=== PATIENT | male | born 1955 | race Caucasian/White ===

== ENCOUNTER 2023-01-21 07:55 | Outpatient (RCR) | payer MEDICARE, SELFPAY | END 2023-03-18 12:30 | disposition home or self-care (01) | LOC: PT 07:55 | PROVIDERS: PCP Family Medicine; Visit Provider Family Medicine | DX: M54.50 Low back pain, unspecified (principal) | CPT/HCPCS: 97010; 97012; 97110; 97112; 97140; 97162; G0283 ==

== ENCOUNTER 2023-06-01 08:37 | Outpatient (OUT) | payer MEDICARE, SELFPAY ==
[2023-06-01 08:55] LABS: Basophils Absolute Auto 0.1 10^3/uL (0.0-0.1); Basophils Percent Auto 1.3 % (0.2-2.0); Eosinophils Absolute Auto 0.2 10^3/uL (0.0-0.7); Hematocrit 37.1 % (42.0-54.0); Hemoglobin 12.3 g/dL (14.0-18.0); Immature Granulocytes Abs Auto 0.07 10^3/uL (0.00-0.03); Immature Granulocytes Pct Auto 0.9 % (0.0-0.5); Lymphocytes Absolute Auto 2.2 10^3/uL (1.2-3.8); Lymphocytes Percent Auto 29.1 % (20.5-60.0); Mean Corpuscular HGB Conc 33.2 g/dL (29.9-35.2); Mean Corpuscular Hemoglobin 31.5 pg (25.9-34.0); Mean Corpuscular Volume 95.1 fL (80.0-94.0); Monocytes Absolute Auto 0.9 10^3/uL (0.3-0.8); Monocytes Percent Auto 11.4 % (1.7-12.0); Neutrophils Absolute Auto 4.2 10^3/uL (1.4-6.5); Neutrophils Percent Auto 54.3 % (43.0-75.0); Platelet Count 171 10^3/uL (150-450); Red Cell Distribution Width 13.2 % (11.0-15.0); White Blood Count 7.7 10^3/uL (4.0-11.0)
[2023-06-01 09:45] LABS: Anion Gap 9.6; BUN Creatinine Ratio 12.2; Calcium 8.5 mg/dL (8.5-10.1); Carbon Dioxide 29.4 mmol/L (21.0-32.0); Chloride 107 mmol/L (98-107); Estimated GFR (African America >60 (>=60); Estimated GFR (Non-African Ame >60 (>=60); Glucose 112 mg/dL (74-106); Sodium 142 mmol/L (136-145)
--- NOTE | 2023-06-01 14:28 | CA_ITS ---
Patient Name Site Name [facility] No Medical Record Number Age Sex Date Time [id number] [facility]:[id number] M 06/01/2023 14:04 [facility] the [facility] ECHOCARDIOGRAM REPORT PROCEDURE: CA ECHO DOPPLER COMPLETE INDICATIONS: Dyspnea on exertion, coronary artery disease,hypertension COMPARISON: None. DESCRIPTION: COMPLETE ECHOCARDIOGRAM Real-time transthoracic echocardiography with 2D, M-mode, spectral and color flow Doppler performed. QUALITY: Technical quality was good. LEFT VENTRICLE: Normal chamber size. Proximal septal hypertrophy (sigmoid septum). Normal systolic function. LV EF: Normal left ventricular ejection fraction, (>55%). DIASTOLIC: Normal diastolic function. ATRIAL SEPTUM: LEFT ATRIUM: Normal chamber size. RIGHT ATRIUM: Normal chamber size. RIGHT VENTRICLE: Normal chamber size. Normal right ventricular systolic function. TRICUSPID VALVE: Normal mobility and thickness. No stenosis with mild regurgitation. Doppler studies reveal mildly (35-45) elevated right sided pressures. RVSP 38 mmHg MITRAL VALVE: Normal mobility and thickness. No evidence of mitral valve stenosis. There is no mitral annular calcification. Mild mitral regurgitation. AORTIC VALVE: Normal trileaflet appearance. Thickened aortic valve. Normal leaflet mobility. No evidence of aortic valve stenosis. Mild to moderate aortic regurgitation. AORTIC ROOT: Normal diameter and appearance. PULMONIC VALVE: Normal thickness and mobility. No stenosis. Trivial regurgitation. PERICARDIUM: No evidence of pericardial effusion. IVC: Collapses with inspirations. IVC is normal in size. PLEURA: CONCLUSION: 1. Normal left ventricular systolic function. LVEF is 65%. 2. Normal right ventricular size and systolic function. 3. Mild mitral, tricuspid and aortic regurgitation. 4. Mildly elevated right-sided pressures. Adult Echocardiography Procedure Report Left Ventricle LVEDD (3.7 - 5.6 cm): 4.06 cm LVESD (2.2 - 4.0 cm): 2.52 cm LVIVS thickness (0.6 - 1.2 cm): 1.15 cm LVPW thickness (0.5 - 1.0 cm): 0.94 cm e': 0.10 m/s E - e': 8.98 LVOT Max Gradient: 2.19 mm[Hg] LVOT Area (cm2): 0.74 m/s Peak Velocity (LVOT): 0.74 m/s LVOT Diameter 1.97 cm Left Atrium LA Volume Index (2D A2C): 35.92 ml/m2 Left Atrium Systolic Dimension: 3.32 cm Mitral Valve MV E to A Ratio: 1.47 Mitral Valve A-Wave Peak Velocity: 0.60 m/s Mitral Valve E-Wave Peak Velocity: 0.88 m/s Right Ventricle Aorta AO Root Diam: 2.98 cm Ascending Ao Diam: 2.69 cm Aortic Valve AoV Area (Peak You): 2.75 cm2, 2.75 cm2 Peak Velocity(Antegrade Flow): 0.82 m/s Peak Gradient(Antegrade Flow): 2.66 mm[Hg] Mean Velocity(Antegrade Flow): 0.52 m/s Mean Gradient(Antegrade Flow): 1.29 mm[Hg] Velocity Time Integral: 21.15 cm Tricuspid Valve Peak Velocity (Regurgitant Flow): 2.23 m/s, 2.68 m/s, 2.95 m/s Pulmonic Valve Peak Velocity: 0.90 m/s Peak Gradient: 3.16 mm[Hg], 3.30 mm[Hg] Right Atrium Right Atrium Systolic Pressure: 42.79 ml, 42.79 ml Dictated by: Mitchell Lewis M.D. on 06/01/2023 at 18:59 Approved by: Mitchell Lewis M.D. on 06/01/2023 at 19:03
== END 2023-06-01 08:38 | disposition home or self-care (01) ==
PROVIDERS: PCP Family Medicine; Visit Provider Internal Medicine Interventional Cardiology
DX: Z01.818 Encounter for other preprocedural examination (principal); R06.02 Shortness of breath; I08.3 Combined rheumatic disorders of mitral, aortic and tricuspid valves
CPT/HCPCS: 36415; 80048; 85025; 93306

== ENCOUNTER 2023-06-04 08:36 | Outpatient (OUT) | payer MEDICARE, SELFPAY ==
--- NOTE | 2023-06-04 08:39 | CT_ITS ---
[address] [address] Patient Name: [facility]MM TAI MRN: [id number] date: 1955 Sex: M Assigned Patient Location: CT Current Patient Location: CT Accession/Order Number: [id number] Exam Date: 06/04/2023 09:00 Report Date: 06/04/2023 09:52 At the request of: EVENS GIANG Procedure: CT chest wo/w con EXAM: CT chest wo/w con HISTORY: Lung Nodule COMPARISON: 11/11/2022 TECHNIQUE: Axial CT images were obtained of the chest without and with intravenous contrast. Multiplanar reconstructions were performed. CHEST FINDINGS: Lungs/Pleura: The lungs are clear. The right apical pulmonary nodule is stable in appearance measuring 6.9 mm in greatest dimension. No pleural effusion or pneumothorax. Cardiovascular: The heart is normal in size. Mild coronary artery calcifications are present. The aorta and pulmonary arteries are unremarkable. Pericardium: No effusion. Mediastinum: Unremarkable. Lymph Nodes: No lymph node enlargement by CT size criteria. Bones: No acute osseous abnormality. Soft tissues: Unremarkable. Upper Abdomen: Unremarkable. CT/CT chest wo/w con IMPRESSION: 1. No acute abnormality of the chest. 2. Stable pulmonary nodule in the right lung apex measuring 6.9 mm. A 12 month follow-up CT is recommended for surveillance. Electronically authenticated by: VIVIAN RODRIGUEZ Date: 06/04/2023 09:52
== END 2023-06-04 08:37 | disposition home or self-care (01) ==
LOC: CT 08:36
PROVIDERS: PCP Family Medicine; Visit Provider Family Medicine
DX: R91.1 Solitary pulmonary nodule (principal)
CPT/HCPCS: 71270; Q9967

== ENCOUNTER 2023-06-23 13:39 | Outpatient (RCR) | payer MEDICARE, SELFPAY | END 2023-07-15 16:07 | disposition home or self-care (01) | LOC: PT 13:39 | PROVIDERS: PCP Family Medicine; Visit Provider Family Medicine | DX: M54.59 Other low back pain (principal) | CPT/HCPCS: 97012; 97110; 97140; 97162 ==

== ENCOUNTER 2023-07-21 08:56 | Outpatient (OUT) | payer MEDICARE, SELFPAY ==
--- NOTE | 2023-07-21 | NM_ITS ---
Patient Name: [facility]MM TAI MR#: [id number] : 1955 Exam Date: 07/21/2023 Ordering Doctor: DR RAQUEL MURILLO M.D. RADIOLOGY REPORT PROCEDURE: NM FILIBERTO PERF SPECT REST STR COMPARISON: None. INDICATIONS: CHEST PAIN TECHNIQUE: Exam Description: Stress/Rest one day protocol gated SPECT Rest Imagin.6 mCi Tc-99m Cardiolite IV on 07/21/2023 Stress Imaging 31.4 mCi Tc-99m Cardiolite IV on 07/21/2023 Exercise Protocol: 0.4 mg Lexiscan given IV Heart Rate (bpm): Rest: 47 Max: 83 PMHR: 54 Blood Pressure: Rest: 152/84 Max: 156/86 Symptoms: Rest and peak stress ECG findings were normal and the exercise portion of the study was normal per attending physician Dr. Pennington . For more details please see separate cardiac stress test report. FINDINGS: QUALITY OF STUDY: Excellent. PERFUSION DEFECT: None. LOCATION: N/A SIZE: N/A. SEVERITY: N/A. TYPE: N/A. WALL MOTION: Normal. LV SIZE: Normal. 63 mL. TID / TCD: None; 1.0 LVEF: Normal. Calculated EF 66%. SUMMARY: Myocardial perfusion imaging study is NORMAL. CONCLUSION: 1. No perfusion abnormalities. Normal myocardial perfusion scan 2. Normal exercise test Dictated by: Derrick Stephen MD on 07/22/2023 at 08:33 Approved by: Derrick Stephen MD on 07/22/2023 at 08:35
--- NOTE | 2023-07-21 | PCN_ITS ---
CARDIAC STRESS TEST Requesting Physician:? Eliane Soto M.D. ? Procedure Date:? 07/21/2023 REASON FOR THE TEST:? Chest pain. Patient underwent a Lexiscan stress test.? At baseline, the heart rate was 47 beats per minute at a blood pressure of 152/84 mm/Hg.? Following infusion, the heart rate was noted to be 83 beats per minute and the blood pressure was 156/86 mm/Hg.? Initial EKG showed sinus bradycardia with normal intervals.? Following infusion, there was no evidence of AV block or ST segment changes suggestive of ischemia.? Patient experienced symptoms of chest heaviness and back pain.? There was no evidence of any arrhythmias during the test. INTERPRETATION: 1.? No EKG evidence of ischemia seen with the stress test. 2.? No evidence of any AV block with administration of Lexiscan. 3.? Radiology Department to dictate the perfusion part of the stress test. [facility] CENTERDecue
[2023-07-21] MEDS: REGADENOSON 0.4 MG/5 ML SYRINGE IV (10:27)
== END 2023-07-21 08:57 | disposition home or self-care (01) ==
LOC: NM 08:56
PROVIDERS: PCP Family Medicine; Visit Provider Internal Medicine Interventional Cardiology
DX: R07.89 Other chest pain (principal); I25.110 Atherosclerotic heart disease of native coronary artery with unstable angina pectoris
CPT/HCPCS: 78452; 93017; A9500; J2785

== ENCOUNTER 2023-07-23 08:44 | Outpatient (OUT) | payer MEDICARE, SELFPAY ==
--- NOTE | 2023-07-23 08:47 | MR_ITS ---
[facility] [place] [id number] Patient Name: UMM TAI MRN: [id number] date: 1955 Sex: M Assigned Patient Location: MRI Current Patient Location: MRI Accession/Order Number: [id number] Exam Date: 07/23/2023 09:00 Report Date: 07/23/2023 11:29 At the request of: EVENS GIANG Procedure: MR lumbar spine wo con MR lumbar spine wo con, 07/23/2023 9:00 AM EST INDICATION: Radiculopathy Lumbar Region M54.16 COMPARISON: There is no appropriate prior study for comparison. TECHNIQUE: Multiplanar, multisequential MRI images of lumbar spine were obtained without contrast. FINDINGS: There is lumbarization of S1 For dictation purposes, the lowest complete disc space in the lumbar spine considered as S1-S2. Right renal lesion with T2 prolongation not fully characterized by this study and statistically may suggest simple renal cyst. There is loss of normal physiologic lumbar lordosis. The vertebral height is preserved. The conus medullaris is at the level of L1. No signal abnormality within the visualized spinal cord is noted. Level of T12-L1 is unremarkable. No neural foraminal narrowing or canal stenoses at the level of L1-L2 and L2-L3 is noted. At the level of L3-4, there are disc bulge with no neuroforaminal narrowing and no canal stenosis. At the level of L4-5, there are disc bulge with mild bilateral neuroforaminal narrowing and no canal stenosis. At the level of L5-S1, there are disc bulge with superimposed right lateral extrusion with inferior migration with mild right neuroforaminal narrowing and mild right canal stenosis. The right S1 nerve root is in close contact with the disc bulge in the lateral recess. The paraspinal muscles are unremarkable. MR/MR lumbar spine wo con IMPRESSION: Transitional anatomy. Mild degenerative changes of lumbar spine in particular at L5-S1. Electronically authenticated by: RUBA VARGAS Date: 07/23/2023 11:29
== END 2023-07-23 08:45 | disposition home or self-care (01) ==
LOC: MRI 08:44
PROVIDERS: PCP Family Medicine; Visit Provider Family Medicine
DX: M54.16 Radiculopathy, lumbar region (principal); M51.36 Other intervertebral disc degeneration, lumbar region
CPT/HCPCS: 72148

== ENCOUNTER 2023-08-06 10:00 | Outpatient (OUT) | payer MEDICARE, SELFPAY ==
--- NOTE | 2023-08-06 10:06 | PM.CN ---
Consult Note: HPI Data of Consult Patient: new to practice Consult date: 08/06/23 Requesting Physician: Nat Benedict NP Primary Care Provider: Eriberto Archer MD Consult Narrative Reason for consult: new pt consult Narrative: Donnie Denton a pleasant 68 year old male presents for evaluation and management of chronic lumbar pain with radiculopathy. Patient has a history of lumbar pain with radiculopathy that was responsive to NSAIDs and PT, however over the last 6 weeks he has been unable to ambulate without a walker and is finding little to no benefit from medications, PT and HEP makes his pain worse. Patient reporting pain 6/10 today in right low back radiating into buttock and right leg, describes this as a sharp shooting pain. Pain is worse with all activity and movement. cc:: CC: Nat Benedict NP Review of Systems ROS Status of ROS 10 or more systems reviewed and unremarkable except as noted in history and below Musculoskeletal Reports: back pain and muscle weakness Exam Constitutional Documenting provider has reviewed patient's vital signs: yes Common normals: no apparent distress, oriented x3, healthy appearing, alert and well nourished General appearance: cooperative HENMT Common normals: normocephalic, hearing grossly normal bilaterally and moist oral mucous membranes Head and scalp: normocephalic Eye Common normals: PERRL Pupil: PERRL Neck & C-Spine Common normals: full ROM General: normal visual inspection Chest Common normals: inspection of chest normal Respiratory Common normals: normal respiratory effort, no retractions and no use of accessory muscles Back & Pelvis Lumbar spine/lower back: ROM limited, pain with ROM and straight leg raise positive right Extremity Common normals: normal to inspection and full ROM Neuro Common normals: oriented x3, CN's II-XII intact bilaterally, moves all extremities, no focal motor deficits, no sensory deficits noted and deep tendon reflexes 2+ bilaterally Sensorium/orientation: alert Gait (neuro): antalgic and assistive device used (walker) Motor exam: no movement abnormalities noted and strength abnormal (4/5 in RLE) Psych Common normals: mental status grossly normal, thought process normal, cooperative, affect normal, speech normal and activity/motor behavior normal Speech: normal speech Thought process: normal thought process Assessment and Plan Assessment and Plan (1) Lumbar radiculopathy: Assessment and Plan: The patient has had over 3 months of moderate to severe low back pain with radiculopathy with functional impairment and inadequate response to conservative care including NSAIDS (unless there are contraindication such as concurrent blood thinners), multiple oral or topical pain medications, and home exercise program/physical therapy.? Patient has completed >6 weeks of guided home exercise program and/or formal physical therapy program without relief of their symptoms.? I have reviewed the imaging of the lumbar spine and no red flags were identified.? The imaging reveals radiographic findings consistent with lumbar radiculopathy The Oswestry Disability Index was completed, and the patient scored a 66%.? We discussed the risks and benefits of the procedure with the patient, and we are NOT planning on using sedation as outlined in the guidelines from Medicare unless there is a documented reason that sedation would be strongly recommended.?? ?The procedure will be completed with fluoroscopic guidance.? Plan -start mobic 15mg daily -right L4-5 L5-S1 under fluoroscopy -BATCH BLENDER reviewed and signed -f/u 1-2 weeks after injection
--- OUTSIDE RECORDS SUMMARY | 2023-08-06 10:39 | XMS_ITS | CCD ---
Author Name Unknown Address [address] [place] [address] Organization [facility] Care Team Providers Care Attorney Law Clerk Name Role Phone HOY ., DR HORNER Admitting Unavailable HOY ., DR HORNER Attending Unavailable HOY ., DR HORNER Primary Care Unavailable HOY ., DR HORNER Consulting Unavailable HOY ., DR HORNER Primary Care Unavailable HOY ., DR HORNER Admitting Unavailable HOY ., DR HORNER Attending Unavailable HOY ., DR HORNER Consulting Unavailable WEST, DR ANTONI Mantilla Consulting Unavailable HOY ., DR HORNER Primary Care Unavailable HOY ., DR HORNER Admitting Unavailable HOY ., DR HORNER Attending Unavailable HOY ., DR HORNER Consulting Unavailable ZIEBER, DR PA Campbell Consulting Unavailable HOY ., DR HORNER Primary Care Unavailable HOY ., DR HORNER Admitting Unavailable HOY ., DR HORNER Attending Unavailable HOY ., DR HORNER Consulting Unavailable WEST, DR ANTONI Mantilla Consulting Unavailable ANTONI PENALOZA Consulting Unavailable HOY ., DR HORNER Primary Care Unavailable HOY ., DR HORNER Admitting Unavailable HOY ., DR HORNER Attending Unavailable HOY ., DR HORNER Consulting Unavailable ANTONI JOLLEY Consulting Unavailable HOY ., DR HORNER Primary Care Unavailable LEXIS MISTRY Consulting Unavailable LEXIS MISTRY Admitting Unavailable LEXIS MISTRY Attending Unavailable JAIMIE COOPER Consulting Unavailable HOY ., DR HORNER Primary Care Unavailable HOY ., DR HORNER Admitting Unavailable HOY ., DR HORNER Attending Unavailable HOY ., DR HORNER Primary Care Unavailable HOY ., DR HORNER Attending Unavailable HOY ., DR HORNER Admluke Unavailable HOY ., DR HORNER Consulting Unavailable LAWANDA VEE Consulting Unavailable Pramod HAYWARD Attending Unavailable EL[place]HAWY, EHAB Attending Unavailable EL[place]HAWY, EHAB Admitting Unavailable [place]HAWY, EHAB Attending Unavailable BLAYNE DAILY Attending Unavailable ELIANE SOTO Referring Unavailable Evens Archer MD Attending Unavaila ble Allergies Allergy Classification Reported Allergen(s) Allergy Type Date of Onset Reaction(s) Facility (3 sources) Penicillins; 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: [penicillins] Drug allergy (disorder) 10-25-2014 [facility] Repository (2 sources) HYDROcodone; 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: [HYDROcodone] Drug Allergy 10-25-2014 [facility] Repository (1 source) nabumetone; 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: [Relafen] Drug Allergy [facility] Repository (1 source) amLODIPine; 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: [AMLODIPINE] Drug Allergy 05-20-2023 [facility] Repository (1 source) nabumetone; 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: [NABUMETONE] Drug Allergy 10-25-2014 [facility] Repository Problems Active Problems Problem Classification Problem Date Documented Date Episodic/Chronic Coronary atherosclerosis and other heart disease (3 sources) Atherosclerotic heart disease of [place] coronary artery without angina pectoris; 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: [Unstable angina] Onset: 04-24-2022 Chronic Disorders of lipid metabolism (1 source) Hyperlipidemia, unspecified; 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: [HYPERLIPIDEMIA UNSPECIFIED] Onset: 06-06-2022 Chronic Diverticulosis and diverticulitis (1 source) Diverticulitis of large intestine without perforation or abscess without bleeding; 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: [DVTRCLI LG INT NO PERF/ABSC W/O BL] Onset: 04-24-2022 Chronic Essential hypertension (1 source) Essential (primary) hypertension; 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: [ESSENTIAL PRIMARY HYPERTENSION] Onset: 06-06-2022 Chronic Gout and other crystal arthropathies (1 source) Gout, unspecified; 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: [GOUT UNSPECIFIED] Onset: 06-06-2022 Chronic Nonspecific chest pain (6 sources) Chest pain, unspecified; 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: [Other chest pain] Onset: 04-20-2022 Episodic Other connective tissue disease (6 sources) Other specified soft tissue disorders; 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: [OTHER SPEC SOFT TISSUE DISORDERS] Onset: 06-03-2022 Episodic Other lower respiratory disease (4 sources) Solitary pulmonary nodule; 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: [SOLITARY PULMONARY NODULE] Onset: 11-11-2022 Episodic Other lower respiratory disease (3 sources) Other forms of dyspnea; 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: [OTHER FORMS OF DYSPNEA] Onset: 06-06-2022 Episodic Other lower respiratory disease (2 sources) Shortness of breath; 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: [Shortness of breath] Onset: 06-17-2023 Episodic Other non-traumatic joint disorders (4 sources) Pain in right hip; 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: [PAIN IN RIGHT HIP] Onset: 11-13-2022 Episodic Other screening for suspected conditions (not mental disorders or infectious disease) (4 sources) Encounter for screening for malignant neoplasm of prostate; 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: [Encounter for screening for malignant neoplasm of rectum] Onset: 06-06-2022 Episodic Unclassified (1 source) CONTACT W/AND (SUSP) EXPOS COVID-19; 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: [CONTACT W/AND (SUSP) EXPOS COVID-19] Onset: 04-24-2022 Past or Other Problems Problem Classification Problem Date Documented Da te Episodic/Chronic Abdominal pain (1 source) Unspecified abdominal pain; 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: [UNSPECIFIED ABDOMINAL PAIN] Onset: 04-24-2022 Episodic Diabetes mellitus without complication (1 source) Other abnormal glucose; 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: [OTHER ABNORMAL GLUCOSE] Onset: 06-06-2022 Episodic Nausea and vomiting (1 source) Nausea with vomiting, unspecified; 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: [NAUSEA WITH VOMITING UNSPECIFIED] Onset: 04-24-2022 Episodic Other aftercare (1 source) [facility] (current) use of aspirin; 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: [JEWEL HOLE DRILLER CURRENT USE OF ASPIRIN] Onset: 04-24-2022 Episodic Phlebitis; thrombophlebitis and thromboembolism (6 sources) Personal history of other venous thrombosis and embolism; 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: [Embolism and thrombosis of superficial veins of left lower extremity] Onset: 12-11-2021 Episodic Spondylosis; intervertebral disc disorders; other back problems (4 sources) Radiculopathy, cervical region; 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: [RADICULOPATHY CERVICAL REGION] Onset: 08-13-2022 Episodic Results Test Name Value Interpretation Reference Range Facility 37on 07-08-2023 37 *Take lasix for 2 da ys then as needed *Limit salt/sodium intake Normal [facility] Office Visiton 07-08-2023 Follow-up visit [id number] Chung Denton 1955 M Date Provider Department Center 07/08/2023 Kevin-BLAYNE [facility]ILY [facility] Family History Problem Relation Age of Onset Heart attack Paternal Grandfather Family Status - Relation Status Age at Paternal Grandfather Level of Service:14184 MT OFFICE/OUTPATIENT ESTABLISHED MOD MDM 30-39 MIN Reason for Visit and Comments: Edema [[id number]] Normal [facility] ANESon 06-29-2023 ANES -- Attestation signed by Eliane Soto MD at 06/29/2023 9:56 AM Eliane Soto MD, MPH, [facility], [facility], [facility] Interventional Cardiology Pager Email: [email or web address] Patient: Donnie Denton Procedure Information Date/Time: 06/29/23 1030 Procedures: Coronary angiography (Bilateral) - per Maria G in pre-cert at [facility], this has already been authorized thru Aug 2023 - right femoral approach Right heart cath Location: [facility] TRIPLE VALVE TESTER 3 / [facility] (Cath) Providers: Eliane Soto MD Clinical information reviewed: Allergies Meds Physical Exam Airway Mallampati: III Cardiovascular Rhythm: regular Rate: normal Dental Pulmonary Breath sounds clear to auscultation Abdominal Anesthesia Plan ASA 3 other (Moderate sedation) Anesthetic plan and risks discussed with patient. Use of blood products discussed with patient who consented to blood products. Plan discussed with fellow and attending. Additional Equipment Requests Normal [facility] HPon 06-29-2023 HP -- Attestation signed by Eliane Soto MD at 06/29/2023 9:57 AM Eliane Soto MD, MPH, [facility], [facility], [facility] Interventional Cardiology Pager Email: [email or web address] History Of Present Illness Donnie Denton is a 68 y.o. 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 He was seen in the outpatient clinic for preoperative clearance for hernia surgery. At this time he was complaining of intermittent chest pain or shortness of breath with exertion. He had a cardiac cath in 2015 that showed moderate to severe two-vessel disease. He was evaluated by cardiothoracic surgery at [facility] and elected to pursue medical management at this time. Currently he denies any active chest pain, shortness of breath, PND, dyspnea. Past Medical History He has a past medical history of Coronary artery disease, Hyperlipidemia, and Hypertension. Surgical History He has a past surgical history that includes Cardiac catheterization; Tonsillectomy; Appendectomy; Finger amputation; and Neck surgery. Social History He reports that he has never smoked. He has never used smokeless tobacco. He reports that he does not currently use alcohol. No history on file for drug use. Allergies Hydrocodone, Nabumetone, Penicillins, and Amlodipine Medications Medications Prior to Admission Medication Sig Dispense Refill Last Dose aspirin 325 mg tablet Take 325 mg by mouth in the morning. 06/29/2023 atorvastatin (Lipitor) 40 mg tablet Take 40 mg by mouth at bedtime. 06/28/2023 carvedilol (Coreg) 25 mg tablet Take 1 tablet (25 mg) by mouth with breakfast and with evening meal. 180 tablet 3 06/29/2023 lansoprazole (Prevacid) [address] capsule Take 15 mg by mouth 2 times daily. 06/29/2023 levothyroxine (Synthroid) 50 mcg tablet Take 50 mcg by mouth. 06/28/2023 ranolazine (Ranexa) 500 mg 12 hr tablet Take 500 mg by mouth 2 times daily. 06/29/2023 zolpidem (Ambien) 10 mg tablet TAKE 1 TABLET BY MOUTH ONCE DAILY AT BEDTIME NEEDED FOR 90 DAYS 06/28/2023 Review of Systems All other systems reviewed and are negative. Physical Exam Vitals reviewed. HENT: Head: Normocephalic. Mouth/Throat: Mouth: Mucous membranes are moist. Pharynx: Oropharynx is clear. Eyes: Extraocular Movements: Extraocular movements intact. Conjunctiva/sclera: Conjunctivae normal. Cardiovascular: Rate and Rhythm: Normal rate. Pulses: Normal pulses. Pulmonary: Effort: Pulmonary effort is normal. Abdominal: General: Abdomen is flat. Musculoskeletal: General: Normal range of motion. Skin: General: Skin is warm. Capillary Refill: Capillary refill takes less than 2 seconds. Neurological: General: No focal deficit present. Mental Status: He is alert. Psychiatric: Mood and Affect: Mood normal. Last Recorded Vitals Blood pressure (!) 182/80, pulse (!) 49, resp. rate 16, SpO2 100 %. Relevant Results Reviewed Assessment/Plan Principal Problem: Pre-op evaluation Active Problems: Chest pain Shortness of breath Assessment: Two-vessel coronary artery disease Accelerating angina Dyspnea on exertion Hypertensive disorder GERD Plan: Proceed with coronary angiogram and right heart cath for preoperative clearance however in the setting of accelerating angina and dyspnea on exertion. And previous moderate to severe CAD that has been medically treated since 2014. Meaghan Mukherjee DO, MPH Supervisor [employer] [facility] Nabila 06-29-2023 KIERA RN educated pt on d/ c instructions. RN encouraged pt to voice any questions or concerns. Pt verbalizes no questions or concerns at this time. [facility] Orders Onlyon 06-17-2023 Orders Only [id number] Chung Denton 1955 Date Provider Department Center 06/17/2023 928-DEIRDRE RIDLEY [facility] Family History Problem Relation Age of Onset Heart attack Paternal Grandfather Family Status - Relation Status Age at Paternal Grandfather Normal [facility] Letter (Out)on 05-26-2023 Letter (Out) [id number] Chung Denton R 1955 M Date Provider Department Center 05/26/2023 None-None [facility] AUTH [facility] Family History Problem Relation Age of Onset Heart attack Paternal Grandfather Family Status - Relation Status Age at Paternal Grandfather Normal [facility] Office Visiton 05-20-2023 Follow-up visit [id number] Chung Denton bee R 1955 M Date Provider Department Center 05/20/2023 Richa-ELIANE SOTO [facility] Family History Problem Relation Age of Onset Heart attack Paternal Grandfather Family Status - Relation Status Age at Paternal Grandfather Level of Service:18647 MT OFFICE/OUTPATIENT [facility] 60-74 MINUTES Normal [facility] Orders Onlyon 05-20-2023 Orders Only [id number] Chung Denton bee R 1955 M Date Provider Department Center 05/20/2023 Jason5-HIMANSHU MCMILLAN [facility] Family History Problem Relation Age of Onset Heart attack Paternal Grandfather Family Status - Relation Status Age at Paternal Grandfather Normal [facility] Facesheeton 05-14-2023 Facesheet [id number] D:127 Normal [facility] Ambulatory Visit Summaryon 0 05-13-2023 Ambulatory Visit Summary DONNIE DENTON :1955 Visit Date:05/13/2023 Ambulatory Visit Instructions Your Care Team Attending Physician - LYNNETTE MUÑOZ, Pramod Campbell Primary Care Physician - Evens Archer MD This Is Your Medications List Contact prescribing physician if questions or concerns aspirin atorvastatin (atorvastatin 40 mg Tab) lansoprazole (lansoprazole 15 mg Dis Tab) levothyroxine (Synthroid 50 mcg Tab) metoprolol (metoprolol 25 mg ER Tab) nitroglycerin (NitroStat 0.4 mg Tab) ranolazine (ranolazine 500 mg oral ER Tab) zolpidem (Ambien 10 mg Tab) Procedures Performed Amputation of phalanx of finger, Appendectomy, Cardiac catheterization, Laminectomy approach to cervical spine, Tonsillectomy. Discharge Vitals Heart Rate (Peripheral) 68 Respiratory Rate 16 Blood Pressure 118/70 Height 170 cm Height 67 in Weight 63.8 kg Weight 140.36 lb BMI 22.08 Medications What How Much When Instructions Unchanged aspirin 325 Milligram By Mouth Every day Contact prescribing physician if questions or concerns Unchanged atorvastatin (atorvastatin 40 mg Tab) 1 Tablets By Mouth Every day Contact prescribing physician if questions or concerns Unchanged lansoprazole (lansoprazole 15 mg Dis Tab) 1 Tablets By Mouth 2 times a day Contact prescribing physician if questions or concerns Unchanged levothyroxine (Synthroid 50 mcg Tab) 1 Tablets By Mouth Every day Contact prescribing physician if questions or concerns Unchanged metoprolol (metoprolol 25 mg ER Tab) 0.5 Tablets By Mouth 2 times a day Contact prescribing physician if questions or concerns Unchanged nitroglycerin (NitroStat 0.4 mg Tab) 1 Tablets Sublingual Every 5 minutes Contact prescribing physician if questions or concerns Unchanged ranolazine (ranolazine 500 mg oral ER Tab) 1 Tablets By Mouth 2 times a day Contact prescribing physician if questions or concerns Unchanged zolpidem (Ambien 10 mg Tab) 1 Tablets By Mouth Once a day (at bedtime) as needed for for sleep Contact prescribing physician if questions or concerns Allergies HYDROcodone Relafen (Dysphagia) penicillins (Syncope) Problems Ongoing - Any problem that you are currently receiving treatment for. BMI 22.0-22.9, adult Cervical radiculopathy Cervical spondylosis Coronary arteriosclerosis Diverticulitis Dyshidrotic eczema Gout Hearing loss History of nephrolithiasis HTN (hypertension) Hyperlipidemia Insomnia Lumbar radiculopathy Sialolithiasis Superficial thrombosis of leg Historical - Any problem that you are no longer receiving treatment for. Amputation finger-complicated Cervicalgia Chest pain Conjunctivitis Diverticulitis of colon Dyspnea Foot pain Gastroenteritis Hematuria HTN (hypertension) Inguinal hernia Sialolithiasis Sinusitis Spondylosis of cervical spine Ureteral calculus Normal [facility] Physician Referralon 023 Physician Referral [id number] 04 [id number]#[id number] CD:127 Normal [facility] XR HIP RT 2 3V W PELVISon XR HIP RT 2 3V W PELVIS EXAM: AP of the pelvis and right hip HISTORY: . Pain in right hip joint TECHNIQUE: 2 views FINDINGS: Bony pelvis is intact. No fracture or bony destructive process is noted. No fracture or dislocation of the right hip is noted. Joint spaces well-maintained. Surrounding soft tissues are unremarkable. Impression: 1. Negative AP of the pelvis. 2. Negative right hip Electronically authenticated by: ANTONI PENALOZA Date: 2022-11-13 22:38 Normal [facility] XR LSPINE MIN 4 VIEWSon 10-17 XR LSPINE MIN 4 VIEWS EXAMINATION: XR LSPINE MIN 4 VIEWS HISTORY: Pain in right hip joint COMPARISON: No relevant comparison available. FINDINGS: BONES: Mild to moderate widespread spondylosis and facet osteoarthritis. No visible acute bony abnormality. DISC SPACES: Normal. No significant disc height narrowing, subluxation, or endplate abnormality. PARASPINOUS: Negative. No paraspinous abnormality is seen. OTHER: Negative. IMPRESSION: [id number] degenerative changes Electronically authenticated by: ANTONI TRACEY Date: 2022-11-14 07:58 Normal [facility] CREATININEon 11-11-2022 Creatinine [Mass/Vol] 1.04 mg/dL Normal 0.70-1.30 [facility] Comment on above: Performed By: #### C ASIF #### [facility] [address] [place] [address] Dr. Gianni Deluna EGFR-AF BELIZEAN >60 Normal >=60 [facility] Comment on above: Performed By: #### C ASIF #### [facility] [address] [place] [address] Dr. Gianni Deluna EGFR-NON AF BELIZEAN >60 Normal >=60 [facility] Comment on above: Performed By: #### C ASIF #### [facility] [address] [place] [address] CHEST W CONon 11-11-2022 CT CHEST W CON EXAMINATION: CT CHES T W CON HISTORY: Influenza ; follow-up lung nodule, chronic chest pain COMPARISON: No relevant comparison available. TECHNIQUE: Multi-planar CT images were created with IV contrast. Axial, Coronal, and Sagittal images. Dose reduction techniques were achieved by using automated exposure control and/or adjustment of mA and/or kV according to patient size and/or use of iterative reconstruction technique. FINDINGS: LUNGS: 7 x 5 x 4 mm nodule within right lung apex. No pulmonary infiltrates or significant chronic interstitial changes. PLEURA: Apical pleural scarring. No pneumothorax or pleural effusion. VASCULATURE: No abnormality. LESLEY: No mass or adenopathy. MEDIASTINUM: No mass or adenopathy. CARDIAC: No enlargement, pericardial thickening, or significant calcification. AORTA: No aneurysm or dissection. CHEST WALL: No mass or axillary adenopathy. BONES: Transverse fracture across the proximal sternum, below the sternomanubrial joint, with 1 mm step off and increased density of the marrow cavity. LIMITED ABDOMEN: No suspicious findings Limited images of the upper abdomen. OTHER: Negative. IMPRESSION: 1. Right apical 7 x 5 x 4 mm nodule; not overtly suspicious but follow-up imaging in 6 months is recommended to document stability. No prior studies or reports available for comparison. 2. Subacute, essentially nondisplaced, fracture of the proximal sternum. Electronically authenticated by: PA CROW Date: 2022-11-11 11:29 Normal [facility] MRI [facility] WO CONon 08-14-20 MRI [facility] CON EXAMINATION: [facility] HISTORY: Cervical radiculopathy COMPARISON: No relevant comparison available. TECHNIQUE: A variety of imaging planes and parameters were utilized for visualization of suspected pathology. FINDINGS: CRANIOCERVICAL AREA: Normal foramen magnum with no Chiari malformation. PARASPINAL AREA: Normal with no visible mass. BONES: Straightening of normal cervical lordosis. No acute fracture or spondylolisthesis. Signal dropout from anterior fusion hardware extending from C4 to C6. CORD: Normal caliber, contour, and signal intensity. CERVICAL DISC LEVELS: C2-C3: Early degenerative disc disease is present without focal protrusion or neural impingement. C3-C4: Moderate disc space narrowing and disc desiccation. Mild diffuse disc/osteophyte complex deforms the ventral spinal cord narrowing the central canal to 7.1 mm in AP dimension. No definite foraminal stenosis C4-C5: Anterior fusion. No central or foraminal stenosis C5-C6: Anterior fusion. No central or foraminal stenosis C6-C7: Moderate to severe disc space narrowing. Moderate diffuse disc/osteophyte complex. Narrowing of the central canal to 8.9 mm in AP dimension. Moderate right and mild left foraminal stenosis C7-T1:. No significant disc/facet abnormality, spinal stenosis, or foraminal stenosis. IMPRESSION: Degenerative changes most significant at C6-C7 where there is moderate right and mild left foraminal stenosis Electronically authenticated by: ANTONI TRACEY Date: 2022-08-14 09:19 Normal [facility] INSULINon 06-04-2022 Insulin 13.5 uIU/mL Normal 2.6-24.9 [facility] Comment on above: Performed By: #### L ACT #### [facility] [address] [place] [address] Dr. Gianni Deluna CBC AUTO DIFFon 06-03-2022 BASO # 0.1 103/ul Normal 0.0-0.1 [facility] Comment on above: Performed By: #### L ACT #### [facility] [address] [place] [address] Dr. Gianni Deluna Basophils/100 WBC (Bld) 1.2 % Normal 0.2-2.0 [facility] Comment on above: Performed By: #### L ACT #### [facility] [address] [place] [address] Dr. Gianni Deluna EO # 0.4 103/ul Normal 0.0-0.7 [facility] Comment on above: Performed By: #### L ACT #### [facility] [address] [place] [address] Dr. Gianni Deluna Eosinophils/100 WBC (Bld) 5.9 % Normal 0.9-7.0 [facility] Comment on above: Performed By: #### L ACT #### [facility] [address] [place] [address] Dr. Gianni Deluna Erythrocyte distribution width (RBC) [Ratio] 13.4 % Normal 11.0-15.0 [facility] Comment on above: Performed By: #### L ACT #### [facility] [address] [place] [address] Dr. Gianni Deluna Hematocrit (Bld) [Volume fraction] 39.6 % Critically low 42.0-54.0 [facility] Comment on above: Performed By: #### L ACT #### [facility] [address] [place] [address] Dr. Gianni Deluna Hemoglobin (Bld) [Mass/Vol] 12.8 g/dL Critically low 14.0-18.0 [facility] Comment on above: Performed By: #### L ACT #### [facility] [address] [place] [address] Dr. Gianni Deluna IG # 0.04 10e3/ul Critically high 0.00-0.03 [facility] Comment on above: Performed By: #### L ACT #### [facility] [address] [place] [address] Dr. Gianni Deluna IG % 0.7 % Critically high 0.0-0.5 [facility] Comment on above: Performed By: #### L ACT #### [facility] [address] [place] [address] Dr. Gianni Deluna LYMPH # 1.9 103/ul Normal 1.2-3.8 [facility] Comment on above: Performed By: #### L ACT #### [facility] [address] [place] [address] Dr. Gianni Deluna Lymphocytes/100 WBC (Bld) 31.7 % Normal 20.5-60.0 [facility] Comment on above: Performed By: #### L ACT #### [facility] [address] [place] [address] Dr. Gianni Deluna MANUAL DIFF REQ NO Normal [facility] Comment on above: Performed By: #### L ACT #### [facility] [address] [place] [address] Dr. Gianni Deluna MCH (RBC) [Entitic mass] 30.2 pg Normal 25.9-34.0 [facility] Comment on above: Performed By: #### L ACT #### [facility] [address] [place] [address] Dr. Gianni Deluna MCHC (RBC) [Mass/Vol] 32.3 g/dL Normal 29.9-35.2 [facility] Comment on above: Performed By: #### L ACT #### [facility] [address] [address] [address] Gianni Deluna MCV (RBC) [Entitic vol] 93.4 fL Normal 80.0-94.0 [facility] Comment on above: Performed By: #### L ACT #### [facility] [address] [address] [address] Gianni Deluna MONO # 0.7 103/ul Normal 0.3-0.8 [facility] Comment on above: Performed By: #### L ACT #### [facility] [address] [address] [address] Gianni Deluna Monocytes/100 WBC (Bld) 11.9 % Normal 1.7-12.0 [facility] Comment on above: Performed By: #### L ACT #### [facility] [address] [address] [address] Gianni Deluna NEUT # 2.9 103/ul Normal 1.4-6.5 [facility] Comment on above: Performed By: #### L ACT #### [facility] [address] [address] [address] Gianni Deluna Neutrophils/100 WBC (Bld) 48.6 % Normal 43.0-75.0 [facility] Comment on above: Performed By: #### L ACT #### [facility] [address] [address] [address] Gianni Deluna Platelet mean volume (Bld) [Entitic vol] 9.1 fL Critically low 9.5-13.5 [facility] Comment on above: Performed By: #### L ACT #### [facility] [address] [address] [address] Gianni Deluna PLT 168 103/ul Normal 150-450 [facility] Comment on above: Performed By: #### L ACT #### [facility] [address] [address] [address] Gianni Deluna RBC 4.24 106/ul Critically low 4.70-6.10 [facility] Comment on above: Performed By: #### L ACT #### [facility] [address] [address] [address] Gianni Deluna WBC 6.0 103/ul Normal 4.0-11.0 [facility] Comment on above: Performed By: #### L ACT #### [facility] [address] [address] [address] Gianni Deluna FREE THYROXINE INDEX T7on FTI 1.91 Normal 1.30-4.50 [facility] Comment on above: Performed By: #### L ACT #### [facility] [address] [address] [address] Gianni Deluna T3U 36.0 % Normal 33.0-40.0 [facility] Comment on above: Performed By: #### L ACT #### [facility] [address] [place] [address] Dr. Gianni Deluna T4 [Mass/Vol] 5.30 ug/dL Normal 4.50-12.10 [facility] Comment on above: Performed By: #### L ACT #### [facility] [address] [address] [address] Gianni Deluna GLYCOHEMOGLOBIN A1Con 2021 ADA RECOMMENDATION SEE BELOW Normal [facility] Comment on above: Result Comment: ADA RECOMMENDED LIMIT 4.0 - 6.0 ADA THERAPEUTIC TARGET < 7.0 ACTION SUGGESTED > 7.0 Performed By: #### D DIM #### [facility] [address] [address] [address] Gianni Deluna Glucose [Mass/Vol] 140 mg/dL Normal [facility] Comment on above: Performed By: #### D DIM #### [facility] [address] [address] [address] Gianni Deluna HbA1c (Bld) [Mass fraction] 6.5 % Critically high 4.5-6.2 [facility] Comment on above: Performed By: #### D DIM #### [facility] [address] [place] [address] Dr. Gianni Deluna LIPID PROFILEon 06-03-2022 CHOL-HDL RATIO NORM SEE BELOW Normal [facility] Comment on above: Result Comment: 3.3 - 4.4 LOW RISK 4.4 - 7.1 AVERAGE RISK 7.1 - 11.0 MODERATE RISK >11.0 HIGH RISK Performed By: #### T SH, T7, URIC, CMP, LIPID #### [facility] [address] [address] [address] Gianni Deluna Cholesterol [Mass/Vol] 104 mg/dL Normal <=200 [facility] Comment on above: Performed By: #### T SH, T7, URIC, CMP, LIPID #### [facility] [address] [address] [address] Gianni Deluna Cholesterol in HDL [Mass/Vol] 49 mg/dL Normal 40-60 [facility] Comment on above: Performed By: #### T SH, T7, URIC, CMP, LIPID #### [facility] [address] [place] [address] Dr. Gianni Deluna Cholesterol in LDL [Mass/Vol] 46.6 mg/dL Normal [facility] Comment on above: Performed By: #### T SH, T7, URIC, CMP, LIPID #### [facility] [address] [address] [address] Gianni Deluna Cholesterol.total/Ch olesterol in HDL [Mass ratio] 2.1 {ratio} Normal [facility] Comment on above: Performed By: #### T SH, T7, URIC, CMP, LIPID #### [facility] [address] [address] [address] Gianni Deluna HDL NORMAL > or = 60 mg/dl - LO W CARDIOVASCULAR RISK <40 mg/dl - HIGH CARDIOVASCULAR RISK Normal [facility] Comment on above: Performed By: #### T SH, T7, URIC, CMP, LIPID #### [facility] [address] [place] [address] Dr. Gianni Deluna LDL CALC NORMAL SEE BELOW Normal [facility] Comment on above: Result Comment: <100 mg/dl OPTIMAL 100 - 129 mg/dl NEAR OR ABOVE OPTIMAL 130 - 159 mg/dl BORDERLINE HIGH 160 - 189 mg/dl HIGH >190 mg/dl VERY HIGH Performed By: #### T SH, T7, URIC, CMP, LIPID #### [facility] [address] [address] [address] Gianni Deluna Triglyceride [Mass/Vol] 42 mg/dL Normal <=150 [facility] Comment on above: Performed By: #### T SH, T7, URIC, CMP, LIPID #### [facility] [address] [address] [address] Gianni Deluna VLDL CALC 8.4 mg/dL Normal [facility] Comment on above: Performed By: #### T SH, T7, URIC, CMP, LIPID #### [facility] [address] [place] [address] Dr. Gianni Deluna PROF 14(COMP METB)on 022 Albumin [Mass/Vol] 2.9 g/dL Critically low 3.4-5.0 [facility] Comment on above: Performed By: #### T SH, T7, URIC, CMP, LIPID #### [facility] [address] [place] [address] Dr. Gianni Deluna Albumin/Globulin [Mass ratio] 0.8 {ratio} Normal [facility] Comment on above: Performed By: #### T SH, T7, URIC, CMP, LIPID #### [facility] [address] [address] [address] Gianni Deluna ALP [Catalytic activity/Vol] 127 U/L Critically high 46-116 [facility] Comment on above: Performed By: #### T SH, T7, URIC, CMP, LIPID #### [facility] [address] [address] [address] Gianni Deluna ALT [Catalytic activity/Vol] 23 U/L Normal 16-63 [facility] Comment on above: Performed By: #### T SH, T7, URIC, CMP, LIPID #### [facility] [address] [place] [address] Dr. Gianni Deluna Anion gap [Moles/Vol] 8.4 mmol/L Normal [facility] Comment on above: Performed By: #### T SH, T7, URIC, CMP, LIPID #### [facility] [address] [place] [address] Dr. Gianni Deluna AST [Catalytic activity/Vol] 21 U/L Normal 15-37 [facility] Comment on above: Performed By: #### T SH, T7, URIC, CMP, LIPID #### [facility] [address] [address] [address] Ginani Deluna Bilirubin [Mass/Vol] 0.5 mg/dL Normal 0.2-1.0 [facility] Comment on above: Performed By: #### T SH, T7, URIC, CMP, LIPID #### [facility] [address] [address] [address] Gianni Deluna Calcium [Mass/Vol] 8.3 mg/dL Critically low 8.5-10.1 [facility] Comment on above: Performed By: #### T SH, T7, URIC, CMP, LIPID #### [facility] [address] [place] [address] Dr. Gianni Deluna Chloride [Moles/Vol] 107 mmol/L Normal 98-107 [facility] Comment on above: Performed By: #### T SH, T7, URIC, CMP, LIPID #### [facility] [address] [address] [address] Gianni Deluna CO2 [Moles/Vol] 30.6 mmol/L Normal 21.0-32.0 [facility] Comment on above: Performed By: #### T SH, T7, URIC, CMP, LIPID #### [facility] [address] [address] [address] Gianni Deluna Creatinine [Mass/Vol] 0.93 mg/dL Normal 0.70-1.30 [facility] Comment on above: Performed By: #### T SH, T7, URIC, CMP, LIPID #### [facility] [address] [address] [address] Gianni Deluna EGFR-AF BELIZEAN >60 Normal >=60 [facility] Comment on above: Performed By: #### T SH, T7, URIC, CMP, LIPID #### [facility] [address] [address] [address] Gianni Deluna EGFR-NON AF BELIZEAN >60 Normal >=60 [facility] Comment on above: Performed By: #### T SH, T7, URIC, CMP, LIPID #### [facility] [address] [place] [address] Dr. Gianni Deluna Globulin (S) [Mass/Vol] 3.5 g/dL Normal [facility] Comment on above: Performed By: #### T SH, T7, URIC, CMP, LIPID #### [facility] [address] [place] [address] Dr. Gianni Deluna Glucose [Mass/Vol] 114 mg/dL Critically high 74-106 [facility] Comment on above: Performed By: #### T SH, T7, URIC, CMP, LIPID #### [facility] [address] [place] [address] Dr. Gianni Deluna Potassium [Moles/Vol] 4.0 mmol/L Normal 3.5-5.1 [facility] Comment on above: Performed By: #### T SH, T7, URIC, CMP, LIPID #### [facility] [address] [place] [address] Dr. Gianni Deluna Protein [Mass/Vol] 6.4 g/dL Normal 6.4-8.2 [facility] Comment on above: Performed By: #### T SH, T7, URIC, CMP, LIPID #### [facility] [address] [place] [address] Dr. Gianni Deluna Sodium [Moles/Vol] 142 mmol/L Normal 136-145 [facility] Comment on above: Performed By: #### T SH, T7, URIC, CMP, LIPID #### [facility] [address] [place] [address] Dr. Gianni Deluna Urea nitrogen [Mass/Vol] 11.0 mg/dL Normal 7.0-18.0 [facility] Comment on above: Performed By: #### T SH, T7, URIC, CMP, LIPID #### [facility] [address] [place] [address] Dr. Gianni Deluna Urea nitrogen/Creatinine [Mass ratio] 11.8 mg/mg Normal [facility] Comment on above: Performed By: #### T SH, T7, URIC, CMP, LIPID #### [facility] [address] [place] [address] Dr. Gianni Deluna TSHon 06-03-2022 TSH 0.814 uIU/mL Normal 0.358-3.740 [facility] Comment on above: Performed By: #### L ACT #### [facility] [address] [place] [address] Dr. Gianni Deluna URIC ACID SERUMon 06-03-2022 Urate [Mass/Vol] 5.2 mg/dL Normal 3.5-7.2 [facility] Comment on above: Performed By: #### T SH, T7, URIC, CMP, LIPID #### [facility] [address] [place] [address] Dr. Gianni Deluna CARDIAC ALEX 3-6on 2 CK [Catalytic activity/Vol] 82 U/L Normal 39-308 [facility] Comment on above: Performed By: #### L ACT #### [facility] [address] [place] [address] Dr. Gianni Deluna CK.MB [Mass/Vol] 2.40 ng/mL Normal <=3.60 [facility] Comment on above: Performed By: #### L ACT #### [facility] [address] [place] [address] Dr. Gianni Deluna HSTROP 8.6 pg/mL Normal 4.0-76.1 [facility] Comment on above: Result Comment: CUT- OFF POINTS HAVE BEEN ESTABLISHED BASED ON THE FOURTH UNIVERSAL DEFINITIONS OF MYOCARDIAL INFARCTION. THE UPPER REFERENCE LIMIT (URL) OF TROPONIN, DEFINED THE 99TH PERCENTILE OF cTnI DISTRIBUTION IN A REFERENCE POPULATION, HAS BEEN CONFIRMED THE DECISION THRESHOLD FOR [place] DIAGNOSIS. Performed By: #### L ACT #### [facility] [address] [place] [address] ABD/PELV W CONon 04-21-20 CT ABD/PELV W CON EXAMINATION: CT ABD/PELV W CON HISTORY: NAUSEA WITH VOMITING, UNSPECIFIED COMPARISON: 11/26/2015 TECHNIQUE: CT of the abdomen and pelvis with intravenous contrast Dose reduction techniques were achieved by using automated exposure control and/or adjustment of mA and/or kV according to patient size and/or use of iterative reconstruction technique. FINDINGS: TUBES AND IMPLANTS: None LOWER CHEST: Unremarkable ABDOMEN and PELVIS ABDOMINAL WALL AND SOFT TISSUES: Small bilateral inguinal hernias. BONES: No suspicious lesions. Multilevel degenerative changes of the spine. ARTERIES: Mild aortoiliac calcifications without aneurysm VEINS: Unremarkable. LYMPH NODES: Unremarkable. PERITONEUM/ RETROPERITONEUM: Unremarkable. BOWEL: Extensive sigmoid diverticula without surrounding inflammatory changes. There is sigmoid wall thickening. APPENDIX: Not identified. LIVER: Unremarkable. GALLBLADDER: Unremarkable. BILE DUCTS: Not dilated SPLEEN: Unremarkable. PANCREAS: Unremarkable. ADRENALS: Unremarkable. KIDNEYS/ URETERS: Unremarkable. REPRODUCTIVE ORGANS: A prostatic calcification. No prostatomegaly. URINARY BLADDER: Unremarkable. IMPRESSION: 1. Extensive sigmoid diverticula without stranding inflammatory changes. There is sigmoid wall thickening. Sigmoid colitis or acute diverticulitis in the right clinical setting. 2. Small bilateral fat-containing inguinal hernias. Electronically authenticated by: JAIMIE COOPER Date: 2022-04-21 00:38 Normal [facility] LACTATE/LACTIC ACIDon 2021 Lactate [Moles/Vol] 2.2 mmol/L Critically high 0.4-1.9 [facility] Comment on above: Performed By: #### L ACT #### [facility] [address] [address] [address] Gianni Deluna AMYLASEon 04-20-2022 Amylase [Catalytic activity/Vol] 139 U/L Critically high 25-115 [facility] Comment on above: Performed By: #### L ACT #### [facility] [address] [address] [address] Gianni Deluna CARDIAC ALEX ADMITon 022 CK [Catalytic activity/Vol] 88 U/L Normal 39-308 [facility] Comment on above: Performed By: #### C MADM #### [facility] [address] [address] [address] Gianni Deluna CK.MB [Mass/Vol] 1.82 ng/mL Normal <=3.60 [facility] Comment on above: Performed By: #### C MADM #### [facility] [address] [address] [address] Gianni Deluna HSTROP 7.2 pg/mL Normal 4.0-76.1 [facility] Comment on above: Result Comment: CUT- OFF POINTS HAVE BEEN ESTABLISHED BASED ON THE FOURTH UNIVERSAL DEFINITIONS OF MYOCARDIAL INFARCTION. THE UPPER REFERENCE LIMIT (URL) OF TROPONIN, DEFINED THE 99TH PERCENTILE OF cTnI DISTRIBUTION IN A REFERENCE POPULATION, HAS BEEN CONFIRMED THE DECISION THRESHOLD FOR NH DIAGNOSIS. Performed By: #### C MADM #### [facility] [address] [place] [address] Dr. Gianni Deluna FILIBERTO 93 ng/mL Normal 16-96 [facility] Comment on above: Performed By: #### C MADM #### [facility] [address] [place] [address] Dr. Gianni Deluna CBC AUTO DIFFon 04-20-2022 BASO # 0.0 103/ul Normal 0.0-0.1 [facility] Comment on above: Performed By: #### C BC #### [facility] [address] [place] [address] Dr. Gianni Deluna Basophils/100 WBC (Bld) 0.3 % Normal 0.2-2.0 [facility] Comment on above: Performed By: #### C BC #### [facility] [address] [place] [address] Dr. Gianni Deluna EO # 0.0 103/ul Normal 0.0-0.7 [facility] Comment on above: Performed By: #### C BC #### [facility] [address] [place] [address] Dr. Gianni Deluna Eosinophils/100 WBC (Bld) 0.1 % Critically low 0.9-7.0 [facility] Comment on above: Performed By: #### C BC #### [facility] [address] [place] [address] Dr. Gianni Deluna Erythrocyte distribution width (RBC) [Ratio] 13.5 % Normal 11.0-15.0 [facility] Comment on above: Performed By: #### C BC #### [facility] [address] [place] [address] Dr. Gianni Deluna Hematocrit (Bld) [Volume fraction] 45.8 % Normal 42.0-54.0 [facility] Comment on above: Performed By: #### C BC #### [facility] [address] [address] [address] Gianni Deluna Hemoglobin (Bld) [Mass/Vol] 15.3 g/dL Normal 14.0-18.0 [facility] Comment on above: Performed By: #### C BC #### [facility] [address] [address] [address] Gianni Deluna IG # 0.05 10e3/ul Critically high 0.00-0.03 [facility] Comment on above: Performed By: #### C BC #### [facility] [address] [place] [address] Dr. Gianni Deluna IG % 0.5 % Normal 0.0-0.5 [facility] Comment on above: Performed By: #### C BC #### [facility] [address] [address] [address] Gianni Deluna LYMPH # 0.8 103/ul Critically low 1.2-3.8 [facility] Comment on above: Performed By: #### C BC #### [facility] [address] [place] [address] Dr. Gianni Deluna Lymphocytes/100 WBC (Bld) 7.7 % Critically low 20.5-60.0 [facility] Comment on above: Performed By: #### C BC #### [facility] [address] [address] [address] Gianni Deluna MANUAL DIFF REQ NO Normal [facility] Comment on above: Performed By: #### C BC #### [facility] [address] [address] [address] Gianni Deluna MCH (RBC) [Entitic mass] 30.4 pg Normal 25.9-34.0 [facility] Comment on above: Performed By: #### C BC #### [facility] [address] [place] [address] Dr. Gianni Deluna MCHC (RBC) [Mass/Vol] 33.4 g/dL Normal 29.9-35.2 [facility] Comment on above: Performed By: #### C BC #### [facility] [address] [place] [address] Dr. Gianni Deluna MCV (RBC) [Entitic vol] 90.9 fL Normal 80.0-94.0 [facility] Comment on above: Performed By: #### C BC #### [facility] [address] [place] [address] Dr. Gianni Deluna MONO # 0.4 103/ul Normal 0.3-0.8 [facility] Comment on above: Performed By: #### C BC #### [facility] [address] [place] [address] Dr. Gianni Deluna Monocytes/100 WBC (Bld) 3.3 % Normal 1.7-12.0 [facility] Comment on above: Performed By: #### C BC #### [facility] [address] [place] [address] Dr. Gianni Deluna NEUT # 9.7 103/ul Critically high 1.4-6.5 [facility] Comment on above: Performed By: #### C BC #### [facility] [address] [place] [address] Dr. Gianni Deluna Neutrophils/100 WBC (Bld) 88.1 % Critically high 43.0-75.0 [facility] Comment on above: Performed By: #### C BC #### [facility] [address] [place] [address] Dr. Gianni Deluna Platelet mean volume (Bld) [Entitic vol] 8.9 fL Critically low 9.5-13.5 [facility] Comment on above: Performed By: #### C BC #### [facility] [address] [place] [address] Dr. Gianni Deluna PLT 198 103/ul Normal 150-450 [facility] Comment on above: Performed By: #### C BC #### [facility] [address] [place] [address] Dr. Gianni Deluna RBC 5.04 106/ul Normal 4.70-6.10 [facility] Comment on above: Performed By: #### C BC #### [facility] [address] [address] [address] Gianni Deluna WBC 11.0 103/ul Normal 4.0-11.0 [facility] Comment on above: Performed By: #### C BC #### [facility] [address] [place] [address] Dr. Gianni Deluna Covid-19 PCR ([facility])on SARS-CoV-2 (COVID-19) RNA NICHOLE+probe Ql (Unsp spec) Not detected Normal NOT DETECTED [facility] Comment on above: Result Comment: When diagnostic testing is negative, the possibility of a false negative should be considered in the context of a patient's recent exposures and the presence of clinical signs and symptoms consistent with SARS-CoV-2. This test is not yet approved or cleared by the [place] FDA. When there are no FDA-approved or cleared tests available, and other criteria are met, FDA can make tests available under an emergency access mechanism called an Emergency Use Authorization (EUA). The EUA for this test is supported by the [employer] of Health and Human Service's declaration that circumstances exist to justify the emergency use of in vitro diagnostics for the detection and/or diagnosis of the virus that causes COVID-19. This EUA will remain in effect for the duration of the COVID-19 declaration justifying emergency of IVDs, unless it is terminated or revoked by the FDA (after which the test may no longer be used). Performed By: #### C VDTBH #### [facility] [address] [place] [address] Dr. Gianni Deluna D-DIMERon 04-20-2022 D-DIMER 0.37 mg/L FEU Normal <=0.59 [facility] Comment on above: Performed By: #### D DIM #### [facility] [address] [place] [address] Dr. Gianni Deluna D-DIMER COMMENTS SEE BELOW Normal [facility] Comment on above: Result Comment: Incr eases in D-Dimer concentration observed with thromboembolic events can be variable due to localization, size, and age of the thrombus. Therefore, a thromboembolic event cannot be diagnosed with certainty on the basis of the reference range. D-Dimers may also be elevated for a variety of disorders including: advanced age, , coronary disease, cancer, liver disease, infection, inflammation, hematoma, DIC, trauma, post-surgery, diabetes, thrombolytic or anticoagulant therapy, stress, and generalized hospitalization. Performed By: #### D DIM #### [facility] [address] [place] [address] Dr. Gianni Deluna LACTATE/LACTIC ACIDon 2021 Lactate [Moles/Vol] 2.3 mmol/L Critically high 0.4-1.9 [facility] Comment on above: Performed By: #### L ACT #### [facility] [address] [place] [address] Dr. Gianni Deluna LIPASEon 04-20-2022 Lipase [Catalytic activity/Vol] 48.0 U/L Critically low 73.0-393.0 [facility] Comment on above: Performed By: #### L ACT #### [facility] [address] [place] [address] Dr. Gianni Deluna PROF 14(COMP METB)on 022 Albumin [Mass/Vol] 3.9 g/dL Normal 3.4-5.0 [facility] Comment on above: Performed By: #### L ACT #### [facility] [address] [place] [address] Dr. Gianni Deluna Albumin/Globulin [Mass ratio] 1.0 {ratio} Normal [facility] Comment on above: Performed By: #### L ACT #### [facility] [address] [place] [address] Dr. Gianni Deluna ALP [Catalytic activity/Vol] 127 U/L Critically high 46-116 [facility] Comment on above: Performed By: #### L ACT #### [facility] [address] [place] [address] Dr. Gianni Deluna ALT [Catalytic activity/Vol] 27 U/L Normal 16-63 [facility] Comment on above: Performed By: #### L ACT #### [facility] [address] [place] [address] Dr. Gianni Deluna Anion gap [Moles/Vol] 15.9 mmol/L Normal [facility] Comment on above: Performed By: #### L ACT #### [facility] [address] [address] [address] Gianni Deluna AST [Catalytic activity/Vol] 27 U/L Normal 15-37 [facility] Comment on above: Performed By: #### L ACT #### [facility] [address] [address] [address] Gianni Deluna Bilirubin [Mass/Vol] 0.9 mg/dL Normal 0.2-1.0 [facility] Comment on above: Performed By: #### L ACT #### [facility] [address] [address] [address] Gianni Deluna Calcium [Mass/Vol] 8.9 mg/dL Normal 8.5-10.1 [facility] Comment on above: Performed By: #### L ACT #### [facility] [address] [address] [address] Gianni Deluna Chloride [Moles/Vol] 103 mmol/L Normal 98-107 [facility] Comment on above: Performed By: #### L ACT #### [facility] [address] [address] [address] Gianni Deluna CO2 [Moles/Vol] 24.2 mmol/L Normal 21.0-32.0 [facility] Comment on above: Performed By: #### L ACT #### [facility] [address] [address] [address] Gianni Deluna Creatinine [Mass/Vol] 1.27 mg/dL Normal 0.70-1.30 [facility] Comment on above: Performed By: #### L ACT #### [facility] [address] [address] [address] Gianni Deluna EGFR-AF BELIZEAN >60 Normal >=60 [facility] Comment on above: Performed By: #### L ACT #### [facility] [address] [address] [address] Gianni Deluna EGFR-NON AF BELIZEAN 56 mL/min/1.73m2 Critically low >=60 [facility] Comment on above: Performed By: #### L ACT #### [facility] [address] [place] [address] Dr. Gianni Deluna Globulin (S) [Mass/Vol] 3.9 g/dL Normal [facility] [facility] Comment on above: Performed By: #### L ACT #### [facility] [address] [address] [address] Gianni Deluna Glucose [Mass/Vol] 145 mg/dL Critically high 74-106 [facility] Comment on above: Performed By: #### L ACT #### [facility] [address] [place] [address] Dr. Gianni Deluna Potassium [Moles/Vol] 4.1 mmol/L Normal 3.5-5.1 [facility] Comment on above: Performed By: #### L ACT #### [facility] [address] [place] [address] Dr. Gianni Deluna Protein [Mass/Vol] 7.8 g/dL Normal 6.4-8.2 [facility] Comment on above: Performed By: #### L ACT #### [facility] [address] [place] [address] Dr. Gianni Deluna Sodium [Moles/Vol] 139 mmol/L Normal 136-145 [facility] Comment on above: Performed By: #### L ACT #### [facility] [address] [place] [address] Dr. Gianni Deluna Urea nitrogen [Mass/Vol] 22.0 mg/dL Critically high 7.0-18.0 [facility] Comment on above: Performed By: #### L ACT #### [facility] [address] [place] [address] Dr. Gianni Deluna Urea nitrogen/Creatinine [Mass ratio] 17.3 mg/mg Normal [facility] Comment on above: Performed By: #### L ACT #### [facility] [address] [place] [address] Dr. Gianni Deluna XR ABD FLAT UP_PA Graciela 04-20 XR ABD FLAT UP_PA CH XR ABD FLAT UP_PA C H 04/20/2022 8:53 PM EDT CLINICAL INDICATION: Nausea with vomiting COMPARISON: 01/31/2020 TECHNIQUE: Upright and supine AP views of the chest, abdomen and pelvis. FINDINGS: Spinal cervical hardware is noted. The cardiomediastinal silhouette and pulmonary vasculature are within normal limits. No focal opacity concerning for consolidation. No pneumothorax or pleural effusion. No definite free intraperitoneal air, portal venous gas or pneumatosis intestinalis. Nondilated small and large bowel loops are seen. There are nonspecific air-fluid levels seen within the large and small bowel. No suspicious calcifications. The bones demonstrate degenerative changes. The soft tissues are unremarkable. IMPRESSION: No acute cardiopulmonary abnormality. Nonspecific bowel gas pattern with air-fluid levels seen within nondilated the large and small bowel. Electronically authenticated by: JAIMIE COOPER Date: 2022-04-20 21:58 Normal [facility] US RICHELLE DOP LEG LTon 03-18-20 US RICHELLE DOP LEG LT Ultrasound venous duplex scan left lower extremity CLINICAL: Left leg pain and swelling, lump at left ankle/foot. TECHNIQUE: Lowery-scale, color Doppler and Duplex examination of the left lower extremity was performed with and without provocative maneuvers. FINDINGS: Comparison: None. Sonographic examination of the left lower extremity deep venous system to include the common femoral, superficial femoral and popliteal veins, demonstrates normal compressibility, color-flow, respiratory variation, and augmentation. The origin of the greater saphenous vein demonstrates normal compression, and there is normal color-flow in the proximal profunda femoral vein. There is normal compression of the posterior tibial, anterior tibial, and peroneal veins. Normal compression of the small saphenous veins. The superficial branch of the greater saphenous vein at the anterior ankle demonstrates lack of compression compatible with superficial thrombus. The remainder of the greater saphenous vein is patent. IMPRESSION: 1. No deep venous thrombosis in the left lower extremity. 1. Focal superficial thrombophlebitis of a branch of the greater saphenous vein at the anterior left ankle. Electronically authenticated by: LAWANDA VEE Date: 2022-03-18 13:25 Normal [facility] US RICHELLE DOP LEG LTon 12-08-19 US RICHELLE DOP LEG LT EXAM: US RICHELLE DOP LEG LT HISTORY: Left leg pain and edema. Lump adjacent ankle. COMPARISON: None. TECHNIQUE: Real-time grayscale, color flow and duplex sonographic imaging was performed to the left lower extremity venous system FINDINGS: Thrombus is visualized within the greater saphenous vein adjacent to the ankle within the region of patient's pain. The visualized deep left lower extremity venous system exhibits normal flow, phasicity, augmentation, compressibility and waveforms IMPRESSION: Greater saphenous vein thrombus. No visualized deep venous thrombus Electronically authenticated by: ANTONI JOLLEY Date: 2021-12-06 22:57 Normal [facility] Encounters Encounter Date Encounter Type Care Provider Facility Start: 07-17-2023 ambulatory Evens Archer MD Facility:[facility] Start: 07-08-2023 End: 07-08-2023 ambulatory [facility] Start: 06-29-2023 End: 06-29-2023 ambulatory [facility] Start: 06-29-2023 End: 06-29-2023 Encounter for other preprocedural examination [facility] Start: 06-17-2023 Encounter for other preprocedural examination [facility] Start: 05-20-2023 End: 05-20-2023 ambulatory [facility] Start: 05-13-2023 End: 05-14-2023 ambulatory Pramod HAYWARD Facility:[facility] [place] Start: 05-08-2023 ambulatory Pramod HAYWARD Facility:[facility] Start: 04-29-2023 ambulatory Pramod HAYWARD Facility:[facility] Start: 11-13-2022 End: 11-14-[address] EVENS ARCHER . Facility:[facility] Start: 11-11-2022 End: 11-12-[address] EVENS ARCHER . Facility:[facility] Start: 08-13-2022 End: 08-14-[address] EVENS ARCHER . Facility:[facility] Start: 08-04-[address] EVENS ARCHER . Facili ty:[facility] Start: 06-03-2022 End: 06-04-[address] EVENS ARCHER . Facility:[facility] Start: 04-20-2022 End: 04-21-[address] EVENS ARCHER . Facility:[facility] Start: 03-18-2022 End: 03-19-[address] EVENS ARCHER . Facility:[facility] Start: 12-06-2021 End: 12-07-[address] EVENS ARCHER . Facility: Procedures Date Procedure Procedure Detail Performing Clinician Start: 06-03-[address] FRANCO ARCHER . Comment on above: Performed By: #### P [facility] #### [facility] [address] [place] [address] Dr. Gianni Deluna Payers Date Payer Category Payer Unknown [id number] 1960 Self-pay [id number] 1960 Unknown [id number] 1955 Unknown [id number] 2.16.84 [id number] 1954 Unknown [id number] 2.16.84 [id number] 1954 Unknown [id number] 2.16.84 [id number] 1954 Unknown [id number] 2.16.84 [id number] 1954 Unknown [id number] 2.16.84 [id number] 1954 Unknown [id number] 2.16.84 [id number] 1954 Unknown [id number] 2.16.84 [id number] 1954 Unknown [id number] 2.16.84 [id number] 1954 Unknown [id number] 2.16.8 [id number] 1954 Unknown [id number] 2.16.8 [id number] 1954 Unknown [id number] 2.16.8 [id number] Progress note 07-08-2023 Note Date & Type Note Facility 07-08-2023 Note Cardiovascular Medic [facility] SUBJECTIVE Chief Complaint Patient presents with Edema Donnie Denton is a 68 y.o. male here for a sick visit. HPI PMHx: CAD, HTN, HLD He has had bilateral leg/ankle swelling since his cardiac cath on 06/29/2023. His weight is up 6lbs since we saw him last month. He was started on celebrex in the past and he developed leg swelling at that time, he stopped taking the medication and his swelling improved. He denies CP, dyspnea, orthopnea, PND, palpitations, syncope. Patient Active Problem List Diagnosis BMI 22.0-22.9, adult Coronary arteriosclerosis Cervical radiculopathy Chest pain Diverticulitis Dyshidrotic eczema Dyspnea and respiratory abnormalities Gout Hearing loss History of nephrolithiasis Hyperlipidemia Hypertension Insomnia Reducible right inguinal hernia Sialolithiasis Superficial thrombosis of leg Shortness of breath Preoperative clearance Pre-op evaluation Past Medical History: Diagnosis Date Coronary artery disease Hyperlipidemia Hypertension Family History Problem Relation Name Age of Onset Heart attack Paternal Grandfather Social History Tobacco Use Smoking status: Never Smokeless tobacco: Never Substance Use Topics Alcohol use: Not Currently Allergies Allergen Reactions Hydrocodone Unknown Nabumetone Other and Unknown Penicillins Other and Unknown Amlodipine GI intolerance LE swelling Review of Systems Constitutional: Negative for chills, decreased appetite, fever, malaise/fatigue and weight gain. Cardiovascular: Positive for leg swelling. Negative for chest pain, dyspnea on exertion, irregular heartbeat, near-syncope, orthopnea, palpitations, paroxysmal nocturnal dyspnea and syncope. Hematologic/Lymphatic: Negative for bleeding problem. Does not bruise/bleed easily. OBJECTIVE Visit Vitals BP 140/68 (BP Location: Left arm, Patient Position: Sitting) Pulse 50 Ht 1.727 m (5' 8 ) Wt 66.2 kg (146 lb) SpO2 98% BMI 22.20 kg/m??? Smoking Status Never BSA 1.78 m??? Medications: Current Outpatient Medications: aspirin 325 mg tablet, Take 325 mg by mouth in the morning., Disp: , Rfl: atorvastatin (Lipitor) 40 mg tablet, Take 40 mg by mouth at bedtime., Disp: , Rfl: carvedilol (Coreg) 25 mg tablet, Take 1 tablet (25 mg) by mouth with breakfast and with evening meal., Disp: 180 tablet, Rfl: 3 lansoprazole (Prevacid) [address] capsule, Take 15 mg by mouth 2 times daily., Disp: , Rfl: levothyroxine (Synthroid) 50 mcg tablet, Take 50 mcg by mouth., Disp: , Rfl: nitroglycerin (Nitrostat) 0.4 mg SL tablet, as directed Sublingual, Disp: , Rfl: ranolazine (Ranexa) 500 mg 12 hr tablet, Take 500 mg by mouth 2 times daily., Disp: , Rfl: zolpidem (Ambien) 10 mg tablet, TAKE 1 TABLET BY MOUTH ONCE DAILY AT BEDTIME NEEDED FOR 90 DAYS, Disp: , Rfl: furosemide (Lasix) 20 mg tablet, Take 1 tablet (20 mg) by mouth if needed each day (PRN leg swelling)., Disp: 30 tablet, Rfl: 3 Physical Exam Constitutional: Appearance: Normal appearance. He is normal weight. HENT: Head: Normocephalic and atraumatic. Right Ear: External ear normal. Left Ear: External ear normal. Eyes: Extraocular Movements: Extraocular movements intact. Pupils: Pupils are equal, round, and reactive to light. Neck: Vascular: No carotid bruit. Cardiovascular: Rate and Rhythm: Normal rate and regular rhythm. Pulses: Normal pulses. Heart sounds: Normal heart sounds. Pulmonary: Effort: Pulmonary effort is normal. Breath sounds: Normal breath sounds. Abdominal: General: Bowel sounds are normal. Palpations: Abdomen is soft. Musculoskeletal: General: Normal range of motion. Cervical back: Neck supple. Right lower le+ Pitting Edema present. Left lower le+ Pitting Edema present. Comments: Ambulates with a walker Skin: General: Skin is warm and dry. Neurological: General: No focal deficit present. Mental Status: He is alert and oriented to person, place, and time. Psychiatric: Mood and Affect: Mood normal. Behavior: Behavior normal. Thought Content: Thought content normal. Judgment: Judgment normal. Labs: Admission on 06/29/2023, Discharged on 06/29/2023 Component Date Value Ref Range Status Ventricular Rate 06/29/2023 47 BPM Final Atrial Rate 06/29/2023 47 BPM Final MT Interval 06/29/2023 154 ms Final QRS DURATION 06/29/2023 82 ms Final QT Interval 06/29/2023 482 ms Final QTC CALCULATION(BAZETT) 06/29/2023 426 ms Final P [place] 06/29/2023 16 degrees Final R-[place] 06/29/2023 55 degrees Final T Wave [place] 06/29/2023 41 degrees Final No results found for: EXTCMP, BMPR1A, CBCDIF, BNP, BNP, LASAP, RED Testing/Procedures: No echocardiogram results found for the past 14 days No echocardiogram results found for the past 12 months Encounter Date: 06/29/23 ECG 12 lead Result Value Ventricular Rate 47 Atrial Rate 47 MT Interval 154 QR (more content not included)... [facility] Progress note 07-08-2023 Note Date & Type Note Facility 07-08-2023 Note Patient here c/o LE edema since heart cath on 06/29. He is scheduled for stress test but not scheduled for hernia surgery yet. Review of Systems Cardiovascular: Positive for chest pain (intermittent), dyspnea on exertion, leg swelling and palpitations ( once in a great while ). Respiratory: Positive for cough. Hematologic/Lymphatic: Bruises/bleeds easily. Musculoskeletal: Positive for arthritis, back pain, muscle weakness and myalgias. All other systems reviewed and are negative. [facility] Progress note 06-29-2023 Note Date & Type Note Facility 06-29-2023 Note Cardiovascular Labor atory Report FINAL IMPRESSIONS: Long segment, moderate to severe diffuse disease of the proximal to mid left anterior descending Moderate to severe distal disease of a codominant left circumflex Mild disease of the right coronary artery Normal global left ventricular systolic function by noninvasive imaging Normal right-sided filling pressures and pulmonary capillary wedge pressure Normal cardiac output/cardiac index RECOMMENDATIONS: Given the long segment of stenoses in the left anterior descending, and the need for preoperative risk assessment, will schedule the patient for a pharmacological stress test In the absence of a large area of severely diminished perfusion in the anterolateral wall or other high risk findings, he would be at acceptable risk to proceed with surgery Aggressive cardiovascular factor modification Optimal medical therapy for coronary disease should include aspirin, high intensity statin therapy, a beta-kami plus or minus a RAAS inhibitor Follow-up with Dr. Soto in the [place] office in the next 2 to 4 weeks PROCEDURES: Ultrasound-guided access to the right common femoral artery, limited femoral angiography, ultrasound-guided access to the right common femoral vein, right heart catheterization, bilateral selective coronary angiography, placement of a 6 [employer] customer account manager closure device METHODS: After risks, benefits, and alternatives were explained, written informed consent was obtained. The patient was prepped and draped in usual sterile fashion over both groins. Using 1% lidocaine solution, local infiltration anesthesia was achieved. Using a modified Seldinger technique, a micropuncture kit, and under ultrasound guidance, access to the right common femoral vein and artery was obtained. The micropuncture kit was upsized to a 6 [place] [employer] 11 cm sheath. Angiography via the sheath was performed. Right heart catheterization was performed using a Santos catheter via the venous sheath. Pressures were measured in the right atrium, right ventricle, pulmonary artery, and pulmonary capillary wedge positions. Oxygen saturations were obtained and cardiac output/cardiac index was calculated using the modified Natalie principle. The Santos catheter was removed. Bilateral selective coronary angiography was performed using JL4 and JR4 catheters. After reviewing the images, it was elected to conclude the procedure. All catheters were removed. A 5 [place] [employer] closure device was deployed per protocol to achieve hemostasis. The venous sheath was to be removed with application of manual pressure to achieve optimal hemostasis. Overall the patient tolerated the procedure well. There were no overt complications. He was to be transferred to the holding area in stable condition. FINDINGS: Hemodynamics: RA 6 RV 34/5, 9 PA 34/10 [18] PCWP 10 TPG 8 AO 130/72 [97] Cardiac output /cardiac index 6.46/3.61 AO sat /PA sat 93% / 70% LEFT VENTRICULOGRAPHY: This was not performed. Global left ventricular systolic function is normal with an ejection fraction of 65% by echocardiography. CORONARY ARTERIES: Left main coronary artery: This arises from the left coronary cusp, it bifurcates into the left anterior descending and left circumflex coronary arteries. It is free of significant stenoses. Left anterior descending coronary artery: This shows a long segment of stenoses from the proximal to midportion. Luminal narrowing of 50 to 70% is estimated visually. Quantitative coronary analysis suggests a 50% stenosis at worst. The remainder of the vessel shows luminal irregularities. It is a long wraparound left anterior descending. The diagonal branches show diffuse disease with caliber reduction and no discrete stenoses. Left circumflex coronary artery: This appears to be a codominant vessel giving rise to posterolateral branches. There appears to be severe disease distally just prior to the posterolateral branch. The main vessel shows luminal irregularities and no high-grade stenoses. A first obtuse marginal shows a 30 to 40% calcific stenosis proximally. It is a small caliber but branching vessel. Right coronary artery: This arises from the right coronary cusp, it appears to be a codominant vessel giving rise to the posterior descending artery. There is a proximal to mid vessel 30 to 40% stenosis. The vessel is of small caliber. There appears to be right to left collaterals supplying the distal circumflex. Limited femoral angiography: Shows an appropriate sheath position. Anatomy suitable for closure device. INDICATIONS: Preoperative evaluation, coronary artery disease. [facility] Progress note 05-20-2023 Note Date & Type Note Facility 05-20-2023 Note [facility] Cardiology Clinic Note Chief Complaint: New patient here to establish care. Ref from Dr. Archer for surgery clearance. He has hx of CAD and previously followed with [facility] back in 2014. He has upcoming hernia surgery with Dr. Hayward, which is not scheduled yet. C/o intermittent chest pain and SOB w/ exertion. HPI: Mr. Denton is a 68-year-old man with history of hypertension, dyslipidemia and coronary artery disease He had an episode of severe exertional chest pain in 2014; he subsequently underwent a stress test that was abnormal. Cardiac catheterization revealed moderate to severe two-vessel disease. At that time, the length and extent of the left anterior descending stenosis was felt to be too long for percutaneous revascularization. He was [place] [facility] [place]. It was elected to continue medical management. Since then, he has had episodic, exertional chest pain classic for angina. This is associated with shortness of breath. It typically occurs with exertion and improves or resolves with rest. Over the past month, he states that he had at least 5 or 6 episodes. He denies orthopnea, paroxysmal, dyspnea, or lower extremity edema. Past medical history: Coronary artery disease, chest pain, dyspnea, cervicalgia, hypertension, Past surgical history: Cardiac cath 10/31/2014, appendicectomy, laminectomy cervical, tonsillectomy Social history: Never smoked heavily Cardiology ROS: Review of Systems Cardiovascular: Positive for chest pain (intermittent), dyspnea on exertion and palpitations ( once in a great while ). Respiratory: Positive for cough and sputum production. Hematologic/Lymphatic: Bruises/bleeds easily. All other systems reviewed and are negative. Past Medical History He has no past medical history on file. Surgical History He has no past surgical history on file. Social History He has no history on file for tobacco use, alcohol use, and drug use. Family History No family history on file. Allergies Patient has no allergy information on record. Medications No current outpatient medications on file. Last Recorded Vitals BP 178/80 (BP Location: Right arm, Patient Position: Sitting) Pulse 54 Ht 1.486 m (4' 10.5 ) Wt 63.5 kg (140 lb) SpO2 96% BMI 28.76 kg/m??? Physical Examination: GENERAL: alert and oriented x3, well developed, in no acute distress. HEAD: atraumatic, normocephalic. EYES: DOMINGO, EOMI. NECK: trachea midline, no JVD present, no carotid bruits present. CARDIAC: S1, S2 present. RRR. No murmur, rubs, or gallops. RESPIRATORY: CTAB, no increased effort of breathing, no rales, rhonchi, or wheezing. ABDOMEN: soft, nontender, nondistended. EXTREMITIES: no lower extremity edema, peripheral pulses are 2+ bilaterally. No rash/skin discoloration present. NEURO: strength/sensation equal and symmetric in bilateral upper and lower extremities. PSYCH: appropriate mood, affect, and judgement. Investigations: A nuclear stress test which showed apical anterior and apical inferior perfusion defect with a calculated EF 68% TTE showed an EF of 60% with mild TR/MR. Catheterization showing a very along segment of high-grade stenoses (average 70%) involving the proximal to mid LAD with the highest grade stenosis of approximately 90%. The total length is approximate 40-50 mm in length according to my estimation. The distal LAD apical segment becomes small and diffusely diseased with approximately serial 85% stenoses. There is a small to medium size diagonal 1 vessel that has approximately a 70% stenosis in the proximal section. This is associated with a long area of stenoses. The right coronary artery had approximately 55% proximal stenosis. There was a moderate increase in the left ventricular end-diastolic pressure of 25 mmHg. Ejection fraction was estimated at 60% per ventriculogram. The distal LAD is diffusely diseased and wraps aroundthe apex, however the distal 2/3 of the LAD is large and a reasonable target. Was seen at [facility]; single-vessel coronary artery disease with a preserved ejection fraction. Diffuse, multiple segments of his left anterior descending. The RCA has moderate, nonobstructive disease. Preserved ejection fraction and responded well to medications. He has been started on aggressive secondary pharmacotherapy. We had a long discussion about treatment options at the time of his heart catheterization.. We started Ranexa as well as continued his beta kami, statin, aspirin and amlodipine and he has tolerated this well with only periodic chest pain symptoms that only last a few seconds. He does complain of some fatigue however this is improved since we started pharmacotherapy management. I did have Dr. Londono in cardiothoracic surgery review the films and he would be a candidate for at least a single vessel FLOR to Mid LAD. This wo (more content not included)... [facility] Clinical Note 05-13-2023 Note Date & Type Note Facility 05-13-2023 Note Chief Complaint consultation for bilateral inguinal hernias HPI Staff 68 year old male presents on consultation from Dr. Archer for bilateral inguinal hernias. Reports he noted bilateral bulges several years ago. Both wax and wane in size. He does not try to reduce these but states bulges become smaller when lying down. Reports burning pain intermittently, especially in the evening after excessive walking. Denies nausea, vomiting or bowel changes. History of Present Illness 68 yo male with h/o CAD, htn, hyperlipidemia, cervical and lumbar radiculopathy, nephrolithiasis, referred for possible bilateral inguinal hernias; patient reports several year h/o slight inguinal bulges, right > left; increased in size over last several months, occasional soreness after standing; mainly right; no skin changes, no N/V; no bowel changes; bulge reduces spontaneously; abd operations significant for appendectomy; on baby asa daily, no NSAIDs; h/o CAD, last cath 2014, blockage, but too long for stent; treated medically; no Cardiology reevaluation. Review of Systems PHQ Score Initial Depression Screen Score: 0 ROS - Provider Constitutional: no fever, no sweats, no weight loss. Eyes: no glasses, no blurred vision, no visual loss. ENMT: no dentures, no hoarseness, no swallowing difficulties, no hearing loss, no ear infection(s), no nose bleeds. Cardiovascular: normal blood pressure, no chest pain, regular heartbeat, no heart murmur. Respiratory: no shortness of breath, no cough, no asthma, no wheezing. Gastrointestinal: no nausea, no vomiting, no diarrhea, no constipation, no blood in stool, no change in bowel habits, mild abdominal pain, no hepatitis. Genitourinary: no kidney stones, no urine infection, no dysuria. Musculoskeletal: no pain, no weakness. Skin: no changing moles, no rash, no skin lumps. Neurologic: no seizures, no epilepsy, no headache. Psychiatric: no emotional or psychiatric problem. Heme/Lymph: no bleeding problems, no anemia, no blood clots, no transfusions. Allergy/Immunologic: no swollen lymph nodes/glands, no IV drug abuse. Other: Additional ROS info: Except as noted in the above Review of Systems and in the History of Present Illness, all other systems have been reviewed and are negative or noncontributory. Physical Exam Vitals & Measurements HR: 68(Peripheral) RR: 16 BP: 118/70 HT: 67 in HT: 170 cm WT: 63.8 kg WT: 140.36 lb BMI: 22.08 HEENT: normal conjunctiva, sclera clear, no scleral icterus, EOM intact, PERRLA, oral mucosa moist without lesions. Neck: trachea midline, no mass, symmetric, no thyromegaly or nodules, no adenopathy Respiratory: lungs CTA, respirations non labored. Cardiovascular: regular rate and rhythm, no murmur, no pedal edema or varicosities. Gastrointestinal: soft, non distended, no tenderness, no masses, small reducible right inguinal hernia, no skin changes, mild weakness left inguinal area; diastasis recti no, no hepatosplenomegaly; normal bs Lymphatic: no cervical adenopathy, nosupraclavicular adenopathy, no inguinal adenopathy. Musculoskeletal: normal gait, digits and nails without infection, nodes, cyanosis, clubbing. Skin: no rashes, no lesions, no ulcers, no subcutaneous nodules, induration. Psychiatric/Neuro: oriented to time, place, person, judgement normal, affect appropriate for age, insight intact, no focal deficits. Tests: x-rays reviewed, review of old records completed , Discussed surgical options, risks, and possible complications with patient. Assessment/Plan 1. Reducible right inguinal hernia (K40.90: Unilateral inguinal hernia, without obstruction or gangrene, not specified as recurrent) discussed operative repair in detail, informed consent obtained; patient wishes to wait until winter; also patient is to obtain Cardiology referral for reevaluation prior to surgical intervention; he is to call sooner if problems/questions; signs/symptoms of incarceration/strangulation of hernia explained in detail, and patient understands that he should seek prompt medical evaluation if they were to occur. Follow-up No qualifying data available Problem List/Past Medical History Ongoing BMI 22.0-22.9, adult Cervical radiculopathy Cervical spondylosis Coronary arteriosclerosis Diverticulitis Dyshidrotic eczema Gout Hearing loss History of nephrolithiasis HTN (hypertension) Hyperlipidemia Insomnia Lumbar radiculopathy Reducible right inguinal hernia Sialolithiasis Superficial thrombosis of leg Historical Amputation finger-complicated Cervicalgia Chest pain Conjunctivitis Diverticulitis of colon Dyspnea Foot pain Gastroenteritis Hematuria HTN (hypertension) Inguinal hernia Sialolithiasis Sinusitis Spondylosis of cervical spine Ureteral calculus Procedure/Surgical History Amputation of phalanx of finger, Appendectomy, Cardiac catheterization, Laminectomy approach to cervical spine, Tonsillectomy. Medications Ambien 10 mg Tab (more content not included)... [facility] Comment on above: Result Comment: Elec tronically Signed By: LYNNETTE MUÑOZ, Pramod Anderson\Date and Time Signed: 05/13/23 17:12 EDT Summary Purpose Family History No Family History Records FoundNo Family History Records FoundNo Family History Records FoundNo Family History Records Found Advance Directives No Advanced Directives Records FoundNo Advanced Directives Records FoundNo Advanced Directives Records FoundNo Advanced Directives Records Found Additional Source Comments (unrecognized sect ion and content) No Status Records FoundNo Status Records FoundNo Status Records FoundNo Status Records Found INFORMATION SOURCE (unrecogn ized section and content) DATE CREATED AUTHOR 11/21/2022 [facility] DATE CREATED AUTHOR AUTHOR'S ORGANIZ ATION 05/21/2023 [facility] DATE CREATED AUTHOR AUTHOR'S ORGANIZ ATION 07/10/2023 [facility] DATE CREATED AUTHOR AUTHOR'S ORGANIZ ATION 07/20/2023 [facility] FOR RECORDS PERTAINING TO PATIENTS WHO ARE OR HAVE BEEN ENROLLED IN A CHEMICAL DEPENDENCY/SUBSTANCEABUSE PROGRAM, SOME INFORMATION MAY BE OMITTED. This clinical summary was aggregated from multiple sources. Caution should be exercised in using it in the provision of clinical care. This summary normalizes information from multiple sources, and as a consequence, information in this document may materially change the coding, format and clinical context of patient data. In addition, data may be omitted in some cases. CLINICAL DECISIONS SHOULD BE BASED ON THE PRIMARY CLINICAL RECORDS. [facility] [employer] provides no warranty or guarantee of the accuracy or completeness of information in this document.
== END 2023-08-06 10:01 | disposition home or self-care (01) ==
LOC: PM 10:04
PROVIDERS: PCP Family Medicine; Visit Provider Nurse Practitioner
DX: M54.16 Radiculopathy, lumbar region (principal)
CPT/HCPCS: G0463

== ENCOUNTER 2023-08-31 08:04 | Day surgery (SDC) | payer MEDICARE, SELFPAY ==
--- OUTSIDE RECORDS SUMMARY | 2023-08-31 08:07 | XMS_ITS | CCD ---
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 Name Role Phone HOY ., DR HORNER [...] Penicillins; 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: [penicillins] Drug allergy (disorder) 10-25-2014 [facility] Repository (2 sources) HYDROcodone; 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: [HYDROcodone] Drug Allergy 10-25-2014 [facility] Repository (1 source) nabumetone; 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: [Relafen] Drug Allergy [facility] Repository (1 source) amLODIPine; 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: [AMLODIPINE] Drug Allergy 05-20-2023 [place] Repository (1 source) nabumetone; 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: [NABUMETONE] Drug Allergy 10-25-2014 [place] Repository Problems Active Problems Problem Classification Problem Date Documented Date Episodic/Chronic Coronary atherosclerosis and other heart disease (3 sources) Atherosclerotic heart disease of [place] coronary artery without angina pectoris; 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: [Unstable [...] Onset: 04-24-2022 Episodic Other aftercare (1 source) [facility] (current) use of aspirin; 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] Onset: 04-24-2022 Episodic [...] then as needed *Limit salt/sodium intake Normal [place] Office Visiton 07-08-2023 Follow-up visit [id number] Chung Denton 1955 M Date Provider Department Center 07/08/2023 Kevin-BLAYNE [facility] Family History Problem Relation Age of Onset Heart attack Paternal Grandfather Family Status - Relation Status Age at Paternal Grandfather Level of Service:88545 AL OFFICE/OUTPATIENT ESTABLISHED MOD MDM 30-39 MIN Reason for Visit and Comments: Edema [[id number]] Normal [place] ANESon 06-29-2023 ANES -- Attestation signed by Eliane Soto MD at 06/29/2023 9:56 AM Eliane Soto MD, MPH, [facility], [facility], [facility] Interventional Cardiology Pager Email: 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 Additional Equipment Requests Normal [place] HPon 06-29-2023 HP -- Attestation signed by Eliane Soto MD at 06/29/2023 9:57 AM Eliane Soto MD, MPH, [facility], [facility], [facility], [facility] Interventional Cardiology Pager Email: [email or web address] History Of Present Illness Donnie Denton is [...] He was evaluated by cardiothoracic surgery at [facility] and elected to pursue medical management [...] since 2014. Meaghan Mukherjee DO, MPH Supervisor Stripping [facility] Nabila 06-29-2023 KIERA RN educated pt on d/ c instructions. RN encouraged pt to voice any questions or concerns. Pt verbalizes no questions or concerns at this time. [facility] Orders Onlyon 06-17-2023 Orders Only [id number] Chung Denton 1955 Date Provider Department Center 06/17/2023 928-DEIRDRE RIDLEY VALERIANO [facility] Family History Problem Relation Age of Onset Heart attack Paternal Grandfather Family Status - Relation Status Age at Paternal Grandfather Normal [place] Letter (Out)on 05-26-2023 Letter (Out) [id number] Chung Denton R 1955 M Date Provider Department Center 05/26/2023 None-None [facility] AUTH [place] [facility] Family History Problem Relation Age of Onset Heart attack Paternal Grandfather Family Status - Relation Status Age at Paternal Grandfather Normal [place] Office Visiton 05-20-2023 Follow-up visit [id number] Chung Denton bee R 1955 M Date Provider Department Center 05/20/2023 Richa-ELIANE SOTO VALERIANO [facility] Family History Problem Relation Age of Onset Heart attack Paternal Grandfather Family Status - Relation Status Age at Paternal Grandfather Level of Service:28120 AL OFFICE/OUTPATIENT [facility] 60-74 MINUTES Normal [place] Orders Onlyon 05-20-2023 Orders Only [id number] Chung Denton bee R 1955 M Date Provider Department Center 05/20/2023 Jason5-HIMANSHU MCMILLAN [facility]O [facility] Family History Problem Relation Age of Onset Heart attack Paternal Grandfather Family Status - Relation Status Age at Paternal Grandfather Normal [place] Facesheeton 05-14-2023 Facesheet [id number] D:127 Normal [facility] Ambulatory Visit Summaryon 0 05-13-2023 Ambulatory Visit [...] Spondylosis of cervical spine Ureteral calculus Normal [facility] Physician Referralon 023 Physician Referral [id number] CD:127 Normal [facility] XR HIP RT 2 3V W PELVISon [...] ANTONI PENALOZA Date: 2022-11-13 22:38 Normal [facility] XR LSPINE MIN 4 VIEWSon 10-17 [...] paraspinous abnormality is seen. OTHER: Negative. IMPRESSION: Scyn-ft-[id number] degenerative changes Electronically authenticated by: ANTONI TRACEY Date: 2022-11-14 07:58 Normal [facility] CREATININEon 11-11-2022 Creatinine [Mass/Vol] 1.04 mg/dL Normal 0.70-1.30 [facility] Comment on above: Performed By: #### C ASIF #### [facility] [address] [place] [address] Dr. Gianni Deluna EGFR-AF BELIZEAN >60 Normal >=[address] [facility] Comment on above: Performed By: #### C ASIF #### [facility] [address] [place] [address] Dr. Gianni Deluna EGFR-NON AF BELIZEAN >60 Normal >=60 [facility] Comment on above: Performed By: #### C ASIF #### [facility] [address] [place] [address] CHEST W CONon [...] by: PA CROW Date: 2022-11-11 11:29 Normal [facility] MRI [facility] WO CONon 08-14-20 MRI [facility] CON EXAMINATION: [facility] HISTORY: Cervical radiculopathy COMPARISON: No [...] ANTONI TRACEY Date: 2022-08-14 09:19 Normal [facility] INSULINon 06-04-2022 Insulin 13.5 uIU/mL Normal 2.6-24.9 [facility] Comment on above: Performed By: #### L ACT #### [facility] [address] [place] [address] Dr. Gianni Deluna CBC AUTO DIFFon 06-03-2022 BASO # 0.1 103/ul Normal 0.0-0.1 [facility] Comment on above: Performed By: #### L ACT #### [facility] [address] [place] [address] Dr. Gianni Deluna Basophils/100 WBC (Bld) 1.2 % Normal 0.2-2.0 [facility] Comment on above: Performed By: #### L ACT #### [facility] [address] [place] [address] Dr. Gianni Deluna EO # 0.4 103/ul Normal 0.0-0.7 [facility] Comment on above: Performed By: #### L ACT #### [facility] [address] [place] [address] Dr. Gianni Deluna Eosinophils/100 WBC (Bld) 5.9 % Normal 0.9-7.0 [facility] Comment on above: Performed By: #### L ACT #### [facility] [address] [place] [address] Dr. Gianni Deluna Erythrocyte distribution width (RBC) [Ratio] 13.4 % Normal 11.0-15.0 [facility] Comment on above: Performed By: #### L ACT #### [facility] [address] [place] [address] Dr. Gianni Deluna Hematocrit (Bld) [Volume fraction] 39.6 % Critically low 42.0-54.0 [facility] Comment on above: Performed By: #### L ACT #### [facility] [address] [place] [address] Dr. Gianni Deluna Hemoglobin (Bld) [Mass/Vol] 12.8 g/dL Critically low 14.0-18.0 [facility] Comment on above: Performed By: #### L ACT #### [facility] [address] [place] [address] Dr. Gianni Deluna IG # 0.04 10e3/ul Critically high 0.00-0.03 [facility] Comment on above: Performed By: #### L ACT #### [facility] [address] [place] [address] Dr. Gianni Deluna IG % 0.7 % Critically high 0.0-0.5 [facility] Comment on above: Performed By: #### L ACT #### [facility] [address] [place] [address] Dr. Gianni Deluna LYMPH # 1.9 103/ul Normal 1.2-3.8 [facility] Comment on above: Performed By: #### L ACT #### [facility] [address] [place] [address] Dr. Gianni Deluna Lymphocytes/100 WBC (Bld) 31.7 % Normal 20.5-60.0 [facility] Comment on above: Performed By: #### L ACT #### [facility] [address] [place] [address] Dr. Gianni Deluna MANUAL DIFF REQ NO Normal [facility] Comment on above: Performed By: #### L ACT #### [facility] [address] [place] [address] Dr. Gianni Deluna MCH (RBC) [Entitic mass] 30.2 pg Normal 25.9-34.0 [facility] Comment on above: Performed By: #### L ACT #### [facility] [address] [place] [address] Dr. Gianni Deluna MCHC (RBC) [Mass/Vol] 32.3 g/dL Normal 29.9-35.2 [facility] Comment on above: Performed By: #### L ACT #### [facility] [address] [address] [address] Gianni Deluna MCV (RBC) [Entitic vol] 93.4 fL Normal 80.0-94.0 [facility] Comment on above: Performed By: #### L ACT #### [facility] [address] [address] [address] Gianni Deluna MONO # 0.7 103/ul Normal 0.3-0.8 [facility] Comment on above: Performed By: #### L ACT #### [facility] [address] [address] [address] Gianni Deluna Monocytes/100 WBC (Bld) 11.9 % Normal 1.7-12.0 [facility] Comment on above: Performed By: #### L ACT #### [facility] [address] [address] [address] Gianni Deluna NEUT # 2.9 103/ul Normal 1.4-6.5 [facility] Comment on above: Performed By: #### L ACT #### [facility] [address] [address] [address] Gianni Deluna Neutrophils/100 WBC (Bld) 48.6 % Normal 43.0-75.0 [facility] Comment on above: Performed By: #### L ACT #### [facility] [address] [address] [address] Gianni Deluna Platelet mean volume (Bld) [Entitic vol] 9.1 fL Critically low 9.5-13.5 [facility] Comment on above: Performed By: #### L ACT #### [facility] [address] [address] [address] Gianni Deluna PLT 168 103/ul Normal 150-450 [facility] Comment on above: Performed By: #### L ACT #### [facility] [address] [address] [address] Gianni Deluna RBC 4.24 106/ul Critically low 4.70-6.10 [facility] Comment on above: Performed By: #### L ACT #### [facility] [address] [address] [address] Gianni Deluna WBC 6.0 103/ul Normal 4.0-11.0 [facility] Comment on above: Performed By: #### L ACT #### [facility] [address] [address] [address] Gianni Deluna FREE THYROXINE INDEX T7on FTI 1.91 Normal 1.30-4.50 [facility] Comment on above: Performed By: #### L ACT #### [facility] [address] [address] [address] Gianni Deluna T3U 36.0 % Normal 33.0-40.0 [facility] Comment on above: Performed By: #### L ACT #### [facility] [address] [place] [address] Dr. Gianni Deluna T4 [Mass/Vol] 5.30 ug/dL Normal 4.50-12.10 [facility] Comment on above: Performed By: #### L ACT #### [facility] [address] [address] [address] Gianni Deluna GLYCOHEMOGLOBIN A1Con 2021 ADA RECOMMENDATION SEE BELOW Normal [facility] Comment on above: Result Comment: ADA RECOMMENDED LIMIT 4.0 - 6.0 ADA THERAPEUTIC TARGET < 7.0 ACTION SUGGESTED > 7.0 Performed By: #### D DIM #### [facility] [address] [address] [address] Gianni Deluna Glucose [Mass/Vol] 140 mg/dL Normal [facility] Comment on above: Performed By: #### D DIM #### [facility] [address] [address] [address] Gianni Deluna HbA1c (Bld) [Mass fraction] 6.5 % Critically high 4.5-6.2 [facility] Comment on above: Performed By: #### D DIM #### [facility] [address] [place] [address] Dr. Gianni Deluna LIPID PROFILEon 06-03-2022 CHOL-HDL RATIO NORM SEE BELOW Normal [facility] Comment on above: Result Comment: 3.3 - 4.4 LOW RISK 4.4 - 7.1 AVERAGE RISK 7.1 - 11.0 MODERATE RISK >11.0 HIGH RISK Performed By: #### T SH, T7, URIC, CMP, LIPID #### [facility] [address] [address] [address] Gianni Deluna Cholesterol [Mass/Vol] 104 mg/dL Normal <=200 [facility] Comment on above: Performed By: #### T SH, T7, URIC, CMP, LIPID #### [facility] [address] [address] [address] Gianni Deluna Cholesterol in HDL [Mass/Vol] 49 mg/dL Normal 40-60 [facility] Comment on above: Performed By: #### T SH, T7, URIC, CMP, LIPID #### [facility] [address] [place] [address] Dr. Gianni Deluna Cholesterol in LDL [Mass/Vol] 46.6 mg/dL Normal [facility] Comment on above: Performed By: #### T SH, T7, URIC, CMP, LIPID #### [facility] [address] [address] [address] Gianni Deluna Cholesterol.total/Ch olesterol in HDL [Mass ratio] 2.1 {ratio} Normal [facility] Comment on above: Performed By: #### T SH, T7, URIC, CMP, LIPID #### [facility] [address] [address] [address] Gianni Deluna HDL NORMAL > or = 60 mg/dl - LO W CARDIOVASCULAR RISK <40 mg/dl - HIGH CARDIOVASCULAR RISK Normal [facility] Comment on above: Performed By: #### T SH, T7, URIC, CMP, LIPID #### [facility] [address] [place] [address] Dr. Gianni Deluna LDL CALC NORMAL SEE BELOW Normal [facility] Comment on above: Result Comment: <100 mg/dl OPTIMAL 100 - 129 mg/dl NEAR OR ABOVE OPTIMAL 130 - 159 mg/dl BORDERLINE HIGH 160 - 189 mg/dl HIGH >190 mg/dl VERY HIGH Performed By: #### T SH, T7, URIC, CMP, LIPID #### [facility] [address] [address] [address] Gianni Deluna Triglyceride [Mass/Vol] 42 mg/dL Normal <=150 [facility] Comment on above: Performed By: #### T SH, T7, URIC, CMP, LIPID #### [facility] [address] [address] [address] Gianni Deluna VLDL CALC 8.4 mg/dL Normal [facility] Comment on above: Performed By: #### T SH, T7, URIC, CMP, LIPID #### [facility] [address] [place] [address] Dr. Gianni Deluna PROF 14(COMP METB)on 022 Albumin [Mass/Vol] 2.9 g/dL Critically low 3.4-5.0 [facility] Comment on above: Performed By: #### T SH, T7, URIC, CMP, LIPID #### [facility] [address] [place] [address] Dr. Gianni Deluna Albumin/Globulin [Mass ratio] 0.8 {ratio} Normal [facility] Comment on above: Performed By: #### T SH, T7, URIC, CMP, LIPID #### [facility] [address] [address] [address] Gianni Deluna ALP [Catalytic activity/Vol] 127 U/L Critically high 46-116 [facility] Comment on above: Performed By: #### T SH, T7, URIC, CMP, LIPID #### [facility] [address] [address] [address] Gianni Deluna ALT [Catalytic activity/Vol] 23 U/L Normal 16-63 [facility] Comment on above: Performed By: #### T SH, T7, URIC, CMP, LIPID #### [facility] [address] [place] [address] Dr. Gianni Deluna Anion gap [Moles/Vol] 8.4 mmol/L Normal [facility] Comment on above: Performed By: #### T SH, T7, URIC, CMP, LIPID #### [facility] [address] [place] [address] Dr. Gianni Deluna AST [Catalytic activity/Vol] 21 U/L Normal 15-37 [facility] Comment on above: Performed By: #### T SH, T7, URIC, CMP, LIPID #### [facility] [address] [address] [address] Gianni Deluna Bilirubin [Mass/Vol] 0.5 mg/dL Normal 0.2-1.0 [facility] Comment on above: Performed By: #### T SH, T7, URIC, CMP, LIPID #### [facility] [address] [address] [address] Gianni Deluna Calcium [Mass/Vol] 8.3 mg/dL Critically low 8.5-10.1 [facility] Comment on above: Performed By: #### T SH, T7, URIC, CMP, LIPID #### [facility] [address] [place] [address] Dr. Gianni Deluna Chloride [Moles/Vol] 107 mmol/L Normal 98-107 [facility] Comment on above: Performed By: #### T SH, T7, URIC, CMP, LIPID #### [facility] [address] [address] [address] Gianni Deluna CO2 [Moles/Vol] 30.6 mmol/L Normal 21.0-32.0 [facility] Comment on above: Performed By: #### T SH, T7, URIC, CMP, LIPID #### [facility] [address] [address] [address] Gianni Deluna Creatinine [Mass/Vol] 0.93 mg/dL Normal 0.70-1.30 [facility] Comment on above: Performed By: #### T SH, T7, URIC, CMP, LIPID #### [facility] [address] [address] [address] Gianni Deluna EGFR-AF BELIZEAN >60 Normal >=60 [facility] Comment on above: Performed By: #### T SH, T7, URIC, CMP, LIPID #### [facility] [address] [address] [address] Gianni Deluna EGFR-NON AF BELIZEAN >60 Normal >=60 [facility] Comment on above: Performed By: #### T SH, T7, URIC, CMP, LIPID #### [facility] [address] [place] [address] Dr. Gianni Deluna Globulin (S) [Mass/Vol] 3.5 g/dL Normal [facility] Comment on above: Performed By: #### T SH, T7, URIC, CMP, LIPID #### [facility] [address] [place] [address] Dr. Gianni Deluna Glucose [Mass/Vol] 114 mg/dL Critically high 74-106 [facility] Comment on above: Performed By: #### T SH, T7, URIC, CMP, LIPID #### [facility] [address] [place] [address] Dr. Gianni Deluna Potassium [Moles/Vol] 4.0 mmol/L Normal 3.5-5.1 [facility] Comment on above: Performed By: #### T SH, T7, URIC, CMP, LIPID #### [facility] [address] [place] [address] Dr. Gianni Deluna Protein [Mass/Vol] 6.4 g/dL Normal 6.4-8.2 [facility] Comment on above: Performed By: #### T SH, T7, URIC, CMP, LIPID #### [facility] [address] [place] [address] Dr. Gianni Deluna Sodium [Moles/Vol] 142 mmol/L Normal 136-145 [facility] Comment on above: Performed By: #### T SH, T7, URIC, CMP, LIPID #### [facility] [address] [place] [address] Dr. Gianni Deluna Urea nitrogen [Mass/Vol] 11.0 mg/dL Normal 7.0-18.0 [facility] Comment on above: Performed By: #### T SH, T7, URIC, CMP, LIPID #### [facility] [address] [place] [address] Dr. Gianni Deluna Urea nitrogen/Creatinine [Mass ratio] 11.8 mg/mg Normal [facility] Comment on above: Performed By: #### T SH, T7, URIC, CMP, LIPID #### [facility] [address] [place] [address] Dr. Gianni Deluna TSHon 06-03-2022 TSH 0.814 uIU/mL Normal 0.358-3.740 [facility] Comment on above: Performed By: #### L ACT #### [facility] [address] [place] [address] Dr. Gianni Deluna URIC ACID SERUMon 06-03-2022 Urate [Mass/Vol] 5.2 mg/dL Normal 3.5-7.[address] [facility] Comment on above: Performed By: #### T SH, T7, URIC, CMP, LIPID #### [facility] [address] [place] [address] Dr. Gianni Deluna CARDIAC ALEX 3-6on 2 CK [Catalytic activity/Vol] 82 U/L Normal 39-308 [facility] Comment on above: Performed By: #### L ACT #### [facility] [address] [place] [address] Dr. Gianni Deluna CK.MB [Mass/Vol] 2.40 ng/mL Normal <=3.[address] [facility] Comment on above: Performed By: #### L ACT #### [facility] [address] [place] [address] Dr. Gianni Deluna HSTROP 8.6 pg/mL Normal 4.0-76.1 [facility] Comment on above: Result Comment: CUT- OFF POINTS HAVE BEEN ESTABLISHED BASED ON THE FOURTH UNIVERSAL DEFINITIONS OF MYOCARDIAL INFARCTION. THE UPPER REFERENCE LIMIT (URL) OF TROPONIN, DEFINED THE 99TH PERCENTILE OF cTnI DISTRIBUTION IN A REFERENCE POPULATION, HAS BEEN CONFIRMED THE DECISION THRESHOLD FOR [place] DIAGNOSIS. Performed By: #### L ACT #### [facility] [address] [place] [address] ABD/PELV W CONon [...] JAIMIE COOPER Date: 2022-04-21 00:38 Normal [facility] LACTATE/LACTIC ACIDon 2021 Lactate [Moles/Vol] 2.2 mmol/L Critically high 0.4-1.9 [facility] Comment on above: Performed By: #### L ACT #### [facility] [address] [address] [address] Gianni Deluna AMYLASEon 04-20-2022 Amylase [Catalytic activity/Vol] 139 U/L Critically high 25-115 [facility] Comment on above: Performed By: #### L ACT #### [facility] [address] [address] [address] Gianni Deluna CARDIAC ALEX ADMITon 022 CK [Catalytic activity/Vol] 88 U/L Normal 39-308 [facility] Comment on above: Performed By: #### C MADM #### [facility] [address] [address] [address] Gianni Deluna CK.MB [Mass/Vol] 1.82 ng/mL Normal <=3.[address] [facility] Comment on above: Performed By: #### C MADM #### [facility] [address] [address] [address] Gianni Deluna HSTROP 7.2 pg/mL Normal 4.0-76.1 [facility] Comment on above: Result Comment: CUT- OFF POINTS HAVE BEEN ESTABLISHED BASED ON THE FOURTH UNIVERSAL DEFINITIONS OF MYOCARDIAL INFARCTION. THE UPPER REFERENCE LIMIT (URL) OF TROPONIN, DEFINED THE 99TH PERCENTILE OF cTnI DISTRIBUTION IN A REFERENCE POPULATION, HAS BEEN CONFIRMED THE DECISION THRESHOLD FOR [place] DIAGNOSIS. Performed By: #### C MADM #### [facility] [address] [place], [place] [address] Dr. Gianni Deluna FILIBERTO 93 ng/mL Normal 16-96 [facility] Comment on above: Performed By: #### C MADM #### [facility] [address] [place] [address] Dr. Gianni Deluna CBC AUTO DIFFon 04-20-2022 BASO # 0.0 103/ul Normal 0.0-0.1 [facility] Comment on above: Performed By: #### C BC #### [facility] [address] [place] [address] Dr. Gianni Deluna Basophils/100 WBC (Bld) 0.3 % Normal 0.2-2.0 [facility] Comment on above: Performed By: #### C BC #### [facility] [address] [place] [address] Dr. Gianni Deluna EO # 0.0 103/ul Normal 0.0-0.7 [facility] Comment on above: Performed By: #### C BC #### [facility] [address] [place] [address] Dr. Gianni Deluna Eosinophils/100 WBC (Bld) 0.1 % Critically low 0.9-7.0 [facility] Comment on above: Performed By: #### C BC #### [facility] [address] [place] [address] Dr. Gianni Deluna Erythrocyte distribution width (RBC) [Ratio] 13.5 % Normal 11.0-15.0 [facility] Comment on above: Performed By: #### C BC #### [facility] [address] [place] [address] Dr. Gianni Deluna Hematocrit (Bld) [Volume fraction] 45.8 % Normal 42.0-54.0 [facility] Comment on above: Performed By: #### C BC #### [facility] [address] [address] [address] Gianni Deluna Hemoglobin (Bld) [Mass/Vol] 15.3 g/dL Normal 14.0-18.0 [facility] Comment on above: Performed By: #### C BC #### [facility] [address] [address] [address] Gianni Deluna IG # 0.05 10e3/ul Critically high 0.00-0.03 [facility] Comment on above: Performed By: #### C BC #### [facility] [address] [place] [address] Dr. Gianni Deluna IG % 0.5 % Normal 0.0-0.5 [facility] Comment on above: Performed By: #### C BC #### [facility] [address] [address] [address] Gianni Deluna LYMPH # 0.8 103/ul Critically low 1.2-3.8 [facility] Comment on above: Performed By: #### C BC #### [facility] [address] [place] [address] Dr. Gianni Deluna Lymphocytes/100 WBC (Bld) 7.7 % Critically low 20.5-60.0 [facility] Comment on above: Performed By: #### C BC #### [facility] [address] [address] [address] Gianni Deluna MANUAL DIFF REQ NO Normal [facility] Comment on above: Performed By: #### C BC #### [facility] [address] [address] [address] Gianni Deluna MCH (RBC) [Entitic mass] 30.4 pg Normal 25.9-34.0 [facility] Comment on above: Performed By: #### C BC #### [facility] [address] [place] [address] Dr. Gianni Deluna MCHC (RBC) [Mass/Vol] 33.4 g/dL Normal 29.9-35.2 [facility] Comment on above: Performed By: #### C BC #### [facility] [address] [place] [address] Dr. Gianni Deluna MCV (RBC) [Entitic vol] 90.9 fL Normal 80.0-94.0 [facility] Comment on above: Performed By: #### C BC #### [facility] [address] [place] [address] Dr. Gianni Deluna MONO # 0.4 103/ul Normal 0.3-0.8 [facility] Comment on above: Performed By: #### C BC #### [facility] [address] [place] [address] Dr. Gianni Deluna Monocytes/100 WBC (Bld) 3.3 % Normal 1.7-12.0 [facility] Comment on above: Performed By: #### C BC #### [facility] [address] [place] [address] Dr. Gianni Deluna NEUT # 9.7 103/ul Critically high 1.4-6.5 [facility] Comment on above: Performed By: #### C BC #### [facility] [address] [place] [address] Dr. Gianni Deluna Neutrophils/100 WBC (Bld) 88.1 % Critically high 43.0-75.0 [facility] Comment on above: Performed By: #### C BC #### [facility] [address] [place] [address] Dr. Gianni Deluna Platelet mean volume (Bld) [Entitic vol] 8.9 fL Critically low 9.5-13.5 [facility] Comment on above: Performed By: #### C BC #### [facility] [address] [place] [address] Dr. Gianni Deluna PLT 198 103/ul Normal 150-450 [facility] Comment on above: Performed By: #### C BC #### [facility] [address] [place] [address] Dr. Gianni Deluna RBC 5.04 106/ul Normal 4.70-6.10 [facility] Comment on above: Performed By: #### C BC #### [facility] [address] [address] [address] Gianni Deluna WBC 11.0 103/ul Normal 4.0-11.0 [facility] Comment on above: Performed By: #### C BC #### [facility] [address] [place] [address] Dr. Gianni Deluna Covid-[facility]on SARS-CoV-2 (COVID-19) RNA NICHOLE+probe Ql (Unsp spec) Not detected Normal NOT DETECTED [facility] Comment on above: Result Comment: When [...] for this test is supported by the [employer] and [employer]'s declaration that [...] used). Performed By: #### C VDTBH #### [facility] [address] [place] [address] Dr. Gianni Deluna D-DIMERon 04-20-2022 D-DIMER 0.37 mg/L FEU Normal <=0.59 [facility] Comment on above: Performed By: #### D DIM #### [facility] [address] [place] [address] Dr. Gianni Deluna D-DIMER COMMENTS SEE BELOW Normal [facility] Comment on above: Result Comment: Incr [...] hospitalization. Performed By: #### D DIM #### [facility] [address] [place] [address] Dr. Gianni Deluna LACTATE/LACTIC ACIDon 2021 Lactate [Moles/Vol] 2.3 mmol/L Critically high 0.4-1.9 [facility] Comment on above: Performed By: #### L ACT #### [facility] [address] [place] [address] Dr. Gianni Deluna LIPASEon 04-20-2022 Lipase [Catalytic activity/Vol] 48.0 U/L Critically low 73.0-393.0 [facility] Comment on above: Performed By: #### L ACT #### [facility] [address] [place] [address] Dr. Gianni Deluna PROF 14(COMP METB)on 022 Albumin [Mass/Vol] 3.9 g/dL Normal 3.4-5.0 [facility] Comment on above: Performed By: #### L ACT #### [facility] [address] [place] [address] Dr. Gianni Deluna Albumin/Globulin [Mass ratio] 1.0 {ratio} Normal [facility] Comment on above: Performed By: #### L ACT #### [facility] [address] [place] [address] Dr. Gianni Deluna ALP [Catalytic activity/Vol] 127 U/L Critically high 46-116 [facility] Comment on above: Performed By: #### L ACT #### [facility] [address] [place] [address] Dr. Gianni Deluna ALT [Catalytic activity/Vol] 27 U/L Normal 16-63 [facility] Comment on above: Performed By: #### L ACT #### [facility] [address] [place] [address] Dr. Gianni Deluna Anion gap [Moles/Vol] 15.9 mmol/L Normal [facility] Comment on above: Performed By: #### L ACT #### [facility] [address] [address] [address] Gianni Deluna AST [Catalytic activity/Vol] 27 U/L Normal 15-37 [facility] Comment on above: Performed By: #### L ACT #### [facility] [address] [address] [address] Gianni Deluna Bilirubin [Mass/Vol] 0.9 mg/dL Normal 0.2-1.0 [facility] Comment on above: Performed By: #### L ACT #### [facility] [address] [address] [address] Gianni Deluna Calcium [Mass/Vol] 8.9 mg/dL Normal 8.5-10.1 [facility] Comment on above: Performed By: #### L ACT #### [facility] [address] [address] [address] Gianni Deluna Chloride [Moles/Vol] 103 mmol/L Normal 98-107 [facility] Comment on above: Performed By: #### L ACT #### [facility] [address] [address] [address] Gianni Deluna CO2 [Moles/Vol] 24.2 mmol/L Normal 21.0-32.[address] [facility] Comment on above: Performed By: #### L ACT #### [facility] [address] [address] [address] Gianni Deluna Creatinine [Mass/Vol] 1.27 mg/dL Normal 0.70-1.30 [facility] Comment on above: Performed By: #### L ACT #### [facility] [address] [address] [address] Gianni Deluna EGFR-AF BELIZEAN >60 Normal >=[address] [facility] Comment on above: Performed By: #### L ACT #### [facility] [address] [address] [address] Gianni Deluna EGFR-NON AF BELIZEAN 56 mL/min/1.73m2 Critically low >=60 [facility] Comment on above: Performed By: #### L ACT #### [facility] [address] [place] [address] Dr. Gianni Deluna Globulin (S) [Mass/Vol] 3.9 g/dL Normal [facility] Comment on above: Performed By: #### L ACT #### [facility] [address] [address] [address] Gianni Deluna Glucose [Mass/Vol] 145 mg/dL Critically high 74-106 [facility] Comment on above: Performed By: #### L ACT #### [facility] [address] [place] [address] Dr. Gianni Deluna Potassium [Moles/Vol] 4.1 mmol/L Normal 3.5-5.1 [facility] Comment on above: Performed By: #### L ACT #### [facility] [address] [place] [address] Dr. Gianni Deluna Protein [Mass/Vol] 7.8 g/dL Normal 6.4-8.2 [facility] Comment on above: Performed By: #### L ACT #### [facility] [address] [place] [address] Dr. Gianni Deluna Sodium [Moles/Vol] 139 mmol/L Normal 136-145 [facility] Comment on above: Performed By: #### L ACT #### [facility] [address] [place] [address] Dr. Gianni Deluna Urea nitrogen [Mass/Vol] 22.0 mg/dL Critically high 7.0-18.0 [facility] Comment on above: Performed By: #### L ACT #### [facility] [address] [place] [address] Dr. Gianni Deluna Urea nitrogen/Creatinine [Mass ratio] 17.3 mg/mg Normal [facility] Comment on above: Performed By: #### L ACT #### [facility] [address] [place] [address] Dr. Gianni Deluna XR ABD FLAT UP_PA [...] by: JAIMIE COOPER Date: 2022-04-20 21:58 Normal [facility] [place] RICHELLE DOP LEG LTon 03-18-20 US [...] by: LAWANDA VEE Date: 2022-03-18 13:25 Normal [facility] US RICHELLE DOP LEG LTon 12-08-19 US [...] ANTONI JOLLEY Date: 2021-12-06 22:57 Normal [facility] Encounters Encounter Date Encounter Type Care Provider Facility Start: 07-17-2023 ambulatory Evens Archer MD Facility:[facility] Start: 07-08-2023 End: 07-08-2023 ambulatory [facility] Start: 06-29-2023 End: 06-29-2023 ambulatory [facility] Start: 06-29-2023 End: 06-29-2023 Encounter for other preprocedural examination [facility] Start: 06-17-2023 Encounter for other preprocedural examination [facility] Start: 05-20-2023 End: 05-20-2023 ambulatory [facility] Start: 05-13-2023 End: 05-14-2023 ambulatory Pramod HAYWARD Facility:[facility] Start: 05-08-2023 ambulatory Pramod HAYWARD Facility:[facility] [...] Comment on above: Performed By: #### P [facility] #### [facility] [address] [place] [address] Dr. Gianni Deluna Payers Date Payer Category Payer Unknown [id number] 1960 Self-pay [id number] 1960 Unknown [id number] 1955 Unknown [id number] 2.16.84 [id number] 1954 Unknown [id number] 2.16.84 [id number] 1954 Unknown [id number] 2.16.84 [id number] 1954 Unknown [id number] 2.16.84 [id number] 1954 Unknown [id number] 2.16.84 [id number] 1954 Unknown [id number] 2.16.84 [id number] 1954 Unknown [id number] 2.16.84 [id number] 1954 Unknown [id number] 2.16.84 [id number] 1954 Unknown [id number] 2.16.8 [id number] 1954 Unknown [id number] 2.16.8 [id number] 1954 Unknown [id number] 2.16.8 [id number] Progress note 07-08-2023 Note Date & Type Note Facility 07-08-2023 Note Cardiovascular Medic [facility] SUBJECTIVE Chief Complaint Patient presents with [...] Final Atrial Rate 06/29/2023 47 BPM Final AL Interval 06/29/2023 154 ms Final QRS DURATION 06/29/2023 82 ms Final QT Interval 06/29/2023 482 ms Final QTC CALCULATION(BAZETT) 06/29/2023 426 ms Final P Molena 06/29/2023 16 degrees Final R-Molena 06/29/2023 55 degrees Final T Wave Molena 06/29/2023 41 degrees Final No results found for: EXTCMP, BMPR1A, CBCDIF, BNP, BNP, LASAP, RED Testing/Procedures: No echocardiogram results found for the past 14 days No echocardiogram results found for the past 12 months Encounter Date: 06/29/23 ECG 12 lead Result Value Ventricular Rate 47 Atrial Rate 47 AL Interval 154 QR (more content not included)... [facility] Progress note 07-08-2023 Note Date & Type [...] All other systems reviewed and are negative. [facility] note 06-29-2023 Note Date & Type [...] inhibitor Follow-up with Dr. Soto in the [place] office in the next 2 to 4 weeks PROCEDURES: Ultrasound-guided access to the right common femoral artery, limited femoral angiography, ultrasound-guided access to the right common femoral vein, right heart catheterization, bilateral selective coronary angiography, placement of a 6 [place] [employer] closure device METHODS: After risks, benefits, and [...] micropuncture kit was upsized to a 6 Argentine 11 cm sheath. Angiography via the sheath was performed. Right heart catheterization was performed using a Santos catheter via the venous sheath. Pressures were measured in the right atrium, right ventricle, pulmonary artery, and pulmonary capillary wedge positions. Oxygen saturations were obtained and cardiac output/cardiac index was calculated using the modified Ntaalie principle. The Santos catheter was removed. Bilateral selective coronary angiography was performed using JL4 and JR4 catheters. After reviewing the images, it was elected to conclude the procedure. All catheters were removed. A 5 Argentine [employer] closure device was deployed per protocol [...] device. INDICATIONS: Preoperative evaluation, coronary artery disease. [facility] Progress note 05-20-2023 Note Date & Type Note Facility 05-20-2023 Note [facility] Note Chief Complaint: New patient here to establish care. Ref from Dr. Archer for surgery clearance. He has hx of CAD and previously followed with [facility] back in 2014. He has upcoming [...] percutaneous revascularization. He was evaluated at the [facility]. It was elected to continue [...] and a reasonable target. Was seen at [facility]; single-vessel coronary artery disease with a [...] LAD. This wo (more content not included)... [facility] Clinical Note 05-13-2023 Note Date & Type [...] 10 mg Tab (more content not included)... [facility] Comment on above: Result Comment: Elec tronically [...] and content) DATE CREATED AUTHOR 11/21/[address] DATE CREATED AUTHOR AUTHOR'S ORGANIZ ATION 05/21/2023 [facility] DATE CREATED AUTHOR AUTHOR'S ORGANIZ ATION 07/10/2023 [facility] DATE CREATED AUTHOR AUTHOR'S ORGANIZ ATION 07/20/2023 [facility] FOR RECORDS PERTAINING TO PATIENTS WHO ARE [...] BE BASED ON THE PRIMARY CLINICAL RECORDS. [facility] [employer] provides no warranty or guarantee of the accuracy or completeness of information in this document.
[2023-08-31 08:23] VITALS: BP 134/64; PULSE 52; RESP 16; TEMP 36.2; O2SAT 100
[2023-08-31] MEDS: BUPIVACAINE HCL 0.25% PF 25 MG/10 ML VIAL INJ (09:27)
[2023-08-31] MEDS: IOHEXOL 240 MG/ML - 10 ML VIAL 12 MG INJ (09:27)
[2023-08-31] MEDS: LIDOCAINE HCL 2% PF 100 MG/5 ML VIAL 3 ML INJ (09:27)
[2023-08-31] MEDS: 0.9 % SODIUM CHLORIDE 10 ML INJ (09:27)
[2023-08-31] MEDS: TRIAMCINOLONE ACETONIDE 40 MG/ML VIAL 80 MG INJ (09:27)
[2023-08-31 09:28] VITALS: BP 157/70; PULSE 50; RESP 18; O2SAT 100
--- NOTE | 2023-08-31 09:29 | P.ON_ITS ---
Date of procedure: 08/31/23 Pre-op diagnosis: Lumbar stenosis with neurogenic claudication Post-op diagnosis: same as pre-op Procedure: Procedure: Right L4-5, L5-S1 transforaminal epidural steroid injection Medications: Bupivacaine 0.25% 2cc, lidocaine 2% 1cc, kenalog 80mg The patient was seen and examined in the preoperative holding area.? Informed consent was obtained and placed on the chart.? Patient was brought to the medical procedure unit and placed in the prone position where a timeout was completed verifying the correct patient, procedure site, position, and planned special equipment using sterile aseptic technique.? Under direct fluoroscopic visualization a 25-gauge Quincke tipped spinal needle was advanced to the designated neural foramen where contrast dye was injected to show adequate spread.? The needle was inserted at level right L4-5. There was no evidence of vascular or adverse uptake.? Epidural spread was appreciated.? The above- mentioned injectate was then placed in a 1.5 mL aliquot preceded by negative aspiration.? The needle was removed. The needle was inserted and the procedure repeated at level right L5-S1.? The surgery site was covered.? Patient was taken to the postprocedural recovery area and monitored for an appropriate length of time before found suitable for discharge in the accompaniment of a responsible adult. Anesthesia: Local Surgeon: Stefany Ballard Pathology: none sent Condition: stable Disposition: no change
[2023-08-31 09:30] VITALS: BP 160/72; PULSE 50; RESP 18; O2SAT 99
== END 2023-08-31 09:36 | disposition home or self-care (01) ==
PROVIDERS: PCP Family Medicine; Visit Provider Anesthesiology
DX: M48.062 Spinal stenosis, lumbar region with neurogenic claudication (principal)
CPT/HCPCS: 64483; 64484; J0665; J3301; Q9966

== ENCOUNTER 2023-09-10 13:54 | Outpatient (OUT) | payer MEDICARE, SELFPAY ==
--- OUTSIDE RECORDS SUMMARY | 2023-09-10 13:58 | XMS_ITS | CCD ---
Author Name Unknown Address [address] [place] [address] Organization [facility] Care Team Providers Care Aerobics Teacher Name Role Phone HOY ., DR HORNER [...] ., DR HORNER Consulting Unavailable ZIEBER, DR AP Campbell Consulting Unavailable HOY ., DR HORNER [...] DAILY Attending Unavailable ELIANE SOTO Referring Unavailable Gianni MUÑOZ, Evens Benavidez Attending Unavailjuan Ballard MD, Stefany Vines Attending Unavailable Allergies Allergy Classification Reported Allergen(s) Allergy Type Date of Onset Reaction(s) Facility (3 sources) Penicillins; 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: [penicillins] Drug allergy (disorder) 10-25-2014 [facility] Repository (2 sources) HYDROcodone; 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: [HYDROcodone] Drug Allergy 10-25-2014 [facility] Repository (1 source) nabumetone; 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: [Relafen] Drug Allergy [facility] Repository (1 source) amLODIPine; 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: [AMLODIPINE] Drug Allergy 05-20-2023 [facility] Repository (1 source) nabumetone; 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: [NABUMETONE] Drug Allergy 10-25-2014 [facility] Repository Problems Active Problems Problem Classification Problem Date Documented Date Episodic/Chronic Coronary atherosclerosis and other heart disease (3 sources) Atherosclerotic heart disease of koi coronary artery without angina pectoris; 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: [Unstable [...] Onset: 04-24-2022 Episodic Other aftercare (1 source) USP (current) use of aspirin; 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: [FPC CURRENT USE OF ASPIRIN] Onset: 04-24-2022 Episodic [...] then as needed *Limit salt/sodium intake Normal [facility] Office Visiton 07-08-2023 Follow-up visit [id number] Chung Denton 1955 M Date Provider Department [place] 07/08/2023 BLAYNE TYLER Family History Problem Relation Age of Onset Heart attack Paternal Grandfather Family Status - Relation Status Age at Paternal Grandfather Level of Service:01851 [place] OFFICE/OUTPATIENT ESTABLISHED [facility] 30-39 MIN Reason for Visit and Comments: Edema [[id number]] Normal [facility] ANESon 06-29-2023 ANES -- Attestation signed by Eliane Soto MD at 06/29/2023 9:56 AM Eliane Soto MD, MPH, [facility], [facility] Interventional Cardiology Pager Email: [email or web address] Patient: Donnie Denton Procedure Information Date/Time: 06/29/23 1030 Procedures: Coronary angiography (Bilateral) - per Maria G in pre-cert at [facility], this has already been authorized thru Aug 2023 - right femoral approach Right heart cath Location: [facility] DIVIDEND CLERK 3 / [facility] (Cath) Providers: Eliane Soto MD [...] fellow and attending. Additional Equipment Requests Normal [facility] HPon 06-29-2023 HP -- Attestation signed by Eliane Soto MD at 06/29/2023 9:57 AM Eliane Soto MD, MPH, [facility], [facility], [facility] Interventional Cardiology Pager Email: [email or web address] History Of Present Illness Donnie Denton is a 68 y.o. 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 He was seen in the outpatient clinic for preoperative clearance for hernia surgery. At this time he was complaining of intermittent chest pain or shortness of breath with exertion. He had a cardiac cath in 2014 that showed moderate to severe two-vessel disease. He was evaluated by cardiothoracic surgery at [facility] and elected to pursue medical management at [...] CAD that has been medically treated since 2015. Meaghan Mukherjee DO, MPH Freight Service Inspector [facility] 06-29-2023 KIERA RN educated pt on d/ c instructions. RN encouraged pt to voice any questions or concerns. Pt verbalizes no questions or concerns at this time. [facility] Orders Onlyon 06-17-2023 Orders Only [id number] Chung Denton 1955 M Date Provider Department Center 06/17/2023 Kristopher8-DEIRDRE RIDLEY [facility] Family History Problem Relation Age of Onset Heart attack Paternal Grandfather Family Status - Relation Status Age at Paternal Grandfather Normal [facility] Letter (Out)on 05-26-2023 Letter (Out) [id number] Chung Denton bee R 1955 Provider Department Center 05/26/2023 None-None [facility] AUTH [facility] Medical C Family History Problem Relation Age of Onset Heart attack Paternal Grandfather Family Status - Relation Status Age at Paternal Grandfather Normal [facility] Office Visiton 05-20-2023 Follow-up visit [id number] BertinChung Campbell 1955 [facility] Provider Department Center 05/20/2023 Richa-ELIANE SOTO VALERIANO [facility] Family History Problem Relation Age of Onset Heart attack Paternal Grandfather Family Status - Relation Status Age at Paternal Grandfather Level of Service:58668 [place] OFFICE/OUTPATIENT [facility] 60-74 MINUTES Normal [facility] Orders Onlyon 05-20-2023 Orders Only [id number] BertinChung Campbell 1955 [facility] Provider Department Center 05/20/2023 Jason5-HIMANSHU MCMILLAN VALERIANO [facility] Family History Problem Relation Age of Onset Heart attack Paternal Grandfather Family Status - Relation Status Age at Paternal Grandfather Normal [facility] Facesheeton 05-14-2023 Facesheet [id number] D:127 Normal [facility] Ambulatory Visit Summaryon 0 05-13-2023 Ambulatory Visit Summary DENTONDONNIE :1955 Visit Date:05/13/2023 Ambulatory Visit Instructions Your [...] Spondylosis of cervical spine Ureteral calculus Normal [facility] Physician Referralon 023 Physician Referral [id number] CD:127 Normal [facility] XR HIP RT 2 3V W PELVISon [...] ANTONI PENALOZA Date: 2022-11-13 22:38 Normal [facility] XR LSPINE MIN 4 VIEWSon 10-17 XR [...] paraspinous abnormality is seen. OTHER: Negative. IMPRESSION: Ftru-up-uduofryd degenerative changes Electronically authenticated by: ANTONI TRACEY Date: 2022-11-14 07:58 Normal [facility] CREATININEon 11-11-2022 Creatinine [Mass/Vol] 1.04 mg/dL Normal 0.70-1.30 [facility] Comment on above: Performed By: #### C ASIF #### [facility] [address] [place] [address] Dr. Gianni Deluna EGFR-AF SAUDI ARABIAN >60 Normal >=60 [facility] Comment on above: Performed By: #### C ASIF #### [facility] [address] [address] [address] Gianni Deluna EGFR-NON AF SAUDI ARABIAN >60 Normal >=60 [facility] Comment on above: Performed By: #### C ASIF #### [facility] [address] [place] [address] CHEST W CONon [...] by: PA CROW Date: 2022-11-11 11:29 Normal [facility] MRI [facility] WO CONon 08-14-20 22 MRI [facility] CON EXAMINATION: [facility] WO CON HISTORY: Cervical radiculopathy COMPARISON: No [...] ANTONI TRACEY Date: 2022-08-14 09:19 Normal [facility] INSULINon 06-04-2022 Insulin 13.5 uIU/mL Normal 2.6-24.9 [facility] Comment on above: Performed By: #### L ACT #### [facility] [address] [place] [address] Dr. Gianni Deluna CBC AUTO DIFFon 06-03-2022 BASO # 0.1 103/ul Normal 0.0-0.1 [facility] Comment on above: Performed By: #### L ACT #### [facility] [address] [place] [address] Dr. Gianni Deluna Basophils/100 WBC (Bld) 1.2 % Normal 0.2-2.0 [facility] Comment on above: Performed By: #### L ACT #### [facility] [address] [place] [address] Dr. Gianni Deluna EO # 0.4 103/ul Normal 0.0-0.7 [facility] Comment on above: Performed By: #### L ACT #### [facility] [address] [place] [address] Dr. Gianni Deluna Eosinophils/100 WBC (Bld) 5.9 % Normal 0.9-7.0 [facility] Comment on above: Performed By: #### L ACT #### [facility] [address] [place] [address] Dr. Gianni Deluna Erythrocyte distribution width (RBC) [Ratio] 13.4 % Normal 11.0-15.0 [facility] Comment on above: Performed By: #### L ACT #### [facility] [address] [place] [address] Dr. Gianni Deluna Hematocrit (Bld) [Volume fraction] 39.6 % Critically low 42.0-54.0 [facility] Comment on above: Performed By: #### L ACT #### [facility] [address] [place] [address] Dr. Gianni Deluna Hemoglobin (Bld) [Mass/Vol] 12.8 g/dL Critically low 14.0-18.0 [facility] Comment on above: Performed By: #### L ACT #### [facility] [address] [address] [address] Gianni Deluna IG # 0.04 10e3/ul Critically high 0.00-0.03 [facility] Comment on above: Performed By: #### L ACT #### [facility] [address] [place] [address] Dr. Gianni Deluna IG % 0.7 % Critically high 0.0-0.5 [facility] Comment on above: Performed By: #### L ACT #### [facility] [address] [place] [address] Dr. Gianni Deluna LYMPH # 1.9 103/ul Normal 1.2-3.8 [facility] Comment on above: Performed By: #### L ACT #### [facility] [address] [place] [address] Dr. Gianni Deluna Lymphocytes/100 WBC (Bld) 31.7 % Normal 20.5-60.0 [facility] Comment on above: Performed By: #### L ACT #### [facility] [address] [place] [address] Dr. Gianni Deluna MANUAL DIFF REQ NO Normal [facility] Comment on above: Performed By: #### L ACT #### [facility] [address] [place] [address] Dr. Gianni Deluna MCH (RBC) [Entitic mass] 30.2 pg Normal 25.9-34.0 [facility] Comment on above: Performed By: #### L ACT #### [facility] [address] [place] [address] Dr. Gianni Deluna MCHC (RBC) [Mass/Vol] 32.3 g/dL Normal 29.9-35.2 [facility] Comment on above: Performed By: #### L ACT #### [facility] [address] [place] [address] Dr. Gianni Deluna MCV (RBC) [Entitic vol] 93.4 fL Normal 80.0-94.0 [facility] Comment on above: Performed By: #### L ACT #### [facility] [address] [place] [address] Dr. Gianni Deluna MONO # 0.7 103/ul Normal 0.3-0.8 [facility] Comment on above: Performed By: #### L ACT #### [facility] [address] [place] [address] Dr. Gianni Deluna Monocytes/100 WBC (Bld) 11.9 % Normal 1.7-12.0 [facility] Comment on above: Performed By: #### L ACT #### [facility] [address] [place] [address] Dr. Gianni Deluna NEUT # 2.9 103/ul Normal 1.4-6.5 [facility] Comment on above: Performed By: #### L ACT #### [facility] [address] [place] [address] Dr. Gianni Deluna Neutrophils/100 WBC (Bld) 48.6 % Normal 43.0-75.0 [facility] Comment on above: Performed By: #### L ACT #### [facility] [address] [place] [address] Dr. Gianni Deluna Platelet mean volume (Bld) [Entitic vol] 9.1 fL Critically low 9.5-13.5 [facility] Comment on above: Performed By: #### L ACT #### [facility] [address] [place] [address] Dr. Gianni Deluna PLT 168 103/ul Normal 150-450 [facility] Comment on above: Performed By: #### L ACT #### [facility] [address] [place] [address] Dr. Gianni Deluna RBC 4.24 106/ul Critically low 4.70-6.10 [facility] Comment on above: Performed By: #### L ACT #### [facility] [address] [address] [address] Gianni Deluna WBC 6.0 103/ul Normal 4.0-11.0 [facility] Comment on above: Performed By: #### L ACT #### [facility] [address] [address] [address] Gianni Deluna FREE THYROXINE INDEX T7on FTI 1.91 Normal 1.30-4.50 [facility] Comment on above: Performed By: #### L ACT #### [facility] [address] [address] [address] Gianni Deluna T3U 36.0 % Normal 33.0-40.0 [facility] Comment on above: Performed By: #### L ACT #### [facility] [address] [place] [address] Dr. Gianni Deluna T4 [Mass/Vol] 5.30 ug/dL Normal 4.50-12.10 [facility] Comment on above: Performed By: #### L ACT #### [facility] [address] [address] [address] Gianni Deluna GLYCOHEMOGLOBIN A1Con 2021 ADA RECOMMENDATION SEE BELOW Normal [facility] Comment on above: Result Comment: ADA RECOMMENDED LIMIT 4.0 - 6.0 ADA THERAPEUTIC TARGET < 7.0 ACTION SUGGESTED > 7.0 Performed By: #### D DIM #### [facility] [address] [address] [address] Gianni Deluna Glucose [Mass/Vol] 140 mg/dL Normal The [facility] Comment on above: Performed By: #### D DIM #### [facility] [address] [place] [address] Dr. Gianni Deluna HbA1c (Bld) [Mass fraction] 6.5 % Critically high 4.5-6.2 [facility] Comment on above: Performed By: #### D DIM #### [facility] [address] [place] [address] Dr. Gianni Deluna LIPID PROFILEon 06-03-2022 CHOL-HDL RATIO NORM SEE BELOW Normal [facility] Comment on above: Result Comment: 3.3 - 4.4 LOW RISK 4.4 - 7.1 AVERAGE RISK 7.1 - 11.0 MODERATE RISK >11.0 HIGH RISK Performed By: #### T SH, T7, URIC, CMP, LIPID #### [facility] [address] [address] [address] Gianni Deluna Cholesterol [Mass/Vol] 104 mg/dL Normal <=200 [facility] Comment on above: Performed By: #### T SH, T7, URIC, CMP, LIPID #### [facility] [address] [address] [address] Gianni Deluna Cholesterol in HDL [Mass/Vol] 49 mg/dL Normal 40-60 [facility] Comment on above: Performed By: #### T SH, T7, URIC, CMP, LIPID #### [facility] [address] [address] [address] Gianni Deluna Cholesterol in LDL [Mass/Vol] 46.6 mg/dL Normal [facility] Comment on above: Performed By: #### T SH, T7, URIC, CMP, LIPID #### [facility] [address] [address] [address] Gianni Deluna Cholesterol.total/Ch olesterol in HDL [Mass ratio] 2.1 {ratio} Normal [facility] Comment on above: Performed By: #### T SH, T7, URIC, CMP, LIPID #### [facility] [address] [address] [address] Gianni Deluna HDL NORMAL > or = 60 mg/dl - LO W CARDIOVASCULAR RISK <40 mg/dl - HIGH CARDIOVASCULAR RISK Normal [facility] Comment on above: Performed By: #### T SH, T7, URIC, CMP, LIPID #### [facility] [address] [place] [address] Dr. Gianni Deluna LDL CALC NORMAL SEE BELOW Normal [facility] Comment on above: Result Comment: <100 mg/dl OPTIMAL 100 - 129 mg/dl NEAR OR ABOVE OPTIMAL 130 - 159 mg/dl BORDERLINE HIGH 160 - 189 mg/dl HIGH >190 mg/dl VERY HIGH Performed By: #### T SH, T7, URIC, CMP, LIPID #### [facility] [address] [address] [address] Gianni Deluna Triglyceride [Mass/Vol] 42 mg/dL Normal <=150 [facility] Comment on above: Performed By: #### T SH, T7, URIC, CMP, LIPID #### [facility] [address] [address] [address] Gianni Deluna VLDL CALC 8.4 mg/dL Normal [facility] Comment on above: Performed By: #### T SH, T7, URIC, CMP, LIPID #### [facility] [address] [address] [address] Gianni Deluna PROF 14(COMP METB)on 022 Albumin [Mass/Vol] 2.9 g/dL Critically low 3.4-5.0 Th e [facility] Comment on above: Performed By: #### T SH, T7, URIC, CMP, LIPID #### [facility] [address] [place] [address] Dr. Gianni Deluna Albumin/Globulin [Mass ratio] 0.8 {ratio} Normal [facility] Comment on above: Performed By: #### T SH, T7, URIC, CMP, LIPID #### [facility] [address] [place] [address] Dr. Gianni Deluna ALP [Catalytic activity/Vol] 127 U/L Critically high 46-116 [facility] Comment on above: Performed By: #### T SH, T7, URIC, CMP, LIPID #### [facility] [address] [place] [address] Dr. Gianni Deluna ALT [Catalytic activity/Vol] 23 U/L Normal 16-63 [facility] Comment on above: Performed By: #### T SH, T7, URIC, CMP, LIPID #### [facility] [address] [place] [address] Dr. Gianni Deluna Anion gap [Moles/Vol] 8.4 mmol/L Normal [facility] Comment on above: Performed By: #### T SH, T7, URIC, CMP, LIPID #### [facility] [address] [place] [address] Dr. Gianni Deluna AST [Catalytic activity/Vol] 21 U/L Normal 15-37 [facility] Comment on above: Performed By: #### T SH, T7, URIC, CMP, LIPID #### [facility] [address] [address] [address] Gianni Deluna Bilirubin [Mass/Vol] 0.5 mg/dL Normal 0.2-1.0 [facility] Comment on above: Performed By: #### T SH, T7, URIC, CMP, LIPID #### [facility] [address] [place] [address] Dr. Gianni Deluna Calcium [Mass/Vol] 8.3 mg/dL Critically low 8.5-10.1 Th [facility] Comment on above: Performed By: #### T SH, T7, URIC, CMP, LIPID #### [facility] [address] [place] [address] Dr. Gianni Deluna Chloride [Moles/Vol] 107 mmol/L Normal 98-107 [facility] Comment on above: Performed By: #### T SH, T7, URIC, CMP, LIPID #### [facility] [address] [place] [address] Dr. Gianni Deluna CO2 [Moles/Vol] 30.6 mmol/L Normal 21.0-32.0 [facility] Comment on above: Performed By: #### T SH, T7, URIC, CMP, LIPID #### [facility] [address] [place] [address] Dr. Gianni Deluna Creatinine [Mass/Vol] 0.93 mg/dL Normal 0.70-1.30 [facility] Comment on above: Performed By: #### T SH, T7, URIC, CMP, LIPID #### [facility] [address] [place] [address] Dr. Gianni Deluna EGFR-AF SAUDI ARABIAN >60 Normal >=60 [facility] Comment on above: Performed By: #### T SH, T7, URIC, CMP, LIPID #### [facility] [address] [place] [address] Dr. Gianni Deluna EGFR-NON AF SAUDI ARABIAN >60 Normal >=60 [facility] Comment on above: Performed By: #### T SH, T7, URIC, CMP, LIPID #### [facility] [address] [address] [address] Gianni Deluna Globulin (S) [Mass/Vol] 3.5 g/dL Normal [facility] Comment on above: Performed By: #### T SH, T7, URIC, CMP, LIPID #### [facility] [address] [address] [address] Gianni Deluna Glucose [Mass/Vol] 114 mg/dL Critically high 74-106 [facility] Comment on above: Performed By: #### T SH, T7, URIC, CMP, LIPID #### [facility] [address] [place] [address] Dr. Gianni Deluna Potassium [Moles/Vol] 4.0 mmol/L Normal 3.5-5.1 [facility] Comment on above: Performed By: #### T SH, T7, URIC, CMP, LIPID #### [facility] [address] [address] [address] Gianni Deluna Protein [Mass/Vol] 6.4 g/dL Normal 6.4-8.2 The [facility] Comment on above: Performed By: #### T SH, T7, URIC, CMP, LIPID #### [facility] [address] [place] [address] Dr. Gianni Deluna Sodium [Moles/Vol] 142 mmol/L Normal 136-145 The [facility] Comment on above: Performed By: #### T SH, T7, URIC, CMP, LIPID #### [facility] [address] [place] [address] Dr. Gianni Deluna Urea nitrogen [Mass/Vol] 11.0 mg/dL Normal 7.0-18.0 [facility] Comment on above: Performed By: #### T SH, T7, URIC, CMP, LIPID #### [facility] [address] [place] [address] Dr. Gianni Deluna Urea nitrogen/Creatinine [Mass ratio] 11.8 mg/mg Normal [facility] Comment on above: Performed By: #### T SH, T7, URIC, CMP, LIPID #### [facility] [address] [address] [address] Gianni Deluna TSHon 06-03-2022 TSH 0.814 uIU/mL Normal 0.358-3.[address] [facility] Comment on above: Performed By: #### L ACT #### [facility] [address] [place] [address] Dr. Gianni Deluna URIC ACID SERUMon 06-03-2022 Urate [Mass/Vol] 5.2 mg/dL Normal 3.5-7.2 [facility] Comment on above: Performed By: #### T SH, T7, URIC, CMP, LIPID #### [facility] [address] [place] [address] Dr. Gianni Deluna CARDIAC ALEX 3-6on 2 CK [Catalytic activity/Vol] 82 U/L Normal 39-308 [facility] Comment on above: Performed By: #### L ACT #### [facility] [address] [place] [address] Dr. Gianni Deluna CK.MB [Mass/Vol] 2.40 ng/mL Normal <=3.60 [facility] Comment on above: Performed By: #### L ACT #### [facility] [address] [place] [address] Dr. Gianni Deluna HSTROP 8.6 pg/mL Normal 4.0-76.1 [facility] Comment on above: Result Comment: CUT- OFF POINTS HAVE BEEN ESTABLISHED BASED ON THE FOURTH UNIVERSAL DEFINITIONS OF MYOCARDIAL INFARCTION. THE UPPER REFERENCE LIMIT (URL) OF TROPONIN, DEFINED THE 99TH PERCENTILE OF cTnI DISTRIBUTION IN A REFERENCE POPULATION, HAS BEEN CONFIRMED THE DECISION THRESHOLD FOR [place] DIAGNOSIS. Performed By: #### L ACT #### [facility] [address] [place] [address] ABD/PELV W CONon 04-21-[address] ABD/PELV W CON EXAMINATION: CT ABD/PELV [...] by: JAIMIE COOPER Date: 2022-04-21 00:38 Normal [facility] LACTATE/LACTIC ACIDon 2021 Lactate [Moles/Vol] 2.2 mmol/L Critically high 0.4-1.9 [facility] Comment on above: Performed By: #### L ACT #### [facility] [address] [address] [address] Gianni Deluna AMYLASEon 04-20-2022 Amylase [Catalytic activity/Vol] 139 U/L Critically high 25-115 [facility] Comment on above: Performed By: #### L ACT #### [facility] [address] [address] [address] Gianni Deluna CARDIAC ALEX ADMITon 022 CK [Catalytic activity/Vol] 88 U/L Normal 39-308 [facility] Comment on above: Performed By: #### C MADM #### [facility] [address] [address] [address] Gianni Deluna CK.MB [Mass/Vol] 1.82 ng/mL Normal <=3.60 [facility] Comment on above: Performed By: #### C MADM #### [facility] [address] [place] [address] Dr. Gianni Deluna HSTROP 7.2 pg/mL Normal 4.0-76.1 [facility] Comment on above: Result Comment: CUT- OFF POINTS HAVE BEEN ESTABLISHED BASED ON THE FOURTH UNIVERSAL DEFINITIONS OF MYOCARDIAL INFARCTION. THE UPPER REFERENCE LIMIT (URL) OF TROPONIN, DEFINED THE 99TH PERCENTILE OF cTnI DISTRIBUTION IN A REFERENCE POPULATION, HAS BEEN CONFIRMED THE DECISION THRESHOLD FOR [place] DIAGNOSIS. Performed By: #### C MADM #### [facility] [address] [place] [address] Dr. Gianni Deluna FILIBERTO 93 ng/mL Normal 16-96 [facility] Comment on above: Performed By: #### C MADM #### [facility] [address] [place] [address] Dr. Gianni Deluna CBC AUTO DIFFon 04-20-2022 BASO # 0.0 103/ul Normal 0.0-0.1 [facility] Comment on above: Performed By: #### C BC #### [facility] [address] [place] [address] Dr. Gianni Deluna Basophils/100 WBC (Bld) 0.3 % Normal 0.2-2.0 [facility] Comment on above: Performed By: #### C BC #### [facility] [address] [place] [address] Dr. Gianni Deluna EO # 0.0 103/ul Normal 0.0-0.7 [facility] Comment on above: Performed By: #### C BC #### [facility] [address] [place] [address] Dr. Gianni Deluna Eosinophils/100 WBC (Bld) 0.1 % Critically low 0.9-7.0 [facility] Comment on above: Performed By: #### C BC #### [facility] [address] [place] [address] Dr. Gianni Deluna Erythrocyte distribution width (RBC) [Ratio] 13.5 % Normal 11.0-15.0 [facility] Comment on above: Performed By: #### C BC #### [facility] [address] [place] [address] Dr. Gianni Deluna Hematocrit (Bld) [Volume fraction] 45.8 % Normal 42.0-54.0 [facility] Comment on above: Performed By: #### C BC #### [facility] [address] [place] [address] Dr. Gianni Deluna Hemoglobin (Bld) [Mass/Vol] 15.3 g/dL Normal 14.0-18.0 [facility] Comment on above: Performed By: #### C BC #### [facility] [address] [place] [address] Dr. Gianni Deluna IG # 0.05 10e3/ul Critically high 0.00-0.03 [facility] Comment on above: Performed By: #### C BC #### [facility] [address] [place] [address] Dr. Gianni Deluna IG % 0.5 % Normal 0.0-0.5 [facility] Comment on above: Performed By: #### C BC #### [facility] [address] [place] [address] Dr. Gianni Deluna LYMPH # 0.8 103/ul Critically low 1.2-3.8 [facility] Comment on above: Performed By: #### C BC #### [facility] [address] [place] [address] Dr. Gianni Deluna Lymphocytes/100 WBC (Bld) 7.7 % Critically low 20.5-60.0 [facility] Comment on above: Performed By: #### C BC #### [facility] [address] [place] [address] Dr. Gianni Deluna MANUAL DIFF REQ NO Normal [facility] Comment on above: Performed By: #### C BC #### [facility] [address] [place] [address] Dr. Gianni Deluna MCH (RBC) [Entitic mass] 30.4 pg Normal 25.9-34.0 [facility] Comment on above: Performed By: #### C BC #### [facility] [address] [place] [address] Dr. Gianni Deluna MCHC (RBC) [Mass/Vol] 33.4 g/dL Normal 29.9-35.2 [facility] Comment on above: Performed By: #### C BC #### [facility] [address] [address] [address] Gianni Deluna MCV (RBC) [Entitic vol] 90.9 fL Normal 80.0-94.0 [facility] Comment on above: Performed By: #### C BC #### [facility] [address] [address] [address] Gianni Deluna MONO # 0.4 103/ul Normal 0.3-0.8 [facility] Comment on above: Performed By: #### C BC #### [facility] [address] [place] [address] Dr. Gianni Deluna Monocytes/100 WBC (Bld) 3.3 % Normal 1.7-12.0 [facility] Comment on above: Performed By: #### C BC #### [facility] [address] [place] [address] Dr. Gianni Deluna NEUT # 9.7 103/ul Critically high 1.4-6.5 [facility] Comment on above: Performed By: #### C BC #### [facility] [address] [place] [address] Dr. Gianni Deluna Neutrophils/100 WBC (Bld) 88.1 % Critically high 43.0-75.0 [facility] Comment on above: Performed By: #### C BC #### [facility] [address] [address] [address] Gianni Deluna Platelet mean volume (Bld) [Entitic vol] 8.9 fL Critically low 9.5-13.5 [facility] Comment on above: Performed By: #### C BC #### [facility] [address] [place] [address] Dr. Gianni Deluna PLT 198 103/ul Normal 150-450 [facility] Comment on above: Performed By: #### C BC #### [facility] [address] [place] [address] Dr. Gianni Deluna RBC 5.04 106/ul Normal 4.70-6.10 [facility] Comment on above: Performed By: #### C BC #### [facility] [address] [place] [address] Dr. Gianni Deluna WBC 11.0 103/ul Normal 4.0-11.0 [facility] Comment on above: Performed By: #### C BC #### [facility] [address] [place] [address] Dr. Gianni Deluna [facility]on SARS-CoV-2 (COVID-19) RNA NICHOLE+probe Ql (Unsp spec) Not detected Normal NOT DETECTED [facility] Comment on above: Result Comment: When diagnostic [...] for this test is supported by the [place] of Health and Human Service's declaration that [...] used). Performed By: #### C VDTBH #### [facility] [address] [place] [address] [address] Gianni Deluna D-DIMERon 04-20-2022 D-DIMER 0.37 mg/L FEU Normal <=0.[address] [facility] Comment on above: Performed By: #### D DIM #### [facility] [address] [place] [address] [address] [address] Gianni Deluna D-DIMER COMMENTS SEE BELOW Normal [facility] Comment on above: Result Comment: Incr eases [...] hospitalization. Performed By: #### D DIM #### [facility] [address] [place] [address] Dr. Gianni Deluna LACTATE/LACTIC ACIDon 2021 Lactate [Moles/Vol] 2.3 mmol/L Critically high 0.4-1.9 [facility] Comment on above: Performed By: #### L ACT #### [facility] [address] [place] [address] Dr. Gianni Deluna LIPASEon 04-20-2022 Lipase [Catalytic activity/Vol] 48.0 U/L Critically low 73.0-393.0 [facility] Comment on above: Performed By: #### L ACT #### [facility] [address] [place] [address] Dr. Gianni Deluna PROF 14(COMP METB)on 022 Albumin [Mass/Vol] 3.9 g/dL Normal 3.4-5.0 [facility] Comment on above: Performed By: #### L ACT #### [facility] [address] [place] [address] Dr. Gianni Deluna Albumin/Globulin [Mass ratio] 1.0 {ratio} Normal [facility] Comment on above: Performed By: #### L ACT #### [facility] [address] [place] [address] Dr. Gianni Deluna ALP [Catalytic activity/Vol] 127 U/L Critically high 46-116 [facility] Comment on above: Performed By: #### L ACT #### [facility] [address] [place] [address] Dr. Gianni Deluna ALT [Catalytic activity/Vol] 27 U/L Normal 16-63 [facility] Comment on above: Performed By: #### L ACT #### [facility] [address] [address] [address] Gianni Deluna Anion gap [Moles/Vol] 15.9 mmol/L Normal [facility] Comment on above: Performed By: #### L ACT #### [facility] [address] [address] [address] Gianni Deluna AST [Catalytic activity/Vol] 27 U/L Normal 15-37 [facility] Comment on above: Performed By: #### L ACT #### [facility] [address] [address] [address] Gianni Deluna Bilirubin [Mass/Vol] 0.9 mg/dL Normal 0.2-1.0 [facility] Comment on above: Performed By: #### L ACT #### [facility] [address] [address] [address] Gianni Deluna Calcium [Mass/Vol] 8.9 mg/dL Normal 8.5-10.1 [facility] Comment on above: Performed By: #### L ACT #### [facility] [address] [address] [address] Gianni Deluna Chloride [Moles/Vol] 103 mmol/L Normal 98-107 [facility] Comment on above: Performed By: #### L ACT #### [facility] [address] [address] [address] Gianni Deluna CO2 [Moles/Vol] 24.2 mmol/L Normal 21.0-32.0 [facility] Comment on above: Performed By: #### L ACT #### [facility] [address] [address] [address] Gianni Deluna Creatinine [Mass/Vol] 1.27 mg/dL Normal 0.70-1.30 [facility] Comment on above: Performed By: #### L ACT #### [facility] [address] [address] [address] Gianni Deluna EGFR-AF SAUDI ARABIAN >60 Normal >=60 [facility] Comment on above: Performed By: #### L ACT #### [facility] [address] [address] [address] Gianni Deluna EGFR-NON AF SAUDI ARABIAN 56 mL/min/1.73m2 Critically low >=60 [facility] Comment on above: Performed By: #### L ACT #### [facility] [address] [address] [address] Gianni Deluna Globulin (S) [Mass/Vol] 3.9 g/dL Normal [facility] Comment on above: Performed By: #### L ACT #### [facility] [address] [address] [address] Gianni Deluna Glucose [Mass/Vol] 145 mg/dL Critically high 74-106 [facility] Comment on above: Performed By: #### L ACT #### [facility] [address] [place] [address] Dr. Gianni Deluna Potassium [Moles/Vol] 4.1 mmol/L Normal 3.5-5.1 [facility] Comment on above: Performed By: #### L ACT #### [facility] [address] [address] [address] Gianni Deluna Protein [Mass/Vol] 7.8 g/dL Normal 6.4-8.2 [facility] Comment on above: Performed By: #### L ACT #### [facility] [address] [place] [address] Dr. Gianni Deluna Sodium [Moles/Vol] 139 mmol/L Normal 136-145 [facility] Comment on above: Performed By: #### L ACT #### [facility] [address] [address] [address] Gianni Deluna Urea nitrogen [Mass/Vol] 22.0 mg/dL Critically high 7.0-18.0 [facility] Comment on above: Performed By: #### L ACT #### [facility] [address] [place] [address] Dr. Gianni Deluna Urea nitrogen/Creatinine [Mass ratio] 17.3 mg/mg Normal [facility] Comment on above: Performed By: #### L ACT #### [facility] [address] [address] [address] Gianni Deluna XR ABD FLAT UP_PA Graciela 09-04 -2022 XR ABD FLAT UP_PA CH XR ABD [...] by: JAIMIE COOPER Date: 2022-04-20 21:58 Normal [facility] US RICHELLE DOP LEG LTon 03-18-20 [...] by: LAWANDA VEE Date: 2022-03-18 13:25 Normal [facility] US RICHELLE DOP LEG LTon 12-08-19 [...] ANTONI JOLLEY Date: 2021-12-06 22:57 Normal [facility] Encounters Encounter Date Encounter Type Care Provider Facility Start: 08-31-2023 End: 09-01-2023 ambulatory Stefany Ballard MD Facility:[facility] Start: 07-17-2023 ambulatory Evens rAcher MD Facility:[facility] Start: 07-08-2023 End: 07-08-2023 ambulatory [facility] Start: 06-29-2023 End: 06-29-2023 ambulatory [facility] Start: 06-29-2023 End: 06-29-2023 Encounter for other preprocedural examination [facility] Start: 06-17-2023 Encounter for other preprocedural examination [facility] Start: 05-20-2023 End: 05-20-2023 ambulatory [facility] Start: 05-13-2023 End: 05-14-2023 ambulatory Pramod HAYWARD Facility[facility] Start: 05-08-2023 ambulatory Pramod HAYWARD [facility] Start: 04-29-2023 ambulatory Pramod HAYWARD [facility] Start: 11-13-2022 End: 11-14-[address] EVENS ARCHER . Facility:[facility] Start: 11-11-2022 End: 11-12-[address] EVENS ARCHER . Facility:[facility] Start: 08-13-2022 End: 08-14-[address] EVENS ARCHER . Facility:[facility] Start: 08-04-[address] EVNES ARCHER . Facili ty:[facility] Start: 06-03-2022 End: 06-04-[address] EVENS ARCHER . Facility:[facility] Start: 04-20-2022 End: 04-21-[address] EVENS ARCHER . Facility:[facility] Start: 03-18-2022 End: 03-19-[address] EVENS ARCHER . Facility:[facility] Start: 12-06-2021 End: 12-07-[address] EVENS ARCHER . Facility:[facility] Procedures Date Procedure Procedure Detail Performing Clinician Start: 06-03-[address] FRANCO ARCHER . Comment on above: Performed By: #### P [facility] #### [facility] [address] [place] [address] Dr. Gianni Deluna Payers Date Payer Category Payer Unknown 2014 Unknown [id number] 1959 Self-pay [id number] 1959 Unknown [id number] 1954 Unknown [id number] 2.16.84 [id number] 1954 Unknown [id number] 2.16.84 [id number] 1954 Unknown [id number] 2.16.84 [id number] 1954 Unknown [id number] 2.16.84 0.1.101382.3.579.2.59 1954 Unknown [id number] 2.16.84 0.1.958437.3.579.2.59 1954 Unknown [id number] 2.16.84 0.1.401434.3.579.2.59 1954 Unknown [id number] 2.16.84 0.1.307837.3.579.2.593 1954 Unknown [id number] 2.16.84 0.1.713205.3.579.2.59 1954 Unknown [id number] 2.16.8 [id number] 1954 Unknown [id number] 2.16.8 [id number] 1954 Unknown [id number] 2.16.8 [id number] 1954 Unknown [id number] 2.16. [id number] Progress note 07-08-2023 Note Date & Type Note Facility 07-08-2023 Note [facility] SUBJECTIVE Chief Complaint Patient presents with Edema Donnie Detnon is a 68 y.o. male here for [...] Final Atrial Rate 06/29/2023 47 BPM Final [place] Interval 06/29/2023 154 ms Final QRS DURATION 06/29/2023 82 ms Final QT Interval 06/29/2023 482 ms Final QTC CALCULATION(BAZETT) 06/29/2023 426 ms Final P [place] 06/29/2023 16 degrees Final R-[place] 06/29/2023 55 degrees Final T Wave [place] 06/29/2023 41 degrees Final No results found for: EXTCMP, BMPR1A, CBCDIF, BNP, BNP, LASAP, RED Testing/Procedures: No echocardiogram results found for the past 14 days No echocardiogram results found for the past 12 months Encounter Date: 06/29/23 ECG 12 lead Result Value Ventricular Rate 47 Atrial Rate 47 [place] Interval 154 QR (more content not included)... [facility] Progress note 07-08-2023 Note Date & [...] All other systems reviewed and are negative. [facility] Progress note 06-29-2023 Note Date & [...] inhibitor Follow-up with Dr. Soto in the [place] office in the next 2 to 4 weeks PROCEDURES: Ultrasound-guided access to the right common femoral artery, limited femoral angiography, ultrasound-guided access to the right common femoral vein, right heart catheterization, bilateral selective coronary angiography, placement of a 6 Yemeni Mynx porcelain enameler closure device METHODS: After risks, benefits, and [...] micropuncture kit was upsized to a 6 Yemeni 11 cm sheath. Angiography via the sheath [...] procedure. All catheters were removed. A 5 [place]i Mynx closure device was deployed per protocol to achieve hemostasis. The venous sheath was to be removed with application of manual pressure to achieve optimal hemostasis. Overall the patient tolerated the procedure well. There were no overt complications. He was to be transferred to the [facility] area in stable condition. FINDINGS: Hemodynamics: RA [...] device. INDICATIONS: Preoperative evaluation, coronary artery disease. [facility] Progress note 05-20-2023 Note Date & Type Note Facility 05-20-2023 Note [facility] Card[facility] Clinic Note Chief Complaint: New patient here to establish care. Ref from Dr. Archer for surgery clearance. He has hx of CAD and previously followed with [facility] back in 2014. He has upcoming [...] percutaneous revascularization. He was evaluated at the [facility] and [facility]. It was elected to continue [...] and a reasonable target. Was seen at [facility]; single-vessel coronary artery disease with a preserved [...] LAD. This wo (more content not included)... [facility] Clinical Note 05-13-2023 Note Date & [...] 10 mg Tab (more content not included)... [facility] Comment on above: Result Comment: Elec tronically [...] section and content) DATE CREATED AUTHOR 11/21/2022 Nava Robb [facility] DATE CREATED AUTHOR AUTHOR'S ORGANIZ ATION 05/21/2023 [facility] DATE CREATED AUTHOR AUTHOR'S ORGANIZ ATION 07/10/2023 [facility] DATE CREATED AUTHOR AUTHOR'S ORGANIZ ATION 09/09/2023 [facility] FOR RECORDS PERTAINING TO PATIENTS WHO [...] BE BASED ON THE PRIMARY CLINICAL RECORDS. [facility] [employer] [facility]. provides no warranty or guarantee of the accuracy or completeness of information in this document.
--- NOTE | 2023-09-10 14:22 | P.CN_ITS ---
Consult Note: HPI Data of Consult Patient: known to practice within the last 3 years Consult date: 08/06/23 Requesting Physician: Nat Benedict NP Primary Care Provider: Eriberto Archer MD Consult Narrative Reason for consult: chronic low back pain Narrative: Donnie Denton a pleasant 68 year old male presents for evaluation and management of chronic lumbar pain with radiculopathy. Patient has a history of lumbar pain with radiculopathy that was responsive to NSAIDs and PT, however over the last 6 weeks he has been unable to ambulate without a walker and is finding little to no benefit from medications, PT and HEP makes his pain worse. Patient reporting pain 3/10 today in right low back radiating into buttock, describes this as a sharp pain. Patient reports decrease in shooting pain and weakness with recent right L4-5 L5-S1 TFESI. Patient reporting 50% improvement ongoing, initially felt >80% improvement but with cold damp weather his pain has worsened. cc:: CC: Nat Benedict NP Review of Systems ROS Status of ROS 10 or more systems reviewed and unremark able except as noted in history and below Musculoskeletal Reports: back pain PFSH PFSH Medical History (Updated 09/10/23 @ 14:34 by Nat Benedict NP) Hypothyroid ?E03.9 - Hypothyroidism, unspecified (ICD-10) Thrombosis ?I82.90 - Acute embolism and thrombosis of unspecified vein (ICD-10) History of angina ?Z86.79 - Personal history of other diseases of the circulatory system (ICD- 10) Hypertension ?I10 - Essential (primary) hypertension (ICD-10) Surgical History History of fusion of cervical spine ?Z98.1 - Arthrodesis status (ICD-10) History of appendectomy ?Z90.49 - Acquired absence of other specified parts of digestive tract (ICD- 10) Hx of tonsillectomy ?Z90.89 - Acquired absence of other organs (ICD-10) Meds Home Medications and Allergies Home Medications Medication Instructions Recorded Confirmed Type aspirin 325 mg tablet 325 mg PO DAILY 08/06/23 08/31/23 History atorvastatin 40 mg tablet 40 mg PO DAILY 08/06/23 08/31/23 History carvedilol 25 mg tablet 25 mg PO Q12H 08/06/23 08/31/23 History ferrous sulfate 325 mg (65 mg 325 mg PO DAILY 08/06/23 08/31/23 History iron) tablet (Feosol) furosemide 20 mg tablet 20 mg PO DAILY PRN edema 08/06/23 08/31/23 History lansoprazole 15 mg delayed 15 mg PO Q12H 08/06/23 08/31/23 History release,disintegrating tablet levothyroxine 50 mcg tablet 50 mcg PO QDAY 08/06/23 08/31/23 History (Synthroid) nitroglycerin 0.4 mg sublingual 0.4 mg sublingual Q5M 08/06/23 08/31/23 History tablet ranolazine 500 mg tablet,extended 500 mg PO Q12H 08/06/23 08/31/23 History release,12 hr tizanidine 4 mg tablet 4 mg PO BEDTIME 08/06/23 08/31/23 History zolpidem 10 mg tablet 10 mg PO QDAY 08/06/23 08/31/23 History celecoxib 100 mg capsule 100 mg PO Q12H 08/31/23 08/31/23 History Allergies Allergy/AdvReac Type Severity Reaction Status Date / Time Penicillins Allergy Verified 08/31/23 08:28 Exam Constitutional Documenting provider has reviewed patient's vital signs: yes Common normals: no apparent distress, oriented x3, healthy appearing, alert and well nourished General appearance: cooperative HENSD Common normals: normocephalic, hearing grossly normal bilaterally and moist oral mucous membranes Head and scalp: normocephalic Eye Common normals: PERRL Pupil: PERRL Neck & C-Spine Common normals: full ROM General: normal visual inspection Chest Common normals: inspection of chest normal Respiratory Common normals: normal respiratory effort, no retractions and no use of accessory muscles Back & Pelvis Lumbar spine/lower back: ROM limited, pain with ROM and straight leg raise negative bilaterally Other: bilateral facet loading right greater than left no radicular symptoms on exam strength 5/5 in BLE Extremity Common normals: normal to inspection and full ROM Neuro Common normals: oriented x3, CN's II-XII intact bilaterally, moves all extremities, no focal motor deficits, no sensory deficits noted, deep tendon reflexes 2+ bilaterally and gait normal Sensorium/orientation: alert Gait (neuro): assistive device used (walker) Motor exam: strength 5/5 throughout and no movement abnormalities noted Psych Common normals: mental status grossly normal, thought process normal, cooperative, affect normal, speech normal and activity/motor behavior normal Speech: normal speech Thought process: normal thought process Assessment and Plan Assessment and Plan (1) Lumbar radiculopathy: Assessment and Plan: resolved (2) Lumbar spondylosis: Assessment and Plan: The patient has had over 3 months of moderate to severe low back pain with functional impairment and inadequate response to conservative care including NSAIDS (unless there are contraindication such as concurrent blood thinners), multiple oral or topical pain medications, and home exercise program/physical therapy.? Patient has completed >6 weeks of guided home exercise program and/or formal physical therapy program without relief of their symptoms.? I have reviewed the imaging of the lumbar spine and no red flags were identified.? The imaging reveals radiographic findings consistent with lumbar spondylosis We discussed the risks and benefits of the procedure with the patient, and we are NOT planning on using sedation as outlined in the guidelines from Medicare unless there is a documented reason that sedation would be strongly recommended.?? The procedure will be completed with fluoroscopic guidance.? (3) Myofascial pain: Plan bilateral L4-5 L5-S1 facet medial branch block x2 working towards thermal RFA for lumbar spondylosis, predominately axial low back pain worse on right than left continue current medications, tolerating well without side effect f/u 1 week post procedure
== END 2023-09-10 13:55 | disposition home or self-care (01) ==
LOC: PM 13:54
PROVIDERS: PCP Family Medicine; Visit Provider Nurse Practitioner
DX: M47.26 Other spondylosis with radiculopathy, lumbar region (principal); M79.18 Myalgia, other site
CPT/HCPCS: G0463

== ENCOUNTER 2023-09-21 07:26 | Day surgery (SDC) | payer MEDICARE, SELFPAY ==
--- OUTSIDE RECORDS SUMMARY | 2023-09-21 07:29 | XMS_ITS | CCD ---
Author Name Unknown Address [address] [place] [address] Organization [facility] Care Team Providers Care Search Engine Optimization Specialist Name Role Phone MADAIY ., DR HORNER Admitting Unavailable HOY ., [...] Primary Care Unavailable HOY ., DR HORNER Admluke Unavailable HOY ., DR HORNER Attending Unavailable [...] Penicillins; 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: [penicillins] Drug allergy (disorder) 10-25-2014 [facility] Repository (2 sources) HYDROcodone; 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: [HYDROcodone] Drug Allergy 10-25-2014 [facility] Repository (1 source) nabumetone; 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: [Relafen] Drug Allergy [facility] Repository (1 source) amLODIPine; 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: [AMLODIPINE] Drug Allergy 05-20-2023 [facility] Repository (1 source) nabumetone; 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: [NABUMETONE] Drug Allergy 10-25-2014 [facility] Repository Problems Active Problems Problem Classification Problem Date Documented Date Episodic/Chronic Coronary atherosclerosis and other heart disease (3 sources) Atherosclerotic heart disease of [place] coronary artery without angina pectoris; 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: [Unstable [...] Onset: 04-24-2022 Episodic Other aftercare (1 source) 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; 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: [GROUP HOME CURRENT USE OF ASPIRIN] Onset: 04-24-2022 Episodic [...] then as needed *Limit salt/sodium intake Normal [facility] Office Visiton 07-08-2023 Follow-up visit [id number] Chung Denton 1955 M Date Provider Department Center 07/08/2023 [facility] Family History Problem Relation Age of Onset Heart attack Paternal Grandfather Family Status - Relation Status Age at Paternal Grandfather Level of Service:71345 [place] OFFICE/OUTPATIENT ESTABLISHED MOD [facility] 30-39 MIN Reason for Visit and Comments: Edema [[id number]] Normal [facility] ANESon 06-29-2023 ANES -- Attestation signed by Eliane Soto MD at 06/29/2023 9:56 AM Eliane Soto MD, MPH, [facility], [facility], [facility] Interventional Cardiology Pager Email: [email or web address] Patient: Donnie Denton Procedure Information Date/Time: 06/29/23 1030 Procedures: Coronary angiography (Bilateral) - per Maria G in pre-cert at [facility], this has already been authorized thru Aug 2023 - right femoral approach Right heart cath Location: [facility] 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 Additional Equipment Requests Normal [facility] HPon 06-29-2023 HP -- Attestation signed by Eliane Soto MD at 06/29/2023 9:57 AM Eliane Soto MD, MPH, [facility], [facility], [facility] Interventional Cardiology Pager Email: [email or web address] History Of Present Illness Donnie [...] He was evaluated by cardiothoracic surgery at [facility] and elected to pursue medical management at [...] treated since 2015. Meaghan Mukherjee DO, MPH Palliative Care Physician [facility] Nabila 06-29-2023 KIERA RN educated pt on d/ c instructions. RN encouraged pt to voice any questions or concerns. Pt verbalizes no questions or concerns at this time. [facility] Orders Onlyon 06-17-2023 Orders Only [id number] Chung Denton 1955 M Date Provider Department Center 06/17/2023 Kristopher8-DEIRDRE RIDLEY CARD [facility] Family History Problem Relation Age of Onset Heart attack Paternal Grandfather Family Status - Relation Status Age at Paternal Grandfather Normal [facility] Letter (Out)on 05-26-2023 Letter (Out) [id number] Chung Denton bee R 1955 [facility] Provider Department Center 05/26/2023 None-None [facility] AUTH [facility] Family History Problem Relation Age of Onset Heart attack Paternal Grandfather Family Status - Relation Status Age at Paternal Grandfather Normal [facility] Office Visiton 05-20-2023 Follow-up visit [id number] BertinChung gamboa R 1955 [facility] Provider Department Center 05/20/2023 Richa-ELIANE SOTO VALERIANO [facility] Family History Problem Relation Age of Onset Heart attack Paternal Grandfather Family Status - Relation Status Age at Paternal Grandfather Level of Service:[id number] [place] OFFICE/OUTPATIENT [facility] 60-74 MINUTES Normal [facility] Orders Onlyon 05-20-2023 Orders Only [id number] BertinChung Campbell 1955 [facility] Provider Department Center 05/20/2023 Jason5-HIMANSHU MCMILLAN VALERIANO [facility] Family History Problem Relation Age of Onset Heart attack Paternal Grandfather Family Status - Relation Status Age at Paternal Grandfather Normal [facility] Facesheeton 05-14-2023 Facesheet [id number] D:127 Normal [facility] Ambulatory Visit Summaryon 0 05-13-2023 Ambulatory [...] Spondylosis of cervical spine Ureteral calculus Normal [facility] Physician Referralon 023 Physician Referral [id number] 04 [id number] CD:127 Normal [facility] XR HIP RT 2 3V W [...] ANTONI PENALOZA Date: 2022-11-13 22:38 Normal [facility] XR LSPINE MIN 4 VIEWSon 10-17 [...] paraspinous abnormality is seen. OTHER: Negative. IMPRESSION: [id number] degenerative changes Electronically authenticated by: ANTONI TRACEY Date: 2022-11-14 07:58 Normal [facility] CREATININEon 11-11-2022 Creatinine [Mass/Vol] 1.04 mg/dL Normal 0.70-1.30 [facility] Comment on above: Performed By: #### C ASIF #### [facility] [address] [place] [address] Dr. Gianni Deluna EGFR-AF ALGERIAN >60 Normal >=60 [facility] Comment on above: Performed By: #### C ASIF #### [facility] [address] [address] [address] Gianni Deluna EGFR-NON AF ALGERIAN >60 Normal >=60 [facility] Comment on above: Performed By: #### C ASIF #### [facility] [address] [place] [address] CHEST W CONon [...] by: PA CROW Date: 2022-11-11 11:29 Normal [facility] MRI [facility] WO CONon 08-14-20 22 MRI [facility] CON EXAMINATION: MRI CSPINE WO CON HISTORY: Cervical radiculopathy COMPARISON: No [...] ANTONI TRACEY Date: 2022-08-14 09:19 Normal [facility] INSULINon 06-04-2022 Insulin 13.5 uIU/mL Normal 2.6-24.9 [facility] Comment on above: Performed By: #### L ACT #### [facility] [address] [place] [address] Dr. Gianni Deluna CBC AUTO DIFFon 06-03-2022 BASO # 0.1 103/ul Normal 0.0-0.1 [facility] Comment on above: Performed By: #### L ACT #### [facility] [address] [place] [address] Dr. Gianni Deluna Basophils/100 WBC (Bld) 1.2 % Normal 0.2-2.0 [facility] Comment on above: Performed By: #### L ACT #### [facility] [address] [place] [address] Dr. Gianni Deluna EO # 0.4 103/ul Normal 0.0-0.7 [facility] Comment on above: Performed By: #### L ACT #### [facility] [address] [place] [address] Dr. Gianni Deluna Eosinophils/100 WBC (Bld) 5.9 % Normal 0.9-7.0 [facility] Comment on above: Performed By: #### L ACT #### [facility] [address] [place] [address] Dr. Gianni Deluna Erythrocyte distribution width (RBC) [Ratio] 13.4 % Normal 11.0-15.0 [facility] Comment on above: Performed By: #### L ACT #### [facility] [address] [place] [address] Dr. Gianni Deluna Hematocrit (Bld) [Volume fraction] 39.6 % Critically low 42.0-54.0 [facility] Comment on above: Performed By: #### L ACT #### [facility] [address] [place] [address] Dr. Gianni Deluna Hemoglobin (Bld) [Mass/Vol] 12.8 g/dL Critically low 14.0-18.0 [facility] Comment on above: Performed By: #### L ACT #### [facility] [address] [place] [address] Dr. Gianni Deluna IG # 0.04 10e3/ul Critically high 0.00-0.03 [facility] Comment on above: Performed By: #### L ACT #### [facility] [address] [place] [address] Dr. Gianni Deluna IG % 0.7 % Critically high 0.0-0.5 [facility] Comment on above: Performed By: #### L ACT #### [facility] [address] [place] [address] Dr. Gianni Deluna LYMPH # 1.9 103/ul Normal 1.2-3.8 [facility] Comment on above: Performed By: #### L ACT #### [facility] [address] [place] [address] Dr. Gianni Deluna Lymphocytes/100 WBC (Bld) 31.7 % Normal 20.5-60.0 [facility] Comment on above: Performed By: #### L ACT #### [facility] [address] [place] [address] Dr. Gianni Deluna MANUAL DIFF REQ NO Normal [facility] Comment on above: Performed By: #### L ACT #### [facility] [address] [place] [address] Dr. Gianni Deluna MCH (RBC) [Entitic mass] 30.2 pg Normal 25.9-34.0 [facility] Comment on above: Performed By: #### L ACT #### [facility] [address] [place] [address] Dr. Gianni Deluna MCHC (RBC) [Mass/Vol] 32.3 g/dL Normal 29.9-35.2 [facility] Comment on above: Performed By: #### L ACT #### [facility] [address] [place] [address] Dr. Gianni Deluna MCV (RBC) [Entitic vol] 93.4 fL Normal 80.0-94.0 [facility] Comment on above: Performed By: #### L ACT #### [facility] [address] [place] [address] Dr. Gianni Deluna MONO # 0.7 103/ul Normal 0.3-0.8 [facility] Comment on above: Performed By: #### L ACT #### [facility] [address] [place] [address] Dr. Gianni Deluna Monocytes/100 WBC (Bld) 11.9 % Normal 1.7-12.0 [facility] Comment on above: Performed By: #### L ACT #### [facility] [address] [place] [address] Dr. Gianni Deluna NEUT # 2.9 103/ul Normal 1.4-6.5 [facility] Comment on above: Performed By: #### L ACT #### [facility] [address] [place] [address] Dr. Gianni Deluna Neutrophils/100 WBC (Bld) 48.6 % Normal 43.0-75.0 [facility] Comment on above: Performed By: #### L ACT #### [facility] [address] [place] [address] Dr. Gianni Deluna Platelet mean volume (Bld) [Entitic vol] 9.1 fL Critically low 9.5-13.5 [facility] Comment on above: Performed By: #### L ACT #### [facility] [address] [place] [address] Dr. Gianni Deluna PLT 168 103/ul Normal 150-450 [facility] Comment on above: Performed By: #### L ACT #### [facility] [address] [place] [address] Dr. Gianni Deluna RBC 4.24 106/ul Critically low 4.70-6.10 [facility] Comment on above: Performed By: #### L ACT #### [facility] [address] [address] [address] Gianni Deluna WBC 6.0 103/ul Normal 4.0-11.0 [facility] Comment on above: Performed By: #### L ACT #### [facility] [address] [address] [address] Gianni Deluna FREE THYROXINE INDEX T7on FTI 1.91 Normal 1.30-4.50 [facility] Comment on above: Performed By: #### L ACT #### [facility] [address] [address] [address] Gianni Deluna T3U 36.0 % Normal 33.0-40.0 [facility] Comment on above: Performed By: #### L ACT #### [facility] [address] [place] [address] Dr. Gianni Deluna T4 [Mass/Vol] 5.30 ug/dL Normal 4.50-12.10 [facility] Comment on above: Performed By: #### L ACT #### [facility] [address] [address] [address] Gianni Deluna GLYCOHEMOGLOBIN A1Con 2021 ADA RECOMMENDATION SEE BELOW Normal [facility] Comment on above: Result Comment: ADA RECOMMENDED LIMIT 4.0 - 6.0 ADA THERAPEUTIC TARGET < 7.0 ACTION SUGGESTED > 7.0 Performed By: #### D DIM #### [facility] [address] [place] [address] Dr. Gianni Deluna Glucose [Mass/Vol] 140 mg/dL Normal [facility] Comment on above: Performed By: #### D DIM #### [facility] [address] [place] [address] Dr. Gianni Deluna HbA1c (Bld) [Mass fraction] 6.5 % Critically high 4.5-6.2 [facility] Comment on above: Performed By: #### D DIM #### [facility] [address] [place] [address] Dr. Gianni Deluna LIPID PROFILEon 06-03-2022 CHOL-HDL RATIO NORM SEE BELOW Normal [facility] Comment on above: Result Comment: 3.3 - 4.4 LOW RISK 4.4 - 7.1 AVERAGE RISK 7.1 - 11.0 MODERATE RISK >11.0 HIGH RISK Performed By: #### T SH, T7, URIC, CMP, LIPID #### [facility] [address] [address] [address] Gianni Deluna Cholesterol [Mass/Vol] 104 mg/dL Normal <=200 [facility] Comment on above: Performed By: #### T SH, T7, URIC, CMP, LIPID #### [facility] [address] [address] [address] Gianni Deluna Cholesterol in HDL [Mass/Vol] 49 mg/dL Normal 40-60 [facility] Comment on above: Performed By: #### T SH, T7, URIC, CMP, LIPID #### [facility] [address] [address] [address] Gianni Deluna Cholesterol in LDL [Mass/Vol] 46.6 mg/dL Normal [facility] Comment on above: Performed By: #### T SH, T7, URIC, CMP, LIPID #### [facility] [address] [address] [address] Gianni Deluna Cholesterol.total/Ch olesterol in HDL [Mass ratio] 2.1 {ratio} Normal [facility] Comment on above: Performed By: #### T SH, T7, URIC, CMP, LIPID #### [facility] [address] [address] [address] Gianni Deluna HDL NORMAL > or = 60 mg/dl - LO W CARDIOVASCULAR RISK <40 mg/dl - HIGH CARDIOVASCULAR RISK Normal [facility] Comment on above: Performed By: #### T SH, T7, URIC, CMP, LIPID #### [facility] [address] [place] [address] Dr. Gianni Deluna LDL CALC NORMAL SEE BELOW Normal [facility] Comment on above: Result Comment: <100 mg/dl OPTIMAL 100 - 129 mg/dl NEAR OR ABOVE OPTIMAL 130 - 159 mg/dl BORDERLINE HIGH 160 - 189 mg/dl HIGH >190 mg/dl VERY HIGH Performed By: #### T SH, T7, URIC, CMP, LIPID #### [facility] [address] [address] [address] Gianni Deluna Triglyceride [Mass/Vol] 42 mg/dL Normal <=150 [facility] Comment on above: Performed By: #### T SH, T7, URIC, CMP, LIPID #### [facility] [address] [address] [address] Gianni Deluna VLDL CALC 8.4 mg/dL Normal [facility] Comment on above: Performed By: #### T SH, T7, URIC, CMP, LIPID #### [facility] [address] [address] [address] Gianni Deluna PROF 14(COMP METB)on 022 Albumin [Mass/Vol] 2.9 g/dL Critically low 3.4-5.0 [facility] Comment on above: Performed By: #### T SH, T7, URIC, CMP, LIPID #### [facility] [address] [place] [address] Dr. Gianni Deluna Albumin/Globulin [Mass ratio] 0.8 {ratio} Normal [facility] Comment on above: Performed By: #### T SH, T7, URIC, CMP, LIPID #### [facility] [address] [place] [address] Dr. Gianni Deluna ALP [Catalytic activity/Vol] 127 U/L Critically high 46-116 [facility] Comment on above: Performed By: #### T SH, T7, URIC, CMP, LIPID #### [facility] [address] [place] [address] Dr. Gianni Deluna ALT [Catalytic activity/Vol] 23 U/L Normal 16-63 [facility] Comment on above: Performed By: #### T SH, T7, URIC, CMP, LIPID #### [facility] [address] [place] [address] Dr. Gianni Deluna Anion gap [Moles/Vol] 8.4 mmol/L Normal [facility] Comment on above: Performed By: #### T SH, T7, URIC, CMP, LIPID #### [facility] [address] [address] [address] Gianni Deluna AST [Catalytic activity/Vol] 21 U/L Normal 15-37 [facility] Comment on above: Performed By: #### T SH, T7, URIC, CMP, LIPID #### [facility] [address] [place] [address] Dr. Gianni Deluna Bilirubin [Mass/Vol] 0.5 mg/dL Normal 0.2-1.0 [facility] Comment on above: Performed By: #### T SH, T7, URIC, CMP, LIPID #### [facility] [address] [place] [address] Dr. Gianni Deluna Calcium [Mass/Vol] 8.3 mg/dL Critically low 8.5-10.1 [facility] Comment on above: Performed By: #### T SH, T7, URIC, CMP, LIPID #### [facility] [address] [place] [address] Dr. Gianni Deluna Chloride [Moles/Vol] 107 mmol/L Normal 98-107 [facility] Comment on above: Performed By: #### T SH, T7, URIC, CMP, LIPID #### [facility] [address] [place] [address] Dr. Gianni Deluna CO2 [Moles/Vol] 30.6 mmol/L Normal 21.0-32.0 [facility] Comment on above: Performed By: #### T SH, T7, URIC, CMP, LIPID #### [facility] [address] [place] [address] Dr. Gianni Deluna Creatinine [Mass/Vol] 0.93 mg/dL Normal 0.70-1.30 [facility] Comment on above: Performed By: #### T SH, T7, URIC, CMP, LIPID #### [facility] [address] [place] [address] Dr. Gianni Deluna EGFR-AF ALGERIAN >60 Normal >=60 [facility] Comment on above: Performed By: #### T SH, T7, URIC, CMP, LIPID #### [facility] [address] [place] [address] Dr. Gianni Deluna EGFR-NON AF ALGERIAN >60 Normal >=60 [facility] Comment on above: Performed By: #### T SH, T7, URIC, CMP, LIPID #### [facility] [address] [address] [address] Gianni Deluna Globulin (S) [Mass/Vol] 3.5 g/dL Normal [facility] Comment on above: Performed By: #### T SH, T7, URIC, CMP, LIPID #### [facility] [address] [address] [address] Gianni Deluna Glucose [Mass/Vol] 114 mg/dL Critically high 74-106 [facility] Comment on above: Performed By: #### T SH, T7, URIC, CMP, LIPID #### [facility] [address] [place] [address] Dr. Gianni Deluna Potassium [Moles/Vol] 4.0 mmol/L Normal 3.5-5.1 [facility] Comment on above: Performed By: #### T SH, T7, URIC, CMP, LIPID #### [facility] [address] [address] [address] Gianni Deluna Protein [Mass/Vol] 6.4 g/dL Normal 6.4-8.2 [facility] Comment on above: Performed By: #### T SH, T7, URIC, CMP, LIPID #### [facility] [address] [place] [address] Dr. Gianni Deluna Sodium [Moles/Vol] 142 mmol/L Normal 136-145 [facility] Comment on above: Performed By: #### T SH, T7, URIC, CMP, LIPID #### [facility] [address] [place] [address] Dr. Gianni Deluna Urea nitrogen [Mass/Vol] 11.0 mg/dL Normal 7.0-18.0 [facility] Comment on above: Performed By: #### T SH, T7, URIC, CMP, LIPID #### [facility] [address] [place] [address] Dr. Gianni Deluna Urea nitrogen/Creatinine [Mass ratio] 11.8 mg/mg Normal [facility] Comment on above: Performed By: #### T SH, T7, URIC, CMP, LIPID #### [facility] [address] [address] [address] Gianni Deluna TSHon 06-03-2022 TSH 0.814 uIU/mL Normal 0.358-3.740 [facility] Comment on above: Performed By: #### L ACT #### [facility] [address] [place] [address] Dr. Gianni Deluna URIC ACID SERUMon 06-03-2022 Urate [Mass/Vol] 5.2 mg/dL Normal 3.5-7.2 [facility] Comment on above: Performed By: #### T SH, T7, URIC, CMP, LIPID #### [facility] [address] [place] [address] Dr. Gianni Deluna CARDIAC ALEX 3-6on 2 CK [Catalytic activity/Vol] 82 U/L Normal 39-308 [facility] Comment on above: Performed By: #### L ACT #### [facility] [address] [place] [address] Dr. Gianni Deluna CK.MB [Mass/Vol] 2.40 ng/mL Normal <=3.60 [facility] Comment on above: Performed By: #### L ACT #### [facility] [address] [place] [address] Dr. Gianni Deluna HSTROP 8.6 pg/mL Normal 4.0-76.1 [facility] Comment on above: Result Comment: CUT- OFF POINTS HAVE BEEN ESTABLISHED BASED ON THE FOURTH UNIVERSAL DEFINITIONS OF MYOCARDIAL INFARCTION. THE UPPER REFERENCE LIMIT (URL) OF TROPONIN, DEFINED THE 99TH PERCENTILE OF cTnI DISTRIBUTION IN A REFERENCE POPULATION, HAS BEEN CONFIRMED THE DECISION THRESHOLD FOR [place] DIAGNOSIS. Performed By: #### L ACT #### [facility] [address] [place] [address] ABD/PELV W CONon 04-21-20 CT [...] by: JAIMIE COOPER Date: 2022-04-21 00:38 Normal [facility] LACTATE/LACTIC ACIDon 2021 Lactate [Moles/Vol] 2.2 mmol/L Critically high 0.4-1.9 [facility] Comment on above: Performed By: #### L ACT #### [facility] [address] [address] [address] Gianni Deluna AMYLASEon 04-20-2022 Amylase [Catalytic activity/Vol] 139 U/L Critically high 25-115 [facility] Comment on above: Performed By: #### L ACT #### [facility] [address] [address] [address] Gianni Deluna CARDIAC ALEX ADMITon 022 CK [Catalytic activity/Vol] 88 U/L Normal 39-308 [facility] Comment on above: Performed By: #### C MADM #### [facility] [address] [address] [address] Gianni Deluna CK.MB [Mass/Vol] 1.82 ng/mL Normal <=3.60 [facility] Comment on above: Performed By: #### C MADM #### [facility] [address] [place] [address] Dr. Gianni Deluna HSTROP 7.2 pg/mL Normal 4.0-76.1 [facility] Comment on above: Result Comment: CUT- OFF POINTS HAVE BEEN ESTABLISHED BASED ON THE FOURTH UNIVERSAL DEFINITIONS OF MYOCARDIAL INFARCTION. THE UPPER REFERENCE LIMIT (URL) OF TROPONIN, DEFINED THE 99TH PERCENTILE OF cTnI DISTRIBUTION IN A REFERENCE POPULATION, HAS BEEN CONFIRMED THE DECISION THRESHOLD FOR [place] DIAGNOSIS. Performed By: #### C MADM #### [facility] [address] [place] [address] Dr. Gianni Deluna FILIBERTO 93 ng/mL Normal 16-96 [facility] Comment on above: Performed By: #### C MADM #### [facility] [address] [place] [address] Dr. Gianni Deluna CBC AUTO DIFFon 04-20-2022 BASO # 0.0 103/ul Normal 0.0-0.1 [facility] Comment on above: Performed By: #### C BC #### [facility] [address] [place] [address] Dr. Gianni Deluna Basophils/100 WBC (Bld) 0.3 % Normal 0.2-2.0 [facility] Comment on above: Performed By: #### C BC #### [facility] [address] [place] [address] Dr. Gianni Deluna EO # 0.0 103/ul Normal 0.0-0.7 [facility] Comment on above: Performed By: #### C BC #### [facility] [address] [place] [address] Dr. Gianni Deluna Eosinophils/100 WBC (Bld) 0.1 % Critically low 0.9-7.0 The [facility] Comment on above: Performed By: #### C BC #### [facility] [address] [place] [address] Dr. Gianni Deluna Erythrocyte distribution width (RBC) [Ratio] 13.5 % Normal 11.0-15.0 [facility] Comment on above: Performed By: #### C BC #### [facility] [address] [place] [address] Dr. Gianni Deluna Hematocrit (Bld) [Volume fraction] 45.8 % Normal 42.0-54.0 [facility] Comment on above: Performed By: #### C BC #### [facility] [address] [place] [address] Dr. Gianni Deluna Hemoglobin (Bld) [Mass/Vol] 15.3 g/dL Normal 14.0-18.0 [facility] Comment on above: Performed By: #### C BC #### [facility] [address] [address] [address] Gianni Deluna IG # 0.05 10e3/ul Critically high 0.00-0.03 [facility] Comment on above: Performed By: #### C BC #### [facility] [address] [place] [address] Dr. Gianni Deluna IG % 0.5 % Normal 0.0-0.5 [facility] Comment on above: Performed By: #### C BC #### [facility] [address] [place] [address] Dr. Gianni Deluna LYMPH # 0.8 103/ul Critically low 1.2-3.8 [facility] Comment on above: Performed By: #### C BC #### [facility] [address] [place] [address] Dr. Gianni Deluna Lymphocytes/100 WBC (Bld) 7.7 % Critically low 20.5-60.0 [facility] Comment on above: Performed By: #### C BC #### [facility] [address] [place] [address] Dr. Gianni Deluna MANUAL DIFF REQ NO Normal [facility] Comment on above: Performed By: #### C BC #### [facility] [address] [place] [address] Dr. Gianni Deluna MCH (RBC) [Entitic mass] 30.4 pg Normal 25.9-34.0 [facility] Comment on above: Performed By: #### C BC #### [facility] [address] [place] [address] Dr. Gianni Deluna MCHC (RBC) [Mass/Vol] 33.4 g/dL Normal 29.9-35.2 [facility] Comment on above: Performed By: #### C BC #### [facility] [address] [address] [address] Gianni Deluna MCV (RBC) [Entitic vol] 90.9 fL Normal 80.0-94.0 [facility] Comment on above: Performed By: #### C BC #### [facility] [address] [address] [address] Gianni Deluna MONO # 0.4 103/ul Normal 0.3-0.8 [facility] Comment on above: Performed By: #### C BC #### [facility] [address] [place] [address] Dr. Gianni Deluna Monocytes/100 WBC (Bld) 3.3 % Normal 1.7-12.0 [facility] Comment on above: Performed By: #### C BC #### [facility] [address] [place] [address] Dr. Gianni Deluna NEUT # 9.7 103/ul Critically high 1.4-6.5 [facility] Comment on above: Performed By: #### C BC #### [facility] [address] [place] [address] Dr. Gianni Deluna Neutrophils/100 WBC (Bld) 88.1 % Critically high 43.0-75.0 [facility] Comment on above: Performed By: #### C BC #### [facility] [address] [place] [address] Dr. Gianni Deluna Platelet mean volume (Bld) [Entitic vol] 8.9 fL Critically low 9.5-13.5 [facility] Comment on above: Performed By: #### C BC #### [facility] [address] [place] [address] Dr. Gianni Deluna PLT 198 103/ul Normal 150-450 [facility] Comment on above: Performed By: #### C BC #### [facility] [address] [place] [address] Dr. Gianni Deluna RBC 5.04 106/ul Normal 4.70-6.10 [facility] Comment on above: Performed By: #### C BC #### [facility] [address] [place] [id number] [address] Gianni Deluna WBC 11.0 103/ul Normal 4.0-11.0 [facility] Comment on above: Performed By: #### C BC #### [facility] [address] [place] [address] Dr. Gianni Deluna Cov[facility]-19 [facility]on SARS-CoV-2 (COVID-19) RNA NICHOLE+probe Ql (Unsp spec) Not detected Normal NOT DETECTED [facility] Comment on above: Result Comment: When [...] for this test is supported by the [employer] of [employer] and Human Service's declaration that [...] used). Performed By: #### C VDTBH #### [facility] [address] [place] [address] [address] Gianni Deluna D-DIMERon 04-20-2022 D-DIMER 0.37 mg/L FEU Normal <=0.59 [facility] Comment on above: Performed By: #### D DIM #### [facility] [address] [place] [address] [address] Gianni Deluna D-DIMER COMMENTS SEE BELOW Normal [facility] Comment on above: Result Comment: Incr eases [...] hospitalization. Performed By: #### D DIM #### [facility] [address] [place] [address] Dr. Gianni Deluna LACTATE/LACTIC ACIDon 2021 Lactate [Moles/Vol] 2.3 mmol/L Critically high 0.4-1.9 [facility] Comment on above: Performed By: #### L ACT #### [facility] [address] [place] [address] Dr. Gianni Deluna LIPASEon 04-20-2022 Lipase [Catalytic activity/Vol] 48.0 U/L Critically low 73.0-393.0 [facility] Comment on above: Performed By: #### L ACT #### [facility] [address] [place] [address] Dr. Gianni Deluna PROF 14(COMP METB)on 022 Albumin [Mass/Vol] 3.9 g/dL Normal 3.4-5.0 [facility] Comment on above: Performed By: #### L ACT #### [facility] [address] [place] [address] Dr. Gianni Deluna Albumin/Globulin [Mass ratio] 1.0 {ratio} Normal [facility] Comment on above: Performed By: #### L ACT #### [facility] [address] [place] [address] Dr. Gianni Deluna ALP [Catalytic activity/Vol] 127 U/L Critically high 46-116 [facility] Comment on above: Performed By: #### L ACT #### [facility] [address] [place] [address] Dr. Gianni Deluna ALT [Catalytic activity/Vol] 27 U/L Normal 16-63 [facility] Comment on above: Performed By: #### L ACT #### [facility] [address] [address] [address] Gianni Deluna Anion gap [Moles/Vol] 15.9 mmol/L Normal [facility] Comment on above: Performed By: #### L ACT #### [facility] [address] [address] [address] Gianni Deluna AST [Catalytic activity/Vol] 27 U/L Normal 15-37 [facility] Comment on above: Performed By: #### L ACT #### [facility] [address] [address] [address] Gianni Deluna Bilirubin [Mass/Vol] 0.9 mg/dL Normal 0.2-1.0 [facility] Comment on above: Performed By: #### L ACT #### [facility] [address] [place] [address] Dr. Gianni Deluna Calcium [Mass/Vol] 8.9 mg/dL Normal 8.5-10.1 [facility] Comment on above: Performed By: #### L ACT #### [facility] [address] [address] [address] Gianni Deluna Chloride [Moles/Vol] 103 mmol/L Normal 98-107 [facility] Comment on above: Performed By: #### L ACT #### [facility] [address] [place] [address] Dr. Gianni Deluna CO2 [Moles/Vol] 24.2 mmol/L Normal 21.0-32.0 [facility] Comment on above: Performed By: #### L ACT #### [facility] [address] [place] [address] Dr. Gianni Deluna Creatinine [Mass/Vol] 1.27 mg/dL Normal 0.70-1.30 [facility] Comment on above: Performed By: #### L ACT #### [facility] [address] [place] [address] Dr. Gianni Deluna EGFR-AF ALGERIAN >60 Normal >=60 [facility] Comment on above: Performed By: #### L ACT #### [facility] [address] [address] [address] Gianni Deluna EGFR-NON AF ALGERIAN 56 mL/min/1.73m2 Critically low >=60 [facility] Comment on above: Performed By: #### L ACT #### [facility] [address] [address] [address] Gianni Deluna Globulin (S) [Mass/Vol] 3.9 g/dL Normal [facility] Comment on above: Performed By: #### L ACT #### [facility] [address] [address] [address] Gianni Deluna Glucose [Mass/Vol] 145 mg/dL Critically high 74-[address] [facility] Comment on above: Performed By: #### L ACT #### [facility] [address] [address] [address] Gianni Deluna Potassium [Moles/Vol] 4.1 mmol/L Normal 3.5-5.1 [facility] Comment on above: Performed By: #### L ACT #### [facility] [address] [address] [address] Gianni Deluna Protein [Mass/Vol] 7.8 g/dL Normal 6.4-8.2 [facility] Comment on above: Performed By: #### L ACT #### [facility] [address] [place] [address] Dr. Gianni Deluna Sodium [Moles/Vol] 139 mmol/L Normal 136-145 [facility] Comment on above: Performed By: #### L ACT #### [facility] [address] [address] [address] Gianni Deluna Urea nitrogen [Mass/Vol] 22.0 mg/dL Critically high 7.0-18.0 [facility] Comment on above: Performed By: #### L ACT #### [facility] [address] [address] [address] Gianni Deluna Urea nitrogen/Creatinine [Mass ratio] 17.3 mg/mg Normal [facility] Comment on above: Performed By: #### L ACT #### [facility] [address] [address] [address] Gianni Deluna XR ABD FLAT UP_PA [...] by: JAIMIE COOPER Date: 2022-04-20 21:58 Normal [facility] US RICHELLE DOP LEG LTon 03-18-20 [...] by: LAWANDA VEE Date: 2022-03-18 13:25 Normal [facility] US RICHELLE DOP LEG LTon 12-08-19 [...] ANTONI JOLLEY Date: 2021-12-06 22:57 Normal [facility] Encounters Encounter Date Encounter Type Care Provider Facility Start: 08-31-2023 End: 09-01-2023 ambulatory Stefany Ballard MD Facility:[facility] Start: 07-17-2023 ambulatory Evens Archer MD Facility:[facility] Start: 07-08-2023 End: 07-08-[address] [facility] Start: 06-29-2023 End: 06-29-2023 ambulatory [facility] Start: 06-29-2023 End: 06-29-2023 Encounter for other preprocedural examination [facility] Start: 06-17-2023 Encounter for other preprocedural examination [facility] Start: 05-20-2023 End: 05-20-2023 ambulatory [facility] Start: 05-13-2023 End: 05-14-2023 ambulatory Pramod HAYWARD [...] Comment on above: Performed By: #### P [facility] #### [facility] [address] [place] [address] Dr. Gianni Deluna Payers Date Payer Category Payer Unknown 2014 Unknown [id number] 1959 Self-pay [id number] 1959 Unknown [id number] 1954 Unknown [id number] 2.16.84 [id number] 1954 Unknown [id number] 2.16.84 [id number] 1954 Unknown [id number] 2.16.84 [id number] 1954 Unknown [id number] 2.16.84 [id number] 1954 Unknown [id number] 2.16.84 [id number] 1954 Unknown [id number] 2.16.84 [id number] 1954 Unknown [id number] 2.16.84 [id number] 1954 Unknown [id number] 2.16.84 0.1.905787.3.579.2.59 1954 Unknown [id number] 2.16.8 [id number] 1954 Unknown [id number] 2.16.8 [id number] 1954 Unknown [id number] 2.16.8 [id number] 1954 Unknown [id number] 2.16. [id number] Progress note 07-08-2023 Note Date & Type Note Facility 07-08-2023 Note Cardiovascular [facility] SUBJECTIVE Chief Complaint Patient presents with Edema [...] Final Atrial Rate 06/29/2023 47 BPM Final LA Interval 06/29/2023 154 ms Final QRS DURATION 06/29/2023 82 ms Final QT Interval 06/29/2023 482 ms Final QTC CALCULATION(BAZETT) 06/29/2023 426 ms Final P [place] 06/29/2023 16 degrees Final R-[place] 06/29/2023 55 degrees Final T Wave [place] 06/29/2023 41 degrees Final No results found for: EXTCMP, BMPR1A, CBCDIF, BNP, BNP, LASAP, RED Testing/Procedures: No echocardiogram results found for the past 14 days No echocardiogram results found for the past 12 months Encounter Date: 06/29/23 ECG 12 lead Result Value Ventricular Rate 47 Atrial Rate 47 LA Interval 154 QR (more content not included)... [facility] Progress note 07-08-2023 Note Date & Type [...] All other systems reviewed and are negative. [facility] Progress note 06-29-2023 Note Date & Type [...] inhibitor Follow-up with Dr. Soto in the [place] office in the next 2 to 4 weeks PROCEDURES: Ultrasound-guided access to the right common femoral artery, limited femoral angiography, ultrasound-guided access to the right common femoral vein, right heart catheterization, bilateral selective coronary angiography, placement of a 6 [place] [employer] vice president closure device METHODS: After risks, benefits, and [...] micropuncture kit was upsized to a 6 [place] 11 cm sheath. Angiography via the sheath [...] procedure. All catheters were removed. A 5 [place] [employer] closure device was deployed per protocol to achieve hemostasis. The venous sheath was to be removed with application of manual pressure to achieve optimal hemostasis. Overall the patient tolerated the procedure well. There were no overt complications. He was to be transferred to the [facility] area in stable condition. FINDINGS: Hemodynamics: RA [...] device. INDICATIONS: Preoperative evaluation, coronary artery disease. [facility] Progress note 05-20-2023 Note Date & Type Note Facility 05-20-2023 Note [facility] Card[facility] Clinic Note Chief Complaint: New patient here to establish care. Ref from Dr. Archer for surgery clearance. He has hx of CAD and previously followed with [facility] back in 2014. He has [...] percutaneous revascularization. He was evaluated at the [facility] [...] and a reasonable target. Was seen at [facility]; single-vessel coronary artery disease with a preserved [...] LAD. This wo (more content not included)... [facility] Clinical Note 05-13-2023 Note Date & Type [...] 10 mg Tab (more content not included)... [facility] Comment on above: Result Comment: Elec [...] content) DATE CREATED AUTHOR 11/21/2022 Nava Robb [facility] DATE CREATED AUTHOR AUTHOR'S ORGANIZ ATION 05/21/2023 [facility] DATE CREATED AUTHOR AUTHOR'S ORGANIZ ATION 07/10/2023 [facility] DATE CREATED AUTHOR AUTHOR'S ORGANIZ ATION 09/09/2023 [facility] FOR RECORDS PERTAINING TO PATIENTS WHO ARE [...] BE BASED ON THE PRIMARY CLINICAL RECORDS. [facility]. provides no warranty or guarantee of the accuracy or completeness of information in this document.
[2023-09-21 07:36] VITALS: BP 156/78; PULSE 56; RESP 16; TEMP 36.4; O2SAT 100
[2023-09-21 08:10] VITALS: BP 143/70; PULSE 58; RESP 18; O2SAT 99
[2023-09-21] MEDS: LIDOCAINE HCL 2% PF 100 MG/5 ML VIAL INJ (08:12)
[2023-09-21] MEDS: BUPIVACAINE HCL 0.25% PF 25 MG/10 ML VIAL INJ (08:12)
[2023-09-21 08:14] VITALS: BP 164/94; PULSE 59; RESP 18; O2SAT 97
--- NOTE | 2023-09-21 08:15 | W.PM.PROCNOT ---
Date of procedure: 09/21/23 Pre-op diagnosis: Lumbar spondylosis Post-op diagnosis: same as pre-op Procedure: Procedure: Bilateral L4-5, L5-S1 medial branch block Medications: Bupivacaine 0.25% 6cc The patient was seen and examined in the preoperative holding area.? An informed consent was obtained and placed on the chart.? The patient was brought to the medical procedure unit and placed in the prone position.? A timeout was completed verifying correct patient, procedure site, positioning, plan, and special equipment.? Using aseptic technique, the needle was placed at left L4. Under direct fluoroscopic visualization a Quincke-tipped spinal needle was advanced to the junction of the superior articulating process with the transverse process at the designated medial branch segment.? Preceded by negative aspiration, the above-mentioned injectate was placed in 1 mL aliquots.? The procedure was repeated at left L5, S1.? The needle was removed and insertion site was covered. The same procedure, at the same levels, was completed on the right side. The patient was taken to the postprocedural recovery area and monitored for an appropriate length of time before found suitable for discharge in the company of a responsible adult. Surgeon: Stefany Ballard Pathology: none sent Condition: stable Disposition: no change
== END 2023-09-21 08:20 | disposition home or self-care (01) ==
PROVIDERS: PCP Family Medicine; Visit Provider Anesthesiology
DX: M47.816 Spondylosis without myelopathy or radiculopathy, lumbar region (principal)
CPT/HCPCS: 64493; 64494; J0665

== ENCOUNTER 2023-09-30 08:29 | Outpatient (OUT) | payer MEDICARE, SELFPAY ==
--- OUTSIDE RECORDS SUMMARY | 2023-09-30 08:32 | XMS_ITS | CCD ---
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 Phone MADAIY ., DR HORNER [...] Penicillins; 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: [penicillins] Drug allergy (disorder) 10-25-2014 [facility] Repository (2 sources) HYDROcodone; 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: [HYDROcodone] Drug Allergy 10-25-2014 [facility] Repository (1 source) nabumetone; 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: [Relafen] Drug Allergy [facility] Repository (1 source) amLODIPine; 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: [AMLODIPINE] Drug Allergy 05-20-2023 [facility] Repository (1 source) nabumetone; 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: [NABUMETONE] Drug Allergy 10-25-2014 [facility] Repository Problems Active Problems Problem Classification Problem Date Documented Date Episodic/Chronic Coronary atherosclerosis and other heart disease (3 sources) Atherosclerotic heart disease of [place] coronary artery without angina pectoris; 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: [Unstable [...] Onset: 04-24-2022 Episodic Other aftercare (1 source) 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; 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: [TOBACCO SIZER CURRENT USE OF ASPIRIN] Onset: 04-24-2022 Episodic [...] then as needed *Limit salt/sodium intake Normal [facility] Office Visiton 07-08-2023 Follow-up visit [id number] Chung Denton 1955 M Date Provider Department Center 07/08/2023 [facility] Family History Problem Relation Age of Onset Heart attack Paternal Grandfather Family Status - Relation Status Age at Paternal Grandfather Level of Service:32045 ID OFFICE/OUTPATIENT ESTABLISHED MOD [facility] 30-39 MIN Reason for Visit and Comments: Edema [[id number]] Normal [facility] ANESon 06-29-2023 ANES -- Attestation signed by Eliane Soto MD at 06/29/2023 9:56 AM Eliane Soto MD, MPH, 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 Additional Equipment Requests Normal [facility] HPon 06-29-2023 HP -- Attestation signed by Eliane Soto MD at 06/29/2023 9:57 AM Eliane Soto MD, MPH, [facility], [facility], [facility] Interventional Cardiology Pager Email: [email or web address] History Of Present Illness Donnie Denton [...] He was evaluated by cardiothoracic surgery at [facility] and elected to pursue medical management at [...] treated since 2015. Meaghan Mukherjee DO, MPH Joint Cutter Machine [facility] Nabila 06-29-2023 KIERA RN educated pt on d/ c instructions. RN encouraged pt to voice any questions or concerns. Pt verbalizes no questions or concerns at this time. [facility] Orders Onlyon 06-17-2023 Orders Only [id number] Chung Denton 1955 M Date Provider Department Center 06/17/2023 Kristopher8-DEIRDRE RIDLEY CARD [facility] Family History Problem Relation Age of Onset Heart attack Paternal Grandfather Family Status - Relation Status Age at Paternal Grandfather Normal [facility] Letter (Out)on 05-26-2023 Letter (Out) [id number] Chung Denton bee R 1955 [facility] Provider Department Center 05/26/2023 None-None [facility] AUTH CA Medical C Family History Problem Relation Age of Onset Heart attack Paternal Grandfather Family Status - Relation Status Age at Paternal Grandfather Normal [facility] Office Visiton 05-20-2023 Follow-up visit [id number] BertinChung gamboa R 1955 [facility] Provider Department Center 05/20/2023 Richa-ELIANE SOTO VALERIANO [facility] Family History Problem Relation Age of Onset Heart attack Paternal Grandfather Family Status - Relation Status Age at Paternal Grandfather Level of Service:70572 ID OFFICE/OUTPATIENT [facility] 60-74 MINUTES Normal [facility] Orders Onlyon 05-20-2023 Orders Only [id number] BertinChung Campbell 1955 [facility] Provider Department Center 05/20/2023 Jason5-HIMANSHU MCMILLAN VALERIANO [facility] Family History Problem Relation Age of Onset Heart attack Paternal Grandfather Family Status - Relation Status Age at Paternal Grandfather Normal [facility] Facesheeton 05-14-2023 Facesheet [id number] D:127 Normal [facility] Ambulatory Visit Summaryon 0 05-13-2023 [...] Spondylosis of cervical spine Ureteral calculus Normal [facility] Physician Referralon 023 Physician Referral [id number] CD:127 Normal [facility] XR HIP RT 2 3V [...] ANTONI PENALOZA Date: 2022-11-13 22:[address] [facility] XR LSPINE MIN 4 VIEWSon 10-17 [...] paraspinous abnormality is seen. OTHER: Negative. IMPRESSION: [id number] degenerative changes Electronically authenticated by: ANTONI TRACEY Date: 2022-11-14 07:[address] [facility] CREATININEon 11-11-2022 Creatinine [Mass/Vol] 1.04 mg/dL Normal 0.70-1.[address] [facility] Comment on above: Performed By: #### C ASIF #### [facility] [address] [place] [address] Dr. Gianni Deluna EGFR-AF SOUTH KOREAN >60 Normal >=60 [facility] Comment on above: Performed By: #### C ASIF #### [facility] [address] [address] [address] Gianni Deluna EGFR-NON AF SOUTH KOREAN >60 Normal >=[address] [facility] Comment on above: Performed By: #### C ASIF #### [facility] [address] [place] [address] CHEST W CONon [...] by: PA CROW Date: 2022-11-11 11:29 Normal [facility] MRI [facility] WO CONon 08-14-20 22 MRI [facility] CON EXAMINATION: MRI CSPINE WO [...] ANTONI TRACEY Date: 2022-08-14 09:[address] [facility] INSULINon 06-04-2022 Insulin 13.5 uIU/mL Normal 2.6-24.[address] [facility] Comment on above: Performed By: #### L ACT #### [facility] [address] [place] [address] Dr. Gianni Deluna CBC AUTO DIFFon 06-03-2022 BASO # 0.1 103/ul Normal 0.0-0.1 [facility] Comment on above: Performed By: #### L ACT #### [facility] [address] [place] [address] Dr. Gianni Deluna Basophils/100 WBC (Bld) 1.2 % Normal 0.2-2.0 [facility] Comment on above: Performed By: #### L ACT #### [facility] [address] [place] [address] Dr. Gianni Deluna EO # 0.4 103/ul Normal 0.0-0.7 [facility] Comment on above: Performed By: #### L ACT #### [facility] [address] [place] [address] Dr. Gianni Deluna Eosinophils/100 WBC (Bld) 5.9 % Normal 0.9-7.[address] [facility] Comment on above: Performed By: #### L ACT #### [facility] [address] [place] [address] Dr. Gianni Deluna Erythrocyte distribution width (RBC) [Ratio] 13.4 % Normal 11.0-15.0 [facility] Comment on above: Performed By: #### L ACT #### [facility] [address] [place] [address] Dr. Gianni Deluna Hematocrit (Bld) [Volume fraction] 39.6 % Critically low 42.0-54.0 [facility] Comment on above: Performed By: #### L ACT #### [facility] [address] [place] [address] Dr. Gianni Deluna Hemoglobin (Bld) [Mass/Vol] 12.8 g/dL Critically low 14.0-18.0 [facility] Comment on above: Performed By: #### L ACT #### [facility] [address] [place] [address] Dr. Gianni Deluna IG # 0.04 10e3/ul Critically high 0.00-0.03 [facility] Comment on above: Performed By: #### L ACT #### [facility] [address] [place] [address] Dr. Gianni Deluna IG % 0.7 % Critically high 0.0-0.5 [facility] Comment on above: Performed By: #### L ACT #### [facility] [address] [place] [address] Dr. Gianni Deluna LYMPH # 1.9 103/ul Normal 1.2-3.8 [facility] Comment on above: Performed By: #### L ACT #### [facility] [address] [place] [address] Dr. Gianni Deluna Lymphocytes/100 WBC (Bld) 31.7 % Normal 20.5-60.0 [facility] Comment on above: Performed By: #### L ACT #### [facility] [address] [place] [address] Dr. Gianni Deluna MANUAL DIFF REQ NO Normal [facility] Comment on above: Performed By: #### L ACT #### [facility] [address] [place] [address] Dr. Gianni Deluna MCH (RBC) [Entitic mass] 30.2 pg Normal 25.9-34.0 [facility] Comment on above: Performed By: #### L ACT #### [facility] [address] [place] [address] Dr. Gianni Deluna MCHC (RBC) [Mass/Vol] 32.3 g/dL Normal 29.9-35.2 [facility] Comment on above: Performed By: #### L ACT #### [facility] [address] [place] [address] Dr. Gianni Deluna MCV (RBC) [Entitic vol] 93.4 fL Normal 80.0-94.0 [facility] Comment on above: Performed By: #### L ACT #### [facility] [address] [place] [address] Dr. Gianni Deluna MONO # 0.7 103/ul Normal 0.3-0.8 [facility] Comment on above: Performed By: #### L ACT #### [facility] [address] [place] [address] Dr. Gianni Deluna Monocytes/100 WBC (Bld) 11.9 % Normal 1.7-12.0 [facility] Comment on above: Performed By: #### L ACT #### [facility] [address] [place] [address] Dr. Gianni Deluna NEUT # 2.9 103/ul Normal 1.4-6.5 [facility] Comment on above: Performed By: #### L ACT #### [facility] [address] [place] [address] Dr. Gianni Deluna Neutrophils/100 WBC (Bld) 48.6 % Normal 43.0-75.0 [facility] Comment on above: Performed By: #### L ACT #### [facility] [address] [place] [address] Dr. Gianni Deluna Platelet mean volume (Bld) [Entitic vol] 9.1 fL Critically low 9.5-13.5 [facility] Comment on above: Performed By: #### L ACT #### [facility] [address] [place] [address] Dr. Gianni Deluna PLT 168 103/ul Normal 150-[address] [facility] Comment on above: Performed By: #### L ACT #### [facility] [address] [place] [address] Dr. Gianni Deluna RBC 4.24 106/ul Critically low 4.70-6.10 [facility] Comment on above: Performed By: #### L ACT #### [facility] [address] [address] [address] Gianni Deluna WBC 6.0 103/ul Normal 4.0-11.0 [facility] Comment on above: Performed By: #### L ACT #### [facility] [address] [address] [address] Gianni Deluna FREE THYROXINE INDEX T7on FTI 1.91 Normal 1.30-4.50 [facility] Comment on above: Performed By: #### L ACT #### [facility] [address] [address] [address] Gianni Deluna T3U 36.0 % Normal 33.0-40.0 [facility] Comment on above: Performed By: #### L ACT #### [facility] [address] [place] [address] Dr. Gianni Deluna T4 [Mass/Vol] 5.30 ug/dL Normal 4.50-12.10 [facility] Comment on above: Performed By: #### L ACT #### [facility] [address] [address] [address] Gianni Deluna GLYCOHEMOGLOBIN A1Con 2021 ADA RECOMMENDATION SEE BELOW Normal [facility] Comment on above: Result Comment: ADA RECOMMENDED LIMIT 4.0 - 6.0 ADA THERAPEUTIC TARGET < 7.0 ACTION SUGGESTED > 7.0 Performed By: #### D DIM #### [facility] [address] [place] [address] Dr. Gianni Deluna Glucose [Mass/Vol] 140 mg/dL Normal [facility] Comment on above: Performed By: #### D DIM #### [facility] [address] [place] [address] Dr. Gianni Deluna HbA1c (Bld) [Mass fraction] 6.5 % Critically high 4.5-6.2 [facility] Comment on above: Performed By: #### D DIM #### [facility] [address] [place] [address] Dr. Gianni Deluna LIPID PROFILEon 06-03-2022 CHOL-HDL RATIO NORM SEE BELOW Normal [facility] Comment on above: Result Comment: 3.3 - 4.4 LOW RISK 4.4 - 7.1 AVERAGE RISK 7.1 - 11.0 MODERATE RISK >11.0 HIGH RISK Performed By: #### T SH, T7, URIC, CMP, LIPID #### [facility] [address] [address] [address] Gianni Deluna Cholesterol [Mass/Vol] 104 mg/dL Normal <=200 [facility] Comment on above: Performed By: #### T SH, T7, URIC, CMP, LIPID #### [facility] [address] [address] [address] Gianni Deluna Cholesterol in HDL [Mass/Vol] 49 mg/dL Normal 40-60 [facility] Comment on above: Performed By: #### T SH, T7, URIC, CMP, LIPID #### [facility] [address] [address] [address] Gianni Deluna Cholesterol in LDL [Mass/Vol] 46.6 mg/dL Normal [facility] Comment on above: Performed By: #### T SH, T7, URIC, CMP, LIPID #### [facility] [address] [address] [address] Gianni Deluna Cholesterol.total/Ch olesterol in HDL [Mass ratio] 2.1 {ratio} Normal [facility] Comment on above: Performed By: #### T SH, T7, URIC, CMP, LIPID #### [facility] [address] [address] [address] Gianni Deluna HDL NORMAL > or = 60 mg/dl - LO W CARDIOVASCULAR RISK <40 mg/dl - HIGH CARDIOVASCULAR RISK Normal [facility] Comment on above: Performed By: #### T SH, T7, URIC, CMP, LIPID #### [facility] [address] [place] [address] Dr. Gianni Deluna LDL CALC NORMAL SEE BELOW Normal [facility] Comment on above: Result Comment: <100 mg/dl OPTIMAL 100 - 129 mg/dl NEAR OR ABOVE OPTIMAL 130 - 159 mg/dl BORDERLINE HIGH 160 - 189 mg/dl HIGH >190 mg/dl VERY HIGH Performed By: #### T SH, T7, URIC, CMP, LIPID #### [facility] [address] [address] [address] Gianni Deluna Triglyceride [Mass/Vol] 42 mg/dL Normal <=150 [facility] Comment on above: Performed By: #### T SH, T7, URIC, CMP, LIPID #### [facility] [address] [address] [address] Gianni Deluna VLDL CALC 8.4 mg/dL Normal [facility] Comment on above: Performed By: #### T SH, T7, URIC, CMP, LIPID #### [facility] [address] [address] [address] Gianni Deluna PROF 14(COMP METB)on 022 Albumin [Mass/Vol] 2.9 g/dL Critically low 3.4-5.[address] [facility] Comment on above: Performed By: #### T SH, T7, URIC, CMP, LIPID #### [facility] [address] [place] [address] Dr. Gianni Deluna Albumin/Globulin [Mass ratio] 0.8 {ratio} Normal [facility] Comment on above: Performed By: #### T SH, T7, URIC, CMP, LIPID #### [facility] [address] [place] [address] Dr. Gianni Deluna ALP [Catalytic activity/Vol] 127 U/L Critically high 46-[address] [facility] Comment on above: Performed By: #### T SH, T7, URIC, CMP, LIPID #### [facility] [address] [place] [address] Dr. Gianni Deluna ALT [Catalytic activity/Vol] 23 U/L Normal 16-63 [facility] Comment on above: Performed By: #### T SH, T7, URIC, CMP, LIPID #### [facility] [address] [place] [address] Dr. Gianni Deluna Anion gap [Moles/Vol] 8.4 mmol/L Normal [facility] Comment on above: Performed By: #### T SH, T7, URIC, CMP, LIPID #### [facility] [address] [address] [address] Gianni Deluna AST [Catalytic activity/Vol] 21 U/L Normal 15-[address] [facility] Comment on above: Performed By: #### T SH, T7, URIC, CMP, LIPID #### [facility] [address] [place] [address] Dr. Gianni Deluna Bilirubin [Mass/Vol] 0.5 mg/dL Normal 0.2-1.0 [facility] Comment on above: Performed By: #### T SH, T7, URIC, CMP, LIPID #### [facility] [address] [place] [address] Dr. Gianni Deluna Calcium [Mass/Vol] 8.3 mg/dL Critically low 8.5-10.1 [facility] Comment on above: Performed By: #### T SH, T7, URIC, CMP, LIPID #### [facility] [address] [place] [address] Dr. Gianni Deluna Chloride [Moles/Vol] 107 mmol/L Normal 98-[address] [facility] Comment on above: Performed By: #### T SH, T7, URIC, CMP, LIPID #### [facility] [address] [place] [address] Dr. Gianni Deluna CO2 [Moles/Vol] 30.6 mmol/L Normal 21.0-32.0 [facility] Comment on above: Performed By: #### T SH, T7, URIC, CMP, LIPID #### [facility] [address] [place] [address] Dr. Gianni Deluna Creatinine [Mass/Vol] 0.93 mg/dL Normal 0.70-1.30 [facility] Comment on above: Performed By: #### T SH, T7, URIC, CMP, LIPID #### [facility] [address] [place] [address] Dr. Gianni Deluna EGFR-AF [place]ORE[place] >60 Normal >=60 [facility] Comment on above: Performed By: #### T SH, T7, URIC, CMP, LIPID #### [facility] [address] [place] [address] Dr. Gianni Deluna EGFR-NON AF [place]ORE[place] >60 Normal >=[address] [facility] Comment on above: Performed By: #### T SH, T7, URIC, CMP, LIPID #### [facility] [address] [address] [address] Gianni Deluna Globulin (S) [Mass/Vol] 3.5 g/dL Normal [facility] Comment on above: Performed By: #### T SH, T7, URIC, CMP, LIPID #### [facility] [address] [address] [address] Gianni Deluna Glucose [Mass/Vol] 114 mg/dL Critically high 74-106 [facility] Comment on above: Performed By: #### T SH, T7, URIC, CMP, LIPID #### [facility] [address] [place] [address] Dr. Gianni Deluna Potassium [Moles/Vol] 4.0 mmol/L Normal 3.5-5.1 [facility] Comment on above: Performed By: #### T SH, T7, URIC, CMP, LIPID #### [facility] [address] [address] [address] Gianni Deluna Protein [Mass/Vol] 6.4 g/dL Normal 6.4-8.2 [facility] Comment on above: Performed By: #### T SH, T7, URIC, CMP, LIPID #### [facility] [address] [place] [address] Dr. Gianni Deluna Sodium [Moles/Vol] 142 mmol/L Normal 136-145 [facility] Comment on above: Performed By: #### T SH, T7, URIC, CMP, LIPID #### [facility] [address] [place] [address] Dr. Gianni Deluna Urea nitrogen [Mass/Vol] 11.0 mg/dL Normal 7.0-18.0 [facility] Comment on above: Performed By: #### T SH, T7, URIC, CMP, LIPID #### [facility] [address] [place] [address] Dr. Gianni Deluna Urea nitrogen/Creatinine [Mass ratio] 11.8 mg/mg Normal [facility] Comment on above: Performed By: #### T SH, T7, URIC, CMP, LIPID #### [facility] [address] [address] [address] Gianni Deluna TSHon 06-03-2022 TSH 0.814 uIU/mL Normal 0.358-3.740 [facility] Comment on above: Performed By: #### L ACT #### [facility] [address] [place] [address] Dr. Gianni Deluna URIC ACID SERUMon 06-03-2022 Urate [Mass/Vol] 5.2 mg/dL Normal 3.5-7.2 [facility] Comment on above: Performed By: #### T SH, T7, URIC, CMP, LIPID #### [facility] [address] [place] [address] Dr. Gianni Deluna CARDIAC ALEX 3-6on 2 CK [Catalytic activity/Vol] 82 U/L Normal 39-[address] [facility] Comment on above: Performed By: #### L ACT #### [facility] [address] [place] [address] Dr. Gianni Deluna CK.MB [Mass/Vol] 2.40 ng/mL Normal <=3.60 [facility] Comment on above: Performed By: #### L ACT #### [facility] [address] [place] [address] Dr. Gianni Deluna HSTROP 8.6 pg/mL Normal 4.0-76.[address] [facility] Comment on above: Result Comment: CUT- OFF POINTS HAVE BEEN ESTABLISHED BASED ON THE FOURTH UNIVERSAL DEFINITIONS OF MYOCARDIAL INFARCTION. THE UPPER REFERENCE LIMIT (URL) OF TROPONIN, DEFINED THE 99TH PERCENTILE OF cTnI DISTRIBUTION IN A REFERENCE POPULATION, HAS BEEN CONFIRMED THE DECISION THRESHOLD FOR [place] DIAGNOSIS. Performed By: #### L ACT #### [facility] [address] [place] [address] ABD/PELV W CONon [...] by: JAIMIE COOPER Date: 2022-04-21 00:38 Normal [facility] LACTATE/LACTIC ACIDon 2021 Lactate [Moles/Vol] 2.2 mmol/L Critically high 0.4-1.9 [facility] Comment on above: Performed By: #### L ACT #### [facility] [address] [address] [address] Gianni Deluna AMYLASEon 04-20-2022 Amylase [Catalytic activity/Vol] 139 U/L Critically high 25-115 [facility] Comment on above: Performed By: #### L ACT #### [facility] [address] [address] [address] Gianni Deluna CARDIAC ALEX ADMITon 022 CK [Catalytic activity/Vol] 88 U/L Normal 39-[address] [facility] Comment on above: Performed By: #### C MADM #### [facility] [address] [address] [address] Gianni Deluna CK.MB [Mass/Vol] 1.82 ng/mL Normal <=3.60 [facility] Comment on above: Performed By: #### C MADM #### [facility] [address] [place] [address] Dr. Gianni Deluna HSTROP 7.2 pg/mL Normal 4.0-76.[address] [facility] Comment on above: Result Comment: CUT- OFF POINTS HAVE BEEN ESTABLISHED BASED ON THE FOURTH UNIVERSAL DEFINITIONS OF MYOCARDIAL INFARCTION. THE UPPER REFERENCE LIMIT (URL) OF TROPONIN, DEFINED THE 99TH PERCENTILE OF cTnI DISTRIBUTION IN A REFERENCE POPULATION, HAS BEEN CONFIRMED THE DECISION THRESHOLD FOR FL DIAGNOSIS. Performed By: #### C MADM #### [facility] [address] [place] [address] Dr. Gianni Deluna FILIBERTO 93 ng/mL Normal 16-[address] [facility] Comment on above: Performed By: #### C MADM #### [facility] [address] [place] [address] Dr. Gianni Deluna CBC AUTO DIFFon 04-20-2022 BASO # 0.0 103/ul Normal 0.0-0.1 [facility] Comment on above: Performed By: #### C BC #### [facility] [address] [place] [address] Dr. Gianni Deluna Basophils/100 WBC (Bld) 0.3 % Normal 0.2-2.[address] [facility] Comment on above: Performed By: #### C BC #### [facility] [address] [place] [address] Dr. Gianni Deluna EO # 0.0 103/ul Normal 0.0-0.[address] [facility] Comment on above: Performed By: #### C BC #### [facility] [address] [place] [address] Dr. Gianni Deluna Eosinophils/100 WBC (Bld) 0.1 % Critically low 0.9-7.[address] [facility] Comment on above: Performed By: #### C BC #### [facility] [address] [place] [address] Dr. Gianni Deluna Erythrocyte distribution width (RBC) [Ratio] 13.5 % Normal 11.0-15.0 [facility] Comment on above: Performed By: #### C BC #### [facility] [address] [place] [address] Dr. Gianni Deluna Hematocrit (Bld) [Volume fraction] 45.8 % Normal 42.0-54.0 [facility] Comment on above: Performed By: #### C BC #### [facility] [address] [place] [address] Dr. Gianni Deluna Hemoglobin (Bld) [Mass/Vol] 15.3 g/dL Normal 14.0-18.0 [facility] Comment on above: Performed By: #### C BC #### [facility] [address] [address] [address] Gianni Deluna IG # 0.05 10e3/ul Critically high 0.00-0.03 [facility] Comment on above: Performed By: #### C BC #### [facility] [address] [place] [address] Dr. Gianni Deluna IG % 0.5 % Normal 0.0-0.5 [facility] Comment on above: Performed By: #### C BC #### [facility] [address] [place] [address] Dr. Gianni Deluna LYMPH # 0.8 103/ul Critically low 1.2-3.8 [facility] Comment on above: Performed By: #### C BC #### [facility] [address] [place] [address] Dr. Gianni Deluna Lymphocytes/100 WBC (Bld) 7.7 % Critically low 20.5-60.0 [facility] Comment on above: Performed By: #### C BC #### [facility] [address] [place] [address] Dr. Gianni Deluna MANUAL DIFF REQ NO Normal [facility] Comment on above: Performed By: #### C BC #### [facility] [address] [place] [address] Dr. Gianni Deluna MCH (RBC) [Entitic mass] 30.4 pg Normal 25.9-34.0 [facility] Comment on above: Performed By: #### C BC #### [facility] [address] [place] [address] Dr. Gianni Deluna MCHC (RBC) [Mass/Vol] 33.4 g/dL Normal 29.9-35.2 [facility] Comment on above: Performed By: #### C BC #### [facility] [address] [address] [address] Gianni Deluna MCV (RBC) [Entitic vol] 90.9 fL Normal 80.0-94.0 [facility] Comment on above: Performed By: #### C BC #### [facility] [address] [address] [address] Gianni Deluna MONO # 0.4 103/ul Normal 0.3-0.[address] [facility] Comment on above: Performed By: #### C BC #### [facility] [address] [place] [address] Dr. Gianni Deluna Monocytes/100 WBC (Bld) 3.3 % Normal 1.7-12.0 [facility] Comment on above: Performed By: #### C BC #### [facility] [address] [place] [address] Dr. Gianni Deluna NEUT # 9.7 103/ul Critically high 1.4-6.5 [facility] Comment on above: Performed By: #### C BC #### [facility] [address] [place] [address] Dr. Gianni Deluna Neutrophils/100 WBC (Bld) 88.1 % Critically high 43.0-75.[address] [facility] Comment on above: Performed By: #### C BC #### [facility] [address] [place] [address] Dr. Gianni Deluna Platelet mean volume (Bld) [Entitic vol] 8.9 fL Critically low 9.5-13.[address] [facility] Comment on above: Performed By: #### C BC #### [facility] [address] [place] [address] Dr. Gianni Deluna PLT 198 103/ul Normal 150-[address] [facility] Comment on above: Performed By: #### C BC #### [facility] [address] [place] [address] Dr. Gianni Deluna RBC 5.04 106/ul Normal 4.70-6.[address] [facility] Comment on above: Performed By: #### C BC #### [facility] [address] [place] [address] [address] [address] Gianni Deluna WBC 11.0 103/ul Normal 4.0-11.0 [facility] Comment on above: Performed By: #### C BC #### [facility] [address] [place] [address] Dr. Gianni Deluna [facility]19 [facility]on SARS-CoV-2 (COVID-19) RNA NICHOLE+probe Ql (Unsp spec) Not detected Normal NOT DETECTED [facility] Comment on above: Result Comment: When [...] for this test is supported by the [place] of Health and Human Service's declaration that [...] used). Performed By: #### C VDTBH #### [facility] [address] [place] [address] Gianni Deluna D-DIMERon 04-20-2022 D-DIMER 0.37 mg/L FEU Normal <=0.59 [facility] Comment on above: Performed By: #### D DIM #### [facility] [address] [place] [address] Gianni Deluna D-DIMER COMMENTS SEE BELOW Normal [facility] Comment on above: Result Comment: Incr [...] hospitalization. Performed By: #### D DIM #### [facility] [address] [place] [address] Dr. Gianni Deluna LACTATE/LACTIC ACIDon 2021 Lactate [Moles/Vol] 2.3 mmol/L Critically high 0.4-1.9 [facility] Comment on above: Performed By: #### L ACT #### [facility] [address] [place] [address] Dr. Gianni Deluna LIPASEon 04-20-2022 Lipase [Catalytic activity/Vol] 48.0 U/L Critically low 73.0-393.0 [facility] Comment on above: Performed By: #### L ACT #### [facility] [address] [place] [address] Dr. Gianni Deluna PROF 14(COMP METB)on 022 Albumin [Mass/Vol] 3.9 g/dL Normal 3.4-5.0 [facility] Comment on above: Performed By: #### L ACT #### [facility] [address] [place] [address] Dr. Gianni Deluna Albumin/Globulin [Mass ratio] 1.0 {ratio} Normal [facility] Comment on above: Performed By: #### L ACT #### [facility] [address] [place] [address] Dr. Gianni Deluna ALP [Catalytic activity/Vol] 127 U/L Critically high 46-116 [facility] Comment on above: Performed By: #### L ACT #### [facility] [address] [place] [address] Dr. Gianni Deluna ALT [Catalytic activity/Vol] 27 U/L Normal 16-63 [facility] Comment on above: Performed By: #### L ACT #### [facility] [address] [address] [address] Gianni Deluna Anion gap [Moles/Vol] 15.9 mmol/L Normal [facility] Comment on above: Performed By: #### L ACT #### [facility] [address] [address] [address] Gianni Deluna AST [Catalytic activity/Vol] 27 U/L Normal 15-37 [facility] Comment on above: Performed By: #### L ACT #### [facility] [address] [address] [address] Gianni Deluna Bilirubin [Mass/Vol] 0.9 mg/dL Normal 0.2-1.0 [facility] Comment on above: Performed By: #### L ACT #### [facility] [address] [place] [address] Dr. Gianni Deluna Calcium [Mass/Vol] 8.9 mg/dL Normal 8.5-10.1 [facility] Comment on above: Performed By: #### L ACT #### [facility] [address] [address] [address] Gianni Deluna Chloride [Moles/Vol] 103 mmol/L Normal 98-107 [facility] Comment on above: Performed By: #### L ACT #### [facility] [address] [place] [address] Dr. Gianni Deluna CO2 [Moles/Vol] 24.2 mmol/L Normal 21.0-32.0 [facility] Comment on above: Performed By: #### L ACT #### [facility] [address] [place] [address] Dr. Gianni Deluna Creatinine [Mass/Vol] 1.27 mg/dL Normal 0.70-1.30 [facility] Comment on above: Performed By: #### L ACT #### [facility] [address] [place] [address] Dr. Gianni Deluna EGFR-AF [place]ORE[place] >60 Normal >=60 [facility] Comment on above: Performed By: #### L ACT #### [facility] [address] [address] [address] Gianni Deluna EGFR-NON AF [place] 56 mL/min/1.73m2 Critically low >=60 [facility] Comment on above: Performed By: #### L ACT #### [facility] [address] [address] [address] Gianni Deluna Globulin (S) [Mass/Vol] 3.9 g/dL Normal [facility] Comment on above: Performed By: #### L ACT #### [facility] [address] [address] [address] Gianni Deluna Glucose [Mass/Vol] 145 mg/dL Critically high 74-106 [facility] Comment on above: Performed By: #### L ACT #### [facility] [address] [address] [address] Gianni Deluna Potassium [Moles/Vol] 4.1 mmol/L Normal 3.5-5.1 [facility] Comment on above: Performed By: #### L ACT #### [facility] [address] [address] [address] Gianni Deluna Protein [Mass/Vol] 7.8 g/dL Normal 6.4-8.2 [facility] Comment on above: Performed By: #### L ACT #### [facility] [address] [place] [address] Dr. Gianni Deluna Sodium [Moles/Vol] 139 mmol/L Normal 136-145 [facility] Comment on above: Performed By: #### L ACT #### [facility] [address] [address] [address] Gianni Deluna Urea nitrogen [Mass/Vol] 22.0 mg/dL Critically high 7.0-18.0 [facility] Comment on above: Performed By: #### L ACT #### [facility] [address] [address] [address] Gianni Deluna Urea nitrogen/Creatinine [Mass ratio] 17.3 mg/mg Normal [facility] Comment on above: Performed By: #### L ACT #### [facility] [address] [address] [address] Gianni Deluna XR ABD FLAT UP_PA [...] by: JAIMIE COOPER Date: 2022-04-20 21:58 Normal [facility] US RICHELLE DOP LEG LTon [...] by: LAWANDA VEE Date: 2022-03-18 13:25 Normal [facility] US RICHELLE DOP LEG LTon [...] ANTONI JOLLEY Date: 2021-12-06 22:[address] [facility] Encounters Encounter Date Encounter Type Care Provider Facility Start: 08-31-2023 End: 09-01-2023 ambulatory Stefany Ballard MD Facility:[facility] Start: 07-17-2023 ambulatory Evens Archer MD Facility:[facility] Start: 07-08-2023 End: 07-08-2023 ambulatory [facility] Start: 06-29-2023 End: 06-29-2023 ambulatory [facility] Start: 06-29-2023 End: 06-29-2023 Encounter for other preprocedural examination [facility] Start: 06-17-2023 Encounter for other preprocedural examination [facility] Start: 05-20-2023 End: 05-20-2023 ambulatory [facility] Start: 05-13-2023 End: 05-14-2023 ambulatory Pramod [...] Comment on above: Performed By: #### [facility] #### [facility] [address] [place] [address] Dr. Gianni Deluna Payers Date Payer Category Payer Unknown 2014 Unknown [id number] 1959 Self-pay [id number] 1959 Unknown [id number] 1954 Unknown [id number] 2.16.84 [id number] 1954 Unknown [id number] 2.16.84 [id number] 1954 Unknown [id number] 2.16.84 [id number] 1954 Unknown [id number] 2.16.84 [id number] 1954 Unknown [id number] 2.16.84 [id number] 1954 Unknown [id number] 2.16.84 [id number] 1954 Unknown [id number] 2.16.84 [id number] 1954 Unknown [id number] 2.16.84 [id number] 1954 Unknown [id number] 2.16.8 [id number] 1954 Unknown [id number] 2.16.8 [id number] 1954 Unknown [id number] 2.16.8 [id number] 1954 Unknown [id number] 2.16. [id number] Progress note 07-08-2023 Note Date & Type Note Facility 07-08-2023 Note [facility] SUBJECTIVE Chief Complaint Patient presents with Edema [...] Final Atrial Rate 06/29/2023 47 BPM Final ID Interval 06/29/2023 154 ms Final QRS DURATION 06/29/2023 82 ms Final QT Interval 06/29/2023 482 ms Final QTC CALCULATION(BAZETT) 06/29/2023 426 ms Final P [place] 06/29/2023 16 degrees Final R-[place] 06/29/2023 55 degrees Final T Wave [place] 06/29/2023 41 degrees Final No results found for: EXTCMP, BMPR1A, CBCDIF, BNP, BNP, LASAP, RED Testing/Procedures: No echocardiogram results found for the past 14 days No echocardiogram results found for the past 12 months Encounter Date: 06/29/23 ECG 12 lead Result Value Ventricular Rate 47 Atrial Rate 47 ID Interval 154 QR (more content not included)... [facility] Progress note 07-08-2023 Note Date & [...] All other systems reviewed and are negative. [facility] Progress note 06-29-2023 Note Date & [...] inhibitor Follow-up with Dr. Soto in the [place] office in the next 2 to 4 weeks PROCEDURES: Ultrasound-guided access to the right common femoral artery, limited femoral angiography, ultrasound-guided access to the right common femoral vein, right heart catheterization, bilateral selective coronary angiography, placement of a 6 [place] M[employer] manager program management closure device METHODS: After risks, benefits, and [...] micropuncture kit was upsized to a 6 [place] 11 cm sheath. Angiography via the sheath [...] procedure. All catheters were removed. A 5 [place] Mynx closure device was deployed per protocol to achieve hemostasis. The venous sheath was to be removed with application of manual pressure to achieve optimal hemostasis. Overall the patient tolerated the procedure well. There were no overt complications. He was to be transferred to the [facility] area in stable condition. FINDINGS: Hemodynamics: [...] device. INDICATIONS: Preoperative evaluation, coronary artery disease. [facility] Progress note 05-20-2023 Note Date & Type Note Facility 05-20-2023 Note [facility] Note Chief Complaint: New patient here to establish care. Ref from Dr. Archer for surgery clearance. He has hx of CAD and previously followed with [facility] back in 2014. He has upcoming [...] percutaneous revascularization. He was evaluated at the [facility]. It was elected to [...] and a reasonable target. Was seen at [facility]; single-vessel coronary artery disease with a preserved [...] LAD. This wo (more content not included)... [facility] Clinical Note 05-13-2023 Note Date & [...] 10 mg Tab (more content not included)... [facility] Comment on above: [...] content) DATE CREATED AUTHOR 11/21/2022 [facility] DATE CREATED AUTHOR AUTHOR'S ORGANIZ ATION 05/21/2023 [facility] DATE CREATED AUTHOR AUTHOR'S ORGANIZ ATION 07/10/2023 [facility] DATE CREATED AUTHOR AUTHOR'S ORGANIZ ATION 09/09/2023 [facility] FOR RECORDS PERTAINING TO PATIENTS WHO [...] BE BASED ON THE PRIMARY CLINICAL RECORDS. [facility]. provides no warranty or guarantee of the accuracy or completeness of information in this document.
--- NOTE | 2023-09-30 08:42 | P.CN_ITS ---
Consult Note: HPI Data of Consult Patient: known to practice within the last 3 years Consult date: 08/06/23 Requesting Physician: Nat Benedict NP Primary Care Provider: Eriberto Archer MD Consult Narrative Reason for consult: chronic low back pain Narrative: Donnie [place] a pleasant 68 year old male presents for evaluation and management of chronic lumbar pain, lumbar stenosis with NC, lumbar radiculopathy. Patient has failed to benefit from conservative measures, PT/HEP greater than 6 weeks. Patient underwent right L4-5 L5-S1 TFESI with 50% relief and functional improvement for greater than 1 month, however no longer finding benefit. Most recently underwent bilateral L4-5 L5-S1 facet medial branch block #1 with 80-90% immediate pain relief in lumbar spine and functional improvement lasting hours after the procedure, noted improvement in ambulation and posture. Patient reports feeling off today, unsure to describe how he is feeling other than not aware of his surroundings with spacial awareness. Patient denies dizziness, headaches, lightheadedness, fevers, chills, change in bowel or bladder. Woke up feeling this way. Vitals WNL. cc:: CC: Nat Benedict NP Review of Systems ROS Status of ROS 10 or more systems reviewed and unremark able except as noted in history and below Musculoskeletal Reports: back pain PFSH PFSH Medical History (Updated 09/30/23 @ 09:42 by Nat Benedict NP) Hypothyroid ?E03.9 - Hypothyroidism, unspecified (ICD-10) Thrombosis ?I82.90 - Acute embolism and thrombosis of unspecified vein (ICD-10) History of angina ?Z86.79 - Personal history of other diseases of the circulatory system (ICD- 10) Hypertension ?I10 - Essential (primary) hypertension (ICD-10) Surgical History History of fusion of cervical spine ?Z98.1 - Arthrodesis status (ICD-10) History of appendectomy ?Z90.49 - Acquired absence of other specified parts of digestive tract (ICD- 10) Hx of tonsillectomy ?Z90.89 - Acquired absence of other organs (ICD-10) Meds Home Medications and Allergies Home Medications Medication Instructions Recorded Confirmed Type aspirin 325 mg tablet 325 mg PO DAILY 08/06/23 09/21/23 History atorvastatin 40 mg tablet 40 mg PO DAILY 08/06/23 09/21/23 History carvedilol 25 mg tablet 25 mg PO Q12H 08/06/23 09/21/23 History ferrous sulfate 325 mg (65 mg 325 mg PO DAILY 08/06/23 09/21/23 History iron) tablet (Feosol) furosemide 20 mg tablet 20 mg PO DAILY PRN edema 08/06/23 09/21/23 History lansoprazole 15 mg delayed 15 mg PO Q12H 08/06/23 09/21/23 History release,disintegrating tablet levothyroxine 50 mcg tablet 50 mcg PO QDAY 08/06/23 09/21/23 History (Synthroid) nitroglycerin 0.4 mg sublingual 0.4 mg sublingual Q5M 08/06/23 09/21/23 History tablet ranolazine 500 mg tablet,extended 500 mg PO Q12H 08/06/23 09/21/23 History release,12 hr tizanidine 4 mg tablet 4 mg PO BEDTIME 08/06/23 09/21/23 History zolpidem 10 mg tablet 10 mg PO QDAY 08/06/23 09/21/23 History celecoxib 100 mg capsule 100 mg PO Q12H 08/31/23 09/21/23 History Allergies Allergy/AdvReac Type Severity Reaction Status Date / Time Penicillins Allergy Verified 09/21/23 07:40 Exam Constitutional Documenting provider has reviewed patient's vital signs: yes Common normals: oriented x3, healthy appearing, alert and well nourished Exam limitations: other limitations General appearance: cooperative Orientation/consciousness: Yes awake, Yes oriented to person, Yes oriented to place and Yes oriented to time HENMT Common normals: normocephalic, hearing grossly normal bilaterally and moist oral mucous membranes Head and scalp: normocephalic Eye Common normals: PERRL Pupil: PERRL Neck & C-Spine Common normals: full ROM General: normal visual inspection Chest Common normals: inspection of chest normal Respiratory Common normals: normal respiratory effort, no retractions and no use of accessory muscles Back & Pelvis Lumbar spine/lower back: ROM limited, pain with ROM and straight leg raise positive right Other: bilateral facet loading right greater than left radiculopathy to right leg following l5/s1, sensation intact strength 5/5 in LLE, 4/5 in RLE Extremity Common normals: normal to inspection and full ROM Neuro Common normals: oriented x3, CN's II-XII intact bilaterally, moves all extremities, no focal motor deficits, no sensory deficits noted and deep tendon reflexes 2+ bilaterally Sensorium/orientation: alert Gait (neuro): antalgic Motor exam: no movement abnormalities noted and strength abnormal (4/5 in RLE) Psych Common normals: mental status grossly normal, thought process normal, cooperative, affect normal, speech normal and activity/motor behavior normal Speech: normal speech Thought process: normal thought process Results Additional Findings Additional findings: I have checked an OARRS report on this patient today and there are no aberrancies noted in the prescribing history.?? A drug screen was completed and reviewed within the last year, and if there has not been a drug screen completed we ordered one today to monitor higher risk, state monitored pain medication use. As part of providing excellent, safe, comprehensive care, the following was completed at our patient's visit: 1. A medication reconciliation and review to ensure accurate knowledge of curren t/active medications, including asking our patients to inform us about any [id number] medications or herbal remedies/nutritional supplements/alternative remedies. 2. A review to specifically ensure our patients have had annual screening for: elevated body mass index (BMI), tobacco use, screening for depression, and screening for unhealthy alcohol use. When screening is concerning, patients are provided with education and the specific recommendation to discuss the concerning health issue and treatment options with their primary care provider. Assessment and Plan Assessment and Plan (1) Lumbar spondylosis: Assessment and Plan: The patient has had over 3 months of moderate to severe low back pain with functional impairment and inadequate response to conservative care including NSAIDS (unless there are contraindication such as concurrent blood thinners), multiple oral or topical pain medications, and home exercise program/physical therapy.? Patient has completed >6 weeks of guided home exercise program and/or formal physical therapy program without relief of their symptoms.? I have reviewed the imaging of the lumbar spine and no red flags were identified.? The imaging reveals radiographic findings consistent with lumbar spondylosis We discussed the risks and benefits of the procedure with the patient, and we are NOT planning on using sedation as outlined in the guidelines from Medicare unless there is a documented reason that sedation would be strongly re commended.?? The procedure will be completed with fluoroscopic guidance.? (2) Myofascial pain: (3) Lumbar stenosis with neurogenic claudication: (4) Lumbar radiculopathy: Plan encouraged to f/u with PCP regarding feeling off , if patient develops dizziness lightheadedness, symptoms get worse, new symptoms develop, or he falls go to ER defer additional injection therapy at this time due to cost, would consider right L4-5 L5-S1 TFESI with steroid rotation to methylprednisolone as previous right L4-5 L5-S1 TFESI provided less than 3 months of 50% improvement in pain and functional improvement. consider gabapentin in the future, patient will call next week to discuss pain and treatment plan when he is feeling better. continue current medications, tolerating well without side effect f/u 2 week post after JAVI if patient calls to schedule
== END 2023-09-30 08:30 | disposition home or self-care (01) ==
LOC: PM 08:30
PROVIDERS: PCP Family Medicine; Visit Provider Nurse Practitioner
DX: M47.816 Spondylosis without myelopathy or radiculopathy, lumbar region (principal); M79.18 Myalgia, other site; M48.062 Spinal stenosis, lumbar region with neurogenic claudication; M54.16 Radiculopathy, lumbar region
CPT/HCPCS: G0463

== ENCOUNTER 2023-10-26 07:36 | Day surgery (SDC) | payer MEDICARE, SELFPAY ==
--- OUTSIDE RECORDS SUMMARY | 2023-10-26 07:38 | XMS_ITS | CCD ---
Author Name Unknown Address [address] [place] [address] Organization [facility] Care Team Providers Care Brickmason Name Role Phone MADAIY ., DR HORNER [...] HORNER Primary Care Unavailable HOY ., DR HORENR Admitting Unavailable HOY ., DR HORNER Attending [...] SOTO Referring Unavailable Evens Archer MD Attending Unavailjuan Ballard MD, Stefany Vines Attending Unavailable Nellie MUÑOZ, Stefany Vines Attending Unavailable Allergies Allergy Classification Reported Allergen(s) Allergy Type Date of Onset Reaction(s) Facility (3 sources) Penicillins; 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: [penicillins] Drug allergy (disorder) 10-25-2014 [facility] Repository (2 sources) HYDROcodone; 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: [HYDROcodone] Drug Allergy 10-25-2014 [facility] Repository (1 source) nabumetone; 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: [Relafen] Drug Allergy [facility] Repository (1 source) amLODIPine; 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: [AMLODIPINE] Drug Allergy 05-20-2023 [facility] Repository (1 source) nabumetone; 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: [NABUMETONE] Drug Allergy 10-25-2014 [facility] Repository Problems Active Problems Problem Classification [...] Onset: 04-24-2022 Episodic Other 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; 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: [FDC CURRENT USE OF ASPIRIN] Onset: 04-24-2022 Episodic [...] then as needed *Limit salt/sodium intake Normal [facility] Office Visiton 07-08-2023 Follow-up visit [id number] Chung Denton 1955 M Date Provider Department Center 07/08/2023 Kevin-BLAYNE DAILY CARD Nohemy Robb Family History Problem Relation Age of Onset Heart attack Paternal Grandfather Family Status - Relation Status Age at Paternal Grandfather Level of Service:78519 [place] OFFICE/OUTPATIENT ESTABLISHED [facility] 30-39 MIN Reason for Visit and Comments: Edema [[id number]] Normal [facility] ANESon 06-29-2023 ANES -- Attestation signed by Eliane Soto MD at 06/29/2023 9:56 AM Eliane Soto MD, MPH, [facility], [facility], [facility] Interventional Cardiology Pager Email: [email or web address] Patient: Donnie Denton Procedure Information Date/Time: 06/29/23 1030 Procedures: Coronary angiography (Bilateral) - per Maria G in pre-cert at [facility], this has already been authorized thru Aug 2023 - right femoral approach Right heart cath Location: [facility] 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 Additional Equipment Requests Normal [facility] HPon 06-29-2023 HP -- Attestation signed by Eliane Soto MD at 06/29/2023 9:57 AM Eliane Soto MD, MPH, [facility], [facility], [facility] Interventional Cardiology Pager Email: [email or web address] History Of Present Illness Donnie Denton is [...] He was evaluated by cardiothoracic surgery at [facility] and elected to pursue medical management [...] treated since 2014. 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 RN encouraged pt to voice any questions or concerns. Pt verbalizes no questions or concerns at this time. [facility] Orders Onlyon 06-17-2023 Orders Only [id number] Chung Denton [place] 1955 [facility] Provider Department Center 06/17/2023 Avi-DEIRDRE RIDLEY CARD Nohemy Hos Family History Problem Relation Age of Onset Heart attack Paternal Grandfather Family Status - Relation Status Age at Paternal Grandfather Normal [facility] Letter (Out)on 05-26-2023 Letter (Out) [id number] Chung Denton [place] 1955 [facility] Provider Department Center 05/26/2023 None-None [facility] AUTH [facility] Family History Problem Relation Age of Onset Heart attack Paternal Grandfather Family Status - Relation Status Age at Paternal Grandfather Normal [facility] Office Visiton 05-20-2023 Follow-up visit [id number] Chung Denton [place] 1955 [facility] Provider Department Center 05/20/2023 271-ELIANE SOTO VALERIANO Slater Hos Family History Problem Relation Age of Onset Heart attack Paternal Grandfather Family Status - Relation Status Age at Paternal Grandfather Level of Service:74699 [place] OFFICE/OUTPATIENT [facility] 60-74 MINUTES Normal [facility] Orders Onlyon 05-20-2023 Orders Only [id number] Chung Denton Adrian 1955 [facility] Provider Department Center 05/20/2023 HIMANSHU PRICE CARD Nohemy Hos Family History Problem Relation Age of Onset Heart attack Paternal Grandfather Family Status - Relation Status Age at Paternal Grandfather Normal [facility] Facesheeton 05-14-2023 Facesheet [id number] D:127 Normal [facility] Ambulatory Visit Summaryon 0 05-13-2023 Ambulatory Visit Summary DONNIE DENTON Adrian :1955 Visit Date:05/13/2023 Ambulatory Visit Instructions Your Care Team Attending Physician - LYNNETTE MUÑOZ, Pramod Campbell Primary Care Physician - Gianni MUÑOZ, Evens This Is Your Medications List Contact prescribing [...] Spondylosis of cervical spine Ureteral calculus Normal [facility] Physician Referralon 023 Physician Referral [id number] CD:127 Normal [facility] XR HIP RT 2 3V [...] ANTONI PENALOZA Date: 2022-11-13 22:38 Normal [facility] XR LSPINE MIN 4 VIEWSon 10-17 [...] paraspinous abnormality is seen. OTHER: Negative. IMPRESSION: Jazd-ub-ibxoowrl degenerative changes Electronically authenticated by: ANTONI TRACEY Date: 2022-11-14 07:58 Normal [facility] CREATININEon 11-11-2022 Creatinine [Mass/Vol] 1.04 mg/dL Normal 0.70-1.30 [facility] Comment on above: Performed By: #### C ASIF #### [facility] [address] [address] [address] Gianni Deluna EGFR-AF DOMINICAN >60 Normal >=60 [facility] Comment on above: Performed By: #### C ASIF #### [facility] [address] [address] [address] Gianni Deluna EGFR-NON AF DOMINICAN >60 Normal >=60 [facility] Comment on above: Performed By: #### C ASIF #### [facility] [address] [place] [address] CHEST W CONon [...] by: PA CROW Date: 2022-11-11 11:29 [facility] CONon 08-14-20 MRI [facility] CON EXAMINATION: MRI [facility] CON HISTORY: Cervical radiculopathy COMPARISON: No relevant [...] ANTONI TRACEY Date: 2022-08-14 09:19 Normal [facility] INSULINon 06-04-2022 Insulin 13.5 uIU/mL Normal 2.6-24.9 [facility] Comment on above: Performed By: #### L ACT #### [facility] [address] [place] [address] Dr. Gianni Deluna CBC AUTO DIFFon 06-03-2022 BASO # 0.1 103/ul Normal 0.0-0.1 [facility] Comment on above: Performed By: #### L ACT #### [facility] [address] [place] [address] Dr. Gianni Deluna Basophils/100 WBC (Bld) 1.2 % Normal 0.2-2.0 [facility] Comment on above: Performed By: #### L ACT #### [facility] [address] [place] [address] Dr. Gianni Deluna EO # 0.4 103/ul Normal 0.0-0.7 [facility] Comment on above: Performed By: #### L ACT #### [facility] [address] [place] [address] Dr. Gianni Deluna Eosinophils/100 WBC (Bld) 5.9 % Normal 0.9-7.0 [facility] Comment on above: Performed By: #### L ACT #### [facility] [address] [place] [address] Dr. Gianni Deluna Erythrocyte distribution width (RBC) [Ratio] 13.4 % Normal 11.0-15.0 [facility] Comment on above: Performed By: #### L ACT #### [facility] [address] [address] [address] Gianni Deluna Hematocrit (Bld) [Volume fraction] 39.6 % Critically low 42.0-54.0 [facility] Comment on above: Performed By: #### L ACT #### [facility] [address] [address] [address] Gianni Deluna Hemoglobin (Bld) [Mass/Vol] 12.8 g/dL Critically low 14.0-18.0 [facility] Comment on above: Performed By: #### L ACT #### [facility] [address] [address] [address] Gianni Deluna IG # 0.04 10e3/ul Critically high 0.00-0.03 [facility] Comment on above: Performed By: #### L ACT #### [facility] [address] [place] [address] Dr. Gianni Deluna IG % 0.7 % Critically high 0.0-0.5 [facility] Comment on above: Performed By: #### L ACT #### [facility] [address] [place] [address] Dr. Gianni Deluna LYMPH # 1.9 103/ul Normal 1.2-3.8 [facility] Comment on above: Performed By: #### L ACT #### [facility] [address] [place] [address] Dr. Gianni Deluna Lymphocytes/100 WBC (Bld) 31.7 % Normal 20.5-60.0 [facility] Comment on above: Performed By: #### L ACT #### [facility] [address] [place] [address] Dr. Gianni Deluna MANUAL DIFF REQ NO Normal [facility] Comment on above: Performed By: #### L ACT #### [facility] [address] [place] [address] Dr. Gianni Deluna MCH (RBC) [Entitic mass] 30.2 pg Normal 25.9-34.0 [facility] Comment on above: Performed By: #### L ACT #### [facility] [address] [place] [address] Dr. Gianni Deluna MCHC (RBC) [Mass/Vol] 32.3 g/dL Normal 29.9-35.2 [facility] Comment on above: Performed By: #### L ACT #### [facility] [address] [address] [address] Gianni Deluna MCV (RBC) [Entitic vol] 93.4 fL Normal 80.0-94.0 [facility] Comment on above: Performed By: #### L ACT #### [facility] [address] [address] [address] Gianni Deluna MONO # 0.7 103/ul Normal 0.3-0.8 [facility] Comment on above: Performed By: #### L ACT #### [facility] [address] [place] [address] Dr. Gianni Deluna Monocytes/100 WBC (Bld) 11.9 % Normal 1.7-12.0 [facility] Comment on above: Performed By: #### L ACT #### [facility] [address] [place] [address] Dr. Gianni Deluna NEUT # 2.9 103/ul Normal 1.4-6.5 [facility] Comment on above: Performed By: #### L ACT #### [facility] [address] [place] [address] Dr. Gianni Deluna Neutrophils/100 WBC (Bld) 48.6 % Normal 43.0-75.0 [facility] Comment on above: Performed By: #### L ACT #### [facility] [address] [address] [address] Gianni Deluna Platelet mean volume (Bld) [Entitic vol] 9.1 fL Critically low 9.5-13.5 [facility] Comment on above: Performed By: #### L ACT #### [facility] [address] [address] [address] Gianni Deluna PLT 168 103/ul Normal 150-450 [facility] Comment on above: Performed By: #### L ACT #### [facility] [address] [address] [address] Gianni Deluna RBC 4.24 106/ul Critically low 4.70-6.10 [facility] Comment on above: Performed By: #### L ACT #### [facility] [address] [address] [address] Gianni Deluna WBC 6.0 103/ul Normal 4.0-11.0 [facility] Comment on above: Performed By: #### L ACT #### [facility] [address] [address] [address] Gianni Deluna FREE THYROXINE INDEX T7on FTI 1.91 Normal 1.30-4.50 [facility] Comment on above: Performed By: #### L ACT #### [facility] [address] [place] [address] Dr. Gianni Deluna T3U 36.0 % Normal 33.0-40.0 [facility] Comment on above: Performed By: #### L ACT #### [facility] [address] [place] [address] Dr. Gianni Deluna T4 [Mass/Vol] 5.30 ug/dL Normal 4.50-12.10 [facility] Comment on above: Performed By: #### L ACT #### [facility] [address] [place] [address] Dr. Gianni Deluna GLYCOHEMOGLOBIN A1Con 2021 ADA RECOMMENDATION SEE BELOW Normal [facility] Comment on above: Result Comment: ADA RECOMMENDED LIMIT 4.0 - 6.0 ADA THERAPEUTIC TARGET < 7.0 ACTION SUGGESTED > 7.0 Performed By: #### D DIM #### [facility] [address] [place] [address] Dr. Gianni Deluna Glucose [Mass/Vol] 140 mg/dL Normal [facility] Comment on above: Performed By: #### D DIM #### [facility] [address] [place] [address] Dr. Gianni Deluna HbA1c (Bld) [Mass fraction] 6.5 % Critically high 4.5-6.2 [facility] Comment on above: Performed By: #### D DIM #### [facility] [address] [address] [address] Gianni Deluna LIPID PROFILEon 06-03-2022 CHOL-HDL RATIO NORM SEE BELOW Normal [facility] Comment on above: Result Comment: 3.3 - 4.4 LOW RISK 4.4 - 7.1 AVERAGE RISK 7.1 - 11.0 MODERATE RISK >11.0 HIGH RISK Performed By: #### T SH, T7, URIC, CMP, LIPID #### [facility] [address] [address] [address] Gianni Deluna Cholesterol [Mass/Vol] 104 mg/dL Normal <=200 [facility] Comment on above: Performed By: #### T SH, T7, URIC, CMP, LIPID #### [facility] [address] [address] [address] Gianni Deluna Cholesterol in HDL [Mass/Vol] 49 mg/dL Normal 40-60 [facility] Comment on above: Performed By: #### T SH, T7, URIC, CMP, LIPID #### [facility] [address] [address] [address] Gianni Deluna Cholesterol in LDL [Mass/Vol] 46.6 mg/dL Normal [facility] Comment on above: Performed By: #### T SH, T7, URIC, CMP, LIPID #### [facility] [address] [address] [address] Gianni Deluna Cholesterol.total/Ch olesterol in HDL [Mass ratio] 2.1 {ratio} Normal [facility] Comment on above: Performed By: #### T SH, T7, URIC, CMP, LIPID #### [facility] [address] [place] [address] Dr. Gianni Deluna HDL NORMAL > or = 60 mg/dl - LO W CARDIOVASCULAR RISK <40 mg/dl - HIGH CARDIOVASCULAR RISK Normal [facility] Comment on above: Performed By: #### T SH, T7, URIC, CMP, LIPID #### [facility] [address] [address] [address] Gianni Deluna LDL CALC NORMAL SEE BELOW Normal [facility] Comment on above: Result Comment: <100 mg/dl OPTIMAL 100 - 129 mg/dl NEAR OR ABOVE OPTIMAL 130 - 159 mg/dl BORDERLINE HIGH 160 - 189 mg/dl HIGH >190 mg/dl VERY HIGH Performed By: #### T SH, T7, URIC, CMP, LIPID #### [facility] [address] [address] [address] Gianni Deluna Triglyceride [Mass/Vol] 42 mg/dL Normal <=150 [facility] Comment on above: Performed By: #### T SH, T7, URIC, CMP, LIPID #### [facility] [address] [address] [address] Gianni Deluna VLDL CALC 8.4 mg/dL Normal [facility] Comment on above: Performed By: #### T SH, T7, URIC, CMP, LIPID #### [facility] [address] [address] [address] Gianni Deluna PROF 14(COMP METB)on 06-03- 022 Albumin [Mass/Vol] 2.9 g/dL Critically low 3.4-5.0 [facility] Comment on above: Performed By: #### T SH, T7, URIC, CMP, LIPID #### [facility] [address] [address] [address] Gianni Deluna Albumin/Globulin [Mass ratio] 0.8 {ratio} Normal [facility] Comment on above: Performed By: #### T SH, T7, URIC, CMP, LIPID #### [facility] [address] [address] [address] Gianni Deluna ALP [Catalytic activity/Vol] 127 U/L Critically high 46-116 [facility] Comment on above: Performed By: #### T SH, T7, URIC, CMP, LIPID #### [facility] [address] [address] [address] Gianni Deluna ALT [Catalytic activity/Vol] 23 U/L Normal 16-63 [facility] Comment on above: Performed By: #### T SH, T7, URIC, CMP, LIPID #### [facility] [address] [address] [address] Gianni Deluna Anion gap [Moles/Vol] 8.4 mmol/L Normal [facility] Comment on above: Performed By: #### T SH, T7, URIC, CMP, LIPID #### [facility] [address] [address] [address] Gianni Deluna AST [Catalytic activity/Vol] 21 U/L Normal 15-37 [facility] Comment on above: Performed By: #### T SH, T7, URIC, CMP, LIPID #### [facility] [address] [address] [address] Gianni Deluna Bilirubin [Mass/Vol] 0.5 mg/dL Normal 0.2-1.0 [facility] Comment on above: Performed By: #### T SH, T7, URIC, CMP, LIPID #### [facility] [address] [place] [address] Dr. Gianni Deluna Calcium [Mass/Vol] 8.3 mg/dL Critically low 8.5-10.1 [facility] Comment on above: Performed By: #### T SH, T7, URIC, CMP, LIPID #### [facility] [address] [address] [address] Gianni Deluna Chloride [Moles/Vol] 107 mmol/L Normal 98-107 [facility] Comment on above: Performed By: #### T SH, T7, URIC, CMP, LIPID #### [facility] [address] [place] [address] Dr. Gianni Deluna CO2 [Moles/Vol] 30.6 mmol/L Normal 21.0-32.0 [facility] Comment on above: Performed By: #### T SH, T7, URIC, CMP, LIPID #### [facility] [address] [place] [address] Dr. Gianni Deluna Creatinine [Mass/Vol] 0.93 mg/dL Normal 0.70-1.30 [facility] Comment on above: Performed By: #### T SH, T7, URIC, CMP, LIPID #### [facility] [address] [place] [address] Dr. Gianni Deluna EGFR-AF DOMINICAN >60 Normal >=60 [facility] Comment on above: Performed By: #### T SH, T7, URIC, CMP, LIPID #### [facility] [address] [address] [address] Gianni Deluna EGFR-NON AF DOMINICAN >60 Normal >=60 [facility] Comment on above: Performed By: #### T SH, T7, URIC, CMP, LIPID #### [facility] [address] [address] [address] Gianni Deluna Globulin (S) [Mass/Vol] 3.5 g/dL Normal [facility] Comment on above: Performed By: #### T SH, T7, URIC, CMP, LIPID #### [facility] [address] [address] [address] Gianni Deluna Glucose [Mass/Vol] 114 mg/dL Critically high 74-106 [facility] Comment on above: Performed By: #### T SH, T7, URIC, CMP, LIPID #### [facility] [address] [place] [address] Dr. Gianni Deluna Potassium [Moles/Vol] 4.0 mmol/L Normal 3.5-5.1 [facility] Comment on above: Performed By: #### T SH, T7, URIC, CMP, LIPID #### [facility] [address] [address] [address] Gianni Deluna Protein [Mass/Vol] 6.4 g/dL Normal 6.4-8.2 [facility] Comment on above: Performed By: #### T SH, T7, URIC, CMP, LIPID #### [facility] [address] [address] [address] Gianni Deluna Sodium [Moles/Vol] 142 mmol/L Normal 136-145 [facility] Comment on above: Performed By: #### T SH, T7, URIC, CMP, LIPID #### [facility] [address] [address] [address] Gianni Deluna Urea nitrogen [Mass/Vol] 11.0 mg/dL Normal 7.0-18.0 [facility] Comment on above: Performed By: #### T SH, T7, URIC, CMP, LIPID #### [facility] [address] [place] [address] Dr. Gianni Deluna Urea nitrogen/Creatinine [Mass ratio] 11.8 mg/mg Normal [facility] Comment on above: Performed By: #### T SH, T7, URIC, CMP, LIPID #### [facility] [address] [place] [address] Dr. Gianni Deluna TSHon 06-03-2022 TSH 0.814 uIU/mL Normal 0.358-3.740 [facility] Comment on above: Performed By: #### L ACT #### [facility] [address] [place] [address] Dr. Gianni Deluna URIC ACID SERUMon 06-03-2022 Urate [Mass/Vol] 5.2 mg/dL Normal 3.5-7.2 [facility] Comment on above: Performed By: #### T SH, T7, URIC, CMP, LIPID #### [facility] [address] [place] [address] Dr. Gianni Deluna CARDIAC ALEX 3-6on 2 CK [Catalytic activity/Vol] 82 U/L Normal 39-308 [facility] Comment on above: Performed By: #### L ACT #### [facility] [address] [place] [address] Dr. Gianni Deluna CK.MB [Mass/Vol] 2.40 ng/mL Normal <=3.60 [facility] Comment on above: Performed By: #### L ACT #### [facility] [address] [place] [address] Dr. Gianni Deluna HSTROP 8.6 pg/mL Normal 4.0-76.1 [facility] Comment on above: Result Comment: CUT- OFF POINTS HAVE BEEN ESTABLISHED BASED ON THE FOURTH UNIVERSAL DEFINITIONS OF MYOCARDIAL INFARCTION. THE UPPER REFERENCE LIMIT (URL) OF TROPONIN, DEFINED THE 99TH PERCENTILE OF cTnI DISTRIBUTION IN A REFERENCE POPULATION, HAS BEEN CONFIRMED THE DECISION THRESHOLD FOR NM DIAGNOSIS. Performed By: #### L ACT #### [facility] [address] [place] [address] ABD/PELV W CONon [...] by: JAIMIE COOPER Date: 2022-04-21 00:38 Normal [facility] LACTATE/LACTIC ACIDon 2021 Lactate [Moles/Vol] 2.2 mmol/L Critically high 0.4-1.9 [facility] Comment on above: Performed By: #### L ACT #### [facility] [address] [address] [address] Gianni Deluna AMYLASEon 04-20-2022 Amylase [Catalytic activity/Vol] 139 U/L Critically high 25-115 [facility] Comment on above: Performed By: #### L ACT #### [facility] [address] [address] [address] Gianni Deluna CARDIAC ALEX ADMITon 022 CK [Catalytic activity/Vol] 88 U/L Normal 39-308 [facility] Comment on above: Performed By: #### C MADM #### [facility] [address] [address] [address] Gianni Deluna CK.MB [Mass/Vol] 1.82 ng/mL Normal <=3.60 [facility] Comment on above: Performed By: #### C MADM #### [facility] [address] [place] [address] Dr. Gianni Deluna HSTROP 7.2 pg/mL Normal 4.0-76.1 [facility] Comment on above: Result Comment: CUT- OFF POINTS HAVE BEEN ESTABLISHED BASED ON THE FOURTH UNIVERSAL DEFINITIONS OF MYOCARDIAL INFARCTION. THE UPPER REFERENCE LIMIT (URL) OF TROPONIN, DEFINED THE 99TH PERCENTILE OF cTnI DISTRIBUTION IN A REFERENCE POPULATION, HAS BEEN CONFIRMED THE DECISION THRESHOLD FOR NM DIAGNOSIS. Performed By: #### C MADM #### [facility] [address] [place] [address] Dr. Gianni Deluna FILIBERTO 93 ng/mL Normal 16-96 [facility] Comment on above: Performed By: #### C MADM #### [facility] [address] [place] [address] Dr. Gianni Deluna CBC AUTO DIFFon 04-20-2022 BASO # 0.0 103/ul Normal 0.0-0.1 [facility] Comment on above: Performed By: #### C BC #### [facility] [address] [place] [address] Dr. Gianni Deluna Basophils/100 WBC (Bld) 0.3 % Normal 0.2-2.0 [facility] Comment on above: Performed By: #### C BC #### [facility] [address] [place] [address] Dr. Gianni Deluna EO # 0.0 103/ul Normal 0.0-0.7 [facility] Comment on above: Performed By: #### C BC #### [facility] [address] [place] [address] Dr. Gianni Deluna Eosinophils/100 WBC (Bld) 0.1 % Critically low 0.9-7.0 [facility] Comment on above: Performed By: #### C BC #### [facility] [address] [place] [address] Dr. Gianni Deluna Erythrocyte distribution width (RBC) [Ratio] 13.5 % Normal 11.0-15.0 [facility] Comment on above: Performed By: #### C BC #### [facility] [address] [place] [address] Dr. Gianni Deluna Hematocrit (Bld) [Volume fraction] 45.8 % Normal 42.0-54.0 [facility] Comment on above: Performed By: #### C BC #### [facility] [address] [place] [address] Dr. Gianni Deluna Hemoglobin (Bld) [Mass/Vol] 15.3 g/dL Normal 14.0-18.0 [facility] Comment on above: Performed By: #### C BC #### [facility] [address] [place] [address] Dr. Gianni Deluna IG # 0.05 10e3/ul Critically high 0.00-0.03 [facility] Comment on above: Performed By: #### C BC #### [facility] [address] [place] [address] Dr. Gianni Deluna IG % 0.5 % Normal 0.0-0.5 [facility] Comment on above: Performed By: #### C BC #### [facility] [address] [place] [address] Dr. Gianni Deluna LYMPH # 0.8 103/ul Critically low 1.2-3.8 [facility] Comment on above: Performed By: #### C BC #### [facility] [address] [place] [address] Dr. Gianni Deluna Lymphocytes/100 WBC (Bld) 7.7 % Critically low 20.5-60.0 [facility] Comment on above: Performed By: #### C BC #### [facility] [address] [place] [address] Dr. Gianni Deluna MANUAL DIFF REQ NO Normal [facility] Comment on above: Performed By: #### C BC #### [facility] [address] [place] [address] Dr. Gianni Deluna MCH (RBC) [Entitic mass] 30.4 pg Normal 25.9-34.0 [facility] Comment on above: Performed By: #### C BC #### [facility] [address] [address] [address] Gianni Deluna MCHC (RBC) [Mass/Vol] 33.4 g/dL Normal 29.9-35.2 [facility] Comment on above: Performed By: #### C BC #### [facility] [address] [address] [address] Gianni Deluna MCV (RBC) [Entitic vol] 90.9 fL Normal 80.0-94.0 [facility] Comment on above: Performed By: #### C BC #### [facility] [address] [address] [address] Gianni Deluna MONO # 0.4 103/ul Normal 0.3-0.8 [facility] Comment on above: Performed By: #### C BC #### [facility] [address] [address] [address] Gianni Deluna Monocytes/100 WBC (Bld) 3.3 % Normal 1.7-12.0 [facility] Comment on above: Performed By: #### C BC #### [facility] [address] [address] [address] Gianni Deluna NEUT # 9.7 103/ul Critically high 1.4-6.5 [facility] Comment on above: Performed By: #### C BC #### [facility] [address] [address] [address] Gianni Deluna Neutrophils/100 WBC (Bld) 88.1 % Critically high 43.0-75.0 [facility] Comment on above: Performed By: #### C BC #### [facility] [address] [address] [address] Gianni Deluna Platelet mean volume (Bld) [Entitic vol] 8.9 fL Critically low 9.5-13.5 [facility] Comment on above: Performed By: #### C BC #### [facility] [address] [address] [address] Gianni Deluna PLT 198 103/ul Normal 150-450 [facility] Comment on above: Performed By: #### C BC #### [facility] [address] [address] [address] Gianni Deluna RBC 5.04 106/ul Normal 4.70-6.10 [facility] Comment on above: Performed By: #### C BC #### [facility] [address] [address] [address] Gianni Deluna WBC 11.0 103/ul Normal 4.0-11.0 [facility] Comment on above: Performed By: #### C BC #### [facility] [address] [address] [address] Gianni Deluna Covid-19 PCR (CVDTBH)on SARS-CoV-2 (COVID-19) RNA NICHOLE+probe Ql (Unsp spec) Not detected Normal NOT DETECTED [facility] Comment on above: Result Comment: When [...] for this test is supported by the [place] of Health and Human Service's declaration that [...] used). Performed By: #### C VDTBH #### [facility] [address] [place] [address] Dr. Gianni Deluna D-DIMERon 04-20-2022 D-DIMER 0.37 mg/L FEU Normal <=0.59 [facility] Comment on above: Performed By: #### D DIM #### [facility] [address] [place] [address] Dr. Gianni Deluna D-DIMER COMMENTS SEE BELOW Normal [facility] Comment on above: Result Comment: Incr [...] hospitalization. Performed By: #### D DIM #### [facility] [address] [place] [address] Dr. Gianni Deluan LACTATE/LACTIC ACIDon 2021 Lactate [Moles/Vol] 2.3 mmol/L Critically high 0.4-1.9 [facility] Comment on above: Performed By: #### L ACT #### [facility] [address] [place] [address] Dr. Gianni Deluna LIPASEon 04-20-2022 Lipase [Catalytic activity/Vol] 48.0 U/L Critically low 73.0-393.0 [facility] Comment on above: Performed By: #### L ACT #### [facility] [address] [place] [address] Dr. Gianni Deluna PROF 14(COMP METB)on 022 Albumin [Mass/Vol] 3.9 g/dL Normal 3.4-5.0 [facility] Comment on above: Performed By: #### L ACT #### [facility] [address] [place] [address] Dr. Gianni Deluna Albumin/Globulin [Mass ratio] 1.0 {ratio} Normal [facility] Comment on above: Performed By: #### L ACT #### [facility] [address] [place] [address] Dr. Gianni Deluna ALP [Catalytic activity/Vol] 127 U/L Critically high 46-116 [facility] Comment on above: Performed By: #### L ACT #### [facility] [address] [place] [address] Dr. Gianni Deluna ALT [Catalytic activity/Vol] 27 U/L Normal 16-63 [facility] Comment on above: Performed By: #### L ACT #### [facility] [address] [address] [address] Gianni Deluna Anion gap [Moles/Vol] 15.9 mmol/L Normal [facility] Comment on above: Performed By: #### L ACT #### [facility] [address] [address] [address] Gianni Deluna AST [Catalytic activity/Vol] 27 U/L Normal 15-37 [facility] Comment on above: Performed By: #### L ACT #### [facility] [address] [address] [address] Gianni Deluna Bilirubin [Mass/Vol] 0.9 mg/dL Normal 0.2-1.0 [facility] Comment on above: Performed By: #### L ACT #### [facility] [address] [address] [address] Gianni Deluna Calcium [Mass/Vol] 8.9 mg/dL Normal 8.5-10.1 [facility] Comment on above: Performed By: #### L ACT #### [facility] [address] [address] [address] Gianni Deluna Chloride [Moles/Vol] 103 mmol/L Normal 98-107 [facility] Comment on above: Performed By: #### L ACT #### [facility] [address] [address] [address] Gianni Deluna CO2 [Moles/Vol] 24.2 mmol/L Normal 21.0-32.0 [facility] Comment on above: Performed By: #### L ACT #### [facility] [address] [address] [address] Gianni Deluna Creatinine [Mass/Vol] 1.27 mg/dL Normal 0.70-1.30 [facility] Comment on above: Performed By: #### L ACT #### [facility] [address] [address] [address] Gianni Deluna EGFR-AF DOMINICAN >60 Normal >=60 [facility] Comment on above: Performed By: #### L ACT #### [facility] [address] [address] [address] Gianni Deluna EGFR-NON AF DOMINICAN 56 mL/min/1.73m2 Critically low >=60 [facility] Comment on above: Performed By: #### L ACT #### [facility] [address] [address] [address] Gianni Deluna Globulin (S) [Mass/Vol] 3.9 g/dL Normal [facility] Comment on above: Performed By: #### L ACT #### [facility] [address] [address] [address] Gianni Deluna Glucose [Mass/Vol] 145 mg/dL Critically high 74-106 [facility] Comment on above: Performed By: #### L ACT #### [facility] [address] [address] [address] Gianni Deluna Potassium [Moles/Vol] 4.1 mmol/L Normal 3.5-5.1 [facility] Comment on above: Performed By: #### L ACT #### [facility] [address] [address] [address] Gianni Deluna Protein [Mass/Vol] 7.8 g/dL Normal 6.4-8.2 [facility] Comment on above: Performed By: #### L ACT #### [facility] [address] [address] [address] Gianni Deluna Sodium [Moles/Vol] 139 mmol/L Normal 136-145 [facility] Comment on above: Performed By: #### L ACT #### [facility] [address] [address] [address] Gianni Deluna Urea nitrogen [Mass/Vol] 22.0 mg/dL Critically high 7.0-18.0 [facility] Comment on above: Performed By: #### L ACT #### [facility] [id number] Gianni Deluna Urea nitrogen/Creatinine [Mass ratio] 17.3 mg/mg Normal [facility] Comment on above: Performed By: #### L ACT #### [facility] [address] [address] [address] Gianni Deluna XR ABD FLAT UP_PA [...] by: JAIMIE COOPER Date: 2022-04-20 21:58 Normal [facility] US RICHELLE DOP LEG LTon 03-18-20 22 US RICHELLE DOP LEG LT Ultrasound venous [...] by: LAWANDA VEE Date: 2022-03-18 13:25 Normal [facility] RICHELLE DOP LEG LTon 12-08-19 US RICHELLE [...] ANTONI JOLLEY Date: 2021-12-06 22:57 Normal [facility] Encounters Encounter Date Encounter Type Care Provider Facility Start: 09-21-2023 End: 09-22-2023 ambulatory Stefany Ballard MD Facility:[facility] Start: 08-31-2023 End: 09-01-2023 ambulatory Stefany Ballard MD Facility:[facility] Start: 07-17-2023 ambulatory Evens Archer MD Facility:[facility] Start: 07-08-2023 End: 07-08-2023 ambulatory [facility] Start: 06-29-2023 End: 06-29-2023 ambulatory [facility] Start: 06-29-2023 End: 06-29-2023 Encounter for other preprocedural examination [facility] Start: 06-17-2023 Encounter for other preprocedural examination [facility] Start: 05-20-2023 End: 05-20-2023 ambulatory [facility] Start: 05-13-2023 End: 05-14-2023 ambulatory Pramod HAYWARD Facility:[facility] Start: 05-08-2023 ambulatory Pramod HAYWARD [facility] Start: 04-29-2023 ambulatory Pramod HAYWARD Facility:[facility] Start: 11-13-2022 End: 11-14-[address] EVENS ARCHER . Facility: Start: 11-11-2022 End: 11-12-[address] EVENS [...] Comment on above: Performed By: #### P [facility] #### [facility] [address] [place] [address] Dr. Gianni Deluna Payers Date Payer Category Payer Unknown 2014 Unknown [id number] Self-pay [id number] 1959 Unknown [id number] 1954 Unknown [id number] 2.16.84 [id number] 1954 Unknown [id number] 2.16.84 [id number] 1954 Unknown [id number] 2.16.84 [id number] 1954 Unknown [id number] 2.16.84 0.1.505537.3.579.2.59 1954 Unknown [id number] 2.16.84 0.1.049679.3.579.2.59 1954 Unknown [id number] 2.16.84 0.1.230252.3.579.2.59 1954 Unknown [id number] 2.16.84 0.1.136772.3.579.2.593 1954 Unknown [id number] 2.16.84 0.1.160697.3.579.2.593 1954 Unknown [id number] 2.16.8 40.1.525312.3.579.2.727 1954 Unknown [id number] 2.16.8 40.1.682412.3.579.2.727 1954 Unknown [id number] 2.16.8 40.1.108964.3.579.2.727 1954 Unknown [id number] 2.16. [id number] 1954 Unknown [id number] 2.16. [id number] Progress note 07-08-2023 Note Date & Type Note Facility 07-08-2023 Note Cardiovascular Medic [facility] SUBJECTIVE Chief Complaint Patient presents with [...] Final Atrial Rate 06/29/2023 47 BPM Final IA Interval 06/29/2023 154 ms Final QRS DURATION 06/29/2023 82 ms Final QT Interval 06/29/2023 482 ms Final QTC CALCULATION(BAZETT) 06/29/2023 426 ms Final P Max 06/29/2023 16 degrees Final R-Max 06/29/2023 55 degrees Final T Wave Max 06/29/2023 41 degrees Final No results found for: EXTCMP, BMPR1A, CBCDIF, BNP, BNP, LASAP, RED Testing/Procedures: No echocardiogram results found for the past 14 days No echocardiogram results found for the past 12 months Encounter Date: 06/29/23 ECG 12 lead Result Value Ventricular Rate 47 Atrial Rate 47 IA Interval 154 QR (more content not included)... [facility] Progress note 07-08-2023 Note Date & [...] All other systems reviewed and are negative. [facility] Progress note 06-29-2023 Note Date & [...] inhibitor Follow-up with Dr. Soto in the [place] office in the next 2 to 4 weeks PROCEDURES: Ultrasound-guided access to the right common femoral artery, limited femoral angiography, ultrasound-guided access to the right common femoral vein, right heart catheterization, bilateral selective coronary angiography, placement of a 6 [place] Mynx alterations tailor closure device METHODS: After risks, benefits, and [...] micropuncture kit was upsized to a 6 Angolan 11 cm sheath. Angiography via the sheath [...] procedure. All catheters were removed. A 5 [place] Mynx closure device was deployed per protocol [...] device. INDICATIONS: Preoperative evaluation, coronary artery disease. [facility] Progress note 05-20-2023 Note Date & Type Note Facility 05-20-2023 Note [facility] Clinic Note Chief Complaint: New patient here to establish care. Ref from Dr. Archer for surgery clearance. He has hx of CAD and previously followed with [facility] back in 2014. He has [...] percutaneous revascularization. He was evaluated at the [facility] and [facility] cardiothoracic surgery. It was elected to continue [...] and a reasonable target. Was seen at [facility]; single-vessel coronary artery disease with a [...] LAD. This wo (more content not included)... [facility] Clinical Note 05-13-2023 Note Date & [...] 10 mg Tab (more content not included)... [facility] Comment on above: Result [...] and content) DATE CREATED AUTHOR 11/21/2022 [facility] DATE CREATED AUTHOR AUTHOR'S ORGANIZ ATION 05/21/2023 [facility] DATE CREATED AUTHOR AUTHOR'S ORGANIZ ATION 07/10/2023 [facility] DATE CREATED AUTHOR AUTHOR'S ORGANIZ ATION 10/23/2023 [facility] FOR RECORDS PERTAINING TO PATIENTS WHO [...] BE BASED ON THE PRIMARY CLINICAL RECORDS. [facility] [employer] [facility]. provides no warranty or guarantee of the accuracy or completeness of information in this document.
[2023-10-26 07:52] VITALS: BP 140/70; PULSE 53; RESP 16; TEMP 36.1; O2SAT 100
[2023-10-26 08:38] VITALS: BP 158/69; PULSE 54; RESP 18; O2SAT 98
[2023-10-26 08:42] VITALS: BP 173/77; PULSE 55; RESP 18; O2SAT 94
--- NOTE | 2023-10-26 08:42 | P.ON_ITS ---
Date of procedure: 10/26/23 Pre-op diagnosis: Lumbar stenosis with neurogenic claudication Post-op diagnosis: same as pre-op Procedure: Procedure: Right L4-5, L5-S1 transforaminal epidural steroid injection Medications: Bupivacaine 0.25% 2cc, lidocaine 2% 1cc, depomedrol 40mg The patient was seen and examined in the preoperative holding area.? Informed consent was obtained and placed on the chart.? Patient was brought to the medical procedure unit and placed in the prone position where a timeout was completed verifying the correct patient, procedure site, position, and planned special equipment using sterile aseptic technique.? Under direct fluoroscopic visualization a 25-gauge Quincke tipped spinal needle was advanced to the designated neural foramen where contrast dye was injected to show adequate spread.? The needle was inserted at level right L4-5. There was no evidence of vascular or adverse uptake.? Epidural spread was appreciated.? The above- mentioned injectate was then placed in a 1.5 mL aliquot preceded by negative aspiration.? The needle was removed. The needle was inserted and the procedure repeated at level right L5-S1.? The surgery site was covered.? Patient was taken to the postprocedural recovery area and monitored for an appropriate length of t dewey before found suitable for discharge in the accompaniment of a responsible adult. Anesthesia: Local Surgeon: Stefany Ballard Pathology: none sent Condition: stable Disposition: no change
[2023-10-26] MEDS: BUPIVACAINE HCL 0.25% PF 25 MG/10 ML VIAL INJ (08:44)
[2023-10-26] MEDS: 0.9 % SODIUM CHLORIDE 10 ML INJ (08:44)
[2023-10-26] MEDS: LIDOCAINE HCL 2% PF 100 MG/5 ML VIAL 3 ML INJ (08:45)
[2023-10-26] MEDS: IOHEXOL 240 MG/ML - 10 ML VIAL 12 MG INJ (08:45)
[2023-10-26] MEDS: METHYLPREDNISOLONE ACETATE 40 MG/ML VIAL INJ (08:47)
== END 2023-10-26 08:46 | disposition home or self-care (01) ==
PROVIDERS: PCP Family Medicine; Visit Provider Anesthesiology
DX: M48.062 Spinal stenosis, lumbar region with neurogenic claudication (principal)
CPT/HCPCS: 64483; 64484; J1030; Q9966

== ENCOUNTER 2023-11-11 09:05 | Outpatient (OUT) | payer MEDICARE, SELFPAY ==
--- NOTE | 2023-11-11 08:55 | PM.CN ---
Consult Note: HPI Data of Consult Patient: known to practice within the last 3 years Consult date: 08/06/23 Requesting Physician: Nat Benedict NP Primary Care Provider: Eriberto Archer MD Consult Narrative Reason for consult: chronic low back pain Narrative: Donnie Denton a pleasant 68 year old male presents for evaluation and management of chronic lumbar pain, lumbar stenosis with NC, lumbar radiculopathy. Patient has failed to benefit from conservative measures, PT/HEP greater than 6 weeks. Patient underwent right L4-5 L5-S1 TFESI with steroid rotation and is finding 60-70% improvement ongoing. In the past bilateral L4-5 L5-S1 facet medial branch block #1 with 80-90% immediate pain relief in lumbar spine and functional improvement lasting hours after the procedure, noted improvement in ambulation and posture. Patient reports mild to moderate low back/right hip pain, 2/10 today increasing with standing walking lying flat, decreased with sitting. Reports moderate improvment from current medication regimen without side effects cc:: CC: Nat Benedict NP Review of Systems ROS Status of ROS 10 or more systems reviewed and unremarkable except as noted in history and below Musculoskeletal Reports: back pain PFSH PFSH Medical History (Updated 09/30/23 @ 09:42 by Nat Benedict NP) Hypothyroid ?E03.9 - Hypothyroidism, unspecified (ICD-10) Thrombosis ?I82.90 - Acute embolism and thrombosis of unspecified vein (ICD-10) History of angina ?Z86.79 - Personal history of other diseases of the circulatory system (ICD-10) Hypertension ?I10 - Essential (primary) hypertension (ICD-10) Surgical History History of fusion of cervical spine ?Z98.1 - Arthrodesis status (ICD-10) History of appendectomy ?Z90.49 - Acquired absence of other specified parts of digestive tract (ICD-10) Hx of tonsillectomy ?Z90.89 - Acquired absence of other organs (ICD-10) Meds Home Medications and Allergies Home Medications ?Medication ?Instructions ?Recorded ?Confirmed ?Type aspirin 325 mg tablet 325 mg PO DAILY 08/06/23 10/26/23 History atorvastatin 40 mg tablet 40 mg PO DAILY 08/06/23 10/26/23 History carvedilol 25 mg tablet 25 mg PO Q12H 08/06/23 10/26/23 History furosemide 20 mg tablet 20 mg PO DAILY PRN edema 08/06/23 10/26/23 History lansoprazole 15 mg delayed 15 mg PO Q12H 08/06/23 10/26/23 History release,disintegrating tablet levothyroxine 50 mcg tablet 50 mcg PO QDAY 08/06/23 10/26/23 History (Synthroid) nitroglycerin 0.4 mg sublingual 0.4 mg sublingual Q5M 08/06/23 10/26/23 History tablet ranolazine 500 mg tablet,extended 500 mg PO Q12H 08/06/23 10/26/23 History release,12 hr tizanidine 4 mg tablet 4 mg PO BEDTIME 08/06/23 10/26/23 History zolpidem 10 mg tablet 10 mg PO QDAY 08/06/23 10/26/23 History celecoxib 100 mg capsule 100 mg PO Q12H 08/31/23 10/26/23 History Allergies Allergy/AdvReac Type Severity Reaction Status Date / Time Penicillins Allergy Verified 10/26/23 07:54 Exam Constitutional Documenting provider has reviewed patient's vital signs: yes Common normals: no apparent distress, oriented x3, healthy appearing, alert and well nourished Exam limitations: other limitations General appearance: cooperative Orientation/consciousness: Yes awake, Yes oriented to person, Yes oriented to place and Yes oriented to time [facility] Common normals: normocephalic, hearing grossly normal bilaterally and moist oral mucous membranes Head and scalp: normocephalic Eye Common normals: PERRL Pupil: PERRL Neck & C-Spine Common normals: full ROM General: normal visual inspection Chest Common normals: inspection of chest normal Respiratory Common normals: normal respiratory effort, no retractions and no use of accessory muscles Back & Pelvis Lumbar spine/lower back: ROM limited, pain with ROM and straight leg raise negative bilaterally Other: bilateral facet loading right greater than left no radiculopathy noted on exam strength 5/5 in BLE Extremity Common normals: normal to inspection and full ROM Neuro Common normals: oriented x3, CN's II-XII intact bilaterally, moves all extremities, no focal motor deficits, no sensory deficits noted and deep tendon reflexes 2+ bilaterally Sensorium/orientation: alert Gait (neuro): normal gait Motor exam: strength 5/5 throughout and no movement abnormalities noted Psych Common normals: mental status grossly normal, thought process normal, cooperative, affect normal, speech normal and activity/motor behavior normal Speech: normal speech Thought process: normal thought process Results Additional Findings Additional findings: If on a controlled substance or opioids, I have checked an [place] report on this patient and there are no aberrancies noted in the prescribing history.??If on a controlled substance or opioid a drug screen was completed and reviewed within the last year, and if there has not been a drug screen completed we ordered one today to monitor higher risk, state monitored pain medication use. As part of providing excellent, safe, comprehensive care, the following was completed at our patient's visit: 1. A medication reconciliation and review to ensure accurate knowledge of current/active medications, including asking our patients to inform us about any [id number] medications or herbal remedies/nutritional supplements/alternative remedies. 2. A review to specifically ensure our patients have had annual screening for screening for depression, screening for tobacco use, and screening for unhealthy alcohol use. For concerning screenings had a discussion with the patient, provided patient education, and recommended follow-up with primary care provider when appropriate. If patient noted with a risk of falling, they received education on strength, gait, and balance training to prevent future risk of falling. Assessment and Plan Assessment and Plan (1) Lumbar spondylosis: Assessment and Plan: The patient has had over 3 months of moderate to severe low back pain with functional impairment and inadequate response to conservative care including NSAIDS (unless there are contraindication such as concurrent blood thinners), multiple oral or topical pain medications, and home exercise program/physical therapy.? Patient has completed >6 weeks of guided home exercise program and/or formal physical therapy program without relief of their symptoms.? I have reviewed the imaging of the lumbar spine and no red flags were identified.? The imaging reveals radiographic findings consistent with lumbar spondylosis We discussed the risks and benefits of the procedure with the patient, and we are NOT planning on using sedation as outlined in the guidelines from Medicare unless there is a documented reason that sedation would be strongly recommended.?? The procedure will be completed with fluoroscopic guidance.? (2) Myofascial pain: (3) Lumbar stenosis with neurogenic claudication: (4) Lumbar radiculopathy: Plan Right L4-5, L5-S1 transforaminal epidural steroid injection with depomedrol providing moderate to significant ongoing relief continue current medications, tolerating well without side effect recommend bilateral L4-5 L5-S1 facet medial branch block #2 working towards thermal RFA, declining at this time can call to schedule f/u 3 months, sooner if needed
--- OUTSIDE RECORDS SUMMARY | 2023-11-11 09:31 | XMS_ITS | CCD ---
Author Organization [facility] Care Team Providers Care Auto Parker Name Role Phone MADAIY ., DR HORNER Admitting Unavailable HOY ., DR HORNER Attending Unavailable HOY ., DR HORNER Primary Care Unavailable HOY ., DR HORNER Consulting Unavailable HOY ., DR HORNER Primary Care Unavailable HOY ., DR HORNER Admitting Unavailable HOY ., DR HORNER Attending Unavailable HOY ., DR HORNER Consulting Unavailable WEST, DR ANTONI Matnilla Consulting Unavailable HOY ., DR HORNER Primary Care Unavailable HOY ., DR HORNER Admluke Unavailable HOY ., DR HORNER Attending Unavailable HOY ., DR HORNER Consulting Unavailable LAITHER, DR PA Campbell Consulting Unavailable HOY ., [...] HORNER Attending Unavailable HOY ., DR HORNER Admitting Unavailable HOY ., DR HORNER Consulting Unavailable LAWANDA VEE Consulting Unavailable Pramod HAYWARD Attending Unavailable ELTAHAWY, EHAB Attending Unavailable ELTAHAWY, EHAB Admitting Unavailable [place]HAWY, EHAB Attending Unavailable BLAYNE DAILY Attending Unavailable ELTAHAWY, EHAB Referring Unavailable Nellie MUÑOZ, Stefany Vines Attending Unavailable Nellie MUÑOZ, Stefany Vines Attending Unavailable Nellie MUÑOZ, Stefany Vines Attending Unavailable Gianni MUÑOZ, Evens Benavidez Attending Unavaila ble Allergies Allergy Classification Reported Allergen(s) Allergy Type Date of Onset Reaction(s) Facility (3 sources) Penicillins; 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: [penicillins] Drug allergy (disorder) 10-25-2014 [facility] Repository (2 sources) HYDROcodone; 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: [HYDROcodone] Drug Allergy 10-25-2014 [facility] Repository (1 source) nabumetone; 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: [Relafen] Drug Allergy [facility] Repository (1 source) amLODIPine; 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: [AMLODIPINE] Drug Allergy 05-20-2023 [facility] Repository (1 source) nabumetone; 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: [NABUMETONE] Drug Allergy 10-25-2014 [facility] Repository Problems Active Problems Problem Classification Problem Date Documented Date Episodic/Chronic Coronary atherosclerosis and other heart disease (3 sources) Atherosclerotic heart disease of [place] coronary artery without angina pectoris; 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: [Unstable [...] Onset: 04-24-2022 Episodic Other aftercare (1 source) senior care (current) use of 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; 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] Onset: 04-24-2022 Episodic [...] then as needed *Limit salt/sodium intake Normal [facility] Office Visiton 07-08-2023 Follow-up visit [id number] Chung Denton 1955 M Date Provider Department [place] 07/08/2023 166-BLAYNE DAILY CARD [facility] Family History Problem Relation Age of Onset Heart attack Paternal Grandfather Family Status - Relation Status Age at Paternal Grandfather Level of Service:08626 [place] OFFICE/OUTPATIENT ESTABLISHED [facility] 30-39 MIN Reason for Visit and Comments: Edema [[id number]] Normal [facility] ANESon 06-29-2023 ANES -- Attestation signed by Eliane Murillo MD at 06/29/2023 9:56 AM Eliane Murillo MD, MPH, [facility], [facility], [facility] Interventional Cardiology Pager Email: [email or web address] Patient: Donnie Denton Procedure Information Date/Time: 06/29/23 1030 Procedures: Coronary angiography (Bilateral) - per Maria G in pre-cert at [facility], this has already been authorized thru Aug 2023 - right femoral approach Right heart cath Location: [facility] / [facility] (Cath) Providers: Eliane Murillo MD Clinical information reviewed: Allergies Meds Physical Exam Airway Mallampati: III Cardiovascular Rhythm: regular Rate: normal Dental Pulmonary Breath sounds clear to auscultation Abdominal Anesthesia Plan ASA 3 other (Moderate sedation) Anesthetic plan and risks discussed with patient. Use of blood products discussed with patient who consented to blood products. Plan discussed with fellow and attending. Additional Equipment Requests Normal [facility] HPon 06-29-2023 HP -- Attestation signed by Eliane Murillo MD at 06/29/2023 9:57 AM Eliane Murillo MD, MPH, [facility], [facility], [facility] Interventional Cardiology Pager Email: [email or web address] History Of Present Illness Donnie Denton [...] He was evaluated by cardiothoracic surgery at [facility] and elected to pursue medical management at [...] treated since 2014. Meaghan Mukherjee DO, MPH Feed Handler [facility] Nabila 06-29-2023 KIERA RN educated pt on d/ c instructions. RN encouraged pt to voice any questions or concerns. Pt verbalizes no questions or concerns at this time. [facility] Orders Onlyon 06-17-2023 Orders Only [id number] Chung Denton 1955 Date Provider Department Center 06/17/2023 Avi-DEIRDRE RIDLEY CARD [facility] Family History Problem Relation Age of Onset Heart attack Paternal Grandfather Family Status - Relation Status Age at Paternal Grandfather Normal [facility] Letter (Out)on 05-26-2023 Letter (Out) [id number] Chung Denton R 1955 Provider Department Center 05/26/2023 None-None [facility] AUTH OR Medical C Family History Problem Relation Age of Onset Heart attack Paternal Grandfather Family Status - Relation Status Age at Paternal Grandfather Normal [facility] Office Visiton 05-20-2023 Follow-up visit [id number] Chung Denton R 1955 Counts Include 234 Beds At [facility] Provider Department Center 05/20/2023 271-ELIANE MURILLO [facility] Family History Problem Relation Age of Onset Heart attack Paternal Grandfather Family Status - Relation Status Age at Paternal Grandfather Level of Service:75429 [place] OFFICE/OUTPATIENT [facility] 60-74 MINUTES Normal [facility] Orders Onlyon 05-20-2023 Orders Only [id number] Chung Denton R 1955 Counts Include 234 Beds At [facility] Provider Department Center 05/20/2023 Walker-HIMANSHU MCMILLAN VALERIANO [facility] Family History Problem Relation Age of Onset Heart attack Paternal Grandfather Family Status - Relation Status Age at Paternal Grandfather Normal [facility] Facesheeton 05-14-2023 Facesheet [id number] D:127 Normal [facility] Ambulatory Visit Summaryon 0 05-13-2023 Ambulatory [...] Spondylosis of cervical spine Ureteral calculus Normal [facility] Physician Referralon 023 Physician Referral [id number] CD:127 Normal [facility] XR HIP RT 2 3V W [...] ANTONI PENALOZA Date: 2022-11-13 22:38 Normal [facility] XR LSPINE MIN 4 VIEWSon 10-17 XR [...] paraspinous abnormality is seen. OTHER: Negative. IMPRESSION: Dapm-cv-elbhrxxq degenerative changes Electronically authenticated by: ANTONI TRACEY Date: 2022-11-14 07:58 Normal [facility] CREATININEon 11-11-2022 Creatinine [Mass/Vol] 1.04 mg/dL Normal 0.70-1.30 [facility] Comment on above: Performed By: #### C ASIF #### [facility] [address] [address] [address] Gianni Deluna EGFR-AF GEORGIAN >60 Normal >=60 [facility] Comment on above: Performed By: #### C ASIF #### [facility] [address] [address] [address] Gianni Deluna EGFR-NON AF GEORGIAN >60 Normal >=60 [facility] Comment on above: Performed By: #### C ASIF #### [facility] [address] [place] [address] CHEST W CONon [...] by: PA CROW Date: 2022-11-11 11:29 Normal [facility] MRI [facility] WO CONon 08-14-20 22 MRI [facility] CON EXAMINATION: MRI [facility] WO CON HISTORY: Cervical radiculopathy COMPARISON: No [...] ANTONI TRACEY Date: 2022-08-14 09:19 Normal [facility] INSULINon 06-04-2022 Insulin 13.5 uIU/mL Normal 2.6-24.9 [facility] Comment on above: Performed By: #### L ACT #### [facility] [address] [place] [address] Dr. Gianni Deluna CBC AUTO DIFFon 06-03-2022 BASO # 0.1 103/ul Normal 0.0-0.1 [facility] Comment on above: Performed By: #### L ACT #### [facility] [address] [place] [address] Dr. Gianni Deluna Basophils/100 WBC (Bld) 1.2 % Normal 0.2-2.0 [facility] Comment on above: Performed By: #### L ACT #### [facility] [address] [place] [address] Dr. Gianni Deluna EO # 0.4 103/ul Normal 0.0-0.7 [facility] Comment on above: Performed By: #### L ACT #### [facility] [address] [place] [address] Dr. Gianni Deluna Eosinophils/100 WBC (Bld) 5.9 % Normal 0.9-7.0 [facility] Comment on above: Performed By: #### L ACT #### [facility] [address] [place] [address] Dr. Gianni Deluna Erythrocyte distribution width (RBC) [Ratio] 13.4 % Normal 11.0-15.0 [facility] Comment on above: Performed By: #### L ACT #### [facility] [address] [place] [address] Dr. Gianni Deluna Hematocrit (Bld) [Volume fraction] 39.6 % Critically low 42.0-54.0 [facility] Comment on above: Performed By: #### L ACT #### [facility] [address] [place] [address] Dr. Gianni Deluna Hemoglobin (Bld) [Mass/Vol] 12.8 g/dL Critically low 14.0-18.0 [facility] Comment on above: Performed By: #### L ACT #### [facility] [address] [place] [address] Dr. Gianni Deluna IG # 0.04 10e3/ul Critically high 0.00-0.03 [facility] Comment on above: Performed By: #### L ACT #### [facility] [address] [place] [address] Dr. Gianni Deluna IG % 0.7 % Critically high 0.0-0.5 [facility] Comment on above: Performed By: #### L ACT #### [facility] [address] [place] [address] Dr. Gianni Deluna LYMPH # 1.9 103/ul Normal 1.2-3.8 [facility] Comment on above: Performed By: #### L ACT #### [facility] [address] [place] [address] Dr. Gianni Deluna Lymphocytes/100 WBC (Bld) 31.7 % Normal 20.5-60.0 [facility] Comment on above: Performed By: #### L ACT #### [facility] [address] [place] [address] Dr. Gianni Deluna MANUAL DIFF REQ NO Normal [facility] Comment on above: Performed By: #### L ACT #### [facility] [address] [place] [address] Dr. Gianni Deluna MCH (RBC) [Entitic mass] 30.2 pg Normal 25.9-34.0 [facility] Comment on above: Performed By: #### L ACT #### [facility] [address] [place] [address] Dr. Gianni Deluna MCHC (RBC) [Mass/Vol] 32.3 g/dL Normal 29.9-35.2 [facility] Comment on above: Performed By: #### L ACT #### [facility] [address] [address] [address] Gianni Deluna MCV (RBC) [Entitic vol] 93.4 fL Normal 80.0-94.0 [facility] Comment on above: Performed By: #### L ACT #### [facility] [address] [address] [address] Gianni Deluna MONO # 0.7 103/ul Normal 0.3-0.8 [facility] Comment on above: Performed By: #### L ACT #### [facility] [address] [address] [address] Gianni Deluna Monocytes/100 WBC (Bld) 11.9 % Normal 1.7-12.0 [facility] Comment on above: Performed By: #### L ACT #### [facility] [address] [address] [address] Gianni Deluna NEUT # 2.9 103/ul Normal 1.4-6.5 [facility] Comment on above: Performed By: #### L ACT #### [facility] [address] [address] [address] Gianni Deluna Neutrophils/100 WBC (Bld) 48.6 % Normal 43.0-75.0 [facility] Comment on above: Performed By: #### L ACT #### [facility] [address] [address] [address] Gianni Deluna Platelet mean volume (Bld) [Entitic vol] 9.1 fL Critically low 9.5-13.5 [facility] Comment on above: Performed By: #### L ACT #### [facility] [address] [place] [address] Dr. Gianni Deluna PLT 168 103/ul Normal 150-450 [facility] Comment on above: Performed By: #### L ACT #### [facility] [address] [address] [address] Gianni Deluna RBC 4.24 106/ul Critically low 4.70-6.10 [facility] Comment on above: Performed By: #### L ACT #### [facility] [address] [place] [address] Dr. Gianni Deluna WBC 6.0 103/ul Normal 4.0-11.0 [facility] Comment on above: Performed By: #### L ACT #### [facility] [address] [address] [address] Gianni Deluna FREE THYROXINE INDEX T7on FTI 1.91 Normal 1.30-4.50 [facility] Comment on above: Performed By: #### L ACT #### [facility] [address] [place] [address] Dr. Gianni Deluna T3U 36.0 % Normal 33.0-40.0 [facility] Comment on above: Performed By: #### L ACT #### [facility] [address] [place] [address] Dr. Gianni Deluna T4 [Mass/Vol] 5.30 ug/dL Normal 4.50-12.10 [facility] Comment on above: Performed By: #### L ACT #### [facility] [address] [place] [address] Dr. Gianni Deluna GLYCOHEMOGLOBIN A1Con 2021 ADA RECOMMENDATION SEE BELOW Normal [facility] Comment on above: Result Comment: ADA RECOMMENDED LIMIT 4.0 - 6.0 ADA THERAPEUTIC TARGET < 7.0 ACTION SUGGESTED > 7.0 Performed By: #### D DIM #### [facility] [address] [place] [address] Dr. Gianni Deluna Glucose [Mass/Vol] 140 mg/dL Normal [facility] Comment on above: Performed By: #### D DIM #### [facility] [address] [place] [address] Dr. Gianni Deluna HbA1c (Bld) [Mass fraction] 6.5 % Critically high 4.5-6.2 [facility] Comment on above: Performed By: #### D DIM #### [facility] [address] [place] [address] Dr. Gianni Deluna LIPID PROFILEon 06-03-2022 CHOL-HDL RATIO NORM SEE BELOW Normal [facility] Comment on above: Result Comment: 3.3 - 4.4 LOW RISK 4.4 - 7.1 AVERAGE RISK 7.1 - 11.0 MODERATE RISK >11.0 HIGH RISK Performed By: #### T SH, T7, URIC, CMP, LIPID #### [facility] [address] [address] [address] Gianni Deluna Cholesterol [Mass/Vol] 104 mg/dL Normal <=200 [facility] Comment on above: Performed By: #### T SH, T7, URIC, CMP, LIPID #### [facility] [address] [address] [address] Gianni Deluna Cholesterol in HDL [Mass/Vol] 49 mg/dL Normal 40-60 [facility] Comment on above: Performed By: #### T SH, T7, URIC, CMP, LIPID #### [facility] [address] [address] [address] Gianni Deluna Cholesterol in LDL [Mass/Vol] 46.6 mg/dL Normal [facility] Comment on above: Performed By: #### T SH, T7, URIC, CMP, LIPID #### [facility] [address] [address] [address] Gianni Deluna Cholesterol.total/Ch olesterol in HDL [Mass ratio] 2.1 {ratio} Normal [facility] Comment on above: Performed By: #### T SH, T7, URIC, CMP, LIPID #### [facility] [address] [address] [address] Gianni Deluna HDL NORMAL > or = 60 mg/dl - LO W CARDIOVASCULAR RISK <40 mg/dl - HIGH CARDIOVASCULAR RISK Normal [facility] Comment on above: Performed By: #### T SH, T7, URIC, CMP, LIPID #### [facility] [address] [place] [address] Dr. Gianni Deluna LDL CALC NORMAL SEE BELOW Normal [facility] Comment on above: Result Comment: <100 mg/dl OPTIMAL 100 - 129 mg/dl NEAR OR ABOVE OPTIMAL 130 - 159 mg/dl BORDERLINE HIGH 160 - 189 mg/dl HIGH >190 mg/dl VERY HIGH Performed By: #### T SH, T7, URIC, CMP, LIPID #### [facility] [address] [address] [address] Gianni Deluna Triglyceride [Mass/Vol] 42 mg/dL Normal <=150 [facility] Comment on above: Performed By: #### T SH, T7, URIC, CMP, LIPID #### [facility] [address] [address] [address] Gianni Deluna VLDL CALC 8.4 mg/dL Normal [facility] Comment on above: Performed By: #### T SH, T7, URIC, CMP, LIPID #### [facility] [address] [place] [address] Dr. Gianni Deluna PROF 14(COMP METB)on 022 Albumin [Mass/Vol] 2.9 g/dL Critically low 3.4-5.0 [facility] Comment on above: Performed By: #### T SH, T7, URIC, CMP, LIPID #### [facility] [address] [place] [address] Dr. Gianni Deluna Albumin/Globulin [Mass ratio] 0.8 {ratio} Normal [facility] Comment on above: Performed By: #### T SH, T7, URIC, CMP, LIPID #### [facility] [address] [place] [address] Dr. Gianni Deluna ALP [Catalytic activity/Vol] 127 U/L Critically high 46-116 [facility] Comment on above: Performed By: #### T SH, T7, URIC, CMP, LIPID #### [facility] [address] [place] [address] Dr. Gianni Deluna ALT [Catalytic activity/Vol] 23 U/L Normal 16-63 [facility] Comment on above: Performed By: #### T SH, T7, URIC, CMP, LIPID #### [facility] [address] [place] [address] Dr. Gianni Deluna Anion gap [Moles/Vol] 8.4 mmol/L Normal [facility] Comment on above: Performed By: #### T SH, T7, URIC, CMP, LIPID #### [facility] [address] [place] [address] Dr. Gianni Deluna AST [Catalytic activity/Vol] 21 U/L Normal 15-37 [facility] Comment on above: Performed By: #### T SH, T7, URIC, CMP, LIPID #### [facility] [address] [place] [address] Dr. Gianni Deluna Bilirubin [Mass/Vol] 0.5 mg/dL Normal 0.2-1.0 [facility] Comment on above: Performed By: #### T SH, T7, URIC, CMP, LIPID #### [facility] [address] [place] [address] Dr. Gianni Deluna Calcium [Mass/Vol] 8.3 mg/dL Critically low 8.5-10.1 Th e [facility] Comment on above: Performed By: #### T SH, T7, URIC, CMP, LIPID #### [facility] [address] [place] [address] Dr. Gianni Deluna Chloride [Moles/Vol] 107 mmol/L Normal 98-107 [facility] Comment on above: Performed By: #### T SH, T7, URIC, CMP, LIPID #### [facility] [address] [place] [address] Dr. Gianni Deluna CO2 [Moles/Vol] 30.6 mmol/L Normal 21.0-32.0 [facility] Comment on above: Performed By: #### T SH, T7, URIC, CMP, LIPID #### [facility] [address] [place] [address] Dr. Gianni Deluna Creatinine [Mass/Vol] 0.93 mg/dL Normal 0.70-1.30 [facility] Comment on above: Performed By: #### T SH, T7, URIC, CMP, LIPID #### [facility] [address] [place] [address] Dr. Gianni Deluna EGFR-AF GEORGIAN >60 Normal >=60 [facility] Comment on above: Performed By: #### T SH, T7, URIC, CMP, LIPID #### [facility] [address] [address] [address] Gianni Deluna EGFR-NON AF GEORGIAN >60 Normal >=60 [facility] Comment on above: Performed By: #### T SH, T7, URIC, CMP, LIPID #### [facility] [address] [address] [address] Gianni Deluna Globulin (S) [Mass/Vol] 3.5 g/dL Normal [facility] Comment on above: Performed By: #### T SH, T7, URIC, CMP, LIPID #### [facility] [address] [place] [address] Dr. Gianni Deluna Glucose [Mass/Vol] 114 mg/dL Critically high 74-106 [facility] Comment on above: Performed By: #### T SH, T7, URIC, CMP, LIPID #### [facility] [address] [place] [address] Dr. Gianni Deluna Potassium [Moles/Vol] 4.0 mmol/L Normal 3.5-5.1 [facility] Comment on above: Performed By: #### T SH, T7, URIC, CMP, LIPID #### [facility] [address] [place] [address] Dr. Gianni Deluna Protein [Mass/Vol] 6.4 g/dL Normal 6.4-8.2 [facility] Comment on above: Performed By: #### T SH, T7, URIC, CMP, LIPID #### [facility] [address] [address] [address] Gianni Deluna Sodium [Moles/Vol] 142 mmol/L Normal 136-145 [facility] Comment on above: Performed By: #### T SH, T7, URIC, CMP, LIPID #### [facility] [address] [address] [address] Gianni Deluna Urea nitrogen [Mass/Vol] 11.0 mg/dL Normal 7.0-18.0 [facility] Comment on above: Performed By: #### T SH, T7, URIC, CMP, LIPID #### [facility] [address] [place] [address] Dr. Gianni Deluna Urea nitrogen/Creatinine [Mass ratio] 11.8 mg/mg Normal [facility] Comment on above: Performed By: #### T SH, T7, URIC, CMP, LIPID #### [facility] [address] [place] [address] Dr. Gianni Deluna TSHon 06-03-2022 TSH 0.814 uIU/mL Normal 0.358-3.740 [facility] Comment on above: Performed By: #### L ACT #### [facility] [address] [place] [address] Dr. Gianni Deluna URIC ACID SERUMon 06-03-2022 Urate [Mass/Vol] 5.2 mg/dL Normal 3.5-7.2 [facility] Comment on above: Performed By: #### T SH, T7, URIC, CMP, LIPID #### [facility] [address] [place] [address] Dr. Gianni Deluna CARDIAC ALEX 3-6on 2 CK [Catalytic activity/Vol] 82 U/L Normal 39-308 [facility] Comment on above: Performed By: #### L ACT #### [facility] [address] [place] [address] Dr. Gianni Deluna CK.MB [Mass/Vol] 2.40 ng/mL Normal <=3.60 [facility] Comment on above: Performed By: #### L ACT #### [facility] [address] [place] [address] Dr. Gianni Deluna HSTROP 8.6 pg/mL Normal 4.0-76.1 [facility] Comment on above: Result Comment: CUT- OFF POINTS HAVE BEEN ESTABLISHED BASED ON THE FOURTH UNIVERSAL DEFINITIONS OF MYOCARDIAL INFARCTION. THE UPPER REFERENCE LIMIT (URL) OF TROPONIN, DEFINED THE 99TH PERCENTILE OF cTnI DISTRIBUTION IN A REFERENCE POPULATION, HAS BEEN CONFIRMED THE DECISION THRESHOLD FOR MD DIAGNOSIS. Performed By: #### L ACT #### [facility] [address] [place] [address] ABD/PELV W CONon [...] by: JAIMIE COOPER Date: 2022-04-21 00:38 Normal [facility] LACTATE/LACTIC ACIDon 2021 Lactate [Moles/Vol] 2.2 mmol/L Critically high 0.4-1.9 [facility] Comment on above: Performed By: #### L ACT #### [facility] [address] [address] [address] Gianni Deluna AMYLASEon 04-20-2022 Amylase [Catalytic activity/Vol] 139 U/L Critically high 25-115 [facility] Comment on above: Performed By: #### L ACT #### [facility] [address] [address] [address] Gianni Deluna CARDIAC ALEX ADMITon 022 CK [Catalytic activity/Vol] 88 U/L Normal 39-308 [facility] Comment on above: Performed By: #### C MADM #### [facility] [address] [address] [address] Gianni Deluna CK.MB [Mass/Vol] 1.82 ng/mL Normal <=3.60 [facility] Comment on above: Performed By: #### C MADM #### [facility] [address] [place] [address] Dr. Gianni Deluna HSTROP 7.2 pg/mL Normal 4.0-76.1 [facility] Comment on above: Result Comment: CUT- OFF POINTS HAVE BEEN ESTABLISHED BASED ON THE FOURTH UNIVERSAL DEFINITIONS OF MYOCARDIAL INFARCTION. THE UPPER REFERENCE LIMIT (URL) OF TROPONIN, DEFINED THE 99TH PERCENTILE OF cTnI DISTRIBUTION IN A REFERENCE POPULATION, HAS BEEN CONFIRMED THE DECISION THRESHOLD FOR MD DIAGNOSIS. Performed By: #### C MADM #### [facility] [address] [place] [address] Dr. Gianni Deluna FILIBERTO 93 ng/mL Normal 16-96 [facility] Comment on above: Performed By: #### C MADM #### [facility] [address] [place] [address] Dr. Gianni Deluna CBC AUTO DIFFon 04-20-2022 BASO # 0.0 103/ul Normal 0.0-0.1 [facility] Comment on above: Performed By: #### C BC #### [facility] [address] [place] [address] Dr. Gianni Deluna Basophils/100 WBC (Bld) 0.3 % Normal 0.2-2.0 [facility] Comment on above: Performed By: #### C BC #### [facility] [address] [place] [address] Dr. Gianni Deluna EO # 0.0 103/ul Normal 0.0-0.7 [facility] Comment on above: Performed By: #### C BC #### [facility] [address] [place] [address] Dr. Gianni Deluna Eosinophils/100 WBC (Bld) 0.1 % Critically low 0.9-7.0 [facility] Comment on above: Performed By: #### C BC #### [facility] [address] [place] [address] Dr. Gianni Deluna Erythrocyte distribution width (RBC) [Ratio] 13.5 % Normal 11.0-15.0 [facility] Comment on above: Performed By: #### C BC #### [facility] [address] [address] [address] Gianni Deluna Hematocrit (Bld) [Volume fraction] 45.8 % Normal 42.0-54.0 [facility] Comment on above: Performed By: #### C BC #### [facility] [address] [address] [address] Gianni Deluna Hemoglobin (Bld) [Mass/Vol] 15.3 g/dL Normal 14.0-18.0 [facility] Comment on above: Performed By: #### C BC #### [facility] [address] [address] [address] Gianni Deluna IG # 0.05 10e3/ul Critically high 0.00-0.03 [facility] Comment on above: Performed By: #### C BC #### [facility] [address] [place] [address] Dr. Gianni Deluna IG % 0.5 % Normal 0.0-0.5 [facility] Comment on above: Performed By: #### C BC #### [facility] [address] [address] [address] Gianni Deluna LYMPH # 0.8 103/ul Critically low 1.2-3.8 [facility] Comment on above: Performed By: #### C BC #### [facility] [address] [place] [address] Dr. Gianni Deluna Lymphocytes/100 WBC (Bld) 7.7 % Critically low 20.5-60.0 [facility] Comment on above: Performed By: #### C BC #### [facility] [address] [place] [address] Dr. Gianni Deluna MANUAL DIFF REQ NO Normal [facility] Comment on above: Performed By: #### C BC #### [facility] [address] [place] [address] Dr. Gianni Deluna MCH (RBC) [Entitic mass] 30.4 pg Normal 25.9-34.0 [facility] Comment on above: Performed By: #### C BC #### [facility] [address] [place] [address] Dr. Gianni Deluna MCHC (RBC) [Mass/Vol] 33.4 g/dL Normal 29.9-35.2 [facility] Comment on above: Performed By: #### C BC #### [facility] [address] [address] [address] Gianni Deluna MCV (RBC) [Entitic vol] 90.9 fL Normal 80.0-94.0 [facility] Comment on above: Performed By: #### C BC #### [facility] [address] [address] [address] Gianni Deluna MONO # 0.4 103/ul Normal 0.3-0.8 [facility] Comment on above: Performed By: #### C BC #### [facility] [address] [address] [address] Gianni Deluna Monocytes/100 WBC (Bld) 3.3 % Normal 1.7-12.0 [facility] Comment on above: Performed By: #### C BC #### [facility] [address] [address] [address] Gianni Deluna NEUT # 9.7 103/ul Critically high 1.4-6.5 [facility] Comment on above: Performed By: #### C BC #### [facility] [address] [address] [address] Gianni Deluna Neutrophils/100 WBC (Bld) 88.1 % Critically high 43.0-75.0 [facility] Comment on above: Performed By: #### C BC #### [facility] [address] [address] [address] Gianni Deluna Platelet mean volume (Bld) [Entitic vol] 8.9 fL Critically low 9.5-13.5 [facility] Comment on above: Performed By: #### C BC #### [facility] [address] [address] [address] Gianni Deluna PLT 198 103/ul Normal 150-450 [facility] Comment on above: Performed By: #### C BC #### [facility] [address] [address] [address] Gianni Deluna RBC 5.04 106/ul Normal 4.70-6.10 [facility] Comment on above: Performed By: #### C BC #### [facility] [address] [place] [address] Dr. Gianni Deluna WBC 11.0 103/ul Normal 4.0-11.0 [facility] Comment on above: Performed By: #### C BC #### [facility] [address] [place] [address] Dr. Gianni Deluna Covid-19 PCR (CVDTB)on SARS-CoV-2 (COVID-19) RNA NICHOLE+probe Ql (Unsp spec) Not detected Normal NOT DETECTED [facility] Comment on above: Result Comment: When diagnostic [...] for this test is supported by the [place] of [employer] and Human Service's declaration that [...] used). Performed By: #### C VDTBH #### [facility] [address] [place] [address] Dr. Gianni Deluna D-DIMERon 04-20-2022 D-DIMER 0.37 mg/L FEU Normal <=0.59 [facility] Comment on above: Performed By: #### D DIM #### [facility] [address] [place] [address] Dr. Gianni Deluna D-DIMER COMMENTS SEE BELOW [...] hospitalization. Performed By: #### D DIM #### [facility] [address] [place] [address] Dr. Gianni Deluna LACTATE/LACTIC ACIDon 2021 Lactate [Moles/Vol] 2.3 mmol/L Critically high 0.4-1.9 [facility] Comment on above: Performed By: #### L ACT #### [facility] [address] [place] [address] Dr. Gianni Deluna LIPASEon 04-20-2022 Lipase [Catalytic activity/Vol] 48.0 U/L Critically low 73.0-393.0 [facility] Comment on above: Performed By: #### L ACT #### [facility] [address] [place] [address] Dr. Gianni Deluna PROF 14(COMP METB)on 022 Albumin [Mass/Vol] 3.9 g/dL Normal 3.4-5.0 [facility] Comment on above: Performed By: #### L ACT #### [facility] [address] [place] [address] Dr. Gianni Deluna Albumin/Globulin [Mass ratio] 1.0 {ratio} Normal [facility] Comment on above: Performed By: #### L ACT #### [facility] [address] [place] [address] Dr. Gianni Deluna ALP [Catalytic activity/Vol] 127 U/L Critically high 46-116 [facility] Comment on above: Performed By: #### L ACT #### [facility] [address] [place] [address] Dr. Gianni Deluna ALT [Catalytic activity/Vol] 27 U/L Normal 16-63 [facility] Comment on above: Performed By: #### L ACT #### [facility] [address] [address] [address] Gianni Deluna Anion gap [Moles/Vol] 15.9 mmol/L Normal [facility] Comment on above: Performed By: #### L ACT #### [facility] [address] [address] [address] Gianni Deluna AST [Catalytic activity/Vol] 27 U/L Normal 15-37 [facility] Comment on above: Performed By: #### L ACT #### [facility] [address] [address] [address] Gianni Deluna Bilirubin [Mass/Vol] 0.9 mg/dL Normal 0.2-1.0 [facility] Comment on above: Performed By: #### L ACT #### [facility] [address] [address] [address] Gianni Deluna Calcium [Mass/Vol] 8.9 mg/dL Normal 8.5-10.1 [facility] Comment on above: Performed By: #### L ACT #### [facility] [address] [address] [address] Gianni Deluna Chloride [Moles/Vol] 103 mmol/L Normal 98-107 [facility] Comment on above: Performed By: #### L ACT #### [facility] [address] [address] [address] Gianni Deluna CO2 [Moles/Vol] 24.2 mmol/L Normal 21.0-32.0 [facility] Comment on above: Performed By: #### L ACT #### [facility] [address] [address] [address] Gianni Deluna Creatinine [Mass/Vol] 1.27 mg/dL Normal 0.70-1.30 [facility] Comment on above: Performed By: #### L ACT #### [facility] [address] [address] [address] Gianni Deluna EGFR-AF GEORGIAN >60 Normal >=60 [facility] Comment on above: Performed By: #### L ACT #### [facility] [address] [address] [address] Gianni Deluna EGFR-NON AF GEORGIAN 56 mL/min/1.73m2 Critically low >=60 [facility] Comment on above: Performed By: #### L ACT #### [facility] [address] [place] [address] Dr. Gianni Deluna Globulin (S) [Mass/Vol] 3.9 g/dL Normal [facility] Comment on above: Performed By: #### L ACT #### [facility] [address] [address] [address] Gianni Deluna Glucose [Mass/Vol] 145 mg/dL Critically high 74-106 [facility] Comment on above: Performed By: #### L ACT #### [facility] [address] [place] [address] Dr. Gianni Deluna Potassium [Moles/Vol] 4.1 mmol/L Normal 3.5-5.1 [facility] Comment on above: Performed By: #### L ACT #### [facility] [address] [place] [address] Dr. Gianni Deluna Protein [Mass/Vol] 7.8 g/dL Normal 6.4-8.2 [facility] Comment on above: Performed By: #### L ACT #### [facility] [address] [place] [address] Dr. Gianni Deluna Sodium [Moles/Vol] 139 mmol/L Normal 136-145 [facility] Comment on above: Performed By: #### L ACT #### [facility] [address] [place] [address] Dr. Gianni Deluna Urea nitrogen [Mass/Vol] 22.0 mg/dL Critically high 7.0-18.0 [facility] Comment on above: Performed By: #### L ACT #### [facility] [address] [place] [address] Dr. Gianni Deluna Urea nitrogen/Creatinine [Mass ratio] 17.3 mg/mg Normal [facility] Comment on above: Performed By: #### L ACT #### [facility] [address] [place] [address] Dr. Gianni Deluna XR ABD FLAT UP_PA [...] by: JAIMIE COOPER Date: 2022-04-20 21:58 Normal [facility] US RICHELLE DOP LEG LTon 03-18-20 [...] by: LAWANDA VEE Date: 2022-03-18 13:25 Normal [facility] US RICEHLLE DOP LEG LTon 12-08-19 US RICHELLE DOP [...] by: ANTONI JOLLEY Date: 2021-12-06 22:57 Normal [facility] Encounters Encounter Date Encounter Type Care Provider Facility Start: 10-26-2023 End: 10-27-2023 ambulatory Stefany Ballard MD Facility:[facility] Start: 09-21-2023 End: 09-22-2023 ambulatory Stefany Ballard MD Facility:[facility] Start: 08-31-2023 End: 09-01-2023 ambulatory Stefany Ballard MD Facility:[facility] Start: 07-17-2023 ambulatory Evens Archer MD Facility:[facility] Start: 07-08-2023 End: 07-08-2023 ambulatory [facility] Start: 06-29-2023 End: 06-29-2023 ambulatory [facility] Start: 06-29-2023 End: 06-29-2023 Encounter for other preprocedural examination [facility] Start: 06-17-2023 Encounter for other preprocedural examination [facility] Start: 05-20-2023 End: 05-20-2023 ambulatory [facility] Start: 05-13-2023 End: 05-14-2023 ambulatory Pramod [...] Comment on above: Performed By: #### P [facility] #### [facility] [address] [place] [address] Dr. Gianni Deluna Payers Date Payer Category Payer Unknown 2014 Unknown [id number] 1959 Self-pay [id number] 1959 Unknown [id number] 1954 Unknown [id number] 2.16.84 [id number] 1954 Unknown [id number] 2.16.84 [id number] 1954 Unknown [id number] 2.16.84 [id number] 1954 Unknown [id number] 2.16.84 0.1.343180.3.579.259 1954 Unknown [id number] 2.16.84 0.1.798014.3.579.2.593 1954 Unknown [id number] 2.16.84 0.1.298421.3.579.2.593 1954 Unknown [id number] 2.16.84 0.1.225691.3.579.2.593 1954 Unknown [id number] 2.16.84 0.1.205522.3.579.2.593 1954 Unknown [id number] 2.16.8 40.1.916456.3.579.2.727 1954 Unknown [id number] 2.16.8 40.1.616478.3.579.2.727 1954 Unknown [id number] 2.16.8 40.1.214634.3.579.2.727 1954 Unknown [id number] 2.16. 840.1.528711.3.579.2.196 1954 Unknown [id number] 2.16. 840.1.417324.3.579.2.196 1954 Unknown [id number] 2.16. [id number] Progress note 07-08-2023 Note Date & Type Note Facility 07-08-2023 Note [facility] SUBJECTIVE Chief Complaint Patient presents with Edema [...] Final Atrial Rate 06/29/2023 47 BPM Final GA Interval 06/29/2023 154 ms Final QRS DURATION 06/29/2023 82 ms Final QT Interval 06/29/2023 482 ms Final QTC CALCULATION(BAZETT) 06/29/2023 426 ms Final P [place] 06/29/2023 16 degrees Final R-[place] 06/29/2023 55 degrees Final T Wave [place] 06/29/2023 41 degrees Final No results found for: EXTCMP, BMPR1A, CBCDIF, BNP, BNP, LASAP, RED Testing/Procedures: No echocardiogram results found for the past 14 days No echocardiogram results found for the past 12 months Encounter Date: 06/29/23 ECG 12 lead Result Value Ventricular Rate 47 Atrial Rate 47 GA Interval 154 QR (more content not included)... [facility] Progress note 07-08-2023 Note Date & [...] All other systems reviewed and are negative. [facility] Progress note 06-29-2023 Note Date & [...] minus a RAAS inhibitor Follow-up with Dr. Murillo in the [place] office in the next 2 to 4 weeks PROCEDURES: Ultrasound-guided access to the right common femoral artery, limited femoral angiography, ultrasound-guided access to the right common femoral vein, right heart catheterization, bilateral selective coronary angiography, placement of a 6 [place] Mynx bore mill operator for plastic closure device METHODS: After risks, benefits, and [...] micropuncture kit was upsized to a 6 [place] 11 cm sheath. Angiography via the sheath [...] procedure. All catheters were removed. A 5 [place] Mynx closure device was deployed per protocol [...] device. INDICATIONS: Preoperative evaluation, coronary artery disease. [facility] Progress note 05-20-2023 Note Date & Type Note Facility 05-20-2023 Note [facility] Note Chief Complaint: New patient here to establish care. Ref from Dr. Archer for surgery clearance. He has hx of CAD and previously followed with [facility] back in 2015. He has upcoming hernia surgery with Dr. Hayward, which is not scheduled yet. C/o intermittent chest pain and SOB w/ exertion. HPI: Mr. Detnon is a 68-year-old man with history of [...] percutaneous revascularization. He was evaluated at [facility]. It was elected to continue [...] and a reasonable target. Was seen at [facility]; single-vessel coronary artery disease with a preserved [...] LAD. This wo (more content not included)... [facility] Clinical Note 05-13-2023 Note Date & [...] 10 mg Tab (more content not included)... [facility] Comment on above: Result Comment: Elec [...] and content) DATE CREATED AUTHOR 11/21/2022 [facility] DATE CREATED AUTHOR AUTHOR'S ORGANIZ ATION 05/21/2023 [facility] DATE CREATED AUTHOR AUTHOR'S ORGANIZ ATION 07/10/2023 [facility] DATE CREATED AUTHOR AUTHOR'S ORGANIZ ATION 11/03/2023 [facility] FOR RECORDS PERTAINING TO PATIENTS WHO ARE [...] BE BASED ON THE PRIMARY CLINICAL RECORDS. [employer] [facility]. provides no warranty or guarantee of the accuracy or completeness of information in this document.
== END 2023-11-11 09:06 | disposition home or self-care (01) ==
LOC: PM 09:05
PROVIDERS: PCP Family Medicine; Visit Provider Nurse Practitioner
DX: M47.816 Spondylosis without myelopathy or radiculopathy, lumbar region (principal); M79.18 Myalgia, other site; M48.062 Spinal stenosis, lumbar region with neurogenic claudication; M54.16 Radiculopathy, lumbar region
CPT/HCPCS: G0463

== ENCOUNTER 2023-11-21 16:07 | Emergency (ER) | payer MEDICARE, SELFPAY ==
[2023-11-21 16:12] VITALS: BP 171/119; PULSE 61; TEMP 36.6; O2SAT 99; BMI 21.3
--- OUTSIDE RECORDS SUMMARY | 2023-11-21 16:14 | XMS_ITS | CCD ---
Author Organization [facility] Care Team Providers Care Roller Bearing Inspector Name Role Phone MADAIY ., DR HORNER [...] Penicillins; 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: [penicillins] Drug allergy (disorder) 10-25-2014 [facility] Repository (2 sources) HYDROcodone; 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: [HYDROcodone] Drug Allergy 10-25-2014 [facility] Repository (1 source) nabumetone; 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: [Relafen] Drug Allergy [facility] Repository (1 source) amLODIPine; 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: [AMLODIPINE] Drug Allergy 05-20-2023 [facility] Repository (1 source) nabumetone; 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: [NABUMETONE] Drug Allergy 10-25-2014 [facility] Repository Problems Active Problems Problem Classification Problem Date Documented Date Episodic/Chronic Coronary atherosclerosis and other heart disease (3 sources) Atherosclerotic heart disease of chilkoot coronary artery without angina pectoris; 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: [Unstable [...] Onset: 04-24-2022 Episodic Other aftercare (1 source) residential (current) use of aspirin; 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: [JAIL CURRENT USE OF ASPIRIN] Onset: 04-24-2022 Episodic [...] then as needed *Limit salt/sodium intake Normal [facility] Office Visiton 07-08-2023 Follow-up visit [id number] Chung Denton 1955 M Date Provider Department [place] 07/08/2023 166-BLAYNE DAILY CARD [facility] Family History Problem Relation Age of Onset Heart attack Paternal Grandfather Family Status - Relation Status Age at Paternal Grandfather Level of Service:76269 MA OFFICE/OUTPATIENT ESTABLISHED MOD [place] 30-39 MIN Reason for Visit and Comments: Edema [[id number]] Normal [facility] ANESon 06-29-2023 ANES -- Attestation signed by Eliane Murillo MD at 06/29/2023 9:56 AM Eliane Murillo MD, MPH, [facility], [facility], [facility] Interventional Cardiology Pager Email: [email or web address] Patient: Donnie Denton Procedure Information Date/Time: 06/29/23 1030 Procedures: Coronary angiography (Bilateral) - per Maria G in pre-cert at [facility], this has already been authorized thru Aug 2023 - right femoral approach Right heart cath 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 Additional Equipment Requests Normal [facility] HPon 06-29-2023 HP -- Attestation signed by Eliane Murillo MD at 06/29/2023 9:57 AM Eliane Murillo MD, MPH, [facility], [facility], [facility] Interventional Cardiology Pager Email: [email or web address] History Of Present Illness Donnie [...] He was evaluated by cardiothoracic surgery at [facility] and elected to pursue medical management [...] treated since 2014. Meaghan Mukherjee DO, MPH Calender Wind Up Tender [facility] Nabila 06-29-2023 KIERA RN educated pt on d/ c instructions. RN encouraged pt to voice any questions or concerns. Pt verbalizes no questions or concerns at this time. [facility] Orders Onlyon 06-17-2023 Orders Only [id number] Chung Denton 1955 Date Provider Department Center 06/17/2023 Avi-DEIRDRE RIDLEY CARD [facility] Family History Problem Relation Age of Onset Heart attack Paternal Grandfather Family Status - Relation Status Age at Paternal Grandfather Normal [facility] Letter (Out)on 05-26-2023 Letter (Out) [id number] Chung Denton R 1955 Provider Department Center 05/26/2023 None-None [facility] Family History Problem Relation Age of Onset Heart attack Paternal Grandfather Family Status - Relation Status Age at Paternal Grandfather Normal [facility] Office Visiton 05-20-2023 Follow-up visit [id number] Chung Denton R 1955 [facility] Provider Department Center 05/20/2023 271-ELIANE MURILLO [facility] Family History Problem Relation Age of Onset Heart attack Paternal Grandfather Family Status - Relation Status Age at Paternal Grandfather Level of Service:27213 MA OFFICE/OUTPATIENT [facility] 60-74 MINUTES Normal [facility] Orders Onlyon 05-20-2023 Orders Only [id number] Chung Denton R 1955 [facility] Provider Department Center 05/20/2023 Walker-HIMANSHU MCMILLAN VALERIANO [facility] Family History Problem Relation Age of Onset Heart attack Paternal Grandfather Family Status - Relation Status Age at Paternal Grandfather Normal [facility] Facesheeton 05-14-2023 Facesheet [id number] D:127 Normal [facility] Ambulatory Visit Summaryon 0 05-13-2023 Ambulatory Visit [...] Spondylosis of cervical spine Ureteral calculus Normal [facility] Physician Referralon 023 Physician Referral [id number] CD:127 Normal [facility] XR HIP RT 2 3V W PELVISon [...] ANTONI PENALOZA Date: 2022-11-13 22:38 Normal [facility] [place] XR LSPINE MIN 4 VIEWSon 10-17 XR [...] paraspinous abnormality is seen. OTHER: Negative. IMPRESSION: [id number] degenerative changes Electronically authenticated by: ANTONI TRACEY Date: 2022-11-14 07:58 Normal [facility] [place] CREATININEon 11-11-2022 Creatinine [Mass/Vol] 1.04 mg/dL Normal 0.70-1.30 [facility] [place] Comment on above: Performed By: #### C ASIF #### [facility] [address] [address] [address] Gianni Deluna EGFR-AF RWANDAN >60 Normal >=60 [facility] Comment on above: Performed By: #### C ASIF #### [facility] [address] [address] [address] Gianni Deluna EGFR-NON AF RWANDAN >60 Normal >=60 [facility] Comment on above: Performed By: #### C ASIF #### [facility] [address] [place] [address] CHEST W CONon [...] by: PA CROW Date: 2022-11-11 11:29 Normal [facility] MRI [facility] WO CONon 08-14-20 22 MRI [facility] CON EXAMINATION: MRI [facility] WO CON HISTORY: Cervical radiculopathy COMPARISON: No [...] ANTONI TRACEY Date: 2022-08-14 09:19 Normal [facility] [place] INSULINon 06-04-2022 Insulin 13.5 uIU/mL Normal 2.6-24.9 [facility] [place] Comment on above: Performed By: #### L ACT #### [facility] [address] [place] [address] Dr. Gianni Deluna CBC AUTO DIFFon 06-03-2022 BASO # 0.1 103/ul Normal 0.0-0.1 [facility] Comment on above: Performed By: #### L ACT #### [facility] [address] [place] [address] Dr. Gianni Deluna Basophils/100 WBC (Bld) 1.2 % Normal 0.2-2.0 [facility] Comment on above: Performed By: #### L ACT #### [facility] [address] [place] [address] Dr. Gianni Deluna EO # 0.4 103/ul Normal 0.0-0.7 [facility] Comment on above: Performed By: #### L ACT #### [facility] [address] [place] [address] Dr. Gianni Deluna Eosinophils/100 WBC (Bld) 5.9 % Normal 0.9-7.0 [facility] [place] Comment on above: Performed By: #### L ACT #### [facility] [address] [place] [address] Dr. Gianni Deluna Erythrocyte distribution width (RBC) [Ratio] 13.4 % Normal 11.0-15.0 [facility] Comment on above: Performed By: #### L ACT #### [facility] [address] [place] [address] Dr. Gianni Deluna Hematocrit (Bld) [Volume fraction] 39.6 % Critically low 42.0-54.0 [facility] Comment on above: Performed By: #### L ACT #### [facility] [address] [place] [address] Dr. Gianni Deluna Hemoglobin (Bld) [Mass/Vol] 12.8 g/dL Critically low 14.0-18.0 [facility] [place] Comment on above: Performed By: #### L ACT #### [facility] [facility] [address] [place] [address] Dr. Gianni Deluna IG # 0.04 10e3/ul Critically high 0.00-0.03 [facility] Comment on above: Performed By: #### L ACT #### [place] [facility] [address] [place] [address] Dr. Gianni Deluna IG % 0.7 % Critically high 0.0-0.5 [facility] Comment on above: Performed By: #### L ACT #### [place] [facility] [address] [place] [address] Dr. Gianni Deluna LYMPH # 1.9 103/ul Normal 1.2-3.8 [facility] [place] Comment on above: Performed By: #### L ACT #### [facility] [address] [place] [address] Dr. Gianni Deluna Lymphocytes/100 WBC (Bld) 31.7 % Normal 20.5-60.0 [facility] [place] Comment on above: Performed By: #### L ACT #### [facility] [facility] [address] [place] [address] Dr. Gianni Deluna MANUAL DIFF REQ NO Normal [facility] Comment on above: Performed By: #### L ACT #### [facility] [address] [place] [address] Dr. Gianin Deluna MCH (RBC) [Entitic mass] 30.2 pg Normal 25.9-34.0 [facility] Comment on above: Performed By: #### L ACT #### [facility] [address] [place] [address] Dr. Gianni Deluna MCHC (RBC) [Mass/Vol] 32.3 g/dL Normal 29.9-35.2 [facility] Comment on above: Performed By: #### L ACT #### [facility] [address] [address] [address] Gianni Deluna MCV (RBC) [Entitic vol] 93.4 fL Normal 80.0-94.0 [facility] Comment on above: Performed By: #### L ACT #### [facility] [address] [address] [address] Gianni Deluna MONO # 0.7 103/ul Normal 0.3-0.8 [facility] Comment on above: Performed By: #### L ACT #### [facility] [address] [address] [address] Gianni Deluna Monocytes/100 WBC (Bld) 11.9 % Normal 1.7-12.0 [facility] Comment on above: Performed By: #### L ACT #### [facility] [address] [address] [address] Gianni Deluna NEUT # 2.9 103/ul Normal 1.4-6.5 [facility] Comment on above: Performed By: #### L ACT #### [facility] [address] [address] [address] Gianni Deluna Neutrophils/100 WBC (Bld) 48.6 % Normal 43.0-75.0 [facility] Comment on above: Performed By: #### L ACT #### [facility] [address] [address] [address] Gianni Deluna Platelet mean volume (Bld) [Entitic vol] 9.1 fL Critically low 9.5-13.5 [facility] Comment on above: Performed By: #### L ACT #### [facility] [address] [place] [address] Dr. Gianni Deluna PLT 168 103/ul Normal 150-450 [facility] [place] Comment on above: Performed By: #### L ACT #### [facility] [address] [address] [address] Gianni Deluna RBC 4.24 106/ul Critically low 4.70-6.[address] [facility] Comment on above: Performed By: #### L ACT #### [facility] [facility] [address] [place] [address] Dr. Gianni Deluna WBC 6.0 103/ul Normal 4.0-11.0 [facility] Comment on above: Performed By: #### L ACT #### [facility] [address] [address] [address] Gianni Deluna FREE THYROXINE INDEX T7on FTI 1.91 Normal 1.30-4.50 [facility] Comment on above: Performed By: #### L ACT #### [facility] [address] [place] [address] Dr. Gianni Deluna T3U 36.0 % Normal 33.0-40.0 [facility] Comment on above: Performed By: #### L ACT #### [facility] [address] [place] [address] Dr. Gianni Deluna T4 [Mass/Vol] 5.30 ug/dL Normal 4.50-12.10 [facility] Comment on above: Performed By: #### L ACT #### [facility] [facility] [address] [place] [address] Dr. Gianni Deluna GLYCOHEMOGLOBIN A1Con 2021 ADA RECOMMENDATION SEE BELOW Normal [facility] Comment on above: Result Comment: ADA RECOMMENDED LIMIT 4.0 - 6.0 ADA THERAPEUTIC TARGET < 7.0 ACTION SUGGESTED > 7.0 Performed By: #### D DIM #### [facility] [address] [place] [address] Dr. Gianni Deluna Glucose [Mass/Vol] 140 mg/dL Normal [facility] Comment on above: Performed By: #### D DIM #### [facility] [address] [place] [address] Dr. Gianni Deluna HbA1c (Bld) [Mass fraction] 6.5 % Critically high 4.5-6.2 [facility] Comment on above: Performed By: #### D DIM #### [facility] [address] [place] [address] Dr. Gianni Deluna LIPID PROFILEon 06-03-2022 CHOL-HDL RATIO NORM SEE BELOW Normal [facility] Comment on above: Result Comment: 3.3 - 4.4 LOW RISK 4.4 - 7.1 AVERAGE RISK 7.1 - 11.0 MODERATE RISK >11.0 HIGH RISK Performed By: #### T SH, T7, URIC, CMP, LIPID #### [facility] [address] [address] [address] Gianni Deluna Cholesterol [Mass/Vol] 104 mg/dL Normal <=200 [facility] Comment on above: Performed By: #### T SH, T7, URIC, CMP, LIPID #### [facility] [address] [address] [address] Gianni Deluna Cholesterol in HDL [Mass/Vol] 49 mg/dL Normal 40-60 [facility] Comment on above: Performed By: #### T SH, T7, URIC, CMP, LIPID #### [facility] [address] [address] [address] Gianni Deluna Cholesterol in LDL [Mass/Vol] 46.6 mg/dL Normal [facility] Comment on above: Performed By: #### T SH, T7, URIC, CMP, LIPID #### [facility] [address] [address] [address] Gianni Deluna Cholesterol.total/Ch olesterol in HDL [Mass ratio] 2.1 {ratio} Normal [facility] Comment on above: Performed By: #### T SH, T7, URIC, CMP, LIPID #### [facility] [address] [address] [address] Gianni Deluna HDL NORMAL > or = 60 mg/dl - LO W CARDIOVASCULAR RISK <40 mg/dl - HIGH CARDIOVASCULAR RISK Normal [facility] Comment on above: Performed By: #### T SH, T7, URIC, CMP, LIPID #### [facility] [address] [place] [address] Dr. Gianni Deluna LDL CALC NORMAL SEE BELOW Normal [facility] Comment on above: Result Comment: <100 mg/dl OPTIMAL 100 - 129 mg/dl NEAR OR ABOVE OPTIMAL 130 - 159 mg/dl BORDERLINE HIGH 160 - 189 mg/dl HIGH >190 mg/dl VERY HIGH Performed By: #### T SH, T7, URIC, CMP, LIPID #### [facility] [address] [address] [address] Gianni Deluna Triglyceride [Mass/Vol] 42 mg/dL Normal <=150 [facility] Comment on above: Performed By: #### T SH, T7, URIC, CMP, LIPID #### [facility] [address] [address] [address] Gianni Deluna VLDL CALC 8.4 mg/dL Normal [facility] Comment on above: Performed By: #### T SH, T7, URIC, CMP, LIPID #### [facility] [address] [place] [address] Dr. Gianni Deluna PROF 14(COMP METB)on 022 Albumin [Mass/Vol] 2.9 g/dL Critically low 3.4-5.0 [facility] Comment on above: Performed By: #### T SH, T7, URIC, CMP, LIPID #### [facility] [address] [place] [address] Dr. Gianni Deluna Albumin/Globulin [Mass ratio] 0.8 {ratio} Normal [facility] Comment on above: Performed By: #### T SH, T7, URIC, CMP, LIPID #### [facility] [address] [place] [address] Dr. Gianni Deluna ALP [Catalytic activity/Vol] 127 U/L Critically high 46-116 [facility] Comment on above: Performed By: #### T SH, T7, URIC, CMP, LIPID #### [facility] [address] [place] [address] Dr. Gianni Deluna ALT [Catalytic activity/Vol] 23 U/L Normal 16-63 [facility] Comment on above: Performed By: #### T SH, T7, URIC, CMP, LIPID #### [facility] [address] [place] [address] Dr. Gianni Deluna Anion gap [Moles/Vol] 8.4 mmol/L Normal [facility] Comment on above: Performed By: #### T SH, T7, URIC, CMP, LIPID #### [facility] [address] [place] [address] Dr. Gianni Deluna AST [Catalytic activity/Vol] 21 U/L Normal 15-37 [facility] Comment on above: Performed By: #### T SH, T7, URIC, CMP, LIPID #### [facility] [address] [place] [address] Dr. Gianni Deluna Bilirubin [Mass/Vol] 0.5 mg/dL Normal 0.2-1.0 [facility] Comment on above: Performed By: #### T SH, T7, URIC, CMP, LIPID #### [facility] [address] [place] [address] Dr. Gianni Deluna Calcium [Mass/Vol] 8.3 mg/dL Critically low 8.5-10.1 [facility] [place] Comment on above: Performed By: #### T SH, T7, URIC, CMP, LIPID #### [facility] [address] [place] [address] Dr. Gianni Deluna Chloride [Moles/Vol] 107 mmol/L Normal 98-107 [facility] [place] Comment on above: Performed By: #### T SH, T7, URIC, CMP, LIPID #### [facility] [address] [place] [address] Dr. Gianni Deluna CO2 [Moles/Vol] 30.6 mmol/L Normal 21.0-32.0 [facility] Comment on above: Performed By: #### T SH, T7, URIC, CMP, LIPID #### [facility] [address] [place] [address] Dr. Gianni Deluna Creatinine [Mass/Vol] 0.93 mg/dL Normal 0.70-1.30 [facility] Comment on above: Performed By: #### T SH, T7, URIC, CMP, LIPID #### [facility] [address] [place] [address] Dr. Gianni Deluna EGFR-AF RWANDAN >60 Normal >=60 [facility] Comment on above: Performed By: #### T SH, T7, URIC, CMP, LIPID #### [facility] [address] [address] [address] Gianni Deluna EGFR-NON AF RWANDAN >60 Normal >=60 [facility] Comment on above: Performed By: #### T SH, T7, URIC, CMP, LIPID #### [facility] [address] [address] [address] Gianni Deluna Globulin (S) [Mass/Vol] 3.5 g/dL Normal [facility] Comment on above: Performed By: #### T SH, T7, URIC, CMP, LIPID #### [facility] [address] [place] [address] Dr. Gianni Deluna Glucose [Mass/Vol] 114 mg/dL Critically high 74-106 [facility] Comment on above: Performed By: #### T SH, T7, URIC, CMP, LIPID #### [facility] [address] [place] [address] Dr. Gianni Deluna Potassium [Moles/Vol] 4.0 mmol/L Normal 3.5-5.1 [facility] Comment on above: Performed By: #### T SH, T7, URIC, CMP, LIPID #### [facility] [address] [place] [address] Dr. Gianni Deluna Protein [Mass/Vol] 6.4 g/dL Normal 6.4-8.[address] [facility] Comment on above: Performed By: #### T SH, T7, URIC, CMP, LIPID #### [facility] [address] [address] [address] Gianni Deluna Sodium [Moles/Vol] 142 mmol/L Normal 136-[address] [facility] Comment on above: Performed By: #### T SH, T7, URIC, CMP, LIPID #### [facility] [address] [address] [address] Gianni Deluna Urea nitrogen [Mass/Vol] 11.0 mg/dL Normal 7.0-18.0 [facility] Comment on above: Performed By: #### T SH, T7, URIC, CMP, LIPID #### [facility] [address] [place] [address] Dr. Gianni Deluna Urea nitrogen/Creatinine [Mass ratio] 11.8 mg/mg Normal [facility] [place] Comment on above: Performed By: #### T SH, T7, URIC, CMP, LIPID #### [facility] [address] [place] [address] Dr. Gianni Deluna TSHon 06-03-2022 TSH 0.814 uIU/mL Normal 0.358-3.740 [facility] Comment on above: Performed By: #### L ACT #### [facility] [address] [place] [address] Dr. Gianni Deluna URIC ACID SERUMon 06-03-2022 Urate [Mass/Vol] 5.2 mg/dL Normal 3.5-7.2 [facility] Comment on above: Performed By: #### T SH, T7, URIC, CMP, LIPID #### [facility] [address] [place] [address] Dr. Gianni Deluna CARDIAC ALEX 3-6on 2 CK [Catalytic activity/Vol] 82 U/L Normal 39-308 [facility] Comment on above: Performed By: #### L ACT #### [facility] [address] [place] [address] Dr. Gianni Deluna CK.MB [Mass/Vol] 2.40 ng/mL Normal <=3.60 [facility] Comment on above: Performed By: #### L ACT #### [facility] [address] [place] [address] Dr. Gianni Deluna HSTROP 8.6 pg/mL Normal 4.0-76.1 [facility] [place] Comment on above: Result Comment: CUT- OFF POINTS HAVE BEEN ESTABLISHED BASED ON THE FOURTH UNIVERSAL DEFINITIONS OF MYOCARDIAL INFARCTION. THE UPPER REFERENCE LIMIT (URL) OF TROPONIN, DEFINED THE 99TH PERCENTILE OF cTnI DISTRIBUTION IN A REFERENCE POPULATION, HAS BEEN CONFIRMED THE DECISION THRESHOLD FOR UT DIAGNOSIS. Performed By: #### L ACT #### [facility] [address] [place] [address] ABD/PELV W CONon [...] by: JAIMIE COOPER Date: 2022-04-21 00:38 Normal [facility] LACTATE/LACTIC ACIDon 2021 Lactate [Moles/Vol] 2.2 mmol/L Critically high 0.4-1.9 [facility] Comment on above: Performed By: #### L ACT #### [facility] [address] [address] [address] Gianni Deluna AMYLASEon 04-20-2022 Amylase [Catalytic activity/Vol] 139 U/L Critically high 25-115 [facility] Comment on above: Performed By: #### L ACT #### [facility] [address] [address] [address] Gianni Deluna CARDIAC ALEX ADMITon 022 CK [Catalytic activity/Vol] 88 U/L Normal 39-308 [facility] Comment on above: Performed By: #### C MADM #### [facility] [address] [address] [address] Gianni Deluna CK.MB [Mass/Vol] 1.82 ng/mL Normal <=3.60 [facility] Comment on above: Performed By: #### C MADM #### [facility] [address] [place] [address] Dr. Gianni Deluna HSTROP 7.2 pg/mL Normal 4.0-76.1 [facility] [place] Comment on above: Result Comment: CUT- OFF POINTS HAVE BEEN ESTABLISHED BASED ON THE FOURTH UNIVERSAL DEFINITIONS OF MYOCARDIAL INFARCTION. THE UPPER REFERENCE LIMIT (URL) OF TROPONIN, DEFINED THE 99TH PERCENTILE OF cTnI DISTRIBUTION IN A REFERENCE POPULATION, HAS BEEN CONFIRMED THE DECISION THRESHOLD FOR UT DIAGNOSIS. Performed By: #### C MADM #### [facility] [address] [place] [address] Dr. Gianni Deluna FILIBERTO 93 ng/mL Normal 16-96 [facility] [place] Comment on above: Performed By: #### C MADM #### [facility] [address] [place] [address] Dr. Gianni Deluna CBC AUTO DIFFon 04-20-2022 BASO # 0.0 103/ul Normal 0.0-0.1 [facility] Comment on above: Performed By: #### C BC #### [facility] [address] [place] [address] Dr. Gianni Deluna Basophils/100 WBC (Bld) 0.3 % Normal 0.2-2.0 [facility] [place] Comment on above: Performed By: #### C BC #### [facility] [address] [place] [address] Dr. Gianni Deluna EO # 0.0 103/ul Normal 0.0-0.7 [facility] [place] Comment on above: Performed By: #### C BC #### [facility] [address] [place] [address] Dr. Gianni Deluna Eosinophils/100 WBC (Bld) 0.1 % Critically low 0.9-7.0 [facility] [place] Comment on above: Performed By: #### C BC #### [facility] [address] [place] [address] Dr. Gianni Deluna Erythrocyte distribution width (RBC) [Ratio] 13.5 % Normal 11.0-15.0 [facility] [place] Comment on above: Performed By: #### C BC #### [facility] [address] [address] [address] Gianni Deluna Hematocrit (Bld) [Volume fraction] 45.8 % Normal 42.0-54.0 [facility] Comment on above: Performed By: #### C BC #### [facility] [address] [address] [address] Gianni Deluna Hemoglobin (Bld) [Mass/Vol] 15.3 g/dL Normal 14.0-18.0 [facility] Comment on above: Performed By: #### C BC #### [facility] [address] [address] [address] Gianni Deluna IG # 0.05 10e3/ul Critically high 0.00-0.03 [facility] Comment on above: Performed By: #### C BC #### [facility] [address] [place] [address] Dr. Gianni Deluna IG % 0.5 % Normal 0.0-0.5 [facility] Comment on above: Performed By: #### C BC #### [facility] [address] [address] [address] Gianni Deluna LYMPH # 0.8 103/ul Critically low 1.2-3.8 [facility] Comment on above: Performed By: #### C BC #### [facility] [address] [place] [address] Dr. Gianni Deluna Lymphocytes/100 WBC (Bld) 7.7 % Critically low 20.5-60.0 [facility] Comment on above: Performed By: #### C BC #### [facility] [address] [place] [address] Dr. Gianni Deluna MANUAL DIFF REQ NO Normal [facility] Comment on above: Performed By: #### C BC #### [facility] [address] [place] [address] Dr. Gianni Deluna MCH (RBC) [Entitic mass] 30.4 pg Normal 25.9-34.0 [facility] Comment on above: Performed By: #### C BC #### [facility] [address] [place] [address] Dr. Gianni Deluna MCHC (RBC) [Mass/Vol] 33.4 g/dL Normal 29.9-35.2 [facility] Comment on above: Performed By: #### C BC #### [facility] [address] [address] [address] Gianni Deluna MCV (RBC) [Entitic vol] 90.9 fL Normal 80.0-94.0 [facility] Comment on above: Performed By: #### C BC #### [facility] [address] [address] [address] Gianni Deluna MONO # 0.4 103/ul Normal 0.3-0.8 [facility] Comment on above: Performed By: #### C BC #### [facility] [address] [address] [address] Gianni Deluna Monocytes/100 WBC (Bld) 3.3 % Normal 1.7-12.0 [facility] Comment on above: Performed By: #### C BC #### [facility] [address] [address] [address] Gianni Deluna NEUT # 9.7 103/ul Critically high 1.4-6.5 [facility] Comment on above: Performed By: #### C BC #### [facility] [address] [address] [address] Gianni Deluna Neutrophils/100 WBC (Bld) 88.1 % Critically high 43.0-75.0 [facility] Comment on above: Performed By: #### C BC #### [facility] [address] [address] [address] Gianni Deluna Platelet mean volume (Bld) [Entitic vol] 8.9 fL Critically low 9.5-13.5 [facility] Comment on above: Performed By: #### C BC #### [facility] [address] [address] [address] Gianni Deluna PLT 198 103/ul Normal 150-450 [facility] Comment on above: Performed By: #### C BC #### [facility] [address] [address] [address] Gianni Deluna RBC 5.04 106/ul Normal 4.70-6.10 [facility] Comment on above: Performed By: #### C BC #### [facility] [address] [place] [address] Dr. Gianni Deluna WBC 11.0 103/ul Normal 4.0-11.0 [facility] Comment on above: Performed By: #### C BC #### [facility] [address] [place] [address] Dr. Gianni Deluna Covid-19 PCR (CVDTB)on SARS-CoV-2 (COVID-19) RNA NICHOLE+probe Ql (Unsp spec) Not detected Normal NOT DETECTED [facility] Comment on above: Result Comment: When diagnostic [...] for this test is supported by the Royal of Health and Human Service's declaration that [...] used). Performed By: #### C VDTBH #### [facility] [address] [place] [address] Dr. Gianni Deluna D-DIMERon 04-20-2022 D-DIMER 0.37 mg/L FEU Normal <=0.59 [facility] Comment on above: Performed By: #### D DIM #### [facility] [address] [place] [address] Dr. Gianni Deluna D-DIMER COMMENTS SEE BELOW Normal [facility] Comment on above: Result Comment: Incr eases [...] hospitalization. Performed By: #### D DIM #### [facility] [address] [place] [address] Dr. Gianni Deluna LACTATE/LACTIC ACIDon 2021 Lactate [Moles/Vol] 2.3 mmol/L Critically high 0.4-1.9 [facility] Comment on above: Performed By: #### L ACT #### [facility] [address] [place] [address] Dr. Gianni Deluna LIPASEon 04-20-2022 Lipase [Catalytic activity/Vol] 48.0 U/L Critically low 73.0-393.0 [facility] Comment on above: Performed By: #### L ACT #### [facility] [address] [place] [address] Dr. Gianni Deluna PROF 14(COMP METB)on 022 Albumin [Mass/Vol] 3.9 g/dL Normal 3.4-5.0 [facility] Comment on above: Performed By: #### L ACT #### [facility] [address] [place] [address] Dr. Gianni Deluna Albumin/Globulin [Mass ratio] 1.0 {ratio} Normal [facility] Comment on above: Performed By: #### L ACT #### [facility] [address] [place] [address] Dr. Gianni Deluna ALP [Catalytic activity/Vol] 127 U/L Critically high 46-116 [facility] Comment on above: Performed By: #### L ACT #### [facility] [address] [place] [address] Dr. Gianni Deluna ALT [Catalytic activity/Vol] 27 U/L Normal 16-63 [facility] Comment on above: Performed By: #### L ACT #### [facility] [address] [address] [address] Gianni Deluna Anion gap [Moles/Vol] 15.9 mmol/L Normal [facility] Comment on above: Performed By: #### L ACT #### [facility] [address] [address] [address] Gianni Deluna AST [Catalytic activity/Vol] 27 U/L Normal 15-37 [facility] Comment on above: Performed By: #### L ACT #### [facility] [address] [address] [address] Gianni Deluna Bilirubin [Mass/Vol] 0.9 mg/dL Normal 0.2-1.0 [facility] Comment on above: Performed By: #### L ACT #### [facility] [address] [address] [address] Gianni Deluna Calcium [Mass/Vol] 8.9 mg/dL Normal 8.5-10.1 [facility] Comment on above: Performed By: #### L ACT #### [facility] [address] [address] [address] Gianni Deluna Chloride [Moles/Vol] 103 mmol/L Normal 98-107 [facility] Comment on above: Performed By: #### L ACT #### [facility] [address] [address] [address] Gianni Deluna CO2 [Moles/Vol] 24.2 mmol/L Normal 21.0-32.0 [facility] Comment on above: Performed By: #### L ACT #### [facility] [address] [address] [address] Gianni Deluna Creatinine [Mass/Vol] 1.27 mg/dL Normal 0.70-1.30 [facility] Comment on above: Performed By: #### L ACT #### [facility] [address] [address] [address] Gianni Deluna EGFR-AF RWANDAN >60 Normal >=60 [facility] Comment on above: Performed By: #### L ACT #### [facility] [address] [address] [address] Gianni Deluna EGFR-NON AF RWANDAN 56 mL/min/1.73m2 Critically low >=60 [facility] Comment on above: Performed By: #### L ACT #### [facility] [address] [place] [address] Dr. Gianni Deluna Globulin (S) [Mass/Vol] 3.9 g/dL Normal [facility] Comment on above: Performed By: #### L ACT #### [facility] [address] [address] [address] Gianni Deluna Glucose [Mass/Vol] 145 mg/dL Critically high 74-106 [facility] Comment on above: Performed By: #### L ACT #### [facility] [address] [place] [address] Dr. Gianni Deluna Potassium [Moles/Vol] 4.1 mmol/L Normal 3.5-5.1 [facility] Comment on above: Performed By: #### L ACT #### [facility] [address] [place] [address] Dr. Gianni Deluna Protein [Mass/Vol] 7.8 g/dL Normal 6.4-8.2 [facility] Comment on above: Performed By: #### L ACT #### [facility] [address] [place] [address] Dr. Gianni Deluna Sodium [Moles/Vol] 139 mmol/L Normal 136-145 [facility] Comment on above: Performed By: #### L ACT #### [facility] [address] [place] [address] Dr. Gianni Deluna Urea nitrogen [Mass/Vol] 22.0 mg/dL Critically high 7.0-18.0 [facility] Comment on above: Performed By: #### L ACT #### [facility] [address] [place] [address] Dr. Gianni Deluna Urea nitrogen/Creatinine [Mass ratio] 17.3 mg/mg Normal [facility] Comment on above: Performed By: #### L ACT #### [facility] [address] [place] [address] Dr. Gianni Deluna XR ABD FLAT UP_PA [...] by: JAIMIE COOPER Date: 2022-04-20 21:58 Normal [facility] US RICHELLE DOP LEG LTon 03-18-20 [...] LAWANDA VEE Date: 2022-03-18 13:25 Normal [facility] [place] RICHELLE DOP LEG LTon 12-08-19 [place] [...] by: ANTONI JOLLEY Date: 2021-12-06 22:57 Normal [facility] Encounters Encounter Date Encounter Type Care Provider Facility Start: 10-26-2023 End: 10-27-2023 ambulatory Stefany Ballard MD Facility:[facility] Start: 09-21-2023 End: 09-22-2023 ambulatory Stefany Ballard MD Facility:[facility] Start: 08-31-2023 End: 09-01-2023 ambulatory Stefany Ballard MD Facility:[facility] Start: 07-17-2023 ambulatory Evens Archer MD Facility:[facility] Start: 07-08-2023 End: 07-08-2023 ambulatory [facility] Start: 06-29-2023 End: 06-29-2023 ambulatory [facility] Start: 06-29-2023 End: 06-29-2023 Encounter for other preprocedural examination [facility] Start: 06-17-2023 Encounter for other preprocedural examination [facility] Start: 05-20-2023 End: 05-20-2023 ambulatory [facility] Start: 05-13-2023 End: 05-14-2023 ambulatory Pramod HAYWARD [...] on above: Performed By: #### [facility] #### [facility] [address] [place] [address] Dr. Gianni Deluna Payers Date Payer Category Payer Unknown 2014 Unknown [id number] 1959 Self-pay [id number] 1959 Unknown [id number] 1954 Unknown [id number] 2.16.84 [id number] 1954 Unknown [id number] 2.16.84 [id number] 1954 Unknown [id number] 2.16.84 [id number] 1954 Unknown [id number] 2.16.84 [id number] 1954 Unknown [id number] 2.16.84 [id number] 1954 Unknown [id number] 2.16.84 0.1.840244.3.579.2.593 1954 Unknown [id number] 2.16.84 0.1.919330.3.579.2.593 1954 Unknown [id number] 2.16.84 0.1.551007.3.579.2.593 1954 Unknown [id number] 2.16.8 40.1.233971.3.579.2.727 1954 Unknown [id number] 2.16.8 40.1.141070.3.579.2.727 1954 Unknown [id number] 2.16.8 [id number] 1954 Unknown [id number] 2.16. [id number] 1954 Unknown [id number] 2.16. [id number] 1954 Unknown [id number] 2.16. [id number] Progress note 07-08-2023 Note Date & Type Note Facility 07-08-2023 Note [facility] SUBJECTIVE Chief Complaint Patient presents [...] Final Atrial Rate 06/29/2023 47 BPM Final MA Interval 06/29/2023 154 ms Final QRS DURATION 06/29/2023 82 ms Final QT Interval 06/29/2023 482 ms Final QTC CALCULATION(BAZETT) 06/29/2023 426 ms Final P [place] 06/29/2023 16 degrees Final R-[place] 06/29/2023 55 degrees Final T Wave [place] 06/29/2023 41 degrees Final No results found for: EXTCMP, BMPR1A, CBCDIF, BNP, BNP, LASAP, RED Testing/Procedures: No echocardiogram results found for the past 14 days No echocardiogram results found for the past 12 months Encounter Date: 06/29/23 ECG 12 lead Result Value Ventricular Rate 47 Atrial Rate 47 MA Interval 154 QR (more content not included)... [facility] Progress note 07-08-2023 Note Date & [...] All other systems reviewed and are negative. [facility] Progress note 06-29-2023 Note Date & [...] inhibitor Follow-up with Dr. Murillo in the [place] office in the next 2 to 4 weeks PROCEDURES: Ultrasound-guided access to the right common femoral artery, limited femoral angiography, ultrasound-guided access to the right common femoral vein, right heart catheterization, bilateral selective coronary angiography, placement of a 6 [place] [employer] licensed bondsman closure device METHODS: After risks, benefits, and [...] micropuncture kit was upsized to a 6 Latvian 11 cm sheath. Angiography via the sheath [...] procedure. All catheters were removed. A 5 [place] Myn[employer] closure device was deployed per protocol [...] device. INDICATIONS: Preoperative evaluation, coronary artery disease. [facility] Progress note 05-20-2023 Note Date & Type Note Facility 05-20-2023 Note [facility] Note Chief Complaint: New patient here to establish care. Ref from Dr. Archer for surgery clearance. He has hx of CAD and previously followed with [facility] back in 2015. He has [...] percutaneous revascularization. He was evaluated at the [facility] cardi[facility]acic [facility]. It was [...] and a reasonable target. Was seen at [facility]; single-vessel coronary artery disease with a [...] LAD. This wo (more content not included)... [facility] Clinical Note 05-13-2023 Note Date & [...] 10 mg Tab (more content not included)... [facility] Comment on above: Result Comment: Elec tronically [...] and content) DATE CREATED AUTHOR 11/21/2022 [facility] DATE CREATED AUTHOR AUTHOR'S ORGANIZ ATION 05/21/2023 [facility] DATE CREATED AUTHOR AUTHOR'S ORGANIZ ATION 07/10/2023 [facility] DATE CREATED AUTHOR AUTHOR'S ORGANIZ ATION 11/03/2023 [facility] FOR RECORDS PERTAINING TO PATIENTS WHO ARE [...] BE BASED ON THE PRIMARY CLINICAL RECORDS. [employer] [facility]. provides no warranty or guarantee of the accuracy or completeness of information in this document.
[2023-11-21 16:15] LABS: Glucometer 233 mg/dL (74-106)
[2023-11-21 16:16] VITALS: BP 168/78
[2023-11-21 16:34] LABS: Bilirubin Urine NEGATIVE (NEGATIVE); Blood Urine SMALL (NEGATIVE); Clarity Urine SL CLOUDY (CLEAR); Color Urine YELLOW (YELLOW); Glucose Urine UA 250 mg/dL (NEGATIVE); Ketones Urine NEGATIVE (NEGATIVE); Leukocyte Esterase Urine SMALL (NEGATIVE); Nitrite Urine POSITIVE (NEGATIVE); Protein Urine TRACE mg/dL (NEG/TRACE); Specific Gravity Urine >=1.030 (1.005-1.025); pH Urine 5.5 (5.0-9.0)
[2023-11-21 16:35] LABS: Urine Microscopic Indicated YES
[2023-11-21 16:45] LABS: Hematocrit 39.3 % (42.0-54.0); Hemoglobin 12.7 g/dL (14.0-18.0); Mean Corpuscular HGB Conc 32.3 g/dL (29.9-35.2); Mean Corpuscular Hemoglobin 32.2 pg (25.9-34.0); Mean Corpuscular Volume 99.5 fL (80.0-94.0); Mean Platelet Volume 9.1 fL (9.5-13.5); Platelet Count 191 10^3/uL (150-450); Red Blood Count 3.95 10^6/uL (4.70-6.10); Red Cell Distribution Width 13.9 % (11.0-15.0); White Blood Count 7.1 10^3/uL (4.0-11.0)
[2023-11-21 16:50] LABS: Bacteria Urine MODERATE #/HPF (NONE SEEN); Cast Seen? SEEN #/LPF (NONE SEEN); Crystals Seen? None Seen #/HPF (None Seen); Hyaline Casts Urine RARE; Mucus Urine MODERATE (NONE SEEN); Squamous Epithelial Cell Urine RARE #/LPF (NONE/RARE); WBC Urine 75-100 #/HPF (NONE SEEN)
[2023-11-21 16:58] LABS: Estimated Average Glucose 186 mg/dL; Glycohemoglobin A1C 8.1 % (4.5-6.2)
[2023-11-21 17:00] LABS: Alanine Aminotransferase 24 U/L (16-63); Albumin Globulin Ratio 0.8; Alkaline Phosphatase 126 U/L (46-116); Anion Gap 10.7; Aspartate Amino Transferase 15 U/L (15-37); BUN Creatinine Ratio 13.6; Bilirubin Total 0.6 mg/dL (0.2-1.0); Calcium 9.3 mg/dL (8.5-10.1); Carbon Dioxide 29.3 mmol/L (21.0-32.0); Chloride 107 mmol/L (98-107); Estimated GFR (African America >60 (>=60); Estimated GFR (Non-African Ame >60 (>=60); Globulin 3.8 g/dL; Glucose 262 mg/dL (74-106); Sodium 143 mmol/L (136-145); Total Protein 6.8 g/dL (6.4-8.2)
[2023-11-21 17:03] LABS: Troponin I High Sensitivity 5.7 pg/mL (4.0-76.1)
--- NOTE | 2023-11-21 17:08 | ED.GENADUL1 ---
HPI HPI - General Adult General Chief complaint: Recheck/Abnormal Lab/Rx Stated complaint: high blood sugar/non diabetic/freq urination Time Seen by Provider: 11/21/23 16:16 Source: patient and family Mode of arrival: walk-in Limitations: no limitations History of Present Illness HPI narrative: This patient is here with his for evaluation of a elevated blood sugar taken at home. He is not known to be diabetic. He is not currently on any steroids. He is also noticed a little bit of problems urinating. He has not had any recent instrumentation, patient is known to have high blood pressure and does take his medication medication as advocated. He has not had nausea vomiting or diarrhea. He does have a lot of problems with his back but it is doing pretty well after seeing pain management physicians. He had an echocardiogram done at this institution relatively recently but does not know the results specifically. Does not have any abdominal pain. No headache no shortness of breath or chest discomfort. Related Data Home Medications ?Medication ?Instructions ?Recorded ?Confirmed aspirin 325 mg tablet 325 mg PO DAILY 08/06/23 11/21/23 atorvastatin 40 mg tablet 40 mg PO DAILY 08/06/23 11/21/23 carvedilol 25 mg tablet 25 mg PO Q12H 08/06/23 11/21/23 furosemide 20 mg tablet 20 mg PO DAILY PRN edema 08/06/23 11/21/23 lansoprazole 15 mg delayed 15 mg PO Q12H 08/06/23 11/21/23 release,disintegrating tablet levothyroxine 50 mcg tablet 50 mcg PO QDAY 08/06/23 11/21/23 (Synthroid) nitroglycerin 0.4 mg sublingual 0.4 mg sublingual Q5M 08/06/23 11/21/23 tablet ranolazine 500 mg tablet,extended 500 mg PO Q12H 08/06/23 11/21/23 release,12 hr tizanidine 4 mg tablet 4 mg PO BEDTIME 08/06/23 11/21/23 zolpidem 10 mg tablet 10 mg PO QDAY 08/06/23 11/21/23 celecoxib 100 mg capsule 100 mg PO Q12H 08/31/23 11/21/23 Allergies Allergy/AdvReac Type Severity Reaction Status Date / Time Penicillins Allergy Verified 10/26/23 07:54 Opioid HPI Opioid Management Most Recent Opioid Data: Last Pain Scale 2 10/26/23 07:52 Last ED Pain Assessment 11/21/23 16:17 [facility] Medical History (Updated 11/21/23 @ 17:13 by Allan Mejia MD) Hypothyroid ?E03.9 - Hypothyroidism, unspecified (ICD-10) Thrombosis ?I82.90 - Acute embolism and thrombosis of unspecified vein (ICD-10) History of angina ?Z86.79 - Personal history of other diseases of the circulatory system (ICD-10) Hypertension ?I10 - Essential (primary) hypertension (ICD-10) Surgical History History of fusion of cervical spine ?Z98.1 - Arthrodesis status (ICD-10) History of appendectomy ?Z90.49 - Acquired absence of other specified parts of digestive tract (ICD-10) Hx of tonsillectomy ?Z90.89 - Acquired absence of other organs (ICD-10) Exam Narrative Exam Narrative: Awake alert pleasant here with his . Initial blood pressure was rechecked and is more in acceptable range. He does not have a headache or pressure. Cognition and mentation are normal he is excellent historian. Examining his lungs are clear with no wheeze rales or rhonchi no respiratory distress. Heart examination shows a grade 2/6 to 3/6 systolic ejection murmur. Otherwise no cardiac abnormalities. He does not have any abdominal discomfort today his trunk torso and extremities are normal. His neurological examination is normal. He does not appear ill or toxic. Skin and integument are normal with normal hydration status. Constitutional Vital Signs, click to edit/add: Last Vital Signs Temp 97.9 F 11/21/23 16:12 Pulse 61 11/21/23 16:12 Resp 18 11/21/23 16:12 BP 168/78 H 11/21/23 16:16 Pulse Ox 99 11/21/23 16:12 Course Vital Signs Vital signs: Vital Signs Temperature 97.9 F 11/21/23 16:12 Pulse Rate 61 11/21/23 16:12 Respiratory Rate 18 11/21/23 16:12 Blood Pressure 171/119 H 11/21/23 16:12 Pulse Oximetry 99 11/21/23 16:12 Temperature 97.9 F 11/21/23 16:12 Pulse Rate 61 11/21/23 16:12 Respiratory Rate 18 11/21/23 16:12 Blood Pressure 168/78 H 11/21/23 16:16 Pulse Oximetry 99 11/21/23 16:12 Medical Decision Making MDM Narrative Medical decision making narrative: Laboratory testing included urinalysis and his hemoglobin A1c. His bedside glucose is substantially elevated consistent with what they found at home. The blood pressure is normalized and his BUN and creatinine are essentially normal. At this stage we should start him on an antibiotic. The infection may cause elevation of his glucose but that needs to be watched very carefully for follow-up. They do have a local primary care doctor and they can follow-up with him. Will start him on Keflex Lab Data Labs: Lab Results 11/21/23 11/21/23 11/21/23 Range/Units 16:14 16:24 16:37 WBC 7.1 (4.0-11.0) 10^3/uL RBC 3.95 L (4.70-6.10) 10^6/uL Hgb 12.7 L (14.0-18.0) g/dL Hct 39.3 L (42.0-54.0) % MCV 99.5 H (80.0-94.0) fL MCH 32.2 (25.9-34.0) pg MCHC 32.3 (29.9-35.2) g/dL RDW 13.9 (11.0-15.0) % Plt Count 191 (150-450) 10^3/uL MPV 9.1 L (9.5-13.5) fL Sodium 143 (136-145) mmol/L Potassium 4.0 (3.5-5.1) mmol/L Chloride 107 (98-107) mmol/L Carbon Dioxide 29.3 (21.0-32.0) mmol/L Anion Gap 10.7 BUN 16.0 (7.0-18.0) mg/dL Creatinine 1.18 (0.70-1.30) mg/dL Est GFR ( Amer) >60 (>=60) Est GFR (Non-Af Amer) >60 (>=60) BUN/Creatinine Ratio 13.6 Glucose 262 H (74-106) mg/dL Estimat Average Glucose 186 mg/dL Hemoglobin A1c 8.1 H (4.5-6.2) % Calcium 9.3 (8.5-10.1) mg/dL Total Bilirubin 0.6 (0.2-1.0) mg/dL AST 15 (15-37) U/L ALT 24 (16-63) U/L Alkaline Phosphatase 126 H (46-116) U/L Troponin I High Sens 5.7 (4.0-76.1) pg/mL Total Protein 6.8 (6.4-8.2) g/dL Albumin 3.0 L (3.4-5.0) g/dL Globulin 3.8 g/dL Albumin/Globulin Ratio 0.8 Urine Color Yellow (YELLOW) Urine Clarity Sl cloudy (CLEAR) Urine pH 5.5 (5.0-9.0) Ur Specific [place] >=1.030 A (1.005-1.025) Urine Protein Trace (NEG/TRACE) mg/dL Urine Glucose (UA) 250 A (NEGATIVE) mg/dL Urine Ketones Negative (NEGATIVE) mg/dL Urine Occult Blood Small A (NEGATIVE) Urine Nitrite Positive A (NEGATIVE) Urine Bilirubin Negative (NEGATIVE) Urine Urobilinogen 1.0 (0.2-1.0) EU/dL Ur Leukocyte Esterase Small A (NEGATIVE) Urine RBC 5-10 A (0-2) #/HPF Urine WBC 75-100 A (NONE SEEN) #/HPF Ur Squamous Epith Cells Rare (NONE/RARE) #/LPF Urine Crystals None seen (None Seen) #/HPF Urine Bacteria Moderate A (NONE SEEN) #/HPF Urine Casts Seen A (NONE SEEN) #/LPF Hyaline Casts Rare Urine Mucus Moderate A (NONE SEEN) POC Glucose 233 H (74-106) mg/dL Discharge Plan Discharge Stand Alone Forms: Portal Instructions Chief Complaint: Recheck/Abnormal Lab/Rx Clinical Impression: Acute UTI Patient Disposition: Home, Self-Care Time of Disposition Decision: 17:12 Prescriptions / Home Meds: No Action atorvastatin 40 mg tablet 40 mg PO DAILY carvedilol 25 mg tablet 25 mg PO Q12H tizanidine 4 mg tablet 4 mg PO BEDTIME zolpidem 10 mg tablet 10 mg PO QDAY levothyroxine [Synthroid] 50 mcg tablet 50 mcg PO QDAY ranolazine 500 mg tablet extended release 12 hr 500 mg PO Q12H aspirin 325 mg tablet 325 mg PO DAILY furosemide 20 mg tablet 20 mg PO DAILY PRN (Reason: edema) lansoprazole 15 mg tablet,disintegrat, delay rel 15 mg PO Q12H nitroglycerin 0.4 mg tablet, sublingual 0.4 mg sublingual Q5M Rx Instructions: do not exceed 3 doses per episode celecoxib 100 mg capsule 100 mg PO Q12H Print Language: Syriac Additional Instructions: Start Keflex. Recheck your urine in approximately 5 to 7 days. Drink plenty of extra fluids. Recheck your blood sugar as well with your PCP Referrals: Eriberto Archer MD [Primary Care Provider] - 1 week
[2023-11-21 17:17] LABS: Band Neutrophils Absolute 0.3 10^3/uL (0.0-0.3); Eosinophils Absolute Manual 0.42 10^3/uL (0.00-0.70); Lymphocytes Absolute Manual 1.63 10^3/uL (1.20-3.80); Metamyelocytes Absolute Manual 0.21; Monocytes Absolute Manual 0.63 10^3/uL (0.30-0.80)
[2023-11-21] MEDS: CEPHALEXIN 500 MG CAPSULE PO (17:22)
[2023-11-21 17:25] VITALS: BP 152/70; PULSE 56; O2SAT 99
== END 2023-11-21 17:27 | disposition home or self-care (01) ==
PROVIDERS: Emergency Provider Emergency Medicine Emergency Medical Services; PCP Family Medicine
DX: N39.0 Urinary tract infection, site not specified (principal); E03.9 Hypothyroidism, unspecified; I10 Essential (primary) hypertension; Z98.1 Arthrodesis status; Z79.890 Hormone replacement therapy; Z79.899 Other long term (current) drug therapy; Z90.49 Acquired absence of other specified parts of digestive tract; Z90.89 Acquired absence of other organs; Z79.82 Long term (current) use of aspirin
CPT/HCPCS: 36415; 80053; 81001; 82948; 83036; 84484; 85007; 85027; 99284

== ENCOUNTER 2023-11-28 13:46 | Inpatient (IN) | payer MEDICARE, SELFPAY ==
[2023-11-28] VITALS (7 sets, daily range): BP systolic 128–170; BP diastolic 71–87; PULSE 60–80; TEMP 36.8; O2SAT 94–98; BMI 21.9; BMI 21.7
--- OUTSIDE RECORDS SUMMARY | 2023-11-28 13:56 | XMS_ITS | CCD ---
Author Organization [facility] Care Team Providers Care Night Time Nanny Name Role Phone MADAIY ., DR HORNER [...] Penicillins; 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: [penicillins] Drug allergy (disorder) 10-25-2014 [facility] Repository (2 sources) HYDROcodone; 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: [HYDROcodone] Drug Allergy 10-25-2014 [facility] Repository (1 source) nabumetone; 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: [Relafen] Drug Allergy [facility] Repository (1 source) amLODIPine; 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: [AMLODIPINE] Drug Allergy 05-20-2023 [facility] Repository (1 source) nabumetone; 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: [NABUMETONE] Drug Allergy 10-25-2014 [facility] Repository Problems Active Problems Problem Classification Problem Date Documented Date Episodic/Chronic Coronary atherosclerosis and other heart disease (3 sources) Atherosclerotic heart disease of ramona coronary artery without angina pectoris; 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: [Unstable [...] Onset: 04-24-2022 Episodic Other aftercare (1 source) jail (current) use of aspirin; 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 30-39 MIN Reason for Visit and Comments: Edema [[id number]] Normal [facility] ANESon 06-29-2023 ANES -- Attestation signed by Eliane Murillo MD at 06/29/2023 9:56 AM Eliane Murillo MD, MPH, [facility], [facility], [facility] Interventional Cardiology Pager Email: [email or web address] Patient: Donnie Denton Procedure Information Date/Time: 06/29/23 1030 Procedures: Coronary angiography (Bilateral) - per Maria G in pre-cert at [facility], this has already been authorized thru Aug 2023 - right femoral approach Right heart cath Location: [facility] 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 Additional Equipment Requests Normal [facility] HPon 06-29-2023 HP -- Attestation signed by Eliane Murillo MD at 06/29/2023 9:57 AM Eliane Murillo MD, MPH, [facility], [facility], [facility] Interventional Cardiology Pager Email: [email or web address] History Of Present Illness Donnie Denton is [...] treated since 2014. Meaghan Mukherjee DO, MPH Emergency Service Restorer [facility] Nabila 06-29-2023 KIERA RN educated pt on d/ c instructions. RN encouraged pt to voice any questions or concerns. Pt verbalizes no questions or concerns at this time. [facility] Orders Onlyon 06-17-2023 Orders Only [id number] Chung Denton 1955 Date Provider Department Center 06/17/2023 Avi-DEIRDRE RIDLEY CARD [facility] Family History Problem Relation Age of Onset Heart attack Paternal Grandfather Family Status - Relation Status Age at Paternal Grandfather Normal [facility] Letter (Out)on 05-26-2023 Letter (Out) [id number] Chung Denton R 1955 Provider Department Center 05/26/2023 None-None [facility] AUTH [place] [facility] Family History Problem Relation Age of Onset Heart attack Paternal Grandfather Family Status - Relation Status Age at Paternal Grandfather Normal [facility] Office Visiton 05-20-2023 Follow-up visit [id number] Chung Denton R 1955 [facility] Provider Department Center 05/20/2023 271-ELIANE MURILLO Hos Family History Problem Relation Age of Onset Heart attack Paternal Grandfather Family Status - Relation Status Age at Paternal Grandfather Level of Service:[id number] RI OFFICE/OUTPATIENT [facility] 60-74 MINUTES Normal [facility] Orders Onlyon 05-20-2023 Orders Only [id number] Chung Denton R 1955 [facility] Provider Department Center 05/20/2023 Walker-HIMANSHU MCMILLAN VALERIANO [facility] Family History Problem Relation Age of Onset Heart attack Paternal Grandfather Family Status - Relation Status Age at Paternal Grandfather Normal [facility] Facesheeton 05-14-2023 Facesheet [id number] D:127 Normal [facility] Ambulatory Visit Summaryon 0 05-13-2023 Ambulatory [...] Spondylosis of cervical spine Ureteral calculus Normal [facility] Physician Referralon 023 Physician Referral [id number] CD:127 Normal [facility] XR HIP RT 2 3V W [...] ANTONI PENALOZA Date: 2022-11-13 22:38 Normal [facility] XR LSPINE MIN 4 VIEWSon 10-17 [...] paraspinous abnormality is seen. OTHER: Negative. IMPRESSION: [id number] degenerative changes Electronically authenticated by: ANTONI TRACEY Date: 2022-11-14 07:58 Normal [facility] CREATININEon 11-11-2022 Creatinine [Mass/Vol] 1.04 mg/dL Normal 0.70-1.30 [facility] Comment on above: Performed By: #### C ASIF #### [facility] Laboratory [address] [address] [address] Gianni Deluna EGFR-AF KUWAITI >60 Normal >=60 [facility] Comment on above: Performed By: #### C ASIF #### [facility] Laboratory [address] [address] [address] Gianni Deluna EGFR-NON AF KUWAITI >60 Normal >=60 [facility] Comment on above: Performed By: #### C ASIF #### [facility] Laboratory [address] [place] [address] CHEST W CONon [...] by: PA CROW Date: 2022-11-11 11:29 Normal [facility] MRI [facility] WO CONon 08-14-20 22 MRI [facility] CON EXAMINATION: MRI [facility] [...] ANTONI TRACEY Date: 2022-08-14 09:19 Normal [facility] INSULINon 06-04-2022 Insulin 13.5 uIU/mL Normal 2.6-24.9 [facility] Comment on above: Performed By: #### L ACT #### [facility] Laboratory [address] [place] [address] Dr. Gianni Deluna CBC AUTO DIFFon 06-03-2022 BASO # 0.1 103/ul Normal 0.0-0.1 [facility] Comment on above: Performed By: #### L ACT #### [facility] Laboratory [address] [place] [address] Dr. Gianni Deluna Basophils/100 WBC (Bld) 1.2 % Normal 0.2-2.0 [facility] Comment on above: Performed By: #### L ACT #### [facility] Laboratory [address] [place] [address] Dr. Gianni Deluna EO # 0.4 103/ul Normal 0.0-0.7 [facility] Comment on above: Performed By: #### L ACT #### [facility] Laboratory [address] [place] [address] Dr. Gianni Deluna Eosinophils/100 WBC (Bld) 5.9 % Normal 0.9-7.0 [facility] Comment on above: Performed By: #### L ACT #### [facility] [address] [place] [address] Dr. Gianni Deluna Erythrocyte distribution width (RBC) [Ratio] 13.4 % Normal 11.0-15.0 [facility] Comment on above: Performed By: #### L ACT #### [facility] [address] [place] [address] Dr. Gianni Deluna Hematocrit (Bld) [Volume fraction] 39.6 % Critically low 42.0-54.0 [facility] Comment on above: Performed By: #### L ACT #### [facility] [address] [place] [address] Dr. Gianni Deluna Hemoglobin (Bld) [Mass/Vol] 12.8 g/dL Critically low 14.0-18.0 [facility] Comment on above: Performed By: #### L ACT #### [facility] [address] [place] [address] Dr. Gianni Deluna IG # 0.04 10e3/ul Critically high 0.00-0.03 The [facility] Comment on above: Performed By: #### L ACT #### [facility] [address] [place] [address] Dr. Gianni Deluna IG % 0.7 % Critically high 0.0-0.5 [facility] Comment on above: Performed By: #### L ACT #### [facility] [address] [place] [address] Dr. Gianni Deluna LYMPH # 1.9 103/ul Normal 1.2-3.8 [facility] Comment on above: Performed By: #### L ACT #### [facility] [address] [place] [address] Dr. Gianni Deluna Lymphocytes/100 WBC (Bld) 31.7 % Normal 20.5-60.0 [facility] Comment on above: Performed By: #### L ACT #### [facility] [address] [place] [address] Dr. Gianni Deluna MANUAL DIFF REQ NO Normal [facility] Comment on above: Performed By: #### L ACT #### [facility] [address] [place] [address] Dr. Gianni Deluna MCH (RBC) [Entitic mass] 30.2 pg Normal 25.9-34.0 [facility] Comment on above: Performed By: #### L ACT #### [facility] [address] [place] [address] Dr. Gianni Deluna MCHC (RBC) [Mass/Vol] 32.3 g/dL Normal 29.9-35.2 [facility] Comment on above: Performed By: #### L ACT #### [facility] [address] [address] [address] Gianni Deluna MCV (RBC) [Entitic vol] 93.4 fL Normal 80.0-94.0 [facility] Comment on above: Performed By: #### L ACT #### [facility] [address] [address] [address] Gianni Deluna MONO # 0.7 103/ul Normal 0.3-0.8 [facility] Comment on above: Performed By: #### L ACT #### [facility] [address] [address] [address] Gianni Deluna Monocytes/100 WBC (Bld) 11.9 % Normal 1.7-12.0 [facility] Comment on above: Performed By: #### L ACT #### [facility] [address] [address] [address] Gianni Deluna NEUT # 2.9 103/ul Normal 1.4-6.5 [facility] Comment on above: Performed By: #### L ACT #### [facility] [address] [address] [address] Gianni Deluna Neutrophils/100 WBC (Bld) 48.6 % Normal 43.0-75.0 [facility] Comment on above: Performed By: #### L ACT #### [facility] [address] [address] [address] Gianni Deluna Platelet mean volume (Bld) [Entitic vol] 9.1 fL Critically low 9.5-13.5 [facility] Comment on above: Performed By: #### L ACT #### [facility] [address] [place] [address] Dr. Gianni Deluna PLT 168 103/ul Normal 150-450 [facility] Comment on above: Performed By: #### L ACT #### [facility] [address] [address] [address] Gianni Deluna RBC 4.24 106/ul Critically low 4.70-6.10 [facility] Comment on above: Performed By: #### L ACT #### [facility] [address] [place] [address] Dr. Gianni Deluna WBC 6.0 103/ul Normal 4.0-11.0 [facility] Comment on above: Performed By: #### L ACT #### [facility] [address] [address] [address] Gianni Deluna FREE THYROXINE INDEX T7on FTI 1.91 Normal 1.30-4.50 [facility] Comment on above: Performed By: #### L ACT #### [facility] [address] [place] [address] Dr. Gianni Deluna T3U 36.0 % Normal 33.0-40.0 [facility] Comment on above: Performed By: #### L ACT #### [facility] [address] [place] [address] Dr. Gianni Deluna T4 [Mass/Vol] 5.30 ug/dL Normal 4.50-12.10 [facility] Comment on above: Performed By: #### L ACT #### [facility] [address] [place] [address] Dr. Gianni Deluna GLYCOHEMOGLOBIN A1Con 2021 ADA RECOMMENDATION SEE BELOW Normal [facility] Comment on above: Result Comment: ADA RECOMMENDED LIMIT 4.0 - 6.0 ADA THERAPEUTIC TARGET < 7.0 ACTION SUGGESTED > 7.0 Performed By: #### D DIM #### [facility] [address] [place] [address] Dr. Gianni Deluna Glucose [Mass/Vol] 140 mg/dL Normal [facility] Comment on above: Performed By: #### D DIM #### [facility] [address] [place] [address] Dr. Gianni Deluna HbA1c (Bld) [Mass fraction] 6.5 % Critically high 4.5-6.2 [facility] Comment on above: Performed By: #### D DIM #### [facility] [address] [place] [address] Dr. Gianni Deluna LIPID PROFILEon 06-03-2022 CHOL-HDL RATIO NORM SEE BELOW Normal [facility] Comment on above: Result Comment: 3.3 - 4.4 LOW RISK 4.4 - 7.1 AVERAGE RISK 7.1 - 11.0 MODERATE RISK >11.0 HIGH RISK Performed By: #### T SH, T7, URIC, CMP, LIPID #### [facility] [address] [address] [address] Gianni Deluna Cholesterol [Mass/Vol] 104 mg/dL Normal <=200 [facility] Comment on above: Performed By: #### T SH, T7, URIC, CMP, LIPID #### [facility] [address] [address] [address] Gianni Deluna Cholesterol in HDL [Mass/Vol] 49 mg/dL Normal 40-60 [facility] Comment on above: Performed By: #### T SH, T7, URIC, CMP, LIPID #### [facility] [address] [address] [address] Gianni Deluna Cholesterol in LDL [Mass/Vol] 46.6 mg/dL Normal [facility] Comment on above: Performed By: #### T SH, T7, URIC, CMP, LIPID #### [facility] [address] [address] [address] Gianni Deluna Cholesterol.total/Ch olesterol in HDL [Mass ratio] 2.1 {ratio} Normal [facility] Comment on above: Performed By: #### T SH, T7, URIC, CMP, LIPID #### [facility] [address] [address] [address] Gianni Deluna HDL NORMAL > or = 60 mg/dl - LO W CARDIOVASCULAR RISK <40 mg/dl - HIGH CARDIOVASCULAR RISK Normal [facility] Comment on above: Performed By: #### T SH, T7, URIC, CMP, LIPID #### [facility] [address] [place] [address] Dr. Gianni Deluna LDL CALC NORMAL SEE BELOW Normal [facility] Comment on above: Result Comment: <100 mg/dl OPTIMAL 100 - 129 mg/dl NEAR OR ABOVE OPTIMAL 130 - 159 mg/dl BORDERLINE HIGH 160 - 189 mg/dl HIGH >190 mg/dl VERY HIGH Performed By: #### T SH, T7, URIC, CMP, LIPID #### [facility] [address] [address] [address] Gianni Deluna Triglyceride [Mass/Vol] 42 mg/dL Normal <=150 [facility] Comment on above: Performed By: #### T SH, T7, URIC, CMP, LIPID #### [facility] [address] [address] [address] Gianni Deluna VLDL CALC 8.4 mg/dL Normal [facility] Comment on above: Performed By: #### T SH, T7, URIC, CMP, LIPID #### [facility] [address] [place] [address] Dr. Gianni Deluna PROF 14(COMP METB)on 022 Albumin [Mass/Vol] 2.9 g/dL Critically low 3.4-5.[address] [facility] Comment on above: Performed By: #### T SH, T7, URIC, CMP, LIPID #### [facility] [address] [place] [address] Dr. Gianni Deluna Albumin/Globulin [Mass ratio] 0.8 {ratio} Normal [facility] Comment on above: Performed By: #### T SH, T7, URIC, CMP, LIPID #### [facility] [address] [place] [address] Dr. Gianni Deluna ALP [Catalytic activity/Vol] 127 U/L Critically high 46-116 [facility] Comment on above: Performed By: #### T SH, T7, URIC, CMP, LIPID #### [facility] [address] [place] [address] Dr. Gianni Deluna ALT [Catalytic activity/Vol] 23 U/L Normal 16-63 [facility] Comment on above: Performed By: #### T SH, T7, URIC, CMP, LIPID #### [facility] [address] [place] [address] Dr. Gianni Deluna Anion gap [Moles/Vol] 8.4 mmol/L Normal [facility] Comment on above: Performed By: #### T SH, T7, URIC, CMP, LIPID #### [facility] [address] [place] [address] Dr. Gianni Deluna AST [Catalytic activity/Vol] 21 U/L Normal 15-37 [facility] Comment on above: Performed By: #### T SH, T7, URIC, CMP, LIPID #### [facility] [address] [place] [address] Dr. Gianni Deluna Bilirubin [Mass/Vol] 0.5 mg/dL Normal 0.2-1.0 [facility] Comment on above: Performed By: #### T SH, T7, URIC, CMP, LIPID #### [facility] [address] [place] [address] Dr. Gianni Deluna Calcium [Mass/Vol] 8.3 mg/dL Critically low 8.5-10.1 Th e [facility] Comment on above: Performed By: #### T SH, T7, URIC, CMP, LIPID #### [facility] [address] [place] [address] Dr. Gianni Deluna Chloride [Moles/Vol] 107 mmol/L Normal 98-107 [facility] Comment on above: Performed By: #### T SH, T7, URIC, CMP, LIPID #### [facility] [address] [place] [address] Dr. Gianni Deluna CO2 [Moles/Vol] 30.6 mmol/L Normal 21.0-32.0 [facility] Comment on above: Performed By: #### T SH, T7, URIC, CMP, LIPID #### [facility] [address] [place] [address] Dr. Gianni Deluna Creatinine [Mass/Vol] 0.93 mg/dL Normal 0.70-1.30 [facility] Comment on above: Performed By: #### T SH, T7, URIC, CMP, LIPID #### [facility] [address] [place] [address] Dr. Gianni Deluna EGFR-AF KUWAITI >60 Normal >=60 [facility] Comment on above: Performed By: #### T SH, T7, URIC, CMP, LIPID #### [facility] [address] [address] [address] Gianni Deluna EGFR-NON AF [place]I >60 Normal >=60 [facility] Comment on above: Performed By: #### T SH, T7, URIC, CMP, LIPID #### [facility] [address] [address] [address] Gianni Deluna Globulin (S) [Mass/Vol] 3.5 g/dL Normal [facility] Comment on above: Performed By: #### T SH, T7, URIC, CMP, LIPID #### [facility] [address] [place] [address] Dr. Gianni Deluna Glucose [Mass/Vol] 114 mg/dL Critically high 74-106 [facility] Comment on above: Performed By: #### T SH, T7, URIC, CMP, LIPID #### [facility] [address] [place] [address] Dr. Gianni Deluna Potassium [Moles/Vol] 4.0 mmol/L Normal 3.5-5.1 [facility] Comment on above: Performed By: #### T SH, T7, URIC, CMP, LIPID #### [facility] [address] [place] [address] Dr. Gianni Deluna Protein [Mass/Vol] 6.4 g/dL Normal 6.4-8.2 [facility] Comment on above: Performed By: #### T SH, T7, URIC, CMP, LIPID #### [facility] [address] [address] [address] Gianni Deluna Sodium [Moles/Vol] 142 mmol/L Normal 136-145 [facility] Comment on above: Performed By: #### T SH, T7, URIC, CMP, LIPID #### [facility] [address] [address] [address] Gianni Deluna Urea nitrogen [Mass/Vol] 11.0 mg/dL Normal 7.0-18.0 [facility] Comment on above: Performed By: #### T SH, T7, URIC, CMP, LIPID #### [facility] [address] [place] [address] Dr. Gianni Deluna Urea nitrogen/Creatinine [Mass ratio] 11.8 mg/mg Normal [facility] Comment on above: Performed By: #### T SH, T7, URIC, CMP, LIPID #### [facility] [address] [place] [address] Dr. Gianni Deluna TSHon 06-03-2022 TSH 0.814 uIU/mL Normal 0.358-3.740 [facility] Comment on above: Performed By: #### L ACT #### [facility] [address] [place] [address] Dr. Gianni Deluna URIC ACID SERUMon 06-03-2022 Urate [Mass/Vol] 5.2 mg/dL Normal 3.5-7.2 [facility] Comment on above: Performed By: #### T SH, T7, URIC, CMP, LIPID #### [facility] [address] [place] [address] Dr. Gianni Deluna CARDIAC ALEX 3-6on 2 CK [Catalytic activity/Vol] 82 U/L Normal 39-308 [facility] Comment on above: Performed By: #### L ACT #### [facility] [address] [place] [address] Dr. Gianni Deluna CK.MB [Mass/Vol] 2.40 ng/mL Normal <=3.60 [facility] Comment on above: Performed By: #### L ACT #### [facility] [address] [place] [address] Dr. Gianni Deulna HSTROP 8.6 pg/mL Normal 4.0-76.1 [facility] Comment on above: Result Comment: CUT- OFF POINTS HAVE BEEN ESTABLISHED BASED ON THE FOURTH UNIVERSAL DEFINITIONS OF MYOCARDIAL INFARCTION. THE UPPER REFERENCE LIMIT (URL) OF TROPONIN, DEFINED THE 99TH PERCENTILE OF cTnI DISTRIBUTION IN A REFERENCE POPULATION, HAS BEEN CONFIRMED THE DECISION THRESHOLD FOR [place] DIAGNOSIS. Performed By: #### L ACT #### [facility] [address] [place] [address] ABD/PELV W CONon [...] by: JAIMIE COOPER Date: 2022-04-21 00:38 Normal [facility] LACTATE/LACTIC ACIDon 2021 Lactate [Moles/Vol] 2.2 mmol/L Critically high 0.4-1.9 [facility] Comment on above: Performed By: #### L ACT #### [facility] [address] [address] [address] Gianni Deluna AMYLASEon 04-20-2022 Amylase [Catalytic activity/Vol] 139 U/L Critically high 25-115 [facility] Comment on above: Performed By: #### L ACT #### [facility] [address] [address] [address] Gianni Deluna CARDIAC ALEX ADMITon 022 CK [Catalytic activity/Vol] 88 U/L Normal 39-308 [facility] Comment on above: Performed By: #### C MADM #### [facility] [address] [address] [address] Gianni Deluna CK.MB [Mass/Vol] 1.82 ng/mL Normal <=3.60 [facility] Comment on above: Performed By: #### C MADM #### [facility] [address] [place] [address] Dr. Gianni Deluna HSTROP 7.2 pg/mL Normal 4.0-76.1 [facility] Comment on above: Result Comment: CUT- OFF POINTS HAVE BEEN ESTABLISHED BASED ON THE FOURTH UNIVERSAL DEFINITIONS OF MYOCARDIAL INFARCTION. THE UPPER REFERENCE LIMIT (URL) OF TROPONIN, DEFINED THE 99TH PERCENTILE OF cTnI DISTRIBUTION IN A REFERENCE POPULATION, HAS BEEN CONFIRMED THE DECISION THRESHOLD FOR AK DIAGNOSIS. Performed By: #### C MADM #### [facility] [address] [place] [address] Dr. Gianni Deluna FILIBERTO 93 ng/mL Normal 16-96 [facility] Comment on above: Performed By: #### C MADM #### [facility] [address] [place] [address] Dr. Gianni Deluna CBC AUTO DIFFon 04-20-2022 BASO # 0.0 103/ul Normal 0.0-0.1 [facility] Comment on above: Performed By: #### C BC #### [facility] [address] [place] [address] Dr. Gianni Deluna Basophils/100 WBC (Bld) 0.3 % Normal 0.2-2.0 [facility] Comment on above: Performed By: #### C BC #### [facility] [address] [place] [address] Dr. Gianni Deluna EO # 0.0 103/ul Normal 0.0-0.7 [facility] Comment on above: Performed By: #### C BC #### [facility] [address] [place] [address] Dr. Gianni Deluna Eosinophils/100 WBC (Bld) 0.1 % Critically low 0.9-7.0 [facility] Comment on above: Performed By: #### C BC #### [facility] [address] [place] [address] Dr. Gianni Deluna Erythrocyte distribution width (RBC) [Ratio] 13.5 % Normal 11.0-15.0 [facility] Comment on above: Performed By: #### C BC #### [facility] [address] [address] [address] Gianni Deluna Hematocrit (Bld) [Volume fraction] 45.8 % Normal 42.0-54.0 [facility] Comment on above: Performed By: #### C BC #### [facility] [address] [address] [address] Gianni Deluna Hemoglobin (Bld) [Mass/Vol] 15.3 g/dL Normal 14.0-18.0 [facility] Comment on above: Performed By: #### C BC #### [facility] [address] [address] [address] Gianni Deluna IG # 0.05 10e3/ul Critically high 0.00-0.03 [facility] Comment on above: Performed By: #### C BC #### [facility] [address] [place] [address] Dr. Gianni Deluna IG % 0.5 % Normal 0.0-0.5 [facility] Comment on above: Performed By: #### C BC #### [facility] [address] [address] [address] Gianni Deluna LYMPH # 0.8 103/ul Critically low 1.2-3.8 [facility] Comment on above: Performed By: #### C BC #### [facility] [address] [place] [address] Dr. Gianni Deluna Lymphocytes/100 WBC (Bld) 7.7 % Critically low 20.5-60.0 [facility] Comment on above: Performed By: #### C BC #### [facility] [address] [place] [address] Dr. Gianni Deluna MANUAL DIFF REQ NO Normal [facility] Comment on above: Performed By: #### C BC #### [facility] [address] [place] [address] Dr. Gianni Deluna MCH (RBC) [Entitic mass] 30.4 pg Normal 25.9-34.0 [facility] Comment on above: Performed By: #### C BC #### [facility] [address] [place] [address] Dr. Gianni Deluna MCHC (RBC) [Mass/Vol] 33.4 g/dL Normal 29.9-35.2 [facility] Comment on above: Performed By: #### C BC #### [facility] [address] [address] [address] Gianni Deluna MCV (RBC) [Entitic vol] 90.9 fL Normal 80.0-94.0 [facility] Comment on above: Performed By: #### C BC #### [facility] [address] [address] [address] Gianni Deluna MONO # 0.4 103/ul Normal 0.3-0.8 [facility] Comment on above: Performed By: #### C BC #### [facility] [address] [address] [address] Gianni Deluna Monocytes/100 WBC (Bld) 3.3 % Normal 1.7-12.0 [facility] Comment on above: Performed By: #### C BC #### [facility] [address] [address] [address] Gianni Deluna NEUT # 9.7 103/ul Critically high 1.4-6.5 [facility] Comment on above: Performed By: #### C BC #### [facility] [address] [address] [address] Gianni Deluna Neutrophils/100 WBC (Bld) 88.1 % Critically high 43.0-75.0 [facility] Comment on above: Performed By: #### C BC #### [facility] [address] [address] [address] Gianni Deluna Platelet mean volume (Bld) [Entitic vol] 8.9 fL Critically low 9.5-13.5 [facility] Comment on above: Performed By: #### C BC #### [facility] [address] [address] [address] Gianni Deluna PLT 198 103/ul Normal 150-450 [facility] Comment on above: Performed By: #### C BC #### [facility] [address] [address] [address] Gianni Deluna RBC 5.04 106/ul Normal 4.70-6.10 [facility] Comment on above: Performed By: #### C BC #### [facility] [address] [place] [address] Dr. Gianni Deluna WBC 11.0 103/ul Normal 4.0-11.0 [facility] Comment on above: Performed By: #### C BC #### [facility] [address] [place] [address] Dr. Gianni Deluna Covid-19 PCR (CVDTB)on SARS-CoV-2 (COVID-19) RNA NICHOLE+probe Ql (Unsp spec) Not detected Normal NOT DETECTED [facility] Comment on above: Result Comment: When [...] for this test is supported by the [place] of Health and Human Service's declaration that [...] used). Performed By: #### C VDTBH #### [facility] [address] [place] [address] Dr. Gianni Deluna D-DIMERon 04-20-2022 D-DIMER 0.37 mg/L FEU Normal <=0.59 [facility] Comment on above: Performed By: #### D DIM #### [facility] [address] [place] [address] Dr. Gianni Deluna D-DIMER COMMENTS SEE BELOW Normal [facility] Comment on above: Result Comment: Incr eases [...] hospitalization. Performed By: #### D DIM #### [facility] [address] [place] [address] Dr. Gianni Deluna LACTATE/LACTIC ACIDon 2021 Lactate [Moles/Vol] 2.3 mmol/L Critically high 0.4-1.9 [facility] Comment on above: Performed By: #### L ACT #### [facility] [address] [place] [address] Dr. Gianni Deluna LIPASEon 04-20-2022 Lipase [Catalytic activity/Vol] 48.0 U/L Critically low 73.0-393.0 [facility] Comment on above: Performed By: #### L ACT #### [facility] [address] [place] [address] Dr. Gianni Deluna PROF 14(COMP METB)on 022 Albumin [Mass/Vol] 3.9 g/dL Normal 3.4-5.0 [facility] Comment on above: Performed By: #### L ACT #### [facility] [address] [place] [address] Dr. Gianni Deluna Albumin/Globulin [Mass ratio] 1.0 {ratio} Normal [facility] Comment on above: Performed By: #### L ACT #### [facility] [address] [place] [address] Dr. Gianni Deluna ALP [Catalytic activity/Vol] 127 U/L Critically high 46-116 [facility] Comment on above: Performed By: #### L ACT #### [facility] [address] [place] [address] Dr. Gianni Deluna ALT [Catalytic activity/Vol] 27 U/L Normal 16-63 [facility] Comment on above: Performed By: #### L ACT #### [facility] [address] [address] [address] Gianni Deluna Anion gap [Moles/Vol] 15.9 mmol/L Normal [facility] Comment on above: Performed By: #### L ACT #### [facility] [address] [address] [address] Gianni Deluna AST [Catalytic activity/Vol] 27 U/L Normal 15-37 [facility] Comment on above: Performed By: #### L ACT #### [facility] [address] [address] [address] Gianni Deluna Bilirubin [Mass/Vol] 0.9 mg/dL Normal 0.2-1.0 [facility] Comment on above: Performed By: #### L ACT #### [facility] [address] [address] [address] Gianni Deluna Calcium [Mass/Vol] 8.9 mg/dL Normal 8.5-10.1 [facility] Comment on above: Performed By: #### L ACT #### [facility] [address] [address] [address] Gianni Deluna Chloride [Moles/Vol] 103 mmol/L Normal 98-107 [facility] Comment on above: Performed By: #### L ACT #### [facility] [address] [address] [address] Gianni Deluna CO2 [Moles/Vol] 24.2 mmol/L Normal 21.0-32.0 [facility] Comment on above: Performed By: #### L ACT #### [facility] [address] [address] [address] Gianni Deluna Creatinine [Mass/Vol] 1.27 mg/dL Normal 0.70-1.30 [facility] Comment on above: Performed By: #### L ACT #### [facility] [address] [address] [address] Gianni Deluna EGFR-AF [place] >60 Normal >=60 [facility] Comment on above: Performed By: #### L ACT #### [facility] [address] [address] [address] Gianni Deluna EGFR-NON AF [place] 56 mL/min/1.73m2 Critically low >=60 [facility] Comment on above: Performed By: #### L ACT #### [facility] [address] [place] [address] Dr. Gianni Deluna Globulin (S) [Mass/Vol] 3.9 g/dL Normal [facility] Comment on above: Performed By: #### L ACT #### [facility] [address] [address] [address] Gianni Deluna Glucose [Mass/Vol] 145 mg/dL Critically high 74-106 [facility] Comment on above: Performed By: #### L ACT #### [facility] [address] [place] [address] Dr. Gianni Deluna Potassium [Moles/Vol] 4.1 mmol/L Normal 3.5-5.1 [facility] Comment on above: Performed By: #### L ACT #### [facility] [address] [place] [address] Dr. Gianni Deluna Protein [Mass/Vol] 7.8 g/dL Normal 6.4-8.2 [facility] Comment on above: Performed By: #### L ACT #### [facility] [address] [place] [address] Dr. Gianni Deluna Sodium [Moles/Vol] 139 mmol/L Normal 136-145 [facility] Comment on above: Performed By: #### L ACT #### [facility] [address] [place] [address] Dr. Gianni Deluna Urea nitrogen [Mass/Vol] 22.0 mg/dL Critically high 7.0-18.0 [facility] Comment on above: Performed By: #### L ACT #### [facility] [address] [place] [address] Dr. Gianni Deluna Urea nitrogen/Creatinine [Mass ratio] 17.3 mg/mg Normal [facility] Comment on above: Performed By: #### L ACT #### [facility] [address] [place] [address] Dr. Gianni Deluna XR ABD FLAT UP_PA [...] by: JAIMIE COOPER Date: 2022-04-20 21:58 Normal [facility] US RICHELLE DOP LEG LTon 03-18-20 [...] LAWANDA VEE Date: 2022-03-18 13:25 Normal [facility] US RICHELLE DOP LEG LTon 12-08-19 [...] by: ANTONI JOLLEY Date: 2021-12-06 22:57 Normal [facility] Encounters Encounter Date Encounter Type Care Provider Facility Start: 10-26-2023 End: 10-27-2023 ambulatory Stefany Ballard MD Facility:[facility] Start: 09-21-2023 End: 09-22-2023 ambulatory Stefany Ballard MD Facility:[facility] Start: 08-31-2023 End: 09-01-2023 ambulatory Stefany Ballard MD Facility:[facility] Start: 07-17-2023 ambulatory Evens Archer MD Facility:[facility] Start: 07-08-2023 End: 07-08-2023 ambulatory [facility] Start: 06-29-2023 End: 06-29-[address] [facility] Start: 06-29-2023 End: 06-29-2023 Encounter for other preprocedural examination [facility] Start: 06-17-2023 Encounter for other preprocedural examination [facility] Start: 05-20-2023 End: 05-20-[address] [facility] Start: 05-13-2023 End: 05-14-2023 ambulatory Pramod [...] Comment on above: Performed By: #### P [facility] #### [facility] [address] [place] [address] Dr. Gianni Deluna Payers Date Payer Category Payer Unknown 2014 Unknown [id number] 1959 Self-pay [id number] 1959 Unknown [id number] 1954 Unknown [id number] 2.16.84 [id number] 1954 Unknown [id number] 2.16.84 [id number] 1954 Unknown [id number] 2.16.84 0.1.531102.3.579.2.59 1954 Unknown [id number] 2.16.84 [id number] 1954 Unknown [id number] 2.16.84 0.1.109280.3.579.2.593 1954 Unknown [id number] 2.16.84 0.1.368513.3.579.2.593 1954 Unknown [id number] 2.16.84 0.1.055692.3.579.2.593 1954 Unknown [id number] 2.16.84 0.1.301865.3.579.2.593 1954 Unknown [id number] 2.16.8 40.1.545460.3.579.2.727 1954 Unknown [id number] 2.16.8 40.1.998218.3.579.2.727 1954 Unknown [id number] 2.16.8 40.1.927016.3.579.2.727 1954 Unknown [id number] 2.16. 840.1.812208.3.579.2.196 1954 Unknown [id number] 2.16. [id number] 1954 Unknown [id number] 2.16. [id number] Progress note 07-08-2023 Note Date & Type Note Facility 07-08-2023 Note Cardiovascular [facility] SUBJECTIVE Chief Complaint Patient presents with Edema [...] Final Atrial Rate 06/29/2023 47 BPM Final RI Interval 06/29/2023 154 ms Final QRS DURATION 06/29/2023 82 ms Final QT Interval 06/29/2023 482 ms Final QTC CALCULATION(BAZETT) 06/29/2023 426 ms Final P [place] 06/29/2023 16 degrees Final R-[place] 06/29/2023 55 degrees Final T Wave [place] 06/29/2023 41 degrees Final No results found for: EXTCMP, BMPR1A, CBCDIF, BNP, BNP, LASAP, RED Testing/Procedures: No echocardiogram results found for the past 14 days No echocardiogram results found for the past 12 months Encounter Date: 06/29/23 ECG 12 lead Result Value Ventricular Rate 47 Atrial Rate 47 RI Interval 154 QR (more content not included)... [facility] Progress note 07-08-2023 Note Date & [...] All other systems reviewed and are negative. [facility] Progress note 06-29-2023 Note Date & [...] inhibitor Follow-up with Dr. Murillo in the [place] office in the next 2 to 4 weeks PROCEDURES: Ultrasound-guided access to the right common femoral artery, limited femoral angiography, ultrasound-guided access to the right common femoral vein, right heart catheterization, bilateral selective coronary angiography, placement of a 6 [employer] automotive generator repairer closure device METHODS: After risks, benefits, and [...] micropuncture kit was upsized to a 6 [place]ese 11 cm sheath. Angiography via the sheath [...] procedure. All catheters were removed. A 5 [employer] M[employer] closure device was deployed per protocol [...] device. INDICATIONS: Preoperative evaluation, coronary artery disease. [facility] Progress note 05-20-2023 Note Date & Type Note Facility 05-20-2023 Note [facility] Card[facility] Clinic Note Chief Complaint: New patient here to establish care. Ref from Dr. Archer for surgery clearance. He has hx of CAD and previously followed with [facility] back in 2015. He has [...] evaluated at the [facility] cardiothoracic surgery. It was elected to continue [...] LAD. This wo (more content not included)... [facility] Clinical Note 05-13-2023 Note Date & [...] 10 mg Tab (more content not included)... [facility] Comment on above: Result Comment: Elec [...] and content) DATE CREATED AUTHOR 11/21/2022 [facility] DATE CREATED AUTHOR AUTHOR'S ORGANIZ ATION 05/21/2023 [facility] DATE CREATED AUTHOR AUTHOR'S ORGANIZ ATION 07/10/2023 [facility] DATE CREATED AUTHOR AUTHOR'S ORGANIZ ATION 11/03/2023 [facility] FOR RECORDS PERTAINING TO PATIENTS WHO [...] BE BASED ON THE PRIMARY CLINICAL RECORDS. [employer] [facility]. provides no warranty or guarantee of the accuracy or completeness of information in this document.
--- NOTE | 2023-11-28 14:04 | CT_ITS ---
[address] [address] Patient Name: UMM TAI MRN: [id number] date: 1955 Sex: M Assigned Patient Location: ER Current Patient Location: ER Accession/Order Number: [id number] Exam Date: 11/28/2023 14:38 Report Date: 11/28/2023 15:04 At the request of: BENJAMIN BAÑUELOS Procedure: CT abdomen pelvis wo con EXAM: CT abdomen pelvis wo con INDICATION: sbo. COMPARISON: CT abdomen pelvis 04/20/2022. TECHNIQUE: Multiple contiguous axial CT images of the abdomen and pelvis were obtained without the use of intravenous contrast. Sagittal and coronal reconstructions were performed. Dose reduction techniques were achieved by using: automated exposure control and/or adjustment of mA and /or kV according to patient size and/or use of iterative reconstruction technique. FINDINGS: Evaluation of visceral organs limited by noncontrast technique. LOWER CHEST: No significant abnormality. ABDOMEN AND PELVIS: LIVER: Unremarkable. BILIARY SYSTEM: Normal gallbladder. No biliary ductal dilatation. PANCREAS: Unremarkable. SPLEEN: Unremarkable. ADRENAL GLANDS: Normal. URINARY SYSTEM: Unremarkable kidneys. No hydronephrosis or urolithiasis. Normal bladder. REPRODUCTIVE: Enlarged prostate gland. GASTROINTESTINAL TRACT: Normal caliber bowel. Long segment wall thickening and inflammation of the descending and sigmoid colon. Colonic diverticulosis without diverticulitis. The appendix is not identified. VESSELS: Nonaneurysmal abdominal aorta with mild atherosclerotic calcifications. LYMPH NODES: No adenopathy. PERITONEUM: No ascites or pneumoperitoneum. MUSCULOSKELETAL: SOFT TISSUES: Unremarkable soft tissues. BONES: No acute osseous abnormality or suspicious osseous lesion. SOLOMON: (series:image) CT/CT abdomen pelvis wo con IMPRESSION: 1. Colitis involving the descending and sigmoid colon, likely infectious or inflammatory. 2. Colonic diverticulosis without diverticulitis. 3. Prostatomegaly. Electronically authenticated by: XIOMARA LUBIN Date: 11/28/2023 15:04
--- NOTE | 2023-11-28 14:09 | ED_ITS ---
HPI - Anxiety General Chief Complaint: Abdominal Pain Stated Complaint: Abdominal Pain Time Seen by Provider: 11/28/23 14:03 Source: patient and family Mode of arrival: walk-in Limitations: no limitations History of Present Illness HPI narrative: The patient presenting to us with abdominal pain mostly in the left as well as the right lower half of the abdomen, the pain has been going on at least for a week after he recently was diagnosed with UTI, he finished almost 6 days of his course of antibiotic he did not take the last day today, he has not been having any burning when he go to the bathroom but he has been having constipation and nausea. Last bowel movement was this morning and it was after he received some [id number] medication for constipation. The patient denies any blood in the stool he also denies any intake of p.o. medication or fluids or food today, last intake was yesterday, Patient have history of appendectomy no history of small bowel obstruction Related Data Home Medications ?Medication ?Instructions ?Recorded ?Confirmed aspirin 325 mg tablet 325 mg PO DAILY 08/06/23 11/21/23 atorvastatin 40 mg tablet 40 mg PO DAILY 08/06/23 11/21/23 carvedilol 25 mg tablet 25 mg PO Q12H 08/06/23 11/21/23 furosemide 20 mg tablet 20 mg PO DAILY PRN edema 08/06/23 11/21/23 lansoprazole 15 mg delayed 15 mg PO Q12H 08/06/23 11/21/23 release,disintegrating tablet levothyroxine 50 mcg tablet 50 mcg PO QDAY 08/06/23 11/21/23 (Synthroid) nitroglycerin 0.4 mg sublingual 0.4 mg sublingual Q5M 08/06/23 11/21/23 tablet ranolazine 500 mg tablet,extended 500 mg PO Q12H 08/06/23 11/21/23 release,12 hr tizanidine 4 mg tablet 4 mg PO BEDTIME 08/06/23 11/21/23 zolpidem 10 mg tablet 10 mg PO QDAY 08/06/23 11/21/23 celecoxib 100 mg capsule 100 mg PO Q12H 08/31/23 11/21/23 Allergies Allergy/AdvReac Type Severity Reaction Status Date / Time Penicillins Allergy Verified 10/26/23 07:54 Review of Systems ROS Status of ROS 10 or more systems reviewed and unremark able except as noted in history and below [facility] Medical History (Updated 11/28/23 @ 16:28 by Viji Stanton MD) Hypothyroid ?E03.9 - Hypothyroidism, unspecified (ICD-10) Thrombosis ?I82.90 - Acute embolism and thrombosis of unspecified vein (ICD-10) History of angina ?Z86.79 - Personal history of other diseases of the circulatory system (ICD- 10) Hypertension ?I10 - Essential (primary) hypertension (ICD-10) Surgical History History of fusion of cervical spine ?Z98.1 - Arthrodesis status (ICD-10) History of appendectomy ?Z90.49 - Acquired absence of other specified parts of digestive tract (ICD- 10) Hx of tonsillectomy ?Z90.89 - Acquired absence of other organs (ICD-10) Exam Narrative Exam Narrative: Nurses notes and vital signs reviewed and patient is not hypoxic. General: Well-appearing and in no apparent distress. Skin: Warm, dry, no pallor noted. No rash. Head: Normocephalic, atraumatic. Neck: Supple, non-tender. Eye: Pupils are equal, round and EOMI. No scleral icterus. Ears, Nose, Mouth, and Throat: TM are clear, no nasal mucosal hypertrophy. Oral mucosa is moist, no posterior oropharynx erythema, uvula is mid-line Cardiovascular: Regular Rate and Rhythm without murmur, gallop or rub. Respiratory: No accessory muscle use or respiratory distress. Lungs are clear to auscultation, no wheezing, rales or rhonchi Chest Wall: no tenderness Back: No midline thoracic or lumbar vertebral tenderness. No CVA tenderness Musculoskeletal: normal ROM, no calf or popliteal tenderness, no lower extremity edema/swelling GI: There is tenderness on palpation of the lower abdomen, mild distention in the lower abdomen as well Neurological: A&O x4. No cranial nerve dysfunction observed. No truncal ataxia. Moves all extremities. Sensation intact. Psychiatric: Cooperative and interactive. Normal mood and affect. Constitutional Vital Signs, click to edit/add: Last Vital Signs Temp 98.2 F 11/28/23 13:52 Pulse 80 11/28/23 13:52 Resp 14 11/28/23 13:52 BP 170/87 H 04/13/24 13:52 Pulse Ox 98 11/28/23 13:52 O2 Del Method Room Air 11/28/23 13:52 Course Vital Signs Vital signs: Vital Signs Temperature 98.2 F 11/28/23 13:52 Pulse Rate 80 11/28/23 13:52 Respiratory Rate 14 11/28/23 13:52 Blood Pressure 170/87 H 11/28/23 13:52 Pulse Oximetry 98 11/28/23 13:52 Oxygen Delivery Method Room Air 11/28/23 13:52 Temperature 98.2 F 11/28/23 13:52 Pulse Rate 80 11/28/23 13:52 Respiratory Rate 14 11/28/23 13:52 Blood Pressure 170/87 H 11/28/23 13:52 Pulse Oximetry 98 11/28/23 13:52 Oxygen Delivery Method Room Air 11/28/23 13:52 MDM - Anxiety MDM Narrative Medical decision making narrative: The patient CBC shows leukocytosis Blood culture was obtained The patient chemistry shows elevated BUN CAT scan of the patient is showing colitis although there is no diverticulitis but the patient leukocytosis is concerning I spoke with Dr. Junior , and right now the patient leukocytosis as well as decreased p.o. intake and dehydration will require further hydration as well as IV antibiotic to make sure that the white blood cell will respond to treatment. Dr Junior agrees with above-mentioned plan Lab Data Labs: Lab Results 11/28/23 11/28/23 Range/Units 14:21 15:26 WBC 22.2 H (4.0-11.0) 10^3/uL RBC 4.11 L (4.70-6.10) 10^6/uL Hgb 13.0 L (14.0-18.0) g/dL Hct 41.1 L (42.0-54.0) % MCV 100.0 H (80.0-94.0) fL MCH 31.6 (25.9-34.0) pg MCHC 31.6 (29.9-35.2) g/dL RDW 14.0 (11.0-15.0) % Plt Count 236 (150-450) 10^3/uL MPV 8.7 L (9.5-13.5) fL Neut % (Auto) 87.8 H (43.0-75.0) % Lymph % (Auto) 4.8 L (20.5-60.0) % [place] % (Auto) 4.8 (1.7-12.0) % Eos % (Auto) 0.7 L (0.9-7.0) % Baso % (Auto) 0.6 (0.2-2.0) % Neut # (Auto) 19.5 H (1.4-6.5) 10^3/uL Lymph # (Auto) 1.1 L (1.2-3.8) 10^3/uL [place] # (Auto) 1.1 H (0.3-0.8) 10^3/uL Eos # (Auto) 0.2 (0.0-0.7) 10^3/uL Baso # (Auto) 0.1 (0.0-0.1) 10^3/uL Abs Immat Gran (auto) 0.30 H (0.00-0.03) 10^3/uL Imm/Tot Granulo (auto) 1.3 H (0.0-0.5) % Sodium 136 (136-145) mmol/L Potassium 4.9 (3.5-5.1) mmol/L Chloride 103 (98-107) mmol/L Carbon Dioxide 23.0 (21.0-32.0) mmol/L Anion Gap 14.9 BUN 19.0 H (7.0-18.0) mg/dL Creatinine 1.29 (0.70-1.30) mg/dL Est GFR ( Amer) >60 (>=60) Est GFR (Non-Af Amer) 55 L (>=60) BUN/Creatinine Ratio 14.7 Glucose 135 H (74-106) mg/dL Lactate 1.6 (0.4-2.0) mmol/L Calcium 9.5 (8.5-10.1) mg/dL Total Bilirubin 0.8 (0.2-1.0) mg/dL AST 28 (15-37) U/L ALT 34 (16-63) U/L Alkaline Phosphatase 120 H (46-116) U/L Total Protein 6.6 (6.4-8.2) g/dL Albumin 3.1 L (3.4-5.0) g/dL Globulin 3.5 g/dL Albumin/Globulin Ratio 0.9 Urine Color Yellow (YELLOW) Urine Clarity Clear (CLEAR) Urine pH 6.5 (5.0-9.0) Ur Specific [place] 1.020 (1.005-1.025) Urine Protein Trace (NEG/TRACE) mg/dL Urine Glucose (UA) Negative (NEGATIVE) mg/dL Urine Ketones 40 A (NEGATIVE) mg/dL Urine Occult Blood Negative (NEGATIVE) Urine Nitrite Negative (NEGATIVE) Urine Bilirubin Small A (NEGATIVE) Urine Urobilinogen 4.0 A (0.2-1.0) EU/dL Ur Leukocyte Esterase Trace A (NEGATIVE) Urine RBC None seen (0-2) #/HPF Urine WBC 0-2 A (NONE SEEN) #/HPF Ur Squamous Epith Cells None seen (NONE/RARE) #/LPF Urine Crystals None seen (None Seen) #/HPF Urine Bacteria None seen (NONE SEEN) #/HPF Urine Casts None seen (NONE SEEN) #/LPF Urine Mucus None seen (NONE SEEN) Discharge Plan Discharge Chief Complaint: Abdominal Pain Clinical Impression: Colitis, Dehydration Leukocytosis Qualifiers: Leukocytosis type: unspecified Qualified Code(s): D72.829 - Elevated white blood cell count, unspecified Patient Disposition: Admitted as Observation Time of Disposition Decision: 16:28
[2023-11-28 14:46] LABS: Basophils Absolute Auto 0.1 10^3/uL (0.0-0.1); Basophils Percent Auto 0.6 % (0.2-2.0); Eosinophils Absolute Auto 0.2 10^3/uL (0.0-0.7); Eosinophils Percent Auto 0.7 % (0.9-7.0); Hematocrit 41.1 % (42.0-54.0); Immature Granulocytes Pct Auto 1.3 % (0.0-0.5); Lymphocytes Absolute Auto 1.1 10^3/uL (1.2-3.8); Lymphocytes Percent Auto 4.8 % (20.5-60.0); Mean Corpuscular HGB Conc 31.6 g/dL (29.9-35.2); Mean Corpuscular Hemoglobin 31.6 pg (25.9-34.0); Mean Platelet Volume 8.7 fL (9.5-13.5); Monocytes Absolute Auto 1.1 10^3/uL (0.3-0.8); Monocytes Percent Auto 4.8 % (1.7-12.0); Neutrophils Absolute Auto 19.5 10^3/uL (1.4-6.5); Neutrophils Percent Auto 87.8 % (43.0-75.0); Platelet Count 236 10^3/uL (150-450); Red Blood Count 4.11 10^6/uL (4.70-6.10); White Blood Count 22.2 10^3/uL (4.0-11.0)
[2023-11-28 14:58] LABS: Alanine Aminotransferase 34 U/L (16-63); Albumin Globulin Ratio 0.9; Albumin Level 3.1 g/dL (3.4-5.0); Alkaline Phosphatase 120 U/L (46-116); Anion Gap 14.9; Aspartate Amino Transferase 28 U/L (15-37); BUN Creatinine Ratio 14.7; Bilirubin Total 0.8 mg/dL (0.2-1.0); Calcium 9.5 mg/dL (8.5-10.1); Chloride 103 mmol/L (98-107); Estimated GFR (African America >60 (>=60); Estimated GFR (Non-African Ame 55 (>=60); Globulin 3.5 g/dL; Glucose 135 mg/dL (74-106); Potassium 4.9 mmol/L (3.5-5.1); Sodium 136 mmol/L (136-145); Total Protein 6.6 g/dL (6.4-8.2)
[2023-11-28 15:29] LABS: Lactate/Lactic Acid 1.6 mmol/L (0.4-2.0)
[2023-11-28 15:41] LABS: Bilirubin Urine SMALL (NEGATIVE); Blood Urine NEGATIVE (NEGATIVE); Clarity Urine CLEAR (CLEAR); Color Urine YELLOW (YELLOW); Glucose Urine UA NEGATIVE (NEGATIVE); Ketones Urine 40 mg/dL (NEGATIVE); Leukocyte Esterase Urine TRACE (NEGATIVE); Nitrite Urine NEGATIVE (NEGATIVE); Protein Urine TRACE mg/dL (NEG/TRACE); pH Urine 6.5 (5.0-9.0)
[2023-11-28] MEDS: 0.9 % SODIUM CHLORIDE 1,000 ML 1000 ML IV (15:42)
[2023-11-28 16:03] LABS: Urine Microscopic Indicated YES
[2023-11-28 16:17] LABS: Bacteria Urine NONE SEEN #/HPF (NONE SEEN); Mucus Urine NONE SEEN (NONE SEEN); RBC Urine NONE SEEN #/HPF (0-2); WBC Urine 0-2 #/HPF (NONE SEEN)
[2023-11-28 16:18] LABS: Cast Seen? NONE SEEN #/LPF (NONE SEEN); Crystals Seen? None Seen #/HPF (None Seen); Squamous Epithelial Cell Urine NONE SEEN #/LPF (NONE/RARE)
[2023-11-28] MEDS: CIPROFLOXACIN IN 5 % DEXTROSE 400 MG/200 ML PIGGYBACK 200 MG IV (16:26)
--- OUTSIDE RECORDS SUMMARY | 2023-11-28 17:06 | XMS_ITS | CCD ---
Author Organization [facility] Care Team Providers Care Cap Parts Cutter Name Role Phone MADAIY ., DR HORNER [...] Penicillins; 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: [penicillins] Drug allergy (disorder) 10-25-[address] [facility] Repository (2 sources) HYDROcodone; 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: [HYDROcodone] Drug Allergy 10-25-2014 [facility] Repository (1 source) nabumetone; 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: [Relafen] Drug Allergy [facility] Repository (1 source) amLODIPine; 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: [AMLODIPINE] Drug Allergy 05-20-2023 [facility] Repository (1 source) nabumetone; 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: [NABUMETONE] Drug Allergy 10-25-2014 [facility] Repository Problems Active Problems Problem Classification Problem Date Documented Date Episodic/Chronic Coronary atherosclerosis and other heart disease (3 sources) Atherosclerotic heart disease of [place] coronary artery without angina pectoris; 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: [Unstable [...] source) jail (current) use of aspirin; 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: [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] Onset: 04-24-2022 Episodic [...] then as needed *Limit salt/sodium intake Normal [facility] Office Visiton 07-08-2023 Follow-up visit [id number] Chung Denton 1955 M Date Provider Department Elsa 07/08/2023 166-BLAYNE DAILY CARD [facility] Family History Problem Relation Age of Onset Heart attack Paternal Grandfather Family Status - Relation Status Age at Paternal Grandfather Level of Service:[address]59 [place] OFFICE/OUTPATIENT ESTABLISHED [facility] 30-39 MIN Reason for Visit and Comments: Edema [[id number]] Normal [facility] ANESon 06-29-2023 ANES -- Attestation signed by Eliane Murillo MD at 06/29/2023 9:56 AM Eliane Murillo MD, MPH, [facility], [facility], [facility] Interventional Cardiology Pager Email: [email or web address] Patient: Donnie Denton Procedure Information Date/Time: 06/29/23 1030 Procedures: Coronary angiography (Bilateral) - per Maria G in pre-cert at [facility], this has already been authorized thru Aug 2023 - right femoral approach Right heart cath Location: [facility] NUTRITION INTERNSHIP 3 / [facility] (Cath) Providers: Eliane Murlilo MD Clinical information reviewed: Allergies Meds Physical Exam Airway Mallampati: III Cardiovascular Rhythm: regular Rate: normal Dental Pulmonary Breath sounds clear to auscultation Abdominal Anesthesia Plan ASA 3 other (Moderate sedation) Anesthetic plan and risks discussed with patient. Use of blood products discussed with patient who consented to blood products. Plan discussed with fellow and attending. Additional Equipment Requests Normal [facility] HPon 06-29-2023 HP -- Attestation signed by Eliane Murillo MD at 06/29/2023 9:57 AM Eliane Murillo MD, MPH, [facility], [facility], [facility] Interventional Cardiology Pager Email: [email or web address] History Of Present Illness Donnie Denton [...] He was evaluated by cardiothoracic surgery at [facility] and elected to pursue medical management [...] treated since 2014. Meaghan Mukherjee DO, MPH Collar Starcher [facility] Nabila 06-29-2023 KIERA RN educated pt on d/ c instructions. RN encouraged pt to voice any questions or concerns. Pt verbalizes no questions or concerns at this time. [facility] Orders Onlyon 06-17-2023 Orders Only [id number] Chung Denton 1955 Date Provider Department Center 06/17/2023 Avi-DEIRDRE RIDLEY CARD [facility] Family History Problem Relation Age of Onset Heart attack Paternal Grandfather Family Status - Relation Status Age at Paternal Grandfather Normal [facility] Letter (Out)on 05-26-2023 Letter (Out) [id number] Chung Denton R 1955 Provider Department Center 05/26/2023 None-None [facility] AUTH CO Medical C Family History Problem Relation Age of Onset Heart attack Paternal Grandfather Family Status - Relation Status Age at Paternal Grandfather Normal [facility] Office Visiton 05-20-2023 Follow-up visit [id number] Chung Denton R 1955 [facility] Provider Department Center 05/20/2023 271-ELIANE MURILLO Hos Family History Problem Relation Age of Onset Heart attack Paternal Grandfather Family Status - Relation Status Age at Paternal Grandfather Level of Service:[id number] [place] OFFICE/OUTPATIENT [facility] 60-74 MINUTES Normal [facility] Orders Onlyon 05-20-2023 Orders Only [id number] Chung Denton R 1955 [facility] Provider Department Center 05/20/2023 Walker-HIMANSHU MCMILLAN VALERIANO [facility] Family History Problem Relation Age of Onset Heart attack Paternal Grandfather Family Status - Relation Status Age at Paternal Grandfather Normal [facility] Facesheeton 05-14-2023 Facesheet [id number] D:127 Normal [facility] Ambulatory Visit [...] [facility] Physician Referralon 023 Physician Referral [id number] CD:127 Normal [facility] XR HIP [...] ANTONI PENALOZA Date: 2022-11-13 22:38 Normal [facility] XR LSPINE MIN 4 VIEWSon 10-17 XR [...] paraspinous abnormality is seen. OTHER: Negative. IMPRESSION: [id number] degenerative changes Electronically authenticated by: ANTONI TRACEY Date: 2022-11-14 07:58 Normal [facility] CREATININEon 11-11-2022 Creatinine [Mass/Vol] 1.04 mg/dL Normal 0.70-1.30 [facility] Comment on above: Performed By: #### C ASIF #### [facility] Laboratory [address] [address] [address] Gianni Deluna EGFR-AF ALGERIAN >60 Normal >=[address] [facility] Comment on above: Performed By: #### C ASIF #### [facility] [address] [address] [address] Gianni Deluna EGFR-NON AF ALGERIAN >60 Normal >=[address] [facility] Comment on above: Performed By: #### C ASIF #### [facility] [address] [place] [address] CHEST W CONon [...] by: PA CROW Date: 2022-11-11 11:[address] [facility] [place] WO CONon 08-14-20 22 MRI [facility] CON EXAMINATION: [facility] [place] [facility] WO CON HISTORY: Cervical radiculopathy COMPARISON: No [...] ANTONI TRACEY Date: 2022-08-14 09:19 Normal [facility] INSULINon 06-04-2022 Insulin 13.5 uIU/mL Normal 2.6-24.9 [facility] Comment on above: Performed By: #### L ACT #### [facility] [address] [place] [address] Dr. Gianni Deluna CBC AUTO DIFFon 06-03-2022 BASO # 0.1 103/ul Normal 0.0-0.[address] [facility] Comment on above: Performed By: #### L ACT #### [facility] [address] [place] [address] Dr. Gianni Deluna Basophils/100 WBC (Bld) 1.2 % Normal 0.2-2.[address] [facility] Comment on above: Performed By: #### L ACT #### [facility] [address] [place] [address] Dr. Gianni Deluna EO # 0.4 103/ul Normal 0.0-0.[address] [facility] Comment on above: Performed By: #### L ACT #### [facility] [address] [place] [address] Dr. Gianni Deluna Eosinophils/100 WBC (Bld) 5.9 % Normal 0.9-7.0 [facility] Comment on above: Performed By: #### L ACT #### [facility] [address] [place] [address] Dr. Gianni Deluna Erythrocyte distribution width (RBC) [Ratio] 13.4 % Normal 11.0-15.[address] [facility] Comment on above: Performed By: #### L ACT #### [facility] [address] [place] [address] Dr. Gianni Deluna Hematocrit (Bld) [Volume fraction] 39.6 % Critically low 42.0-54.[address] [facility] Comment on above: Performed By: #### L ACT #### [facility] [address] [place] [address] Dr. Gianni Deluna Hemoglobin (Bld) [Mass/Vol] 12.8 g/dL Critically low 14.0-18.0 [facility] Comment on above: Performed By: #### L ACT #### [facility] [address] [place] [address] Dr. Gianni Deluna IG # 0.04 10e3/ul Critically high 0.00-0.03 [facility] Comment on above: Performed By: #### L ACT #### [facility] [address] [place] [address] Dr. Gianni Deluna IG % 0.7 % Critically high 0.0-0.5 [facility] Comment on above: Performed By: #### L ACT #### [facility] [address] [place] [address] Dr. Gianni Deluna LYMPH # 1.9 103/ul Normal 1.2-3.8 [facility] Comment on above: Performed By: #### L ACT #### [facility] [address] [place] [address] Dr. Gianni Deluna Lymphocytes/100 WBC (Bld) 31.7 % Normal 20.5-60.0 [facility] Comment on above: Performed By: #### L ACT #### [facility] [address] [place] [address] Dr. Gianni Deluna MANUAL DIFF REQ NO Normal [facility] Comment on above: Performed By: #### L ACT #### [facility] [address] [place] [address] Dr. Gianni Deluna MCH (RBC) [Entitic mass] 30.2 pg Normal 25.9-34.[address] [facility] Comment on above: Performed By: #### L ACT #### [facility] [address] [place] [address] Dr. Gianni Deluna MCHC (RBC) [Mass/Vol] 32.3 g/dL Normal 29.9-35.[address] [facility] Comment on above: Performed By: #### L ACT #### [facility] [address] [address] [address] Gianni Deluna MCV (RBC) [Entitic vol] 93.4 fL Normal 80.0-94.[address] [facility] Comment on above: Performed By: #### L ACT #### [facility] [address] [address] [address] Gianni Deluna MONO # 0.7 103/ul Normal 0.3-0.[address] [facility] Comment on above: Performed By: #### L ACT #### [facility] [address] [address] [address] Gianni Deluna Monocytes/100 WBC (Bld) 11.9 % Normal 1.7-12.[address] [facility] Comment on above: Performed By: #### L ACT #### [facility] [address] [address] [address] Gianni Deluna NEUT # 2.9 103/ul Normal 1.4-6.[address] [facility] Comment on above: Performed By: #### L ACT #### [facility] [address] [address] [address] Gianni Deluna Neutrophils/100 WBC (Bld) 48.6 % Normal 43.0-75.[address] [facility] Comment on above: Performed By: #### L ACT #### [facility] [address] [address] [address] Gianni Deluna Platelet mean volume (Bld) [Entitic vol] 9.1 fL Critically low 9.5-13.[address] [facility] Comment on above: Performed By: #### L ACT #### [facility] [address] [place] [address] Dr. Gianni Deluna PLT 168 103/ul Normal 150-450 [facility] Comment on above: Performed By: #### L ACT #### [facility] [address] [address] [address] Gianni Deluna RBC 4.24 106/ul Critically low 4.70-6.10 [facility] Comment on above: Performed By: #### L ACT #### [facility] [address] [place] [address] Dr. Gianni Deluna WBC 6.0 103/ul Normal 4.0-11.[address] [facility] Comment on above: Performed By: #### L ACT #### [facility] [address] [address] [address] Gianni Deluna FREE THYROXINE INDEX T7on FTI 1.91 Normal 1.30-4.[address] [facility] Comment on above: Performed By: #### L ACT #### [facility] [address] [place] [address] Dr. Gianni Deluna T3U 36.0 % Normal 33.0-40.[address] [facility] Comment on above: Performed By: #### L ACT #### [facility] [address] [place] [address] Dr. Gianni Deluna T4 [Mass/Vol] 5.30 ug/dL Normal 4.50-12.10 [facility] Comment on above: Performed By: #### L ACT #### [facility] [address] [place] [address] Dr. Gianni Deluna GLYCOHEMOGLOBIN A1Con 2021 ADA RECOMMENDATION SEE BELOW Normal [facility] Comment on above: Result Comment: ADA RECOMMENDED LIMIT 4.0 - 6.0 ADA THERAPEUTIC TARGET < 7.0 ACTION SUGGESTED > 7.0 Performed By: #### D DIM #### [facility] [address] [place] [address] Dr. Gianni Deluna Glucose [Mass/Vol] 140 mg/dL Normal [facility] Comment on above: Performed By: #### D DIM #### [facility] [address] [place] [address] Dr. Gianni Deluna HbA1c (Bld) [Mass fraction] 6.5 % Critically high 4.5-6.[address] [facility] Comment on above: Performed By: #### D DIM #### [facility] [address] [place] [address] Dr. Gianni Deluna LIPID PROFILEon 06-03-2022 CHOL-HDL RATIO NORM SEE BELOW Normal [facility] Comment on above: Result Comment: 3.3 - 4.4 LOW RISK 4.4 - 7.1 AVERAGE RISK 7.1 - 11.0 MODERATE RISK >11.0 HIGH RISK Performed By: #### T SH, T7, URIC, CMP, LIPID #### [facility] [address] [address] [address] Gianni Deluna Cholesterol [Mass/Vol] 104 mg/dL Normal <=[address] [facility] Comment on above: Performed By: #### T SH, T7, URIC, CMP, LIPID #### [facility] [address] [address] [address] Gianni Deluna Cholesterol in HDL [Mass/Vol] 49 mg/dL Normal 40-[address] [facility] Comment on above: Performed By: #### T SH, T7, URIC, CMP, LIPID #### [facility] [address] [address] [address] Gianni Deluna Cholesterol in LDL [Mass/Vol] 46.6 mg/dL Normal [facility] Comment on above: Performed By: #### T SH, T7, URIC, CMP, LIPID #### [facility] [address] [address] [address] Gianni Deluna Cholesterol.total/Ch olesterol in HDL [Mass ratio] 2.1 {ratio} Normal [facility] Comment on above: Performed By: #### T SH, T7, URIC, CMP, LIPID #### [facility] [address] [address] [address] Gianni Deluna HDL NORMAL > or = 60 mg/dl - LO W CARDIOVASCULAR RISK <40 mg/dl - HIGH CARDIOVASCULAR RISK Normal [facility] Comment on above: Performed By: #### T SH, T7, URIC, CMP, LIPID #### [facility] [address] [place] [address] Dr. Gianni Deluna LDL CALC NORMAL SEE BELOW Normal [facility] Comment on above: Result Comment: <100 mg/dl OPTIMAL 100 - 129 mg/dl NEAR OR ABOVE OPTIMAL 130 - 159 mg/dl BORDERLINE HIGH 160 - 189 mg/dl HIGH >190 mg/dl VERY HIGH Performed By: #### T SH, T7, URIC, CMP, LIPID #### [facility] [address] [address] [address] Gianni Deluna Triglyceride [Mass/Vol] 42 mg/dL Normal <=[address] [facility] Comment on above: Performed By: #### T SH, T7, URIC, CMP, LIPID #### [facility] [address] [address] [address] Gianni Deluna VLDL CALC 8.4 mg/dL Normal [facility] Comment on above: Performed By: #### T SH, T7, URIC, CMP, LIPID #### [facility] [address] [place] [address] Dr. Gianni Deluna PROF 14(COMP METB)on 022 Albumin [Mass/Vol] 2.9 g/dL Critically low 3.4-5.0 [facility] Comment on above: Performed By: #### T SH, T7, URIC, CMP, LIPID #### [facility] [address] [place] [address] Dr. Gianni Deluna Albumin/Globulin [Mass ratio] 0.8 {ratio} Normal [facility] Comment on above: Performed By: #### T SH, T7, URIC, CMP, LIPID #### [facility] [address] [place] [address] Dr. Gianni Deluna ALP [Catalytic activity/Vol] 127 U/L Critically high 46-[address] [facility] Comment on above: Performed By: #### T SH, T7, URIC, CMP, LIPID #### [facility] [address] [place] [address] Dr. Gianni Deluna ALT [Catalytic activity/Vol] 23 U/L Normal 16-[address] [facility] Comment on above: Performed By: #### T SH, T7, URIC, CMP, LIPID #### [facility] [address] [place] [address] Dr. Gianni Deluna Anion gap [Moles/Vol] 8.4 mmol/L Normal [facility] Comment on above: Performed By: #### T SH, T7, URIC, CMP, LIPID #### [facility] [address] [place] [address] Dr. Gianni Deluna AST [Catalytic activity/Vol] 21 U/L Normal 15-[address] [facility] Comment on above: Performed By: #### T SH, T7, URIC, CMP, LIPID #### [facility] [address] [place] [address] Dr. Gianni Deluna Bilirubin [Mass/Vol] 0.5 mg/dL Normal 0.2-1.[address] [facility] Comment on above: Performed By: #### T SH, T7, URIC, CMP, LIPID #### [facility] [address] [place] [address] Dr. Gianni Deluna Calcium [Mass/Vol] 8.3 mg/dL Critically low 8.5-10.1 Th e [facility] Comment on above: Performed By: #### T SH, T7, URIC, CMP, LIPID #### [facility] [address] [place] [address] Dr. Gianni Deluna Chloride [Moles/Vol] 107 mmol/L Normal 98-107 [facility] Comment on above: Performed By: #### T SH, T7, URIC, CMP, LIPID #### [facility] [address] [place] [address] Dr. Gianni Deluna CO2 [Moles/Vol] 30.6 mmol/L Normal 21.0-32.[address] [facility] Comment on above: Performed By: #### T SH, T7, URIC, CMP, LIPID #### [facility] [address] [place] [address] Dr. Gianni Deluna Creatinine [Mass/Vol] 0.93 mg/dL Normal 0.70-1.[address] [facility] Comment on above: Performed By: #### T SH, T7, URIC, CMP, LIPID #### [facility] [address] [place] [address] Dr. Gianni Deluna EGFR-AF ALGERIAN >60 Normal >=[address] [facility] Comment on above: Performed By: #### T SH, T7, URIC, CMP, LIPID #### [facility] [address] [address] [address] Gianni Deluna EGFR-NON AF ALGERIAN >60 Normal >=[address] [facility] Comment on above: Performed By: #### T SH, T7, URIC, CMP, LIPID #### [facility] [address] [address] [address] Gianni Deluna Globulin (S) [Mass/Vol] 3.5 g/dL Normal [facility] Comment on above: Performed By: #### T SH, T7, URIC, CMP, LIPID #### [facility] [address] [place] [address] Dr. Gianni Deluna Glucose [Mass/Vol] 114 mg/dL Critically high 74-106 [facility] Comment on above: Performed By: #### T SH, T7, URIC, CMP, LIPID #### [facility] [address] [place] [address] Dr. Gianni Deluna Potassium [Moles/Vol] 4.0 mmol/L Normal 3.5-5.[address] [facility] Comment on above: Performed By: #### T SH, T7, URIC, CMP, LIPID #### [facility] [address] [place] [address] Dr. Gianni Deluna Protein [Mass/Vol] 6.4 g/dL Normal 6.4-8.2 [facility] Comment on above: Performed By: #### T SH, T7, URIC, CMP, LIPID #### [facility] [address] [address] [address] Gianni Deluna Sodium [Moles/Vol] 142 mmol/L Normal 136-145 [facility] Comment on above: Performed By: #### T SH, T7, URIC, CMP, LIPID #### [facility] [address] [address] [address] Gianni Deluna Urea nitrogen [Mass/Vol] 11.0 mg/dL Normal 7.0-18.[address] [facility] Comment on above: Performed By: #### T SH, T7, URIC, CMP, LIPID #### [facility] [address] [place] [address] Dr. Gianni Deluna Urea nitrogen/Creatinine [Mass ratio] 11.8 mg/mg Normal [facility] Comment on above: Performed By: #### T SH, T7, URIC, CMP, LIPID #### [facility] [address] [place] [address] Dr. Gianni Deluna TSHon 06-03-2022 TSH 0.814 uIU/mL Normal 0.358-3.740 [facility] Comment on above: Performed By: #### L ACT #### [facility] [address] [place] [address] Dr. Gianni Deluna URIC ACID SERUMon 06-03-2022 Urate [Mass/Vol] 5.2 mg/dL Normal 3.5-7.[address] [facility] Comment on above: Performed By: #### T SH, T7, URIC, CMP, LIPID #### [facility] [address] [place] [address] Dr. Gianni Deluna CARDIAC ALEX 3-6on 2 CK [Catalytic activity/Vol] 82 U/L Normal 39-[address] [facility] Comment on above: Performed By: #### L ACT #### [facility] [address] [place] [address] Dr. Gianni Deluna CK.MB [Mass/Vol] 2.40 ng/mL Normal <=3.[address] [facility] Comment on above: Performed By: #### L ACT #### [facility] [address] [place] [address] Dr. Gianni Deluna HSTROP 8.6 pg/mL Normal 4.0-76.1 [facility] Comment on above: Result Comment: CUT- OFF POINTS HAVE BEEN ESTABLISHED BASED ON THE FOURTH UNIVERSAL DEFINITIONS OF MYOCARDIAL INFARCTION. THE UPPER REFERENCE LIMIT (URL) OF TROPONIN, DEFINED THE 99TH PERCENTILE OF cTnI DISTRIBUTION IN A REFERENCE POPULATION, HAS BEEN CONFIRMED THE DECISION THRESHOLD FOR [place] DIAGNOSIS. Performed By: #### L ACT #### [facility] [address] [place] [address] ABD/PELV W CONon [...] by: JAIMIE COOPER Date: 2022-04-21 00:[address] [facility] LACTATE/LACTIC ACIDon 2021 Lactate [Moles/Vol] 2.2 mmol/L Critically high 0.4-1.[address] [facility] Comment on above: Performed By: #### L ACT #### [facility] [address] [address] [address] iGanni Deluna AMYLASEon 04-20-2022 Amylase [Catalytic activity/Vol] 139 U/L Critically high 25-[address] [facility] Comment on above: Performed By: #### L ACT #### [facility] [address] [address] [address] Gianni Deluna CARDIAC ALEX ADMITon 022 CK [Catalytic activity/Vol] 88 U/L Normal 39-[address] [facility] Comment on above: Performed By: #### C MADM #### [facility] [address] [address] [address] Gianni Deluna CK.MB [Mass/Vol] 1.82 ng/mL Normal <=3.[address] [facility] Comment on above: Performed By: #### C MADM #### [facility] [address] [place] [address] Dr. Gianni Deluna HSTROP 7.2 pg/mL Normal 4.0-76.1 [facility] Comment on above: Result Comment: CUT- OFF POINTS HAVE BEEN ESTABLISHED BASED ON THE FOURTH UNIVERSAL DEFINITIONS OF MYOCARDIAL INFARCTION. THE UPPER REFERENCE LIMIT (URL) OF TROPONIN, DEFINED THE 99TH PERCENTILE OF cTnI DISTRIBUTION IN A REFERENCE POPULATION, HAS BEEN CONFIRMED THE DECISION THRESHOLD FOR [place] DIAGNOSIS. Performed By: #### C MADM #### [facility] [address] [place] [address] Dr. Gianni Deluna FILIBERTO 93 ng/mL Normal 16-96 [facility] Comment on above: Performed By: #### C MADM #### [facility] [address] [place] [address] Dr. Gianni Deluna CBC AUTO DIFFon 04-20-2022 BASO # 0.0 103/ul Normal 0.0-0.[address] [facility] Comment on above: Performed By: #### C BC #### [facility] [address] [place] [address] Dr. Gianni Deluna Basophils/100 WBC (Bld) 0.3 % Normal 0.2-2.0 [facility] Comment on above: Performed By: #### C BC #### [facility] [address] [place] [address] Dr. Gianni Deluna EO # 0.0 103/ul Normal 0.0-0.7 [facility] Comment on above: Performed By: #### C BC #### [facility] [address] [place] [address] Dr. Gianni Deluna Eosinophils/100 WBC (Bld) 0.1 % Critically low 0.9-7.0 [facility] Comment on above: Performed By: #### C BC #### [facility] [address] [place] [address] Dr. Gianni Deluna Erythrocyte distribution width (RBC) [Ratio] 13.5 % Normal 11.0-15.0 [facility] Comment on above: Performed By: #### C BC #### [facility] [address] [address] [address] Gianni Deluna Hematocrit (Bld) [Volume fraction] 45.8 % Normal 42.0-54.[address] [facility] Comment on above: Performed By: #### C BC #### [facility] [address] [address] [address] Gianni Deluna Hemoglobin (Bld) [Mass/Vol] 15.3 g/dL Normal 14.0-18.[address] [facility] Comment on above: Performed By: #### C BC #### [facility] [address] [address] [address] Gianni Deluna IG # 0.05 10e3/ul Critically high 0.00-0.03 [facility] Comment on above: Performed By: #### C BC #### [facility] [address] [place] [address] Dr. Gianni Deluna IG % 0.5 % Normal 0.0-0.[address] [facility] Comment on above: Performed By: #### C BC #### [facility] [address] [address] [address] Gianni Deluna LYMPH # 0.8 103/ul Critically low 1.2-3.8 [facility] Comment on above: Performed By: #### C BC #### [facility] [address] [place] [address] Dr. Gianni Deluna Lymphocytes/100 WBC (Bld) 7.7 % Critically low 20.5-60.[address] [facility] Comment on above: Performed By: #### C BC #### [facility] [address] [place] [address] Dr. Gianni Deluna MANUAL DIFF REQ NO Normal [facility] Comment on above: Performed By: #### C BC #### [facility] [address] [place] [address] Dr. Gianni Deluna MCH (RBC) [Entitic mass] 30.4 pg Normal 25.9-34.[address] [facility] Comment on above: Performed By: #### C BC #### [facility] [address] [place] [address] Dr. Gianni Deluna MCHC (RBC) [Mass/Vol] 33.4 g/dL Normal 29.9-35.2 [facility] Comment on above: Performed By: #### C BC #### [facility] [address] [address] [address] Gianni Deluna MCV (RBC) [Entitic vol] 90.9 fL Normal 80.0-94.0 [facility] Comment on above: Performed By: #### C BC #### [facility] [address] [address] [address] Gianni Deluna MONO # 0.4 103/ul Normal 0.3-0.8 [facility] Comment on above: Performed By: #### C BC #### [facility] [address] [address] [address] Gianni Deluna Monocytes/100 WBC (Bld) 3.3 % Normal 1.7-12.0 [facility] Comment on above: Performed By: #### C BC #### [facility] [address] [address] [address] Gianni Deluna NEUT # 9.7 103/ul Critically high 1.4-6.5 [facility] Comment on above: Performed By: #### C BC #### [facility] [address] [address] [address] Gianni Deluna Neutrophils/100 WBC (Bld) 88.1 % Critically high 43.0-75.0 [facility] Comment on above: Performed By: #### C BC #### [facility] [address] [address] [address] Gianni Deluna Platelet mean volume (Bld) [Entitic vol] 8.9 fL Critically low 9.5-13.5 [facility] Comment on above: Performed By: #### C BC #### [facility] [address] [address] [address] Gianni Deluna PLT 198 103/ul Normal 150-450 [facility] Comment on above: Performed By: #### C BC #### [facility] [address] [address] [address] Gianni Deluna RBC 5.04 106/ul Normal 4.70-6.10 [facility] Comment on above: Performed By: #### C BC #### [facility] [address] [place] [address] Dr. Gianni Deluna WBC 11.0 103/ul Normal 4.0-11.[address] [facility] Comment on above: Performed By: #### C BC #### [facility] [address] [place] [address] Dr. Gianni Deluna Covid-19 PCR (CVDTB)on SARS-CoV-2 (COVID-19) RNA NICHOLE+probe Ql (Unsp spec) Not detected Normal NOT DETECTED [facility] Comment on above: Result Comment: When diagnostic [...] for this test is supported by the [place] [employer] and [employer]'s declaration that [...] used). Performed By: #### C VDTBH #### [facility] [address] [place] [address] Dr. Gianni Deluna D-DIMERon 04-20-2022 D-DIMER 0.37 mg/L FEU Normal <=0.59 [facility] Comment on above: Performed By: #### D DIM #### [facility] [address] [place] [address] Dr. Gianni Deluna D-DIMER COMMENTS SEE BELOW Normal [facility] Comment on above: Result Comment: Incr [...] hospitalization. Performed By: #### D DIM #### [facility] [address] [place] [address] Dr. Gianni Deluna LACTATE/LACTIC ACIDon 2021 Lactate [Moles/Vol] 2.3 mmol/L Critically high 0.4-1.[address] [facility] Comment on above: Performed By: #### L ACT #### [facility] [address] [place] [address] Dr. Gianni Deluna LIPASEon 04-20-2022 Lipase [Catalytic activity/Vol] 48.0 U/L Critically low 73.0-393.[address] [facility] Comment on above: Performed By: #### L ACT #### [facility] [address] [place] [address] Dr. Gianni Deluna PROF 14(COMP METB)on 022 Albumin [Mass/Vol] 3.9 g/dL Normal 3.4-5.0 [facility] Comment on above: Performed By: #### L ACT #### [facility] [address] [place] [address] Dr. Gianni Deluna Albumin/Globulin [Mass ratio] 1.0 {ratio} Normal [facility] Comment on above: Performed By: #### L ACT #### [facility] [address] [place] [address] Dr. Gianni Deluna ALP [Catalytic activity/Vol] 127 U/L Critically high 46-[address] [facility] Comment on above: Performed By: #### L ACT #### [facility] [address] [place] [address] Dr. Gianni Deluna ALT [Catalytic activity/Vol] 27 U/L Normal 16-[address] [facility] Comment on above: Performed By: #### L ACT #### [facility] [address] [address] [address] Gianni Deluna Anion gap [Moles/Vol] 15.9 mmol/L Normal [facility] Comment on above: Performed By: #### L ACT #### [facility] [address] [address] [address] Gianni Deluna AST [Catalytic activity/Vol] 27 U/L Normal 15-[address] [facility] Comment on above: Performed By: #### L ACT #### [facility] [address] [address] [address] Gianni Deluna Bilirubin [Mass/Vol] 0.9 mg/dL Normal 0.2-1.[address] [facility] Comment on above: Performed By: #### L ACT #### [facility] [address] [address] [address] Gianni Deluna Calcium [Mass/Vol] 8.9 mg/dL Normal 8.5-10.1 [facility] Comment on above: Performed By: #### L ACT #### [facility] [address] [address] [address] Gianni Deluna Chloride [Moles/Vol] 103 mmol/L Normal 98-[address] [facility] Comment on above: Performed By: #### L ACT #### [facility] [address] [address] [address] Gianni Deluna CO2 [Moles/Vol] 24.2 mmol/L Normal 21.0-32.[address] [facility] Comment on above: Performed By: #### L ACT #### [facility] [address] [address] [address] Gianni Deluna Creatinine [Mass/Vol] 1.27 mg/dL Normal 0.70-1.[address] [facility] Comment on above: Performed By: #### L ACT #### [facility] [address] [address] [address] Gianni Deluna EGFR-AF ALGERIAN >60 Normal >=[address] [facility] Comment on above: Performed By: #### L ACT #### [facility] [address] [address] [address] Gianni Deluna EGFR-NON AF ALGERIAN 56 mL/min/1.73m2 Critically low >=[address] [facility] Comment on above: Performed By: #### L ACT #### [facility] [address] [place] [address] Dr. Gianni Deluna Globulin (S) [Mass/Vol] 3.9 g/dL Normal [facility] Comment on above: Performed By: #### L ACT #### [facility] [address] [address] [address] Gianni Deluna Glucose [Mass/Vol] 145 mg/dL Critically high 74-106 [facility] Comment on above: Performed By: #### L ACT #### [facility] [address] [place] [address] Dr. Gianni Deluna Potassium [Moles/Vol] 4.1 mmol/L Normal 3.5-5.[address] [facility] Comment on above: Performed By: #### L ACT #### [facility] [address] [place] [address] Dr. Gianni Deluna Protein [Mass/Vol] 7.8 g/dL Normal 6.4-8.2 [facility] Comment on above: Performed By: #### L ACT #### [facility] [address] [place] [address] Dr. Gianni Deluna Sodium [Moles/Vol] 139 mmol/L Normal 136-145 [facility] Comment on above: Performed By: #### L ACT #### [facility] [address] [place] [address] Dr. Gianni Deluna Urea nitrogen [Mass/Vol] 22.0 mg/dL Critically high 7.0-18.[address] [facility] Comment on above: Performed By: #### L ACT #### [facility] [address] [place] [address] Dr. Gianni Deluna Urea nitrogen/Creatinine [Mass ratio] 17.3 mg/mg Normal [facility] Comment on above: Performed By: #### L ACT #### [facility] [address] [place] [address] Dr. Gianni Deluna XR ABD FLAT UP_PA [...] large and small bowel. Electronically authenticated by: JIAMIE COOPER Date: 2022-04-20 21:[address] [facility] US RICHELLE DOP LEG LTon 03-18-20 [...] LAWANDA VEE Date: 2022-03-18 13:25 Normal [facility] US RICHELLE DOP LEG LTon 12-08-19 [place] [...] by: ANTONI JOLLEY Date: 2021-12-06 22:[address] [facility] Encounters Encounter Date Encounter Type Care Provider Facility Start: 10-26-2023 End: 10-27-2023 ambulatory Stefany Ballard MD Facility:[facility] Start: 09-21-2023 End: 09-22-2023 ambulatory Stefany Ballard MD Facility:[facility] Start: 08-31-2023 End: 09-01-2023 ambulatory Stefany Ballard MD Facility:[facility] Start: 07-17-2023 ambulatory Evens Archer MD Facility:[facility] Start: 07-08-2023 End: 07-08-2023 ambulatory [facility] Start: 06-29-2023 End: 06-29-2023 ambulatory [facility] Start: 06-29-2023 End: 06-29-2023 Encounter for other preprocedural examination [facility] Start: 06-17-2023 Encounter for other preprocedural examination [facility] Start: 05-20-2023 End: 05-20-2023 ambulatory [facility] Start: 05-13-2023 End: 05-14-2023 ambulatory Pramod HAYWARD Facility:[facility] Start: 05-08-2023 ambulatory Pramod HAYWARD [facility] Start: 04-29-2023 ambulatory Pramod HAYWARD Facility[facility] Start: 11-13-2022 End: 11-14-[address] EEVNS ARCHER . Facility:[facility] Start: 11-11-2022 End: 11-12-2022 [...] Comment on above: Performed By: #### P [facility] #### [facility] [address] [place] [address] Dr. Gianni Deluna Payers Date Payer Category Payer Unknown 2014 Unknown [id number] Self-pay [id number] 1959 Unknown [id number] 1954 Unknown [id number] 2.16.84 [id number] 1954 Unknown [id number] 2.16.84 [id number] 1954 Unknown [id number] 2.16.84 [id number] 1954 Unknown [id number] 2.16.84 [id number] 1954 Unknown [id number] 2.16.84 [id number] 1954 Unknown [id number] 2.16.84 [id number] 1954 Unknown [id number] 2.16.84 [id number] 1954 Unknown [id number] 2.16.84 [id number] 1954 Unknown [id number] 2.16.8 [id number] 1954 Unknown [id number] 2.16.8 [id number] 1954 Unknown [id number] 2.16.8 [id number] 1954 Unknown [id number] 2.16. [id number] 1954 Unknown [id number] 2.16. [id number] 1954 Unknown [id number] 2.16. [id number] Progress note 07-08-2023 Note Date & Type Note Facility 07-08-2023 Note [facility] SUBJECTIVE Chief Complaint Patient presents with Edema [...] Final Atrial Rate 06/29/2023 47 BPM Final IL Interval 06/29/2023 154 ms Final QRS DURATION 06/29/2023 82 ms Final QT Interval 06/29/2023 482 ms Final QTC CALCULATION(BAZETT) 06/29/2023 426 ms Final P [facility] 06/29/2023 16 degrees Final R-[facility] 06/29/2023 55 degrees Final T Wave [facility] 06/29/2023 41 degrees Final No results found for: EXTCMP, BMPR1A, CBCDIF, BNP, BNP, LASAP, RED Testing/Procedures: No echocardiogram results found for the past 14 days No echocardiogram results found for the past 12 months Encounter Date: 06/29/23 ECG 12 lead Result Value Ventricular Rate 47 Atrial Rate 47 [place] Interval 154 QR (more content not included)... [facility] Progress note 07-08-2023 Note Date & Type [...] All other systems reviewed and are negative. [facility] Progress note 06-29-2023 Note Date & Type [...] inhibitor Follow-up with Dr. Murillo in the [place] office in the next 2 to 4 weeks PROCEDURES: Ultrasound-guided access to the right common femoral artery, limited femoral angiography, ultrasound-guided access to the right common femoral vein, right heart catheterization, bilateral selective coronary angiography, placement of a 6 [place] [employer] communicable disease specialist closure device METHODS: After risks, benefits, and [...] micropuncture kit was upsized to a 6 [place] 11 cm sheath. Angiography via the sheath [...] procedure. All catheters were removed. A 5 [place] Myn[employer] closure device was deployed per protocol [...] device. INDICATIONS: Preoperative evaluation, coronary artery disease. [facility] Progress note 05-20-2023 Note Date & Type Note Facility 05-20-2023 Note [facility] Card[facility] Clinic Note Chief Complaint: New patient here to establish care. Ref from Dr. Archer for surgery clearance. He has hx of CAD and previously followed with [facility] back in 2015. He has upcoming [...] percutaneous revascularization. He was evaluated at the [facility] and [facility] cardi[facility]acic [facility]. It was [...] and a reasonable target. Was seen at [facility]; single-vessel coronary artery disease with a [...] LAD. This wo (more content not included)... [facility] Clinical Note 05-13-2023 Note Date & Type [...] and content) DATE CREATED AUTHOR 11/21/2022 [facility] DATE CREATED AUTHOR AUTHOR'S ORGANIZ ATION 05/21/2023 [facility] DATE CREATED AUTHOR AUTHOR'S ORGANIZ ATION 07/10/2023 [facility] DATE CREATED AUTHOR AUTHOR'S ORGANIZ ATION 11/03/2023 [facility] FOR RECORDS PERTAINING TO PATIENTS WHO ARE [...] BE BASED ON THE PRIMARY CLINICAL RECORDS. [employer] [facility]. provides no warranty or guarantee of the accuracy or completeness of information in this document.
[2023-11-28] MEDS: ENOXAPARIN SODIUM 40 MG/0.4 ML SYRINGE SUBQ (17:46)
[2023-11-28] MEDS: LACTATED RINGER'S SOLUTION 1,000 ML 125 ML IV (17:47)
[2023-11-28] MEDS: MORPHINE SULFATE 2 MG/ML SYRINGE IV (17:47)
[2023-11-28] MEDS: CEFTRIAXONE 1,000 MG in 0.9 % SODIUM CHLORIDE 50 ML 100 MG IV (17:47)
[2023-11-28] MEDS: METRONIDAZOLE/SODIUM CHLORIDE 500 MG/100 ML PREMIX 100 MG IV (17:47)
[2023-11-28] MEDS: OXYCODONE HCL 5 MG TABLET PO (20:47)
[2023-11-28] MEDS: CARVEDILOL 25 MG TABLET PO (20:47)
[2023-11-28] MEDS: OMEPRAZOLE 20 MG CAPSULE.DR PO (20:47)
[2023-11-28] MEDS: ONDANSETRON PF 4 MG/2 ML VIAL IV (20:51)
[2023-11-29] VITALS (19 sets, daily range): BP systolic 104–125; BP diastolic 55–67; PULSE 53–73; TEMP 36.6–36.8; O2SAT 92–97
[2023-11-29] MEDS: METRONIDAZOLE/SODIUM CHLORIDE 500 MG/100 ML PREMIX 100 MG IV ×3 (00:02→16:24)
[2023-11-29] MEDS: OXYCODONE HCL 5 MG TABLET PO (02:35)
[2023-11-29] MEDS: LACTATED RINGER'S SOLUTION 1,000 ML 125 ML IV (02:35)
[2023-11-29 05:08] LABS: Basophils Absolute Auto 0.1 10^3/uL (0.0-0.1); Basophils Percent Auto 0.6 % (0.2-2.0); Eosinophils Absolute Auto 0.1 10^3/uL (0.0-0.7); Eosinophils Percent Auto 0.5 % (0.9-7.0); Hematocrit 34.1 % (42.0-54.0); Hemoglobin 10.8 g/dL (14.0-18.0); Immature Granulocytes Abs Auto 0.29 10^3/uL (0.00-0.03); Immature Granulocytes Pct Auto 1.3 % (0.0-0.5); Lymphocytes Absolute Auto 2.3 10^3/uL (1.2-3.8); Lymphocytes Percent Auto 10.3 % (20.5-60.0); Mean Corpuscular HGB Conc 31.7 g/dL (29.9-35.2); Mean Corpuscular Volume 101.2 fL (80.0-94.0); Mean Platelet Volume 8.9 fL (9.5-13.5); Monocytes Absolute Auto 1.4 10^3/uL (0.3-0.8); Monocytes Percent Auto 6.2 % (1.7-12.0); Neutrophils Absolute Auto 18.1 10^3/uL (1.4-6.5); Neutrophils Percent Auto 81.1 % (43.0-75.0); Platelet Count 204 10^3/uL (150-450); Red Blood Count 3.37 10^6/uL (4.70-6.10); Red Cell Distribution Width 14.1 % (11.0-15.0); White Blood Count 22.3 10^3/uL (4.0-11.0)
[2023-11-29] MEDS: LEVOTHYROXINE SODIUM 25 MCG TABLET 50 MCG PO (05:12)
[2023-11-29 05:36] LABS: Alanine Aminotransferase 25 U/L (16-63); Albumin Globulin Ratio 0.8; Albumin Level 2.4 g/dL (3.4-5.0); Alkaline Phosphatase 86 U/L (46-116); Anion Gap 10.9; Aspartate Amino Transferase 21 U/L (15-37); BUN Creatinine Ratio 15.2; Bilirubin Total 0.7 mg/dL (0.2-1.0); Calcium 8.9 mg/dL (8.5-10.1); Carbon Dioxide 23.8 mmol/L (21.0-32.0); Chloride 108 mmol/L (98-107); Estimated GFR (African America >60 (>=60); Estimated GFR (Non-African Ame >60 (>=60); Globulin 2.9 g/dL; Glucose 115 mg/dL (74-106); Potassium 4.7 mmol/L (3.5-5.1); Sodium 138 mmol/L (136-145); Total Protein 5.3 g/dL (6.4-8.2)
[2023-11-29] MEDS: CARVEDILOL 25 MG TABLET PO ×2 (08:12→21:37)
[2023-11-29] MEDS: OMEPRAZOLE 20 MG CAPSULE.DR PO ×2 (08:12→21:37)
--- NOTE | 2023-11-29 09:25 | P.HP_ITS ---
HPI H&P: HPI History of Present Illness Chief complaint: COLITIS/DEHYDRATION Narrative: Patient with a history of constipation last week. Medications were adjusted, they prior to admission started having increasing abdominal pain and cramping, some loose stools on the day of admission, presented to the ER due to the severity of his pain, ER findings show consistent with colitis. Significant leukocytosis. Patient does have a history of diverticulitis. Although not commented on the CT scan, this feels like his diverticulitis to him When I saw patient up on the medical surgical floor, he was resting fairly comfortably. Still with significant pain. Opioid HPI Opioid Management Most Recent Opioid Data: Last Pain Scale 2 11/29/23 09:53 Last Pain Assessment 11/29/23 09:53 Last MAR Pain Assessment 11/29/23 03:42 Last ORT Total Score 3 11/28/23 17:07 Last ORT Risk Category Low Risk 11/28/23 17:07 Review of Systems ROS Status of ROS 10 or more systems reviewed and unremark able except as noted in history and below PFSH PFSH Medical History (Updated 11/29/23 @ 10:10 by Eriberto Archer MD) Hypothyroid ?E03.9 - Hypothyroidism, unspecified (ICD-10) Thrombosis ?I82.90 - Acute embolism and thrombosis of unspecified vein (ICD-10) History of angina ?Z86.79 - Personal history of other diseases of the circulatory system (ICD-1 0) Hypertension ?I10 - Essential (primary) hypertension (ICD-10) Surgical History History of fusion of cervical spine ?Z98.1 - Arthrodesis status (ICD-10) History of appendectomy ?Z90.49 - Acquired absence of other specified parts of digestive tract (ICD- 10) Hx of tonsillectomy ?Z90.89 - Acquired absence of other organs (ICD-10) Social History Highest level of school completed/degree received: Master's degree Meds Home Medications and Allergies Home Medications ?Medication ?Instructions ?Recorded ?Confirmed ?Type aspirin 325 mg tablet 325 mg PO DAILY 08/06/23 11/28/23 History atorvastatin 40 mg tablet 40 mg PO BEDTIME 08/06/23 11/29/23 History carvedilol 25 mg tablet 25 mg PO Q12H 08/06/23 11/28/23 History furosemide 20 mg tablet 20 mg PO DAILY PRN edema 08/06/23 11/28/23 History lansoprazole 15 mg delayed 15 mg PO Q12H 08/06/23 11/28/23 History release,disintegrating tablet levothyroxine 50 mcg tablet 50 mcg PO QDAY 08/06/23 11/28/23 History (Synthroid) nitroglycerin 0.4 mg sublingual 0.4 mg sublingual Q5M 08/06/23 11/28/23 History tablet ranolazine 500 mg tablet,extended 500 mg PO Q12H 08/06/23 11/28/23 History release,12 hr tizanidine 4 mg tablet 4 mg PO BEDTIME 08/06/23 11/28/23 History zolpidem 10 mg tablet 10 mg PO QDAY PRN insomnia 08/06/23 11/29/23 History celecoxib 100 mg capsule 100 mg PO Q12H 08/31/23 11/28/23 History Allergies Allergy/AdvReac Type Severity Reaction Status Date / Time Penicillins Allergy Verified 10/26/23 07:54 Exam Constitutional Vital Signs, click to edit/add: Last Vital Signs Temp 97.9 F 11/29/23 07:36 Pulse 55 L 11/29/23 08:00 Resp 18 11/29/23 07:36 BP 116/67 11/29/23 07:36 Pulse Ox 96 11/29/23 08:00 O2 Del Method Room Air 11/29/23 07:36 Documenting provider has reviewed patient's vital signs: yes Common normals: no apparent distress Chest Common normals: inspection of chest normal Respiratory Common normals: normal respiratory effort, no retractions and clear to auscu ltation bilaterally Cardio Common normals: regular rate and regular rhythm GI Common normals: Normal to inspection, nondistended, normoactive bowel sounds present and soft to palpation; tender (Positive rebound tenderness left lower quadrant, diffusely tender) Palpation: tender (Diffusely with rebound tenderness) Extremity Common normals: normal to inspection Neuro Common normals: oriented x3, CN's II-XII intact bilaterally and moves all extremities Results Labs Labs: Short CBC 11/28/23 11/29/23 Range/Units 14:21 04:16 WBC 22.2 H 22.3 H (4.0-11.0) 10^3/uL Hgb 13.0 L 10.8 L (14.0-18.0) g/dL Hct 41.1 L 34.1 L (42.0-54.0) % Plt Count 236 204 (150-450) 10^3/uL BMP 11/28/23 11/29/23 14:21 04:16 Sodium 136 138 Potassium 4.9 4.7 Chloride 103 108 H Carbon Dioxide 23.0 23.8 BUN 19.0 H 17.0 Creatinine 1.29 1.12 Glucose 135 H 115 H Calcium 9.5 8.9 Liver Function 11/28/23 11/29/23 Range/Units 14:21 04:16 Total Bilirubin 0.8 0.7 (0.2-1.0) mg/dL AST 28 21 (15-37) U/L ALT 34 25 (16-63) U/L Alkaline Phosphatase 120 H 86 (46-116) U/L Albumin 3.1 L 2.4 L (3.4-5.0) g/dL Urine 11/28/23 Range/Units 15:26 Urine Color Yellow (YELLOW) Urine Clarity Clear (CLEAR) Urine pH 6.5 (5.0-9.0) Ur Specific [place] 1.020 (1.005-1.025) Urine Protein Trace (NEG/TRACE) mg/dL Urine Glucose (UA) Negative (NEGATIVE) mg/dL Assessment and Plan Assessment and Plan (1) Dehydration: (2) Leukocytosis: Qualifiers: Leukocytosis type: unspecified Qualified Code(s): D72.829 - Elevated white blood cell count, unspecified (3) Colitis: (4) Diverticulitis large intestine: Plan Admission findings: Increasing abdominal pain, leukocytosis, CT scan consistent with colitis, diverticular disease noted, he has a history of diverticulitis, this feels like his diverticulitis to him, with rebound tenderness on physical findings, will suspect this is acute diverticulitis. Continue with current antibiotic regiment. White blood cell count not significantly improved but just darted treatment. Blood cultures for fever. Diabetes mellitus-add insulin sliding scale Moderate protein calorie malnutrition based on NIH criteria for albumin-diet management Insomnia-continue with home medications Lumbar radiculopathy-continue with home medications Coronary artery disease due to hypercholesterolemia-continue with current medications Hypothyroidism-recent testing, would defer on further testing at this time, continue home medications GERD-continue home medications Hypertension-continue with current medications Admission status: Patient with a history of diverticulitis, increasing abdominal pain, leukocytosis persisting, now rebound tenderness on physical exam findings, patient will need more than 2 midnights, place patient in inpatient status secondary to medically necessary treatment spanning 2 midnights
[2023-11-29] MEDS: LACTATED RINGER'S SOLUTION 1,000 ML 75 ML IV (09:43)
[2023-11-29] MEDS: ASPIRIN 325 MG TABLET PO (09:44)
[2023-11-29] MEDS: RANOLAZINE 500 MG TAB.ER.12H PO ×2 (09:44→21:38)
[2023-11-29 11:39] LABS: Glucometer 158 mg/dL (74-106)
[2023-11-29] MEDS: INSULIN ASPART 300 UNIT/3 ML PEN SUBQ ×2 (11:43→21:37)
[2023-11-29 16:06] LABS: Glucometer 138 mg/dL (74-106)
[2023-11-29] MEDS: ENOXAPARIN SODIUM 40 MG/0.4 ML SYRINGE SUBQ (16:24)
[2023-11-29] MEDS: CEFTRIAXONE 1,000 MG in 0.9 % SODIUM CHLORIDE 50 ML 100 MG IV (17:34)
[2023-11-29 20:49] LABS: Glucometer 159 mg/dL (74-106)
[2023-11-29 21:11] LABS: Adenovirus F 40/41 NOT DETECTED (NOT DETECTE); Astrovirus NOT DETECTED (NOT DETECTE); Campylobacter NOT DETECTED (NOT DETECTE); Cryptosporidium NOT DETECTED (NOT DETECTE); Cyclospora cayetanensis NOT DETECTED (NOT DETECTE); Entamoeba histolytica NOT DETECTED (NOT DETECTE); Enteroaggregative E.coli NOT DETECTED (NOT DETECTE); Enteropathogenic E.coli NOT DETECTED (NOT DETECTE); Enterotoxigenic E. coli NOT DETECTED (NOT DETECTE); Giardia lamblia NOT DETECTED (NOT DETECTE); Norovirus GI/GII NOT DETECTED (NOT DETECTE); Plesiomonas shigelloides NOT DETECTED (NOT DETECTE); Rotavirus A NOT DETECTED (NOT DETECTE); Salmonella NOT DETECTED (NOT DETECTE); Sapovirus NOT DETECTED (NOT DETECTE); Shiga-like toxin-producing E.C NOT DETECTED (NOT DETECTE); Shigella/Enteroinvasive E.coli NOT DETECTED (NOT DETECTE); Vibrio NOT DETECTED (NOT DETECTE); Vibrio cholerae NOT DETECTED (NOT DETECTE); Yersinia enterocolitica NOT DETECTED (NOT DETECTE)
[2023-11-29] MEDS: ATORVASTATIN CALCIUM 40 MG TABLET PO (21:37)
[2023-11-29] MEDS: TIZANIDINE HCL 4 MG TABLET PO (21:37)
[2023-11-29] MEDS: HYOSCYAMINE SULFATE 0.125 MG TAB.SUBL SL (21:43)
[2023-11-29] MEDS: ZOLPIDEM TARTRATE 10 MG TABLET PO (21:47)
[2023-11-29 22:12] LABS: Occult Blood Positive
[2023-11-30] VITALS (15 sets, daily range): BP systolic 96–150; BP diastolic 52–70; PULSE 54–84; TEMP 36.4–36.8; O2SAT 92–96; BMI 21.7
[2023-11-30] MEDS: METRONIDAZOLE/SODIUM CHLORIDE 500 MG/100 ML PREMIX 100 MG IV ×4 (00:20→22:24)
[2023-11-30] MEDS: LACTATED RINGER'S SOLUTION 1,000 ML 75 ML IV ×2 (00:20→15:01)
[2023-11-30 05:21] LABS: Basophils Absolute Auto 0.1 10^3/uL (0.0-0.1); Basophils Percent Auto 0.8 % (0.2-2.0); Eosinophils Absolute Auto 0.1 10^3/uL (0.0-0.7); Hematocrit 32.9 % (42.0-54.0); Immature Granulocytes Abs Auto 0.24 10^3/uL (0.00-0.03); Immature Granulocytes Pct Auto 1.8 % (0.0-0.5); Lymphocytes Absolute Auto 2.9 10^3/uL (1.2-3.8); Lymphocytes Percent Auto 21.8 % (20.5-60.0); Mean Corpuscular HGB Conc 30.4 g/dL (29.9-35.2); Mean Corpuscular Hemoglobin 32.6 pg (25.9-34.0); Mean Corpuscular Volume 107.2 fL (80.0-94.0); Mean Platelet Volume 9.4 fL (9.5-13.5); Monocytes Percent Auto 7.2 % (1.7-12.0); Neutrophils Percent Auto 67.4 % (43.0-75.0); Platelet Count 164 10^3/uL (150-450); Red Blood Count 3.07 10^6/uL (4.70-6.10); Red Cell Distribution Width 14.2 % (11.0-15.0); White Blood Count 13.3 10^3/uL (4.0-11.0)
[2023-11-30] MEDS: LEVOTHYROXINE SODIUM 25 MCG TABLET 50 MCG PO (05:31)
[2023-11-30 05:42] LABS: Alanine Aminotransferase 23 U/L (16-63); Albumin Globulin Ratio 0.8; Albumin Level 2.1 g/dL (3.4-5.0); Alkaline Phosphatase 78 U/L (46-116); Anion Gap 10.5; Aspartate Amino Transferase 16 U/L (15-37); BUN Creatinine Ratio 13.9; Bilirubin Total 0.4 mg/dL (0.2-1.0); Calcium 8.4 mg/dL (8.5-10.1); Carbon Dioxide 24.5 mmol/L (21.0-32.0); Chloride 110 mmol/L (98-107); Estimated GFR (African America >60 (>=60); Estimated GFR (Non-African Ame >60 (>=60); Globulin 2.6 g/dL; Glucose 124 mg/dL (74-106); Sodium 141 mmol/L (136-145); Total Protein 4.7 g/dL (6.4-8.2)
--- NOTE | 2023-11-30 07:42 | P.PN_ITS ---
Progress Note: Subjective Subjective Interval history: Patient patient states pain is somewhat better. Levsin seem to help. Exam Constitutional Vital Signs, click to edit/add: Last Vital Signs Temp 97.9 F 11/30/23 07:33 Pulse 67 11/30/23 07:33 Resp 16 11/30/23 07:33 BP 125/58 11/30/23 07:33 Pulse Ox 94 L 11/30/23 07:33 O2 Del Method Room Air 11/30/23 07:33 Documenting provider has reviewed patient's vital signs: yes Common normals: no apparent distress Chest Common normals: inspection of chest normal Respiratory Common normals: normal respiratory effort, no retractions and clear to auscultation bilaterally Cardio Common normals: regular rate and regular rhythm GI Common normals: Normal to inspection, nondistended, normoactive bowel sounds present and soft to palpation; tender (Diffusely tender with persistent positive rebound tenderness) Palpation: tender (Diffusely with rebound tenderness) Extremity Common normals: normal to inspection Neuro Common normals: oriented x3, CN's II-XII intact bilaterally and moves all extremities Progress Note: Objective Labs Labs: Short CBC 11/30/23 Range/Units 04:14 WBC 13.3 H (4.0-11.0) 10^3/uL Hgb 10.0 L (14.0-18.0) g/dL Hct 32.9 L (42.0-54.0) % Plt Count 164 (150-450) 10^3/uL BMP 11/30/23 04:14 Sodium 141 Potassium 4.0 Chloride 110 H Carbon Dioxide 24.5 BUN 16.0 Creatinine 1.15 Glucose 124 H Calcium 8.4 L Liver Function 11/30/23 Range/Units 04:14 Total Bilirubin 0.4 (0.2-1.0) mg/dL AST 16 (15-37) U/L ALT 23 (16-63) U/L Alkaline Phosphatase 78 (46-116) U/L Albumin 2.1 L (3.4-5.0) g/dL Progress Note: A&P Assessment and Plan (1) Dehydration: (2) Leukocytosis: Qualifiers: Leukocytosis type: unspecified Qualified Code(s): D72.829 - Elevated white blood cell count, unspecified (3) Colitis: (4) Diverticulitis large intestine: Plan Admission findings: Increasing abdominal pain, leukocytosis, CT scan consistent with colitis, diverticular disease noted, he has a history of diverticulitis, this feels like his diverticulitis to him, with rebound tenderness on physical findings, will suspect this is acute diverticulitis. C. difficile tested positive, with rebound tenderness concern for invasive species, increase Flagyl to every 6 hours and increase vancomycin to 250 orally. Maintain Rocephin as a possible for diverticulitis is still there. Acute GI blood loss anemia-possibly upper versus due to colitis-3 g drop in hemoglobin, occult blood positive. Change patient from omeprazole to IV Protonix Diabetes mellitus-add insulin sliding scale-sugars are better Moderate protein calorie malnutrition based on NIH criteria for albumin-diet management Insomnia-continue with home medications Lumbar radiculopathy-continue with home medications Coronary artery disease due to hypercholesterolemia-continue with current medications Hypothyroidism-recent testing, would defer on further testing at this time, continue home medications GERD-continue home medications Hypertension-continue with current medications Admission status: Patient with a history of diverticulitis, increasing abdominal pain, leukocytosis persisting, now rebound tenderness on physical exam findings, patient will need more than 2 midnights, place patient in inpatient status secondary to medically necessary treatment spanning 2 midnights due to positive C. difficile colitis ?
[2023-11-30] MEDS: ASPIRIN 325 MG TABLET PO (08:02)
[2023-11-30] MEDS: CARVEDILOL 25 MG TABLET PO ×2 (08:02→21:18)
[2023-11-30] MEDS: PANTOPRAZOLE SODIUM 40 MG VIAL IV (08:03)
[2023-11-30] MEDS: RANOLAZINE 500 MG TAB.ER.12H PO ×2 (08:03→21:18)
[2023-11-30] MEDS: CELECOXIB 100 MG 100 EACH PO (08:37)
--- NOTE | 2023-11-30 09:08 | CM.NOTE ---
Important Message From [employer] discussed with pt, pt verbalizes understanding and signs paper. Original given to pt and copy placed on pt's chart.
[2023-11-30 11:04] LABS: Glucometer 170 mg/dL (74-106)
[2023-11-30] MEDS: INSULIN ASPART 300 UNIT/3 ML PEN SUBQ ×2 (11:15→21:19)
[2023-11-30] MEDS: HYOSCYAMINE SULFATE 0.125 MG TAB.SUBL SL ×3 (11:15→21:18)
[2023-11-30] MEDS: VANCOMYCIN HCL 7,500 MG/150 ML BOTTLE 250 MG PO ×3 (11:25→21:22)
[2023-11-30 16:09] LABS: Glucometer 137 mg/dL (74-106)
[2023-11-30] MEDS: CEFTRIAXONE 1,000 MG in 0.9 % SODIUM CHLORIDE 50 ML 100 MG IV (17:30)
[2023-11-30 20:24] LABS: Glucometer 228 mg/dL (74-106)
[2023-11-30] MEDS: ATORVASTATIN CALCIUM 40 MG TABLET PO (21:18)
[2023-11-30] MEDS: TIZANIDINE HCL 4 MG TABLET PO (21:18)
[2023-11-30] MEDS: ZOLPIDEM TARTRATE 10 MG TABLET PO (22:24)
[2023-12-01 04:18] VITALS: BP 109/53; PULSE 64; TEMP 36.9; O2SAT 94
[2023-12-01] MEDS: LACTATED RINGER'S SOLUTION 1,000 ML 75 ML IV (04:20)
[2023-12-01] MEDS: METRONIDAZOLE/SODIUM CHLORIDE 500 MG/100 ML PREMIX 100 MG IV (04:23)
[2023-12-01 04:30] VITALS: O2SAT 94
[2023-12-01 05:10] LABS: Basophils Absolute Auto 0.1 10^3/uL (0.0-0.1); Basophils Percent Auto 1.3 % (0.2-2.0); Eosinophils Absolute Auto 0.2 10^3/uL (0.0-0.7); Eosinophils Percent Auto 1.7 % (0.9-7.0); Hematocrit 34.4 % (42.0-54.0); Hemoglobin 10.8 g/dL (14.0-18.0); Immature Granulocytes Abs Auto 0.47 10^3/uL (0.00-0.03); Immature Granulocytes Pct Auto 4.7 % (0.0-0.5); Lymphocytes Absolute Auto 2.6 10^3/uL (1.2-3.8); Lymphocytes Percent Auto 25.5 % (20.5-60.0); Mean Corpuscular HGB Conc 31.4 g/dL (29.9-35.2); Mean Corpuscular Volume 102.1 fL (80.0-94.0); Monocytes Absolute Auto 0.9 10^3/uL (0.3-0.8); Monocytes Percent Auto 9.3 % (1.7-12.0); Neutrophils Absolute Auto 5.8 10^3/uL (1.4-6.5); Neutrophils Percent Auto 57.5 % (43.0-75.0); Platelet Count 206 10^3/uL (150-450); Red Blood Count 3.37 10^6/uL (4.70-6.10); Red Cell Distribution Width 14.1 % (11.0-15.0); White Blood Count 10.1 10^3/uL (4.0-11.0)
[2023-12-01] MEDS: LEVOTHYROXINE SODIUM 25 MCG TABLET 50 MCG PO (05:29)
[2023-12-01] MEDS: HYOSCYAMINE SULFATE 0.125 MG TAB.SUBL SL (05:29)
[2023-12-01] MEDS: VANCOMYCIN HCL 7,500 MG/150 ML BOTTLE 250 MG PO (05:32)
[2023-12-01 05:40] LABS: Alanine Aminotransferase 22 U/L (16-63); Albumin Globulin Ratio 0.8; Albumin Level 2.3 g/dL (3.4-5.0); Alkaline Phosphatase 84 U/L (46-116); Anion Gap 11.4; Aspartate Amino Transferase 18 U/L (15-37); BUN Creatinine Ratio 10.1; Bilirubin Total 0.4 mg/dL (0.2-1.0); Calcium 8.8 mg/dL (8.5-10.1); Carbon Dioxide 26.4 mmol/L (21.0-32.0); Chloride 110 mmol/L (98-107); Estimated GFR (African America >60 (>=60); Estimated GFR (Non-African Ame >60 (>=60); Glucose 92 mg/dL (74-106); Potassium 3.8 mmol/L (3.5-5.1); Sodium 144 mmol/L (136-145); Total Protein 5.3 g/dL (6.4-8.2)
--- NOTE | 2023-12-01 07:29 | P.DS_ITS ---
DS: Providers Provider Date of admission: 11/29/23 17:10 Primary care physician: Eriberto Archer MD DS: Diagnosis Discharge Diagnosis (1) Dehydration: (2) Leukocytosis: Qualifiers: Leukocytosis type: unspecified Qualified Code(s): D72.829 - Elevated white blood cell count, unspecified (3) Colitis: (4) Diverticulitis large intestine: Plan Admission findings: Increasing abdominal pain, leukocytosis, CT scan consistent with colitis, diverticular disease noted, he has a history of diverticulitis, this feels like his diverticulitis to him, with rebound tenderness on physical findings, will suspect this is acute diverticulitis. C. difficile tested positive, with rebound tenderness concern for invasive species, increase Flagyl to every 6 hours and increase vancomycin to 250 orally. Maintain Rocephin as a possible for diverticulitis is still there. Acute GI blood loss anemia with positive occult blood Diabetes mellitus-add insulin sliding scale-sugars are better Moderate protein calorie malnutrition based on NIH criteria for albumin-diet management Insomnia-continue with home medications Lumbar radiculopathy-continue with home medications Coronary artery disease due to hypercholesterolemia-continue with current medications Hypothyroidism-recent testing, would defer on further testing at this time, continue home medications GERD-continue home medications Hypertension-continue with current medications Admission status: Patient with a history of diverticulitis, increasing abdominal pain, leukocytosis persisting, now rebound tenderness on physical exam findings, patient will need more than 2 midnights, place patient in inpatient status secondary to medically necessary treatment spanning 2 midnights due to positive C. difficile colitis ? DS: Summary Status at Discharge Cognitive/behavioral status at discharge: Patient was seen and evaluated in the emergency room with Admission findings: Increasing abdominal pain, leukocytosis, CT scan consistent with colitis, diverticular disease noted, he has a history of diverticulitis, this feels like his diverticulitis to him, with rebound tenderness on physical findings, will suspect this is acute diverticulitis. C. difficile tested positive came back the following day, antibiotics were adjusted. Because it still felt like a diverticulitis flare to him, significant leukocytosis, significant rebound tende rness on exam, he was maintained on antibiotics to treat the diverticulitis and the additional medication to treat the C. difficile colitis. His white blood cell count has returned to normal. His left shift has resolved. Does still have some significant abdominal tenderness but rebound tenderness is very minimal currently. Abdomen is much less firm. He is eating well. Patient also had positive occult blood, this is likely related to the colitis, will follow-up the office for acute blood loss anemia secondary to lower gastrointestinal bleeding with a 3 g drop in hemoglobin. At this point he will be discharged home in improving condition. Medications see list. See me in the office in 2 days. He will be discharged home on treatment for diverticulitis and C. difficile colitis Time Spent with Patient Time attestation: Total time spent providing and/or coordinating discharge services: Time spent: greater than 30 minutes Exam Constitutional Vital Signs, click to edit/add: Last Vital Signs Temp 98.5 F 12/01/23 04:18 Pulse 64 12/01/23 04:18 Resp 16 12/01/23 04:18 BP 109/53 12/01/23 04:18 Pulse Ox 94 L 12/01/23 04:30 O2 Del Method Room Air 12/01/23 04:30 Documenting provider has reviewed patient's vital signs: yes Common normals: no apparent distress Chest Common normals: inspection of chest normal Respiratory Common normals: normal respiratory effort, no retractions and clear to auscultation bilaterally Cardio Common normals: regular rate and regular rhythm GI Common normals: Normal to inspection, nondistended, normoactive bowel sounds present and soft to palpation; tender (Minimal rebound tenderness, overall less tender) Palpation: tender (Diffusely with rebound tenderness but improved) Extremity Common normals: normal to inspection Neuro Common normals: oriented x3, CN's II-XII intact bilaterally and moves all extremities DS: Data Data Completed and Pending Labs on day of discharge: Labs from last 24 hours 12/01/23 11/30/23 11/30/23 04:29 20:22 16:07 WBC 10.1 RBC 3.37 L Hgb 10.8 L Hct 34.4 L MCV 102.1 H MCH 32.0 MCHC 31.4 RDW 14.1 Plt Count 206 MPV 9.0 L Neut % (Auto) 57.5 Lymph % (Auto) 25.5 Snyder % (Auto) 9.3 Eos % (Auto) 1.7 Baso % (Auto) 1.3 Neut # (Auto) 5.8 Lymph # (Auto) 2.6 Snyder # (Auto) 0.9 H Eos # (Auto) 0.2 Baso # (Auto) 0.1 Abs Immat Gran (auto) 0.47 H Imm/Tot Granulo (auto) 4.7 H Sodium 144 Potassium 3.8 Chloride 110 H Carbon Dioxide 26.4 Anion Gap 11.4 BUN 10.0 Creatinine 0.99 Est GFR ( Amer) >60 Est GFR (Non-Af Amer) >60 BUN/Creatinine Ratio 10.1 Glucose 92 Calcium 8.8 Total Bilirubin 0.4 AST 18 ALT 22 Alkaline Phosphatase 84 Total Protein 5.3 L Albumin 2.3 L Globulin 3.0 Albumin/Globulin Ratio 0.8 POC Glucose 228 H 137 H 11/30/23 11:03 WBC RBC Hgb Hct MCV MCH MCHC RDW Plt Count MPV Neut % (Auto) Lymph % (Auto) Snyder % (Auto) Eos % (Auto) Baso % (Auto) Neut # (Auto) Lymph # (Auto) Snyder # (Auto) Eos # (Auto) Baso # (Auto) Abs Immat Gran (auto) Imm/Tot Granulo (auto) Sodium Potassium Chloride Carbon Dioxide Anion Gap BUN Creatinine Est GFR ( Amer) Est GFR (Non-Af Amer) BUN/Creatinine Ratio Glucose Calcium Total Bilirubin AST ALT Alkaline Phosphatase Total Protein Albumin Globulin Albumin/Globulin Ratio POC Glucose 170 H Preliminary micro results at discharge 11/28/23 15:23 - Preliminary Blood NO GROWTH AT 36-48 HOURS. FINAL TO FOLLOW. 11/28/23 15:20 Blood Culture Result 1 - Preliminary Blood NO GROWTH AT 36-48 HOURS. FINAL TO FOLLOW. Discharge Plan Discharge Disposition: Home, Self-Care Discharge Medications: New cefdinir 300 mg capsule 600 mg PO DAILY Qty: 10 0RF vancomycin 125 mg capsule 125 mg PO Q6H 10 Days Qty: 40 0RF ondansetron 4 mg tablet,disintegrating 4 mg PO Q6H PRN (Reason: nausea and vomiting) Qty: 30 11RF Continued atorvastatin 40 mg tablet 40 mg PO BEDTIME carvedilol 25 mg tablet 25 mg PO Q12H tizanidine 4 mg tablet 4 mg PO BEDTIME zolpidem 10 mg tablet 10 mg PO QDAY PRN (Reason: insomnia) levothyroxine [Synthroid] 50 mcg tablet 50 mcg PO QDAY ranolazine 500 mg tablet extended release 12 hr 500 mg PO Q12H aspirin 325 mg tablet 325 mg PO DAILY furosemide 20 mg tablet 20 mg PO DAILY PRN (Reason: edema) lansoprazole 15 mg tablet,disintegrat, delay rel 15 mg PO Q12H nitroglycerin 0.4 mg tablet, sublingual 0.4 mg sublingual Q5M Rx Instructions: do not exceed 3 doses per episode celecoxib 100 mg capsule 100 mg PO Q12H Print Language: Macanese Forms: Portal Instructions
[2023-12-01] MEDS: CARVEDILOL 25 MG TABLET PO (08:37)
[2023-12-01] MEDS: RANOLAZINE 500 MG TAB.ER.12H PO (08:37)
[2023-12-01] MEDS: PANTOPRAZOLE SODIUM 40 MG VIAL IV (08:37)
[2023-12-01] MEDS: ASPIRIN 325 MG TABLET PO (08:37)
[2023-12-01 08:48] VITALS: BP 156/85; PULSE 62; TEMP 36.6; O2SAT 95
--- NOTE | 2023-12-02 13:25 | CM.DCFOLLOWU ---
Person spoke with: patient How are you feeling? diarrhea and cramping in stomach How is your pain? just cramping in stomach, but he spoke with PCP office this morning Did you understand your discharge instructions? yes Do you have any questions about your discharge instructions? no Were you given any prescriptions at discharge? yes Were you able to get your prescriptions filled? yes, had issues with 1 prescription, but spoke to PCP office and they assisted Do you understand how to take your medications as ordered? yes Do you have any questions about your follow up appointment and do you plan to keep your follow up appointment? no questions, follow up with PCP tomorrow Is there anything else that you would like to discuss? no Questions/Comments/Concerns/Other: appreciated all [facility] did to assist him.
== END 2023-12-01 09:31 | disposition home or self-care (01) | DRG 371 ==
LOC: ER 16:16 → MS 17:04
PROVIDERS: Internal Medicine; Admitting Provider Family Medicine; Emergency Provider Emergency Medicine; PCP Family Medicine; Visit Provider Family Medicine
DX: A04.72 Enterocolitis due to Clostridium difficile, not specified as recurrent (principal); K57.33 Diverticulitis of large intestine without perforation or abscess with bleeding; D62 Acute posthemorrhagic anemia; E44.0 Moderate protein-calorie malnutrition; E86.0 Dehydration; E11.9 Type 2 diabetes mellitus without complications; G47.00 Insomnia, unspecified; I25.10 Atherosclerotic heart disease of native coronary artery without angina pectoris; M54.16 Radiculopathy, lumbar region; E78.00 Pure hypercholesterolemia, unspecified; E03.9 Hypothyroidism, unspecified; K21.9 Gastro-esophageal reflux disease without esophagitis; I10 Essential (primary) hypertension; Z68.21 Body mass index [BMI] 21.0-21.9, adult; Z87.440 Personal history of urinary (tract) infections; D72.829 Elevated white blood cell count, unspecified; Z79.82 Long term (current) use of aspirin; Z79.899 Other long term (current) drug therapy; Z79.890 Hormone replacement therapy; Z90.49 Acquired absence of other specified parts of digestive tract; Z90.89 Acquired absence of other organs; Z98.1 Arthrodesis status
CPT/HCPCS: 36415; 74176; 80053; 81001; 82948; 83605; 85025; 87040; 87493; 87507; 94761; 96361; 96365; 96366; 96367; 96368; 96372; 96375; 96376; 99285; G0328; G0378

== ENCOUNTER 2023-12-31 08:51 | Outpatient (OUT) | payer MEDICARE, SELFPAY ==
--- NOTE | 2023-12-31 08:54 | P.CN_ITS ---
Consult Note: HPI Data of Consult Patient: known to practice within the last 3 years Consult date: 08/06/23 Requesting Physician: Nat Benedict NP Primary Care Provider: Eriberto Archer MD Consult Narrative Reason for consult: chronic low back pain Narrative: Donnie Denton a pleasant 68 year old male presents for evaluation and management of chronic lumbar pain, lumbar stenosis with NC, lumbar radiculopathy. Patient has failed to benefit from conservative measures, PT/HEP greater than 6 weeks. Most recently completed right L4-5 L5-S1 TFESI with steroid rotation and is finding 60-70% improvement ongoing. In the past bilateral L4-5 L5-S1 facet medial branch block #1 with 80-90% immediate pain relief in lumbar spine and functional improvement lasting hours after the procedure, noted improvement in ambulation and posture. Patient reports mild low back/right hip pain, 2/10 today increasing 8/10 with standing walking lying flat, decreased with sitting. Reports moderate improvement from current medication regimen without side effects cc:: CC: Nat Benedict NP Review of Systems ROS Status of ROS 10 or more systems reviewed and unremark able except as noted in history and below Musculoskeletal Reports: back pain and extremity pain PFSH PFSH Medical History Diverticulitis large intestine ?K57.32 - Diverticulitis of large intestine without perforation or abscess without bleeding (ICD-10) Dehydration ?E86.0 - Dehydration (ICD-10) Leukocytosis ?D72.829 - Elevated white blood cell count, unspecified (ICD-10) Colitis ?K52.9 - Noninfective gastroenteritis and colitis, unspecified (ICD-10) Hypothyroid ?E03.9 - Hypothyroidism, unspecified (ICD-10) Thrombosis ?I82.90 - Acute embolism and thrombosis of unspecified vein (ICD-10) History of angina ?Z86.79 - Personal history of other diseases of the circulatory system (ICD- 10) Hypertension ?I10 - Essential (primary) hypertension (ICD-10) Surgical History History of fusion of cervical spine ?Z98.1 - Arthrodesis status (ICD-10) History of appendectomy ?Z90.49 - Acquired absence of other specified parts of digestive tract (ICD- 10) Hx of tonsillectomy ?Z90.89 - Acquired absence of other organs (ICD-10) Social History Highest level of school completed/degree received: Master's degree Meds Home Medications and Allergies Home Medications ?Medication ?Instructions ?Recorded ?Confirmed ?Type aspirin 325 mg tablet 325 mg PO DAILY 08/06/23 11/28/23 History atorvastatin 40 mg tablet 40 mg PO BEDTIME 08/06/23 11/29/23 History carvedilol 25 mg tablet 25 mg PO Q12H 08/06/23 11/28/23 History furosemide 20 mg tablet 20 mg PO DAILY PRN edema 08/06/23 11/28/23 History lansoprazole 15 mg delayed 15 mg PO Q12H 08/06/23 11/28/23 History release,disintegrating tablet levothyroxine 50 mcg tablet 50 mcg PO QDAY 08/06/23 11/28/23 History (Synthroid) nitroglycerin 0.4 mg sublingual 0.4 mg sublingual Q5M 08/06/23 11/28/23 History tablet ranolazine 500 mg tablet,extended 500 mg PO Q12H 08/06/23 11/28/23 History release,12 hr tizanidine 4 mg tablet 4 mg PO BEDTIME 08/06/23 11/28/23 History zolpidem 10 mg tablet 10 mg PO QDAY PRN insomnia 08/06/23 11/29/23 History celecoxib 100 mg capsule 100 mg PO Q12H 08/31/23 11/28/23 History cefdinir 300 mg capsule 600 mg (2 x 300 mg) PO DAILY #10 12/01/23 Rx caps ondansetron 4 mg disintegrating 4 mg PO Q6H PRN nausea and 12/01/23 Rx tablet vomiting #30 tabs vancomycin 125 mg capsule 125 mg PO Q6H 10 days #40 caps 12/01/23 Rx Allergies Allergy/AdvReac Type Severity Reaction Status Date / Time Penicillins Allergy Verified 10/26/23 07:54 Exam Constitutional Documenting provider has reviewed patient's vital signs: yes Common normals: no apparent distress, oriented x3, healthy appearing, alert and well nourished Exam limitations: other limitations General appearance: cooperative Orientation/consciousness: Yes awake, Yes oriented to person, Yes oriented to place and Yes oriented to time HENMT Common normals: normocephalic, hearing grossly normal bilaterally and moist oral mucous membranes Head and scalp: normocephalic Eye Common normals: PERRL Pupil: PERRL Neck & C-Spine Common normals: full ROM General: normal visual inspection Chest Common normals: inspection of chest normal Respiratory Common normals: normal respiratory effort, no retractions and no use of accessory muscles Back & Pelvis Lumbar spine/lower back: ROM limited, pain with ROM, straight leg raise positive right and straight leg raise positive left Other: bilateral facet loading right greater than left decreased sensation right L4,5 L5,S1 pattern strength 4/5 in BLE Extremity Common normals: normal to inspection and full ROM Neuro Common normals: oriented x3, CN's II-XII intact bilaterally, moves all extremit ies, no focal motor deficits, no sensory deficits noted and deep tendon reflexes 2+ bilaterally Sensorium/orientation: alert Gait (neuro): normal gait Motor exam: strength 5/5 throughout and no movement abnormalities noted Psych Common normals: mental status grossly normal, thought process normal, cooperative, affect normal, speech normal and activity/motor behavior normal Speech: normal speech Thought process: normal thought process Results Additional Findings Additional findings: If on a controlled substance or opioids, I have checked an [place] report on this patient and there are no aberrancies noted in the prescribing history.??If on a controlled substance or opioid a drug screen was completed and reviewed within the last year, and if there has not been a drug screen completed we ordered one today to monitor higher risk, state monitored pain medication use. As part of providing excellent, safe, comprehensive care, the following was completed at our patient's visit: 1. A medication reconciliation and review to ensure accurate knowledge of current/active medications, including asking our patients to inform us about any [id number] medications or herbal remedies/nutritional supplements/alternative remedies. 2. A review to specifically ensure our patients have had annual screening for screening for depression, screening for tobacco use, and screening for unhealthy alcohol use. For concerning screenings had a discussion with the patient, provided patient education, and recommended follow-up with primary care provider when appropriate. If patient noted with a risk of falling, they received education on strength, gait, and balance training to prevent future risk of falling. Assessment and Plan Assessment and Plan (1) Lumbar stenosis with neurogenic claudication: (2) Lumbar radiculopathy: (3) Lumbar spondylosis: Assessment and Plan: The patient has had over 3 months of moderate to severe low back pain with functional impairment and inadequate response to conservative care including NSA IDS (unless there are contraindication such as concurrent blood thinners), multiple oral or topical pain medications, and home exercise program/physical therapy.? Patient has completed >6 weeks of guided home exercise program and/or formal physical therapy program without relief of their symptoms.? I have reviewed the imaging of the lumbar spine and no red flags were identified.? The imaging reveals radiographic findings consistent with lumbar spondylosis We discussed the risks and benefits of the procedure with the patient, and we are NOT planning on using sedation as outlined in the guidelines from Medicare unless there is a documented reason that sedation would be strongly recommended.?? The procedure will be completed with fluoroscopic guidance.? (4) Myofascial pain: Plan Right L4-5, L5-S1 transforaminal epidural steroid injection with depomedrol providing >50% improvement ongoing, can call to repeat when pain worsens as he is noticing increase in NC symptoms continue current medications, tolerating well without side effect f/u 2 weeks after JAVI, or as needed
== END 2023-12-31 08:52 | disposition home or self-care (01) ==
LOC: PM 08:51
PROVIDERS: PCP Family Medicine; Visit Provider Nurse Practitioner
DX: M48.062 Spinal stenosis, lumbar region with neurogenic claudication (principal); M54.16 Radiculopathy, lumbar region; M47.816 Spondylosis without myelopathy or radiculopathy, lumbar region; M79.18 Myalgia, other site
CPT/HCPCS: G0463

== ENCOUNTER 2024-01-14 17:56 | Outpatient (OUT) | payer MEDICARE, SELFPAY ==
--- OUTSIDE RECORDS SUMMARY | 2024-01-14 17:59 | XMS_ITS ---
Patient Summarization (C-CDA 2.1 CCD) Created on: January 14, 2024 DONNIE DENTON : 1955 Sex: Male Author Organization Sample organization Care Team Providers Care Medical Office Asst Name Role Phone MADAIY ., DR HORNER [...] Unavailable HOY ., DR HORNER Consulting Unavailable MIGNON, DR PA Campbell Consulting Unavailable HOY ., [...] HORNER Consulting Unavailable LAWANDA VEE Consulting Unavailable [facility] Attending Unavailable [facility] Admitting Unavailable [place] Attending Unavailable BLAYNE DAILY Attending Unavailable [place] Referring Unavailable Nellie MUÑOZ, Stefany Vines Attending Unavailable Nellie MUÑOZ, Stefany Vines Attending Unavailable Nellie MUÑOZ, Estelitarius Vines Attending Unavailable Gianni MUÑOZ, Evens Benavidez Attending Pramod Lugo Attending Unavailable Allergies Allergy Classification Reported Allergen(s) Allergy Type Date of Onset Reaction(s) Facility (3 sources) Penicillins; 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: [PENICILLINS] Drug allergy (disorder) 10-25-2014 [facility] Repository (1 source) amLODIPine; 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: [AMLODIPINE] Drug Allergy 05-20-2023 [facility] Repository (2 sources) HYDROcodone; 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: [HYDROCODONE] Drug Allergy 10-25-2014 [facility] Repository (1 source) nabumetone; 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: [NABUMETONE] Drug Allergy 10-25-2014 [facility] Repository (1 source) nabumetone; 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: [Relafen] Drug Allergy [facility] Repository Encounters Encounter Date Encounter Type Care Provider Facility Start: 10-26-2023 End: 10-27-2023 ambulatory Stefany Ballard MD Facility:[facility] Start: 09-21-2023 End: 09-22-2023 ambulatory Stefany Ballard MD Facility:[facility] Start: 08-31-2023 End: 09-01-2023 ambulatory Stefany Ballard MD Facility:[facility] Start: 07-17-2023 ambulatory Evens Archer MD Facility:[facility] Start: 07-08-2023 End: 07-08-2023 ambulatory BLAYNE [facility] Start: 06-29-2023 End: 06-29-2023 ambulatory [facility] Start: 06-29-2023 End: 06-29-2023 Encounter for other preprocedural examination [facility] Start: 06-17-2023 Encounter for other preprocedural examination [facility] Start: 05-20-2023 End: 05-[facility] Start: 05-13-2023 End: 05-14-2023 ambulatory Pramod HAYWARD Facility:[facility] Start: 05-08-2023 ambulatory Pramod HAYWARD [facility] Start: 04-29-2023 ambulatory Pramod RENEEBrown Facility:[facility] Start: 11-13-2022 End: 11-14-2022 ambulatory [...] 12-07-[address] EVENS ARCHER . Facility:[facility] Payers Date Payer Category Payer Unknown 2014 Unknown [id number] 1959 Self-pay [id number] 1959 Unknown [id number] 1955 Unknown [id number] 2.16.84 0.1.125404.3.579.2 1955 Unknown [id number] 2.16.84 [id number] 1955 Unknown [id number] 2.16.84 0.1.118646.3.579.2 1955 Unknown [id number] 2.16.84 0.1.733853.3.579.259 1955 Unknown [id number] 2..84 0.1.086888.3.579.2 1955 Unknown [id number] 2.16.84 0.1.920034.3.579.2.593 1955 Unknown [id number] 2.16.84 0.1.554676.3.579.2.593 1954 Unknown [id number] 2.16.84 0.1.199073.3.579.2.593 1955 Unknown [id number] 2.16. 840.1.036520.3.579.2.196 1955 Unknown [id number] 2.16. 840.1.241052.3.579.2.196 1955 Unknown [id number] 2.16. 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 Comment on above: Performed By: #### P [facility] #### [facility] [address] [place] [address] Dr. Gianni Deluna Results Test Name Value Interpretation Reference Range Facility ED Note-Physicianon 12-07-19 ED Note-Physician [id number] 0TIFF Normal [facility] Lab Reportson 12-07-2023 Lab Reports [id number]#1.0 0TIFF Normal [facility] Lab Reports [id number] 0TIFF Normal [facility] Physician Referralon 024 Physician Referral [id number] 0TIFF [facility] RAD - CT Reporton 12-07-2023 RAD - CT Report [id number] 0TIFF Normal [facility] Physician Referralon 024 Physician Referral [id number] 0TIFF Normal [facility] 37on 07-08-2023 37 *Take lasix for 2 da ys then as needed *Limit salt/sodium intake Normal [facility] Office Visiton 07-08-2023 Follow-up visit [id number] Chung Denton 1955 M Date Provider Department Center 07/08/2023 Kevin-BLAYNE DAILY CARD [facility] Family History Problem Relation Age of Onset Heart attack Paternal Grandfather Family Status - Relation Status Age at Paternal Grandfather Level of Service:86774 ND OFFICE/OUTPATIENT ESTABLISHED MOD MDM 30-39 MIN Reason for Visit and Comments: Edema [[id number]] Normal [facility] ANESon 06-29-2023 ANES -- Attestation signed by Eliane Murillo MD at 06/29/2023 9:56 AM Eliane Murillo MD, MPH, FACC, [facility], [facility] Interventional Cardiology Pager Email: [email or web address] Patient: Donnie Denton Procedure Information Date/Time: 06/29/23 1030 Procedures: Coronary angiography (Bilateral) - per Maria G in pre-cert at [facility], this has already been authorized thru Aug 2023 - right femoral approach Right heart cath Location: [facility] / [facility] (Cath) Providers: Eliane Murillo [...] fellow and attending. Additional Equipment Requests Normal [facility] HPon 06-29-2023 HP -- Attestation signed by Eliane Murillo MD at 06/29/2023 9:57 AM Eliane Murillo MD, MPH, FACC, [facility], [facility] Interventional Cardiology Pager Email: [email or web address] History Of Present Illness Donnie Denton [...] surgery at [facility] and elected to pursue medical management at [...] treated since 2014. Meaghan Mukherjee DO, MPH [employer] Management Technician [facility] SHARYNNOTJuancarlos 06-29-2023 NURSNOTE RN educated pt on d/ c instructions. RN encouraged pt to voice any questions or concerns. Pt verbalizes no questions or concerns at this time. Normal [facility] Orders Onlyon 06-17-2023 Orders Only [id number] Chung Denton 1955 M Date Provider Department Center 06/17/2023 DEIRDRE THOMPSON VALERIANO Robb Family History Problem Relation Age of Onset Heart attack Paternal Grandfather Family Status - Relation Status Age at Paternal Grandfather [facility] Letter (Out)on 05-26-2023 Letter (Out) [id number] Chung Denton 1955 M Date Provider Department Center 05/26/2023 None-None [facility] Family History Problem Relation Age of Onset Heart attack Paternal Grandfather Family Status - Relation Status Age at Paternal Grandfather Normal [facility] Office Visiton 05-20-2023 Follow-up visit [id number] Chung Denton 1955 M Date Provider Department Center 05/20/2023 Richa-ELIANE MURILLO [facility] Family History Problem Relation Age of Onset Heart attack Paternal Grandfather Family Status - Relation Status Age at Paternal Grandfather Level of Service:83849 ND OFFICE/OUTPATIENT [facility] MDM 60-74 MINUTES Normal [facility] Orders Onlyon 05-20-2023 Orders Only [id number] Chung Denton R 1955 M Date Provider Department Center 05/20/2023 HIMANSHU PRICE VALERIANO [facility] Family History Problem Relation Age of Onset Heart attack Paternal Grandfather Family Status - Relation Status Age at Paternal Grandfather Normal [facility] Facesheeton 05-14-2023 Facesheet [id number] D:127 Normal [facility] Ambulatory Visit Summaryon 0 05-13-2023 Ambulatory Visit Summary DONNIE DENTON :1955 Visit Date:05/13/2023 Ambulatory Visit Instructions Your Care Team Attending Physician - Pramod HAYWARD MD Primary Care Physician - Evens Archer MD [...] Spondylosis of cervical spine Ureteral calculus Normal [facility] Physician Referralon 023 Physician Referral [id number] CD:127 Normal [facility] XR HIP RT 2 3V W [...] ANTONI PENALOZA Date: 2022-11-13 22:38 Normal [facility] XR LSPINE MIN 4 VIEWSon [...] paraspinous abnormality is seen. OTHER: Negative. IMPRESSION: Ehep-hl-dqqdvoor degenerative changes Electronically authenticated by: ANTONI TRACEY Date: 2022-11-14 07:58 Normal [facility] CREATININEon 11-11-2022 Creatinine [Mass/Vol] 1.04 mg/dL Normal 0.70-1.30 [facility] Comment on above: Performed By: #### C ASIF #### [facility] [address] [place] [address] Dr. Gianni Deluna EGFR-AF CUBAN >60 Normal >=60 [facility] Comment on above: Performed By: #### C ASIF #### [facility] [address] [place] [address] Dr. Gianni Deluna EGFR-NON AF CUBAN >60 Normal >=60 [facility] Comment on above: Performed By: #### C ASIF #### [facility] [address] [place] [address] CHEST W CONon [...] by: PA CROW Date: 2022-11-11 11:29 Normal [facility] MRI CSPINE WO CONon 08-14-20 [facility] [...] ANTONI TRACEY Date: 2022-08-14 09:19 Normal [facility] INSULINon 06-04-2022 Insulin 13.5 uIU/mL Normal 2.6-24.9 [facility] Comment on above: Performed By: #### L ACT #### [facility] [address] [place] [address] Dr. Gianni Deluna CBC AUTO DIFFon 06-03-2022 BASO # 0.1 103/ul Normal 0.0-0.1 [facility] Comment on above: Performed By: #### L ACT #### [facility] [address] [address] [address] Gianni Deluna Basophils/100 WBC (Bld) 1.2 % Normal 0.2-2.0 [facility] Comment on above: Performed By: #### L ACT #### [facility] [address] [place] [address] Dr. Gianni Deluna EO # 0.4 103/ul Normal 0.0-0.7 [facility] Comment on above: Performed By: #### L ACT #### [facility] [address] [place] [address] Dr. Gianni Deluna Eosinophils/100 WBC (Bld) 5.9 % Normal 0.9-7.0 [facility] Comment on above: Performed By: #### L ACT #### [facility] [address] [place] [address] Dr. Gianni Deluna Erythrocyte distribution width (RBC) [Ratio] 13.4 % Normal 11.0-15.0 [facility] Comment on above: Performed By: #### L ACT #### [facility] [address] [place] [address] Dr. Gianni Deluna Hematocrit (Bld) [Volume fraction] 39.6 % Critically low 42.0-54.0 [facility] Comment on above: Performed By: #### L ACT #### [facility] [address] [place] [address] Dr. Gianni Deluna Hemoglobin (Bld) [Mass/Vol] 12.8 g/dL Critically low 14.0-18.0 [facility] Comment on above: Performed By: #### L ACT #### [facility] [address] [address] [address] Gianni Deluna IG # 0.04 10e3/ul Critically high 0.00-0.03 [facility] Comment on above: Performed By: #### L ACT #### [facility] [address] [place] [address] Dr. Gianni Deluna IG % 0.7 % Critically high 0.0-0.5 [facility] Comment on above: Performed By: #### L ACT #### [facility] [address] [place] [address] Dr. Gianni Deluna LYMPH # 1.9 103/ul Normal 1.2-3.8 [facility] Comment on above: Performed By: #### L ACT #### [facility] [address] [place] [address] Dr. Gianni Deluna Lymphocytes/100 WBC (Bld) 31.7 % Normal 20.5-60.0 [facility] Comment on above: Performed By: #### L ACT #### [facility] [address] [place] [address] Dr. Gianni Deluna MANUAL DIFF REQ NO Normal [facility] Comment on above: Performed By: #### L ACT #### [facility] [address] [place] [address] Dr. Gianni Deluna MCH (RBC) [Entitic mass] 30.2 pg Normal 25.9-34.0 [facility] Comment on above: Performed By: #### L ACT #### [facility] [address] [place] [address] Dr. Gianni Deluna MCHC (RBC) [Mass/Vol] 32.3 g/dL Normal 29.9-35.2 [facility] Comment on above: Performed By: #### L ACT #### [facility] [address] [place] [address] Dr. Gianni Deluna MCV (RBC) [Entitic vol] 93.4 fL Normal 80.0-94.0 [facility] Comment on above: Performed By: #### L ACT #### [facility] [address] [address] [address] Gianni Deluna MONO # 0.7 103/ul Normal 0.3-0.8 [facility] Comment on above: Performed By: #### L ACT #### [facility] [address] [address] [address] Gianni Deluna Monocytes/100 WBC (Bld) 11.9 % Normal 1.7-12.0 [facility] Comment on above: Performed By: #### L ACT #### [facility] [address] [address] [address] Gianni Deluna NEUT # 2.9 103/ul Normal 1.4-6.5 [facility] Comment on above: Performed By: #### L ACT #### [facility] [address] [place] [address] Dr. Gianni Deluna Neutrophils/100 WBC (Bld) 48.6 % Normal 43.0-75.0 [facility] Comment on above: Performed By: #### L ACT #### [facility] [address] [place] [address] Dr. Gianni Deluna Platelet mean volume (Bld) [Entitic vol] 9.1 fL Critically low 9.5-13.5 [facility] Comment on above: Performed By: #### L ACT #### [facility] [address] [place] [address] Dr. Gianni Deluna PLT 168 103/ul Normal 150-450 [facility] Comment on above: Performed By: #### L ACT #### [facility] [address] [place] [address] Dr. Gianni Deluna RBC 4.24 106/ul Critically low 4.70-6.10 [facility] Comment on above: Performed By: #### L ACT #### [facility] [address] [place] [address] Dr. Gianni Deluna WBC 6.0 103/ul Normal 4.0-11.0 [facility] Comment on above: Performed By: #### L ACT #### [facility] [address] [place] [address] Dr. Gianni Deluna FREE THYROXINE INDEX T7on FTI 1.91 Normal 1.30-4.50 [facility] Comment on above: Performed By: #### L ACT #### [facility] [address] [address] [address] Gianni Deluna T3U 36.0 % Normal 33.0-40.0 [facility] Comment on above: Performed By: #### L ACT #### [facility] [address] [address] [address] Gianni Deluna T4 [Mass/Vol] 5.30 ug/dL Normal 4.50-12.10 [facility] Comment on above: Performed By: #### L ACT #### [facility] [address] [address] [address] Gianni Deluna GLYCOHEMOGLOBIN A1Con 2021 ADA RECOMMENDATION SEE BELOW Normal [facility] Comment on above: Result Comment: ADA RECOMMENDED LIMIT 4.0 - 6.0 ADA THERAPEUTIC TARGET < 7.0 ACTION SUGGESTED > 7.0 Performed By: #### D DIM #### [facility] [address] [place] [address] Dr. Gianni Deluna Glucose [Mass/Vol] 140 mg/dL Normal [facility] Comment on above: Performed By: #### D DIM #### [facility] [address] [place] [address] Dr. Gianni Deluna HbA1c (Bld) [Mass fraction] 6.5 % Critically high 4.5-6.2 [facility] Comment on above: Performed By: #### D DIM #### [facility] [address] [address] [address] Gianni Deluna LIPID PROFILEon 06-03-2022 CHOL-HDL RATIO NORM SEE BELOW Normal [facility] Comment on above: Result Comment: 3.3 - 4.4 LOW RISK 4.4 - 7.1 AVERAGE RISK 7.1 - 11.0 MODERATE RISK >11.0 HIGH RISK Performed By: #### T SH, T7, URIC, CMP, LIPID #### [facility] [address] [place] [address] Dr. Gianni Deluna Cholesterol [Mass/Vol] 104 mg/dL Normal <=200 [facility] Comment on above: Performed By: #### T SH, T7, URIC, CMP, LIPID #### [facility] [address] [address] [address] Gianni Deluna Cholesterol in HDL [Mass/Vol] 49 mg/dL Normal 40-60 [facility] Comment on above: Performed By: #### T SH, T7, URIC, CMP, LIPID #### [facility] [address] [address] [address] Gianni Deluna Cholesterol in LDL [Mass/Vol] 46.6 mg/dL Normal [facility] Comment on above: Performed By: #### T SH, T7, URIC, CMP, LIPID #### [facility] [address] [place] [address] Dr. Gianni Deluna Cholesterol.total/Ch olesterol in HDL [Mass ratio] 2.1 {ratio} Normal [facility] Comment on above: Performed By: #### T SH, T7, URIC, CMP, LIPID #### [facility] [address] [address] [address] Gianni Deluna HDL NORMAL > or = 60 mg/dl - LO W CARDIOVASCULAR RISK <40 mg/dl - HIGH CARDIOVASCULAR RISK Normal [facility] Comment on above: Performed By: #### T SH, T7, URIC, CMP, LIPID #### [facility] [address] [address] [address] Gianni Deluna LDL CALC NORMAL SEE BELOW Normal [facility] Comment on above: Result Comment: <100 mg/dl OPTIMAL 100 - 129 mg/dl NEAR OR ABOVE OPTIMAL 130 - 159 mg/dl BORDERLINE HIGH 160 - 189 mg/dl HIGH >190 mg/dl VERY HIGH Performed By: #### T SH, T7, URIC, CMP, LIPID #### [facility] [address] [address] [address] Gianni Deluna Triglyceride [Mass/Vol] 42 mg/dL Normal <=150 [facility] Comment on above: Performed By: #### T SH, T7, URIC, CMP, LIPID #### [facility] [address] [address] [address] Gianni Deluna VLDL CALC 8.4 mg/dL Normal [facility] Comment on above: Performed By: #### T SH, T7, URIC, CMP, LIPID #### [facility] [address] [address] [address] Gianni Deluna PROF 14(COMP METB)on 06-03-2 022 Albumin [Mass/Vol] 2.9 g/dL Critically low 3.4-5.0 [facility] Comment on above: Performed By: #### T SH, T7, URIC, CMP, LIPID #### [facility] [address] [address] [address] Gianni Deluna Albumin/Globulin [Mass ratio] 0.8 {ratio} Normal [facility] Comment on above: Performed By: #### T SH, T7, URIC, CMP, LIPID #### [facility] [address] [place] [address] Dr. Gianni Deluna ALP [Catalytic activity/Vol] 127 U/L Critically high 46-116 [facility] Comment on above: Performed By: #### T SH, T7, URIC, CMP, LIPID #### [facility] [address] [address] [address] Gianni Deluna ALT [Catalytic activity/Vol] 23 U/L Normal 16-63 [facility] Comment on above: Performed By: #### T SH, T7, URIC, CMP, LIPID #### [facility] [address] [address] [address] Gianni Deluna Anion gap [Moles/Vol] 8.4 mmol/L Normal [facility] Comment on above: Performed By: #### T SH, T7, URIC, CMP, LIPID #### [facility] [address] [address] [address] Gianni Deluna AST [Catalytic activity/Vol] 21 U/L Normal 15-37 [facility] Comment on above: Performed By: #### T SH, T7, URIC, CMP, LIPID #### [facility] [address] [address] [address] Gianni Deluna Bilirubin [Mass/Vol] 0.5 mg/dL Normal 0.2-1.0 [facility] Comment on above: Performed By: #### T SH, T7, URIC, CMP, LIPID #### [facility] [address] [place] [address] Dr. Gianni Deluna Calcium [Mass/Vol] 8.3 mg/dL Critically low 8.5-10.1 [facility] Comment on above: Performed By: #### T SH, T7, URIC, CMP, LIPID #### [facility] [address] [place] [address] Dr. Gianni Deluna Chloride [Moles/Vol] 107 mmol/L Normal 98-107 [facility] Comment on above: Performed By: #### T SH, T7, URIC, CMP, LIPID #### [facility] [address] [place] [address] Dr. Gianni Deluna CO2 [Moles/Vol] 30.6 mmol/L Normal 21.0-32.0 [facility] Comment on above: Performed By: #### T SH, T7, URIC, CMP, LIPID #### [facility] [address] [place] [address] Dr. Gianni Deluna Creatinine [Mass/Vol] 0.93 mg/dL Normal 0.70-1.30 [facility] Comment on above: Performed By: #### T SH, T7, URIC, CMP, LIPID #### [facility] [address] [place] [address] Dr. Gianni Deluna EGFR-AF CUBAN >60 Normal >=60 [facility] Comment on above: Performed By: #### T SH, T7, URIC, CMP, LIPID #### [facility] [address] [place] [address] Dr. Gianni Deluna EGFR-NON AF CUBAN >60 Normal >=60 [facility] Comment on above: Performed By: #### T SH, T7, URIC, CMP, LIPID #### [facility] [address] [place] [address] Dr. Gianni Deluna Globulin (S) [Mass/Vol] 3.5 g/dL Normal [facility] Comment on above: Performed By: #### T SH, T7, URIC, CMP, LIPID #### [facility] [address] [place] [address] Dr. Gianni Deluna Glucose [Mass/Vol] 114 mg/dL Critically high 74-106 [facility] Comment on above: Performed By: #### T SH, T7, URIC, CMP, LIPID #### [facility] [address] [place] [address] Dr. Gianni Deluna Potassium [Moles/Vol] 4.0 mmol/L Normal 3.5-5.1 [facility] Comment on above: Performed By: #### T SH, T7, URIC, CMP, LIPID #### [facility] [address] [place] [address] Dr. Gianni Deluna Protein [Mass/Vol] 6.4 g/dL Normal 6.4-8.2 [facility] Comment on above: Performed By: #### T SH, T7, URIC, CMP, LIPID #### [facility] [address] [place] [address] Dr. Gianni Deluna Sodium [Moles/Vol] 142 mmol/L Normal 136-145 [facility] Comment on above: Performed By: #### T SH, T7, URIC, CMP, LIPID #### [facility] [address] [place] [address] Dr. Gianni Deluna Urea nitrogen [Mass/Vol] 11.0 mg/dL Normal 7.0-18.0 [facility] Comment on above: Performed By: #### T SH, T7, URIC, CMP, LIPID #### [facility] [address] [place] [address] Dr. Gianni Deluna Urea nitrogen/Creatinine [Mass ratio] 11.8 mg/mg Normal [facility] Comment on above: Performed By: #### T SH, T7, URIC, CMP, LIPID #### [facility] [address] [place] [address] Dr. Gianni Deluna TSHon 06-03-2022 TSH 0.814 uIU/mL Normal 0.358-3.740 [facility] Comment on above: Performed By: #### L ACT #### [facility] [address] [address] [address] Gianni Deluna URIC ACID SERUMon 06-03-2022 Urate [Mass/Vol] 5.2 mg/dL Normal 3.5-7.2 [facility] Comment on above: Performed By: #### T SH, T7, URIC, CMP, LIPID #### [facility] [address] [address] [address] Gianni Deluna CARDIAC ALEX 3-6on 2 CK [Catalytic activity/Vol] 82 U/L Normal 39-308 [facility] Comment on above: Performed By: #### L ACT #### [facility] [address] [address] [address] Gianni Deluna CK.MB [Mass/Vol] 2.40 ng/mL Normal <=3.60 [facility] Comment on above: Performed By: #### L ACT #### [facility] [address] [place] [address] Dr. Gianni Deluna HSTROP 8.6 pg/mL Normal 4.0-76.1 [facility] Comment on above: Result Comment: CUT- OFF POINTS HAVE BEEN ESTABLISHED BASED ON THE FOURTH UNIVERSAL DEFINITIONS OF MYOCARDIAL INFARCTION. THE UPPER REFERENCE LIMIT (URL) OF TROPONIN, DEFINED THE 99TH PERCENTILE OF cTnI DISTRIBUTION IN A REFERENCE POPULATION, HAS BEEN CONFIRMED THE DECISION THRESHOLD FOR [place] DIAGNOSIS. Performed By: #### L ACT #### [facility] [address] [place] [address] ABD/PELV W CONon [...] JAIMIE COOPER Date: 2022-04-21 00:38 Normal [facility] LACTATE/LACTIC ACIDon 2021 Lactate [Moles/Vol] 2.2 mmol/L Critically high 0.4-1.9 [facility] Comment on above: Performed By: #### L ACT #### [facility] [address] [address] [address] Gianni Deluna AMYLASEon 04-20-2022 Amylase [Catalytic activity/Vol] 139 U/L Critically high 25-115 [facility] Comment on above: Performed By: #### L ACT #### [facility] [address] [address] [address] Gianni Deluna CARDIAC ALEX ADMITon 022 CK [Catalytic activity/Vol] 88 U/L Normal 39-308 [facility] Comment on above: Performed By: #### C MADM #### [facility] [address] [address] [address] Gianni Deluna CK.MB [Mass/Vol] 1.82 ng/mL Normal <=3.60 [facility] Comment on above: Performed By: #### C MADM #### [facility] [address] [address] [address] Gianni Deluna HSTROP 7.2 pg/mL Normal 4.0-76.1 [facility] Comment on above: Result Comment: CUT- OFF POINTS HAVE BEEN ESTABLISHED BASED ON THE FOURTH UNIVERSAL DEFINITIONS OF MYOCARDIAL INFARCTION. THE UPPER REFERENCE LIMIT (URL) OF TROPONIN, DEFINED THE 99TH PERCENTILE OF cTnI DISTRIBUTION IN A REFERENCE POPULATION, HAS BEEN CONFIRMED THE DECISION THRESHOLD FOR [place] DIAGNOSIS. Performed By: #### C MADM #### [facility] [address] [address] [address] Gianni Deluna FILIBERTO 93 ng/mL Normal 16-96 [facility] Comment on above: Performed By: #### C MADM #### [facility] [address] [address] [address] Gianni Deluna CBC AUTO DIFFon 04-20-2022 BASO # 0.0 103/ul Normal 0.0-0.1 [facility] Comment on above: Performed By: #### C BC #### [facility] [address] [address] [address] Gianni Deluna Basophils/100 WBC (Bld) 0.3 % Normal 0.2-2.0 [facility] Comment on above: Performed By: #### C BC #### [facility] [address] [place] [address] Dr. Gianni Deluna EO # 0.0 103/ul Normal 0.0-0.7 [facility] Comment on above: Performed By: #### C BC #### [facility] [address] [place] [address] Dr. Gianni Deluna Eosinophils/100 WBC (Bld) 0.1 % Critically low 0.9-7.0 [facility] Comment on above: Performed By: #### C BC #### [facility] [address] [address] [address] Gianni Deluna Erythrocyte distribution width (RBC) [Ratio] 13.5 % Normal 11.0-15.0 [facility] Comment on above: Performed By: #### C BC #### [facility] [address] [place] [address] Dr. Gianni Deluna Hematocrit (Bld) [Volume fraction] 45.8 % Normal 42.0-54.0 [facility] Comment on above: Performed By: #### C BC #### [facility] [address] [place] [address] Dr. Gianni Deluna Hemoglobin (Bld) [Mass/Vol] 15.3 g/dL Normal 14.0-18.0 [facility] Comment on above: Performed By: #### C BC #### [facility] [address] [address] [address] Gianni Deluna IG # 0.05 10e3/ul Critically high 0.00-0.03 [facility] Comment on above: Performed By: #### C BC #### [facility] [address] [address] [address] Gianni Deluna IG % 0.5 % Normal 0.0-0.5 [facility] Comment on above: Performed By: #### C BC #### [facility] [address] [address] [address] Gianni Deluna LYMPH # 0.8 103/ul Critically low 1.2-3.8 [facility] Comment on above: Performed By: #### C BC #### [facility] [address] [place] [address] Dr. Gianni Deluna Lymphocytes/100 WBC (Bld) 7.7 % Critically low 20.5-60.0 [facility] Comment on above: Performed By: #### C BC #### [facility] [address] [address] [address] Gianni Deluna MANUAL DIFF REQ NO Normal [facility] Comment on above: Performed By: #### C BC #### [facility] [address] [place] [address] Dr. Gianni Deluna MCH (RBC) [Entitic mass] 30.4 pg Normal 25.9-34.0 [facility] Comment on above: Performed By: #### C BC #### [facility] [address] [place] [address] Dr. Gianni Deluna MCHC (RBC) [Mass/Vol] 33.4 g/dL Normal 29.9-35.2 [facility] Comment on above: Performed By: #### C BC #### [facility] [address] [place] [address] Dr. Gianni Deluna MCV (RBC) [Entitic vol] 90.9 fL Normal 80.0-94.0 [facility] Comment on above: Performed By: #### C BC #### [facility] [address] [address] [address] Gianni Deluna MONO # 0.4 103/ul Normal 0.3-0.8 [facility] Comment on above: Performed By: #### C BC #### [facility] [address] [address] [address] Gianni Deluna Monocytes/100 WBC (Bld) 3.3 % Normal 1.7-12.0 [facility] Comment on above: Performed By: #### C BC #### [facility] [address] [address] [address] Gianni Deluna NEUT # 9.7 103/ul Critically high 1.4-6.5 [facility] Comment on above: Performed By: #### C BC #### [facility] [address] [place] [address] Dr. Gianni Deluna Neutrophils/100 WBC (Bld) 88.1 % Critically high 43.0-75.0 [facility] Comment on above: Performed By: #### C BC #### [facility] [address] [place] [address] Dr. Gianni Deluna Platelet mean volume (Bld) [Entitic vol] 8.9 fL Critically low 9.5-13.5 [facility] Comment on above: Performed By: #### C BC #### [facility] [address] [place] [address] Dr. Gianni Deluna PLT 198 103/ul Normal 150-450 [facility] Comment on above: Performed By: #### C BC #### [facility] [address] [place] [address] Dr. Gianni Deluna RBC 5.04 106/ul Normal 4.70-6.10 [facility] Comment on above: Performed By: #### C BC #### [facility] [address] [place] [address] Dr. Gianni Deluna WBC 11.0 103/ul Normal 4.0-11.0 [facility] Comment on above: Performed By: #### C BC #### [facility] [address] [place] [address] Dr. Gianni Deluna Covid-19 PCR (CVDTB)on SARS-CoV-2 (COVID-19) RNA NICHOLE+probe Ql (Unsp spec) Not detected Normal NOT DETECTED [facility] Comment on above: Result Comment: [...] for this test is supported by the [place] of Health and Human Service's declaration that [...] used). Performed By: #### C VDTBH #### [facility] [address] [place] [address] Dr. Gianni Deluna D-DIMERon 04-20-2022 D-DIMER 0.37 mg/L FEU Normal <=0.59 [facility] Comment on above: Performed By: #### D DIM #### [facility] [address] [place] [address] Dr. Gianni Deluna D-DIMER COMMENTS SEE BELOW Normal [facility] Comment on above: Result Comment: Incr [...] hospitalization. Performed By: #### D DIM #### [facility] [address] [place] [address] Dr. Gianni Deluna LACTATE/LACTIC ACIDon 2021 Lactate [Moles/Vol] 2.3 mmol/L Critically high 0.4-1.9 [facility] Comment on above: Performed By: #### L ACT #### [facility] [address] [place] [address] Dr. Gianni Deluna LIPASEon 04-20-2022 Lipase [Catalytic activity/Vol] 48.0 U/L Critically low 73.0-393.0 [facility] Comment on above: Performed By: #### L ACT #### [facility] [address] [place] [address] Dr. Gianni Deluna PROF 14(COMP METB)on 022 Albumin [Mass/Vol] 3.9 g/dL Normal 3.4-5.0 [facility] Comment on above: Performed By: #### L ACT #### [facility] [address] [place] [address] Dr. Gianni Deluna Albumin/Globulin [Mass ratio] 1.0 {ratio} Normal [facility] Comment on above: Performed By: #### L ACT #### [facility] [address] [place] [address] Dr. Gianni Deluna ALP [Catalytic activity/Vol] 127 U/L Critically high 46-116 [facility] Comment on above: Performed By: #### L ACT #### [facility] [address] [place] [address] Dr. Gianni Deluna ALT [Catalytic activity/Vol] 27 U/L Normal 16-63 [facility] Comment on above: Performed By: #### L ACT #### [facility] [address] [place] [address] Dr. Gianni Deluna Anion gap [Moles/Vol] 15.9 mmol/L Normal [facility] Comment on above: Performed By: #### L ACT #### [facility] [address] [place] [address] Dr. Gianni Deluna AST [Catalytic activity/Vol] 27 U/L Normal 15-37 [facility] Comment on above: Performed By: #### L ACT #### [facility] [address] [address] [address] Gianni Deluna Bilirubin [Mass/Vol] 0.9 mg/dL Normal 0.2-1.0 [facility] Comment on above: Performed By: #### L ACT #### [facility] [address] [address] [address] Gianni Deluna Calcium [Mass/Vol] 8.9 mg/dL Normal 8.5-10.1 [facility] Comment on above: Performed By: #### L ACT #### [facility] [address] [address] [address] Gianni Deluna Chloride [Moles/Vol] 103 mmol/L Normal 98-107 [facility] Comment on above: Performed By: #### L ACT #### [facility] [address] [address] [address] Gianni Deluna CO2 [Moles/Vol] 24.2 mmol/L Normal 21.0-32.0 [facility] Comment on above: Performed By: #### L ACT #### [facility] [address] [address] [address] Gianni Deluna Creatinine [Mass/Vol] 1.27 mg/dL Normal 0.70-1.30 [facility] Comment on above: Performed By: #### L ACT #### [facility] [address] [address] [address] Gianni Deluna EGFR-AF CUBAN >60 Normal >=60 [facility] Comment on above: Performed By: #### L ACT #### [facility] [address] [address] [address] Gianni Deluna EGFR-NON AF CUBAN 56 mL/min/1.73m2 Critically low >=60 [facility] Comment on above: Performed By: #### L ACT #### [facility] [address] [address] [address] Gianni Deluna Globulin (S) [Mass/Vol] 3.9 g/dL Normal [facility] Comment on above: Performed By: #### L ACT #### [facility] [address] [address] [address] Gianni Deluna Glucose [Mass/Vol] 145 mg/dL Critically high 74-106 [facility] Comment on above: Performed By: #### L ACT #### [facility] [address] [address] [address] Gianni Deluna Potassium [Moles/Vol] 4.1 mmol/L Normal 3.5-5.1 [facility] Comment on above: Performed By: #### L ACT #### [facility] [address] [address] [address] Gianni Deluna Protein [Mass/Vol] 7.8 g/dL Normal 6.4-8.2 [facility] Comment on above: Performed By: #### L ACT #### [facility] [address] [address] [address] Gianni Deluna Sodium [Moles/Vol] 139 mmol/L Normal 136-145 [facility] Comment on above: Performed By: #### L ACT #### [facility] [address] [address] [address] Gianni Deluna Urea nitrogen [Mass/Vol] 22.0 mg/dL Critically high 7.0-18.0 [facility] Comment on above: Performed By: #### L ACT #### [facility] [address] [address] [address] Gianni Deluna Urea nitrogen/Creatinine [Mass ratio] 17.3 mg/mg Normal [facility] Comment on above: Performed By: #### L ACT #### [facility] [address] [address] [address] Gianni Deluna XR ABD FLAT UP_PA [...] by: JAIMIE COOPER Date: 2022-04-20 21:58 Normal [facility] US RICHELLE DOP LEG LTon [...] LAWANDA VEE Date: 2022-03-18 13:25 Normal [facility] US RICHELLE DOP LEG LTon 12-08-19 22 US RICHELLE DOP LEG LT EXAM: US [...] ANTONI JOLLEY Date: 2021-12-06 22:57 Normal [facility] Progress note 07-08-2023 Note Date & Type Note Facility 07-08-2023 Note Cardiovascular Medic ine [facility] [facility] SUBJECTIVE Chief Complaint Patient presents with [...] Final Atrial Rate 06/29/2023 47 BPM Final ND Interval 06/29/2023 154 ms Final QRS DURATION 06/29/2023 82 ms Final QT Interval 06/29/2023 482 ms Final QTC CALCULATION(BAZETT) 06/29/2023 426 ms Final P [place] 06/29/2023 16 degrees Final R-[place] 06/29/2023 55 degrees Final T Wave [place] 06/29/2023 41 degrees Final No results found for: EXTCMP, BMPR1A, CBCDIF, BNP, BNP, LASAP, RED Testing/Procedures: No echocardiogram results found for the past 14 days No echocardiogram results found for the past 12 months Encounter Date: 06/29/23 ECG 12 lead Result Value Ventricular Rate 47 Atrial Rate 47 ND Interval 154 QR (more content not included)... [facility] Progress note 07-08-2023 Note Date & Type [...] All other systems reviewed and are negative. [facility] Progress note 06-29-2023 Note Date & Type [...] inhibitor Follow-up with Dr. Murillo in the [place] office in the next 2 to 4 weeks PROCEDURES: Ultrasound-guided access to the right common femoral artery, limited femoral angiography, ultrasound-guided access to the right common femoral vein, right heart catheterization, bilateral selective coronary angiography, placement of a 6 [place] Mynx scraper meat closure device METHODS: After risks, benefits, and [...] micropuncture kit was upsized to a 6 [place] 11 cm sheath. Angiography via the sheath [...] procedure. All catheters were removed. A 5 [place] Mynx closure device was deployed per protocol [...] device. INDICATIONS: Preoperative evaluation, coronary artery disease. [facility] Progress note 05-20-2023 Note Date & Type Note Facility 05-20-2023 Note [facility] Card[facility] Clinic Note Chief Complaint: New patient here to establish care. Ref from Dr. Archer for surgery clearance. He has hx of CAD and previously followed with [facility] back in 2014. He has upcoming [...] at the [facility] cardi[facility]acic [facility]. It was elected to continue [...] seen at [facility]; single-vessel coronary artery disease with a preserved [...] LAD. This wo (more content not included)... [facility] Clinical Note 05-13-2023 Note Date & Type [...] 10 mg Tab (more content not included)... [facility] Comment on above: Result Comment: Elec [...] and content) DATE CREATED AUTHOR 11/21/2022 [facility] DATE CREATED AUTHOR AUTHOR'S ORGANIZ ATION 07/10/2023 [facility] DATE CREATED AUTHOR AUTHOR'S ORGANIZ ATION 11/03/2023 [facility] DATE CREATED AUTHOR AUTHOR'S ORGANIZ ATION 12/07/2023 [facility] FOR RECORDS PERTAINING TO PATIENTS WHO ARE [...] BE BASED ON THE PRIMARY CLINICAL RECORDS. [facility]. provides no warranty or guarantee of the accuracy or completeness of information in this document.
--- NOTE | 2024-01-14 19:05 | US_ITS ---
The [address] [address] Patient Name: UMM TAI MRN: [id number] date: 1955 Sex: M Assigned Patient Location: US Current Patient Location: Accession/Order Number: [id number] Exam Date: 01/14/2024 19:07 Report Date: 01/15/2024 06:28 At the request of: EVENS GIANG Procedure: US venous doppler LE BI EXAMINATION: US venous doppler LE BI HISTORY: EDEMA R60.9 COMPARISON: No relevant comparison available. FINDINGS: REGION: Right and left lower extremities THROMBI: None. COMPRESSIBILITY: Normal compressibility. FLOW: Normal waveform and antegrade flow between 5 and 20 cm/s. OTHER: None. US/US venous doppler LE BI IMPRESSION: 1. No deep vein thrombus within the right or left lower extremity. Electronically authenticated by: PA CROW Date: 01/15/2024 06:28
== END 2024-01-14 17:57 | disposition home or self-care (01) ==
LOC: US 17:56
PROVIDERS: PCP Family Medicine; Visit Provider Family Medicine
DX: R60.0 Localized edema (principal); M79.604 Pain in right leg; M79.605 Pain in left leg
CPT/HCPCS: 93970

== ENCOUNTER 2024-09-20 08:01 | Outpatient (OUT) | payer MEDICARE, SELFPAY ==
--- OUTSIDE RECORDS SUMMARY | 2024-09-20 08:19 | XMS_ITS | CCD ---
Author Organization [facility] Care Team Providers Care Fence Setter Name Role Phone MADAIY ., DR HORNER [...] HORNER Consulting Unavailable ANTONI JOLLEY Consulting Unavailable MADAIY ., DR HORNER Primary Care Unavailable LEXIS [...] Unavailable Gianni MUÑOZ, Evens Benavidez Attending Unavaila Pramod Garcia Attending Unavailable Unavailable Primary Care Provider UnavailORA Segal Attending Unavailable DAXA RAMÍREZ Attending Unavailable Allergies Allergy Classification Reported Allergen(s) Allergy Type Date of Onset Reaction(s) Facility (3 sources) Penicillins; 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: [PENICILLINS] Drug allergy (disorder) 5 [facility] Repository (4 sources) amLODIPine; 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: [AMLODIPINE] Drug Allergy 3 GI intolerance [facility] Repository (5 sources) HYDROcodone; 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: [HYDROCODONE] Drug Allergy 5 Unknown [facility] Repository (4 sources) nabumetone; 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: [NABUMETONE] Drug Allergy 5 Other, Unknown [facility] Repository (1 source) nabumetone; 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: [Relafen] Drug Allergy [facility] Repository (3 sources) Penicillins Drug Intolerance 5 Unknown, Shortness of breath, Other [facility] Medications Current Medications Medication Drug Class(es) Dates Sig (Normalized) Sig (Original) aspirin 325 mg oral tablet (4 sources) Platelet Aggregation Inhibitor, Nonsteroidal Anti-inflammatory Drug Start: 09-07-2024 take 1 tablet by mouth once daily Aspirin 325 mg tablet Active 325 MG PO Daily September 07, 2024 12:00am aspirin 325 MG t ablet 1 (one) time each day at the same time. Active atorvastatin 40 mg oral tablet (4 sources) HMG-CoA Reductase Inhibitor Start: 09-07-2024 take 1 tablet by mouth once daily Atorvastatin 40 mg tablet Active 40 MG PO Daily September 07, 2024 12:00am Start: 11-26-2022 atorvastatin ( Lipitor) 40 MG tablet 1 (one) time each day at the same time. 11/26/2022 Active carvedilol 12.5 mg oral tablet (4 sources) alpha-Adrenergic J Luis, beta-Adrenergic J Luis Start: 09-07-2024 take 1 tablet by mouth twice daily at mealtime Carvedilol 12.5 mg tablet Active 12.5 MG PO Twice daily September 07, 2024 12:00am must administer with a meal/food Start: 05-21-2023 carvedilol (Co reg) 25 MG tablet every 12 (twelve) hours. 05/21/2023 Active celecoxib 100 mg oral capsule (3 sources) Nonsteroidal Anti-inflammatory Drug Start: 09-07-2024 take 1 capsule by mouth twice daily Celecoxib 100 mg capsule Active 100 MG PO Twice daily September 07, 2024 12:00am Start: 06-07-2024 take 1 capsule by [facility] in the morning celecoxib (CeleBREX) 100 MG capsule Take 100 mg by mouth in the morning and 100 mg before bedtime. 06/07/2024 Active furosemide 20 mg oral tablet (1 source) Loop Diuretic Start: 09-07-2024 take 1 tablet by mouth once daily Furosemide 20 mg tablet Active 20 MG PO Daily September 07, 2024 12:00am lansoprazole 15 mg delayed release oral capsule (4 sources) Proton Pump Inhibitor Start: 09-07-2024 take 1 capsule by mouth once daily Lansoprazole 15 mg capsule,delayed release(DR/EC) Active 15 MG PO Daily September 07, 2024 12:00am lansoprazole (Pr evacid) [address] capsule Take 15 mg by mouth. Active levothyroxine sodium 0.05 mg oral tablet (4 sources) l-Thyroxine Start: 09-07-2024 take 1 tablet by mouth once daily Levothyroxine 50 mcg tablet Active 50 MCG PO Daily September 07, 2024 12:00am Start: 05-04-2023 Synthroid 50 M CG tablet 1 (one) time each day at the same time. 05/04/2023 Active mupirocin 20 mg/ml topical cream (1 source) RNA Synthetase Inhibitor Antibacterial Start: 09-07-2024 Mupirocin Calcium 2 % cream Active 1 APPLIC TOPICAL Twice daily September 07, 2024 12:00am nitroglycerin 0.4 mg sublingual tablet (4 sources) Nitrate Vasodilator Start: 09-07-2024 Nitroglyce rin 0.4 mg tablet, sublingual Active 0.4 MG SUBLINGUAL Q5M as needed September 07, 2024 12:00am do not exceed 3 doses per episode Start: 05-04-2023 nitroglycerin (Nitrostat) 0.4 MG SL tablet as directed Sublingual 05/04/2023 Active 12 hr ranolazine 500 mg extended release oral tablet (4 sources) Anti-anginal Start: 09-07-2024 take 1 tablet by mouth twice daily Ranolazine 500 mg tablet extended release 12 hr Active 500 MG PO Twice daily September 07, 2024 12:00am Start: 05-04-2023 ranolazine (Ra nexa) 500 MG 12 hr tablet TAKE 1 TABLET TWICE A DAY for 90 05/04/2023 Active tiZANidine 4 mg oral tablet (1 source) Central alpha-2 Adrenergic Agonist Start: 09-07-2024 take 1 tablet by mouth once daily at bedtime Tizanidine 4 mg tablet Active 4 MG PO Daily at bedtime September 07, 2024 12:00am triamcinolone acetonide 1 mg/ml topical cream (1 source) Corticosteroid Start: 09-07-2024 Triamcinolone Acetonide 0.1 % cream Active 1 APPLIC TOPICAL Daily September 07, 2024 12:00am zolpidem tartrate 10 mg oral tablet (4 sources) gamma-Aminobutyric Acid-ergic Agonist Start: 09-07-2024 take 1 tablet by mouth once daily at bedtime Zolpidem 10 mg tablet Active 10 MG PO Daily at bedtime September 07, 2024 12:00am Start: 03-06-2023 Ambien 10 MG t ablet 1 (one) time each day at the same time. 03/06/2023 Active Problems Active Problems Problem Classification Problem Date Documented Date Episodic/Chronic Coronary atherosclerosis and other heart disease (4 sources) Atherosclerotic heart disease of [place] coronary artery without angina pectoris; 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: [Unstable angina] Onset: 04-24-2022 Chronic Disorders of lipid metabolism (2 sources) Hyperlipidemia, unspecified; 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: [Hypercholesterolemia] Onset: 06-06-2022 09-07-2024 Chronic Diverticulosis and diverticulitis (1 source) Diverticulitis of large intestine without perforation or abscess without bleeding; 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: [DVTRCLI LG INT NO PERF/ABSC W/O BL] Onset: 04-24-2022 Chronic Esophageal disorders (1 source) Gastroesophageal reflux disease; 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: [Gastro-esophageal reflux disease without esophagitis] 09-07-2024 Chronic Essential hypertension (2 sources) Essential (primary) hypertension; 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: [Hypertensive disorder] Onset: 06-06-2022 09-07-2024 Chronic Gout and other crystal arthropathies (1 source) Gout, unspecified; 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: [GOUT UNSPECIFIED] Onset: 06-06-2022 Chronic Neoplasms of unspecified nature or uncertain behavior (2 sources) Neoplastic disease; 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: [Neoplasm of unspecified behavior of bone, soft tissue, and skin] 06-09-2024 Episodic Nonspecific chest pain (6 sources) Chest pain, unspecified; 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: [Other chest pain] Onset: 04-20-2022 Episodic Other and unspecified benign neoplasm (2 sources) Melanocytic nevus of trunk; 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: [Melanocytic nevi of trunk] 06-09-2024 Episodic Other connective tissue disease (6 sources) [...] malignant neoplasm of rectum] Onset: 06-06-2022 Episodic Other skin disorders (2 sources) Seborrheic keratosis; 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: [Other seborrheic keratosis] 06-09-2024 Episodic Other skin disorders (2 sources) Lentiginosis; 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: [Other melanin hyperpigmentation] 06-09-2024 Episodic Other skin disorders (2 sources) Actinic keratosis; 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: [Actinic keratosis] 06-09-2024 Episodic Other skin disorders (1 source) Eruption; 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: [Rash and other nonspecific skin eruption] 09-07-2024 Episodic Residual codes; unclassified (1 source) Insomnia; 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: [Insomnia, unspecified] 09-07-2024 Episodic Thyroid disorders (1 source) Hypothyroidism; 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: [Hypothyroidism, unspecified] 09-07-2024 Chronic Unclassified (1 source) CONTACT W/AND (SUSP) EXPOS [...] 04-24-2022 Episodic Other aftercare (1 source) 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; 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: [[facility] CURRENT USE OF ASPIRIN] Onset: 04-24-2022 Episodic Phlebitis; thrombophlebitis and thromboembolism (6 sources) Personal history of other venous thrombosis and embolism; 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: [Embolism and thrombosis of superficial veins of left lower extremity] Onset: 12-11-2021 Episodic Spondylosis; intervertebral disc disorders; other back problems (4 sources) Radiculopathy, cervical region; 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: [RADICULOPATHY CERVICAL REGION] Onset: 08-13-2022 Episodic Results Test Name Value Interpretation Reference Range Facility No Panel Informationon 06-09 Type of biopsy: tangential Informed consent: discussed and consent obtained Informed consent comment: The risks and benefits of the biopsy were discussed. Risks include but are not limited to bleeding, infection, scarring, pain, and nerve damage. An opportunity to ask questions prior to the procedure was permitted and all questions were answered. Patient was prepped and draped in usual sterile fashion: area cleansed with alcohol. Anesthesia: the lesion was anesthetized in a standard fashion Anesthetic: 1% lidocaine w/ epinephrine 1-100,000 buffered w/ 8.4% NaHCO3 Instrument used: DermaBlade Hemostasis achieved with: electrodesiccation Outcome: patient tolerated procedure well Outcome comment: The specimen was placed in a prelabeled formalin container to be sent for pathology Post-procedure details: sterile dressing applied and wound care instructions given Post-procedure details comment: Emphasized need to contact clinic for any signs of infection, uncontrollable bleeding, or complications. Dressing type: bandage Additional details: Photo taken Amount of lidocaine used: 0.6 cc [facility] ED Note-Physicianon 12-07-19 24 ED Note-Physician [id number]#1.0 0TIFF Normal [facility] Lab Reportson 12-07-2023 Lab Reports [id number]#1.0 0TIFF Normal [facility] Lab Reports [id number] 0TIFF [facility] Physician Referralon 024 Physician Referral [id number]#1.0 0TIFF [facility] RAD - CT Reporton 12-07-2023 RAD - CT Report [id number] 0TIFF [facility] Physician Referralon 024 Physician Referral [id number]#1.0 0TIFF [facility] 37on 07-08-2023 37 *Take lasix for 2 da ys then as needed *Limit salt/sodium intake Normal [facility] Office Visiton 07-08-2023 Follow-up visit [id number] Chung Denton 1955 M Date Provider Department Center 07/08/2023 Kevin-BLAYNE DAILY CARD [facility] Family History Problem Relation Age of Onset Heart attack Paternal Grandfather Family Status - Relation Status Age at Paternal Grandfather Level of Service:84709 [place] OFFICE/OUTPATIENT ESTABLISHED MOD MDM 30-39 MIN Reason for Visit and Comments: Edema [[id number]] Normal [facility] ANEAbel 06-29-2023 ANES -- Attestation signed by Eliane Soto MD at 06/29/2023 9:56 AM Eliane Soto MD, MPH, FACC, [facility], [facility] Interventional Cardiology Pager Email: [email or web address] Patient: Donnie Denton Procedure Information Date/Time: 06/29/23 1030 Procedures: Coronary angiography (Bilateral) - per Maria G in pre-cert at [facility], this has already been authorized thru Aug 2023 - right femoral approach Right heart cath Location: [facility] HARBOR BOAT PILOT 3 / [facility] (Cath) Providers: Eliane Soto [...] fellow and attending. Additional Equipment Requests Normal [facility] HPon 06-29-2023 -- Attestation signed by Eliane Soto MD at 06/29/2023 9:57 AM Eliane Soto MD, MPH, FACC, [facility], [facility] Interventional Cardiology Pager Email: [email or web address] History Of Present Illness Donnie [...] He was evaluated by cardiothoracic surgery at [facility] and elected to pursue medical management [...] treated since 2014. Meaghan Mukherjee DO, MPH Bicycle Inspector [facility] NURSNOTEjohn 06-29-2023 NURSNOTE RN educated pt on d/ c instructions. RN encouraged pt to voice any questions or concerns. Pt verbalizes no questions or concerns at this time. Normal [facility] Orders Onlyon 06-17-2023 Orders Only [id number] Chung Denton 1955 M Date Provider Department Center 06/17/2023 Avi-DEIRDRE RIDLEY VALERIANO Robb Family History Problem Relation Age of Onset Heart attack Paternal Grandfather Family Status - Relation Status Age at Paternal Grandfather [facility] Letter (Out)on 05-26-2023 Letter (Out) [id number] Chung Denton 1955 M Date Provider Department Center 05/26/2023 None-None [facility] AUTH [place] [facility] Family History Problem Relation Age of Onset Heart attack Paternal Grandfather Family Status - Relation Status Age at Paternal Grandfather Normal [facility] Office Visiton 05-20-2023 Follow-up visit [id number] Chung Denton 1955 M Date Provider Department Center 05/20/2023 ELIANE ARREOLA VALERIANO [facility] Family History Problem Relation Age of Onset Heart attack Paternal Grandfather Family Status - Relation Status Age at Paternal Grandfather Level of Service:77812 [place] OFFICE/OUTPATIENT NEW HIGH MDM 60-74 MINUTES Normal [facility] Orders Onlyon 05-20-2023 Orders Only [id number] Chung Denton R 1955 M Date Provider Department Center 05/20/2023 HIMANSHU PRICE VALERIANO [facility] Family History Problem Relation Age of Onset Heart attack Paternal Grandfather Family Status - Relation Status Age at Paternal Grandfather Normal [facility] Facesheeton 05-14-2023 Facesheet [id number] D:127 Normal [facility] Ambulatory Visit Summaryon 0 05-13-2023 Ambulatory [...] Spondylosis of cervical spine Ureteral calculus Normal [facility] Physician Referralon 023 Physician Referral [id number] CD:127 Normal [facility] XR HIP RT 2 3V W [...] ANTONI PENALOZA Date: 2022-11-13 22:38 Normal [facility] XR LSPINE MIN 4 VIEWSon [...] paraspinous abnormality is seen. OTHER: Negative. IMPRESSION: [id number]-[id number] degenerative changes Electronically authenticated by: ANTONI TRACEY Date: 2022-11-14 07:58 Normal [facility] CREATININEon 11-11-2022 Creatinine [Mass/Vol] 1.04 mg/dL Normal 0.70-1.30 [facility] Comment on above: Performed By: #### C ASIF #### [facility] Laboratory [address] [place] [address] Dr. Gianni Deluna EGFR-AF SYRIAN >60 Normal >=60 [facility] Comment on above: Performed By: #### C ASIF #### [facility] [address] [place] [address] Dr. Gianni Deluna EGFR-NON AF SYRIAN >60 Normal >=60 [facility] Comment on above: Performed By: #### C ASIF #### [facility] [address] [place] [address] CHEST W CONon [...] CROW Date: 2022-11-11 11:29 Normal [facility] MRI CSPINE WO CONon 08-14-20 22 MRI [facility] CON EXAMINATION: MRI [facility] CON HISTORY: Cervical radiculopathy COMPARISON: No relevant [...] by: ANTONI TRACEY Date: 2022-08-14 09:19 Normal [facility] INSULINon 10-19-2022 Insulin 13.5 uIU/mL Normal 2.6-24.9 [facility] Comment on above: Performed By: #### L ACT #### [facility] [address] [address] [address] Gianni Deluna CBC AUTO DIFFon 06-03-2022 BASO # 0.1 103/ul Normal 0.0-0.1 [facility] Comment on above: Performed By: #### L ACT #### [facility] [address] [place] [address] Dr. Gianni Deluna Basophils/100 WBC (Bld) 1.2 % Normal 0.2-2.0 [facility] Comment on above: Performed By: #### L ACT #### [facility] [address] [place] [address] Dr. Gianni Deluna EO # 0.4 103/ul Normal 0.0-0.7 [facility] Comment on above: Performed By: #### L ACT #### [facility] [address] [place] [address] Dr. Gianni Deluna Eosinophils/100 WBC (Bld) 5.9 % Normal 0.9-7.0 [facility] Comment on above: Performed By: #### L ACT #### [facility] [address] [place] [address] Dr. Gianni Deluna Erythrocyte distribution width (RBC) [Ratio] 13.4 % Normal 11.0-15.0 [facility] Comment on above: Performed By: #### L ACT #### [facility] [address] [place] [address] Dr. Gianni Deluna Hematocrit (Bld) [Volume fraction] 39.6 % Critically low 42.0-54.0 [facility] Comment on above: Performed By: #### L ACT #### [facility] [address] [place] [address] Dr. Gianni Deluna Hemoglobin (Bld) [Mass/Vol] 12.8 g/dL Critically low 14.0-18.0 [facility] Comment on above: Performed By: #### L ACT #### [facility] [address] [address] [address] Gianni Deluna IG # 0.04 10e3/ul Critically high 0.00-0.03 [facility] Comment on above: Performed By: #### L ACT #### [facility] [address] [place] [address] Dr. iGanni Deluna IG % 0.7 % Critically high 0.0-0.5 [facility] Comment on above: Performed By: #### L ACT #### [facility] [address] [place] [address] Dr. Gianni Deluna LYMPH # 1.9 103/ul Normal 1.2-3.8 [facility] Comment on above: Performed By: #### L ACT #### [facility] [address] [place] [address] Dr. Gianni Deluna Lymphocytes/100 WBC (Bld) 31.7 % Normal 20.5-60.0 [facility] Comment on above: Performed By: #### L ACT #### [facility] [address] [place] [address] Dr. Gianni Deluna MANUAL DIFF REQ NO Normal [facility] Comment on above: Performed By: #### L ACT #### [facility] [address] [place] [address] Dr. Gianni Deluna MCH (RBC) [Entitic mass] 30.2 pg Normal 25.9-34.0 [facility] Comment on above: Performed By: #### L ACT #### [facility] [address] [place] [address] Dr. Gianni Deluna MCHC (RBC) [Mass/Vol] 32.3 g/dL Normal 29.9-35.2 [facility] Comment on above: Performed By: #### L ACT #### [facility] [address] [place] [address] Dr. Gianni Deluna MCV (RBC) [Entitic vol] 93.4 fL Normal 80.0-94.0 [facility] Comment on above: Performed By: #### L ACT #### [facility] [address] [place] [address] Dr. Gianni Deluna MONO # 0.7 103/ul Normal 0.3-0.8 [facility] Comment on above: Performed By: #### L ACT #### [facility] [address] [address] [address] Gianni Deluna Monocytes/100 WBC (Bld) 11.9 % Normal 1.7-12.0 [facility] Comment on above: Performed By: #### L ACT #### [facility] [address] [address] [address] Gianni Deluna NEUT # 2.9 103/ul Normal 1.4-6.5 [facility] Comment on above: Performed By: #### L ACT #### [facility] [address] [place] [address] Dr. Gianni Deluna Neutrophils/100 WBC (Bld) 48.6 % Normal 43.0-75.0 [facility] Comment on above: Performed By: #### L ACT #### [facility] [address] [place] [address] Dr. Gianni Deluna Platelet mean volume (Bld) [Entitic vol] 9.1 fL Critically low 9.5-13.5 [facility] Comment on above: Performed By: #### L ACT #### [facility] [address] [place] [address] Dr. Gianni Deluna PLT 168 103/ul Normal 150-450 [facility] Comment on above: Performed By: #### L ACT #### [facility] [address] [place] [address] Dr. Gianni Deluna RBC 4.24 106/ul Critically low 4.70-6.10 [facility] Comment on above: Performed By: #### L ACT #### [facility] [address] [place] [address] Dr. Gianni Deluna WBC 6.0 103/ul Normal 4.0-11.0 [facility] Comment on above: Performed By: #### L ACT #### [facility] [address] [place] [address] Dr. Gianni Deluna FREE THYROXINE INDEX T7on FTI 1.91 Normal 1.30-4.50 [facility] Comment on above: Performed By: #### L ACT #### [facility] [address] [place] [address] Dr. Gianni Deluna T3U 36.0 % Normal 33.0-40.0 [facility] Comment on above: Performed By: #### L ACT #### [facility] [address] [address] [address] Gianni Deluan T4 [Mass/Vol] 5.30 ug/dL Normal 4.50-12.10 [facility] Comment on above: Performed By: #### L ACT #### [facility] [address] [place] [address] Dr. Gianni Deluna GLYCOHEMOGLOBIN A1Con 2021 ADA RECOMMENDATION SEE BELOW Normal [facility] Comment on above: Result Comment: ADA RECOMMENDED LIMIT 4.0 - 6.0 ADA THERAPEUTIC TARGET < 7.0 ACTION SUGGESTED > 7.0 Performed By: #### D DIM #### [facility] [address] [place] [address] Dr. Gianni Deluna Glucose [Mass/Vol] 140 mg/dL Normal [facility] Comment on above: Performed By: #### D DIM #### [facility] [address] [place] [address] Dr. Gianni Deluna HbA1c (Bld) [Mass fraction] 6.5 % Critically high 4.5-6.2 [facility] Comment on above: Performed By: #### D DIM #### [facility] [address] [place] [address] Dr. Gianni Deluna LIPID PROFILEon 06-03-2022 CHOL-HDL RATIO NORM SEE BELOW Normal [facility] Comment on above: Result Comment: 3.3 - 4.4 LOW RISK 4.4 - 7.1 AVERAGE RISK 7.1 - 11.0 MODERATE RISK >11.0 HIGH RISK Performed By: #### T SH, T7, URIC, CMP, LIPID #### [facility] [address] [place] [address] Dr. Gianni Deluna Cholesterol [Mass/Vol] 104 mg/dL Normal <=200 [facility] Comment on above: Performed By: #### T SH, T7, URIC, CMP, LIPID #### [facility] [address] [address] [address] Gianni Deluna Cholesterol in HDL [Mass/Vol] 49 mg/dL Normal 40-60 [facility] Comment on above: Performed By: #### T SH, T7, URIC, CMP, LIPID #### [facility] [address] [address] [address] Gianni Deluna Cholesterol in LDL [Mass/Vol] 46.6 mg/dL Normal [facility] Comment on above: Performed By: #### T SH, T7, URIC, CMP, LIPID #### [facility] [address] [place] [address] Dr. Gianni Deluna Cholesterol.total/Ch olesterol in HDL [Mass ratio] 2.1 {ratio} Normal [facility] Comment on above: Performed By: #### T SH, T7, URIC, CMP, LIPID #### [facility] [address] [place] [address] Dr. Gianni Deluna HDL NORMAL > or = 60 mg/dl - LO W CARDIOVASCULAR RISK <40 mg/dl - HIGH CARDIOVASCULAR RISK Normal [facility] Comment on above: Performed By: #### T SH, T7, URIC, CMP, LIPID #### [facility] [address] [place] [address] Dr. Gianni Deluna LDL CALC NORMAL SEE BELOW Normal [facility] Comment on above: Result Comment: <100 mg/dl OPTIMAL 100 - 129 mg/dl NEAR OR ABOVE OPTIMAL 130 - 159 mg/dl BORDERLINE HIGH 160 - 189 mg/dl HIGH >190 mg/dl VERY HIGH Performed By: #### T SH, T7, URIC, CMP, LIPID #### [facility] [address] [place] [address] Dr. Gianni Deluna Triglyceride [Mass/Vol] 42 mg/dL Normal <=150 [facility] Comment on above: Performed By: #### T SH, T7, URIC, CMP, LIPID #### [facility] [address] [address] [address] Gianni Deluna VLDL CALC 8.4 mg/dL Normal [facility] Comment on above: Performed By: #### T SH, T7, URIC, CMP, LIPID #### [facility] [address] [place] [address] Dr. Gianni Deluna PROF 14(COMP METB)on 06-03- 022 Albumin [Mass/Vol] 2.9 g/dL Critically low 3.4-5.0 Th e [facility] Comment on above: Performed By: #### T SH, T7, URIC, CMP, LIPID #### [facility] [address] [place] [address] Dr. Gianni Deluna Albumin/Globulin [Mass ratio] 0.8 {ratio} Normal [facility] Comment on above: Performed By: #### T SH, T7, URIC, CMP, LIPID #### [facility] [address] [place] [address] Dr. Gianni Deluna ALP [Catalytic activity/Vol] 127 U/L Critically high 46-116 [facility] Comment on above: Performed By: #### T SH, T7, URIC, CMP, LIPID #### [facility] [address] [place] [address] Dr. Gianni Deluna ALT [Catalytic activity/Vol] 23 U/L Normal 16-63 [facility] Comment on above: Performed By: #### T SH, T7, URIC, CMP, LIPID #### [facility] [address] [place] [address] Dr. Gianni Deluna Anion gap [Moles/Vol] 8.4 mmol/L Normal [facility] Comment on above: Performed By: #### T SH, T7, URIC, CMP, LIPID #### [facility] [address] [place] [address] Dr. Gianni Deluna AST [Catalytic activity/Vol] 21 U/L Normal 15-37 [facility] Comment on above: Performed By: #### T SH, T7, URIC, CMP, LIPID #### [facility] [address] [place] [address] Dr. Gianni Deluna Bilirubin [Mass/Vol] 0.5 mg/dL Normal 0.2-1.0 [facility] Comment on above: Performed By: #### T SH, T7, URIC, CMP, LIPID #### [facility] [address] [address] [address] Gianni Deluna Calcium [Mass/Vol] 8.3 mg/dL Critically low 8.5-10.1 Th e [facility] Comment on above: Performed By: #### T SH, T7, URIC, CMP, LIPID #### [facility] [address] [place] [address] Dr. Gianni Deluna Chloride [Moles/Vol] 107 mmol/L Normal 98-107 [facility] Comment on above: Performed By: #### T SH, T7, URIC, CMP, LIPID #### [facility] [address] [place] [address] Dr. Gianni Deluna CO2 [Moles/Vol] 30.6 mmol/L Normal 21.0-32.0 [facility] Comment on above: Performed By: #### T SH, T7, URIC, CMP, LIPID #### [facility] [address] [place] [address] Dr. Gianni Deluna Creatinine [Mass/Vol] 0.93 mg/dL Normal 0.70-1.30 [facility] Comment on above: Performed By: #### T SH, T7, URIC, CMP, LIPID #### [facility] [address] [place] [address] Dr. Gianni Deluna EGFR-AF SYRIAN >60 Normal >=60 [facility] Comment on above: Performed By: #### T SH, T7, URIC, CMP, LIPID #### [facility] [address] [place] [address] Dr. Gianni Deluna EGFR-NON AF SYRIAN >60 Normal >=60 [facility] Comment on above: Performed By: #### T SH, T7, URIC, CMP, LIPID #### [facility] [address] [place] [address] Dr. Gianni Deluna Globulin (S) [Mass/Vol] 3.5 g/dL Normal [facility] Comment on above: Performed By: #### T SH, T7, URIC, CMP, LIPID #### [facility] [address] [address] [address] Gianni Deluna Glucose [Mass/Vol] 114 mg/dL Critically high 74-106 [facility] Comment on above: Performed By: #### T SH, T7, URIC, CMP, LIPID #### [facility] [address] [place] [address] Dr. Gianni Deluna Potassium [Moles/Vol] 4.0 mmol/L Normal 3.5-5.1 [facility] Comment on above: Performed By: #### T SH, T7, URIC, CMP, LIPID #### [facility] [address] [place] [address] Dr. Gianni Deluna Protein [Mass/Vol] 6.4 g/dL Normal 6.4-8.2 [facility] Comment on above: Performed By: #### T SH, T7, URIC, CMP, LIPID #### [facility] [address] [place] [address] Dr. Gianni Deluna Sodium [Moles/Vol] 142 mmol/L Normal 136-145 [facility] Comment on above: Performed By: #### T SH, T7, URIC, CMP, LIPID #### [facility] [address] [place] [address] Dr. Gianni Deluna Urea nitrogen [Mass/Vol] 11.0 mg/dL Normal 7.0-18.0 [facility] Comment on above: Performed By: #### T SH, T7, URIC, CMP, LIPID #### [facility] [address] [place] [address] Dr. Gianni Deluna Urea nitrogen/Creatinine [Mass ratio] 11.8 mg/mg Normal [facility] Comment on above: Performed By: #### T SH, T7, URIC, CMP, LIPID #### [facility] [address] [place] [address] Dr. Gianni Deluna TSHon 06-03-2022 TSH 0.814 uIU/mL Normal 0.358-3.740 [facility] Comment on above: Performed By: #### L ACT #### [facility] [address] [place] [address] Dr. Gianni Deluna URIC ACID SERUMon 06-03-2022 Urate [Mass/Vol] 5.2 mg/dL Normal 3.5-7.2 [facility] Comment on above: Performed By: #### T SH, T7, URIC, CMP, LIPID #### [facility] [address] [address] [address] Gianni Deluna CARDIAC ALEX 3-6on 2 CK [Catalytic activity/Vol] 82 U/L Normal 39-308 [facility] Comment on above: Performed By: #### L ACT #### [facility] [address] [address] [address] Gianni Deluna CK.MB [Mass/Vol] 2.40 ng/mL Normal <=3.60 [facility] Comment on above: Performed By: #### L ACT #### [facility] [address] [place] [address] Dr. Gianni Deluna HSTROP 8.6 pg/mL Normal 4.0-76.1 [facility] Comment on above: Result Comment: CUT- OFF POINTS HAVE BEEN ESTABLISHED BASED ON THE FOURTH UNIVERSAL DEFINITIONS OF MYOCARDIAL INFARCTION. THE UPPER REFERENCE LIMIT (URL) OF TROPONIN, DEFINED THE 99TH PERCENTILE OF cTnI DISTRIBUTION IN A REFERENCE POPULATION, HAS BEEN CONFIRMED THE DECISION THRESHOLD FOR PR DIAGNOSIS. Performed By: #### L ACT #### [facility] [address] [place] [address] ABD/PELV W CONon [...] COOPER Date: 2022-04-21 00:38 Normal [facility] LACTATE/LACTIC ACIDon 2021 Lactate [Moles/Vol] 2.2 mmol/L Critically high 0.4-1.9 [facility] Comment on above: Performed By: #### L ACT #### [facility] [address] [place] [address] Dr. Gianni Deluna AMYLASEon 04-20-2022 Amylase [Catalytic activity/Vol] 139 U/L Critically high 25-115 [facility] Comment on above: Performed By: #### L ACT #### [facility] [address] [address] [address] Gianni Deluna CARDIAC ALEX ADMITon 022 CK [Catalytic activity/Vol] 88 U/L Normal 39-308 [facility] Comment on above: Performed By: #### C MADM #### [facility] [address] [address] [address] Gianni Deluna CK.MB [Mass/Vol] 1.82 ng/mL Normal <=3.60 [facility] Comment on above: Performed By: #### C MADM #### [facility] [address] [address] [address] Gianni Deluna HSTROP 7.2 pg/mL Normal 4.0-76.1 [facility] Comment on above: Result Comment: CUT- OFF POINTS HAVE BEEN ESTABLISHED BASED ON THE FOURTH UNIVERSAL DEFINITIONS OF MYOCARDIAL INFARCTION. THE UPPER REFERENCE LIMIT (URL) OF TROPONIN, DEFINED THE 99TH PERCENTILE OF cTnI DISTRIBUTION IN A REFERENCE POPULATION, HAS BEEN CONFIRMED THE DECISION THRESHOLD FOR PR DIAGNOSIS. Performed By: #### C MADM #### [facility] [address] [address] [address] Gianni Deluna FILIBERTO 93 ng/mL Normal 16-96 [facility] Comment on above: Performed By: #### C MADM #### [facility] [address] [place] [address] Dr. Gianni Deluna CBC AUTO DIFFon 04-20-2022 BASO # 0.0 103/ul Normal 0.0-0.1 [facility] Comment on above: Performed By: #### C BC #### [facility] [address] [place] [address] Dr. Gianni Deluna Basophils/100 WBC (Bld) 0.3 % Normal 0.2-2.0 [facility] Comment on above: Performed By: #### C BC #### [facility] [address] [place] [address] Dr. Gianni Deluna EO # 0.0 103/ul Normal 0.0-0.7 [facility] Comment on above: Performed By: #### C BC #### [facility] [address] [place] [address] Dr. Gianni Deluna Eosinophils/100 WBC (Bld) 0.1 % Critically low 0.9-7.0 [facility] Comment on above: Performed By: #### C BC #### [facility] [address] [place] [address] Dr. Gianni Deluna Erythrocyte distribution width (RBC) [Ratio] 13.5 % Normal 11.0-15.0 [facility] Comment on above: Performed By: #### C BC #### [facility] [address] [place] [address] Dr. Gianni Deluna Hematocrit (Bld) [Volume fraction] 45.8 % Normal 42.0-54.0 [facility] Comment on above: Performed By: #### C BC #### [facility] [address] [place] [address] Dr. Gianni Deluna Hemoglobin (Bld) [Mass/Vol] 15.3 g/dL Normal 14.0-18.0 [facility] Comment on above: Performed By: #### C BC #### [facility] [address] [address] [address] Gianni Deluna IG # 0.05 10e3/ul Critically high 0.00-0.03 [facility] Comment on above: Performed By: #### C BC #### [facility] [address] [address] [address] Gianni Deluna IG % 0.5 % Normal 0.0-0.5 [facility] Comment on above: Performed By: #### C BC #### [facility] [address] [address] [address] Gianni Deluna LYMPH # 0.8 103/ul Critically low 1.2-3.8 [facility] Comment on above: Performed By: #### C BC #### [facility] [address] [place] [address] Dr. Gianni Deluna Lymphocytes/100 WBC (Bld) 7.7 % Critically low 20.5-60.0 [facility] Comment on above: Performed By: #### C BC #### [facility] [address] [place] [address] Dr. Gianni Deluna MANUAL DIFF REQ NO Normal [facility] Comment on above: Performed By: #### C BC #### [facility] [address] [place] [address] Dr. Gianni Deluna MCH (RBC) [Entitic mass] 30.4 pg Normal 25.9-34.0 [facility] Comment on above: Performed By: #### C BC #### [facility] [address] [place] [address] Dr. Gianni Deluna MCHC (RBC) [Mass/Vol] 33.4 g/dL Normal 29.9-35.2 [facility] Comment on above: Performed By: #### C BC #### [facility] [address] [place] [address] Dr. Gianni Deluna MCV (RBC) [Entitic vol] 90.9 fL Normal 80.0-94.0 [facility] Comment on above: Performed By: #### C BC #### [facility] [address] [id number] [address] Gianni Deluna MONO # 0.4 103/ul Normal 0.3-0.8 [facility] Comment on above: Performed By: #### C BC #### [facility] [address] [address] [address] Gianni Deluna Monocytes/100 WBC (Bld) 3.3 % Normal 1.7-12.0 [facility] Comment on above: Performed By: #### C BC #### [facility] [address] [address] [address] Gianni Deluna NEUT # 9.7 103/ul Critically high 1.4-6.5 [facility] Comment on above: Performed By: #### C BC #### [facility] [address] [place] [address] Dr. Gianni Deluna Neutrophils/100 WBC (Bld) 88.1 % Critically high 43.0-75.0 [facility] Comment on above: Performed By: #### C BC #### [facility] [address] [place] [address] Dr. Gianni Deluna Platelet mean volume (Bld) [Entitic vol] 8.9 fL Critically low 9.5-13.5 [facility] Comment on above: Performed By: #### C BC #### [facility] [address] [place], [place] [id number] Dr. Gianni Deluna PLT 198 103/ul Normal 150-450 [facility] Comment on above: Performed By: #### C BC #### [facility] [address] [place] [address] Dr. Gianni Deluna RBC 5.04 106/ul Normal 4.70-6.10 [facility] Comment on above: Performed By: #### C BC #### [facility] [address] [place] [address] Dr. Gianni Deluna WBC 11.0 103/ul Normal 4.0-11.0 [facility] Comment on above: Performed By: #### C BC #### [facility] [address] [place] [address] Dr. Gianni Deluna Covid-19 PCR (CVDTB)on SARS-CoV-2 (COVID-19) RNA NICHOLE+probe Ql (Unsp spec) Not detected Normal NOT DETECTED [facility] Comment on above: Result Comment: [...] for this test is supported by the [place] of [employer] and Human Service's declaration that [...] used). Performed By: #### C VDTBH #### [facility] [address] [place] [address] Dr. Gianni Deluna D-DIMERon 04-20-2022 D-DIMER 0.37 mg/L FEU Normal <=0.59 [facility] Comment on above: Performed By: #### D DIM #### [facility] [address] [place] [address] Dr. Gianni Deluna D-DIMER COMMENTS SEE BELOW Normal [facility] Comment on above: Result Comment: Incr [...] hospitalization. Performed By: #### D DIM #### [facility] [address] [place] [address] Dr. Gianni Deluna LACTATE/LACTIC ACIDon 2021 Lactate [Moles/Vol] 2.3 mmol/L Critically high 0.4-1.9 [facility] Comment on above: Performed By: #### L ACT #### [facility] [address] [address] [address] Gianni Deluna LIPASEon 04-20-2022 Lipase [Catalytic activity/Vol] 48.0 U/L Critically low 73.0-393.0 [facility] Comment on above: Performed By: #### L ACT #### [facility] [address] [address] [address] Gianni Deluna PROF 14(COMP METB)on 022 Albumin [Mass/Vol] 3.9 g/dL Normal 3.4-5.0 [facility] Comment on above: Performed By: #### L ACT #### [facility] [address] [place] [address] Dr. Gianni Deluna Albumin/Globulin [Mass ratio] 1.0 {ratio} Normal [facility] Comment on above: Performed By: #### L ACT #### [facility] [address] [address] [address] Gianni Deluna ALP [Catalytic activity/Vol] 127 U/L Critically high 46-116 [facility] Comment on above: Performed By: #### L ACT #### [facility] [address] [address] [address] Gianni Deluna ALT [Catalytic activity/Vol] 27 U/L Normal 16-63 [facility] Comment on above: Performed By: #### L ACT #### [facility] [address] [address] [address] Gianni Deluna Anion gap [Moles/Vol] 15.9 mmol/L Normal [facility] Comment on above: Performed By: #### L ACT #### [facility] [address] [address] [address] Gianni Deluna AST [Catalytic activity/Vol] 27 U/L Normal 15-37 [facility] Comment on above: Performed By: #### L ACT #### [facility] [address] [address] [address] Gianni Deluna Bilirubin [Mass/Vol] 0.9 mg/dL Normal 0.2-1.0 [facility] Comment on above: Performed By: #### L ACT #### [facility] [address] [address] [address] Gianni Deluna Calcium [Mass/Vol] 8.9 mg/dL Normal 8.5-10.1 [facility] Comment on above: Performed By: #### L ACT #### [facility] [address] [address] [address] Gianni Deluna Chloride [Moles/Vol] 103 mmol/L Normal 98-107 [facility] Comment on above: Performed By: #### L ACT #### [facility] [address] [place] [address] Dr. Gianni Deluna CO2 [Moles/Vol] 24.2 mmol/L Normal 21.0-32.0 [facility] Comment on above: Performed By: #### L ACT #### [facility] [address] [address] [address] Gianni Deluna Creatinine [Mass/Vol] 1.27 mg/dL Normal 0.70-1.30 [facility] Comment on above: Performed By: #### L ACT #### [facility] [address] [place] [address] Dr. Gianni Deluna EGFR-AF SYRIAN >60 Normal >=60 [facility] Comment on above: Performed By: #### L ACT #### [facility] [address] [address] [address] Gianni Deluna EGFR-NON AF SYRIAN 56 mL/min/1.73m2 Critically low >=60 [facility] Comment on above: Performed By: #### L ACT #### [facility] [address] [place] [address] Dr. Gianni Deluna Globulin (S) [Mass/Vol] 3.9 g/dL Normal [facility] Comment on above: Performed By: #### L ACT #### [facility] [address] [address] [address] Gianni Deluna Glucose [Mass/Vol] 145 mg/dL Critically high 74-106 [facility] Comment on above: Performed By: #### L ACT #### [facility] [address] [address] [address] Gianni Deluna Potassium [Moles/Vol] 4.1 mmol/L Normal 3.5-5.1 [facility] Comment on above: Performed By: #### L ACT #### [facility] [address] [address] [address] Gianni Deluna Protein [Mass/Vol] 7.8 g/dL Normal 6.4-8.2 [facility] Comment on above: Performed By: #### L ACT #### [facility] [address] [address] [address] Gianni Deluna Sodium [Moles/Vol] 139 mmol/L Normal 136-145 [facility] Comment on above: Performed By: #### L ACT #### [facility] [address] [address] [address] Gianni Deluna Urea nitrogen [Mass/Vol] 22.0 mg/dL Critically high 7.0-18.0 [facility] Comment on above: Performed By: #### L ACT #### [facility] [address] [address] [address] Gianni Deluna Urea nitrogen/Creatinine [Mass ratio] 17.3 mg/mg Normal [facility] Comment on above: Performed By: #### L ACT #### [facility] [address] [address] [address] Gianni Deluna XR ABD FLAT UP_PA [...] by: JAIMIE COOPER Date: 2022-04-20 21:58 Normal [facility] US RICHELLE DOP LEG LTon [...] LAWANDA VEE Date: 2022-03-18 13:25 Normal [facility] US RICHELLE DOP LEG LTon [...] by: ANTONI JOLLEY Date: 2021-12-06 22:57 Normal [facility] Vital Signs Date Time Vital Sign Value Performing Clinician Olivieri lity 09-07-2024 17:32-0500 Diastolic blood pressure 78 mm[Hg] [facility] 09-07-2024 17:32-0500 Systolic blood pressure 180 mm[Hg] [facility] 09-07-2024 17:14-0500 Body height 172.72 cm [facility] 09-07-2024 17:14-0500 Body mass index (BMI) [Ratio] 19 kg/m2 [facility] 09-07-2024 17:14-0500 Body temperature 98.5 [degF] [facility] 09-07-2024 17:14-0500 Body weight 56.69 kg [facility] [facility] 09-07-2024 17:14-0500 Heart rate 49 /min [facility] 09-07-2024 17:14-0500 Respiratory rate 18 /min [facility] 09-07-2024 17:14-0500 SaO2% (BldA) [Mass fraction] 99 % [facility] Encounters Encounter Date Encounter Type Care Provider Facility Start: 09-07-2024 End: 09-07-2024 ambulatory [facility] Work Phone: Start: 09-07-2024 End: 09-07-2024 Patient encounter procedure [facility] Work Phone: Start: 06-09-2024 End: 06-09-2024 Bamboo flowsheet Ora Becker PEWTER FABRICATOR-SUPPLY CHAIN INTERN Work Phone: [facility] Start: 06-09-2024 End: 06-09-2024 Bamboo flowsheet Ora Becker PEWTER FABRICATOR-SUPPLY CHAIN INTERN Work Phone: [facility] Start: 06-09-2024 End: 06-09-2024 Office outpatient visit 15 minutes Ora Becker PEWTER FABRICATOR-SUPPLY CHAIN INTERN Work Phone: [facility] Comment on above: Melanocytic nevus of trunk; Seborrheic keratosis; Lentigines; Actinic keratosis; Neoplasm of unspecified behavior of bone, soft tissue, and skin Start: 06-09-2024 End: 06-09-2024 ambulatory ORA BECKER Not Available Start: 10-26-2023 End: 10-27-2023 ambulatory Stefany Ballard MD Facility:[facility] Start: 09-21-2023 End: 09-22-2023 ambulatory Stefany Ballard MD Facility:[facility] Start: 08-31-2023 End: 09-01-2023 ambulatory Stefany Ballard MD Facility:[facility] Start: 08-05-2023 End: 08-05-2023 ambulatory DAXA RAMÍREZ Not Available Start: 07-17-2023 ambulatory Evens Archer MD Facility:[facility] Start: 07-08-2023 End: 07-08-2023 ambulatory [facility] Start: 06-29-2023 End: 06-29-2023 ambulatory [facility] Start: 06-29-2023 End: 06-29-2023 Encounter for other preprocedural examination [facility] Start: 06-17-2023 Encounter for other preprocedural examination [facility] Start: 05-20-2023 End: 05-20-2023 ambulatory [facility] Start: 05-13-2023 End: 05-14-2023 ambulatory Pramod HAYWARD [...] Date Procedure Procedure Detail Performing Clinician Start: 06-09-2024 SKIN / NAIL BIOPSY Shirajuan Becker PEWTER FABRICATOR-SUPPLY CHAIN INTERN Work Phone: Start: 06-09-2024 CRYOTHERAPY SKIN LESION Ora Becker PEWTER FABRICATOR-SUPPLY CHAIN INTERN Work Phone: Start: 06-03-[address] FRANCO ARCHER . Comment on above: Performed By: #### P [facility] #### [facility] [address] [place] [address] Dr. Gianni Deluna Plan of Treatment Date Care Activity Detail Author Start: 06-12-2025 End: 06-12-2025 Patient encounter procedure 06/12/2025 9:55 AM EDT Office Visit [facility] [address] [place] [address] Ora Becker, PEWTER FABRICATOR-SUPPLY CHAIN INTERN [address] [place] [address] [facility] Start: 06-09-2024 End: 06-09-2024 Patient encounter procedure 06/09/2024 10:55 AM EDT Office Visit [facility] [address] [place] [address] Ora Becker, PEWTER FABRICATOR-SUPPLY CHAIN INTERN [address] [place] [address] Arrived [facility] Comment on above: Arrived Dermatopathology exam Dermatopat hology exam Pathology and Cytology Timed Neoplasm of unspecified behavior of bone, soft tissue, and skin Release Upon Ordering for 1 Occurrences starting 06/09/2024 [facility] Work Phone: Comment on above: Release Upon Ordering for 1 Occurrences starting 06/09/2024 Payers Date Payer Category Payer Unknown 2021 Medicare (Managed Care) [employer] [id number] 2014 Unknown [id number] 1959 Self-pay [id number] 1959 Unknown [id number] 1954 Unknown [id number] 2.16.840.1.215926.3.579. 2.59 1954 Unknown [id number] 2.16.840.1.581746.3.579. 2.59 1954 Unknown [id number] 2.16.840.1.375563.3.579. 2.593 1954 Unknown [id number] 2.16.840.1.531308.3.579. 2.59 1954 Unknown [id number] 2.16.840.1.693919.3.579. 2.59 1954 Unknown [id number] 2.16.840.1.604952.3.579. 2.59 1954 Unknown [id number] 2.16.840.1.639896.3.579. 2.593 1954 Unknown [id number] 2.16.840.1.711898.3.579. 2.59 1954 Unknown [id number] 2.16.840.1.017619.3.579. 2.196 1954 Unknown [id number] 2.16.840.1.086543.3.579. 2.196 1954 Unknown [id number] 2.16.840.1.062814.3.579. 2.196 1954 Unknown [id number] 2.16.840.1.792226.3.579. 2.727 1954 Unknown [id number] 2.16.840.1.476382.3.579. 2.727 1954 Unknown [id number] 2.16.840.1.319946.3.579. 2.727 1954 Unknown [id number] 2.16.840.1.397135.3.579. 2.1259 1954 Unknown [id number] 2.16.840.1.046451.3.579. 2.1259 Social History Date Type Detail Facility Start: 08-05-2023 End: 09-07-2024 Tobacco smoking status ARIS Never smoked tobacco [facility] Start: 08-05-2023 Tobacco use and exposure Smokeless tobacco non-user [facility] Start: 08-05-2023 End: 06-09-2024 History of Social function [facility] Start: 08-05-2023 End: 06-09-2024 Tobacco use panel [facility] Start: 1955 Sex assigned at Not on file [facility] Start: 06-09-2024 Alcoholic beverage intake Lifetime non-drinker (finding) [facility] Start: 09-07-2024 Sex Male (finding) [facility] Start: 1955 Sex Assigned At Male F [facility] Medical Equipment Procedure Code Equipment Code Equipment Origin al Text Equipment Identifier Dates Blood Sugar Diagnostic (Onetouch Ultra Test) strip Start: 09-07-2024 History of Present illness Narrative 06-09-2024 Ora Becker APRN-SUPPLY CHAIN INTERN - 06/09/2024 10:55 AM EDT Note Date & Type Note Facility 06-09-2024 History of Presen t illness Narrative Images from the original note were not included. Skin Check Location: Patient requests a full body skin examination Dermatologic history: history of Actinic Keratosis Last visit: 1 year ago Established patient Lesions: Location: scalp Duration: months Quality: denies pain, denies itch, denies bleeding Modifying factors: aggravated by picking Associated symptoms: rough, scaly Treatments: none Lesion # 2: Location:face Duration: months Quality: denies pain, denies itch, denies bleeding Modifying factors: none Associated symptoms: rough Treatments: none All pertinent medical history, medications, and allergies were reviewed. General Exam: alert, oriented to person, place, and time, normal affect, well appearing Accompanied by spouse Scalp, Examined Right leg Examined Head, Face Examined Left leg Examined Neck Examined Right foot Examined Chest Examined Left foot Examined Back Examined Buttocks Examined Abdomen Examined Digits,nails: Examined Right arm Examined Left arm Examined Lymphatics: Not examined Hands Examined 1. Melanocytic nevus of trunk Scattered benign appearing, regular brown to light brown melanocytic papules and macules with similar morphology Counseled regarding these benign growths. Rarely, a nevus can develop into malignant melanoma, so any changing nevi should be promptly re-evaluated. 2. Seborrheic keratosis Stuck on verrucous, variably pigmented papules and plaques. Patient was counseled regarding these benign growths. Removal is normally not necessary, but they may be removed if they are symptomatic or for cosmetic reasons. 3. Lentigines Scattered linares macules in sun-exposed areas. The patient was informed that lentigines are benign pigmented lesions that occur on sun-exposed and sun-damaged skin. No treatment is necessary. Recommended regular use of broad spectrum sunscreen SPF 30 or higher 4. Actinic keratosis (4) Mid Parietal Scalp (2), Right Forehead, Right Temporal Scalp Erythematous scaly papules Patient was counseled regarding these sun-induced growths that can develop into squamous cell carcinoma if left untreated. Discussed treatment with cryotherapy. It was emphasized that any treated lesions that fail to resolve should be re-evaluated. Cryotherapy performed today; see procedure note Diagnosis: Actinic keratosis Indication: Precancerous Location: see skin exam Consent: Verbal consent was obtained and risks were discussed, including, but not limited to risks of scarring, darker or chief of surgery pigmentary changes, recurrence, incomplete removal and infection. Method: Liquid nitrogen was used to treat the lesion(s) with two 5-10 second freeze-thaw cycles. Number of lesions treated: 4 Post-procedure instructions: Instructions were given orally and in writing. The office will be contacted if the lesion fails to resolve despite treatment, or if a side effect develops such as abnormal crusting, scabbing, redness or tenderness Cryotherapy, skin lesion - Mid Parietal Scalp (2), Right Forehead, Right Temporal Scalp 5. Neoplasm of unspecified behavior of bone, soft tissue, and skin Mid Parietal Scalp Irregularly pigmented papule Lesion biopsy Type of biopsy: tangential Informed consent: discussed and consent obtained Informed consent comment: The risks and benefits of the biopsy were discussed. Risks include but are not limited to bleeding, infection, scarring, pain, and nerve damage. An opportunity to ask questions prior to the procedure was permitted and all questions were answered. Patient was prepped and draped in usual sterile fashion: area cleansed with alcohol. Anesthesia: the lesion was anesthetized in a standard fashion Anesthetic: 1% lidocaine w/ epinephrine 1-100,000 buffered w/ 8.4% NaHCO3 Instrument used: DermaBlade Hemostasis achieved with: electrodesiccation Outcome: patient tolerated procedure well Outcome comment: The specimen was placed in a prelabeled formalin container to be sent for pathology Post-procedure details: sterile dressing applied and wound care instructions given Post-procedure details comment: Emphasized need to contact clinic for any signs of infection, uncontrollable bleeding, or complications. Dressing type: bandage Additional details: Photo taken Amount of lidocaine used: 0.6 cc Specimen A - Dermatopathology exam Differential Diagnosis: SCC vs Other Check Margins: No Size of lesion: 0.4 x 0.6 cm Next Visit: 1 year, pending biopsy result documented in this encounter [facility] Progress note 07-08-2023 Note Date & Type Note Facility 07-08-2023 Note Cardiovascular Medic [facility] SUBJECTIVE Chief Complaint Patient presents [...] Final Atrial Rate 06/29/2023 47 BPM Final MN Interval 06/29/2023 154 ms Final QRS DURATION 06/29/2023 82 ms Final QT Interval 06/29/2023 482 ms Final QTC CALCULATION(BAZETT) 06/29/2023 426 ms Final P [place] 06/29/2023 16 degrees Final R-[place] 06/29/2023 55 degrees Final T Wave [place] 06/29/2023 41 degrees Final No results found for: EXTCMP, BMPR1A, CBCDIF, BNP, BNP, LASAP, RED Testing/Procedures: No echocardiogram results found for the past 14 days No echocardiogram results found for the past 12 months Encounter Date: 06/29/23 ECG 12 lead Result Value Ventricular Rate 47 Atrial Rate 47 MN Interval 154 QR (more content not included)... [facility] Progress note 07-08-2023 Note Date [...] All other systems reviewed and are negative. [facility] Progress note 06-29-2023 Note Date [...] include aspirin, high intensity statin therapy, a beta-j luis plus or minus a RAAS inhibitor Follow-up with Dr. Soto in the [place] office in the next 2 to 4 weeks PROCEDURES: Ultrasound-guided access to the right common femoral artery, limited femoral angiography, ultrasound-guided access to the right common femoral vein, right heart catheterization, bilateral selective coronary angiography, placement of a 6 [place] [employer] sales development executive closure device METHODS: After risks, benefits, and [...] micropuncture kit was upsized to a 6 Ecu[place] 11 cm sheath. Angiography via the sheath [...] procedure. All catheters were removed. A 5 [place] Mynx closure device was deployed per protocol [...] device. INDICATIONS: Preoperative evaluation, coronary artery disease. [facility] Progress note 05-20-2023 Note Date & Type Note Facility 05-20-2023 Note [facility] Cardiology Clinic Note Chief Complaint: New patient here to establish care. Ref from Dr. Archer for surgery clearance. He has hx of CAD and previously followed with [facility] back in 2014. He has upcoming [...] percutaneous revascularization. He was evaluated at the [facility]. It [...] and a reasonable target. Was seen at [facility]; single-vessel coronary artery disease with a [...] Ranexa as well as continued his beta j luis, statin, aspirin and amlodipine and he has [...] LAD. This wo (more content not included)... [facility] Clinical Note 05-13-2023 Note Date [...] 10 mg Tab (more content not included)... [facility] Comment on above: Result Comment: Elec tronically Signed By: LYNNETTE MUÑOZ, Pramod Campbell\.giovanna\Date and Time Signed: 05/13/23 17:12 EDT Evaluation note Note Date & Type Note Facility Evaluation note Diagnosis Melanocytic nevus of trunk Benign neoplasm of skin of trunk, except scrotum Seborrheic keratosis Lentigines Actinic keratosis Neoplasm of unspecified behavior of bone, soft tissue, and skin documented in this encounter [facility] Evaluation note Note Date & Type Note Facility Evaluation note No assessment information availa [facility] Work Phone: Summary Purpose Family History Relationship Condition Age at Onset Recorded Date/T dewey father Malignant neoplasm Unknown Heart disease Unknown mother Malignant neoplasm Unknown Advance Directives Advance Directive Response Recorded Date/ Time Advance Directives No February 01 4:42am Chief Complaint and Reason for Visit Chief Complaint Admit Date chest rash September 07, 2024 5 :06pm Additional Source Comments (unrecognized sect ion and content) No Status Records FoundNo Status Records FoundNo Status Records FoundNo Status Records FoundNo Status Records Found INFORMATION SOURCE (unrecogn ized section and content) DATE CREATED AUTHOR 11/21/2022 [facility] DATE CREATED AUTHOR AUTHOR'S ORGANIZ ATION 07/10/2023 [facility] DATE CREATED AUTHOR AUTHOR'S ORGANIZ ATION 11/03/2023 [facility] DATE CREATED AUTHOR AUTHOR'S ORGANIZ ATION 12/07/2023 Timoteo Love [facility] DATE CREATED AUTHOR AUTHOR'S ORGANIZ ATION 06/11/2024 [facility] EPIC Care Teams (unrecognized sec tion and content) Team Status: Active Member Role Status Dates Evens Archer MD Primary Care Provider Active Team Status: Inactive Member Role Status Dates Evens Archer MD Primary Care Provider Active Start: September 07, 2024 End: September 07, 2024 Anna Conroy APRN Attending Provider Active S tart: September 07, 2024 End: September 07, 2024 Goals (unrecognized section and content) Goals may be documented in a n alternate section FOR RECORDS PERTAINING TO PATIENTS WHO ARE [...] BE BASED ON THE PRIMARY CLINICAL RECORDS. [employer] provides no warranty or guarantee of the accuracy or completeness of information in this document.
[2024-09-20 09:10] LABS: Basophils Absolute Auto 0.1 10^3/uL (0.0-0.1); Basophils Percent Auto 1.4 % (0.2-2.0); Eosinophils Percent Auto 15.8 % (0.9-7.0); Hematocrit 40.3 % (42.0-54.0); Hemoglobin 13.2 g/dL (14.0-18.0); Immature Granulocytes Abs Auto 0.03 10^3/uL (0.00-0.03); Immature Granulocytes Pct Auto 0.5 % (0.0-0.5); Lymphocytes Absolute Auto 1.8 10^3/uL (1.2-3.8); Lymphocytes Percent Auto 27.9 % (20.5-60.0); Mean Corpuscular HGB Conc 32.8 g/dL (29.9-35.2); Mean Corpuscular Hemoglobin 31.3 pg (25.9-34.0); Mean Corpuscular Volume 95.5 fL (80.0-94.0); Mean Platelet Volume 9.7 fL (9.5-13.5); Monocytes Absolute Auto 0.5 10^3/uL (0.3-0.8); Neutrophils Absolute Auto 2.9 10^3/uL (1.4-6.5); Neutrophils Percent Auto 46.4 % (43.0-75.0); Platelet Count 143 10^3/uL (150-450); Red Blood Count 4.22 10^6/uL (4.70-6.10); Red Cell Distribution Width 13.4 % (11.0-15.0); White Blood Count 6.3 10^3/uL (4.0-11.0)
[2024-09-20 09:33] LABS: Estimated Average Glucose 120 mg/dL; Glycohemoglobin A1C 5.8 % (4.5-6.2)
[2024-09-20 09:49] LABS: Alanine Aminotransferase 17 U/L (16-63); Albumin Level 3.2 g/dL (3.4-5.0); Alkaline Phosphatase 138 U/L (46-116); Amylase 70 U/L (25-115); Anion Gap 10.5; Aspartate Amino Transferase 17 U/L (15-37); BUN Creatinine Ratio 12.3; Bilirubin Total 0.8 mg/dL (0.2-1.0); Calcium 8.9 mg/dL (8.5-10.1); Carbon Dioxide 29.7 mmol/L (21.0-32.0); Chloride 108 mmol/L (98-107); Chol HDL Ratio 2.1; Cholesterol 119 mg/dL (<=200); Estimated GFR (African America >60 (>=60 mL/min/1.73m^2); Estimated GFR (Non-African Ame 59 (>=60 mL/min/1.73m^2); Free T3 2.03 pg/mL (2.18-3.98); Globulin 3.2 g/dL; Glucose 100 mg/dL (74-106); HDL Cholesterol 58 mg/dL (40-60); Potassium 4.2 mmol/L (3.5-5.1); Sodium 144 mmol/L (136-145); Thyroid Stimulating Hormone 2.193 uIU/mL (0.358-3.740); Total Protein 6.4 g/dL (6.4-8.2); Triglycerides 40 mg/dL (<=150); Uric Acid 5.6 mg/dL (3.5-7.2)
[2024-09-20 10:07] LABS: Prostate Specific Antigen Scrn 2.05 ng/mL (<=4.00)
[2024-09-21 04:07] LABS: CA 19-9 9 U/mL (0-35); CEA 1.2 ng/mL (0.0-4.7)
== END 2024-09-20 08:02 | disposition home or self-care (01) ==
LOC: LAB 08:03
PROVIDERS: PCP Family Medicine; Visit Provider Family Medicine
DX: E78.5 Hyperlipidemia, unspecified (principal); R53.83 Other fatigue; R73.09 Other abnormal glucose; Z12.12 Encounter for screening for malignant neoplasm of rectum; Z12.5 Encounter for screening for malignant neoplasm of prostate; R10.11 Right upper quadrant pain; R97.8 Other abnormal tumor markers; M25.50 Pain in unspecified joint
CPT/HCPCS: 36415; 80053; 80061; 82150; 82378; 83036; 83525; 83690; 84436; 84443; 84481; 84550; 85025; 86301; G0103

== ENCOUNTER 2025-05-21 21:43 | Inpatient (IN) | payer MEDICARE, SELFPAY ==
[2025-05-21] VITALS (13 sets, daily range): BP systolic 178–189; BP diastolic 72–77; PULSE 52–69; TEMP 36.1; O2SAT 98–100; BMI 18.2
--- OUTSIDE RECORDS SUMMARY | 2025-05-21 21:49 | XMS_ITS | Clinical Summary ---
Author Organization [facility] Address [address] [place] [address] Care Team Providers Care Riding Coach Name Role Phone Eriberto Archer MD Primary Care Provider [phone] Allergies Active Allergy Reactions Criticality Noted Date Comments Amlodipine GI intolerance Low 05/20/2023 LE swelling Hydrocodone Unknown High 10/25/2014 Nabumetone Other,Unknown High 10/25/2014 Penicillins Other,Unknown High 10/25/2014 Medications aspirin 325 mg tablet Take 325 mg by mouth in the morning. Active atorvastatin (Lipitor) 40 mg tablet Take 40 mg by mouth at bedtime. 3 Active lansoprazole (Prevacid) [address] capsule Take 15 mg by mouth 2 times daily. Active ranolazine (Ranexa) 500 mg 12 hr tablet Take 500 mg by mouth 2 times daily. 5 Active levothyroxine (Synthroid) 50 mcg tablet Take 50 mcg by mouth. 3 Active zolpidem (Ambien) 10 mg tablet TAKE 1 TABLET BY MOUTH ONCE DAILY AT BEDTIME NEEDED FOR 90 DAYS 3 Active carvedilol (Coreg) 25 mg tabletIndications :Essential hypertension Take 1 tablet (25 mg) by mouth with breakfast and with evening meal. 180 tablet 3 3 Active nitroglycerin (Nitrostat) 0.4 mg SL tablet as directed Sublingual 3 Active furosemide (Lasix) 20 mg tabletIndications :Leg swelling Take 1 tablet (20 mg) by mouth if needed each day (PRN leg swelling). 30 tablet 3 3 Active Active Problems Problem Noted Date Diagnosed Date Pre-op evaluation 06/17/2023 BMI 22.0-22.9, adult 05/20/2023 05/20/2023 Coronary arteriosclerosis 05/20/20232022 Cervical radiculopathy 05/20/2023 Chest pain 05/20/2023 Diverticulitis 05/20/2023 05/20/2023 Dyshidrotic eczema 05/20/2023 05/20/2023 Dyspnea and respiratory abnormalities 05/20/2023 05/20/2023 Gout 05/20/2023 05/20/2023 Hearing loss 05/20/2023 05/20/2023 History of nephrolithiasis 05/20/202305/20 Hyperlipidemia 05/20/2023 05/20/2023 Hypertension 05/20/2023 05/20/2023 Insomnia 05/20/2023 05/20/2023 Reducible right inguinal hernia 05/20/2023 05/20/2023 Sialolithiasis 05/20/2023 05/20/2023 Superficial thrombosis of leg 05/20/2023 Shortness of breath 05/20/2023 Preoperative clearance 05/20/2023 Family History Medical History Relation Name Comments Heart attack Paternal Grandfather Relation Name Status Comments Paternal Grandfather Social History Tobacco Use Types Packs/Day Years Used Date Smoking Tobacco: Never Smokeless Tobacco: Never Tobacco Cessation:Counseling Given: Not Answered Alcohol Use Standard Drinks/Week Comments Not Currently 0 (1 standard drink = 0.6 oz pur e alcohol) [place] Safety & Environment Answer Date Rec orded Fear of Current or Ex-Partner Not on file Emotionally Abused Not on file 10/09/2023 Physically Abused Not on file 10/09/2023 Sexually Abused Not on file 10/09/2023 Physically or Sexually Abused Not on file Sex and Gender Information Value Date Recorded Sex Assigned at Not on file Legal Sex Male 1:45 PM EDT Gender Identity Not on file Sexual Orientation Not on file Last Filed Vital Signs Vital Sign Reading Time Taken Comments Blood Pressure 140/68 07/08/2023 2:21 PM EST Pulse 50 07/08/2023 2:21 PM EST Temperature - - Respiratory Rate 16 06/29/2023 1:42 PM EST Oxygen Saturation 98% 07/08/2023 2:21 PM EST Inhaled Oxygen Concentration - - Weight 66.2 kg (146 lb) 07/08/2023 2:21 PM EST Height 172.7 cm (5' 8 ) 07/08/2023 2:21 PM EST Body Mass Index 22.2 07/08/2023 2:21 PM EST Plan of Treatment Health Maintenance Due Date Last Done Comments CT Colonography 1955 Colonoscopy 1955 Colorectal Cancer Screening 1955 FIT-DNA 1955 FIT 1955 FOBT 1955 Medicare Annual Wellness (AWV) 1955 Sigmoidoscopy 1954 Depression Screening 1966 Pneumococcal Vaccine: 50+ Ye ars (1 of 2 - PCV) 1973 Zoster Vaccines (1 of 2) 01/02/2004 Fall Risk Screening 2019 COVID-19 Vaccine (1 - 2023-2 5 season) 2025 Influenza Vaccine (#1) 2025 Adult Tetanus 05/29/2033 05/29/2023 HIB Vaccines Aged Out No longer eligi ble based on patient's age to complete this topic HPV Vaccines Aged Out No longer eligi ble based on patient's age to complete this topic IPV Vaccines Aged Out No longer eligi ble based on patient's age to complete this topic Meningococcal B Vaccine Aged Out No l onger eligible based on patient's age to complete this topic Meningococcal Vaccine Aged Out No polina shala eligible based on patient's age to complete this topic Rotavirus Vaccines Aged Out No longer eligible based on patient's age to complete this topic Insurance [employer] Care Teams Riding Coach Relationship Specialty Start Date End Date Eriberto Archer MD [address] [place] [address] PCP - General 05/20/23
--- OUTSIDE RECORDS SUMMARY | 2025-05-21 21:49 | XMS_ITS | CCD ---
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 Name Role Phone GIANNI ., DR HORNER Admitting Unavailable HOY ., [...] Gianni MUÑOZ, Evens Benavidez Attending Unavaila ble Unavailable Primary Care Provider UnavailORA Segal Attending Unavailable DAXA RAMÍREZ Attending Unavailable Elissa Wu Attending Unavailable Allergies Allergy Classification Reported Allergen(s) Allergy Type Date of Onset Reaction(s) Facility (3 sources) Penicillins; 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: [PENICILLINS] Drug allergy (disorder) 5 [facility] Repository (4 sources) amLODIPine; 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: [AMLODIPINE] Drug Allergy 3 GI intolerance [facility] Repository (5 sources) HYDROcodone; 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: [HYDROCODONE] Drug Allergy 5 Unknown [facility] Repository (4 sources) nabumetone; 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: [NABUMETONE] Drug Allergy 5 Other, Unknown [facility] Repository (3 sources) Penicillins Drug Intolerance 5 Unknown, Shortness of breath, Other [facility] (1 source) nabumetone; 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: [Relafen] Drug Allergy [facility] Repository Medications Current Medications Medication Drug Class(es) Dates [...] 12:00am Start: 06-07-2024 take 1 capsule by [facility] in the morning celecoxib (CeleBREX) 100 MG [...] disease (4 sources) Atherosclerotic heart disease of [place] coronary artery without angina pectoris; 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: [Unstable [...] Onset: 04-24-2022 Episodic Other aftercare (1 source) group home (current) use of aspirin; 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: [PRISON CURRENT USE OF ASPIRIN] Onset: 04-24-2022 Episodic [...] of lidocaine used: 0.6 cc [facility] 37on 07-08-2023 37 *Take lasix for 2 da ys then as needed *Limit salt/sodium intake Normal [facility] Office Visiton 07-08-2023 Follow-up visit [id number] Chung Denton 1955 M Date Provider Department Center 07/08/2023 166-BLAYNE DAILY CARD [facility] Family History Problem Relation Age of Onset Heart attack Paternal Grandfather Family Status - Relation Status Age at Paternal Grandfather Level of Service:[address] [place] OFFICE/OUTPATIENT ESTABLISHED MOD MDM 30-39 MIN Reason for Visit and Comments: Edema [[id number]] Normal [facility] ANEAbel 06-29-2023 ANES -- Attestation signed by Eliane Murillo MD at 06/29/2023 9:56 AM Eliane Murillo MD, MPH, [facility], [facility], [facility] Interventional Cardiology Pager Email: [email or web address] Patient: Donnie Denton Procedure Information Date/Time: 06/29/23 1030 Procedures: Coronary angiography (Bilateral) - per Maria G in pre-cert at [facility], this has already been authorized thru Aug 2023 - right femoral approach Right heart cath Location: [facility] [employer] [facility] / [facility] (Cath) Providers: Eliane Murillo MD [...] attending. Additional Equipment Requests Normal [facility] HPon 06-29-2023 -- Attestation signed by Eliane Murillo MD at 06/29/2023 9:57 AM Eliane Murillo MD, MPH, [facility], [facility], [facility] Interventional Cardiology Pager Email: [email or web address] History Of Present Illness Donnie Denton is [...] evaluated by cardiothoracic surgery at [facility] and elected to pursue medical management [...] treated since 2015. Meaghan Mukherjee DO, MPH Audio Director [facility] NURSNOTEon 06-29-2023 NURSNOTE RN educated pt on d/ c instructions. RN encouraged pt to voice any questions or concerns. Pt verbalizes no questions or concerns at this time. Normal [facility] Orders Onlyon 06-17-2023 Orders Only [id number] BertinChung gamboa R 1955 [facility] Provider Department [place] 06/17/2023 Avi-DEIRDRE RIDLEY VALERIANO [facility] Family History Problem Relation Age of Onset Heart attack Paternal Grandfather Family Status - Relation Status Age at Paternal Grandfather [facility] Letter (Out)on 05-26-2023 Letter (Out) [id number] BertinChung R 1955 [facility] Provider Department [place] 05/26/2023 None-None [facility] [place] [facility] Family History Problem Relation Age of Onset Heart attack Paternal Grandfather Family Status - Relation Status Age at Paternal Grandfather Normal [facility] Office Visiton 05-20-2023 Follow-up visit [id number] Chung Denton bee R 1955 [facility] Provider Department [place] 05/20/2023 Richa-ELIANE MURILLO VALERIANO [facility] Family History Problem Relation Age of Onset Heart attack Paternal Grandfather Family Status - Relation Status Age at Paternal Grandfather Level of Service:54922 [place] OFFICE/OUTPATIENT [facility] 60-74 MINUTES [facility] Orders Onlyon 05-20-2023 Orders Only [id number] BertinChung R 1955 [facility] Provider Department Center 05/20/2023 Walker-HIMANSHU MCMILLAN VALERIANO [facility] Family History Problem Relation Age of Onset Heart attack Paternal Grandfather Family Status - Relation Status Age at Paternal Grandfather Normal [facility] XR HIP RT 2 3V W [...] ANTONI PENALOZA Date: 2022-11-13 22:38 Normal [facility] XR LSPINE MIN 4 VIEWSon 10-17 XR [...] paraspinous abnormality is seen. OTHER: Negative. IMPRESSION: Pnnc-po-gajlodoz degenerative changes Electronically authenticated by: ANTONI TRACEY Date: 2022-11-14 07:58 Normal [facility] CREATININEon 11-11-2022 Creatinine [Mass/Vol] 1.04 mg/dL Normal 0.70-1.30 [facility] Comment on above: Performed By: #### C ASIF #### [facility] [address] [place] [address] Dr. Gianni Deluna EGFR-AF CONGOLESE >60 Normal >=60 [facility] Comment on above: Performed By: #### C ASIF #### [facility] [address] [place] [address] Dr. Gianni Deluna EGFR-NON AF CONGOLESE >60 Normal >=60 [facility] Comment on above: Performed By: #### C ASIF #### [facility] [address] [place] [address] CHEST W CONon [...] by: PA CROW Date: 2022-11-11 11:29 Normal [facility] MRI CSPINE WO CONon 08-14-20 22 MRI CSPINE WO CON EXAMINATION: MRI CSPINE WO CON HISTORY: [...] ANTONI TRACEY Date: 2022-08-14 09:19 Normal [facility] INSULINon 06-04-2022 Insulin 13.5 uIU/mL Normal 2.6-24.9 [facility] Comment on above: Performed By: #### L ACT #### [facility] [address] [place] [address] Dr. Gianni Deluna CBC AUTO DIFFon 06-03-2022 BASO # 0.1 103/ul Normal 0.0-0.1 [facility] Comment on above: Performed By: #### L ACT #### [facility] [address] [place] [address] Dr. Gianni Deluna Basophils/100 WBC (Bld) 1.2 % Normal 0.2-2.0 [facility] Comment on above: Performed By: #### L ACT #### [facility] [address] [place] [address] Dr. Gianni Deluna EO # 0.4 103/ul Normal 0.0-0.7 [facility] Comment on above: Performed By: #### L ACT #### [facility] [address] [place] [address] Dr. Gianni Deluna Eosinophils/100 WBC (Bld) 5.9 % Normal 0.9-7.0 [facility] Comment on above: Performed By: #### L ACT #### [facility] [address] [place] [address] Dr. Gianni Deluna Erythrocyte distribution width (RBC) [Ratio] 13.4 % Normal 11.0-15.0 [facility] Comment on above: Performed By: #### L ACT #### [facility] [address] [place] [address] Dr. Gianni Deluna Hematocrit (Bld) [Volume fraction] 39.6 % Critically low 42.0-54.0 [facility] Comment on above: Performed By: #### L ACT #### [facility] [address] [address] [address] Gianni Deluna Hemoglobin (Bld) [Mass/Vol] 12.8 g/dL Critically low 14.0-18.0 [facility] Comment on above: Performed By: #### L ACT #### [facility] [address] [address] [address] Gianni Deluna IG # 0.04 10e3/ul Critically high 0.00-0.03 [facility] Comment on above: Performed By: #### L ACT #### [facility] [address] [place] [address] Dr. Gianni Deluna IG % 0.7 % Critically high 0.0-0.5 [facility] Comment on above: Performed By: #### L ACT #### [facility] [address] [place] [address] Dr. Gianni Deluna LYMPH # 1.9 103/ul Normal 1.2-3.8 [facility] Comment on above: Performed By: #### L ACT #### [facility] [address] [place] [address] Dr. Gianni Deluna Lymphocytes/100 WBC (Bld) 31.7 % Normal 20.5-60.0 [facility] Comment on above: Performed By: #### L ACT #### [facility] [address] [place] [address] Dr. Gianni Deluna MANUAL DIFF REQ NO Normal [facility] Comment on above: Performed By: #### L ACT #### [facility] [address] [address] [address] Gianni Deluna MCH (RBC) [Entitic mass] 30.2 pg Normal 25.9-34.0 [facility] Comment on above: Performed By: #### L ACT #### [facility] [address] [place] [address] Dr. Gianni Deluna MCHC (RBC) [Mass/Vol] 32.3 g/dL Normal 29.9-35.2 [facility] Comment on above: Performed By: #### L ACT #### [facility] [address] [place] [address] Dr. Gianni Deluna MCV (RBC) [Entitic vol] 93.4 fL Normal 80.0-94.0 [facility] Comment on above: Performed By: #### L ACT #### [facility] [address] [address] [address] Gianni Deluna MONO # 0.7 103/ul Normal 0.3-0.8 [facility] Comment on above: Performed By: #### L ACT #### [facility] [address] [address] [address] Gianni Deluna Monocytes/100 WBC (Bld) 11.9 % Normal 1.7-12.0 [facility] Comment on above: Performed By: #### L ACT #### [facility] [address] [place] [address] Dr. Gianni Deluna NEUT # 2.9 103/ul Normal 1.4-6.5 [facility] Comment on above: Performed By: #### L ACT #### [facility] [address] [place] [address] Dr. Gianni Deluna Neutrophils/100 WBC (Bld) 48.6 % Normal 43.0-75.0 [facility] Comment on above: Performed By: #### L ACT #### [facility] [address] [place] [address] Dr. Gianni Deluna Platelet mean volume (Bld) [Entitic vol] 9.1 fL Critically low 9.5-13.5 [facility] Comment on above: Performed By: #### L ACT #### [facility] [address] [place] [address] Dr. Gianni Deluna PLT 168 103/ul Normal 150-450 [facility] Comment on above: Performed By: #### L ACT #### [facility] [address] [place] [address] Dr. Gianni Deluna RBC 4.24 106/ul Critically low 4.70-6.10 [facility] Comment on above: Performed By: #### L ACT #### [facility] [address] [place] [address] Dr. Gianni Deluna WBC 6.0 103/ul Normal 4.0-11.0 [facility] Comment on above: Performed By: #### L ACT #### [facility] [address] [place] [address] Dr. Gianni Deluna FREE THYROXINE INDEX T7on FTI 1.91 Normal 1.30-4.50 [facility] Comment on above: Performed By: #### L ACT #### [facility] [address] [place] [address] Dr. Gianni Deluna T3U 36.0 % Normal 33.0-40.0 [facility] Comment on above: Performed By: #### L ACT #### [facility] [address] [place] [address] Dr. Gianni Deluna T4 [Mass/Vol] 5.30 ug/dL Normal 4.50-12.10 [facility] Comment on above: Performed By: #### L ACT #### [facility] [address] [place] [address] Dr. Gianni Deluna GLYCOHEMOGLOBIN A1Con 2021 ADA RECOMMENDATION SEE BELOW Normal [facility] Comment on above: Result Comment: ADA RECOMMENDED LIMIT 4.0 - 6.0 ADA THERAPEUTIC TARGET < 7.0 ACTION SUGGESTED > 7.0 Performed By: #### D DIM #### [facility] [address] [place] [address] Dr. Gianni Deluna Glucose [Mass/Vol] 140 mg/dL Normal [facility] Comment on above: Performed By: #### D DIM #### [facility] [address] [place] [address] Dr. Gianni Deluna HbA1c (Bld) [Mass fraction] 6.5 % Critically high 4.5-6.2 [facility] Comment on above: Performed By: #### D DIM #### [facility] [address] [place] [address] Dr. Gianni Deluna LIPID PROFILEon 06-03-2022 CHOL-HDL RATIO NORM SEE BELOW Normal [facility] Comment on above: Result Comment: 3.3 - 4.4 LOW RISK 4.4 - 7.1 AVERAGE RISK 7.1 - 11.0 MODERATE RISK >11.0 HIGH RISK Performed By: #### T SH, T7, URIC, CMP, LIPID #### [facility] [address] [address] [address] Gianni Deluna Cholesterol [Mass/Vol] 104 mg/dL Normal <=200 [facility] Comment on above: Performed By: #### T SH, T7, URIC, CMP, LIPID #### [facility] [address] [address] [address] Gianni Deluna Cholesterol in HDL [Mass/Vol] 49 mg/dL Normal 40-60 [facility] Comment on above: Performed By: #### T SH, T7, URIC, CMP, LIPID #### [facility] [address] [place] [address] Dr. Gianni Delnua Cholesterol in LDL [Mass/Vol] 46.6 mg/dL Normal [facility] Comment on above: Performed By: #### T SH, T7, URIC, CMP, LIPID #### [facility] [address] [place] [address] Dr. Gianni Deluna Cholesterol.total/Ch olesterol in HDL [Mass ratio] 2.1 {ratio} Normal [facility] Comment on above: Performed By: #### T SH, T7, URIC, CMP, LIPID #### [facility] [address] [place] [address] Dr. Gianni Deluna HDL NORMAL > or = 60 mg/dl - LO W CARDIOVASCULAR RISK <40 mg/dl - HIGH CARDIOVASCULAR RISK Normal [facility] Comment on above: Performed By: #### T SH, T7, URIC, CMP, LIPID #### [facility] [address] [place] [address] Dr. Gianni Deluna LDL CALC NORMAL SEE BELOW Normal [facility] Comment on above: Result Comment: <100 mg/dl OPTIMAL 100 - 129 mg/dl NEAR OR ABOVE OPTIMAL 130 - 159 mg/dl BORDERLINE HIGH 160 - 189 mg/dl HIGH >190 mg/dl VERY HIGH Performed By: #### T SH, T7, URIC, CMP, LIPID #### [facility] [address] [place] [address] Dr. Gianni Deluna Triglyceride [Mass/Vol] 42 mg/dL Normal <=150 [facility] Comment on above: Performed By: #### T SH, T7, URIC, CMP, LIPID #### [facility] [address] [address] [address] Gianni Deluna VLDL CALC 8.4 mg/dL Normal [facility] Comment on above: Performed By: #### T SH, T7, URIC, CMP, LIPID #### [facility] [address] [place] [address] Dr. Gianni Deluna PROF 14(COMP METB)on 06-03- 022 Albumin [Mass/Vol] 2.9 g/dL Critically low 3.4-5.0 [facility] Comment on above: Performed By: #### T SH, T7, URIC, CMP, LIPID #### [facility] [address] [place] [address] Dr. Gianni Deluna Albumin/Globulin [Mass ratio] 0.8 {ratio} Normal [facility] Comment on above: Performed By: #### T SH, T7, URIC, CMP, LIPID #### [facility] [address] [place] [address] Dr. Gianni Deluna ALP [Catalytic activity/Vol] 127 U/L Critically high 46-116 [facility] Comment on above: Performed By: #### T SH, T7, URIC, CMP, LIPID #### [facility] [address] [place] [address] Dr. Gianni Deluna ALT [Catalytic activity/Vol] 23 U/L Normal 16-63 [facility] Comment on above: Performed By: #### T SH, T7, URIC, CMP, LIPID #### [facility] [address] [place] [address] Dr. Gianni Deluna Anion gap [Moles/Vol] 8.4 mmol/L Normal [facility] Comment on above: Performed By: #### T SH, T7, URIC, CMP, LIPID #### [facility] [address] [place] [address] Dr. Gianni Deluna AST [Catalytic activity/Vol] 21 U/L Normal 15-37 [facility] Comment on above: Performed By: #### T SH, T7, URIC, CMP, LIPID #### [facility] [address] [place] [address] Dr. Gianni Deluna Bilirubin [Mass/Vol] 0.5 mg/dL Normal 0.2-1.0 [facility] Comment on above: Performed By: #### T SH, T7, URIC, CMP, LIPID #### [facility] [address] [place] [address] Dr. Gianni Deluna Calcium [Mass/Vol] 8.3 mg/dL Critically low 8.5-10.1 Th e [facility] Comment on above: Performed By: #### T SH, T7, URIC, CMP, LIPID #### [facility] [address] [place] [address] Dr. Gianni Deluna Chloride [Moles/Vol] 107 mmol/L Normal 98-107 [facility] Comment on above: Performed By: #### T SH, T7, URIC, CMP, LIPID #### [facility] [address] [place] [address] Dr. Gianni Deluna CO2 [Moles/Vol] 30.6 mmol/L Normal 21.0-32.0 [facility] Comment on above: Performed By: #### T SH, T7, URIC, CMP, LIPID #### [facility] [address] [place] [address] Dr. Gianni Deluna Creatinine [Mass/Vol] 0.93 mg/dL Normal 0.70-1.30 [facility] Comment on above: Performed By: #### T SH, T7, URIC, CMP, LIPID #### [facility] [address] [place] [address] Dr. Gianni Deluna EGFR-AF CONGOLESE >60 Normal >=60 [facility] Comment on above: Performed By: #### T SH, T7, URIC, CMP, LIPID #### [facility] [address] [place] [address] Dr. Gianni Deluna EGFR-NON AF CONGOLESE >60 Normal >=60 [facility] Comment on above: Performed By: #### T SH, T7, URIC, CMP, LIPID #### [facility] [address] [place] [address] Dr. Gianni Deluna Globulin (S) [Mass/Vol] 3.5 g/dL Normal [facility] Comment on above: Performed By: #### T SH, T7, URIC, CMP, LIPID #### [facility] [address] [place] [address] Dr. Gianni Deluna Glucose [Mass/Vol] 114 mg/dL Critically high 74-106 [facility] Comment on above: Performed By: #### T SH, T7, URIC, CMP, LIPID #### [facility] [address] [place] [address] Dr. Gianni Deluna Potassium [Moles/Vol] 4.0 mmol/L Normal 3.5-5.1 [facility] Comment on above: Performed By: #### T SH, T7, URIC, CMP, LIPID #### [facility] [address] [place] [address] Dr. Gianni Deluna Protein [Mass/Vol] 6.4 g/dL Normal 6.4-8.2 [facility] Comment on above: Performed By: #### T SH, T7, URIC, CMP, LIPID #### [facility] [address] [place] [address] Dr. Gianni Deluna Sodium [Moles/Vol] 142 mmol/L Normal 136-145 [facility] Comment on above: Performed By: #### T SH, T7, URIC, CMP, LIPID #### [facility] [address] [place] [address] Dr. Gianni Deluna Urea nitrogen [Mass/Vol] 11.0 mg/dL Normal 7.0-18.0 [facility] Comment on above: Performed By: #### T SH, T7, URIC, CMP, LIPID #### [facility] [address] [place] [address] Dr. Gianni Deluna Urea nitrogen/Creatinine [Mass ratio] 11.8 mg/mg Normal [facility] Comment on above: Performed By: #### T SH, T7, URIC, CMP, LIPID #### [facility] [address] [place] [address] Dr. Gianni Deluna TSHon 06-03-2022 TSH 0.814 uIU/mL Normal 0.358-3.740 [facility] Comment on above: Performed By: #### L ACT #### [facility] [address] [place] [address] Dr. Gianni Deluna URIC ACID SERUMon 06-03-2022 Urate [Mass/Vol] 5.2 mg/dL Normal 3.5-7.2 [facility] Comment on above: Performed By: #### T SH, T7, URIC, CMP, LIPID #### [facility] [address] [address] [address] Gianni Deluna CARDIAC ALEX 3-6on 2 CK [Catalytic activity/Vol] 82 U/L Normal 39-308 [facility] Comment on above: Performed By: #### L ACT #### [facility] [address] [place] [address] Dr. Gianni Deluna CK.MB [Mass/Vol] 2.40 ng/mL Normal <=3.60 [facility] Comment on above: Performed By: #### L ACT #### [facility] [address] [place] [address] Dr. Gianni Deluna HSTROP 8.6 pg/mL Normal 4.0-76.1 [facility] Comment on above: Result Comment: CUT- OFF POINTS HAVE BEEN ESTABLISHED BASED ON THE FOURTH UNIVERSAL DEFINITIONS OF MYOCARDIAL INFARCTION. THE UPPER REFERENCE LIMIT (URL) OF TROPONIN, DEFINED THE 99TH PERCENTILE OF cTnI DISTRIBUTION IN A REFERENCE POPULATION, HAS BEEN CONFIRMED THE DECISION THRESHOLD FOR [place] DIAGNOSIS. Performed By: #### L ACT #### [facility] [address] [place] [address] ABD/PELV W CONon [...] by: JAIMIE COOPER Date: 2022-04-21 00:38 Normal [facility] LACTATE/LACTIC ACIDon 2021 Lactate [Moles/Vol] 2.2 mmol/L Critically high 0.4-1.9 [facility] Comment on above: Performed By: #### L ACT #### [facility] [address] [place] [address] Dr. Gianni Deluna AMYLASEon 04-20-2022 Amylase [Catalytic activity/Vol] 139 U/L Critically high 25-115 [facility] Comment on above: Performed By: #### L ACT #### [facility] [address] [address] [address] Gianni Deluna CARDIAC ALEX ADMITon 022 CK [Catalytic activity/Vol] 88 U/L Normal 39-308 [facility] Comment on above: Performed By: #### C MADM #### [facility] [address] [address] [address] Gianni Deluna CK.MB [Mass/Vol] 1.82 ng/mL Normal <=3.60 [facility] Comment on above: Performed By: #### C MADM #### [facility] [address] [address] [address] Gianni Deluna HSTROP 7.2 pg/mL Normal 4.0-76.1 [facility] Comment on above: Result Comment: CUT- OFF POINTS HAVE BEEN ESTABLISHED BASED ON THE FOURTH UNIVERSAL DEFINITIONS OF MYOCARDIAL INFARCTION. THE UPPER REFERENCE LIMIT (URL) OF TROPONIN, DEFINED THE 99TH PERCENTILE OF cTnI DISTRIBUTION IN A REFERENCE POPULATION, HAS BEEN CONFIRMED THE DECISION THRESHOLD FOR [place] DIAGNOSIS. Performed By: #### C MADM #### [facility] [address] [place] [address] Dr. Gianni Deluna FILIBERTO 93 ng/mL Normal 16-96 [facility] Comment on above: Performed By: #### C MADM #### [facility] [address] [place] [address] Dr. Gianni Deluna CBC AUTO DIFFon 04-20-2022 BASO # 0.0 103/ul Normal 0.0-0.1 [facility] Comment on above: Performed By: #### C BC #### [facility] [address] [place] [address] Dr. Gianni Deluna Basophils/100 WBC (Bld) 0.3 % Normal 0.2-2.0 [facility] Comment on above: Performed By: #### C BC #### [facility] [address] [place] [address] Dr. Gianni Deluna EO # 0.0 103/ul Normal 0.0-0.7 [facility] Comment on above: Performed By: #### C BC #### [facility] [address] [place] [address] Dr. Gianni Deluna Eosinophils/100 WBC (Bld) 0.1 % Critically low 0.9-7.0 [facility] Comment on above: Performed By: #### C BC #### [facility] [address] [place] [address] Dr. Gianni Deluna Erythrocyte distribution width (RBC) [Ratio] 13.5 % Normal 11.0-15.0 [facility] Comment on above: Performed By: #### C BC #### [facility] [address] [place] [address] Dr. Gianni Deluna Hematocrit (Bld) [Volume fraction] 45.8 % Normal 42.0-54.0 [facility] Comment on above: Performed By: #### C BC #### [facility] [address] [address] [address] Gianni Deluna Hemoglobin (Bld) [Mass/Vol] 15.3 g/dL Normal 14.0-18.0 [facility] Comment on above: Performed By: #### C BC #### [facility] [address] [address] [address] Gianni Deluna IG # 0.05 10e3/ul Critically high 0.00-0.03 [facility] Comment on above: Performed By: #### C BC #### [facility] [address] [address] [address] Gianni Deluna IG % 0.5 % Normal 0.0-0.5 [facility] Comment on above: Performed By: #### C BC #### [facility] [address] [place] [address] Dr. Gianni Deluna LYMPH # 0.8 103/ul Critically low 1.2-3.8 [facility] Comment on above: Performed By: #### C BC #### [facility] [address] [place] [address] Dr. Gianni Deluna Lymphocytes/100 WBC (Bld) 7.7 % Critically low 20.5-60.0 [facility] Comment on above: Performed By: #### C BC #### [facility] [address] [place] [address] Dr. Gianni Deluna MANUAL DIFF REQ NO Normal [facility] Comment on above: Performed By: #### C BC #### [facility] [address] [address] [address] Gianni Deluna MCH (RBC) [Entitic mass] 30.4 pg Normal 25.9-34.0 [facility] Comment on above: Performed By: #### C BC #### [facility] [address] [place] [address] Dr. Gianni Deluna MCHC (RBC) [Mass/Vol] 33.4 g/dL Normal 29.9-35.2 [facility] Comment on above: Performed By: #### C BC #### [facility] [id number] Gianni Deluna MCV (RBC) [Entitic vol] 90.9 fL Normal 80.0-94.0 [facility] Comment on above: Performed By: #### C BC #### [facility] [address] [address] [address] Gianni Deluna MONO # 0.4 103/ul Normal 0.3-0.8 [facility] Comment on above: Performed By: #### C BC #### [facility] [address] [address] [address] Gianni Deluna Monocytes/100 WBC (Bld) 3.3 % Normal 1.7-12.0 [facility] Comment on above: Performed By: #### C BC #### [facility] [address] [place] [address] Dr. Gianni Deluna NEUT # 9.7 103/ul Critically high 1.4-6.5 [facility] Comment on above: Performed By: #### C BC #### [facility] [address] [place] [address] Dr. Gianni Deluna Neutrophils/100 WBC (Bld) 88.1 % Critically high 43.0-75.0 [facility] Comment on above: Performed By: #### C BC #### [facility] [address] [place], [place] [id number] Dr. Gianni Deluna Platelet mean volume (Bld) [Entitic vol] 8.9 fL Critically low 9.5-13.5 [facility] Comment on above: Performed By: #### C BC #### [facility] [address] [place], [place] [id number] Dr. Gianni Deluna PLT 198 103/ul Normal 150-450 [facility] Comment on above: Performed By: #### C BC #### [facility] [id number] Gianni Deluna RBC 5.04 106/ul Normal 4.70-6.10 [facility] Comment on above: Performed By: #### C BC #### [facility] [address] [place] [address] Dr. Gianni Deluna WBC 11.0 103/ul Normal 4.0-11.0 [facility] Comment on above: Performed By: #### C BC #### [facility] [address] [place], [place] [address] Dr. Gianni Deluna [facility] SARS-CoV-2 (COVID-19) RNA NICHOLE+probe Ql (Unsp spec) Not detected Normal NOT DETECTED [facility] Comment on above: Result Comment: When diagnostic [...] for this test is supported by the Library Technician of Health and Human Service's declaration that [...] used). Performed By: #### C VDTBH #### [facility] [address] [address] [address] Gianni Deluna D-DIMERon 04-20-2022 D-DIMER 0.37 mg/L FEU Normal <=0.59 [facility] Comment on above: Performed By: #### D DIM #### [facility] [address] [address] [address] Gianni Deluna D-DIMER COMMENTS SEE BELOW Normal [facility] Comment on above: Result Comment: Incr [...] hospitalization. Performed By: #### D DIM #### [facility] [address] [place] [address] Dr. Gianni Deluna LACTATE/LACTIC ACIDon 2021 Lactate [Moles/Vol] 2.3 mmol/L Critically high 0.4-1.9 [facility] Comment on above: Performed By: #### L ACT #### [facility] [address] [place] [address] Dr. Gianni Deluna LIPASEon 04-20-2022 Lipase [Catalytic activity/Vol] 48.0 U/L Critically low 73.0-393.0 [facility] Comment on above: Performed By: #### L ACT #### [facility] [address] [place] [address] Dr. Gianni Deluna PROF 14(COMP METB)on 022 Albumin [Mass/Vol] 3.9 g/dL Normal 3.4-5.0 [facility] Comment on above: Performed By: #### L ACT #### [facility] [address] [place] [address] Dr. Gianni Deluna Albumin/Globulin [Mass ratio] 1.0 {ratio} Normal [facility] Comment on above: Performed By: #### L ACT #### [facility] [address] [place] [address] Dr. Gianni Deluna ALP [Catalytic activity/Vol] 127 U/L Critically high 46-116 [facility] Comment on above: Performed By: #### L ACT #### [facility] [address] [place] [address] Dr. Gianni Deluna ALT [Catalytic activity/Vol] 27 U/L Normal 16-63 [facility] Comment on above: Performed By: #### L ACT #### [facility] [address] [place] [address] Dr. Gianni Deluna Anion gap [Moles/Vol] 15.9 mmol/L Normal [facility] Comment on above: Performed By: #### L ACT #### [facility] [address] [address] [address] Gianni Deluna AST [Catalytic activity/Vol] 27 U/L Normal 15-37 [facility] Comment on above: Performed By: #### L ACT #### [facility] [address] [address] [address] Gianni Deluna Bilirubin [Mass/Vol] 0.9 mg/dL Normal 0.2-1.0 [facility] Comment on above: Performed By: #### L ACT #### [facility] [address] [address] [address] Gianni Deluna Calcium [Mass/Vol] 8.9 mg/dL Normal 8.5-10.1 [facility] Comment on above: Performed By: #### L ACT #### [facility] [address] [address] [address] Gianni Deluna Chloride [Moles/Vol] 103 mmol/L Normal 98-107 [facility] Comment on above: Performed By: #### L ACT #### [facility] [address] [address] [address] Gianni Deluna CO2 [Moles/Vol] 24.2 mmol/L Normal 21.0-32.0 [facility] Comment on above: Performed By: #### L ACT #### [facility] [address] [address] [address] Gianni Deluna Creatinine [Mass/Vol] 1.27 mg/dL Normal 0.70-1.30 [facility] Comment on above: Performed By: #### L ACT #### [facility] [address] [address] [address] Gianni Deluna EGFR-AF CONGOLESE >60 Normal >=60 [facility] Comment on above: Performed By: #### L ACT #### [facility] [address] [address] [address] Gianni Deluna EGFR-NON AF CONGOLESE 56 mL/min/1.73m2 Critically low >=60 [facility] Comment on above: Performed By: #### L ACT #### [facility] [address] [address] [address] Gianni Deluna Globulin (S) [Mass/Vol] 3.9 g/dL Normal [facility] Comment on above: Performed By: #### L ACT #### [facility] [address] [address] [address] Gianni Deluna Glucose [Mass/Vol] 145 mg/dL Critically high 74-106 [facility] Comment on above: Performed By: #### L ACT #### [facility] [address] [address] [address] Gianni Deluna Potassium [Moles/Vol] 4.1 mmol/L Normal 3.5-5.1 [facility] Comment on above: Performed By: #### L ACT #### [facility] [address] [address] [address] Gianni Deluna Protein [Mass/Vol] 7.8 g/dL Normal 6.4-8.2 [facility] Comment on above: Performed By: #### L ACT #### [facility] [address] [address] [address] Gianni Deluna Sodium [Moles/Vol] 139 mmol/L Normal 136-145 [facility] Comment on above: Performed By: #### L ACT #### [facility] [address] [address] [address] Gianni Deluna Urea nitrogen [Mass/Vol] 22.0 mg/dL Critically high 7.0-18.0 [facility] Comment on above: Performed By: #### L ACT #### [facility] [address] [address] [address] Gianni Deluna Urea nitrogen/Creatinine [Mass ratio] 17.3 mg/mg Normal [facility] Comment on above: Performed By: #### L ACT #### [facility] [address] [address] [address] Gianni Deluna XR ABD FLAT UP_PA [...] by: JAIMIE COOPER Date: 2022-04-20 21:58 Normal [facility] US RICHELLE DOP LEG [...] LAWANDA VEE Date: 2022-03-18 13:25 Normal [facility] US RICHELLE DOP LEG LTon 12-08-19 22 [...] by: ANTONI JOLLEY Date: 2021-12-06 22:57 Normal [facility] Vital Signs Date Time Vital Sign Value Performing Clinician Faci lity 09-07-2024 17:32-0500 Diastolic blood pressure 78 mm[Hg] [facility] 09-07-2024 17:32-0500 Systolic blood pressure 180 mm[Hg] [facility] 09-07-2024 17:14-0500 Body height 172.72 cm [facility] [place] [facility] 09-07-2024 17:14-0500 Body mass index (BMI) [Ratio] 19 kg/m2 [facility] 09-07-2024 17:14-0500 Body temperature 98.5 [degF] [facility] 09-07-2024 17:14-0500 Body weight 56.69 kg [facility] [place] [facility] 09-07-2024 17:14-0500 Heart rate 49 /min [facility] [place] [facility] 09-07-2024 17:14-0500 Respiratory rate 18 /min [facility] 09-07-2024 17:14-0500 SaO2% (BldA) [Mass fraction] 99 % [facility] Encounters Encounter Date Encounter Type Care Provider Facility Start: 02-22-2025 ambulatory Elissa Abbott lity:Jimbo Start: 02-08-2025 ambulatory Elissa Wu Facilit y:Jimbo Start: 09-07-2024 End: 09-07-[address] [facility] Work Phone: Start: 09-07-2024 End: 09-07-2024 Patient encounter procedure [facility] Work Phone: Start: 06-09-2024 End: 06-09-2024 Waleboo flowsisidro [place] USABILITY ARCHITECT-SOFTWARE TEST AND VALIDATION ENGINEER Work Phone: [facility] Start: 06-09-2024 End: 06-09-2024 Bamboo flowsheet Ora [place] USABILITY ARCHITECT-SOFTWARE TEST AND VALIDATION ENGINEER Work Phone: [facility] Start: 06-09-2024 End: 06-09-2024 Office outpatient visit 15 minutes Ora [place] USABILITY ARCHITECT-SOFTWARE TEST AND VALIDATION ENGINEER Work Phone: [facility] Comment on above: Melanocytic nevus of trunk; Seborrheic keratosis; Lentigines; Actinic keratosis; Neoplasm of unspecified behavior of bone, soft tissue, and skin Start: 06-09-2024 End: 06-09-2024 ambulatory ORA [place]ER Not Available Start: 10-26-2023 End: 10-27-2023 [facility] Start: 09-21-2023 End: 09-22-2023 ambulatory Stefany Ballard MD Facility: [facility] Start: 08-31-2023 End: 09-01-2023 ambulatory [facility] Start: 08-05-2023 End: 08-05-2023 ambulatory DAXA RAMÍREZ Not Available Start: 07-17-2023 ambulatory Evens Archer MD Facility:[facility] Start: 07-08-2023 End: 07-08-2023 ambulatory [facility] Start: 06-29-2023 End: 06-29-2023 ambulatory [facility] Start: 06-29-2023 End: 06-29-2023 Encounter for other preprocedural examination [facility] Start: 06-17-2023 Encounter for other preprocedural examination [facility] Start: 05-20-2023 End: 05-20-2023 ambulatory [facility] Start: 11-13-2022 End: 11-14-[address] EVENS [...] Clinician Start: 06-09-2024 SKIN / NAIL BIOPSY Shira [place] USABILITY ARCHITECT-SOFTWARE TEST AND VALIDATION ENGINEER Work Phone: Start: 06-09-2024 CRYOTHERAPY SKIN LESION Ora [place] USABILITY ARCHITECT-SOFTWARE TEST AND VALIDATION ENGINEER Work Phone: Start: 06-03-[address] FRANCO ARCHER . Comment on above: Performed By: #### P [facility] #### [facility] [address] [place] [address] Dr. Gianni Deluna Plan of Treatment Date Care Activity Detail Author Start: 06-12-2025 End: 06-12-2025 Patient encounter procedure 06/12/2025 9:55 AM EDT Office Visit [facility] [address] [place] [address] Ora [place], USABILITY ARCHITECT-SOFTWARE TEST AND VALIDATION ENGINEER [address] [place] [address] [facility] Start: 06-09-2024 End: 06-09-2024 Patient encounter procedure 06/09/2024 10:55 AM EDT Office Visit [facility] [address] [place] [address] Ora [place], USABILITY ARCHITECT-SOFTWARE TEST AND VALIDATION ENGINEER [address] [place] [address] Arrived [facility] Comment on above: Arrived Dermatopathology exam Dermatopat hology exam Pathology and Cytology Timed Neoplasm of unspecified behavior of bone, soft tissue, and skin Release Upon Ordering for 1 Occurrences starting 06/09/2024 [facility] Work Phone: Comment on above: Release Upon Ordering for 1 Occurrences starting 06/09/2024 Payers Date Payer Category Payer Unknown 2021 Medicare (Managed Care) [employer] [id number] 1959 Self-pay [id number] 1959 Unknown [id number] 1954 Unknown [id number] [id number]. 2.59 1954 Unknown [id number] 2.16.840.1.012934.3.579. 2.59 1954 Unknown [id number] 2.16.840.1.792448.3.579. 2.59 1954 Unknown [id number] 2.16.840.1.361861.3.579. 2.59 1954 Unknown [id number] 2.16.840.1.277973.3.579. 2.59 1954 Unknown [id number] 2.16.840.1.355710.3.579. 2.59 1954 Unknown [id number] 2.16.840.1.515273.3.579. 2.593 1954 Unknown [id number] 2.16.840.1.676872.3.579. 2.593 1954 Unknown [id number] 2.16.840.1.058163.3.579. 2.196 1954 Unknown [id number] 2.16.840.1.875584.3.579. 2.196 1954 Unknown [id number] 2.16.840.1.074346.3.579. 2.196 1954 Unknown [id number] 2.16.840.1.707906.3.579. 2.1259 1954 Unknown [id number] 2.16.840.1.351357.3.579. 2.1259 1954 Unknown [id number] 2.16.840.1.663544.3.579. 2.727 Social History Date Type Detail Facility Start: 08-05-2023 End: 09-07-2024 Tobacco smoking status VTIS Never smoked tobacco [facility] Start: 08-05-2023 Tobacco use and exposure Smokeless tobacco non-user [facility] Start: 08-05-2023 End: 06-09-2024 History of Social function [facility] Start: 08-05-2023 End: 06-09-2024 Tobacco use panel [facility] Start: 1955 Sex assigned at Not on file [facility] Start: 06-09-2024 Alcoholic beverage intake Lifetime non-drinker (finding) [facility] Start: 09-07-2024 Sex Male (finding) [facility] Start: 1955 Sex Assigned At Male F [facility] Medical Equipment Procedure Code Equipment Code Equipment Origin al Text Equipment Identifier Dates Blood Sugar Diagnostic (Onetouch Ultra Test) strip Start: 09-07-2024 History of Present illness Narrative 06-09-2024 Ora [place], USABILITY ARCHITECT-SOFTWARE TEST AND VALIDATION ENGINEER - 06/09/2024 10:55 AM EDT Note Date [...] limited to risks of scarring, darker or prism inspector pigmentary changes, recurrence, incomplete removal and infection. [...] pending biopsy result documented in this encounter [facility] Progress note 07-08-2023 Note Date & Type Note Facility 07-08-2023 Note [facility] SUBJECTIVE Chief Complaint Patient presents with Edema [...] QTC CALCULATION(BAZETT) 06/29/2023 426 ms Final P [place] 06/29/2023 16 degrees Final R-[place] 06/29/2023 55 degrees Final T Wave [place] 06/29/2023 41 degrees Final No results found for: EXTCMP, BMPR1A, CBCDIF, BNP, BNP, LASAP, RED Testing/Procedures: No echocardiogram results found for the past 14 days No echocardiogram results found for the past 12 months Encounter Date: 06/29/23 ECG 12 lead Result Value Ventricular Rate 47 Atrial Rate 47 IL Interval 154 QR (more content not included)... [facility] Progress note 07-08-2023 Note Date & [...] systems reviewed and are negative. [facility] Progress note 06-29-2023 Note Date & [...] inhibitor Follow-up with Dr. 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 [facility] Progress note 05-20-2023 Note Date & Type Note Facility 05-20-2023 Note [facility] Cardiology Clinic Note Chief Complaint: New patient here to establish care. Ref from Dr. Archer for surgery clearance. He has hx of CAD and previously followed with [facility] back in 2014. He has [...] He was evaluated at the [facility] cardi[facility]acic surgery. It was elected to continue [...] reasonable target. Was seen at [facility]; single-vessel coronary artery disease with a [...] wo (more content not included)... [facility] Evaluation note Note Date & Type Note Facility Evaluation note Diagnosis Melanocytic nevus of trunk Benign neoplasm of skin of trunk, except scrotum Seborrheic keratosis Lentigines Actinic keratosis Neoplasm of unspecified behavior of bone, soft tissue, and skin documented in this encounter [facility] Evaluation note Note Date & Type Note Facility Evaluation note No assessment information availa [facility] Work Phone: Summary Purpose Family History No Family History Records Found Relationship Condition Age at Onset Recorded Date/T dewey father Malignant neoplasm Unknown Heart disease Unknown mother Malignant neoplasm Unknown Advance Directives No Advanced Directives Records Found Advance Directive Response Recorded Date/ Time Advance [...] section and content) DATE CREATED AUTHOR 11/21/2022 Frances Slater [facility] DATE CREATED AUTHOR AUTHOR'S ORGANIZ ATION 07/10/2023 [facility] DATE CREATED AUTHOR AUTHOR'S ORGANIZ ATION 11/03/2023 [facility] DATE CREATED AUTHOR AUTHOR'S ORGANIZ ATION 06/11/2024 [facility] DATE CREATED AUTHOR AUTHOR'S ORGANIZ ATION 02/23/2025 [facility] Care Teams (unrecognized sec tion and content) [...] BE BASED ON THE PRIMARY CLINICAL RECORDS. [employer] provides no warranty or guarantee of the accuracy or completeness of information in this document.
--- OUTSIDE RECORDS SUMMARY | 2025-05-21 21:49 | XMS_ITS | Clinical Summary ---
Author Organization [facility] Address [address] [place] [address] Care Team Providers Care Trimmer Meat Name Role Phone Eriberto Archer MD Primary Care Provider [phone] Allergies Active Allergy Reactions Criticality Noted Date Comments Hydrocodone Unknown High 10/25/2014 Penicillins Unknown High 10/25/2014 Nabumetone Unknown High 10/25/2014 Medications zolpidem (AMBIEN) 10 mg tab Take 10 mg by mouth daily at bedtime. Active aspirin 325 mg tablet Take 325 mg by mouth once daily. Active metoprolol tartrate, short acting, (LOPRESSOR) 50 mg tablet Take 0.5 tablets by mouth twice daily. 180 tablet 3 10/27/2014 Active atorvastatin (LIPITOR) 40 mg tablet Take 1 tablet by mouth once daily. 30 tablet 5 11/13/2014 Active lansoprazole (PREVACID) 15 mg capsule Take 15 mg by mouth once daily. Active ranolazine ER (RANEXA) 500 mg 12 hr tablet Take 1 tablet by mouth twice daily. 180 tablet 3 11/21/2014 Active amLODIPine (NORVASC) 5 mg tablet Take 0.5 tablets by mouth once daily. 90 tablet 3 04/05/2015 Active Active Problems Problem Noted Date Diagnosed Date Hypertension Dyspnea and respiratory abnormalities Chest pain CAD (coronary artery disease) Family History Medical History Relation Comments Cancer Father lung Heart Maternal Grandfather Relation Status Comments Father Maternal Grandfather Mother Social History Tobacco Use Types Packs/Day Years Used Date Smoking Tobacco: Never Smokeless Tobacco: Never Alcohol Use Standard Drinks/Week Comments No 0 (1 standard drink = 0.6 oz pur e alcohol) Sex and Gender Information Value Date Recorded Sex Assigned at Not on file Legal Sex Male 3:55 PM EST Gender Identity Not on file Sexual Orientation Not on file 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 Not on file Not on file Not on file Last Filed Vital Signs Vital Sign Reading Time Taken Comments Blood Pressure 109/63 02/23/2015 9:42 AM EDT Pulse 49 02/23/2015 9:42 AM EDT Temperature 37 C (98.6 F) 02/23/2015 9:42 AM EDT Respiratory Rate 14 02/23/2015 9:42 AM EDT Oxygen Saturation 98% 02/23/2015 9:42 AM EDT Inhaled Oxygen Concentration - - Weight 70.8 kg (156 lb) 02/23/2015 9:42 AM EDT Height 174 cm (5' 8.5 ) 02/23/2015 9:42 AM EDT Body Mass Index 23.37 02/23/2015 9:42 AM EDT Plan of Treatment Health Maintenance Due Date Last Done Comments Anxiety Screening 01/02/1972 Depression Screening 01/02/1972 Hepatitis C Screening 01/02/1972 DTaP,Tdap,Td Vaccine (1 - Tdap) [address] Colonography 1999 Cologuard (FIT-DNA) 1999 Colonoscopy 1999 Colorectal Cancer Screening 1999 Diabetes Screening 1999 Fecal Occult Blood 1999 Sigmoidoscopy 1999 Pneumococcal Vaccine: 50+ (1 of 1 - PCV) 01/02/2004 Shingrix Vaccine (1 of 2) 01/02/2004 Advance Directive Discussion 08/17/2024 Influenza Vaccine (#1) 2025 RSV Vaccine (1 - 1-dose 75+ series) 2029 Insurance BLUE CARD PPO OOS Care Teams Trimmer Meat Relationship Specialty Start Date End Date Eriberto Archer MD PCP - General Family Medicine 10/13/14
--- OUTSIDE RECORDS SUMMARY | 2025-05-21 21:49 | XMS_ITS | Clinical Summary ---
Author Organization [employer] Address [id number] [address] [place] [address] Care Team Providers Care Fisher Sponge Hooking Name Role Phone Eriberto Archer MD Primary Care Provider +2 Allergies Active Allergy Reactions Criticality Noted Date Comments Penicillins 07/27/2022 Medications aspirin 325 mg tablet Take 1 tablet (325 mg total) by mouth in the morning. Active atorvastatin (LIPITOR) 40 mg tablet Take 1 tablet (40 mg total) by mouth in the morning. Active lansoprazole (PREVACID) 15 mg capsule Take 1 capsule (15 mg total) by mouth in the morning. Active levoFLOXacin (LEVAQUIN) 500 mg tablet Take 1 tablet (500 mg total) by mouth in the morning. Active metoprolol tartrate (LOPRESSOR) 25 mg tablet Take 1 tablet (25 mg total) by mouth in the morning and 1 tablet (25 mg total) before bedtime. Active mupirocin (BACTROBAN) 2 % ointment Apply 1 application topically 3 (three) times a day. Active nitroglycerin (NITROSTAT) 0.[address] 1 tablet (0.4 mg total) under the tongue every 5 (five) minutes as needed for chest pain. Active ondansetron (ZOFRAN) 4 mg tablet Take 1 tablet (4 mg total) by mouth every 8 (eight) hours as needed for nausea or vomiting. Active ranolazine (RANEXA) 500 mg 12 hr tablet Take 1 tablet (500 mg total) by mouth in the morning and 1 tablet (500 mg total) before bedtime. Active levothyroxine (SYNTHROID, LEVOTHROID) 50 MCG tablet Take 1 tablet (50 mcg total) by mouth in the morning. Active zolpidem (AMBIEN) 10 mg tablet Take 1 tablet (10 mg total) by mouth nightly as needed for sleep. Active Social History Tobacco Use Types Packs/Day Years Used Date Smoking Tobacco: Never Assessed Sex and Gender Information Value Date Recorded Sex Assigned at Not on file Legal Sex Male 9:45 AM EST Gender Identity Not on file Sexual Orientation Not on file Last Filed Vital Signs Vital Sign Reading Time Taken Comments Blood Pressure 173/75 07/27/2022 9:47 AM EST Pulse 52 07/27/2022 9:47 AM EST Temperature 36.6 C (97.8 F) 07/27/2022 9:47 AM EST Respiratory Rate 16 07/27/2022 9:47 AM EST Oxygen Saturation 99% 07/27/2022 9:47 AM EST Inhaled Oxygen Concentration - - Weight 64.4 kg (142 lb) 07/27/2022 9:47 AM EST Height 172.7 cm (5' 8 ) 07/27/2022 9:47 AM EST Body Mass Index 21.59 07/27/2022 9:47 AM EST Plan of Treatment Health Maintenance Due Date Last Done Comments Depression Screening 1966 Tobacco Screening 1966 DTaP,Tdap and Td Vaccines (1 - Tdap) 1973 Zoster (Shingles) Vaccine (1 of 2) 01/02/2004 Fall Risk Screening 2019 Adult BMI Screening 07/27/2023 07/27/2022 Influenza Vaccine 04/17/2025 Medical Devices Not on file Insurance AUTO INSURANCE [facility] MEDIC[facility] Care Teams Fisher Sponge Hooking Relationship Specialty Start Date End Date Eriberto Archer MD PCP - General Family Medicine 07/27/22
--- NOTE | 2025-05-21 22:32 | ECG_ITS ---
[facility] Test Date: 2025-05-21 Pat Name: [facility] Department: Room: - Gender: Male Strategic Client Executive: : 1955 Requested By: 1030 Order Number: [id number] Reading MD: SAMI ANGEL M.D. Measurements Intervals [place] Rate: 54 P: 22 ND: 152 QRS: 85 QRSD: 82 T: 39 QT: 472 QTc: 458 Interpretive Statements 1100 Sinus rhythm 8304 Long QTc interval 9150 abnormal ECG Compared to ECG 04/20/2022 20:36:01 ST (T wave) deviation no longer present Electronically Signed On 05-22-2025 18:24:09 EDT by SAMI ANGEL M.D.
--- NOTE | 2025-05-21 22:33 | ED.GENADUL1 ---
HPI HPI - General Adult General Chief complaint: Abdominal Pain Stated complaint: ABDOMINAL PAIN Time Seen by Provider: 05/21/25 22:19 Source: patient Mode of arrival: Wheelchair Limitations: no limitations History of Present Illness HPI narrative: 70-year-old male presents for abdominal pain. It started 1 hour ago and earlier today he had no symptoms at all. He points to the suprapubic area of his abdomen and thinks he might have diverticulitis. He states he was nauseous and dry heaving. He states he had bowel movements and initially it was loose and then it became watery. No blood or dark color to the stool. No history of trauma or fever. Related Data Home Medications ?Medication ?Instructions ?Recorded ?Confirmed aspirin 325 mg tablet 325 mg PO DAILY 08/06/23 11/28/23 atorvastatin 40 mg tablet 40 mg PO BEDTIME 08/06/23 11/29/23 carvedilol 25 mg tablet 25 mg PO Q12H 08/06/23 11/28/23 furosemide 20 mg tablet 20 mg PO DAILY PRN edema 08/06/23 11/28/23 lansoprazole 15 mg delayed 15 mg PO Q12H 08/06/23 11/28/23 release,disintegrating tablet levothyroxine 50 mcg tablet 50 mcg PO QDAY 08/06/23 11/28/23 (Synthroid) nitroglycerin 0.4 mg sublingual 0.4 mg sublingual Q5M 08/06/23 11/28/23 tablet ranolazine 500 mg tablet,extended 500 mg PO Q12H 08/06/23 11/28/23 release,12 hr tizanidine 4 mg tablet 4 mg PO BEDTIME 08/06/23 11/28/23 zolpidem 10 mg tablet 10 mg PO QDAY PRN insomnia 08/06/23 11/29/23 celecoxib 100 mg capsule 100 mg PO Q12H 08/31/23 11/28/23 Previous Rx's ?Medication ?Instructions ?Recorded cefdinir 300 mg capsule 600 mg (2 x 300 mg) PO DAILY #10 12/01/23 caps ondansetron 4 mg disintegrating 4 mg PO Q6H PRN nausea and 12/01/23 tablet vomiting #30 tabs vancomycin 125 mg capsule 125 mg PO Q6H 10 days #40 caps 12/01/23 Allergies Allergy/AdvReac Type Severity Reaction Status Date / Time Penicillins Allergy Difficulty Verified 05/21/25 21:54 Breathing Opioid HPI Opioid Management Most Recent Opioid Data: Last Pain Scale 7 05/21/25, 22:29 Last ORT Total Score 3 11/28/23, 17:07 Last ORT Risk Category Low Risk 11/28/23, 17:07 Review of Systems ROS Narrative A ten point review of systems is negative except as noted above. PFSH [facility] Medical History Diverticulitis large intestine ?K57.32 - Diverticulitis of large intestine without perforation or abscess without bleeding (ICD-10) Dehydration ?E86.0 - Dehydration (ICD-10) Leukocytosis ?D72.829 - Elevated white blood cell count, unspecified (ICD-10) Colitis ?K52.9 - Noninfective gastroenteritis and colitis, unspecified (ICD-10) Hypothyroid ?E03.9 - Hypothyroidism, unspecified (ICD-10) Thrombosis ?I82.90 - Acute embolism and thrombosis of unspecified vein (ICD-10) History of angina ?Z86.79 - Personal history of other diseases of the circulatory system (ICD-10) Hypertension ?I10 - Essential (primary) hypertension (ICD-10) Surgical History History of fusion of cervical spine ?Z98.1 - Arthrodesis status (ICD-10) History of appendectomy ?Z90.49 - Acquired absence of other specified parts of digestive tract (ICD-10) Hx of tonsillectomy ?Z90.89 - Acquired absence of other organs (ICD-10) Social History Highest level of school completed/degree received: Master's degree Little interest or pleasure in doing things: not at all Feeling down, depressed, or hopeless: not at all Exam Narrative Exam Narrative: Nurses note and vital signs reviewed and patient is not hypoxic. General:The patient appears uncomfortable and he is shivering. Skin:Warm, dry, no pallor noted.There is no rash noted. Head:Normocephalic, atraumatic Eye: Normal conjunctiva, no drainage Ears, Nose, Mouth, and Throat: oral mucosa is slightly dry. Nares patent. Cardiovascular:Regular Rate and Rhythm Respiratory:Patient is in no distress, no accessory muscle use, lungs are clear to auscultation, no wheezing, rales or rhonchi Back:non-tender GI: Soft and mild tenderness across the lower abdomen Musculoskeletal: The patient has no evidence of calf tenderness, no pitting edema, symmetrical pulses noted bilaterally Neurological:A&O, normal speech Psychiatric:Cooperative Constitutional Vital Signs, click to edit/add: Last Vital Signs Temp 97.0 F L 05/21/25 22:29 Pulse 60 05/22/25 00:01 Resp 16 05/22/25 00:01 BP 144/72 H 05/22/25 02:00 Pulse Ox 100 05/22/25 00:01 O2 Del Method Room Air 05/21/25 22:29 Course Vital Signs Vital signs: Vital Signs Temperature 97.0 F L 05/21/25 22:29 Pulse Rate 60 05/21/25 22:29 Respiratory Rate 26 H 05/21/25 22:29 Blood Pressure 189/73 H 05/21/25 22:29 Pulse Oximetry 100 05/21/25 22:29 Oxygen Delivery Method Room Air 05/21/25 22:29 Temperature 97.0 F L 05/21/25 22:29 Pulse Rate 60 05/22/25 00:01 Respiratory Rate 16 05/22/25 00:01 Blood Pressure 144/72 H 05/22/25 02:00 Pulse Oximetry 100 05/22/25 00:01 Oxygen Delivery Method Room Air 05/21/25 22:29 Medical Decision Making MDM Narrative Medical decision making narrative: Acute uncomplicated diverticulitis and colitis is identified. No evidence of abscess or perforation. WBC 15,000. When the patient arrived to the emergency department he was shivering and had significant pain. He looks and feels much better now. He is sitting upright and smiling and states his pain is much better. Case discussed with Dr. Colon and the patient will be admitted here. Treatment diagnosis and disposition were discussed with the patient. No evidence of bowel ischemia. Differential Diagnosis Differential Diagnosis: Acute diverticulitis, colitis, bowel ischemia Lab Data Lab results reviewed: Yes I reviewed the patient's lab results Labs: Lab Results 05/21/25 05/22/25 Range/Units 22:44 00:24 WBC 15.0 H (4.0-11.0) 10^3/uL RBC 4.64 L (4.70-6.10) 10^6/uL Hgb 15.1 (14.0-18.0) g/dL Hct 43.7 (42.0-54.0) % MCV 94.2 H (80.0-94.0) fL MCH 32.5 (25.9-34.0) pg MCHC 34.6 (29.9-35.2) g/dL RDW 13.2 (11.0-15.0) % Plt Count 164 (150-450) 10^3/uL MPV 10.0 (9.5-13.5) fL Neut % (Auto) 74.4 (43.0-75.0) % Lymph % (Auto) 17.3 L (20.5-60.0) % [place] % (Auto) 5.1 (1.7-12.0) % Eos % (Auto) 1.8 (0.9-7.0) % Baso % (Auto) 0.8 (0.2-2.0) % Neut # (Auto) 11.2 H (1.4-6.5) 10^3/uL Lymph # (Auto) 2.6 (1.2-3.8) 10^3/uL [place] # (Auto) 0.8 (0.3-0.8) 10^3/uL Eos # (Auto) 0.3 (0.0-0.7) 10^3/uL Baso # (Auto) 0.1 (0.0-0.1) 10^3/uL Abs Immat Gran (auto) 0.09 H (0.00-0.03) 10^3/uL Imm/Tot Granulo (auto) 0.6 H (0.0-0.5) % Sodium 140 (136-145) mmol/L Potassium 5.4 H (3.5-5.1) mmol/L Chloride 104 (98-107) mmol/L Carbon Dioxide 21.1 (21.0-32.0) mmol/L Anion Gap 20.3 BUN 25.0 H (7.0-18.0) mg/dL Creatinine 1.58 H (0.70-1.30) mg/dL Est GFR ( Amer) 53 L (>=60 mL/min/1.73m^2) Est GFR (Non-Af Amer) 43 L (>=60 mL/min/1.73m^2) BUN/Creatinine Ratio 15.8 Glucose 177 H (74-106) mg/dL Lactate 3.6 H* (0.4-2.0) mmol/L Calcium 9.6 (8.5-10.1) mg/dL Total Bilirubin 0.8 (0.2-1.0) mg/dL Direct Bilirubin 0.2 (0.0-0.2) mg/dL AST 23 (15-37) U/L ALT 27 (16-63) U/L Alkaline Phosphatase 197 H (46-116) U/L Troponin I High Sens 6.4 (4.0-76.1) pg/mL Total Protein 7.6 (6.4-8.2) g/dL Albumin 3.9 (3.4-5.0) g/dL Globulin 3.7 g/dL Albumin/Globulin Ratio 1.1 Amylase 184 H (25-115) U/L Lipase 24.0 (16.0-77.0) U/L Urine Color Dk. yellow (YELLOW) Urine Clarity Clear (CLEAR) Urine pH 5.5 (5.0-9.0) Ur Specific [place] 1.020 (1.005-1.025) Urine Protein Negative (NEG/TRACE) mg/dL Urine Glucose (UA) Negative (NEGATIVE) mg/dL Urine Ketones 15 A (NEGATIVE) mg/dL Urine Occult Blood Negative (NEGATIVE) Urine Nitrite Negative (NEGATIVE) Urine Bilirubin Small A (NEGATIVE) Urine Urobilinogen 1.0 (0.2-1.0) EU/dL Ur Leukocyte Esterase Negative (NEGATIVE) Urine RBC None seen (0-2) #/HPF Urine WBC 0-2 A (NONE SEEN) #/HPF Ur Squamous Epith Cells None seen (NONE/RARE) #/LPF Ur Transition Epith Cell Rare A (NONE SEEN) #/LPF Urine Crystals None seen (None Seen) #/HPF Urine Bacteria None seen (NONE SEEN) #/HPF Urine Casts None seen (NONE SEEN) #/LPF Urine Mucus None seen (NONE SEEN) Ur Culture Indicated? No Imaging Data CT scan - abdomen: Radiologist's impression: Mild colitis involving the left colon and sigmoid colon segments with features of acute diverticulitis in the left lower quadrant affecting the lower left colon and proximal sigmoid colon segments. No pneumatosis, no features of mesenteric ischemia ECG Data Attestation: I personally reviewed and interpreted this ECG as follows: (EKG on my interpretation shows sinus rhythm with rate of 54 no acute change) Discharge Plan Discharge Chief Complaint: Abdominal Pain Clinical Impression: Acute diverticulitis, Colitis Patient Disposition: Admitted As Inpatient Time of Disposition Decision: 02:58 Condition: Fair
[2025-05-21] MEDS: 0.9 % SODIUM CHLORIDE 1,000 ML 1000 ML IV (23:04)
[2025-05-21 23:19] LABS: Hematocrit 43.7 % (42.0-54.0); Hemoglobin 15.1 g/dL (14.0-18.0); Immature Granulocytes Abs Auto 0.09 10^3/uL (0.00-0.03); Immature Granulocytes Pct Auto 0.6 % (0.0-0.5); Lymphocytes Absolute Auto 2.6 10^3/uL (1.2-3.8); Mean Corpuscular HGB Conc 34.6 g/dL (29.9-35.2); Mean Corpuscular Hemoglobin 32.5 pg (25.9-34.0); Mean Corpuscular Volume 94.2 fL (80.0-94.0); Platelet Count 164 10^3/uL (150-450); Red Blood Count 4.64 10^6/uL (4.70-6.10); White Blood Count 15.0 10^3/uL (4.0-11.0)
[2025-05-21 23:40] LABS: Anion Gap 20.3; Blood Urea Nitrogen 25.0 mg/dL (7.0-18.0); Calcium 9.6 mg/dL (8.5-10.1); Carbon Dioxide 21.1 mmol/L (21.0-32.0); Chloride 104 mmol/L (98-107); Estimated GFR (African America 53 (>=60 mL/min/1.73m^2); Estimated GFR (Non-African Ame 43 (>=60 mL/min/1.73m^2); Glucose 177 mg/dL (74-106); Potassium 5.4 mmol/L (3.5-5.1); Sodium 140 mmol/L (136-145)
[2025-05-21 23:43] LABS: Alanine Aminotransferase 27 U/L (16-63); Albumin Globulin Ratio 1.1; Albumin Level 3.9 g/dL (3.4-5.0); Alkaline Phosphatase 197 U/L (46-116); Amylase 184 U/L (25-115); Aspartate Amino Transferase 23 U/L (15-37); Globulin 3.7 g/dL; Lipase 24.0 U/L (16.0-77.0); Total Protein 7.6 g/dL (6.4-8.2)
[2025-05-21 23:46] LABS: Lactate/Lactic Acid 3.6 mmol/L (0.4-2.0)
[2025-05-22] VITALS (39 sets, daily range): BP systolic 83–193; BP diastolic 41–84; PULSE 52–68; TEMP 36.4–36.7; O2SAT 92–100; BMI 20.5
[2025-05-22] MEDS: MORPHINE SULFATE 4 MG/ML VIAL IV ×2 (00:22→03:44)
[2025-05-22 00:32] LABS: Glucose Urine UA NEGATIVE (NEGATIVE)
[2025-05-22 00:39] LABS: Cast Seen? NONE SEEN #/LPF (NONE SEEN); Crystals Seen? None Seen #/HPF (None Seen); Urine Culture Indicated NO
[2025-05-22] MEDS: CIPROFLOXACIN IN 5 % DEXTROSE 400 MG/200 ML PREMIX 200 MG IV (01:28)
[2025-05-22] MEDS: METRONIDAZOLE/SODIUM CHLORIDE 500 MG/100 ML PREMIX 100 MG IV ×3 (01:28→17:25)
[2025-05-22 03:36] LABS: Lactate/Lactic Acid 0.8 mmol/L (0.4-2.0)
[2025-05-22 07:45] LABS: Hematocrit 41.6 % (42.0-54.0); Hemoglobin 13.8 g/dL (14.0-18.0); Immature Granulocytes Abs Auto 0.04 10^3/uL (0.00-0.03); Immature Granulocytes Pct Auto 0.4 % (0.0-0.5); Lymphocytes Absolute Auto 1.5 10^3/uL (1.2-3.8); Mean Corpuscular HGB Conc 33.2 g/dL (29.9-35.2); Mean Corpuscular Hemoglobin 31.5 pg (25.9-34.0); Mean Corpuscular Volume 95.0 fL (80.0-94.0); Platelet Count 143 10^3/uL (150-450); Red Blood Count 4.38 10^6/uL (4.70-6.10); White Blood Count 11.0 10^3/uL (4.0-11.0)
[2025-05-22 08:03] LABS: Alanine Aminotransferase 19 U/L (16-63); Albumin Globulin Ratio 1.0; Albumin Level 3.1 g/dL (3.4-5.0); Alkaline Phosphatase 132 U/L (46-116); Anion Gap 12.8; Aspartate Amino Transferase 19 U/L (15-37); Blood Urea Nitrogen 22.0 mg/dL (7.0-18.0); Calcium 8.4 mg/dL (8.5-10.1); Carbon Dioxide 25.4 mmol/L (21.0-32.0); Chloride 108 mmol/L (98-107); Estimated GFR (African America >60 (>=60 mL/min/1.73m^2); Estimated GFR (Non-African Ame >60 (>=60 mL/min/1.73m^2); Globulin 3.2 g/dL; Glucose 113 mg/dL (74-106); Magnesium 2.0 mg/dL (1.8-2.4); Potassium 4.2 mmol/L (3.5-5.1); Sodium 142 mmol/L (136-145); Total Protein 6.3 g/dL (6.4-8.2)
[2025-05-22] MEDS: LEVOTHYROXINE SODIUM 25 MCG TABLET 50 MCG PO (08:04)
[2025-05-22] MEDS: ENOXAPARIN SODIUM 40 MG/0.4 ML SYRINGE SUBQ (08:04)
[2025-05-22] MEDS: PANTOPRAZOLE SODIUM 40 MG TABLET.DR PO ×2 (08:04→21:04)
[2025-05-22] MEDS: 0.9 % SODIUM CHLORIDE 1,000 ML 125 ML IV ×2 (08:12→17:25)
[2025-05-22] MEDS: ASPIRIN 325 MG TABLET PO (08:12)
[2025-05-22] MEDS: CARVEDILOL 12.5 MG TABLET PO (08:25)
--- NOTE | 2025-05-22 11:14 | PC.NURSE ---
pt up using bathroom, stool sample collected. 2nd bout of liquid bright red blood, moderate amount. Made Dr Lund, hospitalist, aware.
[2025-05-22 12:27] LABS: C. Difficile PCR NEGATIVE
--- OUTSIDE RECORDS SUMMARY | 2025-05-22 12:31 | XMS_ITS | Clinical Summary ---
Author Organization [employer] Address [facility] [id number] [address] [place] [address] Care Team Providers Care Automatic Centrifugal Station Operator Name Role Phone Eriberto Archer MD Primary Care Provider +8 Allergies Active Allergy Reactions Criticality Noted Date [...] on file Insurance AUTO INSURANCE [facility] MEDIC[facility] Care Teams Automatic Centrifugal Station Operator Relationship Specialty Start Date End Date Eriberto Archer MD PCP - General Family Medicine 07/27/22
--- OUTSIDE RECORDS SUMMARY | 2025-05-22 12:31 | XMS_ITS | Clinical Summary ---
Author Organization [facility] Address [address] [place] [address] Care Team Providers Care Substation Operator Conversion Name Role Phone Unavailable Primary Care Provider Unavailabl e Allergies Active Allergy Reactions Criticality Noted Date Comments Amlodipine GI intolerance Low 05/20/2023 LE swelling Hydrocodone Unknown High 10/25/2014 Nabumetone Other,Unknown High 10/25/2014 Other Reaction(s): difficulty swallowing, Dysphagia Penicillins Unknown,Shortness of breath,Other High 10/25/2014 Medications Ambien 10 MG tablet 1 (one) time each day at the same time. 3 Active ranolazine (Ranexa) 500 MG 12 hr tablet TAKE 1 TABLET TWICE A DAY for 90 3 Active nitroglycerin (Nitrostat) 0.4 MG SL tablet as directed Sublingual 3 Active Synthroid 50 MCG tablet 1 (one) time each day at the same time. 3 Active lansoprazole (Prevacid) [address] capsule Take 15 mg by mouth. Active carvedilol (Coreg) 25 MG tablet every 12 (twelve) hours. 3 Active atorvastatin (Lipitor) 40 MG tablet 1 (one) time each day at the same time. 3 Active aspirin 325 MG tablet 1 (one) time each day at the same time. Active celecoxib (CeleBREX) 100 MG capsule Take 100 mg by mouth in the morning and 100 mg before bedtime. 4 Active Active Problems No known active problems Family History Medical History Relation Name Comments Multiple myeloma Neg Hx Social History Tobacco Use Types Packs/Day Years Used Date Smoking Tobacco: Never Smokeless Tobacco: Never Tobacco Cessation:Counseling Given: Not Answered Alcohol Use Standard Drinks/Week Comments Never 0 (1 standard drink = 0.6 oz pur e alcohol) Sex and Gender Information Value Date Recorded Sex Assigned at Not on file Legal Sex Male 8:31 PM EDT Gender Identity Not on file Sexual Orientation Not on file Last Filed Vital Signs Vital Sign Reading Time Taken Comments Blood Pressure 110/78 08/05/2023 9:47 AM EST Pulse - - Temperature - - Respiratory Rate - - Oxygen Saturation - - Inhaled Oxygen Concentration - - Weight - - Height - - Body Mass Index - - Plan of Treatment Upcoming Encounters Date Type Department Care Team (Late st Contact Info) Description 06/12/2025 9:55 AM EDT Office Visit [facility] [address] [place] [phone] Ora Becker, UPSETTER HELPER-FEEDER OPERATOR [address] [place], [place] [id number] Insurance [employer]
--- OUTSIDE RECORDS SUMMARY | 2025-05-22 12:31 | XMS_ITS | CCD ---
Author Organization [facility] Care Team Providers Care Transmission Operator Name Role Phone GIANNI ., DR HORNER [...] Penicillins; 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: [PENICILLINS] Drug allergy (disorder) 5 [facility] Repository (4 sources) amLODIPine; 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: [AMLODIPINE] Drug Allergy 3 GI intolerance [facility] Repository (5 sources) HYDROcodone; 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: [HYDROCODONE] Drug Allergy 5 Unknown [facility] Repository (4 sources) nabumetone; 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: [NABUMETONE] Drug Allergy 5 Other, Unknown [facility] Repository (3 sources) Penicillins Drug Intolerance 5 Unknown, Shortness of breath, Other [facility] (1 source) nabumetone; 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: [Relafen] Drug Allergy [facility] Repository Medications Current Medications Medication Drug Class(es) [...] disease (4 sources) Atherosclerotic heart disease of [place] coronary artery without angina pectoris; 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: [Unstable [...] Onset: 04-24-2022 Episodic Other aftercare (1 source) [facility] (current) use of aspirin; 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: [LONG-TERM CURRENT USE OF ASPIRIN] Onset: 04-24-2022 Episodic [...] of lidocaine used: 0.6 cc [facility] Healthcare 37on 07-08-2023 37 *Take lasix for 2 da ys then as needed *Limit salt/sodium intake Normal [facility] Office Visiton 07-08-2023 Follow-up visit [id number] Chung Denton 1955 M Date Provider Department Center 07/08/2023 166-BLAYNE DAILY CARD [facility] Family History Problem Relation Age of Onset Heart attack Paternal Grandfather Family Status - Relation Status Age at Paternal Grandfather Level of Service:45393 UT OFFICE/OUTPATIENT ESTABLISHED MOD MDM 30-39 MIN Reason for Visit and Comments: Edema [[id number]] Normal [facility] ANEAbel 06-29-2023 ANES -- Attestation signed by Eliane Murillo MD at 06/29/2023 9:56 AM Eliane Murillo MD, MPH, [facility], [facility], [facility] Interventional Cardiology Pager Email: [email or web address] Patient: Donnie Denton Procedure Information Date/Time: 06/29/23 1030 Procedures: Coronary angiography (Bilateral) - per Maria G in pre-cert at [facility], this has already been authorized thru Aug 2023 - right femoral approach Right heart cath Location: [facility] STATISTICAL CLERK 3 / [facility] (Cath) Providers: Eliane [...] fellow and attending. Additional Equipment Requests Normal [facility] HPon 06-29-2023 -- Attestation signed by Eliane Murillo MD at 06/29/2023 9:57 AM Eliane Murillo MD, MPH, [facility], [facility], [facility] Interventional Cardiology Pager Email: [email or web address] History Of Present Illness Donnie Denton is [...] at [facility] and elected to pursue medical management at [...] treated since 2015. Meaghan Mukherjee DO, MPH Museum Attendant [facility] NURSNOTEon 06-29-2023 NURSNOTE RN educated pt on d/ c instructions. RN encouraged pt to voice any questions or concerns. Pt verbalizes no questions or concerns at this time. Normal [facility] Orders Onlyon 06-17-2023 Orders Only [id number] BertinChung gamboa R 1955 [facility] Provider Department [place] 06/17/2023 Avi-DEIRDRE RIDLEY VALERIANO [facility] Family History Problem Relation Age of Onset Heart attack Paternal Grandfather Family Status - Relation Status Age at Paternal Grandfather [facility] Letter (Out)on 05-26-2023 Letter (Out) [id number] BertinChung R 1955 [facility] Provider Department [place] 05/26/2023 None-None [facility] AUTH MS Medical C Family History Problem Relation Age of Onset Heart attack Paternal Grandfather Family Status - Relation Status Age at Paternal Grandfather Normal [facility] Office Visiton 05-20-2023 Follow-up visit [id number] Chung Denton bee R 1955 [facility] Provider Department [place] 05/20/2023 Richa-ELIANE MURILLO VALERIANO [facility] Family History Problem Relation Age of Onset Heart attack Paternal Grandfather Family Status - Relation Status Age at Paternal Grandfather Level of Service:65505 [place] OFFICE/OUTPATIENT [facility] 60-74 MINUTES [facility] Orders Onlyon 05-20-2023 Orders Only [id number] BertinChung R 1955 [facility] Provider Department [facility] 05/20/2023 Walker-HIMANSHU MCMILLAN VALERIANO [facility] Family History Problem Relation Age of Onset Heart attack Paternal Grandfather Family Status - Relation Status Age at Paternal Grandfather Normal [facility] XR HIP RT 2 3V W PELVISon [...] Date: 2022-11-13 22:38 Normal [facility] XR LSPINE MIN 4 VIEWSon [...] paraspinous abnormality is seen. OTHER: Negative. IMPRESSION: Elac-[id number] degenerative changes Electronically authenticated by: ANTONI TRACEY Date: 2022-11-14 07:58 Normal [facility] CREATININEon 11-11-2022 Creatinine [Mass/Vol] 1.04 mg/dL Normal 0.70-1.30 [facility] Comment on above: Performed By: #### C ASIF #### [facility] Laboratory [address] [place] [address] Dr. Gianni Deluna EGFR-AF [place] >60 Normal >=60 [facility] Comment on above: Performed By: #### C ASIF #### [facility] [address] [place] [address] Dr. Gianni Deluna EGFR-NON AF [place] >60 Normal >=60 [facility] Comment on above: Performed By: #### C ASIF #### [facility] [address] [place] [address] CHEST W CONon [...] by: PA CROW Date: 2022-11-11 11:29 Normal [facility] MRI CSPINE WO CONon 08-14-20 22 MRI [...] Date: 2022-08-14 09:19 Normal [facility] INSULINon 06-04-2022 Insulin 13.5 uIU/mL Normal 2.6-24.9 [facility] Comment on above: Performed By: #### L ACT #### [facility] [address] [place] [address] Dr. Gianni Deluna CBC AUTO DIFFon 06-03-2022 BASO # 0.1 103/ul Normal 0.0-0.1 [facility] Comment on above: Performed By: #### L ACT #### [facility] [address] [place] [address] Dr. Gianni Deluna Basophils/100 WBC (Bld) 1.2 % Normal 0.2-2.0 [facility] Comment on above: Performed By: #### L ACT #### [facility] [address] [place] [address] Dr. Gianni Deluna EO # 0.4 103/ul Normal 0.0-0.7 [facility] Comment on above: Performed By: #### L ACT #### [facility] [address] [place] [address] Dr. Gianni Deluna Eosinophils/100 WBC (Bld) 5.9 % Normal 0.9-7.0 [facility] Comment on above: Performed By: #### L ACT #### [facility] [address] [place] [address] Dr. Gianni Deluna Erythrocyte distribution width (RBC) [Ratio] 13.4 % Normal 11.0-15.0 [facility] Comment on above: Performed By: #### L ACT #### [facility] [address] [place] [address] Dr. Gianni Deluna Hematocrit (Bld) [Volume fraction] 39.6 % Critically low 42.0-54.0 [facility] Comment on above: Performed By: #### L ACT #### [facility] [address] [address] [address] Gianni Deluna Hemoglobin (Bld) [Mass/Vol] 12.8 g/dL Critically low 14.0-18.0 [facility] Comment on above: Performed By: #### L ACT #### [facility] [address] [address] [address] Gianni Deluna IG # 0.04 10e3/ul Critically high 0.00-0.03 [facility] Comment on above: Performed By: #### L ACT #### [facility] [address] [place] [address] Dr. Gianni Deluna IG % 0.7 % Critically high 0.0-0.5 [facility] Comment on above: Performed By: #### L ACT #### [facility] [address] [place] [address] Dr. Gianni Deluna LYMPH # 1.9 103/ul Normal 1.2-3.8 [facility] Comment on above: Performed By: #### L ACT #### [facility] [address] [place] [address] Dr. Gianni Deluna Lymphocytes/100 WBC (Bld) 31.7 % Normal 20.5-60.0 [facility] Comment on above: Performed By: #### L ACT #### [facility] [address] [place] [address] Dr. Gianni Deluna MANUAL DIFF REQ NO Normal [facility] Comment on above: Performed By: #### L ACT #### [facility] [address] [address] [address] Gianni Deluna MCH (RBC) [Entitic mass] 30.2 pg Normal 25.9-34.0 [facility] Comment on above: Performed By: #### L ACT #### [facility] [address] [place] [address] Dr. Gianni Deluna MCHC (RBC) [Mass/Vol] 32.3 g/dL Normal 29.9-35.2 [facility] Comment on above: Performed By: #### L ACT #### [facility] [address] [place] [address] Dr. Gianni Deluna MCV (RBC) [Entitic vol] 93.4 fL Normal 80.0-94.0 [facility] Comment on above: Performed By: #### L ACT #### [facility] [address] [address] [address] Gianni Deluna MONO # 0.7 103/ul Normal 0.3-0.8 [facility] Comment on above: Performed By: #### L ACT #### [facility] [address] [address] [address] Gianni Deluna Monocytes/100 WBC (Bld) 11.9 % Normal 1.7-12.0 [facility] Comment on above: Performed By: #### L ACT #### [facility] [address] [place] [address] Dr. Gianni Dleuna NEUT # 2.9 103/ul Normal 1.4-6.5 [facility] Comment on above: Performed By: #### L ACT #### [facility] [address] [place] [address] Dr. Gianni Deluna Neutrophils/100 WBC (Bld) 48.6 % Normal 43.0-75.0 [facility] Comment on above: Performed By: #### L ACT #### [facility] [address] [place] [address] Dr. Gianni Deluna Platelet mean volume (Bld) [Entitic vol] 9.1 fL Critically low 9.5-13.5 [facility] Comment on above: Performed By: #### L ACT #### [facility] [address] [place] [address] Dr. Gianni Deluna PLT 168 103/ul Normal 150-450 [facility] Comment on above: Performed By: #### L ACT #### [facility] [address] [place] [address] Dr. Gianni Deluna RBC 4.24 106/ul Critically low 4.70-6.10 [facility] Comment on above: Performed By: #### L ACT #### [facility] [address] [place] [address] Dr. Gianni Deluna WBC 6.0 103/ul Normal 4.0-11.0 [facility] Comment on above: Performed By: #### L ACT #### [facility] [address] [place] [address] Dr. Gianni Deluna FREE THYROXINE INDEX T7on FTI 1.91 Normal 1.30-4.50 [facility] Comment on above: Performed By: #### L ACT #### [facility] [address] [place] [address] Dr. Gianni Deluna T3U 36.0 % Normal 33.0-40.0 [facility] Comment on above: Performed By: #### L ACT #### [facility] [address] [place] [address] Dr. Gianni Deluna T4 [Mass/Vol] 5.30 ug/dL Normal 4.50-12.10 [facility] Comment on above: Performed By: #### L ACT #### [facility] [address] [place] [address] Dr. Gianni Deluna GLYCOHEMOGLOBIN A1Con 2021 ADA RECOMMENDATION SEE BELOW Normal [facility] Comment on above: Result Comment: ADA RECOMMENDED LIMIT 4.0 - 6.0 ADA THERAPEUTIC TARGET < 7.0 ACTION SUGGESTED > 7.0 Performed By: #### D DIM #### [facility] [address] [place] [address] Dr. Gianni Deluna Glucose [Mass/Vol] 140 mg/dL Normal [facility] Comment on above: Performed By: #### D DIM #### [facility] [address] [place] [address] Dr. Gianni Deluna HbA1c (Bld) [Mass fraction] 6.5 % Critically high 4.5-6.2 [facility] Comment on above: Performed By: #### D DIM #### [facility] [address] [place] [address] Dr. Gianni Deluna LIPID PROFILEon 06-03-2022 CHOL-HDL RATIO NORM SEE BELOW Normal [facility] Comment on above: Result Comment: 3.3 - 4.4 LOW RISK 4.4 - 7.1 AVERAGE RISK 7.1 - 11.0 MODERATE RISK >11.0 HIGH RISK Performed By: #### T SH, T7, URIC, CMP, LIPID #### [facility] [address] [address] [address] Gianni Deluna Cholesterol [Mass/Vol] 104 mg/dL Normal <=200 [facility] Comment on above: Performed By: #### T SH, T7, URIC, CMP, LIPID #### [facility] [address] [address] [address] Gianni Deluna Cholesterol in HDL [Mass/Vol] 49 mg/dL Normal 40-60 [facility] Comment on above: Performed By: #### T SH, T7, URIC, CMP, LIPID #### [facility] [address] [place] [address] Dr. Gianni Deluna Cholesterol in LDL [Mass/Vol] 46.6 mg/dL Normal [facility] Comment on above: Performed By: #### T SH, T7, URIC, CMP, LIPID #### [facility] [address] [place] [address] Dr. Gianni Deluna Cholesterol.total/Ch olesterol in HDL [Mass ratio] 2.1 {ratio} Normal [facility] Comment on above: Performed By: #### T SH, T7, URIC, CMP, LIPID #### [facility] [address] [place] [address] Dr. Gianni Deluna HDL NORMAL > or = 60 mg/dl - LO W CARDIOVASCULAR RISK <40 mg/dl - HIGH CARDIOVASCULAR RISK Normal [facility] Comment on above: Performed By: #### T SH, T7, URIC, CMP, LIPID #### [facility] [address] [place] [address] Dr. Gianni Deluna LDL CALC NORMAL SEE BELOW Normal [facility] Comment on above: Result Comment: <100 mg/dl OPTIMAL 100 - 129 mg/dl NEAR OR ABOVE OPTIMAL 130 - 159 mg/dl BORDERLINE HIGH 160 - 189 mg/dl HIGH >190 mg/dl VERY HIGH Performed By: #### T SH, T7, URIC, CMP, LIPID #### [facility] [address] [place] [address] Dr. Gianni Deluna Triglyceride [Mass/Vol] 42 mg/dL Normal <=150 [facility] Comment on above: Performed By: #### T SH, T7, URIC, CMP, LIPID #### [facility] [address] [address] [address] Gianni Deluna VLDL CALC 8.4 mg/dL Normal [facility] Comment on above: Performed By: #### T SH, T7, URIC, CMP, LIPID #### [facility] [address] [place] [address] Dr. Gianni Deluna PROF 14(COMP METB)on 06-03- 022 Albumin [Mass/Vol] 2.9 g/dL Critically low 3.4-5.[address] [facility] Comment on above: Performed By: #### T SH, T7, URIC, CMP, LIPID #### [facility] [address] [place] [address] Dr. Gianni Deluna Albumin/Globulin [Mass ratio] 0.8 {ratio} Normal [facility] Comment on above: Performed By: #### T SH, T7, URIC, CMP, LIPID #### [facility] [address] [place] [address] Dr. Gianni Deluna ALP [Catalytic activity/Vol] 127 U/L Critically high 46-116 [facility] Comment on above: Performed By: #### T SH, T7, URIC, CMP, LIPID #### [facility] [address] [place] [address] Dr. Gianni Deluna ALT [Catalytic activity/Vol] 23 U/L Normal 16-63 [facility] Comment on above: Performed By: #### T SH, T7, URIC, CMP, LIPID #### [facility] [address] [place] [address] Dr. Gianni Deluna Anion gap [Moles/Vol] 8.4 mmol/L Normal [facility] Comment on above: Performed By: #### T SH, T7, URIC, CMP, LIPID #### [facility] [address] [place] [address] Dr. Gianni Deluna AST [Catalytic activity/Vol] 21 U/L Normal 15-37 [facility] Comment on above: Performed By: #### T SH, T7, URIC, CMP, LIPID #### [facility] [address] [place] [address] Dr. Gianni Deluna Bilirubin [Mass/Vol] 0.5 mg/dL Normal 0.2-1.0 [facility] Comment on above: Performed By: #### T SH, T7, URIC, CMP, LIPID #### [facility] [address] [place] [address] Dr. Gianni Deluna Calcium [Mass/Vol] 8.3 mg/dL Critically low 8.5-10.1 Th e [facility] Comment on above: Performed By: #### T SH, T7, URIC, CMP, LIPID #### [facility] [address] [place] [address] Dr. Gianni Deluna Chloride [Moles/Vol] 107 mmol/L Normal 98-107 [facility] Comment on above: Performed By: #### T SH, T7, URIC, CMP, LIPID #### [facility] [address] [place] [address] Dr. Gianni Deluna CO2 [Moles/Vol] 30.6 mmol/L Normal 21.0-32.0 [facility] Comment on above: Performed By: #### T SH, T7, URIC, CMP, LIPID #### [facility] [address] [place] [address] Dr. Gianni Deluna Creatinine [Mass/Vol] 0.93 mg/dL Normal 0.70-1.30 [facility] Comment on above: Performed By: #### T SH, T7, URIC, CMP, LIPID #### [facility] [address] [place] [address] Dr. Gianni Deluna EGFR-AF [place] >60 Normal >=60 [facility] Comment on above: Performed By: #### T SH, T7, URIC, CMP, LIPID #### [facility] [address] [place] [address] Dr. Gianni Deluna EGFR-NON AF [place] >60 Normal >=60 [facility] Comment on above: Performed By: #### T SH, T7, URIC, CMP, LIPID #### [facility] [address] [place] [address] Dr. Gianni Deluna Globulin (S) [Mass/Vol] 3.5 g/dL Normal [facility] Comment on above: Performed By: #### T SH, T7, URIC, CMP, LIPID #### [facility] [address] [place] [address] Dr. Gianni Deluna Glucose [Mass/Vol] 114 mg/dL Critically high 74-106 [facility] Comment on above: Performed By: #### T SH, T7, URIC, CMP, LIPID #### [facility] [address] [place] [address] Dr. Gianni Deluna Potassium [Moles/Vol] 4.0 mmol/L Normal 3.5-5.1 [facility] Comment on above: Performed By: #### T SH, T7, URIC, CMP, LIPID #### [facility] [address] [place] [address] Dr. Gianni Deluna Protein [Mass/Vol] 6.4 g/dL Normal 6.4-8.2 [facility] Comment on above: Performed By: #### T SH, T7, URIC, CMP, LIPID #### [facility] [address] [place] [address] Dr. Gianni Deluna Sodium [Moles/Vol] 142 mmol/L Normal 136-145 [facility] Comment on above: Performed By: #### T SH, T7, URIC, CMP, LIPID #### [facility] [address] [place] [address] Dr. Gianni Deluna Urea nitrogen [Mass/Vol] 11.0 mg/dL Normal 7.0-18.0 [facility] Comment on above: Performed By: #### T SH, T7, URIC, CMP, LIPID #### [facility] [address] [place] [address] Dr. Gianni Deluna Urea nitrogen/Creatinine [Mass ratio] 11.8 mg/mg Normal [facility] Comment on above: Performed By: #### T SH, T7, URIC, CMP, LIPID #### [facility] [address] [place] [address] Dr. Gianni Deluna TSHon 06-03-2022 TSH 0.814 uIU/mL Normal 0.358-3.740 [facility] Comment on above: Performed By: #### L ACT #### [facility] [address] [place] [address] Dr. Gianni Deluna URIC ACID SERUMon 06-03-2022 Urate [Mass/Vol] 5.2 mg/dL Normal 3.5-7.2 [facility] Comment on above: Performed By: #### T SH, T7, URIC, CMP, LIPID #### [facility] [address] [address] [address] Gianni Deluna CARDIAC ALEX 3-6on 2 CK [Catalytic activity/Vol] 82 U/L Normal 39-308 [facility] Comment on above: Performed By: #### L ACT #### [facility] [address] [place] [address] Dr. Gianni Deluna CK.MB [Mass/Vol] 2.40 ng/mL Normal <=3.60 [facility] Comment on above: Performed By: #### L ACT #### [facility] [address] [place] [address] Dr. Gianni Deluna HSTROP 8.6 pg/mL Normal 4.0-76.1 [facility] Comment on above: Result Comment: CUT- OFF POINTS HAVE BEEN ESTABLISHED BASED ON THE FOURTH UNIVERSAL DEFINITIONS OF MYOCARDIAL INFARCTION. THE UPPER REFERENCE LIMIT (URL) OF TROPONIN, DEFINED THE 99TH PERCENTILE OF cTnI DISTRIBUTION IN A REFERENCE POPULATION, HAS BEEN CONFIRMED THE DECISION THRESHOLD FOR OR DIAGNOSIS. Performed By: #### L ACT #### [facility] [address] [place] [address] ABD/PELV W CONon [...] by: JAIMIE COOPER Date: 2022-04-21 00:38 Normal [facility] LACTATE/LACTIC ACIDon 2021 Lactate [Moles/Vol] 2.2 mmol/L Critically high 0.4-1.9 [facility] Comment on above: Performed By: #### L ACT #### [facility] [address] [place] [address] Dr. Gianni Deluna AMYLASEon 04-20-2022 Amylase [Catalytic activity/Vol] 139 U/L Critically high 25-115 [facility] Comment on above: Performed By: #### L ACT #### [facility] [address] [address] [address] Gianni Deluna CARDIAC ALEX ADMITon 022 CK [Catalytic activity/Vol] 88 U/L Normal 39-308 [facility] Comment on above: Performed By: #### C MADM #### [facility] [address] [address] [address] Gianni Deluna CK.MB [Mass/Vol] 1.82 ng/mL Normal <=3.60 [facility] Comment on above: Performed By: #### C MADM #### [facility] [address] [address] [address] Gianni Deluna HSTROP 7.2 pg/mL Normal 4.0-76.1 [facility] Comment on above: Result Comment: CUT- OFF POINTS HAVE BEEN ESTABLISHED BASED ON THE FOURTH UNIVERSAL DEFINITIONS OF MYOCARDIAL INFARCTION. THE UPPER REFERENCE LIMIT (URL) OF TROPONIN, DEFINED THE 99TH PERCENTILE OF cTnI DISTRIBUTION IN A REFERENCE POPULATION, HAS BEEN CONFIRMED THE DECISION THRESHOLD FOR OR DIAGNOSIS. Performed By: #### C MADM #### [facility] [address] [place] [address] Dr. Gianni Deluna FILIBERTO 93 ng/mL Normal 16-96 [facility] Comment on above: Performed By: #### C MADM #### [facility] [address] [place] [address] Dr. Gianni Deluna CBC AUTO DIFFon 04-20-2022 BASO # 0.0 103/ul Normal 0.0-0.1 [facility] Comment on above: Performed By: #### C BC #### [facility] [address] [place] [address] Dr. Gianni Deluna Basophils/100 WBC (Bld) 0.3 % Normal 0.2-2.0 [facility] Comment on above: Performed By: #### C BC #### [facility] [address] [place] [address] Dr. Ginani Deluna EO # 0.0 103/ul Normal 0.0-0.7 [facility] Comment on above: Performed By: #### C BC #### [facility] [address] [place] [address] Dr. Gianni Deluna Eosinophils/100 WBC (Bld) 0.1 % Critically low 0.9-7.0 [facility] Comment on above: Performed By: #### C BC #### [facility] [address] [place] [address] Dr. Gianni Deluna Erythrocyte distribution width (RBC) [Ratio] 13.5 % Normal 11.0-15.0 [facility] Comment on above: Performed By: #### C BC #### [facility] [address] [place] [address] Dr. Gianni Deluna Hematocrit (Bld) [Volume fraction] 45.8 % Normal 42.0-54.0 [facility] Comment on above: Performed By: #### C BC #### [facility] [address] [address] [address] Gianni Deluna Hemoglobin (Bld) [Mass/Vol] 15.3 g/dL Normal 14.0-18.0 [facility] Comment on above: Performed By: #### C BC #### [facility] [address] [address] [address] Gianni Deluna IG # 0.05 10e3/ul Critically high 0.00-0.03 [facility] Comment on above: Performed By: #### C BC #### [facility] [address] [address] [address] Gianni Deluna IG % 0.5 % Normal 0.0-0.5 [facility] Comment on above: Performed By: #### C BC #### [facility] [address] [place] [address] Dr. Gianni Deluna LYMPH # 0.8 103/ul Critically low 1.2-3.8 [facility] Comment on above: Performed By: #### C BC #### [facility] [address] [place] [address] Dr. Gianni Deluna Lymphocytes/100 WBC (Bld) 7.7 % Critically low 20.5-60.0 [facility] Comment on above: Performed By: #### C BC #### [facility] [address] [place] [address] Dr. Gianni Deluna MANUAL DIFF REQ NO Normal [facility] Comment on above: Performed By: #### C BC #### [facility] [address] [address] [address] Gianni Deluna MCH (RBC) [Entitic mass] 30.4 pg Normal 25.9-34.0 [facility] Comment on above: Performed By: #### C BC #### [facility] [address] [place] [address] Dr. Gianni Deluna MCHC (RBC) [Mass/Vol] 33.4 g/dL Normal 29.9-35.2 [facility] Comment on above: Performed By: #### C BC #### [facility] [id number] Gianni Deluna MCV (RBC) [Entitic vol] 90.9 fL Normal 80.0-94.0 [facility] Comment on above: Performed By: #### C BC #### [facility] [address] [address] [address] Gianni Deluna MONO # 0.4 103/ul Normal 0.3-0.8 [facility] Comment on above: Performed By: #### C BC #### [facility] [address] [address] [address] Gianni Deluna Monocytes/100 WBC (Bld) 3.3 % Normal 1.7-12.0 [facility] Comment on above: Performed By: #### C BC #### [facility] [address] [place] [address] Dr. Gianni Deluna NEUT # 9.7 103/ul Critically high 1.4-6.5 [facility] Comment on above: Performed By: #### C BC #### [facility] [address] [place] [address] Dr. Gianni Deluna Neutrophils/100 WBC (Bld) 88.1 % Critically high 43.0-75.0 [facility] Comment on above: Performed By: #### C BC #### [facility] [address] [place], [place] [id number] Dr. Gianni Deluna Platelet mean volume (Bld) [Entitic vol] 8.9 fL Critically low 9.5-13.5 [facility] Comment on above: Performed By: #### C BC #### [facility] [address] [place], [place] [id number] Dr. Gianni Deluna PLT 198 103/ul Normal 150-450 [facility] Comment on above: Performed By: #### C BC #### [facility] [id number] [address] Gianni Deluna RBC 5.04 106/ul Normal 4.70-6.10 [facility] Comment on above: Performed By: #### C BC #### [facility] [address] [place] [address] Dr. Gianni Deluna WBC 11.0 103/ul Normal 4.0-11.0 [facility] Comment on above: Performed By: #### C BC #### [facility] [address] [place], [place] [address] Dr. Gianni Deluna Covid-19 PCR ([facility])on SARS-CoV-2 (COVID-19) RNA NICHOLE+probe Ql (Unsp spec) Not detected Normal NOT DETECTED [facility] Comment on above: Result Comment: [...] for this test is supported by the Headlight Adjuster of Health and Human Service's declaration that [...] By: #### C VDTBH #### [facility] [address] [address] [address] Gianni Deluna D-DIMERon 04-20-2022 D-DIMER 0.37 mg/L FEU Normal <=0.59 [facility] Comment on above: Performed By: #### D DIM #### [facility] [address] [address] [address] Gianni Deluna D-DIMER COMMENTS SEE BELOW Normal [facility] Comment on above: Result Comment: Incr [...] By: #### D DIM #### [facility] [address] [place] [address] Dr. Gianni Deluna LACTATE/LACTIC ACIDon 2021 Lactate [Moles/Vol] 2.3 mmol/L Critically high 0.4-1.9 [facility] Comment on above: Performed By: #### L ACT #### [facility] [address] [place] [address] Dr. Gianni Deluna LIPASEon 04-20-2022 Lipase [Catalytic activity/Vol] 48.0 U/L Critically low 73.0-393.0 [facility] Comment on above: Performed By: #### L ACT #### [facility] [address] [place] [address] Dr. Gianni Delnua PROF 14(COMP METB)on 022 Albumin [Mass/Vol] 3.9 g/dL Normal 3.4-5.0 [facility] Comment on above: Performed By: #### L ACT #### [facility] [address] [place] [address] Dr. Gianni Deluna Albumin/Globulin [Mass ratio] 1.0 {ratio} Normal [facility] Comment on above: Performed By: #### L ACT #### [facility] [address] [place] [address] Dr. Gianni Deluna ALP [Catalytic activity/Vol] 127 U/L Critically high 46-116 [facility] Comment on above: Performed By: #### L ACT #### [facility] [address] [place] [address] Dr. Gianni Deluna ALT [Catalytic activity/Vol] 27 U/L Normal 16-63 [facility] Comment on above: Performed By: #### L ACT #### [facility] [address] [place] [address] Dr. Gianni Deluna Anion gap [Moles/Vol] 15.9 mmol/L Normal [facility] Comment on above: Performed By: #### L ACT #### [facility] [address] [address] [address] Gianni Deluna AST [Catalytic activity/Vol] 27 U/L Normal 15-37 [facility] Comment on above: Performed By: #### L ACT #### [facility] [address] [address] [address] Gianni Deluna Bilirubin [Mass/Vol] 0.9 mg/dL Normal 0.2-1.0 [facility] Comment on above: Performed By: #### L ACT #### [facility] [address] [address] [address] Gianni Deluna Calcium [Mass/Vol] 8.9 mg/dL Normal 8.5-10.1 [facility] Comment on above: Performed By: #### L ACT #### [facility] [address] [address] [address] Gianni Deluna Chloride [Moles/Vol] 103 mmol/L Normal 98-107 [facility] Comment on above: Performed By: #### L ACT #### [facility] [address] [address] [address] Gianni Deluna CO2 [Moles/Vol] 24.2 mmol/L Normal 21.0-32.0 [facility] Comment on above: Performed By: #### L ACT #### [facility] [address] [address] [address] Gianni Deluna Creatinine [Mass/Vol] 1.27 mg/dL Normal 0.70-1.30 [facility] Comment on above: Performed By: #### L ACT #### [facility] [address] [address] [address] Gianni Deluna EGFR-AF PAPUA [place] GUINEAN >60 Normal >=60 [facility] Comment on above: Performed By: #### L ACT #### [facility] [address] [address] [address] Gianni Deluna EGFR-NON AF PAPUA [place] 56 mL/min/1.73m2 Critically low >=60 [facility] Comment on above: Performed By: #### L ACT #### [facility] [address] [address] [address] Gianni Deluna Globulin (S) [Mass/Vol] 3.9 g/dL Normal [facility] Comment on above: Performed By: #### L ACT #### [facility] [address] [address] [address] Gianni Deluna Glucose [Mass/Vol] 145 mg/dL Critically high 74-106 [facility] Comment on above: Performed By: #### L ACT #### [facility] [address] [address] [address] Gianni Deluna Potassium [Moles/Vol] 4.1 mmol/L Normal 3.5-5.1 [facility] Comment on above: Performed By: #### L ACT #### [facility] [address] [address] [address] Gianni Deluna Protein [Mass/Vol] 7.8 g/dL Normal 6.4-8.2 [facility] Comment on above: Performed By: #### L ACT #### [facility] [address] [address] [address] Gianni Deluna Sodium [Moles/Vol] 139 mmol/L Normal 136-145 [facility] Comment on above: Performed By: #### L ACT #### [facility] [address] [address] [address] Gianni Deluna Urea nitrogen [Mass/Vol] 22.0 mg/dL Critically high 7.0-18.0 [facility] Comment on above: Performed By: #### L ACT #### [facility] [address] [address] [address] Gianni Deluna Urea nitrogen/Creatinine [Mass ratio] 17.3 mg/mg Normal [facility] Comment on above: Performed By: #### L ACT #### [facility] [address] [address] [address] Gianni Deluna XR ABD FLAT UP_PA [...] by: JAIMIE COOPER Date: 2022-04-20 21:58 Normal [facility] US RICHELLE DOP LEG LTon [...] LAWANDA VEE Date: 2022-03-18 13:25 Normal [facility] US RICHELLE DOP LEG LTon [...] by: ANTONI JOLLEY Date: 2021-12-06 22:57 Normal [facility] Vital Signs Date Time Vital Sign Value Performing Clinician Faci lity 09-07-2024 17:32-0500 Diastolic blood pressure 78 mm[Hg] [facility] 09-07-2024 17:32-0500 Systolic blood pressure 180 mm[Hg] [facility] 09-07-2024 17:14-0500 Body height 172.72 cm [facility] 09-07-2024 17:14-0500 Body mass index (BMI) [Ratio] 19 kg/m2 [facility] 09-07-2024 17:14-0500 Body temperature 98.5 [degF] [facility] 09-07-2024 17:14-0500 Body weight 56.69 kg [facility] 09-07-2024 17:14-0500 Heart rate 49 /min [facility] 09-07-2024 17:14-0500 Respiratory rate 18 /min [facility] 09-07-2024 17:14-0500 SaO2% (BldA) [Mass fraction] 99 % [facility] Encounters Encounter Date Encounter Type Care Provider Facility Start: 02-22-2025 ambulatory Elissa Abbott lity:Jimbo Start: 02-08-2025 ambulatory Elissa Wu Facilit y:[facility]bo Start: 09-07-2024 End: 09-07-2024 ambulatory [facility] Work Phone: Start: 09-07-2024 End: 09-07-2024 Patient encounter procedure [facility] Work Phone: Start: 06-09-2024 End: 06-09-2024 [place]aleboo flowsisidro Becker NON DESTRUCTIVE EVALUATION SPECIALIST-CLINICAL DOCUMENTATION CLERK Work Phone: [facility] Start: 06-09-2024 End: 06-09-2024 Bamboo flowsheet Ora Becker NON DESTRUCTIVE EVALUATION SPECIALIST-CLINICAL DOCUMENTATION CLERK Work Phone: [facility] Start: 06-09-2024 End: 06-09-2024 Office outpatient visit 15 minutes Ora Becker NON DESTRUCTIVE EVALUATION SPECIALIST-CLINICAL DOCUMENTATION CLERK Work Phone: [facility] Comment on above: Melanocytic nevus of trunk; Seborrheic keratosis; Lentigines; Actinic keratosis; Neoplasm of unspecified behavior of bone, soft tissue, and skin Start: 06-09-2024 End: 06-09-2024 ambulatory ORA BECKER Not Available Start: 10-26-2023 End: 10-27-2023 [facility] Start: 09-21-2023 End: 09-22-2023 ambulatory Stefany Ballard MD Facility: [facility] Start: 08-31-2023 End: 09-01-2023 ambulatory [facility] Start: 08-05-2023 End: 08-05-2023 ambulatory DAXA RAMÍREZ Not Available Start: 07-17-2023 ambulatory Evens Archer MD Facility:[facility] Start: 07-08-2023 End: 07-08-2023 ambulatory [facility] Start: 06-29-2023 End: 06-29-2023 ambulatory [facility] Start: 06-29-2023 End: 06-29-2023 Encounter for other preprocedural examination [facility] Start: 06-17-2023 Encounter for other preprocedural examination [facility] Start: 05-20-2023 End: 05-20-2023 ambulatory [facility] Start: 11-13-2022 End: 11-14-[address] EVENS [...] 06-09-2024 SKIN / NAIL BIOPSY Shira Becker NON DESTRUCTIVE EVALUATION SPECIALIST-CLINICAL DOCUMENTATION CLERK Work Phone: Start: 06-09-2024 CRYOTHERAPY SKIN LESION Ora Becker NON DESTRUCTIVE EVALUATION SPECIALIST-CLINICAL DOCUMENTATION CLERK Work Phone: Start: 06-03-[address] FRANCO ARCHER . Comment on above: Performed By: #### P [facility] #### [facility] [address] [place] [address] Dr. Gianni Deluna Plan of Treatment Date Care Activity Detail Author Start: 06-12-2025 End: 06-12-2025 Patient encounter procedure 06/12/2025 9:55 AM EDT Office Visit [facility] [address] [place] [address] Ora Becker, NON DESTRUCTIVE EVALUATION SPECIALIST-CLINICAL DOCUMENTATION CLERK [address] [place] [address] [facility] Start: 06-09-2024 End: 06-09-2024 Patient encounter procedure 06/09/2024 10:55 AM EDT Office Visit [facility] [address] [place] [address] Ora Becker, NON DESTRUCTIVE EVALUATION SPECIALIST-CLINICAL DOCUMENTATION CLERK [address] [place] [address] Arrived [facility] Comment on [...] 2021 Medicare (Managed Care) [employer] [id number] 1959 Self-pay [id number] 1959 Unknown [id number] 1954 Unknown [id number] [id number]. 2.59 1954 Unknown [id number] 2.16.840.1.424667.3.579. 2.59 1954 Unknown [id number] 2.16.840.1.563704.3.579. 2.59 1954 Unknown [id number] 2.16.840.1.234706.3.579. 2.59 1954 Unknown [id number] 2.16.840.1.244740.3.579. 2.59 1954 Unknown [id number] 2.16.840.1.867003.3.579. 2.59 1954 Unknown [id number] 2.16.840.1.610186.3.579. 2.593 1954 Unknown [id number] 2.16.840.1.967545.3.579. 2.593 1954 Unknown [id number] 2.16.840.1.049760.3.579. 2.196 1954 Unknown [id number] 2.16.840.1.787512.3.579. 2.196 1954 Unknown [id number] 2.16.840.1.189427.3.579. 2.196 1954 Unknown [id number] 2.16.840.1.270212.3.579. 2.1259 1954 Unknown [id number] 2.16.840.1.574380.3.579. 2.1259 1954 Unknown [id number] 2.16.840.1.880008.3.579. 2.727 Social History Date Type Detail Facility Start: 08-05-2023 End: 09-07-2024 Tobacco smoking status KYIS Never smoked tobacco [facility] Start: 08-05-2023 Tobacco use and exposure Smokeless tobacco non-user [facility] Start: 08-05-2023 End: 06-09-2024 History of Social function [facility] Start: 08-05-2023 End: 06-09-2024 Tobacco use panel [facility] Start: 1955 Sex assigned at Not on file [facility] Start: 06-09-2024 Alcoholic beverage intake Lifetime non-drinker (finding) [facility] Start: 09-07-2024 Sex Male (finding) [facility] Start: 1955 Sex Assigned At Male F [facility] Medical Equipment Procedure Code Equipment Code Equipment Origin al Text Equipment Identifier Dates Blood Sugar Diagnostic (Onetouch Ultra Test) strip Start: 09-07-2024 History of Present illness Narrative 06-09-2024 Ora Becker, NON DESTRUCTIVE EVALUATION SPECIALIST-CLINICAL DOCUMENTATION CLERK - 06/09/2024 10:55 AM EDT Note Date [...] limited to risks of scarring, darker or television engineering teacher pigmentary changes, recurrence, incomplete removal and infection. [...] pending biopsy result documented in this encounter [facility] Progress note 07-08-2023 Note Date & Type Note Facility 07-08-2023 Note [facility] SUBJECTIVE Chief Complaint Patient presents with [...] Final Atrial Rate 06/29/2023 47 BPM Final UT Interval 06/29/2023 154 ms Final QRS DURATION 06/29/2023 82 ms Final QT Interval 06/29/2023 482 ms Final QTC CALCULATION(BAZETT) 06/29/2023 426 ms Final P [facility] 06/29/2023 16 degrees Final R-[facility] 06/29/2023 55 degrees Final T Wave [facility] 06/29/2023 41 degrees Final No results found for: EXTCMP, BMPR1A, CBCDIF, BNP, BNP, LASAP, RED Testing/Procedures: No echocardiogram results found for the past 14 days No echocardiogram results found for the past 12 months Encounter Date: 06/29/23 ECG 12 lead Result Value Ventricular Rate 47 Atrial Rate 47 UT Interval 154 QR (more content not included)... [facility] Progress note 07-08-2023 Note Date & Type [...] All other systems reviewed and are negative. [facility] Progress note 06-29-2023 Note Date & Type [...] inhibitor Follow-up with Dr. Murillo in the [place] office in the next 2 to 4 weeks PROCEDURES: Ultrasound-guided access to the right common femoral artery, limited femoral angiography, ultrasound-guided access to the right common femoral vein, right heart catheterization, bilateral selective coronary angiography, placement of a 6 Montenegrin Mynx replanter closure device METHODS: After risks, benefits, and [...] micropuncture kit was upsized to a 6 Montenegrin 11 cm sheath. Angiography via the sheath [...] procedure. All catheters were removed. A 5 Montenegrin Mynx closure device was deployed per protocol [...] device. INDICATIONS: Preoperative evaluation, coronary artery disease. [facility] Progress note 05-20-2023 Note Date & Type Note Facility 05-20-2023 Note [facility] Cardiology Clinic Note Chief Complaint: New patient here to establish care. Ref from Dr. Archer for surgery clearance. He has hx of CAD and previously followed with [facility] back in 2014. He has [...] [place] [facility] [place]. It was [...] seen at [facility]; single-vessel coronary artery disease with a preserved [...] LAD. This wo (more content not included)... [facility] Evaluation note Note Date & Type Note Facility Evaluation note Diagnosis Melanocytic nevus of trunk Benign neoplasm of skin of trunk, except scrotum Seborrheic keratosis Lentigines Actinic keratosis Neoplasm of unspecified behavior of bone, soft tissue, and skin documented in this encounter [facility] Evaluation note Note Date & Type Note Facility Evaluation note No assessment information availa [facility] Work Phone: Summary Purpose Family History [...] content) DATE CREATED AUTHOR 11/21/2022 [facility] Sl[facility] DATE CREATED AUTHOR AUTHOR'S ORGANIZ ATION 07/10/2023 [facility] DATE CREATED AUTHOR AUTHOR'S ORGANIZ ATION 11/03/2023 [facility] DATE CREATED AUTHOR AUTHOR'S ORGANIZ ATION 06/11/2024 [facility] DATE CREATED AUTHOR AUTHOR'S ORGANIZ ATION 02/23/2025 [facility] Care Teams (unrecognized sec tion and content) [...] BE BASED ON THE PRIMARY CLINICAL RECORDS. [employer] provides no warranty or guarantee of the accuracy or completeness of information in this document.
--- OUTSIDE RECORDS SUMMARY | 2025-05-22 12:31 | XMS_ITS | Patient Health Record ---
Author Organization [facility] [place] Address [address] [place] [address] Care Team Providers Care Manager Of It Name Role Phone GianniKaleb Primary Care Provider [phone] Allergies Allergen (clinical drug ingredient) Drug/Non Drug Allergy documented on EMR Reaction Allergy Type Onset Date Status hydrocodone Hydrocodone unknown Drug Allergy Act rolando Penicillin syncope Drug Allergy Active nabumetone Relafen difficulty swallowing Drug Allergy Active Results Component Value Reference Range Notes CBC AUTO DIFF Reviewed date:09/20/2024 02:09:55 PM Interpretation: Performing Lab: Notes/Report: [facility] , White Blood Count 6.3 4.0-11.0 10 3/uL Red Blood Count 4.22 4.70-6.10 10 6/uL Hemoglobin 13.2 14.0-18.0 g/dL Hematocrit 40.3 42.0-54.0 % Mean Corpuscular Volume 95.5 80.0-94.0 fL Mean Corpuscular Hemoglobin 31.3 25.9-34.0 pg Mean Corpuscular HGB Conc 32.8 29.9-35.2 g/dL Red Cell Distribution Width 13.4 11.0-15.0 % Platelet Count 143 150-450 10 3/uL Mean Platelet Volume 9.7 9.5-13.5 fL Neutrophils Percent Auto 46.4 43.0-75.0 % Lymphocytes Percent Auto 27.9 20.5-60.0 % Monocytes Percent Auto 8.0 1.7-12.0 % Eosinophils Percent Auto 15.8 0.9-7.0 % Basophils Percent Auto 1.4 0.2-2.0 % Immature Granulocytes Pct Auto 0.5 0.0-0.5 % Neutrophils Absolute Auto 2.9 1.4-6.5 10 3/uL Lymphocytes Absolute Auto 1.8 1.2-3.8 10 3/uL Monocytes Absolute Auto 0.5 0.3-0.8 10 3/uL Eosinophils Absolute Auto 1.0 0.0-0.7 10 3/uL Basophils Absolute Auto 0.1 0.0-0.1 10 3/uL Immature Granulocytes Abs Auto 0.03 0.00-0.03 10 3/uL Performing Lab: see note ML - [facility] LB PSA SCREENING Reviewed date:09/20/2024 02:09:56 PM Interpretation: Performing Lab: Notes/Report: [facility] , Prostate Specific Antigen Scrn 2.05 <=4.00 ng/mL Performing Lab: see note - [facility] LB AMYLASE Reviewed date:05/22/2025 12:29:01 PM Interpretation: Performing Lab: Notes/Report: [facility] , Amylase 184 25-115 U/L Performing Lab: see note ML - [facility] LB CBC AUTO DIFF Reviewed date:05/22/2025 12:29:02 PM Interpretation: Performing Lab: Notes/Report: [facility] , White Blood Count 15.0 4.0-11.0 10 3/uL Red Blood Count 4.64 4.70-6.10 10 6/uL Hemoglobin 15.1 14.0-18.0 g/dL Hematocrit 43.7 42.0-54.0 % Mean Corpuscular Volume 94.2 80.0-94.0 fL Mean Corpuscular Hemoglobin 32.5 25.9-34.0 pg Mean Corpuscular HGB Conc 34.6 29.9-35.2 g/dL Red Cell Distribution Width 13.2 11.0-15.0 % Platelet Count 164 150-450 10 3/uL Mean Platelet Volume 10.0 9.5-13.5 fL Neutrophils Percent Auto 74.4 43.0-75.0 % Lymphocytes Percent Auto 17.3 20.5-60.0 % Monocytes Percent Auto 5.1 1.7-12.0 % Eosinophils Percent Auto 1.8 0.9-7.0 % Basophils Percent Auto 0.8 0.2-2.0 % Immature Granulocytes Pct Auto 0.6 0.0-0.5 % Neutrophils Absolute Auto 11.2 1.4-6.5 10 3/uL Lymphocytes Absolute Auto 2.6 1.2-3.8 10 3/uL Monocytes Absolute Auto 0.8 0.3-0.8 10 3/uL Eosinophils Absolute Auto 0.3 0.0-0.7 10 3/uL Basophils Absolute Auto 0.1 0.0-0.1 10 3/uL Immature Granulocytes Abs Auto 0.09 0.00-0.03 10 3/uL Performing Lab: see note ML - [facility] LB LACTATE or LACTIC ACID Reviewed date:05/22/2025 12:29:02 PM Interpretation: Performing Lab: Notes/Report: [facility] , Lactate/Lactic Acid 3.6 0.4-2.0 mmol/L RESULTS CALLED TO CYNTHIA BRUNNER RN @BY Carley Tuttle at [phone] Performing Lab: see note ML - [facility] LB LIPASE Reviewed date:05/22/2025 12:29:02 PM Interpretation: Performing Lab: Notes/Report: [facility] , Lipase 24.0 16.0-77.0 U/L Performing Lab: see note ML - [facility] LB LIVER PROFILE Reviewed date:05/22/2025 12:29:02 PM Interpretation: Performing Lab: Notes/Report: [facility] , Bilirubin Total 0.8 0.2-1.0 mg/dL Bilirubin Direct 0.2 0.0-0.2 mg/dL Aspartate Amino Transferase 23 15-37 U/L Alanine Aminotransferase 27 16-63 U/L Alkaline Phosphatase 197 46-116 U/L Total Protein 7.6 6.4-8.2 g/dL Albumin Level 3.9 3.4-5.0 g/dL Globulin 3.7 Albumin Globulin Ratio 1.1 Performing Lab: see note ML - [facility] LB PROF CHEM 8 (BAS METB) Reviewed date:05/22/2025 12:29:02 PM Interpretation: Performing Lab: Notes/Report: [facility] , Sodium 140 136-145 mmol/L Potassium 5.4 3.5-5.1 mmol/L Chloride 104 98-107 mmol/L Carbon Dioxide 21.1 21.0-32.0 mmol/L Anion Gap 20.3 Glucose 177 74-106 mg/dL Blood Urea Nitrogen 25.0 7.0-18.0 mg/dL Creatinine 1.58 0.70-1.30 mg/dL Estimated GFR ( Nancy 53 >=60 mL/min/1.73m 2 Estimated GFR (Non- Elvira 43 >=60 mL/min/1.73m 2 BUN Creatinine Ratio 15.8 Calcium 9.6 8.5-10.1 mg/dL Performing Lab: see note ML - [facility] LB Troponin I High Sensitivity Reviewed date:05/22/2025 12:29:02 PM Interpretation: Performing Lab: Notes/Report: [facility] , Troponin I High Sensitivity 6.4 4.0-76.1 pg/mL CUT-OFF POINTS HAVE BEEN ESTABLISHED BASED ON THE FOURTH UNIVERSAL DEFINITION OF MYOCARDIAL INFARCTION. THE UPPER REFERENCE LIMIT (URL) OF TROPONIN, DEFINED THE 99TH PERCENTILE OF cTnI DISTRIBUTION IN A REFERENCE POPULATION, HAS BEEN CONFIRMED THE DECISION THRESHOLD FOR CA DIAGNOSIS. 99TH PERCENTILE = 76.2 PG/ML NOTE: HIGH-SENSITIVITY TROPONIN ASSAY IS NOT INTENDED TO BE USED IN ISOLATION BUT SHOULD BE INTERPRETED IN CONJUNCTION WITH OTHER DIAGNOSTIC AND CLINICAL INFORMATION. Performing Lab: see note - [facility] LB ECG 12 lead Reviewed date:05/22/2025 12:29:02 PM Interpretation: Performing Lab: Notes/Report: Source Facility: [place] [address] Electrocardiograph Report Draft Patient: DONNIE DENTON MR#: [id number] : 1955 Acct:[id number] Age/Sex: 70 / M ADM Date: 05/21/25 Loc: ER Attending Dr: Ordering Physician: Ayan Gaitan M.D. 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0 % Mean Corpuscular Volume 95.0 80.0-94.0 fL Mean Corpuscular Hemoglobin 31.5 25.9-34.0 pg Mean Corpuscular HGB Conc 33.2 29.9-35.2 g/dL Red Cell Distribution Width 13.2 11.0-15.0 % Platelet Count 143 150-450 10 3/uL Mean Platelet Volume 9.7 9.5-13.5 fL Neutrophils Percent Auto 76.7 43.0-75.0 % Lymphocytes Percent Auto 13.4 20.5-60.0 % Monocytes Percent Auto 8.6 1.7-12.0 % Eosinophils Percent Auto 0.4 0.9-7.0 % Basophils Percent Auto 0.5 0.2-2.0 % Immature Granulocytes Pct Auto 0.4 0.0-0.5 % Neutrophils Absolute Auto 8.5 1.4-6.5 10 3/uL Lymphocytes Absolute Auto 1.5 1.2-3.8 10 3/uL Monocytes Absolute Auto 1.0 0.3-0.8 10 3/uL Eosinophils Absolute Auto 0.0 0.0-0.7 10 3/uL Basophils Absolute Auto 0.1 0.0-0.1 10 3/uL Immature Granulocytes Abs Auto 0.04 0.00-0.03 10 3/uL Performing Lab: see note ML - [facility] LB LACTATE or LACTIC ACID Reviewed date:05/22/2025 12:29:01 PM Interpretation: Performing Lab: Notes/Report: [facility] , Lactate/Lactic Acid 0.8 0.4-2.0 mmol/L Performing Lab: see note ML - [facility] LB MAGNESIUM Reviewed date:05/22/2025 12:29:01 PM Interpretation: Performing Lab: Notes/Report: [facility] , Magnesium 2.0 1.8-2.4 mg/dL Performing Lab: see note ML - [facility] LB PHOSPHORUS Reviewed date:05/22/2025 12:29:01 PM Interpretation: Performing Lab: Notes/Report: [facility] , Phosphorus 3.7 2.6-4.7 mg/dL Performing Lab: see note ML - [facility] LB PROF 14(COMP METB) Reviewed date:05/22/2025 12:29:01 PM Interpretation: Performing Lab: Notes/Report: [facility] , Sodium 142 136-145 mmol/L Potassium 4.2 3.5-5.1 mmol/L Chloride 108 98-107 mmol/L Carbon Dioxide 25.4 21.0-32.0 mmol/L Anion Gap 12.8 Glucose 113 74-106 mg/dL Blood Urea Nitrogen 22.0 7.0-18.0 mg/dL Creatinine 1.15 0.70-1.30 mg/dL Estimated GFR ( Nancy >60 >=60 mL/min/1.73m 2 Estimated GFR (Non- Elvira >60 >=60 mL/min/1.73m 2 BUN Creatinine Ratio 19.1 Calcium 8.4 8.5-10.1 mg/dL Bilirubin Total 0.6 0.2-1.0 mg/dL Aspartate Amino Transferase 19 15-37 U/L Alanine Aminotransferase 19 16-63 U/L Alkaline Phosphatase 132 46-116 U/L Total Protein 6.3 6.4-8.2 g/dL Albumin Level 3.1 3.4-5.0 g/dL Globulin 3.2 Albumin Globulin Ratio 1.0 Performing Lab: see note ML - [facility] LB UA RANDOM W or MICROSCOPIC Reviewed date:05/22/2025 12:29:01 PM Interpretation: Performing Lab: Notes/Report: [facility] , Color Urine DK. YELLOW YELLOW Clarity Urine CLEAR CLEAR Specific [place] Urine 1.020 1.005-1.025 pH Urine 5.5 5.0-9.0 Protein Urine NEGATIVE NEG/TRACE mg/dL Glucose Urine UA NEGATIVE NEGATIVE mg/dL Bilirubin Urine SMALL NEGATIVE Ketones Urine 15 NEGATIVE mg/dL Blood Urine NEGATIVE NEGATIVE Nitrite Urine NEGATIVE NEGATIVE Urobilinogen Urine 1.0 0.2-1.0 EU/dL Leukocyte Esterase Urine NEGATIVE NEGATIVE WBC Urine 0-2 NONE SEEN #/HPF RBC Urine NONE SEEN 0-2 #/HPF Bacteria Urine NONE SEEN NONE SEEN #/HPF Mucus Urine NONE SEEN NONE SEEN Squamous Epithelial Cell Urine NONE SEEN NONE/RARE #/LPF Transitional Epi Cells Urine RARE NONE SEEN #/LPF Crystals Seen? None Seen None Seen #/HPF Cast Seen? NONE SEEN NONE SEEN #/LPF Urine Culture Indicated NO Performing Lab: see note [facility] CA 19-9 Reviewed date:09/21/2024 10:46:50 AM Interpretation: Performing Lab: Notes/Report: [place] , [place] 19-9 9 0-35 U/mL [facility] [employer] Electrochemiluminescence Immunoassay (ECLIA) Values obtained with different assay methods or kits cannot be used interchangeably. Results cannot be interpreted as absolute evidence of the presence or absence of malignant disease. Performed at: [address] [id number] [place] [employer]: Mark Rock PhD, Phone: [phone] Performing Lab: see note [facility] CEA Reviewed date:09/21/2024 10:46:50 AM Interpretation: Performing Lab: Notes/Report: [facility] , CEA 1.2 0.0-4.7 ng/mL Nonsmokers <3.9 Smokers <5.6 [employer] [employer] Electrochemiluminescence Immunoassay (ECLIA) Values obtained with different assay methods or kits cannot be used interchangeably. Results cannot be interpreted as absolute evidence of the presence or absence of malignant disease. Performing Lab: see note [facility] URIC ACID SERUM Reviewed date:09/20/2024 02:09:56 PM Interpretation: Performing Lab: Notes/Report: [facility] , Uric Acid 5.6 3.5-7.2 mg/dL Performing Lab: see note [facility] LB TSH Reviewed date:09/20/2024 02:09:56 PM Interpretation: Performing Lab: Notes/Report: [facility] , Thyroid Stimulating Hormone 2.193 0.358-3.740 uIU/mL Performing Lab: see note - [facility] LB T4 Reviewed date:09/20/2024 02:09:56 PM Interpretation: Performing Lab: Notes/Report: [facility] , T4 Thyroxine 6.70 4.50-12.10 ug/dL Performing Lab: see note - [facility] LB PROF 14(COMP METB) Reviewed date:09/20/2024 02:09:55 PM Interpretation: Performing Lab: Notes/Report: [facility] , Sodium 144 136-145 mmol/L Potassium 4.2 3.5-5.1 mmol/L Chloride 108 98-107 mmol/L Carbon Dioxide 29.7 21.0-32.0 mmol/L Anion Gap 10.5 Glucose 100 74-106 mg/dL Blood Urea Nitrogen 15.0 7.0-18.0 mg/dL Creatinine 1.22 0.70-1.30 mg/dL Estimated GFR ( Nancy >60 >=60 mL/min/1.73m 2 Estimated GFR (Non- Elvira 59 >=60 mL/min/1.73m 2 BUN Creatinine Ratio 12.3 Calcium 8.9 8.5-10.1 mg/dL Bilirubin Total 0.8 0.2-1.0 mg/dL Aspartate Amino Transferase 17 15-37 U/L Alanine Aminotransferase 17 16-63 U/L Alkaline Phosphatase 138 46-116 U/L Total Protein 6.4 6.4-8.2 g/dL Albumin Level 3.2 3.4-5.0 g/dL Globulin 3.2 Albumin Globulin Ratio 1.0 Performing Lab: see note ML - [facility] LB LIPID PROFILE Reviewed date:09/20/2024 02:09:55 PM Interpretation: Performing Lab: Notes/Report: [facility] , Triglycerides 40 <=150 mg/dL Cholesterol 119 <=200 mg/dL HDL Cholesterol 58 40-60 mg/dL > or =60 mg/dl - LOW CARDIOVASCULAR RISK <40 mg/dl - HIGH CARDIOVASCULAR RISK LDL Cholesterol Calculated 53.0 <100 mg/dl OPTIMAL 100-129 mg/dl NEAR OR ABOVE OPTIMAL 130-159 mg/dl BORDERLINE HIGH 160-189 mg/dl HIGH >190 mg/dl VERY HIGH VLDL CHOLESTEROL 8.0 Chol HDL Ratio 2.1 3.3 - 4.4 LOW RISK 4.4 - 7.1 AVERAGE RISK 7.1 - 11.0 MODERATE RISK >11.0 HIGH RISK Performing Lab: see note ML - [facility] LB INSULIN Reviewed date:09/21/2024 10:46:50 AM Interpretation: Performing Lab: [facility]Report: [facility] , Insulin 6.0 2.6-24.9 uIU/mL Performed at: [facility] [address] [id number] [place] [employer]: Mark Rock PhD, Phone: [phone] Performing Lab: see note - [facility] LB GLYCOHEMOGLOBIN A1C Reviewed date:09/20/2024 02:09:55 PM Interpretation: Performing Lab: Notes/Report: [facility] , Glycohemoglobin A1C 5.8 4.5-6.2 % ADA RECOMMENDED LIMIT 4.0 - 6.0 ADA THERAPEUTIC TARGET < 7.0 ACTION SUGGESTED > 7.0 Estimated Average Glucose 120 Performing Lab: see note - [facility] FREE T3 Reviewed date:09/20/2024 02:09:55 PM Interpretation: Performing Lab: Notes/Report: [facility] , Free T3 2.03 2.18-3.98 pg/mL Performing Lab: see note ML - [facility] LB LIPASE Reviewed date:09/20/2024 02:09:56 PM Interpretation: Performing Lab: Notes/Report: [facility] , Lipase 21.0 16.0-77.0 U/L Performing Lab: see note ML - [facility] LB AMYLASE Reviewed date:09/20/2024 02:09:56 PM Interpretation: Performing Lab: Notes/Report: [facility] , Amylase 70 25-115 U/L Performing Lab: see note ML - [facility] LB Reason For Referral Diagnosis 1 Difficulty swallowin g (R13.10) Referral Organization [facility] Medicine Referring Provider First Name Kaleb Referring Provider Last Name Gianni Referring Provider Speciality Family [facility] icine Referred Provider Ravin Karimi Referred Provider Specialty Gastroentero logy Referral Priority Routine Medications Medication SIG (Take, Route, Frequency, Duration) Notes Start Date End Date Status Carvedilol 3.125 MG 1 tablet with food O rally Twice a day; Duration: 30 days 02/07/2025 Active Zolpidem Tartrate 10 MG 1 tablet at bedt dewey as needed Orally Once a day; Duration: 90 days 03/03/2025 Active Levothyroxine Sodium 50 MCG TAKE 1 TABLE T BY MOUTH ONCE DAILY IN THE MORNING ON AN EMPTY STOMACH; Duration: 90 days Active Aspirin 325 MG 1 tablet Orally Once a day Active Mupirocin 2 % 1 application Manhole Stripper ally Twice a day; Duration: 5 days 03/08/2024 Active Atorvastatin Calcium 40 MG Take 1 tablet by mouth once daily for 90 days; Duration: 90 Active Nitroglycerin 0.4 MG as directed Sublingual Active One Touch Delica Lancets - use 1 lancet daily to check blood glucose level; Duration: 90 days Active Lasix 20 MG 1 tablet Orally Once a day; Duration: 30 days 07/16/2023 Active tiZANidine HCl 4 MG 2 tabs Orally qhs; Duration: 30 days 03/27/2025 Active CeleBREX 100 MG 1 capsule with food Orally Once a day; Duration: 30 days 09/19/2024 Active One Touch Ultra Test Strips - 1 tid Active Ketoconazole 2 % 1 application Manhole Stripper ally bid; Duration: 14 days 09/19/2024 Active One Touch/One Touch II Starter - as directed In Vitro; Duration: 1 days 11/27/2023 Active Lansoprazole 15 MG 1 capsule before a m eal Orally bid Active Ranolazine ER 500 MG TAKE 1 TABLET TWICE A DAY; Duration: 90 Active Social History Tobacco Use: Social History Observation Description Date Details (start date - stop date) Never Smoker NA - NA Tobacco Use/Smoking Question Answer Notes Patient is a nonsmoker Alcohol Screen (Audit-C) Question Answer Notes Did you have a drink containing alcohol in the p ast year? No Points 0 Interpretation Negative AUDIT-C (Standard) Question Answer Notes Did you have a drink containing alcohol in the p ast year? No Points 0 Interpretation Negative Problems Problem Type SNOMED Code ICD Code Onset Dates Problem Status W/U Status Risk Notes Problem Essential hypertension (78949815) Essential (primary) hypertension (I10) Active confirmed Problem Malnutrition of moderate degree (Osorio: 60% to less than 75% of standard weight) (70459052) Moderate protein-calorie malnutrition (E44.0) Active confirmed Problem Insomnia (399894576) Insomnia, unspecified (G47.00) Active confirmed Problem Insomnia (384102111) Insomnia du e to medical condition (G47.01) Active confirmed Problem Peripheral vertigo (76247526) Other peripheral vertigo, unspecified ear (H81.399) Active confirmed Problem Hearing loss (48539719) Unspecified hearing loss, left ear (H91.92) Active confirmed Problem Unstable angina (0039057) Unstable angina (I20.0) Active confirmed Problem Sialolithiasis (82885021) Sialolithiasis (K11.5) Active confirmed Problem Actinic keratosis (417092) Actinic keratosis (L57.0) Active confirmed Problem Arthralgia of the pelvic region and thigh (650950577) Pain in right hip (M25.551) Active confirmed Problem Lumbar radiculopathy (852668642) Radiculopathy, lumbar region (M54.16) Active confirmed Problem Chest pain (27972429) Chest pain , unspecified (R07.9) Active confirmed Problem Traumatic amputation , finger, through metacarpophalangeal joint (230376730) Complete traumatic metacarpophalangeal amputation of unspecified finger, initial encounter (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.119A) Active confirmed Problem sprain of left hip (10867259236384779) Other sprain of left hip, initial encounter (S73.192A) Active confirmed Problem Hypertension (76096611) Hypertension (I10) Active confirmed Problem Gastroesophageal reflux disease (581346199) GERD (gastroesophageal reflux disease) (K21.9) Active confirmed Problem Cervical radiculopathy (57122750) Cervical radiculopathy (M54.12) Active confirmed Problem History of hernia repair (41726390369066) H/O hernia repair (V45.89) Active confirmed Problem Neck pain (43302760) Neck pain (M54.2) Active c onfirmed Problem Edema (16276025) Edema (R60.9) Active confirmed Problem Dyspnea on exertion (40111303) Dyspnea on exertion (R06.09) Active confirmed Problem Gout (16202348) Gout (M10.9) Active confirmed Problem Dyspnea (128530776) Dyspnea (R06.00) Active con firmed Problem Insomnia (577986854) Insomnia (G47.00) Active c onfirmed Problem Hematuria (14014721) Hematuria (R31.9) Active c onfirmed Problem Sinusitis (93994544) Sinusitis (J32.9) Active c onfirmed Problem Foot pain (91533975) Foot pain (M79.673) Active confirmed Problem Constipation (13878231) Constipation (K59.00) Active confirmed Problem Skin lesion (63653101) Skin lesion (L98.9) Active confirmed Problem Acute bronchitis (15166346) Acute bronchitis (J20.9) Active confirmed Problem Urticaria (118256002) Urticaria (L50.9) Active confirmed Problem Ureteral calculus (18144297) Ureteral calculus (N20.1) Active confirmed Problem Acquired hypothyroidism (649185315) Acquired hypothyroidism (E03.9) Active confirmed Problem Arthralgia of the pelvic region and thigh (201393787) Right hip pain (M25.551) Active confirmed Problem Allergic reaction (097133977) Allergic reaction (T78.40XA) Active confirmed Problem Cellulitis (730452005) Cellulitis (L03.90) Active confirmed Problem Conjunctivitis (6219214) Conjunctivitis (H10.9) Active confirmed Problem Nasal vestibulitis (79035840) Nasal vestibulitis (J34.89) Active confirmed Problem Diverticulitis of colon (798740091) Diverticulitis large intestine (K57.32) Active confirmed Problem Gastroenteritis (49377335) Gastroenteritis (K52.9) Active confirmed Problem Dyshidrotic eczema (784778152) Dyshidrotic eczema (L30.1) Active confirmed Problem Diverticulitis of colon (864796971) Diverticulitis of colon (K57.32) Active confirmed Problem Difficulty swallowin g (374711212) Difficulty swallowing (R13.10) Active confirmed Problem Disorder of soft tissue (32018154) Limb swelling (M79.89) Active confirmed Problem Cervical spondylosis without myelopathy (209398710) Spondylosis, cervical (M47.812) Active confirmed Problem Single vessel coronary artery disease (065072060) Single vessel coronary artery disease (I25.10) Active confirmed Problem Hyperlipidaemia (67867774) Hyperlipidemia, unspecified hyperlipidemia type (E78.5) Active confirmed Problem Hearing loss of left ear (690758528) Hearing loss of left ear (H91.92) Active confirmed Problem Shoulder impingement syndrome (774798194) Shoulder impingement syndrome (M75.40) Active confirmed Problem Leukocytosis (299870537) Elevated WBCs (D72.829) Active confirmed Problem Clostridium difficil e colitis (disorder) (856608906) C. difficile colitis (A04.72) Active confirmed Problem Pulmonary hypertension (35577313) Pulmonary hypertension, unspecified (I27.20) Active confirmed Problem Thrombosis of superficial vein of lower limb (752757496) Embolism and thrombosis of superficial veins of left lower extremity (I82.812) Active confirmed Problem Type II diabetes mellitus without complication (002394090) Diabetes (E11.9) Active confirmed Problem Diabetes mellitus (50198675) Diabetes mellitus (E11.9) Active confirmed Problem Disease caused by Severe acute respiratory syndrome coronavirus 2 (disorder) (181600430) COVID-19 virus infection (U07.1) Active confirmed Problem Low back pain (finding) (537559509) Other low back pain (M54.59) Active confirmed Vital Signs Temperature 97.6 degrees Fahrenheit 01/16/2025 Blood pressure diastolic 72 mm Hg 02/24/2025 Height 67 in 02/24/2025 Blood pressure systolic 122 mm Hg 02/24/2025 Weight 130.0 lbs 02/07/2025 BMI 20.36 kg/m2 02/07/2025 Encounters Encounter Location Date Provider Diagnosis [facility] [address] [place] [address] 04/05/2025 Kaleb Archer Diabetes E11.9 [facility] [address] [place] [address] 05/22/2025 Kaleb Archer [facility] [address] [place] [address] 02/10/2025 Kaleb Archer [facility] [address] [place] [address] 02/24/2025 Kaleb Archer [facility] [address] [place] [address] 02/28/2025 Kaleb Archer Pulmonary hypertensi on, unspecified I27.20 [facility] [address] [place] [address] 03/02/2025 Kaleb Hoy GERD (gastroesophage al reflux disease) K21.9 [facility] [address] [facility] [place] [address] 03/03/2025 Kaleb Hoy Pulmonary hypertensi on, unspecified I27.20 [facility] [address] [facility] [place] [address] 03/27/2025 Kaleb Hoy Diabetes E11.9 [facility] [address] [facility] [place] [address] 01/02/2025 Kaleb Hoy Pulmonary hypertens ion, unspecified I27.20 [facility] [address] [facility] [place] [address] 01/16/2025 Kaleb Hoy [facility] [address] [facility] [place] [address] 01/16/2025 Kaleb Hoy [facility] [address] [facility] [place] [address] 01/23/2025 Kaleb Hoy [facility] [address] [facility] [place] [address] 01/30/2025 Kaleb Hoy Pulmonary hypertensi on, unspecified I27.20 [facility] [address] [facility] [place] [address] 02/07/2025 Kaleb Hoy Difficulty swallowin g R13.10 [facility] [address] [facility] [place] [address] 08/01/2024 Kaleb Hoy [facility] [address] [facility] [place] [address] 09/20/2024 Kaleb Hoy [facility] [address] [facility] [place] [address] 09/21/2024 Kaleb Hoy [facility] [address] [facility] [place] [address] 10/05/2024 Kaleb Hoy [facility] [address] [facility] [place] [address] 10/31/2024 Kaleb Hoy Pulmonary hypertensi on, unspecified I27.20 [facility] [address] [facility] [place] [address] 11/28/2024 Kaleb Hoy Pulmonary hypertensi on, unspecified I27.20 [facility] [address] [facility] [place] [address] 06/28/2024 Kaleb Hoy [facility] [address] [facility] [place] [address] 10/05/2024 Kaleb Hoy Hypertension I10 [facility] [address] [facility] [place] [address] 02/10/2025 Kaleb Hoy Hypertension I10 [facility] [address] [facility] [place] [address] 02/24/2025 Kaleb Hoy Hypertension I10 [facility] [address] [facility] [place] [address] 09/19/2024 Kaleb Hoy Pulmonary hypertensi on, unspecified I27.20 ; Diabetes E11.9 ; Diabetes mellitus E11.9 ; Tinea corporis B35.4 and Weight loss R63.4 [facility] [address] [facility] [place] [address] 01/16/2025 Kaleb Hoy Unstable angina I20. 0 and Acute bronchitis, unspecified organism J20.9 [address] [place] [address] 02/07/2025 Kaleb Hoy GERD (gastroesophage al reflux disease) K21.9 Assessments Encounter Date Diagnosis (ICD Code) Assessment Notes Treatment Notes Treatment Clinical Notes Section Notes 09/19/2024 Pulmonary hypertension, unspecified (ICD-10 - I27.20) 02/07/2025 GERD (gastroesophagea l reflux disease) (ICD-10 - K21.9) 02/10/2025 Hypertension (ICD-10 - I10) 02/24/2025 Hypertension (ICD-10 - I10) 10/31/2024 Pulmonary hypertension, unspecified (ICD-10 - I27.20) 11/28/2024 Pulmonary hypertension, unspecified (ICD-10 - I27.20) 01/02/2025 Pulmonary hypertension, unspecified (ICD-10 - I27.20) 01/30/2025 Pulmonary hypertension, unspecified (ICD-10 - I27.20) 02/07/2025 Difficulty swallowing (ICD-10 - R13.10) 02/28/2025 Pulmonary hypertension, unspecified (ICD-10 - I27.20) 03/02/2025 GERD (gastroesophagea l reflux disease) (ICD-10 - K21.9) 03/03/2025 Pulmonary hypertension, unspecified (ICD-10 - I27.20) 03/27/2025 Diabetes (ICD-10 - E11.9) 04/05/2025 Diabetes (ICD-10 - E11.9) 10/05/2024 Hypertension (ICD-10 - I10) 01/16/2025 Unstable angina (ICD-10 - I20.0) 01/16/2025 Acute bronchitis, unspecified organism (ICD-10 - J20.9) Rest and drink more liquids, especially water. You may use a humidifier or vaporizer to help keep the drainage moist. Nnie-jgz-ngnqsae Nasal Saline may help the stuffy and runny nose. Use Ibuprofen and or Tylenol as needed for fever, chills, body aches or pain. Children 5 years old should not be given wdkc-twr-brcghtd cough and cold medications such as guaifenesin and dextromethorphan. If you're over age 5, you may try fieh-sbj-ufrdtyb cold medications such as guaifenesin and dextromethorphan, or multi-symptom cold reliever such as Dayquil to help reduce the symptoms. Antibiotics have been prescribed. You should take these until completed and follow the directions. Antibiotics can sometimes cause upset stomach, and in rare cases, serious allergic reactions or serious gastrointestinal problems. If you start having severe abdominal pain, severe vomiting, or bloody diarrhea, you should be reevaluated by your physician or urgent care immediately. Follow up with your Primary Care Provider or return to clinic if symptoms do not improve within 3-5 days. If you develop severe symptoms such as shortness of breath, repeated vomiting, coughing up blood, or chest pain you should go to the emergency room or call 911 09/19/2024 Diabetes (ICD-10 - E11.9) 09/19/2024 Diabetes mellitus (ICD-10 - E11.9) 09/19/2024 Tinea corporis (ICD-10 - B35.4) 09/19/2024 Weight loss (ICD-10 - R63.4) Plan Of Treatment Pending Test Test Name Order Date HEMOGLOBIN A1C (GLYCO) 09/19/2024 INSULIN, TOTAL 09/19/2024 LIPID PANEL (CHOL/TRIG/HDL/LDL) 09/19/19 25 CBC WITH DIFF 09/19/2024 URIC ACID 09/19/2024 US Lower Extremity LT 01/14/2024 US Lower Extremity RT 01/14/2024 PSA, TOTAL 09/19/2024 STOOL OCCULT BLOOD 09/19/2024 XR Upper GI w/ Esophogram 02/07/2025 CA 19-9 09/19/2024 CEA 09/19/2024 MRI LSPINE WO CON 12/29/2022 MRI LSPINE WO CON 07/17/2023 THYROID PANEL (T4/TSH/FREE T3) C. Difficile PCR 05/22/2025 CMP (COMP MET ELLIOTT) w/eGFR CKD-EPI 2024 Insurance Providers Payer Name Payer Address Payer Phone Subscriber Number Group Number Insured Name Patient Relationship to Insured Coverage Start Date Coverage End Date [employer]AN [address] [place] [address] [id number] [id number] Donnie Denton Self - patient is the insured 4 Medical (General) History Medical History History ICD Code Dyshidrosis [pompholyx] L30.1 Insomnia, unspecified G47.00 Dizziness and giddiness R42 Chest pain, unspecified R07.9 Kidney stone 592.0 Amputation finger, initial encounter S68 .119A Sialolithiasis K11.5 Hematuria R31.9 Allergic reaction T78.40XA Sinusitis J32.9 Other low back pain M54.59 Pain in right hip M25.551 Cervical radiculopathy M54.12 Embolism and thrombosis of superficial v eins of left lower extremity I82.812 Limb swelling M79.89 Skin lesion L98.9 Nasal vestibulitis J34.89 Constipation K59.00 COVID-19 virus infection U07.1 Dyshidrotic eczema L30.1 Hearing loss of left ear H91.92 Actinic keratosis L57.0 Acute bronchitis J20.9 Insomnia due to medical condition G47.01 Other peripheral vertigo, unspecified ea r H81.399 Gastroenteritis K52.9 Dyspnea on exertion R06.09 Dyspnea R06.00 Ureteral calculus N20.1 Diverticulitis of colon K57.32 Cervical radiculopathy M54.12 Spondylosis, cervical M47.812 Neck pain M54.2 Shoulder impingement syndrome M75.40 Urticaria L50.9 Foot pain M79.673 Hypertension I10 H/O hernia repair V45.89 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 difficile colitis A04.72 Surgical History Surgery Date(Month/Year) Coronary Angiography, Right Heart Cath 1 08/29/2022 C-Spine surgery Finger Reattachment Appendectomy [facility] Hospitalization History Reason Date(Month/Year)
--- OUTSIDE RECORDS SUMMARY | 2025-05-22 12:31 | XMS_ITS | Clinical Summary ---
Author Organization [facility] Address [address] [place] [address] Care Team Providers Care Sash Repairer Name Role Phone Eriberto Archer MD Primary Care Provider [phone] Allergies Active Allergy Reactions Criticality Noted Date [...] Insurance BLUE CARD PPO OOS Care Teams Sash Repairer Relationship Specialty Start Date End Date Eriberto Archer MD PCP - General Family Medicine 10/13/14
--- OUTSIDE RECORDS SUMMARY | 2025-05-22 12:31 | XMS_ITS | Clinical Summary ---
Author Organization [facility] Address [address] [place] [address] Care Team Providers Care Veterans Adviser Name Role Phone Eriberto Archer MD Primary Care Provider [phone] Allergies Active Allergy Reactions Criticality Noted Date [...] topic Insurance [employer]AGE Care Teams Veterans Adviser Relationship Specialty Start Date End Date Eriberto Archer MD [address] [facility] [place] [address] PCP - General 05/20/23
--- OUTSIDE RECORDS SUMMARY | 2025-05-22 12:33 | XMS_ITS | CCD ---
Author Organization [facility] Care Team Providers Care Demand Generator Manager Name Role Phone GIANNI ., DR HORNER [...] Penicillins; 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: [PENICILLINS] Drug allergy (disorder) 5 [facility] Repository (4 sources) amLODIPine; 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: [AMLODIPINE] Drug Allergy 3 GI intolerance [facility] Repository (5 sources) HYDROcodone; 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: [HYDROCODONE] Drug Allergy 5 Unknown [facility] Repository (4 sources) nabumetone; 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: [NABUMETONE] Drug Allergy 5 Other, Unknown [facility] Repository (3 sources) Penicillins Drug Intolerance 5 Unknown, Shortness of breath, Other [facility] (1 source) nabumetone; 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: [Relafen] Drug Allergy [facility] Repository Medications Current Medications Medication Drug Class(es) [...] 12:00am Start: 06-07-2024 take 1 capsule by [facility] in the morning celecoxib (CeleBREX) 100 MG [...] disease (4 sources) Atherosclerotic heart disease of [place] coronary artery without angina pectoris; 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: [Unstable [...] 04-24-2022 Episodic Other aftercare (1 source) senior living (current) use of aspirin; 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: [ASSISTED CURRENT USE OF ASPIRIN] Onset: 04-24-2022 Episodic [...] of lidocaine used: 0.6 cc [facility] 37on 07-08-2023 37 *Take lasix for 2 da ys then as needed *Limit salt/sodium intake Normal [facility] Office Visiton 07-08-2023 Follow-up visit [id number] Chung Denton 1955 M Date Provider Department Center 07/08/2023 166-BLAYNE DAILY CARD [facility] Family History Problem Relation Age of Onset Heart attack Paternal Grandfather Family Status - Relation Status Age at Paternal Grandfather Level of Service:[id number] [place] OFFICE/OUTPATIENT ESTABLISHED MOD MDM 30-39 MIN Reason for Visit and Comments: Edema [[id number]] Normal [facility] ANEAbel 06-29-2023 ANES -- Attestation signed by Eliane Murillo MD at 06/29/2023 9:56 AM Eliane Murillo MD, MPH, [facility], [facility], [facility] Interventional Cardiology Pager Email: [email or web address] Patient: Donnie Denton Procedure Information Date/Time: 06/29/23 1030 Procedures: Coronary angiography (Bilateral) - per Maria G in pre-cert at [facility], this has already been authorized thru Aug 2023 - right femoral approach Right heart cath Location: [facility] EMBEDDED PROCESSOR 3 / [facility] (Cath) Providers: Eliane Murillo [...] fellow and attending. Additional Equipment Requests Normal [facility] HPon 06-29-2023 -- Attestation signed by Eliane Murillo MD at 06/29/2023 9:57 AM Eliane Murillo MD, MPH, [facility], [facility], [facility] Interventional Cardiology Pager Email: [email or web address] History Of Present Illness Donnie [...] He was evaluated by cardiothoracic surgery at [facility] and elected to pursue medical management [...] treated since 2015. Meaghan Mukherjee DO, MPH Sound Effects Person [facility] NURSNOTEon 06-29-2023 NURSNOTE RN educated pt on d/ c instructions. RN encouraged pt to voice any questions or concerns. Pt verbalizes no questions or concerns at this time. Normal [facility] Orders Onlyon 06-17-2023 Orders Only [id number] BertinChung gamboa R 1955 [facility] Provider Department [place] 06/17/2023 Avi-DEIRDRE RIDLEY VALERIANO [facility] Family History Problem Relation Age of Onset Heart attack Paternal Grandfather Family Status - Relation Status Age at Paternal Grandfather [facility] Letter (Out)on 05-26-2023 Letter (Out) [id number] BertinChung R 1955 [facility] Provider Department [place] 05/26/2023 None-None [facility] AUTH PR Medical C Family History Problem Relation Age of Onset Heart attack Paternal Grandfather Family Status - Relation Status Age at Paternal Grandfather Normal [facility] Office Visiton 05-20-2023 Follow-up visit [id number] Chung Denton bee R 1955 [facility] Provider Department [place] 05/20/2023 Richa-ELIANE MURILLO VALERIANO [facility] Family History Problem Relation Age of Onset Heart attack Paternal Grandfather Family Status - Relation Status Age at Paternal Grandfather Level of Service:[id number] [place] OFFICE/OUTPATIENT [facility] 60-74 MINUTES [facility] Orders Onlyon 05-20-2023 Orders Only [id number] BertinChung R 1955 [facility] Provider Department Center 05/20/2023 Walker-HIMANSHU MCMILLAN VALERIANO [facility] Family History Problem Relation Age of Onset Heart attack Paternal Grandfather Family Status - Relation Status Age at Paternal Grandfather Normal [facility] XR HIP RT 2 3V W PELVISon [...] ANTONI PENALOZA Date: 2022-11-13 22:38 Normal [facility] XR LSPINE MIN 4 VIEWSon 10-17 XR [...] paraspinous abnormality is seen. OTHER: Negative. IMPRESSION: Vygr-ys-lwrdwhxh degenerative changes Electronically authenticated by: ANTONI TRACEY Date: 2022-11-14 07:58 Normal [facility] CREATININEon 11-11-2022 Creatinine [Mass/Vol] 1.04 mg/dL Normal 0.70-1.30 [facility] Comment on above: Performed By: #### C ASIF #### [facility] [address] [place] [address] Dr. Gianni Deluna EGFR-AF CAMBODIAN >60 Normal >=60 [facility] Comment on above: Performed By: #### C ASIF #### [facility] [address] [place] [address] Dr. Gianni Deluna EGFR-NON AF CAMBODIAN >60 Normal >=60 [facility] Comment on above: Performed By: #### C ASIF #### [facility] [address] [place] [address] CHEST W CONon [...] by: PA CROW Date: 2022-11-11 11:29 Normal [facility] MRI CSPINE WO CONon 08-14-20 22 [...] ANTONI TRACEY Date: 2022-08-14 09:19 Normal [facility] INSULINon 06-04-2022 Insulin 13.5 uIU/mL Normal 2.6-24.9 [facility] Comment on above: Performed By: #### L ACT #### [facility] [address] [place] [address] Dr. Gianni Deluna CBC AUTO DIFFon 06-03-2022 BASO # 0.1 103/ul Normal 0.0-0.1 [facility] Comment on above: Performed By: #### L ACT #### [facility] [address] [place] [address] Dr. Gianni Deluna Basophils/100 WBC (Bld) 1.2 % Normal 0.2-2.0 [facility] Comment on above: Performed By: #### L ACT #### [facility] [address] [place] [address] Dr. Gianni Deluna EO # 0.4 103/ul Normal 0.0-0.7 [facility] Comment on above: Performed By: #### L ACT #### [facility] [address] [place] [address] Dr. Gianni Deluna Eosinophils/100 WBC (Bld) 5.9 % Normal 0.9-7.0 [facility] Comment on above: Performed By: #### L ACT #### [facility] [address] [place] [address] Dr. Gianni Deluna Erythrocyte distribution width (RBC) [Ratio] 13.4 % Normal 11.0-15.0 [facility] Comment on above: Performed By: #### L ACT #### [facility] [address] [place] [address] Dr. Gianni Deluna Hematocrit (Bld) [Volume fraction] 39.6 % Critically low 42.0-54.0 [facility] Comment on above: Performed By: #### L ACT #### [facility] [address] [address] [address] Gianni Deluna Hemoglobin (Bld) [Mass/Vol] 12.8 g/dL Critically low 14.0-18.0 [facility] Comment on above: Performed By: #### L ACT #### [facility] [address] [address] [address] Gianni Deluna IG # 0.04 10e3/ul Critically high 0.00-0.03 [facility] Comment on above: Performed By: #### L ACT #### [facility] [address] [place] [address] Dr. Gianni Deluna IG % 0.7 % Critically high 0.0-0.5 [facility] Comment on above: Performed By: #### L ACT #### [facility] [address] [place] [address] Dr. Gianni Deluna LYMPH # 1.9 103/ul Normal 1.2-3.8 [facility] Comment on above: Performed By: #### L ACT #### [facility] [address] [place] [address] Dr. Gianni Deluna Lymphocytes/100 WBC (Bld) 31.7 % Normal 20.5-60.0 [facility] Comment on above: Performed By: #### L ACT #### [facility] [address] [place] [address] Dr. Gianni Deluna MANUAL DIFF REQ NO Normal [facility] Comment on above: Performed By: #### L ACT #### [facility] [address] [address] [address] Gianni Deluna MCH (RBC) [Entitic mass] 30.2 pg Normal 25.9-34.0 [facility] Comment on above: Performed By: #### L ACT #### [facility] [address] [place] [address] Dr. Gianni Deluna MCHC (RBC) [Mass/Vol] 32.3 g/dL Normal 29.9-35.2 [facility] Comment on above: Performed By: #### L ACT #### [facility] [address] [place] [address] Dr. Gianni Deluna MCV (RBC) [Entitic vol] 93.4 fL Normal 80.0-94.0 [facility] Comment on above: Performed By: #### L ACT #### [facility] [address] [address] [address] Gianni Deluna MONO # 0.7 103/ul Normal 0.3-0.8 [facility] Comment on above: Performed By: #### L ACT #### [facility] [address] [address] [address] Gianni Deluna Monocytes/100 WBC (Bld) 11.9 % Normal 1.7-12.0 [facility] Comment on above: Performed By: #### L ACT #### [facility] [address] [place] [address] Dr. Gianni Deluna NEUT # 2.9 103/ul Normal 1.4-6.5 [facility] Comment on above: Performed By: #### L ACT #### [facility] [address] [place] [address] Dr. Gianni Deluna Neutrophils/100 WBC (Bld) 48.6 % Normal 43.0-75.0 [facility] Comment on above: Performed By: #### L ACT #### [facility] [address] [place] [address] Dr. Gianni Deluna Platelet mean volume (Bld) [Entitic vol] 9.1 fL Critically low 9.5-13.5 [facility] Comment on above: Performed By: #### L ACT #### [facility] [address] [place] [address] Dr. Gianni Deluna PLT 168 103/ul Normal 150-450 [facility] Comment on above: Performed By: #### L ACT #### [facility] [address] [place] [address] Dr. Gianni Deluna RBC 4.24 106/ul Critically low 4.70-6.10 [facility] Comment on above: Performed By: #### L ACT #### [facility] [address] [place] [address] Dr. Gianni Deluna WBC 6.0 103/ul Normal 4.0-11.0 [facility] Comment on above: Performed By: #### L ACT #### [facility] [address] [place] [address] Dr. Gianni Deluna FREE THYROXINE INDEX T7on FTI 1.91 Normal 1.30-4.50 [facility] Comment on above: Performed By: #### L ACT #### [facility] [address] [place] [address] Dr. Gianni Deluna T3U 36.0 % Normal 33.0-40.0 [facility] Comment on above: Performed By: #### L ACT #### [facility] [address] [place] [address] Dr. Gianni Deluna T4 [Mass/Vol] 5.30 ug/dL Normal 4.50-12.10 [facility] Comment on above: Performed By: #### L ACT #### [facility] [address] [place] [address] Dr. Gianni Deluna GLYCOHEMOGLOBIN A1Con 2021 ADA RECOMMENDATION SEE BELOW Normal [facility] Comment on above: Result Comment: ADA RECOMMENDED LIMIT 4.0 - 6.0 ADA THERAPEUTIC TARGET < 7.0 ACTION SUGGESTED > 7.0 Performed By: #### D DIM #### [facility] [address] [place] [address] Dr. Gianni Deluna Glucose [Mass/Vol] 140 mg/dL Normal [facility] Comment on above: Performed By: #### D DIM #### [facility] [address] [place] [address] Dr. Gianni Deluna HbA1c (Bld) [Mass fraction] 6.5 % Critically high 4.5-6.2 [facility] Comment on above: Performed By: #### D DIM #### [facility] [address] [place] [address] Dr. Gianni Deluna LIPID PROFILEon 06-03-2022 CHOL-HDL RATIO NORM SEE BELOW Normal [facility] Comment on above: Result Comment: 3.3 - 4.4 LOW RISK 4.4 - 7.1 AVERAGE RISK 7.1 - 11.0 MODERATE RISK >11.0 HIGH RISK Performed By: #### T SH, T7, URIC, CMP, LIPID #### [facility] [address] [address] [address] Gianni Deluna Cholesterol [Mass/Vol] 104 mg/dL Normal <=200 [facility] Comment on above: Performed By: #### T SH, T7, URIC, CMP, LIPID #### [facility] [address] [address] [address] Gianni Deluna Cholesterol in HDL [Mass/Vol] 49 mg/dL Normal 40-60 [facility] Comment on above: Performed By: #### T SH, T7, URIC, CMP, LIPID #### [facility] [address] [place] [address] Dr. Gianni Deluna Cholesterol in LDL [Mass/Vol] 46.6 mg/dL Normal [facility] Comment on above: Performed By: #### T SH, T7, URIC, CMP, LIPID #### [facility] [address] [place] [address] Dr. Gianni Deluna Cholesterol.total/Ch olesterol in HDL [Mass ratio] 2.1 {ratio} Normal [facility] Comment on above: Performed By: #### T SH, T7, URIC, CMP, LIPID #### [facility] [address] [place] [address] Dr. Gianni Deluna HDL NORMAL > or = 60 mg/dl - LO W CARDIOVASCULAR RISK <40 mg/dl - HIGH CARDIOVASCULAR RISK Normal [facility] Comment on above: Performed By: #### T SH, T7, URIC, CMP, LIPID #### [facility] [address] [place] [address] Dr. Gianni Deluna LDL CALC NORMAL SEE BELOW Normal [facility] Comment on above: Result Comment: <100 mg/dl OPTIMAL 100 - 129 mg/dl NEAR OR ABOVE OPTIMAL 130 - 159 mg/dl BORDERLINE HIGH 160 - 189 mg/dl HIGH >190 mg/dl VERY HIGH Performed By: #### T SH, T7, URIC, CMP, LIPID #### [facility] [address] [place] [address] Dr. Gianni Deluna Triglyceride [Mass/Vol] 42 mg/dL Normal <=150 [facility] Comment on above: Performed By: #### T SH, T7, URIC, CMP, LIPID #### [facility] [address] [address] [address] Gianni Deluna VLDL CALC 8.4 mg/dL Normal [facility] Comment on above: Performed By: #### T SH, T7, URIC, CMP, LIPID #### [facility] [address] [place] [address] Dr. Gianni Deluna PROF 14(COMP METB)on 06-03- 022 Albumin [Mass/Vol] 2.9 g/dL Critically low 3.4-5.0 [facility] Comment on above: Performed By: #### T SH, T7, URIC, CMP, LIPID #### [facility] [address] [place] [address] Dr. Gianni Deluna Albumin/Globulin [Mass ratio] 0.8 {ratio} Normal [facility] Comment on above: Performed By: #### T SH, T7, URIC, CMP, LIPID #### [facility] [address] [place] [address] Dr. Gianni Deluna ALP [Catalytic activity/Vol] 127 U/L Critically high 46-116 [facility] Comment on above: Performed By: #### T SH, T7, URIC, CMP, LIPID #### [facility] [address] [place] [address] Dr. Gianni Deluna ALT [Catalytic activity/Vol] 23 U/L Normal 16-63 [facility] Comment on above: Performed By: #### T SH, T7, URIC, CMP, LIPID #### [facility] [address] [place] [address] Dr. Gianni Deluna Anion gap [Moles/Vol] 8.4 mmol/L Normal [facility] Comment on above: Performed By: #### T SH, T7, URIC, CMP, LIPID #### [facility] [address] [place] [address] Dr. Gianni Deluna AST [Catalytic activity/Vol] 21 U/L Normal 15-37 [facility] Comment on above: Performed By: #### T SH, T7, URIC, CMP, LIPID #### [facility] [address] [place] [address] Dr. Gianni Deluna Bilirubin [Mass/Vol] 0.5 mg/dL Normal 0.2-1.0 [facility] Comment on above: Performed By: #### T SH, T7, URIC, CMP, LIPID #### [facility] [address] [place] [address] Dr. Gianni Deluna Calcium [Mass/Vol] 8.3 mg/dL Critically low 8.5-10.1 [facility] Comment on above: Performed By: #### T SH, T7, URIC, CMP, LIPID #### [facility] [address] [place] [address] Dr. Gianni Deluna Chloride [Moles/Vol] 107 mmol/L Normal 98-107 [facility] Comment on above: Performed By: #### T SH, T7, URIC, CMP, LIPID #### [facility] [address] [place] [address] Dr. Gianni Deluna CO2 [Moles/Vol] 30.6 mmol/L Normal 21.0-32.0 [facility] Comment on above: Performed By: #### T SH, T7, URIC, CMP, LIPID #### [facility] [address] [place] [address] Dr. Gianni Deluna Creatinine [Mass/Vol] 0.93 mg/dL Normal 0.70-1.30 [facility] Comment on above: Performed By: #### T SH, T7, URIC, CMP, LIPID #### [facility] [address] [place] [address] Dr. Gianni Deluna EGFR-AF CAMBODIAN >60 Normal >=60 [facility] Comment on above: Performed By: #### T SH, T7, URIC, CMP, LIPID #### [facility] [address] [place] [address] Dr. Gianni Deluna EGFR-NON AF CAMBODIAN >60 Normal >=60 [facility] Comment on above: Performed By: #### T SH, T7, URIC, CMP, LIPID #### [facility] [address] [place] [address] Dr. Gianni Deluna Globulin (S) [Mass/Vol] 3.5 g/dL Normal [facility] Comment on above: Performed By: #### T SH, T7, URIC, CMP, LIPID #### [facility] [address] [place] [address] Dr. Gianni Deluna Glucose [Mass/Vol] 114 mg/dL Critically high 74-106 [facility] Comment on above: Performed By: #### T SH, T7, URIC, CMP, LIPID #### [facility] [address] [place] [address] Dr. Gianni Deluna Potassium [Moles/Vol] 4.0 mmol/L Normal 3.5-5.1 [facility] Comment on above: Performed By: #### T SH, T7, URIC, CMP, LIPID #### [facility] [address] [place] [address] Dr. Gianni Deluna Protein [Mass/Vol] 6.4 g/dL Normal 6.4-8.2 [facility] Comment on above: Performed By: #### T SH, T7, URIC, CMP, LIPID #### [facility] [address] [place] [address] Dr. Gianni Deluna Sodium [Moles/Vol] 142 mmol/L Normal 136-145 [facility] Comment on above: Performed By: #### T SH, T7, URIC, CMP, LIPID #### [facility] [address] [place] [address] Dr. Gianni Deluna Urea nitrogen [Mass/Vol] 11.0 mg/dL Normal 7.0-18.0 [facility] Comment on above: Performed By: #### T SH, T7, URIC, CMP, LIPID #### [facility] [address] [place] [address] Dr. Gianni Deluna Urea nitrogen/Creatinine [Mass ratio] 11.8 mg/mg Normal [facility] Comment on above: Performed By: #### T SH, T7, URIC, CMP, LIPID #### [facility] [address] [place] [address] Dr. Gianni Deluna TSHon 06-03-2022 TSH 0.814 uIU/mL Normal 0.358-3.740 [facility] Comment on above: Performed By: #### L ACT #### [facility] [address] [place] [address] Dr. Gianni Deluna URIC ACID SERUMon 06-03-2022 Urate [Mass/Vol] 5.2 mg/dL Normal 3.5-7.2 [facility] Comment on above: Performed By: #### T SH, T7, URIC, CMP, LIPID #### [facility] [address] [address] [address] Gianni Deluna CARDIAC ALEX 3-6on 2 CK [Catalytic activity/Vol] 82 U/L Normal 39-308 [facility] Comment on above: Performed By: #### L ACT #### [facility] [address] [place] [address] Dr. Gianni Deluna CK.MB [Mass/Vol] 2.40 ng/mL Normal <=3.60 [facility] Comment on above: Performed By: #### L ACT #### [facility] [address] [place] [address] Dr. Gianni Deluna HSTROP 8.6 pg/mL Normal 4.0-76.1 [facility] Comment on above: Result Comment: CUT- OFF POINTS HAVE BEEN ESTABLISHED BASED ON THE FOURTH UNIVERSAL DEFINITIONS OF MYOCARDIAL INFARCTION. THE UPPER REFERENCE LIMIT (URL) OF TROPONIN, DEFINED THE 99TH PERCENTILE OF cTnI DISTRIBUTION IN A REFERENCE POPULATION, HAS BEEN CONFIRMED THE DECISION THRESHOLD FOR CT DIAGNOSIS. Performed By: #### L ACT #### [facility] [address] [place] [address] ABD/PELV W CONon [...] by: JAIMIE COOPER Date: 2022-04-21 00:38 Normal [facility] LACTATE/LACTIC ACIDon 2021 Lactate [Moles/Vol] 2.2 mmol/L Critically high 0.4-1.9 [facility] Comment on above: Performed By: #### L ACT #### [facility] [address] [place] [address] Dr. Gianni Deluna AMYLASEon 04-20-2022 Amylase [Catalytic activity/Vol] 139 U/L Critically high 25-115 [facility] Comment on above: Performed By: #### L ACT #### [facility] [address] [address] [address] Gianni Deluna CARDIAC ALEX ADMITon 022 CK [Catalytic activity/Vol] 88 U/L Normal 39-308 [facility] Comment on above: Performed By: #### C MADM #### [facility] [address] [address] [address] Gianni Deluna CK.MB [Mass/Vol] 1.82 ng/mL Normal <=3.60 [facility] Comment on above: Performed By: #### C MADM #### [facility] [address] [address] [address] Gianni Deluna HSTROP 7.2 pg/mL Normal 4.0-76.1 [facility] Comment on above: Result Comment: CUT- OFF POINTS HAVE BEEN ESTABLISHED BASED ON THE FOURTH UNIVERSAL DEFINITIONS OF MYOCARDIAL INFARCTION. THE UPPER REFERENCE LIMIT (URL) OF TROPONIN, DEFINED THE 99TH PERCENTILE OF cTnI DISTRIBUTION IN A REFERENCE POPULATION, HAS BEEN CONFIRMED THE DECISION THRESHOLD FOR CT DIAGNOSIS. Performed By: #### C MADM #### [facility] [address] [place] [address] Dr. Gianni Deluna FILIBERTO 93 ng/mL Normal 16-96 [facility] Comment on above: Performed By: #### C MADM #### [facility] [address] [place] [address] Dr. Gianni Deluna CBC AUTO DIFFon 04-20-2022 BASO # 0.0 103/ul Normal 0.0-0.1 [facility] Comment on above: Performed By: #### C BC #### [facility] [address] [place] [address] Dr. Gianni Deluna Basophils/100 WBC (Bld) 0.3 % Normal 0.2-2.0 [facility] Comment on above: Performed By: #### C BC #### [facility] [address] [place] [address] Dr. Gianni Deluna EO # 0.0 103/ul Normal 0.0-0.7 [facility] Comment on above: Performed By: #### C BC #### [facility] [address] [place] [address] Dr. Gianni Deluna Eosinophils/100 WBC (Bld) 0.1 % Critically low 0.9-7.0 [facility] Comment on above: Performed By: #### C BC #### [facility] [address] [place] [address] Dr. Gianni Deluna Erythrocyte distribution width (RBC) [Ratio] 13.5 % Normal 11.0-15.0 [facility] Comment on above: Performed By: #### C BC #### [facility] [address] [place] [address] Dr. Gianni Deluna Hematocrit (Bld) [Volume fraction] 45.8 % Normal 42.0-54.0 [facility] Comment on above: Performed By: #### C BC #### [facility] [address] [address] [address] Gianni Deluna Hemoglobin (Bld) [Mass/Vol] 15.3 g/dL Normal 14.0-18.0 [facility] Comment on above: Performed By: #### C BC #### [facility] [address] [address] [address] Gianni Deluna IG # 0.05 10e3/ul Critically high 0.00-0.03 [facility] Comment on above: Performed By: #### C BC #### [facility] [address] [address] [address] Gianni Deluna IG % 0.5 % Normal 0.0-0.5 [facility] Comment on above: Performed By: #### C BC #### [facility] [address] [place] [address] Dr. Gianni Deluna LYMPH # 0.8 103/ul Critically low 1.2-3.8 [facility] Comment on above: Performed By: #### C BC #### [facility] [address] [place] [address] Dr. Gianni Deluna Lymphocytes/100 WBC (Bld) 7.7 % Critically low 20.5-60.0 [facility] Comment on above: Performed By: #### C BC #### [facility] [address] [place] [address] Dr. Gianni Deluna MANUAL DIFF REQ NO Normal [facility] Comment on above: Performed By: #### C BC #### [facility] [address] [address] [address] Gianni Deluna MCH (RBC) [Entitic mass] 30.4 pg Normal 25.9-34.0 [facility] Comment on above: Performed By: #### C BC #### [facility] [address] [place] [address] Dr. Gianni Deluna MCHC (RBC) [Mass/Vol] 33.4 g/dL Normal 29.9-35.2 [facility] Comment on above: Performed By: #### C BC #### [facility] [id number] Gianni Deluna MCV (RBC) [Entitic vol] 90.9 fL Normal 80.0-94.0 [facility] Comment on above: Performed By: #### C BC #### [facility] [address] [address] [address] Gianni Deluna MONO # 0.4 103/ul Normal 0.3-0.8 [facility] Comment on above: Performed By: #### C BC #### [facility] [address] [address] [address] Gianni Deluna Monocytes/100 WBC (Bld) 3.3 % Normal 1.7-12.0 [facility] Comment on above: Performed By: #### C BC #### [facility] [address] [place] [address] Dr. Gianni Deluna NEUT # 9.7 103/ul Critically high 1.4-6.5 [facility] Comment on above: Performed By: #### C BC #### [facility] [address] [place] [address] Dr. Gianni Deluna Neutrophils/100 WBC (Bld) 88.1 % Critically high 43.0-75.0 [facility] Comment on above: Performed By: #### C BC #### [facility] [address] [place], [place] [id number] Dr. Gianni Deluna Platelet mean volume (Bld) [Entitic vol] 8.9 fL Critically low 9.5-13.5 [facility] Comment on above: Performed By: #### C BC #### [facility] [address] [place], [place] [id number] Dr. Gianni Deluna PLT 198 103/ul Normal 150-450 [facility] Comment on above: Performed By: #### C BC #### [facility] [id number] Gianni Deluna RBC 5.04 106/ul Normal 4.70-6.10 [facility] Comment on above: Performed By: #### C BC #### [facility] [address] [place] [address] Dr. Gianni Deluna WBC 11.0 103/ul Normal 4.0-11.0 [facility] Comment on above: Performed By: #### C BC #### [facility] [address] [place], [place] [address] Dr. Gianni Deluna [facility]on SARS-CoV-2 (COVID-19) RNA NICHOLE+probe Ql (Unsp spec) Not detected Normal NOT DETECTED [facility] Comment on above: Result Comment: When diagnostic [...] for this test is supported by the [employer] Operator of Health and Human Service's declaration that [...] used). Performed By: #### C VDTBH #### [facility] [address] [address] [address] Gianni Deluna D-DIMERon 04-20-2022 D-DIMER 0.37 mg/L FEU Normal <=0.59 [facility] Comment on above: Performed By: #### D DIM #### [facility] [address] [address] [address] Gianni Deluna D-DIMER COMMENTS SEE BELOW Normal [facility] Comment on above: Result Comment: Incr [...] hospitalization. Performed By: #### D DIM #### [facility] [address] [place] [address] Dr. Gianni Deluna LACTATE/LACTIC ACIDon 2021 Lactate [Moles/Vol] 2.3 mmol/L Critically high 0.4-1.9 [facility] Comment on above: Performed By: #### L ACT #### [facility] [address] [place] [address] Dr. Gianni Deluna LIPASEon 04-20-2022 Lipase [Catalytic activity/Vol] 48.0 U/L Critically low 73.0-393.0 [facility] Comment on above: Performed By: #### L ACT #### [facility] [address] [place] [address] Dr. Gianni Deluna PROF 14(COMP METB)on 022 Albumin [Mass/Vol] 3.9 g/dL Normal 3.4-5.0 [facility] Comment on above: Performed By: #### L ACT #### [facility] [address] [place] [address] Dr. Gianni Deluna Albumin/Globulin [Mass ratio] 1.0 {ratio} Normal [facility] Comment on above: Performed By: #### L ACT #### [facility] [address] [place] [address] Dr. Gianni Deluna ALP [Catalytic activity/Vol] 127 U/L Critically high 46-116 [facility] Comment on above: Performed By: #### L ACT #### [facility] [address] [place] [address] Dr. Gianni Deluna ALT [Catalytic activity/Vol] 27 U/L Normal 16-63 [facility] Comment on above: Performed By: #### L ACT #### [facility] [address] [place] [address] Dr. Gianni Deluna Anion gap [Moles/Vol] 15.9 mmol/L Normal [facility] Comment on above: Performed By: #### L ACT #### [facility] [address] [address] [address] Gianni Deluna AST [Catalytic activity/Vol] 27 U/L Normal 15-37 [facility] Comment on above: Performed By: #### L ACT #### [facility] [address] [address] [address] Gianni Deluna Bilirubin [Mass/Vol] 0.9 mg/dL Normal 0.2-1.0 [facility] Comment on above: Performed By: #### L ACT #### [facility] [address] [address] [address] Gianni Deluna Calcium [Mass/Vol] 8.9 mg/dL Normal 8.5-10.1 [facility] Comment on above: Performed By: #### L ACT #### [facility] [address] [address] [address] Gianni Deluna Chloride [Moles/Vol] 103 mmol/L Normal 98-107 [facility] Comment on above: Performed By: #### L ACT #### [facility] [address] [address] [address] Ginani Deluna CO2 [Moles/Vol] 24.2 mmol/L Normal 21.0-32.0 [facility] Comment on above: Performed By: #### L ACT #### [facility] [address] [address] [address] Gianni Deluna Creatinine [Mass/Vol] 1.27 mg/dL Normal 0.70-1.30 [facility] Comment on above: Performed By: #### L ACT #### [facility] [address] [address] [address] Gianni Deluna EGFR-AF CAMBODIAN >60 Normal >=60 [facility] Comment on above: Performed By: #### L ACT #### [facility] [address] [address] [address] Gianni Deluna EGFR-NON AF CAMBODIAN 56 mL/min/1.73m2 Critically low >=60 [facility] Comment on above: Performed By: #### L ACT #### [facility] [address] [address] [address] Gianni Deluna Globulin (S) [Mass/Vol] 3.9 g/dL Normal [facility] Comment on above: Performed By: #### L ACT #### [facility] [address] [address] [address] Gianni Deluna Glucose [Mass/Vol] 145 mg/dL Critically high 74-106 [facility] Comment on above: Performed By: #### L ACT #### [facility] [address] [address] [address] Gianni Deluna Potassium [Moles/Vol] 4.1 mmol/L Normal 3.5-5.1 [facility] Comment on above: Performed By: #### L ACT #### [facility] [address] [address] [address] Gianni Deluna Protein [Mass/Vol] 7.8 g/dL Normal 6.4-8.2 [facility] Comment on above: Performed By: #### L ACT #### [facility] [address] [address] [address] Gianni Deluna Sodium [Moles/Vol] 139 mmol/L Normal 136-145 [facility] Comment on above: Performed By: #### L ACT #### [facility] [address] [address] [address] Gianni Deluna Urea nitrogen [Mass/Vol] 22.0 mg/dL Critically high 7.0-18.0 [facility] Comment on above: Performed By: #### L ACT #### [facility] [address] [address] [address] Gianni Deluna Urea nitrogen/Creatinine [Mass ratio] 17.3 mg/mg Normal [facility] Comment on above: Performed By: #### L ACT #### [facility] [address] [address] [address] Gianni Deluna XR ABD FLAT UP_PA [...] by: JAIMIE COOPER Date: 2022-04-20 21:58 Normal [facility] US RICHELLE DOP LEG LTon 03-18-20 [...] LAWANDA VEE Date: 2022-03-18 13:25 Normal [facility] US RICHELLE DOP LEG LTon 12-08-19 22 [...] by: ANTONI JOLLEY Date: 2021-12-06 22:57 Normal [facility] Vital Signs Date Time Vital Sign Value Performing Clinician Faci lity 09-07-2024 17:32-0500 Diastolic blood pressure 78 mm[Hg] [facility] 09-07-2024 17:32-0500 Systolic blood pressure 180 mm[Hg] [facility] 09-07-2024 17:14-0500 Body height 172.72 cm [facility] 09-07-2024 17:14-0500 Body mass index (BMI) [Ratio] 19 kg/m2 [facility] 09-07-2024 17:14-0500 Body temperature 98.5 [degF] [facility] 09-07-2024 17:14-0500 Body weight 56.69 kg [facility] 09-07-2024 17:14-0500 Heart rate 49 /min [facility] 09-07-2024 17:14-0500 Respiratory rate 18 /min [facility] 09-07-2024 17:14-0500 SaO2% (BldA) [Mass fraction] 99 % [facility] Encounters Encounter Date Encounter Type Care Provider Facility Start: 02-22-2025 ambulatory Elissa Abbott lity:[facility]bo Start: 02-08-2025 ambulatory Elissa Wu Facilit y:[facility] Start: 09-07-2024 End: 09-07-2024 ambulatory [facility] Work Phone: Start: 09-07-2024 End: 09-07-2024 Patient encounter procedure [facility] Work Phone: Start: 06-09-2024 End: 06-09-2024 Waleboo flowsisidro Becker STAFFING RECRUITER-CLINICAL PROGRAM MANAGER Work Phone: [facility] Start: 06-09-2024 End: 06-09-2024 Bamboo flowsheet Ora Becker STAFFING RECRUITER-CLINICAL PROGRAM MANAGER Work Phone: [facility] Start: 06-09-2024 End: 06-09-2024 Office outpatient visit 15 minutes Ora Becker STAFFING RECRUITER-CLINICAL PROGRAM MANAGER Work Phone: [facility] Comment on above: Melanocytic nevus of trunk; Seborrheic keratosis; Lentigines; Actinic keratosis; Neoplasm of unspecified behavior of bone, soft tissue, and skin Start: 06-09-2024 End: 06-09-2024 ambulatory ORA BECKER Not Available Start: 10-26-2023 End: 10-27-2023 [facility] Start: 09-21-2023 End: 09-22-2023 ambulatory Stefany Ballard MD Facility: [facility] Start: 08-31-2023 End: 09-01-2023 ambulatory [facility] Start: 08-05-2023 End: 08-05-2023 ambulatory DAXA RAMÍREZ Not Available Start: 07-17-2023 ambulatory Evens Archer MD Facility:[facility] Start: 07-08-2023 End: 07-08-[address] [facility] Start: 06-29-2023 End: 06-29-2023 ambulatory [facility] Start: 06-29-2023 End: 06-29-2023 Encounter for other preprocedural examination [facility] Start: 06-17-2023 Encounter for other preprocedural examination [facility] Start: 05-20-2023 End: 05-20-2023 ambulatory [facility] Start: 11-13-2022 End: 11-14-[address] EVENS [...] 06-09-2024 SKIN / NAIL BIOPSY Shira Becker STAFFING RECRUITER-CLINICAL PROGRAM MANAGER Work Phone: Start: 06-09-2024 CRYOTHERAPY SKIN LESION Ora Becker STAFFING RECRUITER-CLINICAL PROGRAM MANAGER Work Phone: Start: 06-03-[address] FRANCO ARCHER . Comment on above: Performed By: #### P [facility] #### [facility] [address] [place] [address] Dr. Gianni Deluna Plan of Treatment Date Care Activity Detail Author Start: 06-12-2025 End: 06-12-2025 Patient encounter procedure 06/12/2025 9:55 AM EDT Office Visit [facility] [address] [place] [address] Ora Becker, STAFFING RECRUITER-CLINICAL PROGRAM MANAGER [address] [place] [address] [facility] Start: 06-09-2024 End: 06-09-2024 Patient encounter procedure 06/09/2024 10:55 AM EDT Office Visit [facility] [address] [place] [address] Ora Becker, STAFFING RECRUITER-CLINICAL PROGRAM MANAGER [address] [place] [address] Arrived [facility] Comment on [...] 2021 Medicare (Managed Care) [employer] ADVANTAGE [id number] 1959 Self-pay [id number] 1959 Unknown [id number] 1954 Unknown [id number] 2.16.840.1.435963.3.579. 2.59 1954 Unknown [id number] 2.16.840.1.511430.3.579. 2.59 1954 Unknown [id number] 2.16.840.1.338077.3.579. 2.59 1954 Unknown [id number] 2.16.840.1.522846.3.579. 2.59 1954 Unknown [id number] 2.16.840.1.796669.3.579. 2.59 1954 Unknown [id number] 2.16.840.1.508870.3.579. 2.59 1954 Unknown [id number] 2.16.840.1.617174.3.579. 2.593 1954 Unknown [id number] 2.16.840.1.500003.3.579. 2.593 1954 Unknown [id number] 2.16.840.1.404188.3.579. 2.196 1954 Unknown [id number] 2.16.840.1.036098.3.579. 2.196 1954 Unknown [id number] 2.16.840.1.388589.3.579. 2.196 1954 Unknown [id number] 2.16.840.1.389144.3.579. 2.1259 1954 Unknown [id number] 2.16.840.1.834006.3.579. 2.1259 1954 Unknown [id number] 2.16.840.1.773876.3.579. 2.727 Social History Date Type Detail Facility Start: 08-05-2023 End: 09-07-2024 Tobacco smoking status PAIS Never smoked tobacco [facility] Start: 08-05-2023 Tobacco use and exposure Smokeless tobacco non-user [facility] Start: 08-05-2023 End: 06-09-2024 History of Social function [facility] Start: 08-05-2023 End: 06-09-2024 Tobacco use panel [facility] Start: 1955 Sex assigned at Not on file [facility] Start: 06-09-2024 Alcoholic beverage intake Lifetime non-drinker (finding) [facility] Start: 09-07-2024 Sex Male (finding) [facility] Start: 1955 Sex Assigned At Male F [facility] Medical Equipment Procedure Code Equipment Code Equipment Origin al Text Equipment Identifier Dates Blood Sugar Diagnostic (Onetouch Ultra Test) strip Start: 09-07-2024 History of Present illness Narrative 06-09-2024 Ora Becker, STAFFING RECRUITER-CLINICAL PROGRAM MANAGER - 06/09/2024 10:55 AM EDT Note Date [...] limited to risks of scarring, darker or political analyst pigmentary changes, recurrence, incomplete removal and infection. [...] pending biopsy result documented in this encounter [facility] Progress note 07-08-2023 Note Date & Type Note Facility 07-08-2023 Note Cardiovascular Medic [facility] SUBJECTIVE Chief Complaint Patient presents with [...] Final Atrial Rate 06/29/2023 47 BPM Final WI Interval 06/29/2023 154 ms Final QRS DURATION 06/29/2023 82 ms Final QT Interval 06/29/2023 482 ms Final QTC CALCULATION(BAZETT) 06/29/2023 426 ms Final P Bolt 06/29/2023 16 degrees Final R-Bolt 06/29/2023 55 degrees Final T Wave Bolt 06/29/2023 41 degrees Final No results found for: EXTCMP, BMPR1A, CBCDIF, BNP, BNP, LASAP, RED Testing/Procedures: No echocardiogram results found for the past 14 days No echocardiogram results found for the past 12 months Encounter Date: 06/29/23 ECG 12 lead Result Value Ventricular Rate 47 Atrial Rate 47 WI Interval 154 QR (more content not included)... [facility] Progress note 07-08-2023 Note Date & Type [...] All other systems reviewed and are negative. [facility] Progress note 06-29-2023 Note Date & Type [...] inhibitor Follow-up with Dr. Murillo in the [place] office in the next 2 to 4 weeks PROCEDURES: Ultrasound-guided access to the right common femoral artery, limited femoral angiography, ultrasound-guided access to the right common femoral vein, right heart catheterization, bilateral selective coronary angiography, placement of a 6 Georgian Mynx dough braker closure device METHODS: After risks, benefits, and [...] micropuncture kit was upsized to a 6 Georgian 11 cm sheath. Angiography via the sheath [...] procedure. All catheters were removed. A 5 Georgian Mynx closure device was deployed per protocol [...] device. INDICATIONS: Preoperative evaluation, coronary artery disease. [facility] Progress note 05-20-2023 Note Date & Type Note Facility 05-20-2023 Note [facility] Card[facility] Clinic Note Chief Complaint: New patient here to establish care. Ref from Dr. Archer for surgery clearance. He has hx of CAD and previously followed with [facility] back in 2014. He has [...] percutaneous revascularization. He was evaluated at [facility] [...] and a reasonable target. Was seen at [facility]; single-vessel coronary artery disease with a [...] LAD. This wo (more content not included)... [facility] Evaluation note Note Date & Type Note Facility Evaluation note Diagnosis Melanocytic nevus of trunk Benign neoplasm of skin of trunk, except scrotum Seborrheic keratosis Lentigines Actinic keratosis Neoplasm of unspecified behavior of bone, soft tissue, and skin documented in this encounter [facility] Evaluation note Note Date & Type Note Facility Evaluation note No assessment information availa [facility] Work Phone: Summary Purpose Family History No [...] content) DATE CREATED AUTHOR 11/21/2022 [facility] Slater [facility] DATE CREATED AUTHOR AUTHOR'S ORGANIZ ATION 07/10/2023 [facility] DATE CREATED AUTHOR AUTHOR'S ORGANIZ ATION 11/03/2023 [facility] DATE CREATED AUTHOR AUTHOR'S ORGANIZ ATION 06/11/2024 [facility] DATE CREATED AUTHOR AUTHOR'S ORGANIZ ATION 02/23/2025 [facility] Care Teams (unrecognized sec tion and [...] BE BASED ON THE PRIMARY CLINICAL RECORDS. [employer] provides no warranty or guarantee of the accuracy or completeness of information in this document.
--- NOTE | 2025-05-22 12:58 | PC.NURSE ---
1210 - pt [id number] would like to speak with pt advocate. very friendly. informed that pt has a bed finally and will be going up soon, agreeable. CHRIS Ma director, in to speak with patient,
--- NOTE | 2025-05-22 13:07 | PM.HP ---
HPI H&P: HPI History of Present Illness Chief complaint: ABDOMINAL PAIN, ACUTE DIVERTICULITIS, COLITIS Narrative: Mr. Denton is a 70-year-old gentleman who came in with abdominal pain. Patient had diarrhea yesterday. This morning the patient had bloody diarrhea. Patient had previous diverticulitis before. Never had colonoscopy. Patient had dry heaves and nausea but no vomiting. No hematemesis. Patient takes aspirin. No fever or chills. Opioid HPI Opioid Management Most Recent Pain and Opioid Data: Last Pain Scale 2 Today, 13:03 Last Pain Assessment Today, 13:03 Last ORT Total Score 3 Today, 12:47 Last ORT Risk Category Low Risk Today, 12:47 Review of Systems ROS Status of ROS 10 or more systems reviewed and unremarkable except as noted in history and below [facility] Medical History (Updated 05/22/25 @ 12:41 by Felipa Anderson RN) Heart disease ?I51.9 - Heart disease, unspecified (ICD-10) Diverticulitis large intestine ?K57.32 - Diverticulitis of large intestine without perforation or abscess without bleeding (ICD-10) Dehydration ?E86.0 - Dehydration (ICD-10) Leukocytosis ?D72.829 - Elevated white blood cell count, unspecified (ICD-10) Colitis ?K52.9 - Noninfective gastroenteritis and colitis, unspecified (ICD-10) Hypothyroid ?E03.9 - Hypothyroidism, unspecified (ICD-10) Thrombosis ?I82.90 - Acute embolism and thrombosis of unspecified vein (ICD-10) History of angina ?Z86.79 - Personal history of other diseases of the circulatory system (ICD-10) Hypertension ?I10 - Essential (primary) hypertension (ICD-10) Surgical History History of fusion of cervical spine ?Z98.1 - Arthrodesis status (ICD-10) History of appendectomy ?Z90.49 - Acquired absence of other specified parts of digestive tract (ICD-10) Hx of tonsillectomy ?Z90.89 - Acquired absence of other organs (ICD-10) Family History (Updated 05/22/25 @ 12:42 by Felipa Anderson RN) Father Family history of CHF (congestive heart failure) Family history of cancer Mother Family history of cancer Family history of stroke Grandfather Family history of myocardial infarction Social History (Updated 05/22/25 @ 12:42 by Felipa Anderson RN) Within the past year, how often did you have a drink containing alcohol: never Score interpretation: A score less than 4 is consistent with normal alcohol consumption. Smoking status: Never smoker Non-prescribed substance use: denies use Highest level of school completed/degree received: Master's degree Little interest or pleasure in doing things: not at all Feeling down, depressed, or hopeless: not at all Meds Home Medications and Allergies Home Medications ?Medication ?Instructions ?Recorded ?Confirmed ?Type aspirin 325 mg tablet 325 mg PO DAILY 08/06/23 05/22/25 History atorvastatin 40 mg tablet 40 mg PO BEDTIME 08/06/23 05/22/25 History carvedilol 25 mg tablet 3.125 mg PO Q12H 08/06/23 05/22/25 History lansoprazole 15 mg delayed 15 mg PO Q12H 08/06/23 05/22/25 History release,disintegrating tablet levothyroxine 50 mcg tablet 50 mcg PO QDAY 08/06/23 05/22/25 History (Synthroid) nitroglycerin 0.4 mg sublingual 0.4 mg sublingual Q5M PRN chest 08/06/23 05/22/25 History tablet pain ranolazine 500 mg tablet,extended 500 mg PO Q12H 08/06/23 05/22/25 History release,12 hr tizanidine 4 mg tablet 4 mg PO BEDTIME 08/06/23 05/22/25 History zolpidem 10 mg tablet 10 mg PO QDAY insomnia 08/06/23 05/22/25 History celecoxib 100 mg capsule 100 mg PO Q12H 08/31/23 05/22/25 History furosemide 20 mg tablet 20 mg PO Q12H PRN edema 05/22/25 05/22/25 History Allergies Allergy/AdvReac Type Severity Reaction Status Date / Time Penicillins Allergy Difficulty Verified 05/21/25 21:54 Breathing Exam Narrative Exam Narrative: [pt is awake and alert. oriented to place, time and person HEENT: [place] conjunctiva and NL buccal mucosa Neck: Supple, no tenderness Endocrine: No Thyromegaly. Vascular: No JVD or carotid bruit. Lymphatic: No cervical lymphadenopathy. Chest: CTA no DTP. Heart RRR, no extra sound or murmur. Abd: Soft, mild tenderness in the periumbilical, left mid and lower abdomen, no rebound and no rigidity. Increase abd girth therefore clinically I could not exclude the possibility of intra abd mass or organomegaly. LE: No cyanosis or clubbing, no varices or edema. Neuro: A A O. Nl speech, comprehension and attention. Nl and symetrical motor and tone examination through out. []] Constitutional Vital Signs, click to edit/add: Last Vital Signs Temp 97.0 F L 05/21/25 22:29 Pulse 60 05/22/25 00:01 Resp 16 05/22/25 00:01 BP 151/74 H 05/22/25 12:16 Pulse Ox 100 05/22/25 12:16 O2 Del Method Room Air 05/21/25 22:29 Results Labs Labs: Short CBC 05/21/25 05/22/25 Range/Units 22:44 07:33 WBC 15.0 H 11.0 (4.0-11.0) 10^3/uL Hgb 15.1 13.8 L (14.0-18.0) g/dL Hct 43.7 41.6 L (42.0-54.0) % Plt Count 164 143 L (150-450) 10^3/uL BMP 05/21/25 05/22/25 22:44 07:33 Sodium 140 142 Potassium 5.4 H 4.2 Chloride 104 108 H Carbon Dioxide 21.1 25.4 BUN 25.0 H 22.0 H Creatinine 1.58 H 1.15 Glucose 177 H 113 H Calcium 9.6 8.4 L Liver Function 05/21/25 05/22/25 Range/Units 22:44 07:33 Total Bilirubin 0.8 0.6 (0.2-1.0) mg/dL Direct Bilirubin 0.2 (0.0-0.2) mg/dL AST 23 19 (15-37) U/L ALT 27 19 (16-63) U/L Alkaline Phosphatase 197 H 132 H (46-116) U/L Albumin 3.9 3.1 L (3.4-5.0) g/dL Urine 05/22/25 Range/Units 00:24 Urine Color Dk. yellow (YELLOW) Urine Clarity Clear (CLEAR) Urine pH 5.5 (5.0-9.0) Ur Specific [place] 1.020 (1.005-1.025) Urine Protein Negative (NEG/TRACE) mg/dL Urine Glucose (UA) Negative (NEGATIVE) mg/dL Assessment and Plan Assessment and Plan (1) Acute diverticulitis: (2) Colitis: Plan Acute colitis/diverticulitis Sepsis present on admission History of C. difficile colitis Bloody diarrhea which are likely caused by colitis. CAT scan does not show any ischemic bowel. White count is down. Lactic acid is down. Continue intravenous Cipro and Flagyl. Requested stool culture and C. difficile analysis. Added oral vancomycin. Monitor his electrolytes and kidney function. Continue IV fluid infusion. Likely patient will require colonoscopy in 6 to 8 weeks to rule out luminal pathology. Check H&H every 6 hours. As needed transfusion. Potential transfer to [facility] if he continues to have bloody diarrhea. [place], likely secondary to sepsis and volume loss Resolving, continue IV fluid infusion CAD, no active chest pain Hold aspirin at this time due to bloody diarrhea. Hypothyroidism Continue Synthroid DVT prophylaxis Hold Lovenox due to bloody diarrhea, compression stocking Chronic, subacute medical conditions not listed above, abnormal labs and imaging. These would need to be addressed. Could be addressed later on or in the outpatient setting by PCP collaboration with other needed outpatient providers when time and condition are appropriate.
[2025-05-22 13:39] LABS: Hematocrit 43.6 % (42.0-54.0); Hemoglobin 14.2 g/dL (14.0-18.0)
[2025-05-22] MEDS: LEVOFLOXACIN IN DEXTROSE 5 % 500 MG/100 ML PREMIX 100 MG IV (13:40)
[2025-05-22] MEDS: VANCOMYCIN HCL 7,500 MG/150 ML BOTTLE 250 MG PO ×3 (13:40→21:05)
[2025-05-22] MEDS: CARVEDILOL 6.25 MG TABLET PO ×2 (13:41→21:04)
--- NOTE | 2025-05-22 14:50 | SWNOTE1 ---
Important Message from Medicare reviewed and discussed with patient. Pt. verbalized understanding and signed the form. Original given to patient and copy placed in patient?s chart.
--- NOTE | 2025-05-22 14:53 | SWNOTE1 ---
SUSI met with pt, pt's brother in law, and son in room. They all voiced they do have some concerns. Pt came in last evening around 8/9pm. They voiced he has bloody diarrhea . Initially they were told pt was going to be transferred to [facility]. Pt has had not good experiences at [facility] and they did not want him to go there and they notified the ED of this. Pt and family were told that if pt needed surgery they were not able to do this here, that was the reason for transfer. It was then determined pt was staying here at this hospital. Pt and family felt like pt was passing a lot of blood in his bowel movements and the staff did not have any concerns about the amount he was passing. They were told down in the ED last night around 1:00am that they could not take him to the floor due to staffing issues and it would be around 8:00am this morning that he would go to the med/surge floor. Pt's brother in law stated it 8,9,10,11am all passed and he did not get to the floor until around 2:00 today. Pt's brother in law voiced that while he was down in the ED, several hours passed and nobody would check on patient. Pt and family voiced they feel uneasy about pt staying here at the hospital and they would like SW to initiate a transfer. They would like him to be transferred to [facility] or [facility]. A transfer can take time and they want it to be started to be safe and be proactive. They have all voiced the communication has not been very good and concerns for pt staying here. Dr. Colon was in to speak with family. They also had concerns with what the physician spoke with them about in regards to pt's care. Pt's brother in law also called over to Dr. Archer's office as well to see if he could offer a second opinion, but Dr. Archer does not have privileges here. At this point pt and family are voicing they are uneasy with pt staying here due to no surgical intervention possible and would like a transfer initiated. SUSI did address the concerns with Shelby, director of Med/Surge unit.
[2025-05-22 20:53] LABS: Hematocrit 40.1 % (42.0-54.0); Hemoglobin 13.1 g/dL (14.0-18.0)
[2025-05-22] MEDS: ATORVASTATIN CALCIUM 40 MG TABLET PO (21:03)
[2025-05-22] MEDS: TIZANIDINE HCL 4 MG TABLET PO (21:04)
[2025-05-22] MEDS: RANOLAZINE 500 MG TAB.ER.12H PO (21:04)
[2025-05-22] MEDS: ZOLPIDEM TARTRATE 10 MG TABLET PO (22:52)
--- NOTE | 2025-05-22 23:44 | PC.NURSE ---
2340: Aide was in doing vitals, could not wake pt. Sternal rubbed, no reaction. Sr. Manager and 2 nurses entered room. Pts bp 83/41. Clear lung sounds. Pt did wake up very groggy, bp went up to 94/51. Pt states he is just sleepy. Note made to avoid Ambien.
[2025-05-23] VITALS (7 sets, daily range): BP systolic 92–184; BP diastolic 52–76; PULSE 54–69; TEMP 36.4–37.2; O2SAT 93–98
[2025-05-23] MEDS: METRONIDAZOLE/SODIUM CHLORIDE 500 MG/100 ML PREMIX 100 MG IV ×3 (00:53→18:10)
[2025-05-23] MEDS: VANCOMYCIN HCL 7,500 MG/150 ML BOTTLE 250 MG PO (05:19)
[2025-05-23] MEDS: LEVOTHYROXINE SODIUM 25 MCG TABLET 50 MCG PO (05:33)
[2025-05-23 05:36] LABS: Hematocrit 36.1 % (42.0-54.0); Hemoglobin 11.6 g/dL (14.0-18.0); Immature Granulocytes Abs Auto 0.01 10^3/uL (0.00-0.03); Immature Granulocytes Pct Auto 0.1 % (0.0-0.5); Lymphocytes Absolute Auto 1.9 10^3/uL (1.2-3.8); Mean Corpuscular HGB Conc 32.1 g/dL (29.9-35.2); Mean Corpuscular Hemoglobin 30.6 pg (25.9-34.0); Mean Corpuscular Volume 95.3 fL (80.0-94.0); Platelet Count 103 10^3/uL (150-450); Red Blood Count 3.79 10^6/uL (4.70-6.10); White Blood Count 7.1 10^3/uL (4.0-11.0)
[2025-05-23 06:00] LABS: Alanine Aminotransferase 11 U/L (16-63); Albumin Globulin Ratio 0.9; Albumin Level 2.3 g/dL (3.4-5.0); Alkaline Phosphatase 79 U/L (46-116); Anion Gap 10.1; Aspartate Amino Transferase 15 U/L (15-37); Blood Urea Nitrogen 15.0 mg/dL (7.0-18.0); Calcium 8.1 mg/dL (8.5-10.1); Carbon Dioxide 24.8 mmol/L (21.0-32.0); Chloride 112 mmol/L (98-107); Estimated GFR (African America >60 (>=60 mL/min/1.73m^2); Estimated GFR (Non-African Ame >60 (>=60 mL/min/1.73m^2); Globulin 2.7 g/dL; Glucose 96 mg/dL (74-106); Potassium 3.9 mmol/L (3.5-5.1); Sodium 143 mmol/L (136-145); Total Protein 5.0 g/dL (6.4-8.2)
[2025-05-23] MEDS: CARVEDILOL 6.25 MG TABLET PO ×2 (09:00→20:28)
[2025-05-23] MEDS: RANOLAZINE 500 MG TAB.ER.12H PO ×2 (09:01→20:28)
[2025-05-23] MEDS: PANTOPRAZOLE SODIUM 40 MG TABLET.DR PO (09:01)
[2025-05-23] MEDS: 0.9 % SODIUM CHLORIDE 250 ML 10 ML IV (09:13)
--- NOTE | 2025-05-23 10:16 | CM.NOTE ---
Rounds made with Dr. Colon. Pt will require a few more days of IV antibiotics. He would like patient to have Colonoscopy in 2-3 months.
--- NOTE | 2025-05-23 11:46 | CM.NOTE ---
CM discussed with pt about f/u colonoscopy and preference of General surgeon. Pt would like to speak with Dr. Archer at f/u appointment to decide on General surgeon and schedule appointment. Benoit txt sent to Dr. Archer and he will f/u with pt and schedule appt.
[2025-05-23] MEDS: LEVOFLOXACIN IN DEXTROSE 5 % 500 MG/100 ML PREMIX 100 MG IV (12:07)
--- NOTE | 2025-05-23 12:23 | PM.PN ---
Progress Note: Subjective Subjective Interval history: Mr. Denton is feeling better today. He continued to have a bloody bowel movement yesterday but nothing after midnight. Diminished out of abdominal cramps and discomfort. Nausea but no vomiting. No dry heaves. Exam Narrative Exam Narrative: [pt is awake and alert. oriented to place, time and person HEENT: [place] conjunctiva and NL buccal mucosa Neck: Supple, no tenderness Endocrine: No Thyromegaly. Vascular: No JVD or carotid bruit. Lymphatic: No cervical lymphadenopathy. Chest: CTA no DTP. Heart RRR, no extra sound or murmur. Abd: Soft, mild tenderness in the periumbilical, left mid and lower abdomen, no rebound and no rigidity. Increase abd girth therefore clinically I could not exclude the possibility of intra abd mass or organomegaly. LE: No cyanosis or clubbing, no varices or edema. Neuro: A A O. Nl speech, comprehension and attention. Nl and symetrical motor and tone examination through out. []] Constitutional Vital Signs, click to edit/add: Last Vital Signs Temp 97.9 F 05/23/25 08:00 Pulse 59 L 05/23/25 12:14 Resp 16 05/23/25 12:14 BP 152/66 H 05/23/25 12:14 Pulse Ox 94 L 05/23/25 12:14 O2 Del Method Room Air 05/23/25 12:14 Progress Note: Objective Labs Labs: Short CBC 05/22/25 05/22/25 05/23/25 Range/Units 13:31 20:45 05:27 WBC 7.1 (4.0-11.0) 10^3/uL Hgb 14.2 13.1 L 11.6 L (14.0-18.0) g/dL Hct 43.6 40.1 L 36.1 L (42.0-54.0) % Plt Count 103 L (150-450) 10^3/uL BMP 05/23/25 05:27 Sodium 143 Potassium 3.9 Chloride 112 H Carbon Dioxide 24.8 BUN 15.0 Creatinine 1.09 Glucose 96 Calcium 8.1 L Liver Function 05/23/25 Range/Units 05:27 Total Bilirubin 0.8 (0.2-1.0) mg/dL AST 15 (15-37) U/L ALT 11 L (16-63) U/L Alkaline Phosphatase 79 (46-116) U/L Albumin 2.3 L (3.4-5.0) g/dL Progress Note: A&P Assessment and Plan (1) Acute diverticulitis: (2) Colitis: Plan Acute colitis/diverticulitis Sepsis present on admission History of C. difficile colitis Bloody diarrhea which are likely caused by colitis. CAT scan does not show any ischemic bowel. White count is down. Lactic acid is down. Continue intravenous Levaquin and Flagyl. I also started patient on vancomycin orally due to history of C. difficile Requested stool culture and C. difficile analysis. This came back negative. Oral vancomycin will be discontinued Monitor his electrolytes and kidney function. Discontinue IV fluid Likely patient will require colonoscopy in 6 to 8 weeks to rule out luminal pathology. H&H at 6 PM Acute blood loss anemia secondary to above Blood pressure is on the high side. Hemoglobin is 11. No justification for blood transfusion at this time. [place], likely secondary to sepsis and volume loss Resolving, discontinue IV fluid infusion. CAD, no active chest pain Hold aspirin at this time due to bloody diarrhea. Hypothyroidism Continue Synthroid DVT prophylaxis Hold Lovenox due to bloody diarrhea, compression stocking Chronic, subacute medical conditions not listed above, abnormal labs and imaging. These would need to be addressed. Could be addressed later on or in the outpatient setting by PCP collaboration with other needed outpatient providers when time and condition are appropriate.
[2025-05-23] MEDS: DEXAMETHASONE SOD PHOS 10 MG/ML VIAL IV (13:31)
[2025-05-23] MEDS: DICYCLOMINE HCL 10 MG CAPSULE 20 MG PO (13:31)
[2025-05-23 18:02] LABS: Hematocrit 40.6 % (42.0-54.0); Hemoglobin 13.1 g/dL (14.0-18.0)
[2025-05-23] MEDS: DICYCLOMINE HCL 10 MG CAPSULE PO (18:14)
[2025-05-23] MEDS: OXYCODONE HCL 5 MG TABLET PO (20:28)
[2025-05-23] MEDS: HYDRALAZINE HCL 20 MG/ML VIAL 5 MG IVP (20:46)
[2025-05-23] MEDS: AMLODIPINE BESYLATE 5 MG TABLET PO (20:47)
[2025-05-23] MEDS: TIZANIDINE HCL 4 MG TABLET PO (21:43)
[2025-05-23] MEDS: ATORVASTATIN CALCIUM 40 MG TABLET PO (21:43)
[2025-05-24] MEDS: METRONIDAZOLE/SODIUM CHLORIDE 500 MG/100 ML PREMIX 100 MG IV ×3 (00:51→16:47)
[2025-05-24 00:57] VITALS: BP 102/59
[2025-05-24 04:00] VITALS: BP 135/78; PULSE 60; TEMP 36.5; O2SAT 95
[2025-05-24] MEDS: LEVOTHYROXINE SODIUM 25 MCG TABLET 50 MCG PO (05:33)
[2025-05-24 05:52] LABS: Hematocrit 37.3 % (42.0-54.0); Hemoglobin 12.6 g/dL (14.0-18.0); Mean Corpuscular HGB Conc 33.8 g/dL (29.9-35.2); Mean Corpuscular Hemoglobin 32.0 pg (25.9-34.0); Mean Corpuscular Volume 94.7 fL (80.0-94.0); Platelet Count 121 10^3/uL (150-450); Red Blood Count 3.94 10^6/uL (4.70-6.10); White Blood Count 10.2 10^3/uL (4.0-11.0)
[2025-05-24 07:08] VITALS: BP 125/65; PULSE 61; TEMP 36.4; O2SAT 94
--- NOTE | 2025-05-24 09:03 | PM.PN ---
Progress Note: Subjective Subjective Interval history: Mr. Denton is feeling better today. Significant improvement of his pain. Resolution of his bloody diarrhea. Diminished out of abdominal cramps and discomfort. Nausea but no vomiting. No dry heaves. Exam Narrative Exam Narrative: [pt is awake and alert. oriented to place, time and person HEENT: [place] conjunctiva and NL buccal mucosa Neck: Supple, no tenderness Endocrine: No Thyromegaly. Vascular: No JVD or carotid bruit. Lymphatic: No cervical lymphadenopathy. Chest: CTA no DTP. Heart RRR, no extra sound or murmur. Abd: Soft, mild tenderness in the periumbilical, left mid and lower abdomen, no guarding, rebound or rigidity. No acute surgical abdomen. LE: No cyanosis or clubbing, no varices or edema. Neuro: A A O. Nl speech, comprehension and attention. Nl and symetrical motor and tone examination through out. []] Constitutional Vital Signs, click to edit/add: Last Vital Signs Temp 97.6 F 05/24/25 07:08 Pulse 61 05/24/25 07:08 Resp 20 05/24/25 07:08 BP 125/65 05/24/25 07:08 Pulse Ox 94 L 05/24/25 07:08 O2 Del Method Room Air 05/24/25 07:08 Progress Note: Objective Labs Labs: Short CBC 05/23/25 05/24/25 Range/Units 17:50 05:05 WBC 10.2 (4.0-11.0) 10^3/uL Hgb 13.1 L 12.6 L (14.0-18.0) g/dL Hct 40.6 L 37.3 L (42.0-54.0) % Plt Count 121 L (150-450) 10^3/uL Progress Note: A&P Assessment and Plan (1) Acute diverticulitis: (2) Colitis: Plan Acute colitis/diverticulitis Sepsis present on admission, resolved. White count is down. History of C. difficile colitis. Repeat C. difficile is negative Bloody diarrhea which are likely caused by colitis. Bloody diarrhea had resolved. Hemoglobin is stable Continue IV antibiotic. Recommend colonoscopy in 6 to 8 weeks to exclude luminal pathology. Acute blood loss anemia secondary to above Blood pressure is on the high side. Hemoglobin is 11. No justification for blood transfusion at this time. Hemoglobin continues to be stable. Blood pressure continues to be stable. [place], likely secondary to sepsis and volume loss Resolving, discontinued IV fluid infusion. CAD, no active chest pain Hold aspirin at this time due to bloody diarrhea. Hypothyroidism Continue Synthroid DVT prophylaxis Hold Lovenox due to bloody diarrhea, compression stocking. Consideration to resume Lovenox today or tomorrow given the resolution of bloody diarrhea. Chronic, subacute medical conditions not listed above, abnormal labs and imaging. These would need to be addressed. Could be addressed later on or in the outpatient setting by PCP collaboration with other needed outpatient providers when time and condition are appropriate.
--- NOTE | 2025-05-24 09:39 | CM.NOTE ---
Rounds made with . Pt continues to have some abdominal cramping but did not pass any blood in his stool throughout the night. Will continue IV antibiotics for another day or two.
[2025-05-24] MEDS: 0.9 % SODIUM CHLORIDE 250 ML 10 ML IV (10:00)
[2025-05-24] MEDS: PANTOPRAZOLE SODIUM 40 MG TABLET.DR PO (10:01)
[2025-05-24] MEDS: RANOLAZINE 500 MG TAB.ER.12H PO ×2 (10:01→21:59)
[2025-05-24] MEDS: CARVEDILOL 6.25 MG TABLET PO ×2 (10:01→21:59)
[2025-05-24] MEDS: AMLODIPINE BESYLATE 5 MG TABLET 2.5 MG PO (10:02)
[2025-05-24] MEDS: LEVOFLOXACIN IN DEXTROSE 5 % 750 MG/150 ML PREMIX 100 MG IV (11:02)
[2025-05-24 15:02] VITALS: BP 129/62; PULSE 64; TEMP 36.6; O2SAT 96
--- NOTE | 2025-05-24 15:18 | SWNOTE1 ---
SW stopped in and spoke with pt. Pt had other family members in room as well. Pt voiced he was feeling well. Stated he was cramping throughout last night, but that seemed to subdue around 10:00am and he is feeling well. No concerns at this time. SW to follow as needed.
[2025-05-24 19:55] VITALS: BP 148/74; PULSE 64; TEMP 36.6; O2SAT 95
[2025-05-24] MEDS: ZOLPIDEM TARTRATE 10 MG TABLET PO (21:59)
[2025-05-24] MEDS: ENOXAPARIN SODIUM 40 MG/0.4 ML SYRINGE SUBQ (21:59)
[2025-05-24] MEDS: ATORVASTATIN CALCIUM 40 MG TABLET PO (21:59)
[2025-05-25] VITALS: BP 138/67; PULSE 83; TEMP 36.7; O2SAT 96
[2025-05-25] MEDS: METRONIDAZOLE/SODIUM CHLORIDE 500 MG/100 ML PREMIX 100 MG IV ×2 (01:04→09:52)
[2025-05-25 03:35] VITALS: BP 132/69; PULSE 64; TEMP 36.4; O2SAT 96
[2025-05-25] MEDS: LEVOTHYROXINE SODIUM 25 MCG TABLET 50 MCG PO (05:33)
[2025-05-25 08:00] VITALS: BP 136/68; PULSE 64; TEMP 36.6; O2SAT 94
--- NOTE | 2025-05-25 08:05 | CM.NOTE ---
Rounds made with Dr. Colon, pt will discharge to home. No discharge needs identified. Pt will discuss f/u with general surgeon for colonoscopy with Dr. Archer at next appointment.
[2025-05-25 08:36] VITALS: PULSE 64
--- NOTE | 2025-05-25 09:30 | P.DS_ITS ---
DS: Providers Provider Date of admission: 05/22/25 12:22 Primary care physician: Eriberto Archer MD DS: Diagnosis Discharge Diagnosis (1) Acute diverticulitis: (2) Colitis: Plan As listed above, below and others that are not listed DS: Summary Hospital Course Hospital Course: Mr. Denton is a 70-year-old gentleman who came in with abdominal pain and bloody diarrhea. He was found to have the following: Acute colitis/diverticulitis clinically and radiologically. Sepsis present on admission, resolved. White count is down. Lactic acid is down. History of C. difficile colitis. Repeat C. difficile is negative Bloody diarrhea which are likely caused by colitis. Bloody diarrhea had resolved. Diarrhea had resolved. Hemoglobin is stable Continue IV antibiotic. Patient is feeling great. Significant resolution of abdominal pain and discomfort. Complete resolution of bloody diarrhea. Patient would like to be discharged home. We will discharge patient on a combination of Levaquin daily and Flagyl 3 times a day. Patient is allergic to penicillin and that limits antibiotic selection otherwise. Recommend colonoscopy in 6 to 8 weeks to exclude luminal pathology. Acute blood loss anemia secondary to above Blood pressure is on the high side. Hemoglobin is 11. No justification for blood transfusion at this time. Hemoglobin continues to be stable. Blood pressure continues to be stable. Hypertension. Blood pressure is under better control Continue amlodipine 2.5 mg daily. [place], likely secondary to sepsis and volume loss Resolving, discontinued IV fluid infusion. CAD, no active chest pain Hold aspirin at this time due to bloody diarrhea. Hypothyroidism Continue Synthroid DVT prophylaxis Hold Lovenox due to bloody diarrhea, compression stocking. Consideration to resume Lovenox today or tomorrow given the resolution of bloody diarrhea. Chronic, subacute medical conditions not listed above, abnormal labs and imaging. These would need to be addressed. Could be addressed later on or in the outpatient setting by PCP collaboration with other needed outpatient p roviders when time and condition are appropriate. Patient has multiple medical issues as listed above and others that are not listed. All appear to be stable. Patient is feeling great. Resolution of bloody diarrhea. Resolution of his abdominal pain and cramps. Improvement of hemodynamics. Improvement of lab work. At this time, I do not have any clear or strong clinical justification to extend inpatient hospitalization. Patient however will require close and frequent monitoring as well as additional work- up, investigation and therapeutic intervention that could take place from this point on post discharge. That is to prevent relapse, decompensation, rehospitalization and other medical implications.. I instructed patient to ask her primary care doctor to obtain [facility] record entirely to address abnormalities seen on labs and imaging that I have and have not addressed during this hospitalization, follow-up on pending blood work, imaging and pathology is if available and to follow-up on needed medical care in the outpatient setting. Time Spent with Patient Time attestation: Total time spent providing and/or coordinating discharge services: Time spent: greater than 30 minutes Exam Narrative Exam Narrative: [pt is awake and alert. oriented to place, time and person HEENT: [place] conjunctiva and NL buccal mucosa Neck: Supple, no tenderness Endocrine: No Thyromegaly. Vascular: No JVD or carotid bruit. Lymphatic: No cervical lymphadenopathy. Chest: CTA no DTP. Heart RRR, no extra sound or murmur. Abd: Soft, no tenderness, no rebound, no guarding and no rigidity. LE: No cyanosis or clubbing, no varices or edema. Neuro: A A O. Nl speech, comprehension and attention. Nl and symetrical motor and tone examination through out. []] Constitutional Vital Signs, click to edit/add: Last Vital Signs Temp 97.8 F 05/25/25 08:00 Pulse 64 05/25/25 08:36 Resp 16 05/25/25 08:36 BP 136/68 05/25/25 08:00 Pulse Ox 94 L 05/25/25 08:00 O2 Del Method Room Air 05/25/25 08:00 Discharge Plan Discharge Disposition: Home, Self-Care Condition: Fair Discharge Medications: New amlodipine 2.5 mg tablet 2.5 mg PO QD Qty: 30 1RF levofloxacin 500 mg tablet 500 mg PO DAILY 7 Days Qty: 7 0RF metronidazole 500 mg tablet 500 mg PO TID Qty: 30 0RF Continued atorvastatin 40 mg tablet 40 mg PO BEDTIME tizanidine 4 mg tablet 4 mg PO BEDTIME zolpidem 10 mg tablet 10 mg PO QDAY levothyroxine [Synthroid] 50 mcg tablet 50 mcg PO QDAY ranolazine 500 mg tablet extended release 12 hr 500 mg PO Q12H aspirin 325 mg tablet 325 mg PO DAILY lansoprazole 15 mg tablet,disintegrat, delay rel 15 mg PO Q12H nitroglycerin 0.4 mg tablet, sublingual 0.4 mg sublingual Q5M PRN (Reason: chest pain) Rx Instructions: do not exceed 3 doses per episode furosemide 20 mg tablet 20 mg PO Q12H PRN (Reason: edema) carvedilol 3.125 mg tablet 3.125 mg PO Q12H Changed celecoxib 100 mg capsule 100 mg PO Q24H PRN (Reason: pain) Qty: 0 0RF Print Language: [place] Activity Restrictions/Additional Instructions: I may not have addressed or treated all of your medical illnesses or the abnormal blood work or imaging studies during this hospitalization. Please ask your primary care provider to obtain [facility] records entirely to follow up on all of the abnormal physical, laboratory, and imaging findings that I have not addressed. Please return back to the emergency room or seek medical attention if your symptoms worsen or return. I would recommend that you have a colonoscopy after 6 weeks to make sure that were not missing anything such as tumor or growth inside your colon. This will be arranged by your primary care doctor. Discharging you from [facility] does not mean that your medical care ends here and now. You may still need additional monitoring, work up, investigation, and treatment plan to be handled from this point on by out patient providers including your primary care provider and specialists. For any medication question, please contact your retail pharmacist or your primary care provider. Thank you. Forms: Portal Instructions Follow Up Appointments: 05/30 @ 9:45am with Dr. Archer [phone]
[2025-05-25 09:48] VITALS: BP 136/68
[2025-05-25] MEDS: AMLODIPINE BESYLATE 5 MG TABLET 2.5 MG PO (09:48)
[2025-05-25] MEDS: RANOLAZINE 500 MG TAB.ER.12H PO (09:48)
[2025-05-25] MEDS: PANTOPRAZOLE SODIUM 40 MG TABLET.DR PO (09:49)
[2025-05-25] MEDS: CARVEDILOL 6.25 MG TABLET PO (09:49)
--- NOTE | 2025-05-25 09:53 | SWNOTE1 ---
SW did review 2nd notice of Important Message from Medicare with pt. No questions at this time.
[2025-05-25] MEDS: LEVOFLOXACIN IN DEXTROSE 5 % 750 MG/150 ML PREMIX 100 MG IV (11:01)
--- NOTE | 2025-05-26 12:32 | CM.DCFOLLOWU ---
Person spoke with: patient How are you feeling? feeling well, not much of an appetite yet How is your pain? no pain no bleeding Did you understand your discharge instructions?yes Do you have any questions about your discharge instructions?no Were you given any prescriptions at discharge?yes Were you able to get your prescriptions filled?yes Do you understand how to take your medications as ordered?yes Do you have any questions about your follow up appointment and do you plan to keep your follow up appointment? no questions, follow up appointment reviewed and pt confirmed he knows Is there anything else that you would like to discuss? no Questions/Comments/Concerns/Other: none
== END 2025-05-25 12:40 | disposition home or self-care (01) | DRG 872 ==
LOC: ER 05-22 02:58 → MS 05-22 12:28
PROVIDERS: Admitting Provider Internal Medicine; Emergency Provider Emergency Medicine; PCP Family Medicine; Visit Provider Internal Medicine
DX: A41.9 Sepsis, unspecified organism (principal); K57.32 Diverticulitis of large intestine without perforation or abscess without bleeding; N17.9 Acute kidney failure, unspecified; D62 Acute posthemorrhagic anemia; K52.9 Noninfective gastroenteritis and colitis, unspecified; Z79.82 Long term (current) use of aspirin; E03.9 Hypothyroidism, unspecified; I10 Essential (primary) hypertension; Z98.1 Arthrodesis status; Z90.49 Acquired absence of other specified parts of digestive tract; Z79.890 Hormone replacement therapy; Z79.899 Other long term (current) drug therapy; I25.10 Atherosclerotic heart disease of native coronary artery without angina pectoris; R65.20 Severe sepsis without septic shock; Z86.19 Personal history of other infectious and parasitic diseases
CPT/HCPCS: 36415; 74174; 80048; 80053; 80076; 81001; 82150; 83605; 83690; 83735; 84100; 84484; 85014; 85018; 85025; 85027; 86850; 86900; 86901; 87045; 87046; 87427; 87493; 93005; 96361; 96365; 96367; 96368; 96372; 96375; 96376; 99285; J0360; J0744; J1100; J1650; J1836; J2270; J2405; Q9966

== ENCOUNTER 2025-07-10 13:25 | Outpatient (OUT) | payer MEDICARE, SELFPAY ==
--- OUTSIDE RECORDS SUMMARY | 2025-07-10 13:31 | XMS_ITS | Clinical Summary ---
Author Organization [facility] Address [address] [place] [address] Care Team Providers Care Comptometrist Name Role Phone Eriberto Archer MD Primary Care Provider [phone] Allergies Active AllergyReactionsCriticalityNoted DateCommentsHydrocodoneUnknownHigh 10/25/20146444YdirrvyftloXbflqvmLndn25/11/9488MgsivbtypeIxeksxhDmve15/11/2015 Medications MedicationSigDispense QuantityRefillsLast FilledStart DateEnd DateStatus zolpidem (AMBIEN) 10 mg tab Take 10 mg by mouth daily at bedtime.Active aspirin 325 mg tablet Take 325 mg by mouth once daily.Active metoprolol tartrate, short acting, (LOPRESSOR) 50 mg tablet Take 0.5 tablets by mouth twice daily. 180 tablet ctive atorvastatin (LIPITOR) 40 mg tablet Take 1 tablet by mouth once daily. 30 tablet ctive lansoprazole (PREVACID) 15 mg capsule Take 15 mg by mouth once daily.Active ranolazine ER (RANEXA) 500 mg 12 hr tablet Take 1 tablet by mouth twice daily. 180 tablet ctive amLODIPine (NORVASC) 5 mg tablet Take 0.5 tablets by mouth once daily. 90 tablet ctive Active Problems ProblemNoted DateDiagnosed DateHypertensionDyspnea and respiratory abnormalities Chest painCAD (coronary artery disease) Family History Medical HistoryRelationCommentsCancerFatherlungHeartMaternal GrandfatherRelation StatusCommentsFatherDeceasedMaternal GrandfatherMotherDeceased Social History Tobacco UseTypesPacks/DayYears UsedDateSmoking Tobacco: NeverSmokeless Tobacco: NeverAlcohol UseStandard Drinks/WeekCommentsNo0 (1 standard drink = 0.6 oz pure alcohol)Sex and Gender InformationValueDate RecordedSex Assigned at BirthNot on fileLegal DlzWuof7910/13/2014 3:55 PM ESTGender IdentityNot on fileSexual OrientationNot on fileOccupationIndustryJob Start DateJob End Datefacilities managementNot on fileNot on fileNot on file Last Filed Vital Signs Vital SignReadingTime TakenCommentsBlood Axszxtnd592/6307 9:42 AM EDT Oigiz878302/23/2015 9:42 AM YXJWmhzybmyrdo03 ??C (98.6 ??F)02/23/2015 9:42 AM EDT Respiratory Swpz6252 9:42 AM EDTOxygen Ipzmyywsue41%02/23/2015 9:42 AM EDTInhaled Oxygen Concentration--Duwuzr38.8 kg (156 lb)02/23/2015 9:42 AM EDT Kxjexf421 cm (5' 8.5 )02/23/2015 9:42 AM EDTBody Mass Index23.37002/23/2015 9:42 AM EDT Plan of Treatment Health MaintenanceDue DateLast DoneCommentsAnxiety Tewngepia01/18/1972Depression Eyncuglqo53/18/1972Hepatitis C Ebmojnmnf15/18/1972DTaP,Tdap,Td Vaccine (1 - Tdap)1973Lipid Yecoclwpb30/18/1989CT Kbbtrjawisyy80/18/1999Cologuard (FIT-DNA)01/01/19997867Jorqtxgcdhs63/18/1999Colorectal Cancer Eolriocva49/18/1999 Diabetes Nyvqmkang53/18/1999Fecal Occult Blood01/01/19998901Koqbghvhtzhsk42/18/1999 Pneumococcal Vaccine: 50+ (1 of 1 - PCV)01/02/2004Shingrix Vaccine (1 of 2) 01/02/2004Advance Directive Bhnhpinjqm08/01/2025ovid-19 Vaccine (1 - 2024- season)2025Influenza Vaccine (#1)2025RSV Vaccine (1 - 1-dose 75+ series)2029 Insurance Care Teams Team MemberRelationshipSpecialtyStart DateEnd Eriberto Archer MD PCP - GeneralFamily Medicine10/13/14
--- OUTSIDE RECORDS SUMMARY | 2025-07-10 13:31 | XMS_ITS | Clinical Summary ---
Author Organization [facility] Address [address] [place] [address] Care Team Providers Care Garden Tractor Mechanic Name Role Phone Unavailable Primary Care Provider Unavailabl e Allergies Active AllergyReactionsCriticalityNoted DateCommentsAmlodipineGI intoleranceLow 05/20/2023 LE swelling MbmdnnhbeedAbvxojkDttw51/11/2015NabumetoneOther,ZyoesuaCgvr93/11/2015 Other Reaction(s): difficulty swallowing, Dysphagia PenicillinsUnknown,Shortness of breath,UotthXikh41/11/2015 Medications MedicationSigDispense QuantityRefillsLast FilledStart DateEnd DateStatus Ambien 10 MG tablet 1 (one) time each day at the same time.03/06/2023ctive ranolazine (Ranexa) 500 MG 12 hr tablet TAKE 1 TABLET TWICE A DAY for 90005/04/2023ctive nitroglycerin (Nitrostat) 0.4 MG SL tablet as directed Umgfokojnt38/18/2023ctive Synthroid 50 MCG tablet 1 (one) time each day at the same time.05/04/2023ctive lansoprazole (Prevacid) [address] capsule Take 15 mg by mouth.Active carvedilol (Coreg) 25 MG tablet every 12 (twelve) hours.05/21/2023ctive atorvastatin (Lipitor) 40 MG tablet 1 (one) time each day at the same time.11/26/2022ctive aspirin 325 MG tablet 1 (one) time each day at the same time.Active celecoxib (CeleBREX) 100 MG capsule Take 100 mg by mouth in the morning and 100 mg before bedtime.06/07/2024ctive Active Problems No known active problems Family History Medical HistoryRelationNameCommentsMultiple myelomaNeg Hx Social History Tobacco UseTypesPacks/DayYears UsedDateSmoking Tobacco: NeverSmokeless Tobacco: Never Tobacco Cessation:Counseling Given: Not Answered Alcohol UseStandard Drinks/WeekCommentsNever0 (1 standard drink = 0.6 oz pure alcohol)Sex and Gender InformationValueDate RecordedSex Assigned at BirthNot on fileLegal ExjDlmn4912/15/2022 8:31 PM EDTGender IdentityNot on fileSexual OrientationNot on file Last Filed Vital Signs Vital SignReadingTime TakenCommentsBlood Rqjwunbd381/7808/05/2023 9:47 AM EST Pulse--Temperature--Respiratory Rate--Oxygen Saturation--Inhaled Oxygen Concentration--Weight--Height--Body Mass Index-- Plan of Treatment Not on file Insurance
--- OUTSIDE RECORDS SUMMARY | 2025-07-10 13:31 | XMS_ITS | Clinical Summary ---
Author Organization [place] [facility] Address [id number] [address] [place] [address] Care Team Providers Care Agriculture Extension Specialist Name Role Phone Eriberto Archer MD Primary Care Provider + Allergies Active AllergyReactionsCriticalityNoted SxqaRwgriisbGcrwyhzmare02/11/2022 Medications MedicationSigDispense QuantityRefillsLast FilledStart DateEnd DateStatus aspirin 325 mg tablet Take 1 tablet (325 mg total) by mouth in the morning.Active atorvastatin (LIPITOR) 40 mg tablet Take 1 tablet (40 mg total) by mouth in the morning.Active lansoprazole (PREVACID) 15 mg capsule Take 1 capsule (15 mg total) by mouth in the morning.Active levoFLOXacin (LEVAQUIN) 500 mg tablet Take 1 tablet (500 mg total) by mouth in the morning.Active metoprolol tartrate (LOPRESSOR) 25 mg tablet Take 1 tablet (25 mg total) by mouth in the morning and 1 tablet (25 mg total) before bedtime.Active mupirocin (BACTROBAN) 2 % ointment Apply 1 application topically 3 (three) times a day.Active nitroglycerin (NITROSTAT) 0.[address] 1 tablet (0.4 mg total) under the tongue every 5 (five) minutes as needed for chest pain.Active ondansetron (ZOFRAN) 4 mg tablet Take 1 tablet (4 mg total) by mouth every 8 (eight) hours as needed for nausea or vomiting.Active ranolazine (RANEXA) 500 mg 12 hr tablet Take 1 tablet (500 mg total) by mouth in the morning and 1 tablet (500 mg total) before bedtime.Active levothyroxine (SYNTHROID, LEVOTHROID) 50 MCG tablet Take 1 tablet (50 mcg total) by mouth in the morning.Active zolpidem (AMBIEN) 10 mg tablet Take 1 tablet (10 mg total) by mouth nightly as needed for sleep.Active Social History Tobacco UseTypesPacks/DayYears UsedDateSmoking Tobacco: Never AssessedSex and Gender InformationValueDate RecordedSex Assigned at BirthNot on fileLegal Sex Male07/27/2022 9:45 AM ESTGender IdentityNot on fileSexual OrientationNot on file Last Filed Vital Signs Vital SignReadingTime TakenCommentsBlood Vwbdbelh424/7507/27/2022 9:47 AM EST Psciz468707/27/2022 9:47 AM PSYIcwtxyoebzr55.6 ??C (97.8 ??F)07/27/2022 9:47 AM ESTRespiratory Vjgj737709/27/2021 9:47 AM ESTOxygen Bxcvtusakr53%07/27/2022 9:47 AM ESTInhaled Oxygen Concentration--Vplchp35.4 kg (142 lb)07/27/2022 9:47 AM EST Xkyflm993.7 cm (5' 8 )07/27/2022 9:47 AM ESTBody Mass Index21.5907/27/2022 9:47 AM EST Plan of Treatment Health MaintenanceDue DateLast DoneCommentsDepression Isyrzdvfm21/18/1966Tobacco Cegiyzqlt04/18/1966DTaP,Tdap and Td Vaccines (1 - Tdap)1973Zoster (Shingles) Vaccine (1 of 2)01/02/2004Fall Risk Hlsrltlxl19/18/2019Adult BMI Wcvspzblo77Influenza Xfbglpn0804/17/2025RSV ( or age 60+ yrs) (1 - 1-dose 75+ series)2029 Medical Devices Not on file Insurance Care Teams Team MemberRelationshipSpecialtyStart DateEnd Eriberto Archer MD PCP - GeneralFamily Xeynmkpl52/11/22
--- OUTSIDE RECORDS SUMMARY | 2025-07-10 13:31 | XMS_ITS | Clinical Summary ---
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 Name Role Phone Eriberto Archer MD Primary Care Provider [phone] Allergies Active AllergyReactionsCriticalityNoted DateCommentsAmlodipineGI intoleranceLow 05/20/2023 LE swelling PsznzvlabpvMdgmenkCefb97/11/2015NabumetoneOther,LrbrtgwFydo02/11/2015Penicillins Other,AcfyhunOxoi28/11/2015 Medications MedicationSigDispense QuantityRefillsLast FilledStart DateEnd DateStatus aspirin 325 mg tablet Take 325 mg by mouth in the morning.Active atorvastatin (Lipitor) 40 mg tablet Take 40 mg by mouth at bedtime.02/23/2023ctive lansoprazole (Prevacid) [address] capsule Take 15 mg by mouth 2 times daily.Active ranolazine (Ranexa) 500 mg 12 hr tablet Take 500 mg by mouth 2 times daily.11/21/2014ctive levothyroxine (Synthroid) 50 mcg tablet Take 50 mcg by mouth.05/04/2023ctive zolpidem (Ambien) 10 mg tablet TAKE 1 TABLET BY MOUTH ONCE DAILY AT BEDTIME NEEDED FOR 90 DAYS03/06/2023 Active carvedilol (Coreg) 25 mg tablet Indications:Essential hypertensionTake 1 tablet (25 mg) by mouth with breakfast and with evening meal. 180 tablet ctive nitroglycerin (Nitrostat) 0.4 mg SL tablet as directed Htxfjjkgru09/18/2023ctive furosemide (Lasix) 20 mg tablet Indications:Leg swellingTake 1 tablet (20 mg) by mouth if needed each day (PRN leg swelling). 30 tablet ctive Active Problems ProblemNoted DateDiagnosed DatePre-op ouphyiugow52/01/2023MI 22.0-22.9, adult oronary jgnbgnzchbfqbkbc15ervical booussslwynhm30hest pain05/20/20230539Eeofqyperuqdmt83/04/2023 05/20/2023yshidrotic wbddea46yspnea and respiratory uzbheurjljkzi12outHearing loss05/20/2023 05/20/2023History of rqmgyvoodgvifyh64Hyperlipidemia05/20/2023 05/20/20233863Lbcopyvcidzr12InsomniaReducible right inguinal viupyc29Sialolithiasis Superficial thrombosis of legShortness of pwifnu3305/20/2023 Preoperative wrchmrmru23/04/2023 Family History Medical HistoryRelationNameCommentsHeart attackPaternal GrandfatherRelationName StatusCommentsPaternal Grandfather Social History Tobacco UseTypesPacks/DayYears UsedDateSmoking Tobacco: NeverSmokeless Tobacco: Never Tobacco Cessation:Counseling Given: Not Answered Alcohol UseStandard Drinks/WeekCommentsNot Currently0 (1 standard drink = 0.6 oz pure alcohol)UT Safety & EnvironmentAnswerDate RecordedFear of Current or Ex-PartnerNot on file10/09/2023Emotionally AbusedNot on file10/09/2023hysically AbusedNot on file10/09/2023Sexually AbusedNot on 10/09/2023hysically or Sexually AbusedNot on file10/09/2023Sex and Gender InformationValueDate Recorded Sex Assigned at BirthNot on fileLegal EygYnyf29/03/2023 1:45 PM EDTGender IdentityNot on fileSexual OrientationNot on file Last Filed Vital Signs Vital SignReadingTime TakenCommentsBlood Oljrhlaj523/6811 2:21 PM EST Cceqn7415 2:21 PM ESTTemperature--Respiratory Yclu594808/29/2022 1:42 PM ESTOxygen Hetrycjfvm16%07/08/2023 2:21 PM ESTInhaled Oxygen Concentration-- Cbgxpy79.2 kg (146 lb)07/08/2023 2:21 PM HWLTumssd267.7 cm (5' 8 )07/08/2023 2:21 PM ESTBody Mass Index22.211 2:21 PM EST Plan of Treatment Health MaintenanceDue DateLast DoneCommentsCT Tjffpmfvndmm1954Colonoscopy 1954olorectal Cancer Dxqbvhkag1954FIT-DNA1954FIT1954 FOBT1954Medicare Annual Wellness (AWV)1955 2763Fywtgmrgthsot1954 Depression Wxmiytyde61/18/1966Pneumococcal Vaccine: 50+ Years (1 of 2 - PCV) 1973Zoster Vaccines (1 of 2)01/02/2004Fall Risk Qghdqtzly57/18/2019COVID- 19 Vaccine (1 - season)2025Influenza Vaccine (#1)2025dult Dzkirvy42HIB VaccinesAged OutNo longer eligible based on patient's age to complete this topicHPV VaccinesAged OutNo longer eligible based on patient's age to complete this topicIPV VaccinesAged OutNo longer eligible based on patient's age to complete this topicMeningococcal B VaccineAged OutNo longer eligible based on patient's age to complete this topicMeningococcal VaccineAged OutNo longer eligible based on patient's age to complete this topic Rotavirus VaccinesAged OutNo longer eligible based on patient's age to complete this topic Insurance * Guarantor: Donnie Denton TypeRelation to PatientDate of BirthPhone Billing AddressPersonal/RetdyvFdbl1955 [phone] [address] Care Teams Team MemberRelationshipSpecialtyStart DateEnd Eriberto Archer MD [address] [facility] [place] [address] PCP - Trpokwy91/4/23
--- OUTSIDE RECORDS SUMMARY | 2025-07-10 13:35 | XMS_ITS | CCD ---
Author Organization [facility] Care Team Providers Care Director Financial Services Name Role Phone GIANNI ., DR HORNER [...] Unavailable Elissa Wu Attending Unavailable Allergies Allergy ClassificationReported Allergen(s)Allergy TypeDate of OnsetReaction(s) Facility (3 sources)Penicillins; 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: [PENICILLINS]Drug allergy (disorder) 44-22-7664[facility] (4 sources)amLODIPine; 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: [AMLODIPINE]Drug Ormulwj96-09-6202[facility] (5 sources)HYDROcodone; 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: [HYDROCODONE]Drug Jpjyeot90-56-5585Vrxhiih [facility] (4 sources)nabumetone; 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: [NABUMETONE]Drug Mdbogjb88-55-3141Cbokc, UnknownUnOhioHealth Riverside Methodist Hospital Repository (3 sources)PenicillinsDrug Oqjnelsupgm56-84-5167Sekalpn, Shortness of breath, OtherNOMS Healthcare (1 source)nabumetone; 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: [Relafen][facility]ergyCl[facility] Rep[facility] Medications Current Medications MedicationDrug Class(es)DatesSig (Normalized)Sig (Original)aspirin 325 mg oral tablet (4 sources)Platelet Aggregation Inhibitor, Nonsteroidal Anti-inflammatory Drug Start: 84-63-5883lxhh 1 tablet by mouth once dailyAspirin 325 mg tablet Active 325 MG PO Daily September 07, 2024 12:00amaspirin 325 MG tablet 1 (one) time each day at the same time. Activeatorvastatin 40 mg oral tablet (4 sources)HMG-CoA Reductase InhibitorStart: 64-23-2469yild 1 tablet by mouth once dailyAtorvastatin 40 mg tablet Active 40 MG PO Daily September 07, 2024 12:00amStart: 07-07-7955hzhhhiqmnnpe (Lipitor) 40 MG tablet 1 (one) time each day at the same time. 11/26/2022 Activecarvedilol 12.5 mg oral tablet (4 sources)alpha-Adrenergic J Luis, beta-Adrenergic BlockerStart: 09-07-2024 take 1 tablet by mouth twice daily at mealtimeCarvedilol 12.5 mg tablet Active 12.5 MG PO Twice daily September 07, 2024 12:00am must administer with a meal/foodStart: 39-22-3541yofcfrgvnr (Coreg) 25 MG tablet every 12 (twelve) hours. 05/21/2023 Activecelecoxib 100 mg oral capsule (3 sources)Nonsteroidal Anti-inflammatory DrugStart: 88-29-0106wjsb 1 capsule by mouth twice dailyCelecoxib 100 mg capsule Active 100 MG PO Twice daily September 07, 2024 12:00amStart: 31-84-6344nhvj 1 capsule by mouth in the morning celecoxib (CeleBREX) 100 MG capsule Take 100 mg by mouth in the morning and 100 mg before bedtime. 06/07/2024 Activefurosemide 20 mg oral tablet (1 source)Loop DiureticStart: 18-56-8208dflc 1 tablet by mouth once daily Furosemide 20 mg tablet Active 20 MG PO Daily September 07, 2024 12:00am lansoprazole 15 mg delayed release oral capsule (4 sources)Proton Pump InhibitorStart: 85-68-8816aaoe 1 capsule by mouth once dailyLansoprazole 15 mg capsule,delayed release(DR/EC) Active 15 MG PO Daily September 07, 2024 12:00amlansoprazole (Prevacid) [address] capsule Take 15 mg by mouth. Activelevothyroxine sodium 0.05 mg oral tablet (4 sources)l-ThyroxineStart: 80-36-4488wfod 1 tablet by mouth once daily Levothyroxine 50 mcg tablet Active 50 MCG PO Daily September 07, 2024 12:00am Start: 95-26-1921Ieuuxqgub 50 MCG tablet 1 (one) time each day at the same time. 05/04/2023 Activemupirocin 20 mg/ml topical cream (1 source)RNA Synthetase Inhibitor AntibacterialStart: 59-75-5309Kcuqpefjo Calcium 2 % cream Active 1 APPLIC TOPICAL Twice daily September 07, 2024 12:00am nitroglycerin 0.4 mg sublingual tablet (4 sources)Nitrate VasodilatorStart: 63-19-4894Ebevbdahuogkk 0.4 mg tablet, sublingual Active 0.4 MG SUBLINGUAL Q5M as needed September 07, 2024 12:00am do not exceed 3 doses per episodeStart: 07-69-9282jarpzplgowvxu (Nitrostat) 0.4 MG SL tablet as directed Sublingual 05/04/2023 Wxnjgg52 hr ranolazine 500 mg extended release oral tablet (4 sources)Anti-anginalStart: 15-86-3893onba 1 tablet by mouth twice daily Ranolazine 500 mg tablet extended release 12 hr Active 500 MG PO Twice daily September 07, 2024 12:00amStart: 83-80-9107nodhxxhjaq (Ranexa) 500 MG 12 hr tablet TAKE 1 TABLET TWICE A DAY for 90 05/04/2023 ActivetiZANidine 4 mg oral tablet (1 source)Central alpha-2 Adrenergic AgonistStart: 38-35-0690dsxy 1 tablet by mouth once daily at bedtimeTizanidine 4 mg tablet Active 4 MG PO Daily at bedtime September 07, 2024 12:00amtriamcinolone acetonide 1 mg/ml topical cream (1 source)CorticosteroidStart: 54-96-1201Vgqpljixnnmfr Acetonide 0.1 % cream Active 1 APPLIC TOPICAL Daily September 07, 2024 12:00amzolpidem tartrate 10 mg oral tablet (4 sources)gamma-Aminobutyric Acid-ergic AgonistStart: 19-29-6734jlmb 1 tablet by mouth once daily at bedtimeZolpidem 10 mg tablet Active 10 MG PO Daily at bedtime September 07, 2024 12:00amStart: 02-87-5213Baminj 10 MG tablet 1 (one) time each day at the same time. 03/06/2023 Active Problems Active Problems Problem ClassificationProblemDateDocumented DateEpisodic/ChronicCoronary atherosclerosis and other heart disease (4 sources)Atherosclerotic heart disease of [place] coronary artery without angina pectoris; 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: [Unstable angina]Onset: 13-82-9585Lzktbpo Disorders of lipid metabolism (2 sources)Hyperlipidemia, unspecified; 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: [Hypercholesterolemia] Onset: 322687-51-6567VqtvxfzWeneidoolvgmtv and diverticulitis (1 source)Diverticulitis of large intestine without perforation or abscess without bleeding; 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: [DVTRCLI LG INT NO PERF/ABSC W/O BL]Onset: 14-48-1479ZsywyceIngrohmiqy disorders (1 source)Gastroesophageal reflux disease; 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: [Gastro-esophageal reflux disease without esophagitis]18-42-3397HufucqgEujdscypy hypertension (2 sources)Essential (primary) hypertension; 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: [Hypertensive disorder]Onset: 294142-14-3238SqrpupuGckm and other crystal arthropathies (1 source)Gout, unspecified; 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: [GOUT UNSPECIFIED]Onset: 06-06-2022 ChronicNeoplasms of unspecified nature or uncertain behavior (2 sources)Neoplastic disease; 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: [Neoplasm of unspecified behavior of bone, soft tissue, and skin]76-68-8976PbfufxmnWnidrrlzqev chest pain (6 sources)Chest pain, unspecified; 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: [Other chest pain]Onset: 65-61-3265BdgyhrsfMmhck and unspecified benign neoplasm (2 sources)Melanocytic nevus of trunk; 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: [Melanocytic nevi of trunk] 89-83-0814RujqruskTwwca connective tissue disease (6 sources)Other specified soft tissue disorders; 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: [OTHER SPEC SOFT TISSUE DISORDERS]Onset: 63-16-1745CpfjoxebFqazq lower respiratory disease (4 sources)Solitary pulmonary nodule; 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: [SOLITARY PULMONARY NODULE] Onset: 74-41-7489KslunjswQmthp lower respiratory disease (3 sources)Other forms of dyspnea; 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: [OTHER FORMS OF DYSPNEA]Onset: 83-87-7103CedarlzfNxbyw lower respiratory disease (2 sources)Shortness of breath; 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: [Shortness of breath]Onset: 14-62-4734UzpjwfbbBmttn non-traumatic joint disorders (4 sources)Pain in right hip; 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: [PAIN IN RIGHT HIP]Onset: 11-13-2022 EpisodicOther screening for suspected conditions (not mental disorders or infectious disease) (4 sources)Encounter for screening for malignant neoplasm of prostate; 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: [Encounter for screening for malignant neoplasm of rectum]Onset: 01-83-9719IvqbhtcuIjjaw skin disorders (2 sources)Seborrheic keratosis; 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: [Other seborrheic keratosis] 86-73-4046EptmutwcBjlwu skin disorders (2 sources)Lentiginosis; 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: [Other melanin hyperpigmentation] 29-09-5659HjjjgoooGqzhx skin disorders (2 sources)Actinic keratosis; 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: [Actinic keratosis]06-09-2024 EpisodicOther skin disorders (1 source)Eruption; 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: [Rash and other nonspecific skin eruption] 81-82-8293GomzzqdrFtzajafd codes; unclassified (1 source)Insomnia; 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: [Insomnia, unspecified]07-53-2981Szexzcrn Thyroid disorders (1 source)Hypothyroidism; 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: [Hypothyroidism, unspecified]09-07-2024 ChronicUnclassified (1 source)CONTACT W/AND (SUSP) EXPOS COVID-19; 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: [CONTACT W/AND (SUSP) EXPOS COVID-19]Onset: 04-24-2022 Past or Other Problems Problem ClassificationProblemDateDocumented DateEpisodic/ChronicAbdominal pain (1 source)Unspecified abdominal pain; 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: [UNSPECIFIED ABDOMINAL PAIN] Onset: 93-73-4928FrctlfvwLpodxvsc mellitus without complication (1 source)Other abnormal glucose; 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: [OTHER ABNORMAL GLUCOSE]Onset: 51-55-2663GqqqgfwgUztlfb and vomiting (1 source)Nausea with vomiting, unspecified; 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: [NAUSEA WITH VOMITING UNSPECIFIED]Onset: 66-49-2322DmbmrubhTcvnd aftercare (1 source)long-term (current) use of aspirin; 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: [ASSISTED CURRENT USE OF ASPIRIN]Onset: 92-55-2140SwavawvkXeltmxhlq; thrombophlebitis and thromboembolism (6 sources)Personal history of other venous thrombosis and embolism; 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: [Embolism and thrombosis ofsuperficial veins of left lower extremity]Onset: 71-77-0706KuxolzmyTkygefrwgko; intervertebral disc disorders; other back problems (4 sources)Radiculopathy, cervical region; 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: [RADICULOPATHY CERVICAL REGION]Onset: 99-29-4605Prehwqkx Results Test NameValueInterpretationReference RangeFacilityNo Panel Informationon 65-91-8078Dhzw of biopsy: tangential Informed consent: discussed and [...] Photo taken Amount of lidocaine used: 0.[address] [place] [address] on *Take lasix for 2 days then as needed *Limit salt/sodium intakeNormalUniversity [facility]cy Health [facility] Anne HospitalOffice Visiton 90-10-0781Ioqjpl-up [id number] Donnie Denton 1955 M Date Provider Department Center 07/08/2023 Kevin-BLAYNE DAILY Family History Problem Relation Age of Onset Heart attack Paternal Grandfather Family Status - Relation Status Age at Paternal Grandfather Level of Service:16526 [place] OFFICE/OUTPATIENT ESTABLISHED MOD [facility] 30-39 MIN Reason for Visit and Comments: Edema [[id number]]NormalUnOhioHealth Riverside Methodist HospitalANESon 56-12-9286MKOQ Attestation signed by Eliane Murillo MD at 06/29/2023 9:56 AM Eliane Murillo MD, MPH, FACC, [facility], [facility] Interventional Cardiology Pager Email: [email or web address] Patient: Donnie Denton Procedure Information Date/Time: 06/29/23 1030 Procedures: Coronary angiography (Bilateral) - per Maria G in pre-cert at [facility], this has already been authorized thru Aug 2023 - right femoral approach Right heart cath Location: [facility] 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 Med Physical Exam Airway Mallampati: III Cardiovascular Rhythm: regular Rate: normal Dental Pulmonary Breath sounds clear to auscultation Abdominal Anesthesia Plan ASA 3 other (Moderate sedation) Anesthetic plan and risks discussed with patient. Use of blood products discussed with patient who consented to blood products. Plan discussed with fellow and attending. Additional Equipment RequestsNormalUniversity of Texas Health Harris Methodist Hospital StephenvilleHPon 60-57-3512II Attestation signed by Eliane Murillo MD at 06/29/2023 9:57 AM Eliane Murillo MD, MPH, [facility], [facility], [facility] Interventional Cardiology Pager Email: [email or web address] History Of Present Illness [...] evaluated by cardiothoracic surgery at [facility] and elected to pursue medical management at [...] treated since 2014. Meaghan Mukherjee DO, MPH [employer] [facility] HospitalNURSNOTEon 09-92-7323RFETNATCUI educated pt on d/c instructions. RN encouraged pt to voice any questions or concerns. Pt verbalizes no questions or concerns at this time.[facility] HospitalOrders Onlyon 16-93-0058Wllsjt [id number] Donnie Denton 1955 Date Provider Department Center 06/17/2023 Avi-DEIRDRE RIDLEY VALERIANO Robb Family History Problem Relation Age of Onset Heart attack Paternal Grandfather Family Status - Relation Status Age at Paternal GrandfatherNSumma HealthLetter (Out)on 48-97-1959Abuxpu (Out)[id number] Donnie Denton 1955 Date Provider Department Center 05/26/2023 None-None [facility] Family History Problem Relation Age of Onset Heart attack Paternal Grandfather Family Status - Relation Status Age at Paternal GrandfatherNSumma HealthOffice Visiton 55-49-0037Zylqep-up [id number] Donnie Denton 1955 M Date Provider Department Center 05/20/2023 271-ELIANE MURILLO Family History Problem Relation Age of Onset Heart attack Paternal Grandfather Family Status - Relation Status Age at Paternal Grandfather Level of Service:84884 [place] OFFICE/OUTPATIENT NEW HIGH MDM 60-74 MINUTESNormal Memorial HospitalOrders Onlyon 89-67-9830Uwaeby [id number] Donnie Denton 1955 M Date Provider Department Center 05/20/2023 HIMANSHU PRICE [facility] Hos Family History Problem Relation Age of Onset Heart attack Paternal Grandfather Family Status - Relation Status Age at Paternal GrandfatherNSumma HealthXR HIP RT 2 3V W PELVISon 33-33-4887QN HIP RT 2 3V W PELVISEXAM: AP of the pelvis and right hip [...] Electronically authenticated by: ANTONI PENALOZA Date: 2022-11-13 22:38[facility] HospitalXR LSPINE MIN 4 VIEWSon 83-97-3027UT LSPINE MIN 4 VIEWS EXAMINATION: XR LSPINE MIN 4 VIEWS HISTORY: Pain in right hip joint COMPARISON: No relevant comparison available. FINDINGS: BONES: Mild to moderate widespread spondylosis and facet osteoarthritis. No visible acute bony abnormality. DISC SPACES: Normal. No significant disc height narrowing, subluxation, or endplate abnormality. PARASPINOUS: Negative. No paraspinous abnormality is seen. OTHER: Negative. IMPRESSION: Rgqv-hq-zgnzpztv degenerative changes Electronically authenticated by: ANTONI TRACEY Date: 2022-11-14 07:58[facility] HospitalCREATININEon 68-90-1101Xtwtqjnxhb [Mass/Vol]1.04 mg/dLNormal 0.70-1.30[facility] EastComment on above:Performed By: #### CREA #### [facility] [address] [address] [address] Archer ChangEGFR-AF CZECH>60Normal>=60The [facility] CampusComment on above:Performed By: #### CREA #### [facility] [address] [place], [place] [address] Dr. Archer ChangEGFR-NON AF CZECH>60Normal>=60The [facility] CampusComment on above:Performed By: #### CREA #### [facility] [address] [place], [place] [address] Dr. Archer ChangCT CHEST W CONon 96-98-6393HY CHEST W CONEXAMINATION: CT CHEST W CON HISTORY: Influenza ; follow-up lung [...] Electronically authenticated by: PA CROW Date: 2022-11-11 11:29NoGood Samaritan HospitalMRI CSPINE WO CONon 74-48-0074TXS [facility] WO CONEXAMINATION: MRI CSPINE WO CON HISTORY: Cervical radiculopathy [...] mild left foraminal stenosis Electronically authenticated by: NATONI TRACEY Date: 2022-08-14 09:[address] [place], [place] [address]INSULINon 07-56-4854Dfzfrlu22.5 uIU/mLNormal2.6-24.9The [facility] CampusComment on above:Performed By: #### LACT #### [facility] [address] [place] [address] Dr. Gianni King AUTO DIFFon 91-18-7677MEBM #0.1 103/ulNormal0.0-0.1The [facility] CampusComment on above:Performed By: #### LACT #### [facility] [address] [place] [address] Dr. Gianni Calderonsophils/100 WBC (Bld)1.2 %Normal0.2-2.0The [facility] Comment on above:Performed By: #### LACT #### [facility] [address] [place] [address] Dr. Gianni Umaña #0.4 103/ulNormal0.0-0.7The [facility] CampusComment on above: Performed By: #### LACT #### [facility] [address] [place] [address] Dr. Gianni Britoosinophils/100 WBC (Bld)5.9 %Normal0.9-7.0The [facility] Comment on above:Performed By: #### LACT #### [facility] [address] [place] [address] Dr. Gianni Britorythrocyte distribution width (RBC) [Ratio]13.4 %Ktogmn93.0-15.0 The [facility] CampusComment on above:Performed By: #### LACT #### [facility] [address] [place] [address] Dr. Gianni DelunaHematocrit (Bld) [Volume fraction]39.6 %Critically low42.0-54.0 The [facility] CampusComment on above:Performed By: #### LACT #### [facility] [address] [place] [address] Dr. Gianni DelunaHemoglobin (Bld) [Mass/Vol]12.8 g/dLCritically low14.0-18.0The [facility] CampusComment on above:Performed By: #### LACT #### [facility] [address] [place] [address] Dr. Gianni Suazo #0.04 10e3/ulCritically high0.00-0.03The [facility] Comment on above:Performed By: #### LACT #### [facility] [address] [place] [address] Dr. Gianni Suazo %0.7 %Critically high0.0-0.5The [facility] CampusComment on above:Performed By: #### LACT #### [facility] [address] [place] [address] Dr. Gianni EspinalMPH #1.9 103/ulNormal1.2-3.8The [facility] CampusComment on above:Performed By: #### LACT #### [facility] [address] [place] [address] Dr. Gianni Espinalmphocytes/100 WBC (Bld)31.7 %Knxomo57.5-60.0The [facility] CampusComment on above:Performed By: #### LACT #### [facility] [address] [place] [address] Dr. Gianni Boo DIFF REQNONormalThe [facility] CampusComment on above: Performed By: #### LACT #### [facility] [address] [place] [address] Dr. Gianni Franco (RBC) [Entitic mass]30.2 ifPtrjui96.9-34.0The [facility] West HospitalComment on above:Performed By: #### LACT #### [facility] [address] [place] [address] Dr. Gianni Franco (RBC) [Mass/Vol]32.3 g/uZQflpdu43.9-35.2The [facility] CampusComment on above:Performed By: #### LACT #### [facility] [address] [place] [address] Dr. Gianni Franco (RBC) [Entitic vol]93.4 aLJiwhzp47.0-94.0The [facility] CampusComment on above:Performed By: #### LACT #### [facility] [address] [place] [address] Dr. Gianni Bauer #0.7 103/ulNormal0.3-0.8The [facility] CampusComment on above:Performed By: #### LACT #### [facility] [address] [place] [address] Dr. Gianni Alexocytes/100 WBC (Bld)11.9 %Normal1.7-12.0The [facility] Comment on above:Performed By: #### LACT #### [facility] [address] [place] [address] Dr. Gianni Andrews #2.9 103/ulNormal1.4-6.5The [facility] CampusComment on above:Performed By: #### LACT #### [facility] [address] [place] [address] Dr. Gianni Gonzalesutrophils/100 WBC (Bld)48.6 %Uqmzsq53.0-75.0The [facility] CampusComment on above:Performed By: #### LACT #### [facility] [address] [address] [address] Gianni Pollard mean volume (Bld) [Entitic vol]9.1 fLCritically low 9.5-13.5The [facility] CampusComment on above:Performed By: #### LACT #### [facility] [address] [address] [address] Gianni DelunaPLT168 103/evVzzhbm594-715Oei [facility] CampusComment on above: Performed By: #### LACT #### [facility] [address] [address] [address] Gianni DelunaRBC4.24 106/ulCritically low4.70-6.10The [facility] CampusComment on above:Performed By: #### LACT #### [facility] [address] [place] [address] Dr. Gianni DelunaWBC6.0 103/ulNormal4.0-11.0The [facility] CampusComment on above: Performed By: #### LACT #### [facility] [address] [place] [address] Dr. Gianni DelunaFRDEN THYROXINE INDEX T7on 79-20-5748FGP0.48Pmgkum9.30-4.50The [facility] CampusComment on above:Performed By: #### LACT #### [facility] [address] [place] [address] Dr. Gianni DelunaT3U36.0 %Ztalhu21.0-40.0The [facility] CampusComment on above: Performed By: #### LACT #### [facility] [address] [place] [address] Dr. Gianni DelunaT4 [Mass/Vol]5.30 ug/dLNormal4.50-12.10The [facility] Comment on above:Performed By: #### LACT #### [facility] [address] [place] [address] Dr. Gianni DelunaGLYCOHEMOGLOBIN A1Con 36-98-0887YDQ RECOMMENDATIONSEE BELOWNormal The [facility] CampusComment on above:Result Comment: ADA RECOMMENDED LIMIT 4.0 - 6.0 ADA THERAPEUTIC TARGET < 7.0 ACTION SUGGESTED > 7.0Performed By: #### DDIM #### [facility] [address] [place] [address] Dr. Gianni DelunaGlucose [Mass/Vol]140 mg/dLCleveland Clinic Fairview HospitalComment on above:Performed By: #### DDIM #### [facility] [address] [place] [address] Dr. Gianni DelunaHbA1c (Bld) [Mass fraction]6.5 %Critically high4.5-6.2[facility] EastComment on above:Performed By: #### DDIM #### [facility] [address] [place] [address] Dr. Gianni Obando PROFILEon 49-75-2665ZIXA-HDL RATIO NORMSTrumbull Memorial HospitalComment on above:Result Comment: 3.3 - 4.4 LOW RISK 4.4 - 7.1 AVERAGE RISK 7.1 - 11.0 MODERATE RISK >11.0 HIGH RISKPerformed By: #### TSH, T7, URIC, CMP, LIPID #### [facility] [address] [place] [address] Dr. Gianni Nguyenesterol [Mass/Vol]104 mg/dLNormal<=200The [facility] Comment on above:Performed By: #### TSH, T7, URIC, CMP, LIPID #### [facility] [address] [place] [address] Dr. Gianni Nguyenesterol in HDL [Mass/Vol]49 mg/vMLtodjk25-10Swy [facility] CampusComment on above:Performed By: #### TSH, T7, URIC, CMP, LIPID #### [facility] [address] [place] [address] Dr. Gianni Nguyenesterol in LDL [Mass/Vol]46.6 mg/dLCleveland Clinic Fairview HospitalComment on above:Performed By: #### TSH, T7, URIC, CMP, LIPID #### [facility] [address] [place] [address] Dr. Yilan ChangCholesterol.total/Cholesterol in HDL [Mass ratio]2.1 {ratio} NormalThe [facility] West CampusComment on above:Performed By: #### TSH, T7, URIC, CMP, LIPID #### [facility] [address] [address] [address] Gianni Moore NORMAL> or = 60 mg/dl - LOW CARDIOVASCULAR RISK <40 mg/dl - HIGH CARDIOVASCULAR RISKCleveland Clinic Fairview HospitalComment on above:Performed By: #### TSH, T7, URIC, CMP, LIPID #### [facility] [address] [address] [address] Gianni DelunaLDL CALC NORMALSEE BELOWCleveland Clinic Fairview HospitalComment on above:Result Comment: <100 mg/dl OPTIMAL 100 - 129 mg/dl NEAR OR ABOVE OPTIMAL 130 - 159 mg/dl BORDERLINE HIGH 160 - 189 mg/dl HIGH >190 mg/dl VERY HIGH Performed By: #### TSH, T7, URIC, CMP, LIPID #### [facility] [address] [address] [address] Gianni DelunaTriglyceride [Mass/Vol]42 mg/dLNormal<=150The [facility] Comment on above:Performed By: #### TSH, T7, URIC, CMP, LIPID #### [facility] [address] [address] [address] Gianni CabralesLDL CALC8.4 mg/dLNoGood Samaritan HospitalComment on above: Performed By: #### TSH, T7, URIC, CMP, LIPID #### [facility] [address] [place] [address] Dr. Gianni Chowdhury 14(COMP METB)on 47-57-2101Tpqbdor [Mass/Vol]2.9 g/dL Critically low3.4-5.0The [facility] CampusComment on above:Performed By: #### TSH, T7, URIC, CMP, LIPID #### [facility] [address] [place] [address] Dr. Gianni DelunaAlbumin/Globulin [Mass ratio]0.8 {ratio}NormalThe [facility] CampusComment on above:Performed By: #### TSH, T7, URIC, CMP, LIPID #### [facility] [address] [place] [address] Dr. Gianni Morgan [Catalytic activity/Vol]127 U/LCritically tgnq51-076Rrv [facility] CampusComment on above:Performed By: #### TSH, T7, URIC, CMP, LIPID #### [facility] [address] [place] [address] Dr. Gianni Bello [Catalytic activity/Vol]23 U/HLssouy02-20Qaa [facility] CampusComment on above:Performed By: #### TSH, T7, URIC, CMP, LIPID #### [facility] [address] [place] [address] Dr. Gianni Marcelo gap [Moles/Vol]8.4 mmol/LNormalThe [facility] CampusComment on above:Performed By: #### TSH, T7, URIC, CMP, LIPID #### [facility] [address] [place] [address] Dr. Gianni Cobb [Catalytic activity/Vol]21 U/NXptdgt53-60Fqj [facility] CampusComment on above:Performed By: #### TSH, T7, URIC, CMP, LIPID #### [facility] [address] [place] [address] Dr. Gianni DelunaBilirubin [Mass/Vol]0.5 mg/dLNormal0.2-1.0[facility] Comment on above:Performed By: #### TSH, T7, URIC, CMP, LIPID #### [facility] [address] [place] [address] Dr. Gianni DelunaCalcium [Mass/Vol]8.3 mg/dLCritically low8.5-10.1The [facility] CampusComment on above:Performed By: #### TSH, T7, URIC, CMP, LIPID #### [facility] [address] [place] [address] Dr. Gianni DelunaChloride [Moles/Vol]107 mmol/SApmloz11-188Day [facility] Comment on above:Performed By: #### TSH, T7, URIC, CMP, LIPID #### [facility] [address] [address] [address] Gianni DelunaCO2 [Moles/Vol]30.6 mmol/KVzburg40.0-32.0The [facility] Comment on above:Performed By: #### TSH, T7, URIC, CMP, LIPID #### [facility] [address] [address] [address] Gianni DelunaCreatinine [Mass/Vol]0.93 mg/dLNormal0.70-1.30The [facility] CampusComment on above:Performed By: #### TSH, T7, URIC, CMP, LIPID #### [facility] [address] [place] [address] Dr. Gianni BritoGFR-AF CZECH>60Normal>=60The [facility] CampusComment on above:Performed By: #### TSH, T7, URIC, CMP, LIPID #### [facility] [address] [place] [address] Dr. Gianni BritoGFR-NON AF CZECH>60Normal>=60The [facility] CampusComment on above:Performed By: #### TSH, T7, URIC, CMP, LIPID #### [facility] [address] [address] [address] Gianni DelunaGlobulin (S) [Mass/Vol]3.5 g/dLNormalThe [facility] CampusComfresenius [facility] on above:Performed By: #### TSH, T7, URIC, CMP, LIPID #### [facility] [address] [place] [address] Dr. Gianni DelunaGlucose [Mass/Vol]114 mg/dLCritically gbeh18-257Nlk [facility] on above:Performed By: #### TSH, T7, URIC, CMP, LIPID #### [facility] [address] [place] [address] Dr. Gianni DelunaPotassium [Moles/Vol]4.0 mmol/LNormal3.5-5.1The [facility] Comment on above:Performed By: #### TSH, T7, URIC, CMP, LIPID #### [facility] [address] [place] [address] Dr. Gianni DelunaProtein [Mass/Vol]6.4 g/dLNormal6.4-8.2The [facility] Comment on above:Performed By: #### TSH, T7, URIC, CMP, LIPID #### [facility] [address] [place] [address] Dr. Gianni DelunaSodium [Moles/Vol]142 mmol/HSdgrte582-006Zad [facility] Comment on above:Performed By: #### TSH, T7, URIC, CMP, LIPID #### [facility] [address] [place] [address] Dr. Gianni DelunaUrea nitrogen [Mass/Vol]11.0 mg/dLNormal7.0-18.0The [facility] CampusComment on above:Performed By: #### TSH, T7, URIC, CMP, LIPID #### [facility] [address] [place] [address] Dr. Gianni Barkley nitrogen/Creatinine [Mass ratio]11.8 mg/mgNormalThe [facility] CampusComment on above:Performed By: #### TSH, T7, URIC, CMP, LIPID #### [facility] [address] [place] [address] Dr. Gianni Herrera 22-95-6697DHZ9.814 uIU/mLNormal0.358-3.740The [facility] CampusComment on above:Performed By: #### LACT #### [facility] [address] [place] [address] Dr. Gianni DelunaURIC ACID SERUMon 46-46-8704Uauri [Mass/Vol]5.2 mg/dLNormal 3.5-7.2The [facility] CampusComment on above:Performed By: #### TSH, T7, URIC, CMP, LIPID #### [facility] [address] [place] [address] Dr. Gianni Oliva ALEX 3-6on 22-94-8157NZ [Catalytic activity/Vol]82 U/L Ppwice61-738Kgn [facility] CampusComment on above:Performed By: #### LACT #### [facility] [address] [place] [address] Dr. Gianni Montoya.MB [Mass/Vol]2.40 ng/mLNormal<=3.60The [facility] Comment on above:Performed By: #### LACT #### [facility] [address] [address] [address] Gianni DelunaHSTROP8.6 pg/mLNormal4.0-76.1The [facility] CampusComment on above:Result Comment: CUT-OFF POINTS HAVE BEEN ESTABLISHED BASED ON THE FOURTH UNIVERSAL DEFINITIONS OF MYOCARDIAL INFARCTION. THE UPPER REFERENCE LIMIT (URL) OF TROPONIN, DEFINED THE 99TH PERCENTILE OF cTnI DISTRIBUTION IN A REFERENCE POPULATION, HAS BEEN CONFIRMED THE DECISION THRESHOLD FOR AR DIAGNOSIS.Performed By: #### LACT #### [facility] [address] [address] [address] Gianni DelunaCT ABD/PELV W CONon 31-54-2367MR ABD/PELV W CONEXAMINATION: CT ABD/PELV W CON HISTORY: NAUSEA WITH [...] fat-containing inguinal hernias. Electronically authenticated by: JAIMIE OCOPER Date: 2022-04-21 00:38NormBethesda North [facility] HospitalLACTATE/LACTIC ACIDon 56-70-3445Ubypmcb [Moles/Vol]2.2 mmol/L Critically high0.4-1.9The [facility] CampusComment on above:Performed By: #### LACT #### [facility] [address] [place] [address] Dr. Gianni DelunaAMYLASEon 38-66-8205Xhejjbc [Catalytic activity/Vol]139 U/L Critically bjxk25-028Fcl [facility] CampusComment on above:Performed By: #### LACT #### [facility] [address] [place] [address] Dr. iGanni Oliva ALEX ADMITon 13-12-2891EL [Catalytic activity/Vol]88 U/L Xsnsck75-671Bvp [facility] CampusComment on above:Performed By: #### CMADM #### [facility] [address] [place] [address] Dr. Gianni Montoya.MB [Mass/Vol]1.82 ng/mLNormal<=3.60The [facility] Comment on above:Performed By: #### CMADM #### [facility] [address] [place] [address] Dr. Gianni DelunaHSTROP7.2 pg/mLNormal4.0-76.1The [facility] CampusComfresenius medical [facility] at [facility] on above:Result Comment: CUT-OFF POINTS HAVE BEEN ESTABLISHED BASED ON THE FOURTH UNIVERSAL DEFINITIONS OF MYOCARDIAL INFARCTION. THE UPPER REFERENCE LIMIT (URL) OF TROPONIN, DEFINED THE 99TH PERCENTILE OF cTnI DISTRIBUTION IN A REFERENCE POPULATION, HAS BEEN CONFIRMED THE DECISION THRESHOLD FOR AR DIAGNOSIS.Performed By: #### CMADM #### [facility] [address] [place] [address] Dr. Gianni MillerO93 ng/vMSonbmn75-27Cwf [facility] CampusComment on above: Performed By: #### CMADM #### [facility] [address] [place] [address] Dr. Gianni King AUTO DIFFon 58-98-6887LLFU #0.0 103/ulNormal0.0-0.1The [facility] CampusComment on above:Performed By: #### CBC #### [facility] [address] [place] [address] Dr. Gianni DelunaBasophils/100 WBC (Bld)0.3 %Normal0.2-2.0The [facility] Comment on above:Performed By: #### CBC #### [facility] [address] [place] [address] Dr. Gianni Umaña #0.0 103/ulNormal0.0-0.7The [facility] CampusComment on above: Performed By: #### CBC #### [facility] [address] [place] [address] Dr. Gianni Britoosinophils/100 WBC (Bld)0.1 %Critically low0.9-7.0The [facility] CampusComment on above:Performed By: #### CBC #### [facility] [address] [place] [address] Dr. Gianni Britorythrocyte distribution width (RBC) [Ratio]13.5 %Fmdprx41.0-15.0 The [facility] CampusComment on above:Performed By: #### CBC #### [facility] [address] [place] [address] Dr. Gianni DelunaHematocrit (Bld) [Volume fraction]45.8 %Vfyfxt46.0-54.0The [facility] CampusComment on above:Performed By: #### CBC #### [facility] [address] [place] [address] Dr. Gianni DelunaHemoglobin (Bld) [Mass/Vol]15.3 g/iLTufcqb98.0-18.0The [facility] CampusComment on above:Performed By: #### CBC #### [facility] [address] [place] [address] Dr. Gianni Suazo #0.05 10e3/ulCritically high0.00-0.03The [facility] Comment on above:Performed By: #### CBC #### [facility] [address] [place] [address] Dr. Gianni Suazo %0.5 %Normal0.0-0.5The [facility] CampusComment on above: Performed By: #### CBC #### [facility] [address] [address] [address] Gianni Barragan #0.8 103/ulCritically low1.2-3.8The [facility] Comment on above:Performed By: #### CBC #### [facility] [address] [address] [address] Gianni Espinalmphocytes/100 WBC (Bld)7.7 %Critically low20.5-60.0The [facility] CampusComment on above:Performed By: #### CBC #### [facility] [address] [address] [address] Gianni Boo DIFF REQNONormalThe [facility] CampusComment on above: Performed By: #### CBC #### [facility] [address] [place] [address] Dr. Gianni Franco (RBC) [Entitic mass]30.4 blHjaxms06.9-34.0The [facility] CampusComment on above:Performed By: #### CBC #### [facility] [address] [place] [address] Dr. Gianni Franco (RBC) [Mass/Vol]33.4 g/nWVyuesb23.9-35.2The [facility] CampusComment on above:Performed By: #### CBC #### [facility] [address] [place] [address] Dr. Gianni Franco (RBC) [Entitic vol]90.9 sGEbtuoa15.0-94.0The [facility] CampusComment on above:Performed By: #### CBC #### [facility] [address] [place] [address] Dr. Gianni Bauer #0.4 103/ulNormal0.3-0.8The [facility] CampusComment on above:Performed By: #### CBC #### [facility] [address] [place] [address] Dr. Gianni Alexocytes/100 WBC (Bld)3.3 %Normal1.7-12.0[facility] Comment on above:Performed By: #### CBC #### [facility] [address] [address] [address] Gianni GonzalesUT #9.7 103/ulCritically high1.4-6.5The [facility] Comment on above:Performed By: #### CBC #### [facility] [address] [place] [address] Dr. Gianni Gonzalesutrophils/100 WBC (Bld)88.1 %Critically high43.0-75.0The [facility] CampusComment on above:Performed By: #### CBC #### [facility] [address] [place] [address] Dr. Gianni Talet mean volume (Bld) [Entitic vol]8.9 fLCritically low 9.5-13.5The [facility] CampusComment on above:Performed By: #### CBC #### [facility] [address] [place] [address] Dr. Gianni DelunaPLT198 103/jpKyhbwd764-351Lsl [facility] CampusComment on above: Performed By: #### CBC #### [facility] [address] [place] [address] Dr. Gianni DelunaRBC5.04 106/ulNormal4.70-6.10The [facility] CampusComment on above:Performed By: #### CBC #### [facility] [address] [place] [address] Dr. Gianni DelunaWBC11.0 103/ulNormal4.0-11.0The [facility] CampusComment on above:Performed By: #### CBC #### [facility] [address] [place] [address] Dr. Gianni DelunaCovinoah-19 PCR ([facility]LA[facility])on 59-64-3315APHN-CoV-2 (COVID-19) RNA NICHOLE+probe Ql (Unsp spec)Not detectedNormalNOT DETECTEDThe [facility] Comment on above:Result Comment: When diagnostic testing is negative, the [...] for this test is supported by the [place] of Health and Human Service's declaration that circumstances exist to justify the emergency use of in vitro diagnostics for the detection and/or diagnosis of the virus that causes COVID-19. This EUA will remain in effect for the duration of the COVID-19 declaration justifying emergency of IVDs, unless it is terminated or revoked by the FDA (after which the test may no longer be used).Performed By: #### CVDTBH #### [facility] [address] [place] [address] Dr. Gianni Leonardoon 74-68-3749H-DIMER0.37 mg/L FEUNormal<=0.59The [facility] Hospitalment on above:Performed By: #### DDIM #### [facility] [address] [place] [address] Dr. Gianni Leonardo [facility] TrumbullComment on above:Result Comment: Increases in D-Dimer concentration observed with thromboembolic events [...] stress, and generalized hospitalization. Performed By: #### DDIM #### [facility] [address] [place] [address] Dr. Gianni DelunaLACTATE/LACTIC ACIDon 76-86-5360Kgfnvbm [Moles/Vol]2.3 mmol/L Critically high0.4-1.9The [facility] Hospitalment on above:Performed By: #### LACT #### [facility] [address] [place] [address] Dr. Gianni DelunaLIPASEon 69-97-5658Ytpcdf [Catalytic activity/Vol]48.0 U/L Critically low73.0-393.0The [facility] CampusComment on above:Performed By: #### LACT #### [facility] [address] [place] [address] Dr. Gianni Chowdhury 14(COMP METB)on 40-64-6018Rrydrbl [Mass/Vol]3.9 g/dLNormal 3.4-5.0The [facility] CampusComment on above:Performed By: #### LACT #### [facility] [address] [place] [address] Dr. Gianni DelunaAlbumin/Globulin [Mass ratio]1.0 {ratio}NormalThe [facility] CampusComment on above:Performed By: #### LACT #### [facility] [address] [place] [address] Dr. Gianni TadeoP [Catalytic activity/Vol]127 U/LCritically zbyt93-594Mzd [facility] CampusComment on above:Performed By: #### LACT #### [facility] [address] [place] [address] Dr. Gianni Bello [Catalytic activity/Vol]27 U/YIznrbg90-01Che [facility] CampusComment on above:Performed By: #### LACT #### [facility] [address] [place] [address] Dr. Gianni Marcelo gap [Moles/Vol]15.9 mmol/LNormalThe [facility] Comment on above:Performed By: #### LACT #### [facility] [address] [place] [address] Dr. Gianni Cobb [Catalytic activity/Vol]27 U/BGahcyz63-07Hsk [facility] CampusComment on above:Performed By: #### LACT #### [facility] [address] [place] [address] Dr. Gianni DelunaBilirubin [Mass/Vol]0.9 mg/dLNormal0.2-1.0The [facility] Comment on above:Performed By: #### LACT #### [facility] [address] [place] [address] Dr. Gianni DelunaCalcium [Mass/Vol]8.9 mg/dLNormal8.5-10.1The [facility] Comment on above:Performed By: #### LACT #### [facility] [address] [place] [address] Dr. Gianni DelunaChloride [Moles/Vol]103 mmol/OFufuqn50-082Kdw [facility] Comment on above:Performed By: #### LACT #### [facility] [address] [address] [address] Gianni DelunaCO2 [Moles/Vol]24.2 mmol/GVtuxxf61.0-32.0The [facility] Comment on above:Performed By: #### LACT #### [facility] [address] [place] [address] Dr. Gianni DelunaCreatinine [Mass/Vol]1.27 mg/dLNormal0.70-1.30The [facility] CampusComment on above:Performed By: #### LACT #### [facility] [address] [place] [address] Dr. Archer ChangEGFR-AF CZECH>60Normal>=60The [facility] CampusComment on above:Performed By: #### LACT #### [facility] [address] [place] [address] Dr. Gianni BritoGFR-NON AF YZOGYAFY18 mL/min/1.34i1Dboyeefgjg low>=60The [facility] CampusComment on above:Performed By: #### LACT #### [facility] [address] [place] [address] Dr. Gianni DelunaGlobulin (S) [Mass/Vol]3.9 g/dLNormalThe [facility] CampusComment on above:Performed By: #### LACT #### [facility] [address] [place] [address] Dr. Gianni DelunaGlucose [Mass/Vol]145 mg/dLCritically oeum65-028Jir [facility] CampusComment on above:Performed By: #### LACT #### [facility] [address] [place] [address] Dr. Gianni DelunaPotassium [Moles/Vol]4.1 mmol/LNormal3.5-5.1The [facility] Comment on above:Performed By: #### LACT #### [facility] [address] [address] [address] Gianni DelunaProtein [Mass/Vol]7.8 g/dLNormal6.4-8.2[facility] Comment on above:Performed By: #### LACT #### [facility] [address] [address] [address] Gianni DelunaSodium [Moles/Vol]139 mmol/KZbcznq394-873Vmi [facility] Comment on above:Performed By: #### LACT #### [facility] [address] [place] [address] Dr. Gianni DelunaUrea nitrogen [Mass/Vol]22.0 mg/dLCritically high7.0-18.0[facility] EastComment on above:Performed By: #### LACT #### [facility] [address] [address] [address] Gianni DelunaUrea nitrogen/Creatinine [Mass ratio]17.3 mg/mgNoalThRegency Hospital Cleveland WestComment on above:Performed By: #### LACT #### [facility] [address] [place] [address] Dr. Gianni DelunaXR ABD FLAT UP_PA Graciela 95-29-4579PA ABD FLAT UP_PA CHXR ABD FLAT UP_PA CH 04/20/2022 8:53 PM EDT CLINICAL INDICATION: Nausea [...] Electronically authenticated by: JAIMIE COOPER Date: 2022-04-20 21:58NoGood Samaritan HospitalUS RICHELLE DOP LEG LTon 60-17-0407DA RICHELLE DOP LEG LTUltrasound venous duplex scan left lower extremity CLINICAL: [...] Electronically authenticated by: LAWANDA VEE Date: 2022-03-18 13:25[facility] HospitalUS RICHELLE DOP LEG LTon 49-80-0472ZI RICHELLE DOP LEG LTEXAM: US RICHELLE DOP LEG LT HISTORY: Left [...] Electronically authenticated by: ANTONI JOLLEY Date: 2021-12-06 22:57[facility] Vital Signs Date TimeVital SignValuePerforming WzwehnhicDgrdorhh09-11-6486 17:32-0500 Diastolic blood rtmoriaa68 mm[Hg][facility]01-22-2025 17:32-0500Systolic blood eylyfvmr317 mm[Hg][facility] 09-07-2024 17:14-0500Body .72 cmSelect [facility] 09-07-2024 17:14-0500Body mass index (BMI) [Ratio]19 kg/v6WtniqbvzrSelect [facility]01-22-2025 17:14-0500Body cytksasxhbn98.5 [degF][facility]01-22-2025 17:14-0500Body jnlxvy31.69 kgSelect [facility] Specialty [facility] [place]01-22-2025 17:14-0500Heart rate49 /[facility]01-22-2025 17:14-0500Respiratory rate18 /[facility]01-22-2025 17:14-6710IkA9% (BldA) [Mass fraction]99 %[facility] Encounters Encounter DateEncounter Type[facility] ProviderFacilityStart: 29-68-4127rexkfcepnv Mohamad A. MouchliFacility:Jimbo DHStart: 15-35-1255qcgnrmhnibLqvciyl MouchliFacility:Jimbo DHStart: 09-07-2024 End: 43-19-1597bzzhyruumbOlppsbcufPremier Health [facility] Work Phone: Start: 09-07-2024 End: 49-43-9410Iqlamni encounter procedureAtrium Health [facility] Work Phone: Start: 06-09-2024 End: 07-51-0863Phwlnf flowsheetNatalie A Felter GLOBAL PROGRAM DIRECTOR-[employer] Work Phone: noms SWS DERMStart: 06-09-2024 End: 97-04-1442Ulcsqj flowsheetNatalie A Felter GLOBAL PROGRAM DIRECTOR-[employer] Work Phone: noms SWS DERMStart: 06-09-2024 End: 45-25-4739Fjdnsr outpatient visit 15 minutesNatalie A Felter GLOBAL PROGRAM DIRECTOR-[employer] Work Phone: noms SWS DERMComment on above:Melanocytic nevus of trunk; Seborrheic keratosis; Lentigines; Actinic keratosis; Neoplasm of unspecified behavior of bone, soft tissue, and skinStart: 06-09-2024 End: 16-95-2892odiwvqcrvzGQYEVVM A FELTERNot AvailableStart: 10-26-2023 End: 90-69-6763hfwtbnwjowCiucjzw Vytautas Giedraitis MDFacility:[facility] [place] Start: 09-21-2023 End: 59-80-6103ydjppjexwyQezlgnm Vytautas Giedraitis MDFacility:PM [facility] Start: 08-31-2023 End: 01-37-6315xluksjefrfGuprson Vytautas Giedraitis MDFacility:[facility] [place] Start: 08-05-2023 End: 19-15-6526ioozwlibwvUQJDNH E FLEMINGNot AvailableStart: 07-17-2023 ambulatoryEvens Archer MDFacility:[facility] Hospitaltart: 07-08-2023 End: 25-99-6373tqlrckhyncILJYJVHUniversity Hospitals Geauga Medical Centertart: 06-29-2023 End: 70-11-5000brcjnbtmjkFKTXBerger Hospitaltart: 06-29-2023 End: 80-81-4159Cumnghoqj for other preprocedural examinationEHMercy Health Fairfield Hospitaltart: 17-40-1791Vmqvtdrfz for other preprocedural examinationEHWhite Hospitaltart: 05-20-2023 End: 96-88-0945ktyhizkoxfLGNWBerger Hospitaltart: 11-13-2022 End: 01-48-7613vpuqewseqbOF DOUGLAS HOY .Facility:R9Pfsrn: 11-11-2022 End: 72-07-8421nkmeolvcccKQ DOUGLAS HOY .Facility:W0Hxzfb: 08-13-2022 End: 53-07-3549fiuobsbysaOK DOUGLAS HOY .Facility:H9Oxhzo: 62-10-1068mfpjjxekov DR EVENS ARCHER .Facility:P6Ggefm: 06-03-2022 End: 93-30-1487zsjicqyipwZB EVENS ARCHER .Facility:P4Osces: 04-20-2022 End: 25-48-7521yohprkbjpvRI EVENS ARCHER .Facility:I9Imgvh: 03-18-2022 End: 22-23-8163xbdzcfcsfiCO EVENS ARCHER .Facility:U2Wcxai: 12-06-2021 End: 59-31-5391pcopdgbpbwRX EVENS ARCHER .Facility: Procedures DateProcedureProcedure DetailPerforming ClinicianStart: 04-43-0690PXBW / NAIL BIOPSYNatalie A Felter GLOBAL PROGRAM DIRECTOR-[employer] Work Phone: Start: 18-32-8167WIRXYWMJUAC SKIN LESIONNatalie A Felter GLOBAL PROGRAM DIRECTOR[employer] Work Phone: Start: 57-33-1335KDK screeningDR EVENS ARCHER .Comment on above:Performed By: #### PSASC #### [facility] [address] [place] [address] Dr. Gianni Deluna Plan of Treatment DateCare ActivityDetailAuthorStart: 06-12-2025 End: 75-69-4782Vqsfsuq encounter bdigboyid67/27/2025 9:55 AM EDT Office Visit [facility] [address] [place] [address] Ora Becker, GLOBAL PROGRAM DIRECTOR-HOG SAWYER [address] [place], [place] [id number] [facility] DERMStart: 06-09-2024 End: 42-99-4090Nydlqdz encounter hcqstoqtq25/24/2024 10:55 AM EDT Office Visit [facility] [address] [place] [address] Ora Becker, GLOBAL PROGRAM DIRECTOR-HOG SAWYER [address] [place] [address] ArrivedNOMS SWS DERMComment on above: ArrivedDermatopathology examDermatopathology exam Pathology and Cytology Timed Neoplasm of unspecified behavior of bone, soft tissue, and skin Release Upon Ordering for 1 Occurrences starting 06/09/2024[facility] Work Phone: comment on above:Release Upon Ordering for 1 Occurrences starting 06/09/2024 Payers DatePayer CategoryPayerPolicy [id number] (Managed Care)[employer] Member Subscriber Plan / Payer (Effective 2021-Present) Name: Donnie Denton Adrian Relation to Subscriber: Self Name: Donnie Denton Payer ID: Not on file Group ID: [id number] Type: Not on file Address: [facility] [address] [place] [id number]-hle [id number] 2.0.1.100917.3.57[id number] 2.0.1.424695.3.57[id number] 2.0.1.272965.3.57[id number] 2.840.1.925261.3.57[id number] 2.0.1.733838.3.57[id number] 2.840.1.451341.3.57[id number] 2.840.1.011015.3.57[id number] 2.16.840.1.160804.3.57[id number] 2.16.840.1.529860.3.57[id number] 2.16.840.1.783591.3.57[id number] 2.16.840.1.576056.3.579.[id number] 2.16.840.1.079441.3.579.[id number] 2.16.840.1.463432.3.57[id number] 2..840.1.709873.3.579.2.727 Social History DateTypeDetailFacilityStart: 08-05-2023 End: 92-69-9383Mfhxxst smoking status NHISNever smoked tobaccoNOMS Healthcare Start: 88-94-5575Nbhwlfy use and exposureSmokeless tobacco non-userNOMS HealthcareStart: 08-05-2023 End: 88-22-5196Smizigc of Social functionNOMS HealthcareStart: 08-05-2023 End: 55-52-1501Xfvjlpl use panelNOMS HealthcareStart: 69-93-8536Wyp assigned at birthNot on fileNOMS HealthcareStart: 37-04-5034Aiougmsrz beverage intake Lifetime non-drinker (finding)[facility] HealthcareStart: 18-78-2246JgnSiyu (finding) [facility]art: 10-43-7160Dxj Assigned At [facility] Medical Equipment Procedure CodeEquipment CodeEquipment Original TextEquipment IdentifierDates Blood Sugar Diagnostic (Onetouch Ultra Test) stripStart: 09-07-2024 History of Present illness Narrative 06-09-2024 Note Date & RnnuQybdXcgzfivd29-86-2060 History of Present illness Narrative* Ora Becker, GLOBAL PROGRAM DIRECTOR-HOG SAWYER - 06/09/2024 10:55 AM EDT Images from the original note were not [...] benign pigmented lesions that occur on sun-exposed andsun-damaged skin. No treatment is necessary. Recommended regular [...] lesions that fail to resolve should be re- evaluated. Cryotherapy performed today; see procedure note Diagnosis: Actinic keratosis Indication: Precancerous Location: see skin exam Consent: Verbal consent was obtained and risks were discussed, including, but not limited to risks of scarring, darker or senior water/wastewater engineer pigmentary changes, recurrence, incomplete removal and infection. [...] year, pending biopsy result [facility] 07-08-2023 Note Date & PsvaLadfKeepdpcb51-54-4812 NoteCardiovascular Medicine [facility] SUBJECTIVE Chief Complaint Patient presents with [...] Final Atrial Rate 06/29/2023 47 BPM Final WV Interval 06/29/2023 154 ms Final QRS DURATION 06/29/2023 82 ms Final QT Interval 06/29/2023 482 ms Final QTC CALCULATION(BAZETT) 06/29/2023 426 ms Final P [place] 06/29/2023 16 degrees Final R-[place] 06/29/2023 55 degrees Final T Wave [place] 06/29/2023 41 degrees Final No results found for: EXTCMP, BMPR1A, CBCDIF, BNP, BNP, LASAP, RED Testing/Procedures: No echocardiogram results found for the past 14 days No echocardiogram results found for the past 12 months Encounter Date: 06/29/23 ECG 12 lead Result Value Ventricular Rate 47 Atrial Rate 47 WV Interval 154 QR (more content not included)...[facility] Progress note 07-08-2023 Note Date & LiizEzspJtaxuask71-28-9048 NotePatient here c/o LE edema since heart cath [...] myalgias. All other systems reviewed and are negative.[facility] Progress note 06-29-2023 Note Date & TmbbBwcvEuealvxh80-16-6508 NoteCardiovascular Laboratory Report FINAL IMPRESSIONS: Long segment, moderate to [...] inhibitor Follow-up with Dr. Murillo in the [place] office in the next 2 to 4 weeks PROCEDURES: Ultrasound-guided access to the right common femoral artery, limited femoral angiography, ultrasound-guided access to the right common femoral vein, right heart catheterization, bilateral selective coronary angiography, placement of a 6 Nauruan Mynx wash tub machine operator closure device METHODS: After risks, benefits, and [...] micropuncture kit was upsized to a 6 Nauruan 11 cm sheath. Angiography via the sheath [...] procedure. All catheters were removed. A 5 Nauruan Mynx closure device was deployed per protocol [...] closure device. INDICATIONS: Preoperative evaluation, coronary artery disease.[facility] Progress note 05-20-2023 Note Date & NvruGfowKhlaaidj34-13-7555 NoteBELLEVJAMES [facility] Note Chief Complaint: New patient here to establish care. Ref from Dr. Archer for surgery clearance. He has hx of CAD and previously followed with [facility] back in 2014. He [...] He was evaluated at [facility]. It was elected to continue [...] reasonable target. Was seen at [facility]; single-vessel coronary artery disease with a preserved [...] Mid LAD. This wo (more content not included)...[facility] Evaluation note Note Date & TypeNoteFacilityEvaluation note* Diagnosis Melanocytic nevus of trunk Benign neoplasm of skin of trunk, except scrotum Seborrheic keratosis Lentigines Actinic keratosis Neoplasm of unspecified behavior of bone, soft tissue, and skin documented in this encounter [facility] Evaluation note Note Date & TypeNoteFacilityEvaluation noteNo assessment information available [facility] Work Phone: Summary Purpose Family History No Family History Records Found Relationship Condition Age at Onset Recorded Date/T dewey father Malignant neoplasm Unknown Heart diseaseUnknownmotherMalignant neoplasmUnknown Advance Directives No Advanced Directives Records Found [...] and content) DATE CREATED AUTHOR 11/21/2022 [facility] DATE CREATED AUTHOR AUTHOR'S ORGANIZ ATION 07/10/2023 [facility] DATE CREATED AUTHOR AUTHOR'S ORGANIZ ATION 11/03/2023 [facility] DATE CREATED AUTHOR AUTHOR'S ORGANIZ ATION 06/11/2024 [facility] DATE CREATED AUTHOR AUTHOR'S ORGANIZ ATION 02/23/2025 [facility] Care Teams (unrecognized sec tion and content) Team Status: Active Member Role Status Dates Evens Archer MD Primary Care Provider Active Team Status: Inactive Member Role Status Dates Evens Archer MD Primary Care Provider Active Start: September 07, 2024 End: September 07mandjuan Conroy APRNAttenruth ProviderActiveStart: September 07, 2024 End: September 07, 2024 [...] BE BASED ON THE PRIMARY CLINICAL RECORDS. [employer] provides no warranty or guarantee of the accuracy or completeness of information in this document.
--- NOTE | 2025-07-10 13:40 | CT_ITS ---
The [address] [address] Patient Name: UMM TAI MRN: [id number] date: 1955 Sex: M Assigned Patient Location: LAB Current Patient Location: LAB Accession/Order Number: [id number] Exam Date: 07/10/2025 14:45 Report Date: 07/10/2025 15:32 At the request of: EVENS GIANG MD Procedure: CT abdomen pelvis w con CT ABDOMEN AND PELVIS WITH INTRAVENOUS CONTRAST: CLINICAL HISTORY: Diverticulitis COMPARISON: None TECHNIQUE: Spiral images were obtained through the abdomen and pelvis following the administration of intravenous contrast. This CT exam was performed using one or more following dose reduction techniques: Automated exposure control, adjustment of the mA and/or kV according to patient size, or use of iterative reconstruction technique. FINDINGS: Lung Bases: [No acute findings.] Organs:Hepatic steatosis. Gallbladder CBD pancreas spleen and adrenal glands all appear unremarkable. No enhancing renal mass or hydronephrosis. Abdominal aorta appears normal in caliber.[ GI: Stomach is grossly unremarkable. Small bowel appears nondilated. Sigmoid diverticulosis with wall thickening. No obstruction.[ Pelvis:[Urinary bladder and prostate gland appear unremarkable.] Peritoneum/Retroperitoneum:No free air, free fluid or lymphadenopathy.[ Abd wall/Bones:Abdominal wall demonstrates no acute findings. Osseous structures demonstrate degenerative change.[ CT/CT abdomen pelvis w con IMPRESSION: Sigmoid diverticulosis with wall thickening. Developing colitis or diverticulitis cannot be excluded. No obstruction is seen. Hepatic steatosis. Impression dictated by: Demarco Stout Jr., DVinicioOVinicio 07/10/2025 3:32 PM Dictation Location: [place] [address] Electronically authenticated by: [id number] Y Date: 07/10/2025 15:32
[2025-07-10 13:46] LABS: Estimated GFR (African America >60 (>=60 mL/min/1.73m^2); Estimated GFR (Non-African Ame >60 (>=60 mL/min/1.73m^2)
== END 2025-07-10 13:26 | disposition home or self-care (01) ==
LOC: LAB 13:28
PROVIDERS: Pathology Anatomic Pathology & Clinical Pathology; PCP Family Medicine; Visit Provider Family Medicine
DX: Z01.818 Encounter for other preprocedural examination (principal); K57.92 Diverticulitis of intestine, part unspecified, without perforation or abscess without bleeding; K57.90 Diverticulosis of intestine, part unspecified, without perforation or abscess without bleeding; K76.0 Fatty (change of) liver, not elsewhere classified
CPT/HCPCS: 36415; 74177; 82565; Q9967